=== PATIENT | female | born 1975 | race Caucasian/White ===

== ENCOUNTER 2024-01-03 20:12 | Emergency (ER) | payer SELFPAY ==
[2024-01-03 20:13] VITALS: BP 110/72; PULSE 75; RESP 16; TEMP 36.3; O2SAT 99; BMI 19.7
== END 2024-01-03 20:40 | disposition left against medical advice (07) ==
LOC: ED 21:06
DX: K08.89 Other specified disorders of teeth and supporting structures (principal); Z53.21 Procedure and treatment not carried out due to patient leaving prior to being seen by health care provider

== ENCOUNTER 2024-02-20 17:13 | Emergency (ER) | payer MEDICAID, SELFPAY ==
[2024-02-20 17:13] VITALS: BP 136/81; PULSE 99; RESP 14; TEMP 36.1; O2SAT 99; BMI 19.5
--- NOTE | 2024-02-20 18:16 | CT_ITS ---
STUDY: CT ABDOMEN AND PELVIS WITH CONTRAST REASON FOR EXAM: Female, 48 years old. Weight loss and pelvic mass. S/p hysterectomy years RADIATION DOSAGE (If Supplied By Facility): CTDIvol = ( 12.53 ) mGy, DLP = ( 241.19 ) mGycm TECHNIQUE: Transaxial images were obtained from the dome of the diaphragm to the symphysis pubis without oral contrast. IV 75mL Isovue-370 was administered. Sagittal and coronal images were reconstructed. Individualized dose optimization techniques were used for this CT. COMPARISON: None. FINDINGS: There is mild focal right lower lung airspace consolidation. The visualized portions of the heart are within normal limits. Normal liver. Normal gallbladder and extrahepatic biliary system. Normal spleen. Normal pancreas. Normal bilateral adrenal glands. There is 2.7 cm cyst of the right kidney. Normal left kidney. Normal visualized stomach. Normal small intestine. Normal colon. There is moderate stool. The appendix is visualized and appears normal. Normal abdominal aorta. Normal inferior vena cava. Normal retroperitoneum. Normal urinary bladder. There is absence of the uterus consistent with a prior hysterectomy. There is no free fluid in the abdomen or pelvis. Normal abdominal wall. Normal osseous structures. CT/Abdomen/Pelvis W IV Cont ONLY IMPRESSION: No dominant mass or obstruction. Small right lower lobe pneumonia. Electronically Signed: Hossein Day MD at 19:57 EST ,
--- NOTE | 2024-02-20 18:18 | EX.ED.DYSGE1 ---
HPI History of Present Illness Chief Complaint: General Illness Informant: patient Onset/Context/Timing Onset: Month(s) Context: Gradual Onset Timing: Continuous Current Severity: Mild Maximum Severity: Mild Narrative Narrative: 48-year-old female history of prior hysterectomy years ago. Was seen in the [facility] facilities about a month ago. Had a pelvic ultrasound that they thought was her uterus and they found that she had a hysterectomy they are concerned she might have a pelvic mass. They have been trying to get a hold of her but patient says she has not been taking calls. They did get a hold of her today and she came in to be evaluated. She believes that she has had a weight loss of around 17 to 24 pounds in the last 3 months. For the last 2 years she has had intermittent constipation and diarrhea. Patient has a history of anxiety and would like something for her nerves. No history of cancer. No other significant abdominal surgeries. Prior similar symptoms: Yes Recent Illness/Hospitalization: No PFSH PFSH Medical History History of pulmonary embolism Anxiety Allergy/AdvReac Type Severity Reaction Status Date / Time metronidazole (From Flagyl) Allergy Severe Anaphylaxis Verified 02/20/24 17:14 Surgical History History of back surgery H/O: hysterectomy Social History Smoking Status: Unknown if ever smoked ROS ROS ED ROS Narrative Unintentional weight loss. Constipation and diarrhea. Constitutional Constitutional ED: Denies chills or fever(s) Eyes Eyes: Denies blurry vision ENT ENT ED: Denies ear pain Cardiovascular Cardiovascular: Denies chest pain Respiratory/Chest Respiratory/Chest: Denies cough or dyspnea Gastrointestinal Gastrointestinal: Reports constipation and diarrhea; Denies abdominal pain, melena, nausea or vomiting Genitourinary Genitourinary ED: Denies dysuria or hematuria Musculoskeletal Musculoskeletal: Denies arthralgias Integumentary Denies abscess Neurologic Neurologic: Denies headache(s) Psychiatric Psychiatric: Reports anxiety Endocrine Endocrinology: Denies cold intolerance Hematologic/Lymphatic Hematologic/Lymphatic: Reports none Allergic/Immunologic Allergic/Immunologic ED: Denies mouth swelling, tongue swelling or urticaria EXAM Physical Exam Narrative Exam Narrative: Well-appearing middle-aged female. Vital signs are stable afebrile. She is anxious. H EENT exam unremarkable. Neck nontender. Lungs clear. Heart regular rate and rhythm rate about 95 no murmur. Chest wall and ribs nontender. Abdomen soft, nontender, nondistended normal bowel sounds peritoneal signs. No obvious mass. Back nontender. Moving all 4 extremities. Nontender no edema. Normal strength. Normal range of motion. She is awake and alert. No focal motor deficits. Const Vital Signs: 02/20/24 17:13 02/20/24 18:09 02/20/24 20:00 Temperature 97 F L Temperature Source Temporal Pulse Rate 99 67 Respiratory Rate 14 12 Respiratory Effort Normal Respiratory Pattern Normal Blood Pressure 136/81 H 94/76 Blood Pressure Mean 99 82 Pulse Ox 99 96 Oxygen Delivery Method Room Air Room Air Positive well nourished and well developed; Negative for obese, cachectic, contractures or unkempt General Appearance ED: well developed and NAD; Negative for unkempt, cachectic, contractures, cyanotic, diaphoretic or pallor Nutritional Appearance: Negative for cachectic or obese HEENT Reports moist mucous membranes Negative for trauma or tenderness Eyes PERRL and EOMs intact bilaterally Neck no lymphadenopathy, supple and no JVD General: Negative for tenderness Lymph Lymphatic: Negative for other Chest Wall inspection of chest normal and palpation of chest normal Resp normal respiratory effort and clear to auscultation bilaterally Effort and Inspection: Negative for retractions Auscultation: Negative for rales, rhonchi or wheezes Cardio regular rate, regular rhythm, S1 normal heart sound, S2 normal heart sound and no murmurs Rate: Negative for bradycardia or tachycardic Rhythm: Negative for abnormal rhythm GI normal to inspection, nondistended, normoactive bowel sounds, non-tender, non-distended and no masses; Negative for hepatosplenomegaly Inspection: Negative for abdominal distention Auscultation: normoactive bowel sounds Palpation: soft; Negative for tender, guarding, splenomegaly or rebound tenderness present Back/Spine no CVA tenderness General Back: Negative for CVA tenderness Cervical Spine: Negative for cervical spine tenderness Thoracic Spine / Upper Back: Negative for thoracic spinal tenderness Lumbar Spine / Lower Back: Negative for lumbar spinal tenderness Extremity normal to inspection General Extremety ED: Negative for edema or tenderness General Extremity: Negative for edema Neuro oriented x3 and CN's II-XII intact bilaterally Sensorium / Orientation: alert; Negative for orientation impaired, lethargic or stuporous Psych mental status grossly normal Appearance: Negative for unkempt Attitude: No agitated Mood & Affect: anxious; Negative for depressed Skin no rashes or lesions noted and no wounds General Skin Exam: Negative for jaundice or pallor Lesions: No lesion noted Rashes: No rashes noted Trauma: Negative for abrasion Wounds: Negative for wounds noted MDM MDM MDM Narrative Medical decision making narrative: 48-year-old female reported hysterectomy years ago. Has had recent weight loss of the last 3 months of around 20 pounds. Concern on a prior ultrasound another facility may have shown a mass. CAT scan and labs are being obtained. Exam is benign. She be given a dose of IV Ativan for her nerves and anxiety. Repeat exam patient is doing well at 8:44 PM. Abdomen benign. She will be discharged home with outpatient follow-up with her primary care physician to [facility]. Weight loss uncertain etiology. History & Record Review Discussion w/independent historian: Patient and Friend Lab Data Attestation: I reviewed the patient's lab results. Lab results narrative: CBC normal. White count of 10. H&H 14 and 42. Platelets 307. Electrolytes unremarkable gap 5. Normal BUN and creatinine. Glucose 98. Liver enzymes normal. CAT scan no acute abnormality. Labs: Laboratory Results - last 24 hr 02/20/24 18:24 WBC 10.3 RBC 4.56 Hgb 14.7 Hct 42.0 MCV 92.1 MCH 32.2 H MCHC 35.0 RDW Std Deviation 46.8 H RDW Coeff of Angel 13.7 Plt Count 307 MPV 9.1 Immature Gran % (Auto) 0.300 Neut % (Auto) 57.6 Lymph % (Auto) 32.2 [place] % (Auto) 7.9 Eos % (Auto) 1.6 Baso % (Auto) 0.4 Absolute Neuts (auto) 5.9 Absolute Lymphs (auto) 3.30 Nucleated RBC % 0 Sodium 142 Potassium 3.6 Chloride 110 H Carbon Dioxide 27.0 Anion Gap 5 BUN 11 Creatinine 0.85 Estim Creat Clear Calc 65.81 Est GFR (MDRD) Af Amer 91 Est GFR (MDRD) Non-Af 75 BUN/Creatinine Ratio 12.9 Glucose 98 Calcium 9.3 Total Bilirubin 0.30 AST 10 L ALT 19 Alkaline Phosphatase 57 Total Protein 7.0 Albumin 3.8 Globulin 3.2 Albumin/Globulin Ratio 1.2 Radiography Diagnostic Testing: Clinical Impression(s) from Imaging Studies Abdomen/Pelvis CT 02/20/24 18:16 IMPRESSION: No dominant mass or obstruction. Small right lower lobe pneumonia. Electronically Signed: Hossein Day MD at 19:57 EST , Discharge Plan Triage Chief Complaint: General Illness ED Provider: Juan Lovell Dx/Rx/DC Orders Clinical Impression: Abnormal weight loss Primary Care Provider: Care Physician,No Primary Referrals: Care Physician,No Primary [Primary Care Provider] - Activity Restrictions/Additional Instructions: Follow-up with your primary care physician for your weight loss. We do not have a specific cause for that tonight. Your lab work was normal. The CAT scan of your abdomen showed no signs of any type of mass or cancer. Print Language: Divehi Disposition Disposition: Home, Self Care
[2024-02-20] MEDS: LORazepam 2 MG/ML Syringe 1 MG IV (18:25)
[2024-02-20 18:32] LABS: Absolute Neutrophil Count 5.9 X10^3/uL (2.0-7.7); Basophil# 0.04 X10^3/uL; Basophil% 0.4 % (0-1); Eosinophil# 0.16 X10^3/uL; Eosinophils% 1.6 % (0-5); Hemoglobin 14.7 g/dL (12.0-15.0); Lymphocyte % 32.2 % (19-41); Mean Corpuscular Hgb 32.2 pg (27.0-32.0); Mean Corpuscular Volume 92.1 fL (81-99); Mean Platelet Vol. 9.1 fl (6.2-12.0); Monocyte# 0.81 X10^3/uL; Monocyte% 7.9 % (0-10); NRBC Flagged by Analyzer 0 % (0-5); Neutrophil # 5.91 X10^3/uL (2.7-7.7); Neutrophil % 57.6 % (47-70); Platelet Count 307 K/mm3 (150-450); RBC Distribution Width CV 13.7 % (11.6-14.6); RBC Distribution Width SD 46.8 fl (35.1-43.9); Red Blood Count 4.56 M/mm3 (4.2-5.4); White Blood Count 10.3 K/mm3 (4.4-11.0)
[2024-02-20 18:49] LABS: ALB/GLOB Ratio 1.2 RATIO (0.9-2.4); AST(SGOT) 10 U/L (15-37); Alanine Aminotransfer ALT/SGPT 19 U/L (13-56); Albumin, Serum 3.8 g/dL (3.2-5.0); Alkaline Phosphatase 57 U/L (45-117); Anion Gap 5 (5-15); BUN 11 mg/dL (7-18); BUN/Creat Ratio 12.9 RATIO (10-20); Calcium,Total 9.3 mg/dL (8.5-10.1); Chloride 110 mmol/L (98-107); Creatinine, Serum 0.85 mg/dL (0.55-1.02); EST Glomerular Filtration Rate 75 mL/min (>60); Est Glom Filt Rate - Afr Amer 91 mL/min (>60); Estimated Creatinine Clearance 65.81 ml/min; Globulin 3.2 g/dL (2.2-4.2); Glucose 98 mg/dL (74-106); Potassium 3.6 mmol/L (3.5-5.1); Sodium Level 142 mmol/L (136-145)
[2024-02-20 20:00] VITALS: BP 94/76; PULSE 67; RESP 12; O2SAT 96
[2024-02-20 20:57] VITALS: BP 98/61; PULSE 92; RESP 18; TEMP 36.6; O2SAT 98
== END 2024-02-20 20:58 | disposition home or self-care (01) ==
PROVIDERS: Emergency Provider Emergency Medicine; Visit Provider Emergency Medicine
DX: R19.00 Intra-abdominal and pelvic swelling, mass and lump, unspecified site (principal); R63.4 Abnormal weight loss; F41.9 Anxiety disorder, unspecified; K59.00 Constipation, unspecified; R19.7 Diarrhea, unspecified; Z86.711 Personal history of pulmonary embolism; Z90.710 Acquired absence of both cervix and uterus
CPT/HCPCS: 74177; 80053; 85025; 96374; 99283; Q9967; A4216

== ENCOUNTER 2024-06-04 00:08 | Emergency (ER) | payer MEDICAID, SELFPAY ==
[2024-06-04 00:10] VITALS: BP 106/72; PULSE 100; RESP 18; TEMP 36.9; O2SAT 96; BMI 19.5
--- NOTE | 2024-06-04 00:58 | CT_ITS ---
PROCEDURE: SPINE CERVICAL WITHOUT CONTRAS REASON FOR EXAM: Neck pain TECHNIQUE: Cervical spine CT without contrast. Coronal and sagittal reformatted images COMPARISON: None. FINDINGS: No fracture or malalignment. Straightening may represent position or spasm. No prevertebral soft tissue swelling. C5-6 greater than C3-4 spondylosis/discogenic change with bilateral foraminal narrowing at C5-6. The visualized apices are clear. CT/Spine Cervical without Contras IMPRESSION: No fracture or malalignment. Straightening may represent positioning or spasm. No prevertebral soft tissue swelling. Spondylosis/discogenic changes above. One or more dose reduction techniques were used (e.g., Automated exposure contr ol, adjustment of the mA and/or kV according to patient size, use of iterative reconstruction technique). Reading Location: [id number]
--- NOTE | 2024-06-04 00:58 | CT_ITS ---
EXAM: Noncontrast head CT CLINICAL HISTORY: Head injury COMPARISON: None available TECHNIQUE: Noncontrast head CT with coronal and sagittal reformatted images FINDINGS: No intracranial hemorrhage, mass effect or calvarial fracture. The ventricles are within limits and midline. Mild incidental appearing inferior right frontal sinus and right anterior ethmoid sinus disease. Otherwise the visualized paranasal sinuses, mastoids and orbits appear within limits. CT/Brain/Head without Contrast IMPRESSION: No intracranial hemorrhage, mass effect or calvarial fracture. Mild incidental appearing right frontal and ethmoid sinus disease as above. Reading Location: [id number]
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
[2024-06-04] MEDS: Acetaminophen 500 MG Tablet 1000 MG PO (01:56)
[2024-06-04 02:18] VITALS: BP 104/56; PULSE 67; RESP 14; TEMP 36.6; O2SAT 98
== END 2024-06-04 02:19 | disposition home or self-care (01) ==
PROVIDERS: Emergency Provider Emergency Medicine; Visit Provider Emergency Medicine
DX: S06.0X0A Concussion without loss of consciousness, initial encounter (principal); M54.2 Cervicalgia; Y04.8XXA Assault by other bodily force, initial encounter; Y92.039 Unspecified place in apartment as the place of occurrence of the external cause; F17.290 Nicotine dependence, other tobacco product, uncomplicated; Z79.899 Other long term (current) drug therapy
CPT/HCPCS: 70450; 72125; 99283; 99285

== ENCOUNTER 2024-06-04 16:08 | Emergency (ER) | payer MEDICAID, SELFPAY ==
[2024-06-04 16:09] VITALS: BP 111/70; PULSE 73; RESP 15; TEMP 36.4; O2SAT 98; BMI 19.3
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
[2024-06-04] MEDS: Meclizine HCl 25 MG Tablet PO (17:50)
[2024-06-04] MEDS: Naproxen 500 MG Tablet PO (17:51)
[2024-06-04] MEDS: Ondansetron ODT 4 MG Tablet PO (17:53)
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
== END 2024-06-04 17:56 | disposition home or self-care (01) ==
PROVIDERS: Emergency Provider Emergency Medicine; Visit Provider Emergency Medicine
DX: F07.81 Postconcussional syndrome (principal); G44.309 Post-traumatic headache, unspecified, not intractable; F17.290 Nicotine dependence, other tobacco product, uncomplicated

== ENCOUNTER 2024-06-07 09:51 | Emergency (ER) | payer MEDICAID, SELFPAY ==
[2024-06-07 09:51] VITALS: BP 95/53; PULSE 62; RESP 16; TEMP 36.6; O2SAT 100; BMI 19.3
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
[2024-06-07] MEDS: 0.9% Normal Saline (1000mL) 1,000 ML 999 ML IV (10:13)
[2024-06-07] MEDS: DiphenhydrAMINE 50 MG/ML Syringe 25 MG IV (10:14)
[2024-06-07] MEDS: proCHLORPERazine 10 MG/2 ML Vial IV (10:15)
[2024-06-07] MEDS: Ketorolac 15 MG/ML Vial IV (10:15)
[2024-06-07 10:27] LABS: Absolute Lymphocyte Count 2.09 X10^3/uL (0.83-4.51); Absolute Neutrophil Count 5.6 X10^3/uL (2.0-7.7); Basophil# 0.03 X10^3/uL; Basophil% 0.4 % (0-1); Eosinophil# 0.13 X10^3/uL; Eosinophils% 1.5 % (0-5); Hematocrit 40.1 % (37-47); Hemoglobin 13.9 g/dL (12.0-15.0); Lymphocyte # 2.09 X10^3/ul (0.83-4.51); Lymphocyte % 24.7 % (19-41); Mean Corp Hgb Conc 34.7 g/dL (32-36); Mean Corpuscular Hgb 32.2 pg (27.0-32.0); Mean Corpuscular Volume 92.8 fL (81-99); Mean Platelet Vol. 9.8 fl (6.2-12.0); Monocyte# 0.58 X10^3/uL; Monocyte% 6.9 % (0-10); NRBC Flagged by Analyzer 0 % (0-5); Neutrophil % 66.3 % (47-70); Platelet Count 233 K/mm3 (150-450); RBC Distribution Width CV 12.7 % (11.6-14.6); RBC Distribution Width SD 43.6 fl (35.1-43.9); Red Blood Count 4.32 M/mm3 (4.2-5.4); White Blood Count 8.5 K/mm3 (4.4-11.0)
[2024-06-07 10:47] LABS: Anion Gap 9 (5-15); BUN 12 mg/dL (4-19); BUN/Creat Ratio 17.9 RATIO (10-20); Carbon Dioxide 26.2 mmol/L (22.0-29.0); Chloride 105 mmol/L (96-108); Creatinine, Serum 0.68 mg/dL (0.70-1.20); EST Glomerular Filtration Rate 107 (>60); Estimated Creatinine Clearance 80.98 ml/min (50-250); Glucose 95 mg/dL (70-99); Sodium Level 141 mmol/L (133-145)
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
[2024-06-07 11:51] VITALS: BP 90/60; PULSE 55; RESP 16; O2SAT 98
[2024-06-07 13:21] VITALS: BP 95/73; PULSE 60; RESP 16; TEMP 36.8; O2SAT 99
== END 2024-06-07 13:22 | disposition home or self-care (01) ==
PROVIDERS: Emergency Provider Emergency Medicine; Visit Provider Emergency Medicine
DX: F07.81 Postconcussional syndrome (principal); Y04.8XXA Assault by other bodily force, initial encounter; F41.9 Anxiety disorder, unspecified; F17.290 Nicotine dependence, other tobacco product, uncomplicated; Z79.899 Other long term (current) drug therapy
CPT/HCPCS: 80048; 85025; 96361; 96374; 96375; 99282

== ENCOUNTER 2024-07-08 18:26 | Emergency (ER) | payer MEDICAID, SELFPAY ==
[2024-07-08 18:26] VITALS: BP 144/69; PULSE 94; RESP 22; TEMP 36.4; O2SAT 100; BMI 19.8
--- NOTE | 2024-07-08 18:39 | ED.VIS.GI ---
HPI HPI - GI History of Present Illness Chief Complaint: Abd Pain Detail of Chief Complaint: Abdominal pain Informant: patient Narrative Narrative: Patient presents to the emergency department with complaint of abdominal pain that started about a month ago. She describes pain to the right lower abdomen that is worse with movement. She had some mild nausea but no vomiting. She denies urinary symptoms. Patient states 2 days ago she had diarrhea for about 24 hours. She denies blood in her stool or black tarry stools. No significant fever. Patient has had prior hysterectomy but still has her ovaries [facility] Medical History (Updated 07/08/24 @ 21:[address] Vickie Louie, DO) Irritable bowel syndrome History of pulmonary embolism Anxiety Home Medications ?Medication ?Instructions ?Recorded ?Last Taken ?Type aripiprazole 20 mg tablet 20 mg PO DAILY 06/04/24 Unknown History clonazepam 0.5 mg tablet 0.5 mg PO DAILY PRN anxiety 06/04/24 Unknown History hydrocodone-acetaminophen 5-325mg 1 tab PO Q4H PRN PRN Pain 2 days 07/08/24 Unknown Rx 5mg-325mg #14 TABLETS Allergy/AdvReac Type Severity Reaction Status Date / Time metronidazole (From Flagyl) Allergy Severe Anaphylaxis Verified 07/08/24 18:26 Surgical History (Updated 07/08/24 @ 18:57 by Clifford Balderrama) Hx of tubal ligation History of back surgery H/O: hysterectomy Social History Smoking Status: Current every day smoker tobacco type: e-cigarettes ROS ROS ED Review of Systems ROS Unobtainable: other Constitutional Constitutional ED: Reports lethargy; Denies chills, fever(s), sweats or weight loss Eyes Eyes: Denies blurry vision, change in vision or diplopia ENT ENT ED: Denies rhinorrhea or sore throat Cardiovascular Cardiovascular: Denies chest pain, orthopnea or racing heartbeat Respiratory/Chest Respiratory/Chest: Denies cough, dyspnea, dyspnea on exertion, orthopnea or sputum Gastrointestinal Gastrointestinal: Reports abdominal pain, diarrhea and nausea; Denies vomiting Genitourinary Genitourinary ED: Denies dysuria, hematuria or urinary frequency Musculoskeletal Musculoskeletal: Denies arthralgias, back pain, myalgias or neck pain Integumentary Denies abscess, Abrasions or rash Neurologic Neurologic: Denies headache(s) or weakness Psychiatric Psychiatric: Denies anxiety, depression or suicidal thoughts Endocrine Endocrinology: Denies polydipsia, polyphagia or polyuria Hematologic/Lymphatic Hematologic/Lymphatic: Denies easy bleeding, easy bruising or lymphadenopathy Allergic/Immunologic Allergic/Immunologic ED: Denies mouth swelling, tongue swelling or urticaria EXAM Physical Exam Const Vital Signs: 07/08/24 18:26 07/08/24 19:00 Temperature 97.6 F L Temperature Source Temporal Pulse Rate 94 81 Respiratory Rate 22 H 16 Blood Pressure 144/69 H 123/78 H Blood Pressure Mean 94 93 Pulse Ox 100 98 Oxygen Delivery Method Room Air Room Air Positive well nourished and well developed General Appearance ED: well developed and NAD HEENT Reports TM's clear and moist mucous membranes normocephalic and atraumatic; Negative for trauma or tenderness Tympanic Membrane ED: Yes TM's clear Eyes PERRL and EOMs intact bilaterally General Eye ED: Negative for pale conjunctiva or scleral icterus Neck no lymphadenopathy, supple and no JVD General: Negative for tenderness Chest Wall inspection of chest normal and palpation of chest normal Chest: Negative for tenderness Resp normal respiratory effort and clear to auscultation bilaterally Effort and Inspection: Negative for respiratory distress or pain with movement Auscultation: Negative for rhonchi, wheezes or diminished lung sounds Cardio regular rate, regular rhythm, S1 normal heart sound, S2 normal heart sound and no murmurs Peripheral Pulses: pulses 2+ throughout GI normal to inspection, nondistended, normoactive bowel sounds, soft to palpation, non-tender and no masses GI Narrative: Tenderness palpation over right lower quadrant with some guarding. No rebound, rigidity, or peritoneal signs. No mass palpated. Back/Spine no CVA tenderness and no thoracic nor lumbar tenderness Extremity normal to inspection General Extremety ED: Negative for edema General Extremity: Negative for edema Neuro oriented x3, CN's II-XII intact bilaterally, no sensory deficits noted and gait normal Sensorium / Orientation: awake, alert, oriented to person, oriented to place and oriented to time Motor Exam: strength 5/5 throughout and strength abnormal Psych mental status grossly normal Skin no rashes or lesions noted and no wounds MDM MDM MDM Narrative Medical decision making narrative: Patient presents with abdominal pain for about a month. Pain mostly right lower quadrant. Also 2 days ago had diarrheal illness. Clinically looks well. CBC with differential white count 9.6 with hemoglobin 15.7 platelet count of 283. Chemistries unremarkable. LFTs were normal. Urinalysis without sign of infection. CT scan of the abdomen pelvis with IV contrast showed a right ovarian cyst and some dilated small bowel in the pelvis that may represent an ileus but no signs of obstruction. I did obtain a pelvic ultrasound to rule out torsion and this was negative for torsion but it did show a 5 cm hemorrhagic ovarian cyst. Will discuss case with PEARL PELLER on-call. Will arrange follow-up. Patient patient will be given a prescription for [place] for pain. PEARL PELLER asked that patient call office tomorrow for follow-up appointment. Lab Data Attestation: I reviewed the patient's lab results. Labs: Laboratory Results - last 24 hr 07/08/24 07/08/24 18:48 18:50 WBC 9.6 RBC 4.88 Hgb 15.7 H Hct 44.1 MCV 90.4 MCH 32.2 H MCHC 35.6 RDW Std Deviation 43.9 RDW Coeff of Angel 13.3 Plt Count 283 MPV 9.3 Immature Gran % (Auto) 0.400 Neut % (Auto) 59.0 Lymph % (Auto) 31.2 Young % (Auto) 7.5 Eos % (Auto) 1.4 Baso % (Auto) 0.5 Absolute Neuts (auto) 5.7 Absolute Lymphs (auto) 2.99 Nucleated RBC % 0 Sodium 136 Potassium 3.7 Chloride 103 Carbon Dioxide 20.9 L Anion Gap 13 BUN 13 Creatinine 0.80 Estim Creat Clear Calc 70.23 Est GFR (MDRD) Non-Af 90 BUN/Creatinine Ratio 16.7 Glucose 86 Lactic Acid 1.1 Calcium 9.4 Total Bilirubin 0.51 AST 17 ALT 10 Alkaline Phosphatase 56 Total Protein 7.5 Albumin 4.5 Globulin 3.0 Albumin/Globulin Ratio 1.5 Urine Color Yellow Urine Clarity Sl. Cloudy Urine pH 6.5 Ur Specific [place] 1.015 Urine Protein 15 H Urine Glucose (UA) Normal Urine Ketones 5 H Urine Occult Blood 10 H Urine Nitrite Negative Urine Bilirubin Negative Urine Urobilinogen 1 H Ur Leukocyte Esterase 25 H Urine RBC 5-10 SEEN Urine WBC 0-5 SEEN Ur Squamous Epith Cells 10-25 SEEN Ur Transition Epith Cell 0-5 SEEN Urine Bacteria 1+ Urine Mucus 1+ Radiography Diagnostic Testing: Clinical Impression(s) from Imaging Studies Abdomen/Pelvis CT 07/08/24 19:15 IMPRESSION: No evidence of acute appendicitis. 5.3 cm right ovarian cyst. Recommend pelvic ultrasound for further characterization. Fluid-filled portions of the distal small bowel within the pelvis, may represent ileus, no wall thickening or distention to suggest obstruction. Please see other nonacute findings as described above. Reading [facility] Pelvic/Transvag US 07/08/24 19:47 IMPRESSION: 1. No evidence of ovarian torsion. 2. Right hemorrhagic cyst, which does not require further dedicated follow-up. Reading Location: [id number] Discharge Plan Triage Chief Complaint: Abd Pain ED Provider: Vickie Louie Dx/Rx/DC Orders Clinical Impression: Hemorrhagic cyst of ovary Instructions: ED Ovarian Cyst Prescriptions: New hydrocodone-acetaminophen 5-325 mg tablet 1 tab PO Q4H PRN PRN (Reason: Pain) 2 Days Qty: 14 0RF No Action clonazepam 0.5 mg tablet 0.5 mg PO DAILY PRN (Reason: anxiety) aripiprazole 20 mg tablet 20 mg PO DAILY Primary Care Provider: Rome Welch,Out of Referrals: Treasure Goldstein MD [Med Staff - Active Staff] - 5-7 Days Rome Welch,Out of [Primary Care Provider] - Print Language: Slovak Disposition Disposition: Home, Self Care
[2024-07-08] MEDS: Ondansetron 4 MG/2 ML Vial IV (18:52)
[2024-07-08] MEDS: Morphine 4 MG/ML Syringe IV (18:52)
[2024-07-08 19:00] VITALS: BP 123/78; PULSE 81; RESP 16; O2SAT 98
[2024-07-08 19:12] LABS: Absolute Lymphocyte Count 2.99 X10^3/uL (0.83-4.51); Absolute Neutrophil Count 5.7 X10^3/uL (2.0-7.7); Basophil# 0.05 X10^3/uL; Basophil% 0.5 % (0-1); Eosinophil# 0.13 X10^3/uL; Eosinophils% 1.4 % (0-5); Hematocrit 44.1 % (37-47); Hemoglobin 15.7 g/dL (12.0-15.0); Lymphocyte # 2.99 X10^3/ul (0.83-4.51); Lymphocyte % 31.2 % (19-41); Mean Corp Hgb Conc 35.6 g/dL (32-36); Mean Corpuscular Hgb 32.2 pg (27.0-32.0); Mean Corpuscular Volume 90.4 fL (81-99); Mean Platelet Vol. 9.3 fl (6.2-12.0); Monocyte# 0.72 X10^3/uL; Monocyte% 7.5 % (0-10); NRBC Flagged by Analyzer 0 % (0-5); Neutrophil # 5.66 X10^3/uL (2.7-7.7); Platelet Count 283 K/mm3 (150-450); RBC Distribution Width CV 13.3 % (11.6-14.6); RBC Distribution Width SD 43.9 fl (35.1-43.9); Red Blood Count 4.88 M/mm3 (4.2-5.4); White Blood Count 9.6 K/mm3 (4.4-11.0)
--- NOTE | 2024-07-08 19:15 | CT_ITS ---
PROCEDURE: ABDOMEN/PELVIS W IV CONT ONLY 07/08/2024 REASON FOR EXAM: RLQ ABDOMINAL PAIN TECHNIQUE: Abdomen and pelvis CT with intravenous contrast. Coronal and Sagittal reconstruction series were provided. PATIENT PREPARATION: Per protocol ORAL CONTRAST TYPE: None. AMOUNT: mL CONTRAST: Isovue 370 VOLUME: 94 cc mL Not Provided Gauge IV One or more dose reduction techniques were used (e.g., Automated exposure control, adjustment of the mA and/or kV according to patient size, use of iterative reconstruction technique. RADIATION DOSE SUMMARY: CTDlvol: 17 mGy DLP: 334 mGycm COMPARISON: CT of the abdomen and pelvis dated 02/20/2024. FINDINGS: Lung bases: Small focal area of opacity involving the right lower lobe, this is similar in appearance to the prior study from February 2024, this may represent focal area of atelectasis/scarring. Heart size is normal. No pericardial effusion. Liver: Normal size. No mass. Gallbladder: Unremarkable Spleen: Normal size. Pancreas: Normal size without evidence of mass surrounding inflammation or ductal dilation. Adrenals: Unremarkable Kidneys: 1.7 cm right renal cyst. No follow-up is recommended. No evidence of hydronephrosis or nephrolithiasis bilaterally. Bladder: Urinary bladder is grossly unremarkable. Reproductive Organs: Status post hysterectomy. 5.3 cm right adnexal cystic lesion with a Hounsfield unit of 13, likely representing ovarian cysts. Bowel: Evaluation of the bowel loops are limited due to lack of oral contrast. The stomach is grossly unremarkable. No inflammatory changes of the small or large bowel. Fluid-filled portions of the small bowel within the pelvis, no wall thickening or dilatation, may represent ileus. Appendix: Unremarkable. Lymph nodes: No lymphadenopathy. Vasculature: Mild diffuse atherosclerotic calcifications are noted. Peritoneum / Retroperitoneum: No free fluid or free air. Bones: Mild degenerative changes of the lumbar spine. CT/Abdomen/Pelvis W IV Cont ONLY IMPRESSION: No evidence of acute appendicitis. 5.3 cm right ovarian cyst. Recommend pelvic ultrasound for further characteriz ation. Fluid-filled portions of the distal small bowel within the pelvis, may represen t ileus, no wall thickening or distention to suggest obstruction. Please see other nonacute findings as described above. Reading Location: [facility]
[2024-07-08] MEDS: Lorazepam 2 MG/ML WCH Syringe 1 MG IV (19:17)
[2024-07-08 19:28] LABS: Color, Urine Yellow (Yellow); Glucose, Dipstick Normal (Normal); Ketone-Dipstick 5 mg/dl (Negative); Leukocyte Esterase-Dipstick 25 /ul (Negative); Nitrite-Dipstick Negative (Negative); Occult Blood-Urine 10 /ul (Negative); Protein-Dipstick 15 mg/dl (Negative); Specific Gravity, Urine 1.015 (1.002-1.030); Urine Bilirubin Dipstick Negative (Negative); Urine Clarity Sl. Cloudy (Clear); Urine Urobilinogen 1 mg/dl (Normal); Urine pH 6.5 (5.0 - 8.0)
--- NOTE | 2024-07-08 19:47 | US_ITS ---
PROCEDURE: PELVIC W/ TRANSVAGINAL 07/08/2024 REASON FOR EXAM: RULE OUT TORSION TECHNIQUE: Transabdominal and transvaginal pelvic ultrasound with color Doppler imaging COMPARISON: Same day CT abdomen pelvis. FINDINGS: Measurements: Uterus: Surgically removed. Right Ovary: 6.3 x 5.9 x 4.3 cm with a volume of 106 mL. Left Ovary: 4.2 x 2.0 x 2.4 cm with a volume of 10.7 mL. Right ovary: Septated right ovarian cyst measuring 5.9 x 5.4 x 4.0 cm, compatible with hemorrhagic cyst. Left ovary: Normal size and echotexture. Other: No large pelvic mass identified. No pelvic fluid visualized. The urinary bladder is moderately distended. Color Doppler: Normal arterial and venous flow to the bilateral ovaries. US/Pelvic w/ Transvaginal IMPRESSION: 1. No evidence of ovarian torsion. 2. Right hemorrhagic cyst, which does not require further dedicated follow-up. Reading Location: [id number]
[2024-07-08 19:54] LABS: Bacteria 1+ /hpf (None Seen); Squamous Epithelial Cells - UA 10-25 SEEN /hpf (5-10); Transitional Epithelial - Ur 0-5 SEEN /hpf (0-5)
[2024-07-08 19:54] LABS: Lactic Acid 1.1 mmol/L (0.0-2.0)
[2024-07-08 19:55] LABS: Mucous, Urine 1+ /hpf (<or=2+); Red Blood Cells-Urine 5-10 SEEN /hpf (0-5); White Blood Cells 0-5 SEEN /hpf (0-5)
[2024-07-08 19:56] LABS: ALB/GLOB Ratio 1.5 RATIO (0.9-2.4); AST(SGOT) 17 U/L (<=31); Alanine Aminotransfer ALT/SGPT 10 U/L (<=34); Albumin, Serum 4.5 g/dL (3.5-5.0); Alkaline Phosphatase 56 U/L (35-104); Anion Gap 13 (5-15); BUN 13 mg/dL (4-19); BUN/Creat Ratio 16.7 RATIO (10-20); Calcium,Total 9.4 mg/dL (7.6-11.0); Carbon Dioxide 20.9 mmol/L (21.0-32.0); Chloride 103 mmol/L (98-108); EST Glomerular Filtration Rate 90 (>60); Estimated Creatinine Clearance 70.23 ml/min (50-250); Glucose 86 mg/dL (70-99); Potassium 3.7 mmol/L (3.3-5.1); Protein, Total 7.5 g/dL (5.9-8.4); Sodium Level 136 mmol/L (133-145); Total Bilirubin 0.51 mg/dL (0.00-1.30)
[2024-07-08 21:00] VITALS: BP 107/62; PULSE 80; RESP 18; O2SAT 96
[2024-07-08 21:19] VITALS: BP 107/62; PULSE 80; RESP 18; TEMP 36.7; O2SAT 96
== END 2024-07-08 21:31 | disposition home or self-care (01) ==
PROVIDERS: Emergency Provider Emergency Medicine; Visit Provider Emergency Medicine
DX: N83.201 Unspecified ovarian cyst, right side (principal); R11.0 Nausea; K58.9 Irritable bowel syndrome, unspecified; F41.9 Anxiety disorder, unspecified; F17.290 Nicotine dependence, other tobacco product, uncomplicated; Z86.711 Personal history of pulmonary embolism; Z90.710 Acquired absence of both cervix and uterus
CPT/HCPCS: 74177; 76830; 76856; 80053; 81001; 83605; 85025; 96374; 96375; 99283; Q9967; A4216; J2405

== ENCOUNTER 2024-07-28 15:55 | Emergency (ER) | payer MEDICAID, SELFPAY ==
[2024-07-28 15:56] VITALS: BP 108/67; PULSE 84; RESP 15; TEMP 36.2; O2SAT 100; BMI 20.2
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
[2024-07-28] MEDS: DiphenhydrAMINE 50 MG/ML Syringe IV (16:46)
[2024-07-28] MEDS: Ketorolac 30 MG/ML Syringe IV (16:46)
[2024-07-28] MEDS: Metoclopramide 10 MG/2 ML Vial IV (16:46)
[2024-07-28] MEDS: 0.9% Normal Saline (1000mL) 1,000 ML 1000 ML IV (16:46)
[2024-07-28 17:40] VITALS: BP 117/78; PULSE 98; RESP 19; TEMP 36.7; O2SAT 98
== END 2024-07-28 17:45 | disposition home or self-care (01) ==
PROVIDERS: Emergency Provider Emergency Medicine; Visit Provider Emergency Medicine
DX: R51.9 Headache, unspecified (principal); F07.81 Postconcussional syndrome; R11.0 Nausea; F17.210 Nicotine dependence, cigarettes, uncomplicated; F41.9 Anxiety disorder, unspecified
CPT/HCPCS: 96361; 96374; 96375; 99283; A4216

== ENCOUNTER 2024-08-09 11:27 | Emergency (ER) | payer MEDICAID, SELFPAY ==
[2024-08-09 11:28] VITALS: BP 113/76; PULSE 75; RESP 16; TEMP 36.5; O2SAT 98; BMI 20.4
[2024-08-09 11:49] VITALS: BP 104/74; PULSE 68; RESP 18; TEMP 36.5; O2SAT 99
[2024-08-09] MEDS: HYDROcodone Bitartrate/Apap 5/325 Tablet PO (11:49)
--- NOTE | 2024-08-09 11:51 | ED.VIS.GI ---
HPI HPI - GI History of Present Illness Chief Complaint: Abd Pain Detail of Chief Complaint: Right lower quadrant pelvic abdominal pain for a month. History of cyst. Informant: patient Abdominal Pain/Flank Pain Onset: Weeks Context: Gradual Onset Timing: Continuous Quality: Sharp Location: RLQ (And pelvis.) Current Severity: Mild Maximum Severity: Mild Worsened by: Nothing Relieved by: Nothing Nausea/Vomiting/Emesis GI Symptom: Negative for Nausea or Vomiting Diarrhea/Melena/Hematochezia GI Symptom: Negative for Diarrhea, Melena or Hematochezia Associated Symptoms Associated Symptoms: Negative for Dysuria, Frequency, Hematuria or Urgency Narrative Narrative: 49-year-old female known right ovarian hemorrhagic cyst for over a month. Cyst is 5 x 5 x 4 cm. With a prior surgery she had a pulmonary emboli after back surgery. She followed up with her [facility] Dr. Treasure Goldstein who instructed her she needed that the cyst out but she is anxious to have that done due to her prior PE. She has also had a prior hysterectomy. Currently is out of her pain medication. Pain is not changed. Denies any dysuria. No fever. No vomiting or diarrhea. Prior similar symptoms: Yes Recent Illness/Hospitalization: No PFSH PFSH Medical History Interstitial cystitis Irritable bowel syndrome History of pulmonary embolism Anxiety Home Medications ?Medication ?Instructions ?Recorded ?Last Taken ?Type aripiprazole 20 mg tablet 20 mg PO DAILY 06/04/24 08/09/24 History clonazepam 0.5 mg tablet 0.5 mg PO DAILY PRN anxiety 06/04/24 08/08/24 History cyclobenzaprine 10 mg tablet 10 mg PO TID PRN muscle spasm #30 07/15/24 08/09/24 Rx tabs hydrocodone-acetaminophen 5-325mg 1 tab PO Q4H PRN Pain 08/09/24 08/09/24 History 5mg-325mg hydrocodone-acetaminophen 5-325mg 1 tab PO Q6H PRN PRN Pain 5 days 08/09/24 Unknown Rx 5mg-325mg #14 TABLETS Allergy/AdvReac Type Severity Reaction Status Date / Time metronidazole (From Flagyl) Allergy Severe Anaphylaxis Verified 08/09/24 11:28 Family History Grandmother Ovarian cancer, Onset Age: 69 Aunt Breast cancer, Onset Age: 45 Surgical History History of endometrial ablation Hx of tubal ligation History of back surgery H/O: hysterectomy Social History number of children: 3 current occupational status: employed current occupation: [employer] Smoking Status: Current every day smoker tobacco type: cigarettes and e-cigarettes do you feel safe at home: Yes additional social history: Boyfriend - Terence ROS ROS ED ROS Narrative Right lower quadrant/pelvic abdominal pelvic pain. Constitutional Constitutional ED: Denies chills or fever(s) ENT ENT ED: Denies ear pain Cardiovascular Cardiovascular: Denies chest pain Respiratory/Chest Respiratory/Chest: Denies cough Gastrointestinal Gastrointestinal: Reports abdominal pain; Denies constipation, diarrhea, melena, nausea or vomiting Genitourinary Genitourinary ED: Denies dysuria or hematuria Musculoskeletal Musculoskeletal: Denies arthralgias or back pain Integumentary Denies abscess Neurologic Neurologic: Denies headache(s) Endocrine Endocrinology: Denies polydipsia Hematologic/Lymphatic Hematologic/Lymphatic: Denies easy bleeding Allergic/Immunologic Allergic/Immunologic ED: Denies mouth swelling, tongue swelling or urticaria EXAM Physical Exam Narrative Exam Narrative: 49-year-old female sitting upright in bed. Vital signs stable afebrile. H EENT exam pupils round react to light. Moist mucous membranes. Lungs clear to auscultation. Heart regular rhythm rate about 70 no murmur. Chest wall ribs nontender. Abdomen soft nondistended normal bowel sounds without peritoneal signs. She has tenderness in the right lower quadrant between McBurney's point and her lower groin region. It appears to be too low to be the appendix. Said is the same pain she has been having for 1 to 2 months. There is no hernia or mass. No distention or obstruction. Right upper and left side of her abdomen is nontender. There is no distention. Back nontender. Moving all 4 extremities. Nontender no edema. Neurologically she is awake and alert. Const Vital Signs: 08/09/24 11:28 08/09/24 11:49 Temperature 97.7 F L 97.7 F L Temperature Source Oral Pulse Rate 75 68 Respiratory Rate 16 18 Blood Pressure 113/76 104/74 Blood Pressure Mean 88 84 Pulse Ox 98 99 Oxygen Delivery Method Room Air Positive well nourished and well developed; Negative for obese, cachectic, contractures or unkempt General Appearance ED: well developed and NAD; Negative for unkempt, cachectic, contractures or pallor Nutritional Appearance: Negative for cachectic or obese HEENT Reports moist mucous membranes normocephalic and atraumatic Eyes PERRL and EOMs intact bilaterally General Eye ED: Negative for pale conjunctiva or scleral icterus Neck no lymphadenopathy, supple and no JVD General: Negative for tenderness Resp normal respiratory effort and clear to auscultation bilaterally Cardio regular rate, regular rhythm, S1 normal heart sound, S2 normal heart sound and no murmurs Rate: Negative for bradycardia or tachycardic GI non-distended and no masses; Negative for non-tender GI Narrative: Deep right lower quadrant/pelvic reproducible tenderness. No hernia or mass. No distention. Inferior and medial to McBurney's point. Inspection: Negative for abdominal distention Auscultation: normoactive bowel sounds Palpation: soft and tender; Negative for guarding, rigid, hepatomegaly, splenomegaly, hernia, mass, pulsatile mass or rebound tenderness present Back/Spine no CVA tenderness Extremity full ROM General Extremety ED: Negative for edema or tenderness General Extremity: Negative for edema Neuro CN's II-XII intact bilaterally and moves all extremities Sensorium / Orientation: alert, oriented to person, oriented to place and oriented to time Motor Exam: strength 5/5 throughout Psych mental status grossly normal and thought process normal Appearance: Negative for unkempt Skin no wounds General Skin Exam: Negative for jaundice or pallor Lesions: no lesions Rashes: no rashes Trauma: Negative for abrasion Nails: Negative for discolored MDM MDM MDM Narrative Medical decision making narrative: For now female no acute distress acute on chronic right lower quadrant pelvic pain due to known ovarian cyst. She is nervous about surgery due to a prior PE after back surgery. Explained to her that would be much less likely after this type of surgery and then back surgery. She is already seen her [facility] Dr. Treasure Goldstein. Should be given 1 hydrocodone here. A prescription at home for 12. An outpatient follow-up with her [facility] to decide if she can have the surgery or not. I do not think she needs any additional labs or imaging she has had a recent CAT scan and ultrasound of the area plus lab work. She has had a prior hysterectomy. History & Record Review Discussion w/independent historian: Patient Additional record(s) reviewed:: Prior inpatient record, Prior outpatient record, Prior ED visit and Prior labs Discharge Plan Triage Chief Complaint: Abd Pain ED Provider: Juan Lovell Dx/Rx/DC Orders Clinical Impression: Hemorrhagic cyst of ovary Instructions: ED Ovarian Cyst Prescriptions: New hydrocodone-acetaminophen 5-325 mg tablet 1 tab PO Q6H PRN PRN (Reason: Pain) 5 Days Qty: 14 0RF No Action cyclobenzaprine 10 mg tablet 10 mg PO TID PRN (Reason: muscle spasm) Qty: 30 2RF clonazepam 0.5 mg tablet 0.5 mg PO DAILY PRN (Reason: anxiety) Patient Comments: PT TAKES AT BEDTIME AND ROUTINELY aripiprazole 20 mg tablet 20 mg PO DAILY hydrocodone-acetaminophen 5-325 mg tablet 1 tab PO Q4H PRN (Reason: Pain) Primary Care Provider: Care Physician,No Primary Referrals: Treasure Goldstein MD [Med Staff - Active Staff] - As soon as possible Care Physician,No Primary [Primary Care Provider] - Activity Restrictions/Additional Instructions: Call and follow-up with your [facility] Dr. Treasure Goldstein to determine if treatment has surgery or not. Motrin and hydrocodone for pain. Print Language: [place] Disposition Disposition: Home, Self Care
== END 2024-08-09 12:18 | disposition home or self-care (01) ==
PROVIDERS: Emergency Provider Emergency Medicine; Visit Provider Emergency Medicine
DX: N83.201 Unspecified ovarian cyst, right side (principal); Z79.899 Other long term (current) drug therapy; F17.210 Nicotine dependence, cigarettes, uncomplicated; F17.290 Nicotine dependence, other tobacco product, uncomplicated; Z90.710 Acquired absence of both cervix and uterus
CPT/HCPCS: 99285

== ENCOUNTER 2024-08-11 10:27 | Emergency (ER) | payer MEDICAID, SELFPAY ==
[2024-08-11 10:27] VITALS: BP 117/56; PULSE 87; RESP 16; TEMP 36.6; O2SAT 98; BMI 20.2
--- NOTE | 2024-08-11 10:43 | ED.VIS.FEGU ---
HPI HPI - Female History of Present Illness Chief Complaint: Female C/O Detail of Chief Complaint: Burning sensation superior to the inguinal crease Informant: patient Pain Pain: Negative for Pelvic Pain, Vulvar Pain or Vaginal Pain Timing: Continuous Quality: Positive for Burning Location: - (Superior right inguinal crease up to the anterior superior iliac spine region) Current Severity: Mild Maximum Severity: Moderate Worsened by: Movement Relieved by: - (Nothing) Bleeding Issue: Negative for Vaginal bleeding, Passing clots or Passing tissue Associated Symptoms Associated Symptoms: Negative for Dysuria, Frequency, Urgency or Hematuria Last known menstrual period: 2005. Patient had ablation. Sexually: Positive for Active Narrative Narrative: Patient is a 49-year-old woman. She has been having pain for approximately 2 months. She had an ultrasound on July 08, 2024 at [facility] and was found to have a hemorrhagic right ovarian cyst. The right ovary was septated and the cyst measured 5.9 x 5.4 x 4.0 cm. What prompted her to come in today is the burning sensation. Movement does make the pain worse. She denies dysuria, frequency, urgency or hematuria. Mother has history of renal/ureteral lithiasis. She denies history of renal or ureteral lithiasis. She explicitly told me this is not her bladder. She was informed that where she is complaining of pain is unusual for pain to be due to an ovarian cyst. She has not noted a rash. There is no history of trauma. She denies nausea, vomiting diarrhea. Prior similar symptoms: Yes Recent Illness/Hospitalization: Yes [facility] Medical History Interstitial cystitis Irritable bowel syndrome History of pulmonary embolism Anxiety Home Medications ?Medication ?Instructions ?Recorded ?Last Taken ?Type aripiprazole 20 mg tablet 20 mg PO DAILY 06/04/24 08/09/24 History clonazepam 0.5 mg tablet 0.5 mg PO DAILY PRN anxiety 06/04/24 08/08/24 History cyclobenzaprine 10 mg tablet 10 mg PO TID PRN muscle spasm #30 07/15/24 08/09/24 Rx tabs hydrocodone-acetaminophen 5-325mg 1 tab PO Q4H PRN Pain 08/09/24 08/09/24 History 5mg-325mg hydrocodone-acetaminophen 5-325mg 1 tab PO Q6H PRN PRN Pain 5 days 08/09/24 Unknown Rx 5mg-325mg #14 TABLETS Allergy/AdvReac Type Severity Reaction Status Date / Time metronidazole (From Flagyl) Allergy Severe Anaphylaxis Verified 08/11/24 12:17 Family History Grandmother Ovarian cancer, Onset Age: 69 Aunt Breast cancer, Onset Age: 45 Surgical History History of endometrial ablation Hx of tubal ligation History of back surgery H/O: hysterectomy Social History household members: spouse housing: house number of children: 3 current occupational status: employed current occupation: [employer] Smoking Status: Current every day smoker tobacco type: cigarettes and e-cigarettes do you feel safe at home: Yes additional social history: Boyfriend - Terence KNUTSON EAMON ED Constitutional Constitutional ED: Denies chills, fever(s), subjective or sweats Cardiovascular Cardiovascular: Denies palpitations Respiratory/Chest Respiratory/Chest: Denies dyspnea Gastrointestinal Gastrointestinal: Reports abdominal pain; Denies constipation, diarrhea, melena, nausea or vomiting Genitourinary Genitourinary ED: Denies dysuria, hematuria or urinary frequency Musculoskeletal Musculoskeletal: Denies arthralgias, myalgias or neck pain Integumentary Denies rash Neurologic Neurologic: Denies paresthesias Psychiatric Psychiatric: Denies anxiety Hematologic/Lymphatic Hematologic/Lymphatic: Denies easy bleeding or easy bruising EXAM Physical Exam Const Vital Signs: 08/11/24 10:27 08/11/24 12:27 Temperature 98 F Temperature Source Temporal Pulse Rate 87 76 Respiratory Rate 16 14 Blood Pressure 117/56 L 115/81 H Blood Pressure Mean 76 92 Pulse Ox 98 98 Oxygen Delivery Method Room Air Positive well nourished and well developed Constitutional Narrative: Patient appears slightly uncomfortable. General Appearance ED: well developed; Negative for odor of alcohol detected HEENT HEENT Narrative: Head is atraumatic normocephalic. Ears normal. Nares patent. Eyes PERRL General Eye ED: Negative for pale conjunctiva or scleral icterus Neck no lymphadenopathy, supple and no JVD Resp normal respiratory effort Cardio regular rate and regular rhythm GI soft to palpation, non-distended and no masses; Negative for non-tender Auscultation: normoactive bowel sounds Palpation: tender other (Over the right kidney/outer portion of the right lower quadrant.) Narrative: External genitalia normal. Vaginal Kos is normal. Patient has vaginal cuff noted. There is tenderness with palpation against the vaginal cuff. There is no discomfort pressure against bladder. Patient guards and unable to determine if she has enlarged ovary or any fullness or mass in the right or left adnexal region. Therefore, we will obtain an ultrasound of the pelvis. Back/Spine no CVA tenderness Extremity normal to inspection and full ROM Neuro oriented x3 and CN's II-XII intact bilaterally Sensorium / Orientation: alert Psych mental status grossly normal Skin no rashes or lesions noted and no wounds Skin Narrative: No hyperesthesia to light touch. MDM MDM MDM Narrative Medical decision making narrative: Differential diagnosis is pain of unknown etiology, possible herpes varicella-zoster, urologic origin or gynecologic origin. Findings are not suggestive of appendicitis especially since she has had pain for 2 months. There is no objective finding of inguinal hernia or ventral hernia. Will obtain CBC, UA and perform pelvic exam. History & Record Review Additional record(s) reviewed:: Prior ED visit (Documented HPI narrative.) and Prior labs Lab Data Attestation: I reviewed the patient's lab results. Lab results narrative: CBC is unremarkable. UA is negative. Labs: Laboratory Results - last 24 hr 08/11/24 08/11/24 10:47 10:48 WBC 6.3 RBC 4.94 Hgb 15.6 H Hct 45.8 MCV 92.7 MCH 31.6 MCHC 34.1 RDW Std Deviation 44.8 H RDW Coeff of Angel 13.1 Plt Count 273 MPV 9.3 Immature Gran % (Auto) 0.300 Neut % (Auto) 54.7 Lymph % (Auto) 34.8 Leon % (Auto) 7.7 Eos % (Auto) 2.2 Baso % (Auto) 0.3 Absolute Neuts (auto) 3.4 Absolute Lymphs (auto) 2.18 Nucleated RBC % 0 Urine Color Yellow Urine Clarity Clear Urine pH 6.0 Ur Specific [place] 1.010 Urine Protein 15 H Urine Glucose (UA) Normal Urine Ketones Negative Urine Occult Blood Negative Urine Nitrite Negative Urine Bilirubin Negative Urine Urobilinogen Normal Ur Leukocyte Esterase Negative Urine RBC 0 SEEN Urine WBC 0 SEEN Ur Squamous Epith Cells 0 SEEN Urine Bacteria 0 SEEN Urine Mucus 0 SEEN Radiography Diagnostic Testing: Clinical Impression(s) from Imaging Studies Transvaginal US 08/11/24 12:48 IMPRESSION: 1. Unremarkable grayscale appearance of the RIGHT ovary. Note that spectral Doppler evaluation was not performed and therefore torsion cannot be excluded however given the normal-size and morphology, this is considered unlikely. 2. 3.7 cm LEFT ovarian lesion compatible with a hemorrhagic cyst, O-RADS 2, no follow-up required. 3. Hysterectomy. 4. Additional description as above. Reading Location: [id number] The impression by radiologist was reviewed. The right ovary appears normal. The ultrasound was not obtained because of concern for torsion. Patient felt that this was due to a large ovarian cyst which has resorbed since July. She now was noted to have a 3.7 cm left ovarian lesion compatible with a hemorrhagic cyst. This is not the site of her pain. Patient is status post hysterectomy. Treatment and Re-Evaluation Narrative: Patient was informed that the ovary on right side is now normal. He has a cyst on the left side. Informed her that the pain may be due to shingles. If she develops a rash she should return to to receive prescription for antiviral Discharge Plan Triage Chief Complaint: Female C/O ED Provider: Richard Bugros Dx/Rx/DC Orders Clinical Impression: Right inguinal pain, Hemorrhagic cyst of left ovary Instructions: ED Ovarian Cyst, ED Pain, Acute, Uncertain Cause Prescriptions: No Action cyclobenzaprine 10 mg tablet 10 mg PO TID PRN (Reason: muscle spasm) Qty: 30 2RF clonazepam 0.5 mg tablet 0.5 mg PO DAILY PRN (Reason: anxiety) Patient Comments: PT TAKES AT BEDTIME AND ROUTINELY aripiprazole 20 mg tablet 20 mg PO DAILY hydrocodone-acetaminophen 5-325 mg tablet 1 tab PO Q4H PRN (Reason: Pain) hydrocodone-acetaminophen 5-325 mg tablet 1 tab PO Q6H PRN PRN (Reason: Pain) 5 Days Qty: 14 0RF Primary Care Provider: Care Physician,No Primary Referrals: Care Physician,No Primary [Primary Care Provider] - Doctor,Your [Non-Staff] - As Needed Activity Restrictions/Additional Instructions: 1. If you develop a rash where you are having the burning pain see your doctor or return immediately to receive antiviral medication. This may represent shingles. 2. You now have a a cyst on the left ovary. Recommend follow-up with your campus wellness coordinator Print Language: Greenlandic Disposition Disposition: Home, Self Care
[2024-08-11 10:54] LABS: Bacteria 0 SEEN /hpf (None Seen); Mucous, Urine 0 SEEN /hpf (<or=2+); Red Blood Cells-Urine 0 SEEN /hpf (0-5); Squamous Epithelial Cells - UA 0 SEEN /hpf (5-10); White Blood Cells 0 SEEN /hpf (0-5)
[2024-08-11 11:10] LABS: Absolute Lymphocyte Count 2.18 X10^3/uL (0.83-4.51); Absolute Neutrophil Count 3.4 X10^3/uL (2.0-7.7); Basophil# 0.02 X10^3/uL; Basophil% 0.3 % (0-1); Eosinophil# 0.14 X10^3/uL; Eosinophils% 2.2 % (0-5); Hematocrit 45.8 % (37-47); Hemoglobin 15.6 g/dL (12.0-15.0); Lymphocyte # 2.18 X10^3/ul (0.83-4.51); Lymphocyte % 34.8 % (19-41); Mean Corp Hgb Conc 34.1 g/dL (32-36); Mean Corpuscular Hgb 31.6 pg (27.0-32.0); Mean Corpuscular Volume 92.7 fL (81-99); Mean Platelet Vol. 9.3 fl (6.2-12.0); Monocyte# 0.48 X10^3/uL; Monocyte% 7.7 % (0-10); NRBC Flagged by Analyzer 0 % (0-5); Neutrophil # 3.42 X10^3/uL (2.7-7.7); Neutrophil % 54.7 % (47-70); Platelet Count 273 K/mm3 (150-450); RBC Distribution Width CV 13.1 % (11.6-14.6); RBC Distribution Width SD 44.8 fl (35.1-43.9); Red Blood Count 4.94 M/mm3 (4.2-5.4); White Blood Count 6.3 K/mm3 (4.4-11.0)
[2024-08-11 11:32] LABS: Color, Urine Yellow (Yellow); Glucose, Dipstick Normal (Normal); Ketone-Dipstick Negative (Negative); Leukocyte Esterase-Dipstick Negative /ul (Negative); Nitrite-Dipstick Negative (Negative); Occult Blood-Urine Negative /ul (Negative); Protein-Dipstick 15 mg/dl (Negative); Urine Bilirubin Dipstick Negative (Negative); Urine Clarity Clear (Clear); Urine Urobilinogen Normal (Normal)
[2024-08-11] MEDS: Ketorolac 15 MG/ML Vial IV (12:21)
[2024-08-11 12:27] VITALS: BP 115/81; PULSE 76; RESP 14; O2SAT 98
--- NOTE | 2024-08-11 12:48 | US_ITS ---
PROCEDURE: TRANSVAGINAL NON-, 08/11/2024 REASON FOR EXAM: RIGHT ADNEXAL PAIN TECHNIQUE: Grayscale and color doppler transvaginal pelvic ultrasound was performed. COMPARISON: 07/08/2024 FINDINGS: Uterus/endometrium: Hysterectomy. Right ovary: 2.8 x 1.4 x 1.6 cm. Unremarkable. Not evaluated with spectral Doppler. Left ovary: 4.6 x 2.6 x 2.9 cm. 3.6 x 3.7 x 2.9 cm complex cyst with a fluid/fluid level and low-level internal echoes within a portion of the cyst. Normal low resistance arterial and venous waveforms. Free fluid: None visualized. Other: None. US/Transvaginal Non- IMPRESSION: 1. Unremarkable grayscale appearance of the RIGHT ovary. Note that spectral Do ppler evaluation was not performed and therefore torsion cannot be excluded however given the normal-size and morphology, this i s considered unlikely. 2. 3.7 cm LEFT ovarian lesion compatible with a hemorrhagic cyst, O-RADS 2, no follow-up required. 3. Hysterectomy. 4. Additional description as above. Reading Location: [id number]
[2024-08-11 14:00] VITALS: BP 128/78; PULSE 78; RESP 18; O2SAT 98
[2024-08-11 14:28] VITALS: BP 128/78; PULSE 78; RESP 18; TEMP 37; O2SAT 98
== END 2024-08-11 14:31 | disposition home or self-care (01) ==
PROVIDERS: Emergency Provider Emergency Medicine; Visit Provider Emergency Medicine
DX: R10.31 Right lower quadrant pain (principal); N83.202 Unspecified ovarian cyst, left side; F17.210 Nicotine dependence, cigarettes, uncomplicated; F17.290 Nicotine dependence, other tobacco product, uncomplicated; Z79.899 Other long term (current) drug therapy; Z90.710 Acquired absence of both cervix and uterus
CPT/HCPCS: 76830; 81001; 85025; 96374; 99282; A4216

== ENCOUNTER → 2024-08-13 | Outpatient (CLI) | payer MEDICAID, SELFPAY ==
[2024-08-13 11:25] LABS: Absolute Lymphocyte Count 2.36 X10^3/uL (0.83-4.51); Absolute Neutrophil Count 4.5 X10^3/uL (2.0-7.7); Basophil# 0.04 X10^3/uL; Basophil% 0.5 % (0-1); Eosinophil# 0.12 X10^3/uL; Eosinophils% 1.6 % (0-5); Hematocrit 45.6 % (37-47); Hemoglobin 15.6 g/dL (12.0-15.0); Lymphocyte # 2.36 X10^3/ul (0.83-4.51); Lymphocyte % 31.1 % (19-41); Mean Corp Hgb Conc 34.2 g/dL (32-36); Mean Corpuscular Hgb 32.2 pg (27.0-32.0); Mean Platelet Vol. 10.4 fl (6.2-12.0); Monocyte# 0.53 X10^3/uL; NRBC Flagged by Analyzer 0 % (0-5); Neutrophil # 4.52 X10^3/uL (2.7-7.7); Neutrophil % 59.5 % (47-70); Platelet Count 285 K/mm3 (150-450); Red Blood Count 4.85 M/mm3 (4.2-5.4); White Blood Count 7.6 K/mm3 (4.4-11.0)
[2024-08-14 08:08] LABS: Carcinoembryonic Antigen 2.9 ng/mL (0.0-4.7)
== END | disposition home or self-care (01) ==
PROVIDERS: Referring Provider Obstetrics & Gynecology; Visit Provider Obstetrics & Gynecology
DX: N94.89 Other specified conditions associated with female genital organs and menstrual cycle (principal)
CPT/HCPCS: 36415; 82378; 85025; 86304

== ENCOUNTER 2024-08-25 20:47 | Observation (INO) | payer MEDICAID, SELFPAY ==
[2024-08-25] VITALS (22 sets, daily range): BP systolic 96–127; BP diastolic 57–83; PULSE 53–100; RESP 16–18; TEMP 36.3–37.3; O2SAT 95–100; BMI 20.4; BMI 21.4
[2024-08-25] MEDS: Enoxaparin 40 MG/0.4 ML Syringe SC (11:55)
[2024-08-25] MEDS: Lactated Ringers 1,000 ML 15 ML IV (12:30)
[2024-08-25] MEDS: Bupivacaine 0.25% 30 ML Vial ×2 (14:02→18:25)
[2024-08-25 17:34] LABS: Hematocrit 39.3 % (37-47); Hemoglobin 13.5 g/dL (12.0-15.0); Mean Corp Hgb Conc 34.4 g/dL (32-36); Mean Corpuscular Hgb 32.1 pg (27.0-32.0); Mean Corpuscular Volume 93.3 fL (81-99); Mean Platelet Vol. 9.5 fl (6.2-12.0); Platelet Count 255 K/mm3 (150-450); RBC Distribution Width SD 44.2 fl (35.1-43.9); Red Blood Count 4.21 M/mm3 (4.2-5.4); White Blood Count 20.3 K/mm3 (4.4-11.0)
[2024-08-25 18:48] LABS: International Normalized Ratio 1.1; Prothrombin Time (Protime)PT. 14.8 SECONDS (11.7-14.9)
[2024-08-25 18:49] LABS: Partial Thromboplast Time 30.8 Seconds (24.1-36.2)
[2024-08-25 19:52] LABS: Fibrinogen 309 mg/dl (203-444)
[2024-08-25 20:50] LABS: Absolute Lymphocyte Count 0.97 X10^3/uL (0.83-4.51); Basophil# 0.05 X10^3/uL; Basophil% 0.3 % (0-1); Hemoglobin 13.5 g/dL (12.0-15.0); Lymphocyte # 0.97 X10^3/ul (0.83-4.51); Mean Corp Hgb Conc 34.6 g/dL (32-36); Mean Corpuscular Hgb 32.2 pg (27.0-32.0); Mean Corpuscular Volume 93.1 fL (81-99); Mean Platelet Vol. 9.6 fl (6.2-12.0); Monocyte# 0.17 X10^3/uL; Monocyte% 0.9 % (0-10); NRBC Flagged by Analyzer 0 % (0-5); Neutrophil # 17.99 X10^3/uL (2.7-7.7); Neutrophil % 93.2 % (47-70); Platelet Count 236 K/mm3 (150-450); RBC Distribution Width CV 13.1 % (11.6-14.6); RBC Distribution Width SD 44.6 fl (35.1-43.9); Red Blood Count 4.19 M/mm3 (4.2-5.4); White Blood Count 19.3 K/mm3 (4.4-11.0)
[2024-08-25] MEDS: clonazePAM 0.5 MG Tablet PO (21:44)
[2024-08-25] MEDS: oxyCODONE 5 MG Tablet PO (21:45)
[2024-08-25] MEDS: Docusate Sodium 100 MG Capsule PO (21:45)
[2024-08-25] MEDS: Lactated Ringers 1,000 ML 70 ML IV (21:46)
[2024-08-25] MEDS: Acetaminophen 500 MG Tablet 1000 MG PO (21:50)
[2024-08-26 01:43] VITALS: BP 94/59; PULSE 81; RESP 16; TEMP 36.5; O2SAT 98
[2024-08-26 03:02] VITALS: BP 107/62; PULSE 68
[2024-08-26] MEDS: oxyCODONE 5 MG Tablet PO ×3 (03:11→12:14)
[2024-08-26 05:09] LABS: Hematocrit 34.7 % (37-47); Mean Corp Hgb Conc 34.6 g/dL (32-36); Mean Corpuscular Volume 92.5 fL (81-99); Mean Platelet Vol. 9.5 fl (6.2-12.0); Platelet Count 254 K/mm3 (150-450); RBC Distribution Width SD 44.1 fl (35.1-43.9); Red Blood Count 3.75 M/mm3 (4.2-5.4); White Blood Count 16.9 K/mm3 (4.4-11.0)
[2024-08-26 06:00] VITALS: BP 101/57; PULSE 79; RESP 16; TEMP 36.6; O2SAT 98
[2024-08-26] MEDS: Acetaminophen 500 MG Tablet 1000 MG PO ×2 (06:10→12:15)
[2024-08-26 08:00] VITALS: BP 101/54; PULSE 80; RESP 16; TEMP 36.6; O2SAT 97
[2024-08-26] MEDS: Docusate Sodium 100 MG Capsule PO (08:27)
[2024-08-26] MEDS: ARIPiprazole 10 MG Tablet 20 MG PO (08:41)
[2024-08-26] MEDS: Ensure Plus High Protein 120 ML LIQUID PO ×2 (08:42→12:15)
[2024-08-26] MEDS: Ketorolac 30 MG/ML Syringe IV (10:41)
[2024-08-26] MEDS: 0.9% Saline Lock 10 ML Syringe IV (10:53)
== END 2024-08-26 13:33 | disposition home or self-care (01) ==
LOC: SDC 21:08 → MS3 08-26 08:07
PROVIDERS: Admitting Provider Obstetrics & Gynecology; Referring Provider Obstetrics & Gynecology; Visit Provider Obstetrics & Gynecology
PROC: 0UT14ZZ Resection of Left Ovary, Percutaneous Endoscopic Approach (ICD-10-PCS; CPT 10140; principal; 2024-08-25 13:40)
DX: N83.02 Follicular cyst of left ovary (principal); F31.9 Bipolar disorder, unspecified; N83.292 Other ovarian cyst, left side; N99.840 Postprocedural hematoma of a genitourinary system organ or structure following a genitourinary system procedure; S30.1XXA Contusion of abdominal wall, initial encounter; N83.8 Other noninflammatory disorders of ovary, fallopian tube and broad ligament; N80.203 Endometriosis of bilateral fallopian tubes, unspecified depth; K58.9 Irritable bowel syndrome, unspecified; F41.9 Anxiety disorder, unspecified; M19.90 Unspecified osteoarthritis, unspecified site; F12.99 Cannabis use, unspecified with unspecified cannabis-induced disorder; F17.210 Nicotine dependence, cigarettes, uncomplicated; Z90.710 Acquired absence of both cervix and uterus; Z86.711 Personal history of pulmonary embolism
CPT/HCPCS: 10140; 58661; 58662; 00840; 36415; 85025; 85027; 85384; 85610; 85730; 86850; 86900; 86901; 88302; 93005; 96374; 99221; A4216; G0378; J2405

== ENCOUNTER 2024-08-28 11:36 | Emergency (ER) | payer MEDICAID, SELFPAY ==
[2024-08-28 11:36] VITALS: BP 123/76; PULSE 66; RESP 14; TEMP 36.6; O2SAT 98; BMI 21.4
--- NOTE | 2024-08-28 11:51 | CT_ITS ---
EXAM: CT Abdomen and Pelvis With Intravenous Contrast CLINICAL INDICATION: POSTOP PAIN TECHNIQUE: Axial computed tomography images of the abdomen and pelvis with intravenous contrast. This CT exam was performed using one or more of the following dose reduction techniques: automated exposure control, adjustment of the mA and/or kV according to patient size, and/or use of iterative reconstruction technique. COMPARISON: CT Abdomen Pelvis dated 07/08/2024 FINDINGS: LUNG BASES: Unremarkable. No mass. No consolidation. ABDOMEN: LIVER: Fatty infiltration of the liver. GALLBLADDER AND BILE DUCTS: Unremarkable. No calcified stones. No ductal dilation. PANCREAS: Unremarkable. No mass. No ductal dilation. SPLEEN: Unremarkable. No splenomegaly. ADRENALS: Unremarkable. No mass. KIDNEYS AND URETERS: 2.3 cm right renal cyst. No hydronephrosis. STOMACH AND BOWEL: Fecal retention in the colon consistent with constipation. No obstruction. No mucosal thickening. PELVIS: APPENDIX: Normal appendix. BLADDER: Unremarkable. No mass. REPRODUCTIVE: Unremarkable as visualized. ABDOMEN and PELVIS: INTRAPERITONEAL SPACE: See below. BONES/JOINTS: No acute fracture. No dislocation. SOFT TISSUES: Subcutaneous soft tissue swelling of the lateral right abdomen and right lower abdominal quadrant. Hypodense lesion of the subcutaneous tissues of the anterior right lower abdomen measuring up to 10.3 x 5.6 cm. This could be a seroma related to recent surgery. Evolving abscess can not be entirely excluded time of surgery. Pneumoperitoneum, likely postoperative changes. VASCULATURE: Unremarkable. No abdominal aortic aneurysm. LYMPH NODES: Unremarkable. No enlarged lymph nodes. CT/Abdomen/Pelvis W IV Cont ONLY IMPRESSION: 1. Normal appendix. 2. Subcutaneous soft tissue swelling of the lateral right abdomen and right lo wer abdominal quadrant. Hypodense lesion of the subcutaneous tissues of the anterior right lower abdomen measuring up to 10.3 x 5.6 cm. This could be a seroma related to recent surgery. Evolving abscess can not be entirely excluded time of surgery. Pneum operitoneum, likely postoperative changes. 3. Fecal retention in the colon consistent with constipation. Reading Location: [facility]
--- NOTE | 2024-08-28 11:53 | EX.ED.DYSGE1 ---
HPI History of Present Illness Chief Complaint: Other, Pain/Inj Informant: patient Narrative Narrative: 3 days postop right salpingo oophorectomy and left salpingectomy with ovarian cystectomy followed by Dr. Goldstein. Patient discharged the following day due to postop abdominal hematoma develop that evening. Pain was controlled upon leaving. However she is using her medications scheduled of oxycodone every 4 hours and naproxen twice a day. Pain worsened yesterday worse with walking states feels like something stabbing down there. No urinary symptoms no vaginal bleeding. No bowel movement since she was discharged she started MiraLAX today. No fevers. Naproxen was taken a couple hours ago, oxycodone taken 3 hours ago. She called her cras referred to the ED. Reports the area of postop surgery has not worsened. [facility] Medical History Wears glasses MRSA infection Bipolar disorder Marijuana use Arthritis Bladder disease Pulmonary embolism Migraine headache Loose, teeth Smoker Interstitial cystitis Irritable bowel syndrome History of pulmonary embolism Anxiety Home Medications ?Medication ?Instructions ?Recorded ?Last Taken ?Type aripiprazole 20 mg tablet 20 mg PO DAILY 06/04/24 08/28/24 History clonazepam 0.5 mg tablet 0.5 mg PO QHS PRN anxiety 06/04/24 08/28/24 History cyclobenzaprine 10 mg tablet 10 mg PO TID PRN muscle spasm #30 07/15/24 08/09/24 Rx tabs enoxaparin 40 mg/0.4 mL 40 mg (0.4 mL) SQ DAILY 14 days 08/25/24 08/26/24 Rx subcutaneous syringe (Lovenox) #20 mL oxycodone-acetaminophen 5 mg-325 1 tab PO Q4H PRN pain 7 days #20 08/25/24 08/28/24 Rx mg tablet (Percocet) tabs naproxen 500 mg tablet 500 mg PO BID PRN Pain 08/28/24 08/28/24 History Allergy/AdvReac Type Severity Reaction Status Date / Time metronidazole (From Flagyl) Allergy Severe Anaphylaxis Verified 08/28/24 11:37 Family History Grandmother Ovarian cancer, Onset Age: 69 Aunt Breast cancer, Onset Age: 45 Surgical History Status post bilateral salpingectomy History of ovarian cystectomy S/P right oophorectomy History of endometrial ablation Hx of tubal ligation History of back surgery H/O: hysterectomy Social History household members: spouse housing: house number of children: 3 current occupational status: employed current occupation: [employer] Smoking Status: Current every day smoker tobacco type: cigarettes and e-cigarettes do you feel safe at home: Yes additional social history: Boyfriend - Terence KNUTSON ROS ED Constitutional Constitutional ED: Denies fever(s) Cardiovascular Cardiovascular: Denies chest pain Respiratory/Chest Respiratory/Chest: Denies cough Gastrointestinal Gastrointestinal: Reports abdominal pain and constipation; Denies diarrhea or vomiting Musculoskeletal Musculoskeletal: Denies none Integumentary Denies rash or wounds Neurologic Neurologic: Denies weakness EXAM Physical Exam Const Vital Signs: 08/28/24 11:36 08/28/24 12:06 08/28/24 12:06 Temperature 98 F 98.6 F Temperature Source Temporal Oral Pulse Rate 66 78 Respiratory Rate 14 16 Respiratory Effort Normal Non-Labored Respiratory Pattern Normal Blood Pressure 123/76 H 128/78 H Blood Pressure Mean 91 94 Pulse Ox 98 98 Oxygen Delivery Method Room Air 08/28/24 13:36 08/28/24 14:58 Temperature 98 F Temperature Source Pulse Rate 78 78 Respiratory Rate 18 Respiratory Effort Respiratory Pattern Blood Pressure 112/78 112/78 Blood Pressure Mean 89 89 Pulse Ox 100 100 Oxygen Delivery Method Positive well nourished and well developed General Appearance ED: well developed HEENT normocephalic and atraumatic Eyes General Eye ED: Yes normal appearance of both eyes Neck full ROM Resp normal respiratory effort and normal air movement Cardio regular rate and regular rhythm GI soft to palpation GI Narrative: Laparoscopic incisions clean, dry, intact. Noted right lower quadrant dressing mild ecchymosis around the area, no hematoma palpated. Extremity normal to inspection and full ROM Neuro oriented x3 Skin no rashes or lesions noted and no wounds MDM MDM MDM Narrative Medical decision making narrative: Interventions / MDM: Differential diagnosis: Postop pain, status post bilateral salpingectomy, right oophorectomy, left cystectomy. Rectus sheath hematoma Diagnosis considered but do not suspect: N/A My EKG interpretation: N/A Imaging independently reviewed and interpreted by myself: CT abdomen pelvis IV contrast: R hypodense lesions subcutaneous tissue right lower abdomen measuring 10 x 5 cm, per radiology seroma possible abscess. CT per radiology possible seroma versus abscess. External documents reviewed: N/A Test considered but not ordered:N/A ED course: Vital stable, worsening postop pain sent here by her cras she had complicated postop abdominal hematoma that was stabilized at same night. Reports pain is lower than the area of her hematoma. IV established for labs, morphine Zofran fluids will check CT abdomen pelvis with IV contrast. 1420: Multiple reevaluations stable pain was controlled after 1 dose of pain medicines. Hemoglobin 11.5 it was 12 2 days ago. White count 6.0. However known rectus sheath hematoma From 3 days ago. 3 days postop no fevers normal white count less likely abscess. I discussed with covering cras Dr. Valdivia, discussed patient's findings. She is aware of the patient. She also states she is on Lovenox daily as she had a postop PE in 2005. Patient confirms this. She states with pain controlled vital stable hemoglobin stable she will order an outpatient 3 CT on Saturday. We discussed tricked return precautions with the patient. She understands. She will have light activities over the weekend. She will continue her pain medicines as prescribed. All questions were answered. Re-evaluation: stable Disposition discussed with patient/family/significant other: Patient Case discussed with consulting clinician: Gynecology This note was generated with [employer] dictation software. It may contain incorrect words, spelling, and punctuation that were not noted in checking the note before signing. Lab Data Attestation: I reviewed the patient's lab results. Labs: Laboratory Results - last 24 hr 08/28/24 11:57 WBC 6.0 RBC 3.62 L Hgb 11.5 L Hct 34.4 L MCV 95.0 MCH 31.8 MCHC 33.4 RDW Std Deviation 46.3 H RDW Coeff of Angel 13.1 Plt Count 219 MPV 9.8 Immature Gran % (Auto) 0.300 Neut % (Auto) 57.2 Lymph % (Auto) 33.3 [place] % (Auto) 7.8 Eos % (Auto) 1.2 Baso % (Auto) 0.2 Absolute Neuts (auto) 3.4 Absolute Lymphs (auto) 2.00 Nucleated RBC % 0 Sodium 140 Potassium 3.6 Chloride 103 Carbon Dioxide 27.8 Anion Gap 9 BUN 9 Creatinine 0.74 Estim Creat Clear Calc 79.41 Est GFR (MDRD) Non-Af 99 BUN/Creatinine Ratio 12.7 Glucose 86 Calcium 9.0 Radiography Diagnostic Testing: Clinical Impression(s) from Imaging Studies Abdomen/Pelvis CT 08/28/24 11:51 IMPRESSION: 1. Normal appendix. 2. Subcutaneous soft tissue swelling of the lateral right abdomen and right lower abdominal quadrant. Hypodense lesion of the subcutaneous tissues of the anterior right lower abdomen measuring up to 10.3 x 5.6 cm. This could be a seroma related to recent surgery. Evolving abscess can not be entirely excluded time of surgery. Pneumoperitoneum, likely postoperative changes. 3. Fecal retention in the colon consistent with constipation. Reading Location: [facility] Discharge Plan Triage Chief Complaint: Other, Pain/Inj ED Provider: Rik Marshall Dx/Rx/DC Orders Clinical Impression: Post-op pain, Rectus sheath hematoma Instructions: ED Hematoma, ED Post Op Wound Check, Pain Prescriptions: No Action cyclobenzaprine 10 mg tablet 10 mg PO TID PRN (Reason: muscle spasm) Qty: 30 2RF clonazepam 0.5 mg tablet 0.5 mg PO QHS PRN (Reason: anxiety) Patient Comments: PT TAKES AT BEDTIME AND ROUTINELY aripiprazole 20 mg tablet 20 mg PO DAILY naproxen 500 mg tablet 500 mg PO BID PRN (Reason: Pain) enoxaparin [Lovenox] 40 mg/0.4 mL syringe 40 mg SQ DAILY 14 Days Qty: 20 1RF oxycodone-acetaminophen [Percocet] 5-325 mg tablet 1 tab PO Q4H PRN (Reason: pain) 7 Days Qty: 20 0RF Primary Care Provider: Care Physician,No Primary Referrals: Treasure Goldstein MD [Med Staff - Active Staff] - 5-7 Days Care Physician,No Primary [Primary Care Provider] - Activity Restrictions/Additional Instructions: CT scan with noted rectus sheath hematoma right side. You had this postop 3 days ago. Hemoglobin 11.[address] Valdivia. She will plan to recommence you on Saturday. Continue your Lovenox to prevent PEs. Continue your pain medicines as prescribed. If you develop any worsening symptoms not controlled with medications, return to the ED for reevaluation. Print Language: Bulgarian Disposition Disposition: Home, Self Care Discharge Date/Time: 08/28/24 14:58
[2024-08-28] MEDS: 0.9% Normal Saline (500mL Bag) 500 ML 999 ML IV (12:01)
[2024-08-28] MEDS: Ondansetron 4 MG/2 ML Vial IV (12:01)
[2024-08-28] MEDS: Morphine 4 MG/ML Syringe IV (12:01)
[2024-08-28 12:06] VITALS: BP 128/78; PULSE 78; RESP 16; TEMP 37; O2SAT 98
[2024-08-28 12:25] LABS: Absolute Neutrophil Count 3.4 X10^3/uL (2.0-7.7); Anion Gap 9 (5-15); BUN 9 mg/dL (4-19); BUN/Creat Ratio 12.7 RATIO (10-20); Basophil# 0.01 X10^3/uL; Basophil% 0.2 % (0-1); Carbon Dioxide 27.8 mmol/L (21.0-32.0); Chloride 103 mmol/L (98-108); Creatinine, Serum 0.74 mg/dL (0.70-1.20); EST Glomerular Filtration Rate 99 (>60); Eosinophil# 0.07 X10^3/uL; Eosinophils% 1.2 % (0-5); Estimated Creatinine Clearance 79.41 ml/min (50-250); Glucose 86 mg/dL (70-99); Hematocrit 34.4 % (37-47); Hemoglobin 11.5 g/dL (12.0-15.0); Lymphocyte % 33.3 % (19-41); Mean Corp Hgb Conc 33.4 g/dL (32-36); Mean Corpuscular Hgb 31.8 pg (27.0-32.0); Mean Platelet Vol. 9.8 fl (6.2-12.0); Monocyte# 0.47 X10^3/uL; Monocyte% 7.8 % (0-10); NRBC Flagged by Analyzer 0 % (0-5); Neutrophil # 3.43 X10^3/uL (2.7-7.7); Neutrophil % 57.2 % (47-70); Platelet Count 219 K/mm3 (150-450); Potassium 3.6 mmol/L (3.3-5.1); RBC Distribution Width CV 13.1 % (11.6-14.6); RBC Distribution Width SD 46.3 fl (35.1-43.9); Red Blood Count 3.62 M/mm3 (4.2-5.4); Sodium Level 140 mmol/L (133-145)
[2024-08-28 13:36] VITALS: BP 112/78; PULSE 78; O2SAT 100
[2024-08-28 14:58] VITALS: BP 112/78; PULSE 78; RESP 18; TEMP 36.6; O2SAT 100
== END 2024-08-28 14:58 | disposition home or self-care (01) ==
PROVIDERS: Emergency Provider Emergency Medicine; Visit Provider Emergency Medicine
DX: M96.841 Postprocedural hematoma of a musculoskeletal structure following other procedure (principal); M79.81 Nontraumatic hematoma of soft tissue; Y83.6 Removal of other organ (partial) (total) as the cause of abnormal reaction of the patient, or of later complication, without mention of misadventure at the time of the procedure; G89.18 Other acute postprocedural pain; F17.210 Nicotine dependence, cigarettes, uncomplicated; F17.290 Nicotine dependence, other tobacco product, uncomplicated
CPT/HCPCS: 74177; 80048; 85025; 96361; 96374; 96375; 99282; Q9967; A4216; J2405

== ENCOUNTER 2024-08-30 11:07 | Emergency (ER) | payer MEDICAID, SELFPAY ==
[2024-08-30 11:07] VITALS: BP 122/74; PULSE 82; RESP 19; TEMP 36.4; O2SAT 99; BMI 22.6
--- NOTE | 2024-08-30 11:59 | ED.VIS.GI ---
HPI HPI - GI History of Present Illness Chief Complaint: Abd Pain Informant: patient Narrative Narrative: Patient is a 49-year-old female with recent right oophorectomy (performed on 08/25/2024 (with postoperative course complicated by abdominal wall hematoma and subsequently pain control. She is presenting with continued pain in her right lower abdomen is not controlled with her home oxycodone and naproxen. She states that medicine is not touching her pain. Patient is on prophylactic Lovenox at home because of history of postoperative PE/VTE. In addition patient states that she continues to have the pain but it does not sound like it is particularly worsening but she cannot get it under control. She states she is been very emotional and crying a lot and she is not sure if that has to do with an ovary being removed. Of note she still has her left ovary. She also not had a bowel movement for the past 5 days. She is passing gas and is taking MiraLAX daily. She was seen in our ER 2 days ago for postoperative pain complaints as well. States the pain is worse in her right pelvis area. She denies any urinary symptoms states she is actually urinating every 2 hours. She denies any fever or chills. Denies any chest pain or shortness of breath. She was having right shoulder pain which she attributes to air in her abdomen but notes that has resolved. Review of ER visit from 08/28? With identical presentation. Vital signs normal/stable. CT of the abdomen and pelvis with IV contrast obtained which showed a right hypodense lesion in the subcutaneous tissue of the right lower abdomen measuring 10 x 5 cm?seroma versus abscess per radiology. Given no infectious symptoms and known postoperative hematoma felt to be seroma/hematoma and not abscess clinically. Hemoglobin stable. No leukocytosis. Case was discussed with PIE BAKERY LABORER. Plan for outpatient follow-up this coming Saturday. Discharged home. [facility] Medical History Wears glasses MRSA infection Bipolar disorder Marijuana use Arthritis Bladder disease Pulmonary embolism Migraine headache Loose, teeth Smoker Interstitial cystitis Irritable bowel syndrome History of pulmonary embolism Anxiety Home Medications ?Medication ?Instructions ?Recorded ?Last Taken ?Type aripiprazole 20 mg tablet 20 mg PO DAILY 06/04/24 08/30/24 History clonazepam 0.5 mg tablet 0.5 mg PO QHS PRN anxiety 06/04/24 08/30/24 History cyclobenzaprine 10 mg tablet 10 mg PO TID PRN muscle spasm #30 07/15/24 08/09/24 Rx tabs enoxaparin 40 mg/0.4 mL 40 mg (0.4 mL) SQ DAILY 14 days 08/25/24 08/29/24 Rx subcutaneous syringe (Lovenox) #20 mL oxycodone-acetaminophen 5 mg-325 1 tab PO Q4H PRN pain 7 days #20 08/25/24 08/30/24 Rx mg tablet (Percocet) tabs naproxen 500 mg tablet 500 mg PO BID PRN Pain 08/28/24 08/30/24 History oxycodone 5 mg tablet 5 mg PO Q6H 3 days #12 tabs 08/30/24 Unknown Rx Allergy/AdvReac Type Severity Reaction Status Date / Time metronidazole (From Flagyl) Allergy Severe Anaphylaxis Verified 08/30/24 11:07 Family History Grandmother Ovarian cancer, Onset Age: 69 Aunt Breast cancer, Onset Age: 45 Surgical History Status post bilateral salpingectomy History of ovarian cystectomy S/P right oophorectomy History of endometrial ablation Hx of tubal ligation History of back surgery H/O: hysterectomy Social History household members: spouse housing: house number of children: 3 current occupational status: employed current occupation: [employer] Smoking Status: Current every day smoker tobacco type: cigarettes and e-cigarettes do you feel safe at home: Yes additional social history: Boyfriend - Terence KNUTSON ROS ED Constitutional Constitutional ED: Denies chills or fever(s) Cardiovascular Cardiovascular: Denies chest pain Respiratory/Chest Respiratory/Chest: Denies cough or dyspnea Gastrointestinal Gastrointestinal: Reports abdominal pain and constipation; Denies nausea or vomiting Musculoskeletal Musculoskeletal: Denies arthralgias or myalgias Integumentary Reports other Details: Bruising around port sites on abdomen?no other skin changes reported. No drainage from surgical incisions per patient. Neurologic Neurologic: Denies weakness Psychiatric Psychiatric: Reports anxiety Hematologic/Lymphatic Hematologic/Lymphatic: Reports other Details: On Lovenox because of history of postoperative VTE EXAM Physical Exam Const Vital Signs: 08/30/24 11:07 08/30/24 13:07 08/30/24 15:43 Temperature 97.5 F L Temperature Source Temporal Pulse Rate 82 78 78 Respiratory Rate 19 H 16 16 Blood Pressure 122/74 H 129/78 H 118/59 L Blood Pressure Mean 90 95 78 Pulse Ox 99 99 Oxygen Delivery Method Room Air Room Air 08/30/24 17:52 Temperature 98.1 F Temperature Source Pulse Rate 78 Respiratory Rate 16 Blood Pressure 118/59 L Blood Pressure Mean 78 Pulse Ox 99 Oxygen Delivery Method Positive well nourished and well developed General Appearance ED: well developed and NAD HEENT Reports moist mucous membranes normocephalic Eyes PERRL General Eye ED: Negative for pale conjunctiva Resp normal respiratory effort and clear to auscultation bilaterally Cardio regular rate and regular rhythm GI non-distended GI Narrative: Tenderness to palpation around port sites?most pronounced in the right lower quadrant port. Also some tenderness in the low right pelvis on palpation. No palpable hematoma or mass appreciated. No abdominal wall crepitus or fluctuance. Auscultation: hypoactive bowel sounds Palpation: soft and tender RLQ Back/Spine no CVA tenderness Extremity full ROM Neuro moves all extremities Sensorium / Orientation: alert Motor Exam: Negative for general weakness Psych thought process normal Mood & Affect: anxious and tearful Skin Skin Narrative: Surgical laparoscopic incisions?well-approximated with no surrounding erythema or drainage. There is some mild surrounding ecchymosis most pronounced in the right lower quadrant. MDM MDM MDM Narrative Medical decision making narrative: Patient evaluated for postoperative abdominal pain. This is her second ER visit. She did have recent laparoscopic right oophorectomy that was complicated by an abdominal wall hematoma. Given that she had a CT of her abdomen pelvis 2 days ago will recheck labs before immediately ordering repeat imaging. In addition patient lives home alone and does not have a lot of assistance. She describes the pain as more of a pinching/pulling and I wonder if she is having poorly controlled postoperative pain because she does not have enough assistance at home. Differential includes postoperative pain, postoperative infection, worsening postoperative hematoma. Will check a CBC to monitor hemoglobin as well as look for leukocytosis. Will check BMP to look for any type of DILLON or electrolyte abnormality. Will obtain urinalysis to make sure she does not have signs of urinary tract infection. Patient given 4 mg IV morphine as well as 4 mg IV Zofran for symptom control. She appears well-hydrated do not think requires IV fluids right now. Lab work largely normal. Hemoglobin is stable at 11.8 (was 11.5 two days ago). No leukocytosis to suggest infection. Patient continues to get more anxious and crying. Was given 1 mg IV Haldol with improvement of this. She however continues to complain of worsening pain/every time she tries to ambulate. I spoke with Dr. Mart who is covering for [facility]. He would recommend repeating the CT of the pelvis to make sure that the hematoma is not expanding. States that she likely just needs better pain control with home medication. Does not think admission for pain control would be overly helpful. I do think this is a reasonable plan. I did speak with the patient and she states that she is running low on her oxycodone so she has been splitting it in half. Dr. Cosme was comfortable with me prescribing her further prescription for her pain medication. She is given her home oxycodone with further improvement of her symptoms. CT of the pelvis shows right lower quadrant skin wound with no significant change. Postoperative fluid or seroma with pockets of fluid deep in the pelvis present. Physical exam is still not consistent with abscess and based on labs I think this is likely her postoperative hematoma not infectious in origin. I do not think anything is amenable to drainage based on physical exam. Patient we discharged home. Tolerates p.o. challenge. Given return precautions will continue to follow-up with her P[facility]AK[facility] LABORER. Lab Data Attestation: I reviewed the patient's lab results. Labs: Laboratory Results - last 24 hr 08/30/24 12:22 WBC 7.5 RBC 3.60 L Hgb 11.8 L Hct 33.5 L MCV 93.1 MCH 32.8 H MCHC 35.2 D RDW Std Deviation 44.6 H RDW Coeff of Angel 13.0 Plt Count 249 MPV 10.0 Immature Gran % (Auto) 0.300 Neut % (Auto) 73.4 H Lymph % (Auto) 17.4 L [place] % (Auto) 6.7 Eos % (Auto) 1.9 Baso % (Auto) 0.3 Absolute Neuts (auto) 5.5 Absolute Lymphs (auto) 1.30 Nucleated RBC % 0 Sodium 140 Potassium 4.3 Chloride 105 Carbon Dioxide 25.8 Anion Gap 9 BUN 10 Creatinine 0.76 Estim Creat Clear Calc 77.32 Est GFR (MDRD) Non-Af 96 BUN/Creatinine Ratio 12.6 Glucose 87 Calcium 8.9 Urine Color Yellow Urine Clarity Sl. Cloudy Urine pH 8.0 Ur Specific Viola 1.010 Urine Protein 15 H Urine Glucose (UA) Normal Urine Ketones Negative Urine Occult Blood Negative Urine Nitrite Negative Urine Bilirubin Negative Urine Urobilinogen Normal Ur Leukocyte Esterase 25 H Urine RBC 0 SEEN Urine WBC 0-5 SEEN Ur Squamous Epith Cells 5-10 SEEN Urine Bacteria 1+ Urine Mucus 0 SEEN Urine Trichomonas 0-5 SEEN Radiography Diagnostic Testing: Clinical Impression(s) from Imaging Studies Pelvis CT 08/30/24 15:47 IMPRESSION: Right lower quadrant skin wound, not significantly changed from August 28. If there is concern for abscess based on pain and redness consider aspiration for culture and sensitivity Postoperative fluid or seroma with pockets of fluid deep in the pelvis Reading Location: [facility]- Management Discussion w/another healthcare provider: Residential Worker Discharge Plan Triage Chief Complaint: Abd Pain ED Provider: Love Emery Dx/Rx/DC Orders Clinical Impression: Post-op pain, Rectus sheath hematoma, S/P right oophorectomy Instructions: ED Post Op Wound Check, Pain Prescriptions: New oxycodone 5 mg tablet 5 mg PO Q6H 3 Days Qty: 12 0RF No Action cyclobenzaprine 10 mg tablet 10 mg PO TID PRN (Reason: muscle spasm) Qty: 30 2RF clonazepam 0.5 mg tablet 0.5 mg PO QHS PRN (Reason: anxiety) Patient Comments: PT TAKES AT BEDTIME AND ROUTINELY aripiprazole 20 mg tablet 20 mg PO DAILY naproxen 500 mg tablet 500 mg PO BID PRN (Reason: Pain) enoxaparin [Lovenox] 40 mg/0.4 mL syringe 40 mg SQ DAILY 14 Days Qty: 20 1RF Patient Comments: PT DOES AT NIGHT oxycodone-acetaminophen [Percocet] 5-325 mg tablet 1 tab PO Q4H PRN (Reason: pain) 7 Days Qty: 20 0RF Primary Care Provider: Care Physician,No Primary Referrals: Treasure Goldstein MD [Med Staff - Active Staff] - Care Physician,No Primary [Primary Care Provider] - Activity Restrictions/Additional Instructions: Your lab work is stable. You have been given another prescription for further pain medication for further control. Please continue to follow-up with your PIE BAKERY LABORER as scheduled. Your CT also appears stable with no progression of fluid collection/hematoma. No signs of any other complication. Wear abdominal binder and splint your abdomen as we discussed in the ER.Take senna as needed for constipation if you are not starting to have bowel movements despite being on MiraLAX. Print Language: Thai Disposition Disposition: Home, Self Care Discharge Date/Time: 08/30/24 17:30
--- NOTE | 2024-08-30 12:15 | CM.ED ---
Social Work: Date of referral: 08/30/24 Reason for referral: No PCP on file Referred by: Social Work identification Patient provided consent to social work visit. Data Integration Architect provided patient with written handout for the [facility] for PCP resource which patient stated she has been to before. Patient stated she may have a PCP and just not know who it is. No additional needs/follow up requested at this time. Moriah Velázquez, SINKER WINDER, LACQUER PIN PRESS OPERATOR
[2024-08-30] MEDS: Morphine 4 MG/ML Syringe IV (12:24)
[2024-08-30] MEDS: Ondansetron 4 MG/2 ML Vial IV (12:24)
[2024-08-30 12:29] LABS: Mucous, Urine 0 SEEN /hpf (<or=2+); Red Blood Cells-Urine 0 SEEN /hpf (0-5)
[2024-08-30 12:30] LABS: Absolute Neutrophil Count 5.5 X10^3/uL (2.0-7.7); Basophil# 0.02 X10^3/uL; Basophil% 0.3 % (0-1); Eosinophil# 0.14 X10^3/uL; Eosinophils% 1.9 % (0-5); Hematocrit 33.5 % (37-47); Hemoglobin 11.8 g/dL (12.0-15.0); Lymphocyte % 17.4 % (19-41); Mean Corp Hgb Conc 35.2 g/dL (32-36); Mean Corpuscular Hgb 32.8 pg (27.0-32.0); Mean Corpuscular Volume 93.1 fL (81-99); Monocyte% 6.7 % (0-10); NRBC Flagged by Analyzer 0 % (0-5); Neutrophil # 5.49 X10^3/uL (2.7-7.7); Neutrophil % 73.4 % (47-70); Platelet Count 249 K/mm3 (150-450); RBC Distribution Width SD 44.6 fl (35.1-43.9); White Blood Count 7.5 K/mm3 (4.4-11.0)
[2024-08-30 12:41] LABS: Color, Urine Yellow (Yellow); Glucose, Dipstick Normal (Normal); Ketone-Dipstick Negative (Negative); Leukocyte Esterase-Dipstick 25 /ul (Negative); Nitrite-Dipstick Negative (Negative); Occult Blood-Urine Negative /ul (Negative); Protein-Dipstick 15 mg/dl (Negative); Urine Bilirubin Dipstick Negative (Negative); Urine Clarity Sl. Cloudy (Clear); Urine Urobilinogen Normal (Normal)
[2024-08-30 12:50] LABS: Bacteria 1+ /hpf (None Seen); Squamous Epithelial Cells - UA 5-10 SEEN /hpf (5-10); White Blood Cells 0-5 SEEN /hpf (0-5)
[2024-08-30 12:51] LABS: Trichomonas 0-5 SEEN /hpf (None Seen)
[2024-08-30] MEDS: Haloperidol Lactate 5 MG/ML Vial 1 MG IV (13:03)
[2024-08-30 13:07] VITALS: BP 129/78; PULSE 78; RESP 16
[2024-08-30 13:20] LABS: Anion Gap 9 (5-15); BUN 10 mg/dL (4-19); BUN/Creat Ratio 12.6 RATIO (10-20); Calcium,Total 8.9 mg/dL (7.6-11.0); Carbon Dioxide 25.8 mmol/L (21.0-32.0); Chloride 105 mmol/L (98-108); Creatinine, Serum 0.76 mg/dL (0.70-1.20); EST Glomerular Filtration Rate 96 (>60); Estimated Creatinine Clearance 77.32 ml/min (50-250); Glucose 87 mg/dL (70-99); Potassium 4.3 mmol/L (3.3-5.1); Sodium Level 140 mmol/L (133-145)
[2024-08-30 15:43] VITALS: BP 118/59; PULSE 78; RESP 16; O2SAT 99
--- NOTE | 2024-08-30 15:47 | CT_ITS ---
PROCEDURE: PELVIS WITH IV CONTRAST REASON FOR EXAM: PAIN, ABD WALL HEMATOMA. Postop oophorectomy on 08/2024 history also includes hysterectomy and salpingo oophorectomy ovarian cystectomy but does not say exactly in fall this was done on 08 25 2024 . TECHNIQUE: Pelvis CT with intravenous contrast. CONTRAST: Isovue 370 VOLUME: 87 mL IV One or more dose reduction techniques were used (e.g., Automated exposure control, adjustment of the mA and/or kV according to patient size, use of iterative reconstruction technique). RADIATION DOSE SUMMARY: CTDlvol: 24.64 mGy DLP: 855.31 mGycm COMPARISON: 2024 and others FINDINGS: Limited inclusion of liver, spleen, gallbladder and kidneys. Simple cysts right kidney requiring no follow-up. Otherwise no significant findings. Bladder: Unremarkable Reproductive Organs: Status post hysterectomy. Pockets of free fluid deep in the pelvis and cul-de-sac and presacral spaces Bowel: Unremarkable. Appendix: A normal appendix is identified. Lymph nodes: No lymph nodes are identified that might be considered pathologic by size criteria Vasculature: Unremarkable. Peritoneum / Retroperitoneum: Postoperative fluid or seroma the pelvis Subcutaneous soft tissue swelling of the lateral right abdomen and right lower abdominal quadrant. Hypodense lesion of the subcutaneous tissues of the anterior right lower abdomen measuring up to 10.3 x 5.6 cm. This could be a seroma related to recent surgery. Evolving abscess cannot be entirely excluded due to time of surgery. Pneumoperitoneum, likely postoperative changes. Bones: No aggressive bone lesions CT/Pelvis WITH IV Contrast IMPRESSION: Right lower quadrant skin wound, not significantly changed from August 28. If the re is concern for abscess based on pain and redness consider aspiration for culture and sensitivity Postoperative fluid or seroma with pockets of fluid deep in the pelvis Reading [facility]
[2024-08-30] MEDS: Acetaminophen 325 MG Tablet 650 MG PO (16:19)
[2024-08-30] MEDS: oxyCODONE 5 MG Tablet PO (16:19)
[2024-08-30 17:52] VITALS: BP 118/59; PULSE 78; RESP 16; TEMP 36.7; O2SAT 99
== END 2024-08-30 17:30 | disposition home or self-care (01) ==
PROVIDERS: Emergency Provider Emergency Medicine; Visit Provider Emergency Medicine
DX: G89.18 Other acute postprocedural pain (principal); L76.32 Postprocedural hematoma of skin and subcutaneous tissue following other procedure; F17.210 Nicotine dependence, cigarettes, uncomplicated; M25.511 Pain in right shoulder; Z90.721 Acquired absence of ovaries, unilateral; Z98.890 Other specified postprocedural states; S30.1XXA Contusion of abdominal wall, initial encounter; Z79.01 Long term (current) use of anticoagulants; Z79.899 Other long term (current) drug therapy; F17.290 Nicotine dependence, other tobacco product, uncomplicated; F41.9 Anxiety disorder, unspecified; R10.31 Right lower quadrant pain
CPT/HCPCS: 72193; 80048; 81001; 85025; 96374; 96375; 99285; Q9967; A4216; J2405

== ENCOUNTER 2024-09-18 13:07 | Emergency (ER) | payer MEDICAID, SELFPAY ==
[2024-09-18 13:07] VITALS: BP 97/62; PULSE 90; RESP 18; TEMP 36.6; O2SAT 98; BMI 19.9
[2024-09-18] MEDS: cycloBENZAPRine HCl 10 MG Tablet PO (14:04)
[2024-09-18] MEDS: Acetaminophen 325 MG Tablet 650 MG PO (14:04)
[2024-09-18 15:07] VITALS: BP 96/58; PULSE 82; RESP 16; O2SAT 98
--- NOTE | 2024-09-18 15:41 | ED.VIS.FEGU ---
HPI HPI - Female History of Present Illness Chief Complaint: Female C/O Informant: patient Narrative Narrative: Patient is a 49-year-old female with history of bipolar disorder, PE, anxiety, IBS, migraines as well as right oophorectomy approximately 6 weeks ago. Patient states she was picking up a heavy bag of trash when she suddenly felt a spasm in her vaginal area. This happened around 1230. She denies any feeling of bulging or fullness. Is not recently had any issues with defecation or urination. Came in for further evaluation. PFSH PFSH Medical History Wears glasses MRSA infection Bipolar disorder Marijuana use Arthritis Bladder disease Pulmonary embolism Migraine headache Loose, teeth Smoker Interstitial cystitis Irritable bowel syndrome History of pulmonary embolism Anxiety Home Medications ?Medication ?Instructions ?Recorded ?Last Taken ?Type aripiprazole 20 mg tablet 20 mg PO DAILY 06/04/24 08/30/24 History clonazepam 0.5 mg tablet 0.5 mg PO QHS PRN anxiety 06/04/24 08/30/24 History cyclobenzaprine 10 mg tablet 10 mg PO TID PRN muscle spasm #30 07/15/24 08/09/24 Rx tabs diazepam 2 mg tablet (Valium) 2 mg PO BID PRN muscle spasm #14 09/03/24 Unknown Rx tabs ibuprofen 400 mg tablet 400 mg PO Q8H 09/10/24 Unknown History oxycodone-acetaminophen 5 mg-325 1 tab PO Q4H PRN 09/10/24 Unknown History mg tablet (Percocet) Allergy/AdvReac Type Severity Reaction Status Date / Time metronidazole (From Flag) Allergy Severe Anaphylaxis Verified 09/18/24 13:09 naproxen AdvReac Mild Nausea Verified 09/18/24 13:09 Family History Grandmother Ovarian cancer, Onset Age: 69 Aunt Breast cancer, Onset Age: 45 Surgical History Status post bilateral salpingectomy History of ovarian cystectomy S/P right oophorectomy History of endometrial ablation Hx of tubal ligation History of back surgery H/O: hysterectomy Social History household members: spouse housing: house number of children: 3 current occupational status: employed current occupation: [employer] Smoking Status: Current every day smoker tobacco type: cigarettes and e-cigarettes do you feel safe at home: Yes additional social history: Boyfriend - Terence KNUTSON ROS ED Constitutional Constitutional ED: Denies chills or fever(s) Respiratory/Chest Respiratory/Chest: Denies cough Gastrointestinal Gastrointestinal: Denies nausea or vomiting Musculoskeletal Musculoskeletal: Denies arthralgias or myalgias Psychiatric Psychiatric: Reports anxiety EXAM Physical Exam Const Vital Signs: 09/18/24 13:07 Temperature 97.8 F Temperature Source Oral Pulse Rate 90 Respiratory Rate 18 Blood Pressure 97/62 Blood Pressure Mean 73 Pulse Ox 98 Oxygen Delivery Method Room Air Positive well nourished and well developed General Appearance ED: well developed and NAD HEENT Reports moist mucous membranes Chest Wall inspection of chest normal Resp normal respiratory effort and clear to auscultation bilaterally Cardio regular rate and regular rhythm GI normal to inspection, nondistended, normoactive bowel sounds, soft to palpation and non-tender GI Narrative: No hernias appreciated. Narrative: Chaperoned pelvic exam performed. Normal external genitalia. Normal internal pelvic exam. Physiologic white discharge present. Normal-appearing cervix. No cervical motion tenderness present. On coughing no prolapse appreciated. No blood present. Extremity normal to inspection Psych mental status grossly normal Skin no rashes or lesions noted MDM MDM MDM Narrative Medical decision making narrative: Patient evaluated for sudden onset of spasm-like pain in her vagina after picking up a heavy bag. She had recent laparoscopic salpingectomy/oophorectomy and is concerned this could be related. Patient is quite well-appearing on exam. Vital signs are normal. She has a benign physical exam including abdominal exam and pelvic exam. I do not appreciate any hernia. She does not have any continued pain. She is given a dose of Flexeril and Tylenol in the ER for her symptoms. Discharge Plan Triage Chief Complaint: Female C/O ED Provider: Love Emery Dx/Rx/DC Orders Clinical Impression: Pelvic pain Instructions: ED Pelvic Pain, Unknown Cause Prescriptions: No Action cyclobenzaprine 10 mg tablet 10 mg PO TID PRN (Reason: muscle spasm) Qty: 30 2RF oxycodone-acetaminophen [Percocet] 5-325 mg tablet 1 tab PO Q4H PRN ibuprofen 400 mg tablet 400 mg PO Q8H diazepam [Valium] 2 mg tablet 2 mg PO BID PRN (Reason: muscle spasm) Qty: 14 0RF Rx Instructions: do not take within 4 hours of the percocet clonazepam 0.5 mg tablet 0.5 mg PO QHS PRN (Reason: anxiety) Patient Comments: PT TAKES AT BEDTIME AND ROUTINELY aripiprazole 20 mg tablet 20 mg PO DAILY Stand Alone Forms: ED Work / School Excuse Primary Care Provider: [facility] Referrals: Moriah Mcdonough DO [Med Staff - Active Staff] - [facility] [Primary Care Provider] - Activity Restrictions/Additional Instructions: Your physical exam is normal today. It is unlikely that there is any complication associated with your recent surgery. Print Language: Jordanian Disposition Disposition: Home, Self Care
[2024-09-18 16:10] VITALS: BP 100/65; PULSE 98; RESP 14; TEMP 36.4; O2SAT 99
== END 2024-09-18 16:10 | disposition home or self-care (01) ==
PROVIDERS: Emergency Provider Emergency Medicine; Visit Provider Emergency Medicine
DX: R10.2 Pelvic and perineal pain (principal); F31.9 Bipolar disorder, unspecified; F17.210 Nicotine dependence, cigarettes, uncomplicated; Z90.710 Acquired absence of both cervix and uterus; F41.9 Anxiety disorder, unspecified; Z98.51 Tubal ligation status; Z86.711 Personal history of pulmonary embolism; Z90.721 Acquired absence of ovaries, unilateral
CPT/HCPCS: 99282

== ENCOUNTER 2025-01-22 23:42 | Emergency (ER) | payer MEDICAID, SELFPAY ==
[2025-01-22 23:43] VITALS: BP 131/59; PULSE 68; RESP 16; TEMP 36.7; O2SAT 100; BMI 21.2
--- NOTE | 2025-01-23 00:14 | EX.ED.DYSGE1 ---
HPI History of Present Illness Chief Complaint: Dental Informant: patient Narrative Narrative: Patient is a 49-year-old female with past medical history of anxiety and bipolar disorder. She states she noted pain in the right upper jaw without trauma and therefore went to an urgent care 2 to 3 days ago. She states that they told her she has a developing dental infection and placed on amoxicillin. She states has been taking the antibiotic as directed but now she has soft tissue swelling along the right cheek. She denies fevers or chills or difficulty breathing or swallowing but with worsening symptoms she presents to the ER for evaluation. [facility] Medical History Wears glasses MRSA infection Bipolar disorder Marijuana use Arthritis Bladder disease Pulmonary embolism Migraine headache Loose, teeth Smoker Interstitial cystitis Irritable bowel syndrome History of pulmonary embolism Anxiety Home Medications ?Medication ?Instructions ?Recorded ?Last Taken ?Type aripiprazole 20 mg tablet 20 mg PO DAILY 06/04/24 08/30/24 History clonazepam 0.5 mg tablet 0.5 mg PO QHS PRN anxiety 06/04/24 08/30/24 History cyclobenzaprine 10 mg tablet 10 mg PO TID PRN muscle spasm #30 07/15/24 08/09/24 Rx tabs diazepam 2 mg tablet (Valium) 2 mg PO BID PRN muscle spasm #14 09/03/24 Unknown Rx tabs ibuprofen 400 mg tablet 400 mg PO Q8H 09/10/24 Unknown History oxycodone-acetaminophen 5 mg-325 1 tab PO Q4H PRN 09/10/24 Unknown History mg tablet (Percocet) clindamycin HCl 300 mg capsule 300 mg PO 4X/DAY 10 days #40 caps 01/23/25 Unknown Rx (Cleocin HCl) oxycodone-acetaminophen 5 mg-325 1 tab PO Q6H PRN pain 3 days #12 01/23/25 Unknown Rx mg tablet (Percocet) tabs Allergy/AdvReac Type Severity Reaction Status Date / Time metronidazole (From Flagyl) Allergy Severe Anaphylaxis Verified 01/22/25 23:46 naproxen AdvReac Mild Nausea Verified 01/22/25 23:46 Family History Grandmother Ovarian cancer, Onset Age: 69 Aunt Breast cancer, Onset Age: 45 Surgical History Status post bilateral salpingectomy History of ovarian cystectomy S/P right oophorectomy History of endometrial ablation Hx of tubal ligation History of back surgery H/O: hysterectomy Social History household members: spouse housing: house number of children: 3 current occupational status: employed current occupation: [employer] Smoking Status: Current every day smoker tobacco type: cigarettes and e-cigarettes do you feel safe at home: Yes additional social history: Boyfriend - Terence KNUTSON ROS ED Constitutional Constitutional ED: Denies chills or fever(s) ENT ENT ED: Reports other Details: Positive facial swelling and dental pain ; Denies rhinorrhea or sore throat Cardiovascular Cardiovascular: Denies chest pain Respiratory/Chest Respiratory/Chest: Denies cough or dyspnea Gastrointestinal Gastrointestinal: Denies abdominal pain, diarrhea, nausea or vomiting Musculoskeletal Musculoskeletal: Denies neck pain Integumentary Reports other Details: Positive facial swelling ; Denies rash Neurologic Neurologic: Denies headache(s) Psychiatric Psychiatric: Reports anxiety Allergic/Immunologic Allergic/Immunologic ED: Denies mouth swelling or tongue swelling EXAM Physical Exam Const Vital Signs: 01/22/25 23:43 01/23/25 00:20 Temperature 98.0 F 98.0 F Temperature Source Oral Pulse Rate 68 69 Respiratory Rate 16 16 Blood Pressure 131/59 H 111/69 Blood Pressure Mean 83 83 Pulse Ox 100 100 Oxygen Delivery Method Room Air Positive well nourished and well developed General Appearance ED: well developed HEENT HEENT Narrative: Normocephalic atraumatic There is soft tissue swelling of the right cheek near the zygomatic arch. There is mild pain with palpation at this site without obvious induration or fluctuance or overlying erythema. Scattered dental caries are noted. There is an approximate 1 cm area of fluctuance along the right upper gingiva/gum near tooth #6 consistent with abscess. No active discharge/drainage present No signs of ANUG No airway edema or compromise noted. Eyes PERRL and EOMs intact bilaterally General Eye ED: Negative for scleral icterus Neck supple Neck Narrative: No brawny edema in the submental space to suggest Anderson's angina Positive anterior cervical lymphadenopathy present Resp normal respiratory effort and clear to auscultation bilaterally Cardio regular rate and regular rhythm Extremity normal to inspection Neuro oriented x3, CN's II-XII intact bilaterally and no sensory deficits noted Sensorium / Orientation: alert Motor Exam: strength 5/5 throughout Psych Mood & Affect: anxious Skin Skin Narrative: Soft tissue swelling to the right cheek as documented above consistent with dental abscess MDM MDM MDM Narrative Medical decision making narrative: Patient presented with stable vitals. Her history and exam show a developing dental abscess. She does not have signs of ANUG or Anderson's angina. There is no sign of airway edema or compromise and vital signs do not suggest sepsis. Therefore this time I do not feel the need for imaging or laboratory studies. I discussed with patient the need to perform an incision and drainage as this is the treatment of choice for an abscess. She states that her anxiety is extremely high at this time and she does not want me to perform any type of procedure/intervention. Therefore she was advised to use warm compresses and salt water gargles in the hopes of getting the abscess to rupture spontaneously. As the abscess has formed despite her taking amoxicillin I will have her stop that drug and begin taking clindamycin for hopefully improved infection coverage. Without signs of sepsis airway compromise or Anderson's angina or ANUG there is no need for further workup. The patient states she understands that she still may require incision and drainage either by the ER or the dentist if change in treatment does not lead to spontaneous rupture of the abscess. History & Record Review Discussion w/independent historian: Patient Discharge Plan Triage Chief Complaint: Dental ED Provider: Lucius Campbell Dx/Rx/DC Orders Clinical Impression: Dental abscess, Anxiety, Bipolar disorder Instructions: Dental Abscess Prescriptions: New oxycodone-acetaminophen [Percocet] 5-325 mg tablet 1 tab PO Q6H PRN (Reason: pain) 3 Days Qty: 12 0RF clindamycin HCl [Cleocin HCl] 300 mg capsule 300 mg PO 4X/DAY 10 Days Qty: 40 0RF No Action cyclobenzaprine 10 mg tablet 10 mg PO TID PRN (Reason: muscle spasm) Qty: 30 2RF oxycodone-acetaminophen [Percocet] 5-325 mg tablet 1 tab PO Q4H PRN ibuprofen 400 mg tablet 400 mg PO Q8H diazepam [Valium] 2 mg tablet 2 mg PO BID PRN (Reason: muscle spasm) Qty: 14 0RF Rx Instructions: do not take within 4 hours of the percocet clonazepam 0.5 mg tablet 0.5 mg PO QHS PRN (Reason: anxiety) Patient Comments: PT TAKES AT BEDTIME AND ROUTINELY aripiprazole 20 mg tablet 20 mg PO DAILY Primary Care Provider: [facility] Vanda Purdy Referrals: [facility] Vanda Purdy [Primary Care Provider, Medical] Activity Restrictions/Additional Instructions: Please stop the amoxicillin and begin taking the clindamycin for broader infection coverage. Continue with salt water gargles and warm compresses as this may cause a spontaneous drainage of the abscess. If your symptoms are not improving you may need to see the dentist or return to the ER for incision and drainage. Print Language: Lao Disposition Disposition: Home, Self Care Discharge Date/Time: 01/23/25 00:23
[2025-01-23 00:20] VITALS: BP 111/69; PULSE 69; RESP 16; TEMP 36.7; O2SAT 100
--- OUTSIDE RECORDS SUMMARY | 2025-01-23 00:22 | XMS RPT_ITS | CCD ---
Author Organization [facility] Care Team Providers Care Make Ready Worker Name Role Phone Blaire Almaraz MD Unavailable [phone] Marge Cunningham Unavailable [phone] NO, PHYSICIAN Primary Care Unavailable STEWART BOURNE Attending Unavail able ALEXANDR RODRIGUEZ Attending Unavailable NO, PHYSICIAN Primary Care Unavailable JIMMIE KAUFMAN Attending Unavailable NO, PHYSICIAN Primary Care Unavailable NO, PHYSICIAN Primary Care Unavailable IRAJ DOWNING Attending Unavailabl e IRAJ DOWNING Attending Unavailabl e NO, PHYSICIAN Primary Care Unavailable STEWART BOURNE Attending Unavail able NO, PHYSICIAN Primary Care Unavailable STEFANY GONZALEZ Attending Unavailable NO, PHYSICIAN Primary Care Unavailable DENISA BUENROSTRO Attending Unavaila ble NO, PHYSICIAN Primary Care Unavailable NO, PHYSICIAN Primary Care Unavailable IRAJ DOWNING Attending Unavailabl e JAK KNAPP Attending Unavaila ble NO, PHYSICIAN Primary Care Unavailable DUNIA SANTANA Attending Unavailab le NO, PHYSICIAN Primary Care Unavailable NO, PHYSICIAN Primary Care Unavailable STEFANY GONZALEZ Attending Unavailable Blaire Almaraz MD Unavailable Marge Cunningham Unavailable [phone] Unavailable Primary Care Provider Unavailabl e Unavailable Primary Care Provider Unavailabl REX Zamudio MD Attending Unavailable SHASHA GIBBS MD Primary Care Unavailable NO FAMILY PHYSICIAN, 837 Primary Care Unavail able REX QUEZADA MD Attending Unavailable SARAH PACHECO DO Attending Unavailable SHASHA GIBBS MD Primary Care Unavailable NO FAMILY PHYSICIAN, 837 Primary Care Unavail able PHILL VAZQUEZ DO Attending Unavailable NO FAMILY PHYSICIAN, 837 Primary Care Unavail able PHILL VAZQUEZ DO Attending Unavailable KINGSLEY MARQUES Attending Unavailable ISRAEL, WENDY E Referring Unavailable HARRY CROSS Attending Unavailable DARYN DORANTES Attending Unavailable PROVIDER, UNKNOWN Admitting Unavailable PROVIDER, UNKNOWN Attending Unavailable PROVIDER, UNKNOWN Admitting Unavailable HAYOBANI-SHANTA, ASHLEY Attending Unavaila ble HAXHIU-ERANASTASIIAT, LENDITA Admitting Unavaila ble Unavailable Primary Care Provider Unavailabl e Unavailable Primary Care Provider Unavailabl e Agnes CASTAÑEDA, Akilah Maribel Unavailable [phone] Yadiel CLAIRE, Delano P Primary Care Provider Delano Mayen DO P Primary Care Provider JAK MEDELLIN Attending Unavailable HEMAL CHOE Attending Unavailable DELANO MAYEN Primary Care Unavailable DELANO MAYEN Primary Care Unavailable Dr. Rik Marshall DO Attending Provider Dr. Rik Marshall DO Emergency Provider Dr. Richard Burgos MD Attending Provider Dr. Richard Burgos MD Emergency Provider [facility] Doctor, Out of Primary Care Provider Milton Solo MD, Mo Attending Provider [phone] Mo Solo MD Emergency Provider Dr. Vickie Louie DO Emergency Provider UngDr. Vickie crump DO Attending Provider [facility] Doctor, Out of Referring Provider Unavailab franny Cardoso MD, Dr. Amanda Attending Provider Dr. Juan Lovell MD Emergency Provider Care Physician, No Primary Primary Care Provider Unavailable Dr. Juan Lovell MD Attending Provider Care Physician, No Primary Referring Provider Un available Dr. Moriah Mcdonough DO Attending Provider Dr. Moriah Mcdonough DO Referring Provider Nanda NUR, Dr. Rivas Attending Provider [phone] Dr. Treasure Cardoso MD Referring Provider Dr. Treasure Cardoso MD Other Provider [phone] Triston NUR, Dr. Amanda Admit Provider [phone] Dr. Love Emery DO Emergency Provider Dr. Love Emery DO Attending Provider Dr. Jak Casas MD Attending Provider [facility] Primary Care Pro vider Care Physician, No Primary Referring Unava ilable Treasure Cardoso Attending [facility], [facility] Primary Care Unavailable Care Physician, No Primary Referring Unava ilable Jak Casas Attending [facility], [facility] Primary Care Unavailable Treasure Cardoso Attending Unavailable Town Doctor, Out of Referring Unavailable Town Doctor, Out of Primary Care Unavailable Moriah Mcdonough Attending Unavailabl e Care Physician, No Primary Primary Care Unava ilable Care Physician, No Primary Referring Unava ilable Richard Burgos Attending Unavailable Care Physician, No Primary Primary Care Unava ilable Care Physician, No Primary Primary Care Unava ilable Juan Lovell Attending Unavailable Care Physician, No Primary Primary Care Unava ilable Rik Marshall Attending Unavailable Love Emery Attending [facility], [facility] Primary Care Unavailable Mo Solo Attending Unavailable Town Doctor, Out of Primary Care Unavailable Moriah Mcdonough Referring Unavailabl e Moriah Mcdonough Attending Unavailabl e Care Physician, No Primary Primary Care Unava ilable Treasure Cardoso Attending Unavailable Care Physician, No Primary Primary Care Unava ilable Care Physician, No Primary Referring Unava ilable Treasure Cardoso Referring Unavailable Care Physician, No Primary Primary Care Unava ilable Rob Vee Attending Unavailable MarcanthonyTreasure Referring Unavailable Care Physician, No Primary Primary Care Unava ilable Marcnicony, Treasure Attending Unavailable Marcanthony, Treasure Consulting Unavailable Marcanthony, Treasure Referring Unavailable Care Physician, No Primary Primary Care Unava ilable MarcanthonyTreasure Attending Unavailable Marcanthony, Treasure Consulting Unavailable MarcanthonyTreasure Admitting Unavailable Town Doctor, Out of Primary Care Unavailable Vickie Louie Attending Unavailable Care Physician, No Primary Primary Care Unava ilable Juan Lovell Attending Unavailable BurgosRichard Attending Unavailable Town Doctor, Out of Primary Care Unavailable Rik Marshall Attending Unavailable Care Physician, No Primary Primary Care Unava ilable Love Emery Attending Unavailable Care Physician, No Primary Primary Care Unava ilable Care Physician, No Primary Primary Care Unava ilable Treasure Cardoso Attending Unavailable Treasure Cardoso Admitting Unavailable Treasure Cardoso Referring Unavailable Care Physician, No Primary Primary Care Unava ilable Juan Lovell Attending Unavailable Provider, Ed Physician Attending Unavailab le Care Physician, No Primary Primary Care Unava ilable Care Physician, No Primary Primary Care Unava ilable Treasure Cardoso Attending Unavailable Care Physician, No Primary Referring Unava ilable [facility] Provider DELANO MAYEN Primary Care Unavailable JO-ANN PARK Attending Unavailable BLAKE FALCON Attending Unavailable DELANO MAYEN Primary Care Unavailable DELANO MAYEN Primary Care Unavailable DELANO MAYEN Primary Care Unavailable GIDEON ACE Attending Unavailable Allergies Allergy Classification Reported Allergen(s) Allergy Type Date of Onset Reaction(s) Facility (8 sources) Ketorolac trometamol; Translations: [KETOROLAC TROMETHAMINE] Propensity to adverse reactions to drug 12-26-19 Urinary retention [facility] (20 sources) metroNIDAZOLE; Translations: [METRONIDAZOLE] Drug Allergy 12-26-19 Rash, Difficulty Breathing, Anaphylaxis [facility] (15 sources) Nalbuphine; Translations: [NALBUPHINE] Drug Allergy 12-26-19 Delirium, Mental Status Change [facility] (7 sources) traMADol; Translations: [TRAMADOL] Drug Allergy 12-26-19 Urinary retention [facility] (7 sources) Ketorolac Drug Allergy 12-26-19 Other: See Comments [facility] (2 sources) Naproxen Drug Allergy 09-11-19 Nausea [facility] (1 source) metroNIDAZOLE Drug Allergy 09-19-19 [facility] (1 source) Naproxen Drug Allergy 09-19-19 [facility] Medications Current Medications Medication Drug Class(es) Dates Sig (Normalized) Sig (Original) acetaminophen 500 mg oral tablet (2 sources) Start: 12-20-2023 take 1 tablet by mouth every six hours as needed for pain acetaminophen (TYLENOL) 500 MG tablet Take 1 Tablet by mouth every 6 hours as needed for Pain or Fever. 30 Tablet 12/20/2023 Active amoxicillin 875 mg / clavulanate 125 mg oral tablet (2 sources) Penicillin-class Antibacterial Start: 12-11-2024 End: 12-18-2024 take 1 tablet by mouth twice daily amoxicillin-clavul anate potassium (AUGMENTIN) 875-125 mg per tablet Indications: Facial swelling Take 1 tablet by mouth two times a day for 7 days. 14 tablet 12/11/2024 12/18/2024 Active Start: 06-07-2023 End: 06-14-2023 take 1 tablet by mouth twice daily amoxicillin-clavulanate potassium (AUGMENTIN) 875-125 mg per tablet Indications: Acute suppurative otitis media of left ear without spontaneous rupture of tympanic membrane, recurrence not specified Take 1 tablet by mouth two times a day for 7 days. 14 tablet 0 06/07/2023 06/14/2023 Active Comment on above: Take 1 tablet by yash th two times a day for 7 days. ARIPiprazole 20 mg oral tablet (20 sources) Atypical Antipsychotic Start: 06-04-19 take 1 tablet by mouth once daily Aripiprazole 20 mg tablet Active 20 mg PO DAILY June 04, 2024 1:00am Start: 03-02-2023 End: 06-16-2023 take 1 tablet by mouth once daily in the morning ARIPiprazole (ABILIFY) 30 mg tablet TAKE 1 TABLET BY MOUTH ONCE DAILY IN THE MORNING 0 03/02/2023 06/16/2023 Discontinued ARIPiprazole (AB ILIFY) 15 mg tablet Take 20 mg by mouth once daily. Active take 1 tablet by yash th once daily ARIPiprazole (ABILIFY) 15 mg tablet Take 15 mg by mouth once daily. Active Comment on above: TAKE 1 TABLET BY YASH TH ONCE DAILY IN THE MORNING cephalexin 500 mg oral capsule (3 sources) Cephalosporin Antibacterial Start: End: take 2 capsules by mouth twice daily cephalexin (Keflex) 500 MG capsule Take 2 capsules (1,000 mg) by mouth 2 times daily for 7 days. 28 capsule 04/26/2024 05/03/2024 Active Start: 12-20-2023 End: 12-27-2023 take 1 capsule by mouth twice daily cephALEXin (KEFLEX) 500 MG capsule Take 1 Capsule by mouth 2 times daily for 7 days. 14 Capsule 12/20/2023 12/27/2023 Active clonazePAM 0.5 mg oral tablet (14 sources) Benzodiazepine Start: 06-04-2024 take 1 tablet by mouth at bedtime as needed for anxiety Clonazepam 0.5 mg tablet Active 0.5 mg PO AT BEDTIME as needed for anxiety June 04, 2024 1:00am cyclobenzaprine hydrochloride 10 mg oral tablet (11 sources) Muscle Relaxant Start: 07-15-2024 take 1 tablet by mouth three times daily as needed for muscle spasms Cyclobenzaprine 10 mg tablet Active 10 mg PO THREE TIMES A DAY as needed for muscle spasm July 15, 2024 12:00am Start: 12-20-2023 take 1 tablet by yash th three times daily as needed for muscle spasms cyclobenzaprine (FLEXERIL) 5 MG tablet Take 1 Tablet by mouth 3 times daily as needed for Muscle spasms. 30 Tablet 12/20/2023 Active diazePAM 2 mg oral tablet (4 sources) Benzodiazepine Start: 09-03-2024 take 1 tablet by mouth twice daily as needed for muscle spasms Diazepam (Valium) 2 mg tablet Active 2 mg PO TWICE A DAY as needed for muscle spasm September 03, 2024 12:00am do not take within 4 hours of the percocet Docusate (7 sources) take 1 tablet by mouth once daily docusate sodium (COLACE ORAL) Take 1 tablet by mouth once daily. Active doxycycline hyclate 100 mg oral capsule (8 sources) Tetracycline-class Drug Start: 11-16-2024 End: 11-16-2024 take 1 capsule by mouth twice daily doxycycline hyclate (VIBRAMYCIN) 100 mg capsule Take 1 capsule by mouth two times a day. 14 capsule 11/16/2024 Active Start: 10-03-2023 End: 10-13-2023 take 1 tablet by mouth every twelve hours doxycycline monohydrate 100 mg tablet Indications: Bronchitis Take 1 tablet by mouth every 12 hours for 10 days. 20 tablet 0 10/03/2023 10/13/2023 Active ibuprofen 400 mg oral tablet (7 sources) Nonsteroidal Anti-inflammatory Drug Start: 09-10-2024 take 1 tablet by mouth every eight hours Ibuprofen 400 mg tablet Active 400 mg PO Q8H September 10, 2024 12:00am Start: 07-02-2023 End: 03-11-2024 ibuprofen (MOTRIN) 600 mg ta blet Take 600 mg by mouth as needed for pain. 07/02/2023 03/11/2024 Discontinued lidocaine 0.05 mg/mg medicated patch (4 sources) Antiarrhythmic, Amide Local Anesthetic Start: 04-01-2024 End: 04-11-2024 apply 1 dose transdermal route once daily, then apply 1 dose transdermal route every twelve hours lidocaine (Lidoderm) 5 % patch Apply 1 patch topically daily for 10 days. Remove & discard patch within 12 hours or as directed by . 10 patch 04/01/2024 04/11/2024 Active Start: 04-01-2024 End: 04-01-2024 apply 1 dose transdermal route every twelve hours, then apply 1 dose transdermal route once 1 patch, TransDERmal, Administer over 12 Hours, Once, On Sat04/01/24 at 0550, For 1 dose, Apply to left low back. LORazepam 0.5 mg oral tablet (2 sources) Benzodiazepine Start: 12-20-2023 End: 12-20-2023 0.5 mg, Oral, STAT, 1 dose, On Sat12/20/23 at 0904 Start: 12-20-2023 End: 12-20-2023 take 0.5 mg intravenously once 0.5 mg, Intravenous Pus h, ONCE, 1 dose, On Sat12/20/23 at 0342 methocarbamol 500 mg oral tablet (4 sources) Muscle Relaxant Start: 04-01-2024 End: 04-09-2024 take 1 tablet by mouth every six hours as needed methocarbamol (Robaxin) 500 MG tablet Take 1 tablet (500 mg) by mouth every 6 hours as needed for muscle spasms for up to 8 days. 32 tablet 04/01/2024 Active methylPREDNISolone (1 source) Corticosteroid Start: 10-03-2023 End: 10-09-2023 methylPREDNISolone (MEDROL, JARET,) 4 mg Dose-Pack Indications: Bronchitis Take as instructed per package. 21 tablet 0 10/03/2023 10/09/2023 Active naproxen 500 mg oral tablet (20 sources) Nonsteroidal Anti-inflammatory Drug Start: 08-25-2024 End: 09-10-2024 take 1 tablet by mouth twice daily as needed for pain Naproxen 500 mg tablet Active 500 mg PO TWICE A DAY as needed for Pain August 28, 2024 12:00am Start: 07-15-2024 End: 08-09-2024 take 1 tablet by mouth twice daily as needed for pain Naproxen 500 mg tablet Discontinued 500 mg PO TWICE A DAY as needed for pain July 15, 2024 12:00am August 09, 2024 11:43am administer with food or milk Start: 06-04-2024 End: 07-08-2024 take 1 tablet by mouth twice daily Naproxen 500 mg tablet Discontinued 500 mg PO TWICE A DAY June 04, 2024 1:00am July 08, 2024 7:57pm polyethylene glycol 3350 00585 mg powder for oral solution (5 sources) Osmotic Laxative Start: 12-29-2019 take 8 [oz_av] by mouth once daily polyethylene glycol (MiraLax) 17 GM/SCOOP powder Take 17 g by mouth daily. Mix in 8 oz of water 300 g 10 12/29/2019 Active QUEtiapine 25 mg oral tablet (7 sources) Atypical Antipsychotic QUEtiapine (SEROQUEL) 25 mg tablet Take 25 mg by mouth as needed. Active sennosides, long term 8.6 mg oral tablet (4 sources) Start: 12-29-2019 take 1 tablet by mouth once daily as needed for constipation senna (SENOKOT) 8.6 MG tablet Take 1 Tablet by mouth daily as needed for Constipation. 30 Tablet 12/29/2019 Active Completed/Discontinued Medications Medication Drug Class(es) Dates Sig (Normalized) Sig (Original) acetaminophen 325 mg / HYDROcodone bitartrate 5 mg oral tablet (20 sources) Opioid Agonist Start: 08-09-2024 End: 08-28-2024 Hydrocodone-Acetami nophen 5-325 mg tablet Discontinued 1 {tbl} PO EVERY 6 HOURS NEEDED as needed for Pain 19 08August 09, 2024 August 28, 2024 1:03pm Start: 07-08-2024 End: 08-13-2024 Hydrocodone-Acetaminophen 5- 325 mg tablet Discontinued 1 {tbl} PO Q4H as needed for Pain August 09, 2024 12:00am August 13, 2024 8:27am acetaminophen 325 mg / oxyCODONE hydrochloride 5 mg oral tablet (20 sources) Opioid Agonist Start: 09-10-2024 End: 09-10-2024 Oxycodone-Acetaminophen (Percocet) 5-325 mg tablet Discontinued 1 {tbl} PO Q8H as needed September 10, 2024 12:00am September 10, 2024 8:37am Start: 09-09-2024 End: 09-10-2024 Oxycodone-Acetaminophen (Per cocet) 5-325 mg tablet Discontinued 1 {tbl} PO EVERY 6 HOURS as needed for pain 4 September 09, 2024 September 09, 2024 12:00am September 10, 2024 12:08am Start: 08-25-2024 End: 09-09-2024 take 1 tablet by mouth every four hours as needed for pain Oxycodone-Acetaminophen (Percocet) 5-325 mg tablet Active 1 {tbl} PO Q4H as needed for pain 28 September 03, 2024 Start: 04-26-2024 End: 04-26-2024 1 tablet, Oral, Once, On 04/26/24 at 1720, For 1 dose, Maximum dose of acetaminophen is 4000 mg from all sources in 24 hours. Start: 04-26-2024 End: 04-28-2024 take 1 tablet by mouth every six hours as needed for pain oxyCODONE-acetaminophen (Percocet) 5-325 MG tablet Indications: Abscess of groin, right Take 1 tablet by mouth every 6 hours as needed for moderate pain (4-6) for up to 2 days. 8 tablet 04/26/2024 04/28/2024 Active amoxicillin 500 mg oral capsule (7 sources) Penicillin-class Antibacterial Start: 07-01-2023 End: 03-11-2024 take 1 capsule by mouth three times daily amoxicillin (AMOXIL) 500 mg capsule TAKE 1 CAPSULE BY MOUTH THREE TIMES DAILY DIRECTED 07/01/2023 03/11/2024 Discontinued Start: 05-29-2023 End: 06-05-2023 take 1 tablet by mouth twice daily amoxicillin (AMOXIL) 875 mg tablet Indications: Acute otitis media, left Take 1 tablet by mouth two times a day for 7 days. 14 tablet 0 05/29/2023 06/05/2023 Active Comment on above: Take 1 tablet by yash th two times a day for 7 days. azelastine hydrochloride 0.137 mg/actuat metered dose nasal spray (6 sources) Histamine-1 Receptor Antagonist Start: End: take 2 spray(s) nasal route twice daily azelastine 0.1% nasal spray Indications: Eustachian tube disorder, left Use 2 Sprays in each nostril two times a day. 30 mL 06/16/2023 03/11/2024 Discontinued Comment on above: Use 2 Sprays in each nostril two times a day. calcium chloride 0.0014 meq/ml / potassium chloride 0.004 meq/ml / sodium chloride 0.103 meq/ml / sodium lactate 0.028 meq/ml injectable solution (1 source) Start: End: take 1 dose intravenously every hour 1,000 mL, at 999 mL/hr, Intravenous, FLUID BOLUS, 1 dose, On Sat12/20/23 at 0342 10 ml calcium gluconate 100 mg/ml injection (1 source) Start: End: take 1 dose intravenously once 2,000 mg, Intravenous Push, ONCE, 1 dose, On Sat12/20/23 at 0506 cefTRIAXone 1000 mg injection (1 source) Cephalosporin Antibacterial Start: 1,000 mg, Intravenous, EVERY 24 HOURS ANTIBIOTIC, First dose on Sat12/20/23 at 0559, Until Discontinued clindamycin 150 mg oral capsule (4 sources) Lincosamide Antibacterial Start: End: take 300 mg by mouth once 300 mg, Oral, Once, On Sat02/24/24 at 2000, For 1 dose, Suspected Indication (Select all that apply): Skin and Soft Tissue Infection Start: 02-24-2024 End: 03-02-2024 take 1 capsule by mouth three times daily clindamycin (Cleocin) 300 MG capsule Take 1 capsule (300 mg) by mouth 3 times daily for 7 days. 21 capsule 02/24/2024 03/02/2024 Active diclofenac sodium 75 mg delayed release oral tablet (6 sources) Nonsteroidal Anti-inflammatory Drug Start: 06-16-2023 End: 03-11-2024 take 1 tablet by mouth twice daily as needed for pain diclofenac, EC, (VOLTAREN) 75 mg EC tablet Indications: Eustachian tube disorder, left Take 1 tablet by mouth two times a day as needed (for pain). 14 tablet 06/16/2023 03/11/2024 Discontinued Comment on above: Take 1 tablet by yash th two times a day as needed (for pain). dicyclomine hydrochloride 10 mg oral capsule (10 sources) Anticholinergic Start: 06-04-2024 End: 07-08-2024 take 1 capsule by mouth four times daily Dicyclomine 10 mg capsule Discontinued 10 mg PO 4 TIMES DAILY June 04, 2024 1:00am July 08, 2024 7:57pm 0.4 ml enoxaparin sodium 100 mg/ml prefilled syringe (6 sources) Low Molecular Weight Heparin Start: 08-25-2024 End: 09-08-2024 Enoxaparin (Lovenox) 40 mg/0.4 mL syringe Discontinued 40 mg SQ DAILY August 25, 2024 12:00am September 08, 2024 10:49am fluconazole 150 mg oral tablet (7 sources) Azole Antifungal Start: 06-07-2023 End: 03-11-2024 fluconazole (DIFLUCAN) 150 mg tablet Indications: Acute suppurative otitis media of left ear without spontaneous rupture of tympanic membrane, recurrence not specified Take one tablet by mouth and you can repeat another dose in 72 hours if symptoms persist 2 tablet 06/07/2023 03/11/2024 Discontinued Comment on above: Take one tablet by m outh and you can repeat another dose in 72 hours if symptoms persist fluticasone propionate 0.05 mg/actuat metered dose nasal spray (9 sources) Corticosteroid Start: 05-29-2023 End: 03-11-2024 take 1 spray(s) nasal route once daily at bedtime fluticasone (FLONASE) 50 mcg/actuation nasal spray Indications: Acute otitis media, left Use 1 Dennison in each nostril daily at bedtime. 9.9 mL 05/29/2023 03/11/2024 Discontinued Comment on above: Use 1 Dennison in each nostril daily at bedtime. 1000 ml glucose 50 mg/ml / potassium chloride 0.02 meq/ml / sodium chloride 9 mg/ml injection (1 source) Start: 12-20-2023 Intravenous, at 500 mL/hr, CONTINUOUS, Starting on Sat12/20/23 at 0506, Until Discontinued iohexol (OMNIPAQUE) 350 MG/ML injection (1 source) Start: 12-20-2023 End: 12-20-2023 take 1 dose intravenously once 100 mL, Intravenous Push, Once at Radiology exam, 1 dose, Starting on Sat12/20/23 at 0457, Until Sat12/20/23 at 0447, Imaging Protocol Orders 1 ml ketorolac tromethamine 15 mg/ml cartridge (1 source) Nonsteroidal Anti-inflammatory Drug, Cyclooxygenase Inhibitor Start: 12-20-2023 End: 12-20-2023 take 1 dose intravenously once 15 mg, Intravenous Push, ONCE, 1 dose, On Sat12/20/23 at 0342 100 ml magnesium sulfate 10 mg/ml injection (1 source) Start: 12-20-2023 End: 12-20-2023 1,000 mg, Intravenous, ONCE, 1 dose, On Sat12/20/23 at 0559 meclizine hydrochloride 25 mg oral tablet (10 sources) Antiemetic Start: 06-04-2024 End: 07-08-2024 take 1 tablet by mouth three times daily Meclizine 25 mg tablet Discontinued 25 mg PO THREE TIMES A DAY June 04, 2024 1:00am July 08, 2024 7:57pm ondansetron 4 mg disintegrating oral tablet (10 sources) Serotonin-3 Receptor Antagonist Start: 06-04-2024 End: 07-08-2024 take 1 tablet by mouth every eight hours as needed for nausea Ondansetron 4 mg tablet,disinteg rating Discontinued 4 mg PO EVERY 8 HOURS NEEDED as needed for Nausea June 04, 2024 1:00am July 08, 2024 7:57pm 2 ml orphenadrine citrate 30 mg/ml injection (7 sources) Muscle Relaxant Start: 04-01-2024 End: 04-01-2024 inject 60 mg by intramuscular injection once 60 mg, IntraMUSCular, Once, On Sat04/01/24 at 0550, For 1 dose Start: 07-02-2023 End: 03-11-2024 take 1 tablet by mouth every twelve hours orphenadrine ER (NORFLEX) 100 mg tablet Take 1 tablet by mouth every 12 hours. 07/02/2023 03/11/2024 Discontinued oxyCODONE hydrochloride 5 mg oral tablet (9 sources) Opioid Agonist Start: 08-30-2024 End: 09-09-2024 take 1 tablet by mouth every six hours Oxycodone 5 mg tablet Discontinued 5 mg PO EVERY 6 HOURS 12 August 30, 2024 September 09, 2024 8:42am Start: 04-01-2024 End: 04-04-2024 take 1 tablet by mouth every six hours as needed for pain oxyCODONE (Roxicodone) 5 MG immediate release tablet Indications: Acute left-sided low back pain with left-sided sciatica Take 1 tablet (5 mg) by mouth every 6 hours as needed for severe pain (7-10) for up to 3 days. 5 tablet 04/01/2024 04/04/2024 Active Start: 04-01-2024 End: 04-01-2024 take 5 mg by mouth once 5 mg, Oral, Once, On Sat at 0550, For 1 dose pantoprazole 20 mg delayed release oral tablet (1 source) Proton Pump Inhibitor Start: 01-20-2024 End: 03-11-2024 take 1 tablet by mouth once daily pantoprazole DR (PROTONIX) 20 mg tablet Take 1 tablet by mouth once daily. 30 tablet 01/20/2024 03/11/2024 Discontinued pseudoephedrine hydrochloride 30 mg oral tablet (6 sources) alpha-Adrenergi c Agonist Start: 06-16-2023 End: 03-11-2024 take 1 tablet by mouth every four hours as needed pseudoephedrine (SUDAFED) 30 mg tablet Indications: Eustachian tube disorder, left Take 1 tablet by mouth every 4 hours as needed for cold/allergy symptoms (ear pressure). 30 tablet 06/16/2023 03/11/2024 Discontinued Comment on above: Take 1 tablet by yash every 4 hours as needed for cold/allergy symptoms (ear pressure). sertraline 100 mg oral tablet (4 sources) Serotonin Reuptake Inhibitor Start: 03-02-2023 End: 06-16-2023 sertraline (ZOLOFT) 100 mg tablet Take 150 mg by mouth as directed. 0 03/02/2023 06/16/2023 Discontinued Comment on above: Take 150 mg by mouth as directed. traMADol hydrochloride 50 mg oral tablet (4 sources) Opioid Agonist Start: 02-24-2024 End: 02-24-2024 take 50 mg by mouth once 50 mg, Oral, Once, On 02/24/24 at 2000, For 1 dose Start: 02-24-2024 End: 02-29-2024 take 1 tablet by mouth every six hours as needed for pain traMADol (Ultram) 50 MG tablet Indications: Skin infection Take 1 tablet (50 mg) by mouth every 6 hours as needed for severe pain (7-10) for up to 5 days. 15 tablet 02/24/2024 02/29/2024 Active Problems Active Problems Problem Classification Problem Date Documented Da te Episodic/Chronic Abdominal pain (20 sources) Right lower quadrant pain; Translations: [Right lower quadrant pain] Onset: 4 12-20-2023 Episodic Comment on above: Likely secondary to 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 Patient counseled regarding options of bilateral ovarian removal versus right ovary removal due to pelvic pain being primarily on the right side. Discussed the risk of premature menopause the patient wishes to retain ovarian function if possible. Plan right oophorectomy and left ovarian cystectomy if there is left ovarian pathology present. Administrative/social admission (6 sources) Encounter for issue of repeat prescription; Translations: [Other problems related to medical facilities and other health care] Onset: 3 Episodic Anxiety disorders (4 sources) Generalized anxiety disorder; Translations: [Anxiety disorder, unspecified] Onset: 3 Chronic Chronic obstructive pulmonary disease and bronchiectasis (1 source) Bronchitis; Translations: [Bronchitis, not specified as acute or chronic] 10-03-2023 Episodic Complications of surgical procedures or medical care (6 sources) Seroma; Translations: [Seroma complicating a procedure] 09-08-2024 Episodic Comment on above: Patient is 49-year-o ld female status post takeback surgery for exploration and control of abdominal wall hematoma. Postoperatively she has dealt with persistent pain to this area but is pleased to report today that her pain experiences significantly improved over the past 1 week. Further, she confirms decrease in the size of the area of concern. Indeed, on exam I find a well-healing surgical site without concern for infection. When I applied a bedside ultrasound to the area identified a subcutaneous fluid pocket measuring 5.4 x 3.6 x 1.1 cm. This is significantly smaller than the 10.3 x 5.6 cm fluid collection identified by radiology at patient's last CT imaging on 08/28/2024. I had a lengthy conversation with patient today discussing continued watchful waiting versus intervention using aspiration plus minus seroma catheter insertion. Patient is very reluctant to undergo additional procedures and I believe would have a difficult time with managing an external drain. Given my exam findings I am encouraged that this area will proceed to spontaneous resolution so I simply provided reassurance. I also attempted to set the expectation that the time of arising for resolution will likely be weeks to months. From my standpoint there would be no contraindication to patient returning to her work duties where she assures me there is no exertion or chance for even mild trauma to the area. I am happy to see her for an additional clinic visit but she is already scheduled with [facility] for future wound care visit. Delirium, dementia, and amnestic and other cognitive disorders (19 sources) Postconcussion syndrome; Translations: [Postconcussional syndrome] 06-12-2024 Chronic Diseases of mouth; excluding dental (2 sources) Unspecified lesions of oral mucosa; Translations: [Unspecified lesions of oral mucosa] Onset: 3 Episodic E Codes: Natural/environment (2 sources) Bitten or stung by nonvenomous insect and other nonvenomous arthropods, subsequent encounter; Translations: [Bitten or stung by nonvenomous insect and other nonvenomous arthropods, initial encounter] Onset: 5 Episodic Fluid and electrolyte disorders (4 sources) Hypokalemia; Translations: [Dehydration] Onset: 3 Episodic Gastrointestinal hemorrhage (1 source) Hemorrhage of anus and rectum; Translations: [Rectal bleeding] Onset: 4 Episodic Genitourinary symptoms and ill-defined conditions (3 sources) Urgent desire to urinate; Translations: [Urgency of urination] 09-07-2024 Episodic Headache; including migraine (1 source) Status migrainosus; Translations: [Migraine, unspecified, not intractable, with status migrainosus] Onset: 4 01-29-2024 Chronic Headache; including migraine (9 sources) Headache; Translations: [Headache] 07-28-2024 Episodic Headache; including migraine (1 source) Headache; including migraine; Translations: [Headache, unspecified] Onset: 5 Intracranial injury (10 sources) Concussion with no loss of consciousness; Translations: [Concussion without loss of consciousness, initial encounter] 06-12-2024 Episodic Mood disorders (2 sources) Bipolar disorder, current episode manic without psychotic features, moderate; Translations: [Moderate manic bipolar I disorder] Onset: 4 01-31-2024 Chronic Nutritional deficiencies (1 source) Vitamin D deficiency; Translations: [Vitamin D deficiency, unspecified] Onset: 4 01-29-2024 Chronic Other bone disease and musculoskeletal deformities (1 source) Segmental and somatic dysfunction of thoracic region; Translations: [Segmental and somatic dysfunction of thoracic region] Onset: 5 Episodic Other female genital disorders (18 sources) Mittelschmerz; Translations: [Mittelschmerz] 08-21-2024 Chronic Other female genital disorders (1 source) Mittelschmerz; Translations: [Mittelschmerz] Onset: 5 Chronic Other female genital disorders (1 source) Personal history of other diseases of the female genital tract; Translations: [Personal history of other diseases of the female genital tract] Onset: 5 Episodic Other female genital disorders (1 source) Other specified conditions associated with female genital organs and menstrual cycle; Translations: [Other specified conditions associated with female genital organs and menstrual cycle] Onset: 5 Episodic Other hereditary and degenerative nervous system conditions (2 sources) Restless legs syndrome; Translations: [Restless legs syndrome] Onset: 3 Chronic Other injuries and conditions due to external causes (10 sources) Injury of head; Translations: [Unspecified injury of head, initial encounter] 06-12-2024 Episodic Other injuries and conditions due to external causes (9 sources) H/O: head injury; Translations: [Personal history of other (healed) physical injury and trauma] 07-28-2024 Episodic Other injuries and conditions due to external causes (1 source) Unspecified injury of head, initial encounter; Translations: [Unspecified injury of head, initial encounter] Onset: 5 Episodic Other injuries and conditions due to external causes (1 source) Injury, unspecified, initial encounter; Translations: [Injury, unspecified, initial encounter] Onset: 5 Episodic Other nervous system disorders (1 source) Other chronic pain; Translations: [Chronic left-sided low back pain with left-sided sciatica] Onset: 4 Chronic Other nervous system disorders (8 sources) Postoperative pain ; Translations: [Other acute postprocedural pain] 08-28-2024 Episodic Other nutritional; endocrine; and metabolic disorders (10 sources) Abnormal weight loss; Translations: [Abnormal weight loss] 02-28-2024 Episodic Other screening for suspected conditions (not mental disorders or infectious disease) (3 sources) Patient encounter status; Translations: [Encounter for screening for malignant neoplasm of vagina] 03-11-2024 Episodic Other skin disorders (1 source) Facial swelling ; Translations: [Localized swelling, mass and lump, head] 12-11-2024 Episodic Other skin disorders (1 source) Localized swelling, mass and lump, head; Translations: [Facial swelling] Onset: 5 Episodic Other upper respiratory infections (2 sources) Viral upper respiratory tract infection; Translations: [Acute upper respiratory infection, unspecified] 09-30-2023 Episodic Otitis media and related conditions (3 sources) Acute left otitis media; Translations: [Otitis media, unspecified, left ear] 05-29-2023 Episodic Ovarian cyst (20 sources) Cyst of ovary; Translations: [Unspecified ovarian cyst, unspecified side] Onset: 5 12-20-2023 Episodic Comment on above: recommend fu US in 6 weeks. right side and then left. possible that the repeat US shows the same side having a cyst. Residual codes; unclassified (1 source) History of operative procedure on lumbar spinal structure; Translations: [Other specified postprocedural states] 07-29-2023 Episodic Residual codes; unclassified (1 source) Procedure and treatment not carried out because of patient's decision for other reasons; Translations: [Left against medical advice] Onset: Episodic Residual codes; unclassified (1 source) Family history of breast cancer; Translations: [Family history of malignant neoplasm of breast] 03-11-2024 Episodic Residual codes; unclassified (1 source) Family history of cancer of colon; Translations: [Family history of malignant neoplasm of digestive organs] 03-11-2024 Episodic Residual codes; unclassified (12 sources) History of right oophorectomy; Translations: [Acquired absence of ovaries, unilateral] 08-25-2024 Episodic Residual codes; unclassified (1 source) Pain, unspecified; Translations: [Pain, unspecified] Onset: 5 Episodic Residual codes; unclassified (1 source) Acquired absence of ovaries, unilateral; Translations: [Acquired absence of ovaries, unilateral] Onset: 5 Episodic Residual codes; unclassified (1 source) Other specified postprocedural states; Translations: [Other specified postprocedural states] Onset: 5 Episodic Residual codes; unclassified (1 source) Acquired absence of other genital organ(s); Translations: [Acquired absence of other genital organ(s)] Onset: 5 Episodic Screening and history of mental health and substance abuse codes (3 sources) Personal history of other mental and behavioral disorders; Translations: [Patient encounter status] Onset: 3 Episodic Skin and subcutaneous tissue infections (10 sources) Infection of skin; Translations: [Local infection of the skin and subcutaneous tissue, unspecified] Onset: 4 02-24-2024 Episodic Spondylosis; intervertebral disc disorders; other back problems (16 sources) Chronic low back pain; Translations: [Lumbago with sciatica, left side] Onset: 4 07-29-2023 Episodic Superficial injury; contusion (20 sources) Hematoma of abdominal wall; Translations: [Contusion of abdominal wall, initial encounter] Onset: 5 08-26-2024 Episodic Comment on above: Immediately postop r ight trocar site, s/p evacuation and management percocet given again and small script for valium, reviewed improtance to not take together reviewed risks and importance. Syncope (2 sources) Syncope and collapse; Translations: [Syncope and collapse] Onset: 3 Episodic Unclassified (1 source) Low back pain, unspecified; Translations: [Low back pain, unspecified] Onset: 3 Unclassified (1 source) Other problems related to housing and economic circumstances; Translations: [Other problems related to housing and economic circumstances] Onset: 3 Unclassified (1 source) OPENED IN ERROR 05-28-2023 Urinary tract infections (10 sources) Chronic interstitial cystitis; Translations: [Interstitial cystitis (chronic) without hematuria] 12-20-2023 Chronic Urinary tract infections (1 source) Urinary tract infectious disease; Translations: [Urinary tract infection, site not specified] 12-20-2023 Episodic Past or Other Problems Problem Classification Problem Date Documented Da te Episodic/Chronic Disorders of teeth and jaw (6 sources) Periapical abscess without sinus; Translations: [Other specified disorders of teeth and supporting structures] Onset: 08-26-2022 Episodic Nutritional deficiencies (1 source) Cobalamin deficiency; Translations: [Deficiency of other specified B group vitamins] Onset: 01-29-2024 01-29-2024 Episodic Other connective tissue disease (2 sources) Other muscle spasm; Translations: [Other muscle spasm] Onset: 08-09-2022 Episodic Other connective tissue disease (2 sources) Fibromyalgia; Translations: [Fibromyalgia] Onset: 04-26-2022 Episodic Other connective tissue disease (2 sources) Pain in leg, unspecified; Translations: [Pain in leg, unspecified] Onset: 04-18-2022 Episodic Other connective tissue disease (2 sources) Iliotibial band syndrome, unspecified leg; Translations: [Iliotibial band syndrome, unspecified leg] Onset: 04-18-2022 Episodic Residual codes; unclassified (2 sources) Other specified health status; Translations: [Other specified health status] Onset: 07-14-2022 Episodic Residual codes; unclassified (1 source) Illness, unspecified; Translations: [Illness, unspecified] Onset: 03-17-2024 Episodic Unclassified (1 source) Low back pain, unspecified; Translations: [Low back pain, unspecified] Onset: 08-09-2022 Unclassified (1 source) Other problems related to housing and economic circumstances; Translations: [Other problems related to housing and economic circumstances] Onset: 07-14-2022 Results Test Name Value Interpretation Reference Range Facility OVon 12-11-2024 CNOV Office Visit ([facility]) ----- LM ALVARADO ([id number]) 1975 F T Date Time Provider Department 12/11/24 2:00 PM BLAKE FALCON During your visit today, we recorded the following information about you: Temperature Pulse Respiration Blood pressure 97.7 degrees 97/minute 20/minute 94/62 Weight 54 kg Blake Falcon, SUNSHINE.CUSTOMER QUALITY ENGINEER 12/11/2024 2:09 PM Signed [facility] Subjective Lm Alvarado is a 49 year old female. Patient presents with: Edema: Right side of face swelling, pressure in area, no pain x this am Edema The patient is a 49-year-old female presenting with facial swelling and pressure. Facial Swelling and Pressure: - Acute onset of facial swelling and pressure, noticed upon waking this morning. - Swelling localized to the right side of the face, extending from the cheek to the upper jaw. - Describes a ton of pressure but denies pain. - Recent history of nasal congestion and suspected allergies. - Taking Benadryl and ibuprofen with minimal relief. - Denies ear pain, hearing difficulties, sore throat, cough, or facial pruritus. - Denies dental pain. Review of Systems Head: (+) facial swelling, (+) facial pressure, (-) facial pain Ears/Nose/Mouth/Throat: (+) nasal congestion, (-) ear pain, (-) hearing difficulty, (-) tooth pain, (-) sore throat Respiratory: (-) cough Skin: (-) facial pruritus Objective BP 94/62 Pulse 97 Temp 36.5 ?C (97.7 ?F) Resp 20 Wt 54 kg (119 lb 0.8 oz) SpO2 98% BMI 20.43 kg/m? PAST MEDICAL HISTORY Diagnosis Date - Abnormal Pap smear of vagina - Anemia - Bipolar disorder (HCC) - BRCA negative 03/2024 Negative [facility] Panel - Constipation - Depression - Diarrhea - Dyspareunia in female - Hypotension - Interstitial cystitis - Migraines - Ovarian cyst - Pulmonary embolism (HCC) after back surgery PAST SURGICAL HISTORY Procedure Laterality Date - BACK SURGERY HX 2006 L3 AND L4 - BLADDER SURGERY HX 2009 bladder distention x4 - LIGATE FALLOPIAN TUBE 2003 - S BALLOON,UTERINE ABLATION [id number] 2005 - VAGINAL HYSTERECTOMY 2012 ovaries remain ALLERGIES Flagyl [Metronidazole], Flagyl [Metronidazole], Ketorolac Tromethamine, and Nalbuphine MEDICATIONS - clonazePAM (KLONOPIN) 0.5 mg tablet Take 0.5 mg by mouth once daily as needed. - ARIPiprazole (ABILIFY) 15 mg tablet Take 20 mg by mouth once daily. - amoxicillin-clavulanate potassium (AUGMENTIN) 875-125 mg per tablet Take 1 tablet by mouth two times a day for 7 days. - doxycycline hyclate (VIBRAMYCIN) 100 mg capsule Take 1 capsule by mouth two times a day. - doxycycline hyclate (VIBRAMYCIN) 100 mg capsule Take 1 capsule by mouth two times a day. - QUEtiapine (SEROQUEL) 25 mg tablet Take 25 mg by mouth as needed. (Patient not taking: Reported on 11/14/2024) - docusate sodium (COLACE ORAL) Take 1 tablet by mouth once daily. FAMILY HISTORY Problem Relation Age of Onset - other (BRCA Negative?) Mother - Ovarian cancer Maternal Grandmother 69 - Colon Cancer Maternal Grandfather 72 - other (transgender male to female) Son - Breast Cancer Paternal Aunt 47 - Brain Cancer Maternal cousin 14 - Colon Cancer Maternal cousin 34 - Colon Cancer Maternal cousin 39 - Colon Cancer Other 47 SOCIAL HISTORY[1] Physical Exam Vitals and nursing note reviewed. Constitutional: General: She is not in acute distress. Appearance: Normal appearance. She is not ill-appearing. HENT: Head: Right Ear: Tympanic membrane, ear canal and external ear normal. Left Ear: Tympanic membrane, ear canal and external ear normal. Nose: Nose normal. Mouth/Throat: Mouth: Mucous membranes are moist. Dentition: No dental tenderness, gingival swelling, dental abscesses or gum lesions. Pharynx: Oropharynx is clear. Uvula midline. No pharyngeal swelling, oropharyngeal exudate, posterior oropharyngeal erythema or uvula swelling. Cardiovascular: Rate and Rhythm: Normal rate and regular rhythm. Heart sounds: Normal heart sounds. Pulmonary: Effort: Pulmonary effort is normal. No respiratory distress. Breath sounds: Normal breath sounds. No wheezing or rales. Lymphadenopathy: Cervical: No cervical adenopathy. Skin: General: Skin is warm and dry. Findings: No erythema or rash. Neurological: Mental Status: She is alert. { 1. Facial swelling (R22.0) - Acute facial swelling and pressure likely secondary to sinus infection; dental etiology less likely given absence of tooth pain and intraoral findings. - Start Augmentin. - Advised cool compresses to affected area. - Discussed avoidance of doxycycline due to patient's concerns about calcium intake and sun sensitivity. - Follow-up with your PCP in 3-5 days if symptoms have not improved or sooner if symptoms worsen - Discussed red flags and need for immediate medical evaluation if any occur. (more content not included)... Normal [facility] CNOVon 11-16-2024 CNOV Office Visit ([facility]) ----- LM ALVARADO ([id number]) 1975 F T Date Time Provider Department 11/16/24 1:00 PM JO-ANN PARK During your visit today, we recorded the following information about you: Temperature Pulse Respiration Blood pressure 98.9 degrees 100/minute 18/minute 100/64 Weight 53.4 kg Jo-Ann Park APRN.CUSTOMER QUALITY ENGINEER 11/16/2024 1:23 PM Signed [facility] Subjective Lm Alvarado is a 49 year old female. Patient presents with: Trauma: Insect bite on left knee, painful Trauma Left Knee Bite: - Onset: Saturday while camping at near [facility]. - [place] a burn and sting through long pants while walking in a field. - Visible bite chandler in the center of the affected area. - Reports increased redness since initial presentation. - Pain described as significant, especially when ascending stairs. - Denies seeing what bit her. She was here on 11/14/2024 for same. Was instructed on supportive measures, but today worsening Bipolar Depression: - Managed with Abilify 20 mg daily and Klonopin 0.5 mg. - Experiences white coat syndrome. DVT: - History of DVT secondary to surgery in 2005. - Previously treated with anticoagulants. Allergies: - Allergic to Flagyl. PAST MEDICAL HISTORY[1] PAST SURGICAL HISTORY Procedure Laterality Date BACK SURGERY HX 2006 L3 AND L4 BLADDER SURGERY HX 2009 bladder distention x4 LIGATE FALLOPIAN TUBE 2004 S BALLOON,UTERINE ABLATION [id number] 2005 VAGINAL HYSTERECTOMY 2012 ovaries remain ALLERGIES Flagyl [Metronidazole], Flagyl [Metronidazole], Ketorolac Tromethamine, and Nalbuphine MEDICATIONS clonazePAM (KLONOPIN) 0.5 mg tablet Take 0.5 mg by mouth once daily as needed. ARIPiprazole (ABILIFY) 15 mg tablet Take 15 mg by mouth once daily. doxycycline hyclate (VIBRAMYCIN) 100 mg capsule Take 1 capsule by mouth two times a day. doxycycline hyclate (VIBRAMYCIN) 100 mg capsule Take 1 capsule by mouth two times a day. QUEtiapine (SEROQUEL) 25 mg tablet Take 25 mg by mouth as needed. (Patient not taking: Reported on 11/14/2024) docusate sodium (COLACE ORAL) Take 1 tablet by mouth once daily. FAMILY HISTORY[2] SOCIAL HISTORY[3] Review of Systems Musculoskeletal: (+) left knee pain, (+) left knee burning sensation Skin: (+) left knee erythema Psychiatric: (+) nervousness Objective BP 100/64 Pulse 100 Temp 37.2 ?C (98.9 ?F) Resp 18 Wt 53.4 kg (117 lb 11.6 oz) SpO2 98% BMI 20.21 kg/m? Physical Exam Vitals and nursing note reviewed. Constitutional: General: She is not in acute distress. Appearance: Normal appearance. She is normal weight. She is not ill-appearing, toxic-appearing or diaphoretic. HENT: Head: Normocephalic and atraumatic. Right Ear: Ear canal and external ear normal. Left Ear: Ear canal and external ear normal. Nose: Nose normal. No congestion or rhinorrhea. Mouth/Throat: Mouth: Mucous membranes are moist. Pharynx: No oropharyngeal exudate or posterior oropharyngeal erythema. Eyes: General: Right eye: No discharge. Left eye: No discharge. Extraocular Movements: Extraocular movements intact. Conjunctiva/sclera: Conjunctivae normal. Pupils: Pupils are equal, round, and reactive to light. Cardiovascular: Rate and Rhythm: Normal rate and regular rhythm. Pulses: Normal pulses. Heart sounds: Normal heart sounds. No murmur heard. No friction rub. Pulmonary: Effort: Pulmonary effort is normal. No respiratory distress. Breath sounds: Normal breath sounds. No stridor. No wheezing, rhonchi or rales. Chest: Chest wall: No tenderness. Abdominal: General: Abdomen is flat. There is no distension. Palpations: Abdomen is soft. There is no mass. Tenderness: There is no abdominal tenderness. There is no right CVA tenderness, left CVA tenderness, guarding or rebound. Hernia: No hernia is present. Musculoskeletal: General: Tenderness present. No swelling, deformity or signs of injury. Normal range of motion. Cervical back: Normal range of motion and neck supple. No rigidity. Right lower leg: No edema. Left lower leg: No edema. Comments: Left anterior knee with 2 cm erythematous circular area (NO BULLS EYE) No abscess No petechia No crepitus No streaking Full active and passive ROM +neuro +sensation Lymphadenopathy: Cervical: No cervical adenopathy. Skin: General: Skin is warm and dry. Coloration: Skin is not jaundiced or pale. Findings: No bruising, erythema, lesion or rash. Neurological: General: No focal deficit present. Mental Status: She is alert and oriented to person, place, and time. Cranial Nerves: No cranial nerve deficit. Sensory: No sensory deficit. Motor: No weakness. Coordination: Coordination normal. Gait: Gait normal. Psychiatric: Mood and Affect: Mood normal. Behavior: Behavior normal. Thought Content: Thought quang (more content not included)... Normal [facility] CNOVon 11-14-2024 CNOV Office Visit ([facility]) ----- LM ALVARADO ([id number]) 1975 F T Date Time Provider Department 8/9/25 10:45 AM GIDEON ACE During your visit today, we recorded the following information about you: Temperature Pulse Respiration Blood pressure 97 degrees 78/minute 20/minute 100/68 Weight 54.6 kg Gideon Ace APRN.RENEE 11/14/2024 10:58 AM Signed [facility] Isacc Alvarado is a 49 year old female. Patient presents with: Trauma: Insect bite on left knee x 1 day HPI Insect Bite: - Bitten by an unknown insect while camping last night. - Describes initial sensation as burned really bad, like it was on fire. - Area of the bite has enlarged since last night. - Concerns about potential Lyme disease. - Reports significant anxiety. Review of Systems Skin: (+) burning pain at bite site, (+) expanding erythema Psychiatric: (+) anxiety Objective BP 100/68 Pulse 78 Temp 36.1 ?C (97 ?F) Resp 20 Wt 54.6 kg (120 lb 5.9 oz) SpO2 99% BMI 20.66 kg/m? Physical Exam General: No acute distress. Skin: Erythematous area on the leg, blanchable erythema, no evidence of foreign bodies or black areas. { 1. Insect bite of left knee, initial encounter (S80.262A) - Acute insect bite with localized inflammatory response; no evidence of infection or retained foreign body. - Unlikely to be a tick bite or Lyme disease based on presentation and history. - Advised symptomatic management with Motrin or Tylenol and application of ice for comfort. - Educated on expected course of inflammation, signs of infection (red streaking, non-blanchable warmth, continued expansion), and when to seek further care. and Recording using Yu[employer] software for draft documentation of the visit was discussed with the patient/authorized operations support representative; all questions welcomed and answered. Patient/authorized operations support representative agreed to proceed MDM Procedures Allergies As of Date: 11/14/2024 Noted Allergy Reaction FLAGYL (METRONIDAZOLE) 01/20/2024 10 - Anaphylaxis FLAGYL (METRONIDAZOLE) 03/10/2023 10 - Anaphylaxis KETOROLAC TROMETHAMINE 12/26/2019 14 - Other: See Comments Comments: Upsets her bladder NALBUPHINE 12/26/2019 1 - Mental Status Change Comments: Lost consciousness Date Reviewed: 11/14/2024 Reviewed by: Concetta Bermudez MA - Fully Assessed Reason for Visit: Trauma [112] Cmt: Insect bite on left knee x 1 day Primary Visit Diagnosis:Insect bite of left knee, initial encounter [S80.262A, W57.XXXA] Prescriptions as of 11/14/2024 - clonazePAM (KLONOPIN) 0.5 mg tablet Take 0.5 mg by mouth once daily as needed. - ARIPiprazole (ABILIFY) 15 mg tablet Take 15 mg by mouth once daily. - QUEtiapine (SEROQUEL) 25 mg tablet Take 25 mg by mouth as needed. - docusate sodium (COLACE ORAL) Take 1 tablet by mouth once daily. Problem List As Of Date: 11/14/2024 (None) Encounter Status:Closed by GIDEON ACE on 11/14/24 Normal [facility] Emergency Department Summary on 09-18-2024 Emergency Department Summary [facility] Medical Records Department [address] [place] [id number] Emergency Department Summary 09/18/24 MR#: [id number] Acct: [id number] Name: LM ALVARADO Rep #: [id number] : 1975 49 From: Love Emery DO PCP: [facility] Status:[facility] ER Location: ED HPI HPI - Female History of Present Illness Chief Complaint: Female C/O Informant: patient Narrative Narrative: Patient is a 49-year-old female with history of bipolar disorder, PE, anxiety, IBS, migraines as well as right oophorectomy approximately 6 weeks ago. Patient states she was picking up a heavy bag of trash when she suddenly felt a spasm in her vaginal area. This happened around 1230. She denies any feeling of bulging or fullness. Is not recently had any issues with defecation or urination. Came in for further evaluation. [facility] Medical History Wears glasses MRSA infection Bipolar disorder Marijuana use Arthritis Bladder disease Pulmonary embolism Migraine headache Loose, teeth Smoker Interstitial cystitis Irritable bowel syndrome History of pulmonary embolism Anxiety Home Medications ???Medication ???Instructions ???Recorded ???Last Taken ???Type aripiprazole 20 mg tablet 20 mg PO DAILY 06/04/24 08/30/24 H istory clonazepam 0.5 mg tablet 0.5 mg PO QHS PRN anxiety 06/04/24 08/30/24 History cyclobenzaprine 10 mg tablet 10 mg PO TID PRN muscle spasm #30 07/15/24 08/09/24 Rx tabs diazepam 2 mg tablet (Valium) 2 mg PO BID PRN muscle spasm #14 0 09/03/24 Unknown Rx tabs ibuprofen 400 mg tablet 400 mg PO Q8H 09/10/24 Unknown His tory oxycodone-acetaminophen 5 mg-325 1 tab PO Q4H PRN 09/10/24 Unknown History mg tablet (Percocet) Allergy/AdvReac Type Severity Reaction Status Date / Time metronidazole (From Flag) Allergy Severe Anaphylaxis Verified 09/18/24 13:09 naproxen AdvReac Mild Nausea Verified 09/18/24 13:09 Family History Grandmother Ovarian cancer, Onset Age: 69 Aunt Breast cancer, Onset Age: 45 Surgical History Status post bilateral salpingectomy History of ovarian cystectomy S/P right oophorectomy History of endometrial ablation Hx of tubal ligation History of back surgery H/O: hysterectomy Social History household members: spouse housing: house number of children: 3 current occupational status: employed current occupation: [employer] Smoking Status: Current every day smoker tobacco type: cigarettes and e-cigarettes do you feel safe at home: Yes additional social history: Boyfriend - Terence EAMON KNUTSON ED Constitutional Constitutional ED: Denies chills or fever(s) Respiratory/Chest Respiratory/Chest: Denies cough Gastrointestinal Gastrointestinal: Denies nausea or vomiting Musculoskeletal Musculoskeletal: Denies arthralgias or myalgias Psychiatric Psychiatric: Reports anxiety EXAM Physical Exam Const Vital Signs: 09/18/24 13:07 Temperature 97.8 F Temperature Source Oral Pulse Rate 90 Respiratory Rate 18 Blood Pressure 97/62 Blood Pressure Mean 73 Pulse Ox 98 Oxygen Delivery Method Room Air Positive well nourished and well developed General Appearance ED: well developed and NAD HEENT Reports moist mucous membranes Chest Wall inspection of chest normal Resp normal respiratory effort and clear to auscultation bilaterally Cardio regular rate and regular rhythm GI normal to inspection, nondistended, normoactive bowel sounds, soft to palpation and non-tender GI Narrative: No hernias appreciated. Narrative: Chaperoned pelvic exam performed. Normal external genitalia. Normal internal pelvic exam. Physiologic white discharge present. Normal-appearing cervix. No cervical motion tenderness present. On coughing no prolapse appreciated. No blood present. Extremity normal to inspection Psych mental status grossly normal Skin no rashes or lesions noted MDM MDM MDM Narrative Medical decision making narrative: Patient evaluated for sudden onset of spasm-like pain in her vagina after picking up a heavy bag. She had recent laparoscopic salpingectomy/oophorectom y and is concerned this could be related. Patient is quite well-appearing on exam. Vital signs are normal. She has a benign physical exam including abdominal exam and pelvic exam. I do not appreciate any hernia. She does not have any continued pain. She is given a dose of Flexeril and Tylenol in the ER for her symptoms. Discharge Plan Triage Chief Complaint: Female C/O ED Provider: Love Emery Dx/Rx/DC Orders C (more content not included)... Normal [facility] [employer] Operator Office Visit Reporton 09-10-2024 [employer] Operator Office Visit Report [facility] [address], [address] [place] [address] OFFICE VISIT Date of Service: 09/10/24 MR#: [id number] Acct: [id number] Name: LM ALVARADO Rep #: [id number] : 1975 Provider: Dr. Treasure viera MD Age/Sex: 49/F Location: [facility] Status: Signed Intake Vital Signs 08/30/24 11:07 09/03/24 09:32 09/08/24 10:47 09/10/24 08:30 09/10/24 08:30 Height 5 ft 4 in 5 ft 4 in 5 ft 4 in 5 ft 4 in 5 ft 4 in Weight: 117 lb 8 oz BMI 20.1 BP 107/72 Intake Visit Reasons: 2 week post-op Inspector Crystal Required: No Is patient in pain?: No Allergies metronidazole (From Flagyl) Allergy (Severe, Verified 09/10/24 08:30) Anaphylaxis naproxen Adverse Reaction (Mild, Verified 09/10/24 08:39) Nausea Medications ???Medication ???Instructions ???Recorded ???Confirmed ???Type aripiprazole 20 mg tablet 20 mg PO DAILY 06/04/24 09/10/24 H istory clonazepam 0.5 mg tablet 0.5 mg PO QHS PRN anxiety 06/04/24 09/10/24 History cyclobenzaprine 10 mg tablet 10 mg PO TID PRN muscle spasm #30 07/15/24 09/10/24 Rx tabs diazepam 2 mg tablet (Valium) 2 mg PO BID PRN muscle spasm #14 0 09/03/24 09/10/24 Rx tabs ibuprofen 400 mg tablet 400 mg PO Q8H 09/10/24 09/10/24 Hi story oxycodone-acetaminophen 5 mg-325 1 tab PO Q4H PRN 09/10/24 09/10/24 History mg tablet (Percocet) Post menopausal: No Patient : No : No PFSH Medical History Wears glasses MRSA infection Bipolar disorder Marijuana use Arthritis Bladder disease Pulmonary embolism Migraine headache Loose, teeth Smoker Interstitial cystitis Irritable bowel syndrome History of pulmonary embolism Anxiety Surgical History Status post bilateral salpingectomy History of ovarian cystectomy S/P right oophorectomy History of endometrial ablation Hx of tubal ligation History of back surgery H/O: hysterectomy Family History Grandmother Ovarian cancer, Onset Age: 69 Aunt Breast cancer, Onset Age: 45 Social History household members: spouse housing: house number of children: 3 current occupational status: employed current occupation: [employer] Smoking Status: Current every day smoker tobacco type: cigarettes and e-cigarettes do you feel safe at home: Yes additional social history: Boyfriend - Terence GARDNER 2 week post-op Details: LM ALVARADO is a 49 year old who presents for followup, significant improvement, reduction in seroma size and pain greatly improved, patient ambulating well and tolerating normal activities. she denies any discharge form the area and denies any fevers. History 6 Elective abortions 2 Hx Para 3 Spontaneous abortions 1 Hx # Term Pregnancies Ectopic pregnancies Hx # Pregnancies Multiple births # of living children 3 Past Pregnancies Del. Date Name GA/Weeks Outcome Route Bth Weight Gen Labor Lgth Anesthesia Del Locatn Provider FOB Unknown 1994 Vinod live - full term Unknown 1996 Araceli live - Unknown 2002 Marely live - ROS Const Constitutional: Reports system reviewed and no additional complaints, except as documented GI GI: Denies abdominal pain, cramping, nausea or vomiting : Denies pelvic pain, urinary frequency, urinary incontinence, urinary urgency, vaginal discharge, vaginal dryness or vaginal odor Exam Const General: cooperative, healthy appearing, comfortable and no acute distress GI Inspection: normal to inspection Palpation: soft and nontender Other: Incisions: C/D/I non tender and seroma is 1/2 the size it was and mildly fluctuant no erythema or induration Coding Level of Care Code No Charge Diagnoses Seroma Assessment and Plan Assessment and Plan (1) Seroma: Status: Acute Comment: Patient is 49-year-old female status post takeback surgery for exploration and control of abdominal wall hematoma. Postoperatively she has dealt with persistent pain to this area but is pleased to report today that her pain experiences significantly improved over the past 1 week. Further, she confirms decrease in the size of the area of concern. Indeed, on exam I find a well-healing surgical site without concern for infection. When I applied a bedside ultrasound to the area identified a subcutaneous fluid pocket measuring 5.4 x 3.6 x 1.1 cm. This is significantly smaller than the 10.3 x 5.6 cm fluid collection identified by radiology at patient's last CT imaging on 08/28/2024. I had a lengthy conversation with pa (more content not included)... Normal [facility] Surgery Visit Reporton 09-08 Surgery Visit Report [facility] [address] [place] [address]. [address] [place] [address] OFFICE VISIT Date of Service: 09/08/24 MR#: [id number] Acct: [id number] Name: LM ALVARADO Rep #: [id number] : 1975 Provider: Dr. Jak guillen MD Age/Sex: 49/F Location: [facility] Status: Signed Intake Vital Signs 09/03/24 09:32 09/08/24 10:47 Height 5 ft 4 in 5 ft 4 in Weight: 118 lb BMI 20.2 BP 128/76 H Blood Pressure Location Rt brachial Position Sitting Respiration 19 H Pulse 108 H Pulse Source Monitor Pulse Oximetry (%) 98 Oxygen Delivery Method room air Intake Visit Reasons: DRAIN SEROMA Chief Complaint: drain seroma Is patient in pain?: Yes (has been having d/t seroma/previous surgery, pain meds help) Pain scale (1-10): 6 Allergies metronidazole (From Flagyl) Allergy (Severe, Verified 09/08/24 10:49) Anaphylaxis Medications ???Medication ???Instructions ???Recorded ???Confirmed ???Type aripiprazole 20 mg tablet 20 mg PO DAILY 06/04/24 09/08/24 H istory clonazepam 0.5 mg tablet 0.5 mg PO QHS PRN anxiety 06/04/24 09/08/24 History cyclobenzaprine 10 mg tablet 10 mg PO TID PRN muscle spasm #30 07/15/24 09/08/24 Rx tabs naproxen 500 mg tablet 500 mg PO BID PRN Pain 08/28/24 History oxycodone 5 mg tablet 5 mg PO Q6H 3 days #12 tabs 09/08/24 Rx diazepam 2 mg tablet (Valium) 2 mg PO BID PRN muscle spasm #14 0 09/03/24 09/08/24 Rx tabs oxycodone-acetaminophen 5 mg-325 1 tab PO Q4H PRN pain 7 days #28 0 09/03/24 09/08/24 Rx mg tablet (Percocet) tabs Subjective Details: Patient presents following local exploration of abdominal wall with hematoma evacuation on 08/25/2024. Since hospital discharge they have been doing experiencing episodes of pain and have had 2 separate ER visits as well as scheduled visits with [employer] OPERATOR. However, patient is somewhat relieved to report today that her pain has gone down a lot in the past 1 week. She also notes that the affected area has decreased in size. She denies any redness. 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 Objective Details: Constitutional: Tearful, anxious Abdomen: Right lower quadrant operative site with soft tissue swelling and subtle fluctuance. There is no surrounding erythema or drainage. Steri-Strips remain intact across the wound. Ultrasound is applied to the area and identified a 5.4 x 3.6 x 1.1 cm area of hypoechoic character representing a subcutaneous fluid accumulation. Coding Level of Care Code Global Post Op Diagnoses Seroma [facility] Medical History Wears glasses MRSA infection Bipolar disorder Marijuana use Arthritis Bladder disease Pulmonary embolism Migraine headache Loose, teeth Smoker Interstitial cystitis Irritable bowel syndrome History of pulmonary embolism Anxiety Surgical History Status post bilateral salpingectomy History of ovarian cystectomy S/P right oophorectomy History of endometrial ablation Hx of tubal ligation History of back surgery H/O: hysterectomy Family History Grandmother Ovarian cancer, Onset Age: 69 Aunt Breast cancer, Onset Age: 45 Social History household members: spouse housing: house number of children: 3 current occupational status: employed current occupation: [employer] Smoking Status: Current every day smoker tobacco type: cigarettes and e-cigarettes do you feel safe at home: Yes additional social history: Boyfriend - Terence Female Reproductive History Menstrual Ab induced: 2 Ab spontaneous: 1 Assessment and Plan (No Qualifiers) Assessment and Plan (1) Seroma: Status: Acute Comment: Patient is 49-year-old female status post takeback surgery for exploration and control of abdominal wall hematoma. Postoperatively she has dealt with persistent pain to this area but is pleased to report today that her pain experiences significantly improved over the past 1 week. Further, she confirms decrease in the size of the area of concern. Indeed, on exam I find a well-healing surgical site without concern for infection. When I applied a bedside ultrasound to the area identified a subcutaneous fluid pocket measuring 5.4 x 3.6 x 1.1 cm. This is significantly smaller than the 10.3 x 5.6 cm fluid collection identified by radiology at patient's last CT imaging on 08/28/2024. I had a lengthy conversation with patient today discussing continued watchful waiting versus intervention using aspiration plus minus seroma catheter insertion. P (more content not included)... 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 Treasure viera MD Age/Sex: 49/F Location: [facility] Status: Signed Intake Vital Signs 08/30/24 11:07 09/03/24 09:26 09/03/24 09:32 Height 5 ft 4 in 5 ft 4 in 5 ft 4 in Weight: 120 lb 8 oz BMI 20.7 BP 113/70 Intake Visit Reasons: Significant post-op pain still Inspector Crystal Required: No Is patient in pain?: Yes (right lower pelvic pain, especially when sitting and standing) Allergies metronidazole (From Flagyl) Allergy (Severe, Verified 09/03/24 09:26) Anaphylaxis Medications ???Medication ???Instructions ???Recorded ???Confirmed ???Type aripiprazole 20 mg tablet 20 mg PO DAILY 06/04/24 09/03/24 H istory clonazepam 0.5 mg tablet 0.5 mg PO QHS PRN anxiety 06/04/24 09/03/24 History cyclobenzaprine 10 mg tablet 10 mg PO TID PRN muscle spasm #30 07/15/24 09/03/24 Rx tabs enoxaparin 40 mg/0.4 mL 40 mg (0.4 mL) SQ DAILY 14 days 09/03/24 Rx subcutaneous syringe (Lovenox) #20 mL naproxen 500 mg tablet 500 mg PO BID PRN Pain 08/28/24 History oxycodone 5 mg tablet 5 mg PO Q6H 3 days #12 tabs 09/03/24 Rx diazepam 2 mg tablet (Valium) 2 mg PO BID PRN muscle spasm #14 0 09/03/24 09/03/24 Rx tabs oxycodone-acetaminophen 5 mg-325 1 tab PO Q4H PRN pain 7 days #28 0 09/03/24 09/03/24 Rx mg tablet (Percocet) tabs Is last menstrual period known: No Patient : No : No PFSH Medical History Wears glasses MRSA infection Bipolar disorder Marijuana use Arthritis Bladder disease Pulmonary embolism Migraine headache Loose, teeth Smoker Interstitial cystitis Irritable bowel syndrome History of pulmonary embolism Anxiety Surgical History Status post bilateral salpingectomy History of ovarian cystectomy S/P right oophorectomy History of endometrial ablation Hx of tubal ligation History of back surgery H/O: hysterectomy Family History Grandmother Ovarian cancer, Onset Age: 69 Aunt Breast cancer, Onset Age: 45 Social History household members: spouse housing: house number of children: 3 current occupational status: employed current occupation: [employer] Smoking Status: Current every day smoker tobacco type: cigarettes and e-cigarettes do you feel safe at home: Yes additional social history: Boyfriend - Terence JJ Significant post-op pain still Details: LM ALVARADO is a 49 year old who presents for fu abdominal wall hematoma. she is having muscle spasms and pain still i the area, no redness or erythema in the inicison, no feversm no drainage. has ecchymoses in right thigh under the area, still has a lump in the area with a reaccumulation of some of the hematoma but it is stable on repeat imaging. does not appear like an abscess at this time. History 6 Elective abortions 2 Hx Para 3 Spontaneous abortions 1 Hx # Term Pregnancies Ectopic pregnancies Hx # Pregnancies Multiple births # of living children 3 Past Pregnancies Del. Date Name GA/Weeks Outcome Route Bth Weight Gen Labor Lgth Anesthesia Del Locatn Provider FOB Unknown 1994 Vinod live - full term Unknown 1996 Araceli live - Unknown 2002 Marely live - ROS GI GI: Reports system reviewed and no additional complaints, except as documented : Reports system reviewed and no additional complaints, except as documented Exam Const General: cooperative, healthy appearing and comfortable GI Other: right incision intact dry no erythema steris intact, small healing echymoses. underlying palpable hematoma ocnsistent with imaging size. resolving ecchymoses on right thigh. Coding Level of Care Code No Charge Diagnoses Rectus sheath hematoma S30.1XXA Post-op pain G89.18 Assessment and Plan Assessment and Plan (1) Rectus sheath hematoma: Status: Acute Comment: percocet given again and small script for valium, reviewed improtance to not take together reviewed risks and importance. (2) Post-op pain: Status: Acute Medications: New diazepam (Valium) do not take within 4 hours of the percocet 2 mg PO BID PRN 14 tabs 0RF muscle spasm Refilled oxycodone-acetaminophen 5-325 mg (Percocet) 1 TAB PO Q4H 7 days PRN 28 tabs 0RF pain S30.1XXA - Contusion of abdominal wall, initial encounter Plan (more content not included)... Normal [facility] Absolute lymphocyte countOrd ered By: Love Emery on 08-30-2024 Lymphocytes Auto (Unsp spec) [#/Vol] 1.30 10*3/uL 0.83-4.51 [facility] Absolute neutrophil countOrd ered By: Love Emery on 08-30-2024 Neutrophils (Bld) [#/Vol] 5.5 10*3/uL 2.0-7.7 [facility] Anion gap in Serum or Plasma Ordered By: Love Emery on 08-30-2024 Anion gap [Moles/Vol] 9 mmol/L 5-15 [facility] Automated lymphocyte count a s percentage of total leukocytesOrdered By: Love Emery on 08-30-2024 Lymphocytes/100 WBC Auto (Unsp spec) 17.4 % Low 19-41 [facility] BUN/creatinine ratioOrdered By: Love Emery on 08-30-2024 Urea nitrogen/Creatinine [Mass ratio] 12.6 mg/mg 10-20 [facility] Basic Metabolic Profile (BMP )on 08-30-2024 BUN/CRE 12.6 RATIO Normal - [facility] Comment on above: Performed By: #### L 500.2500, L100.0100 #### [facility] [address] [place], [address] Calcium [Mass/Vol] 8.9 mg/dL Normal 7.6-11.0 [facility] Comment on above: Performed By: #### L 500.2500, L100.0100 #### [facility] [address] [place], [address] Chloride [Moles/Vol] 105 mmol/L Normal 98-108 [facility] Comment on above: Performed By: #### L 500.2500, L100.0100 #### [facility] [address] [place], [address] CO2 [Moles/Vol] 25.8 mmol/L Normal 21.0-32.0 [facility] Comment on above: Performed By: #### L 500.2500, L100.0100 #### [facility] [address] [place], [address] Creatinine [Mass/Vol] 0.76 mg/dL Normal 0.70-1.20 [facility] Comment on above: Performed By: #### L 500.2500, L100.0100 #### [facility] [address] [place], [address] ECRCL 77.32 ml/min Normal 50-250 [facility] Comment on above: Performed By: #### L 500.2500, L100.0100 #### [facility] [address] [place], [address] GAP 9 Normal 5-15 [facility] Comment on above: Performed By: #### L 500.2500, L100.0100 #### [facility] [address] [place], [address] GFR/1.73 sq M.predicted among non-blacks MDRD (S/P/Bld) [Vol rate/Area] 96 mL/min/{1.73_m2} Normal >60 [facility] Comment on above: Result Comment: mL/m in/1.73m2 CKD-EPI Creatinine Equation (2020) Performed By: #### L 500.2500, L100.0100 #### [facility] [address] [place], [address] Glucose [Mass/Vol] 87 mg/dL Normal 70-99 [facility] Comment on above: Performed By: #### L 500.2500, L100.0100 #### [facility] [address] [place], [address] Potassium [Moles/Vol] 4.3 mmol/L Normal 3.3-5.1 [facility] Comment on above: Result Comment: Hemo lysis present, Results??could be affected. ?? Performed By: #### L 500.2500, L100.0100 #### [facility] [address] [place], [address] Sodium [Moles/Vol] 140 mmol/L Normal 133-145 [facility] Comment on above: Performed By: #### L 500.2500, L100.0100 #### [facility] [address] [place], [address] Urea nitrogen [Mass/Vol] 10 mg/dL Normal 4-19 [facility] Comment on above: Performed By: #### L 500.2500, L100.0100 #### [facility] [address] [place], [address] Basophil percentageOrdered B y: Love Emery on 08-30-2024 Basophils/100 WBC (Bld) 0.3 % 0-1 [facility] Bilirubin Test strip Ql (U)O rdered By: Love Emery on 08-30-2024 Bilirubin Ql (U) Negative Negative [facility] CBC W/Diff, Automatedon 08-07 Absolute Lymph 1.30 X10 3/uL Normal 0.83-4.51 [facility] Comment on above: Performed By: #### L 500.2500, L100.0100 #### [facility] [address] [place], [address] Absolute Neut 5.5 X10 3/uL Normal 2.0-7.7 [facility] Comment on above: Performed By: #### L 500.2500, L100.0100 #### [facility] [address] [place], [address] Basophils/100 WBC (Bld) 0.3 % Normal 0-1 [facility] Comment on above: Performed By: #### L 500.2500, L100.0100 #### [facility] [address] [place], [address] Eosinophils/100 WBC (Bld) 1.9 % Normal 0-5 [facility] Comment on above: Performed By: #### L 500.2500, L100.0100 #### [facility] [address] [place], [address] Erythrocyte distribution width (RBC) [Ratio] 13.0 % Normal 11.6-14.6 [facility] Comment on above: Performed By: #### L 500.2500, L100.0100 #### [facility] [address] [place], [address] Hematocrit (Bld) [Volume fraction] 33.5 % Low 37-47 [facility] Comment on above: Performed By: #### L 500.2500, L100.0100 #### [facility] [address] [place], [address] Hemoglobin (Bld) [Mass/Vol] 11.8 g/dL Low 12.0-15.0 [facility] Comment on above: Performed By: #### L 500.2500, L100.0100 #### [facility] [address] [place], [address] IG% 0.300 Normal 0.0-0.9 [facility] Comment on above: Result Comment: IG% - Immature Granulocytes (promyelocytes, myelocytes and metamyelocytes) > 1% indicates that a LEFT SHIFT is Present. Performed By: #### L 500.2500, L100.0100 #### [facility] [address] [place], [address] Lymphocytes/100 WBC (Bld) 17.4 % Low 19-41 [facility] Comment on above: Performed By: #### L 500.2500, L100.0100 #### [facility] [address] [place], [address] MCH (RBC) [Entitic mass] 32.8 pg High 27.0-32.0 [facility] Comment on above: Performed By: #### L 500.2500, L100.0100 #### [facility] [address] [place], [address] MCHC (RBC) [Mass/Vol] 35.2 g/dL Normal 32-36 [facility] Comment on above: Performed By: #### L 500.2500, L100.0100 #### [facility] [address] [place], [address] MCV (RBC) [Entitic vol] 93.1 fL Normal 81-99 [facility] Comment on above: Performed By: #### L 500.2500, L100.0100 #### [facility] [address] [place], [address] Monocytes/100 WBC (Bld) 6.7 % Normal 0-10 [facility] Comment on above: Performed By: #### L 500.2500, L100.0100 #### [facility] [address] [place], [address] Neutrophils/100 WBC (Bld) 73.4 % High 47-70 [facility] Comment on above: Performed By: #### L 500.2500, L100.0100 #### [facility] [address] [place], [address] Nucleated RBC (Bld) [#/Vol] 0 10*3/uL Normal 0-5 [facility] Comment on above: Performed By: #### L 500.2500, L100.0100 #### [facility] [address] [place], [address] Platelet mean volume (Bld) [Entitic vol] 10.0 fL Normal 6.2-12.0 [facility] Comment on above: Performed By: #### L 500.2500, L100.0100 #### [facility] [address] [place], [address] Platelets (Bld) [#/Vol] 249 10*3/uL Normal 150-450 [facility] Comment on above: Performed By: #### L 500.2500, L100.0100 #### [facility] [address] [place], [address] RBC (Bld) [#/Vol] 3.60 10*6/uL Low 4.2-5.[address] [facility] Comment on above: Performed By: #### L 500.2500, L100.0100 #### [facility] [address] [place], [address] RDW SD 44.6 fl High 35.1-43.9 [facility] Comment on above: Performed By: #### L 500.2500, L100.0100 #### [facility] [address] [place], [address] WBC (Bld) [#/Vol] 7.5 10*3/uL Normal 4.4-11.0 [facility] Comment on above: Performed By: #### L 500.2500, L100.0100 #### [facility] [address] [place], [address] Carbon dioxide, total [Moles /volume] in Central venous bloodOrdered By: Love Emery on 08-30-2024 CO2 [Moles/Vol] 25.8 mmol/L 21.0-32.0 [facility] Chloride assayOrdered By: Carlos Emery on 08-30-2024 Chloride [Moles/Vol] 105 mmol/L 98-108 [facility] Emergency Department Summary on 08-30-2024 Emergency Department Summary [facility] Medical Records Department [address] [place] [address] Emergency Department Summary 08/30/24 MR#: [id number] Acct: [id number] Name: LM ALVARADO Rep #: [id number] : 1975 49 From: Love Emery DO PCP: Care Physician,No Primary Status:DEP ER Location: ED HPI HPI - GI History of Present Illness Chief Complaint: Abd Pain Informant: patient Narrative Narrative: Patient is a 49-year-old female with recent right oophorectomy (performed on 08/25/2024 (with postoperative course complicated by abdominal wall hematoma and subsequently pain control. She is presenting with continued pain in her right lower abdomen is not controlled with her home oxycodone and naproxen. She states that medicine is not touching her pain. Patient is on prophylactic Lovenox at home because of history of postoperative PE/VTE. In addition patient states that she continues to have the pain but it does not sound like it is particularly worsening but she cannot get it under control. She states she is been very emotional and crying a lot and she is not sure if that has to do with an ovary being removed. Of note she still has her left ovary. She also not had a bowel movement for the past 5 days. She is passing gas and is taking MiraLAX daily. She was seen in our ER 2 days ago for postoperative pain complaints as well. States the pain is worse in her right pelvis area. She denies any urinary symptoms states she is actually urinating every 2 hours. She denies any fever or chills. Denies any chest pain or shortness of breath. She was having right shoulder pain which she attributes to air in her abdomen but notes that has resolved. Review of ER visit from 08/28??? With identical presentation. Vital signs normal/stable. CT of the abdomen and pelvis with IV contrast obtained which showed a right hypodense lesion in the subcutaneous tissue of the right lower abdomen measuring 10 x 5 cm???seroma versus abscess per radiology. Given no infectious symptoms and known postoperative hematoma felt to be seroma/hematoma and not abscess clinically. Hemoglobin stable. No leukocytosis. Case was discussed with CLUTCH OPERATOR. Plan for outpatient follow-up this coming Saturday. Discharged home. [facility] Medical History Wears glasses MRSA infection Bipolar disorder Marijuana use Arthritis Bladder disease Pulmonary embolism Migraine headache Loose, teeth Smoker Interstitial cystitis Irritable bowel syndrome History of pulmonary embolism Anxiety Home Medications ???Medication ???Instructions ???Recorded ???Last Taken ???Type aripiprazole 20 mg tablet 20 mg PO DAILY 06/04/24 08/30/24 H istory clonazepam 0.5 mg tablet 0.5 mg PO QHS PRN anxiety 06/04/24 08/30/24 History cyclobenzaprine 10 mg tablet 10 mg PO TID PRN muscle spasm #30 07/15/24 08/09/24 Rx tabs enoxaparin 40 mg/0.4 mL 40 mg (0.4 mL) SQ DAILY 14 days 08/29/24 Rx subcutaneous syringe (Lovenox) #20 mL oxycodone-acetaminophen 5 mg-325 1 tab PO Q4H PRN pain 7 days #20 0 08/25/24 08/30/24 Rx mg tablet (Percocet) tabs naproxen 500 mg tablet 500 mg PO BID PRN Pain 08/28/24 History oxycodone 5 mg tablet 5 mg PO Q6H 3 days #12 tabs Unknown Rx Allergy/AdvReac Type Severity Reaction Status Date / Time metronidazole (From Flagyl) Allergy Severe Anaphylaxis Verified 08/30/24 11:07 Family History Grandmother Ovarian cancer, Onset Age: 69 Aunt Breast cancer, Onset Age: 45 Surgical History Status post bilateral salpingectomy History of ovarian cystectomy S/P right oophorectomy History of endometrial ablation Hx of tubal ligation History of back surgery H/O: hysterectomy Social History household members: spouse housing: house number of children: 3 current occupational status: employed current occupation: [employer] Smoking Status: Current every day smoker tobacco type: cigarettes and e-cigarettes do you feel safe at home: Yes additional social history: Boyfriend - Terence KNUTSON ROS ED Constitutional Constitutional ED: Denies chills or fever(s) Cardiovascular Cardiovascular: Denies chest pain Respiratory/Chest Respiratory/Chest: Denies cough or dyspnea Gastrointestinal Gastrointestinal: Reports abdominal pain and constipation; Denies nausea or vomiting Musculoskeletal Musculoskeletal: Denies arthralgias or myalgias Integumentary Reports other Details: Bruising around port sites on abdomen???no other skin changes reported. No drainage from surgical incisions per patient. Neurologic Neurologic: Denies weakness Psychiatric Psychiatric (more content not included)... Normal [facility] Eosinophil percentageOrdered By: Love Emery on 08-30-2024 Eosinophils/100 WBC (Bld) 1.9 % 0-5 [facility] Erythrocyte distribution wid th ratioOrdered By: Love Emery on 08-30-2024 Erythrocyte distribution width (RBC) [Ratio] 13.0 % 11.6-14.6 [facility] Erythrocyte distribution wid th standard deviationOrdered By: Love Emery on 08-30-2024 Erythrocyte distribution width (RBC) [Ratio] 44.6 fl High 35.1-43.9 [facility] Glomerular filtration rate ( GFR) estimation/1.73 sq m using serum, plasma, or whole bOrdered By: Love Emery on 08-30-2024 GFR/1.73 sq M.predicted among non-blacks MDRD (S/P/Bld) [Vol rate/Area] 96 mL/min/{1.73_m2} >60 [facility] Comment on above: mL/min/1.73m2 CKD-EP I Creatinine Equation (2020) Hematocrit Auto (Bld) [Volum e fraction]Ordered By: Love Emery on 08-30-2024 Hematocrit (Bld) [Volume fraction] 33.5 % Low 37-47 [facility] Hemoglobin measurementOrdere d By: Love Emery on 08-30-2024 Hemoglobin (Bld) [Mass/Vol] 11.8 g/dL Low 12.0-15.0 [facility] Immature granulocytes/100 WB C Auto (Bld)Ordered By: Love Emery on 08-30-2024 Immature granulocytes/100 WBC (Bld) 0.300 % 0.0-0.9 [facility] Comment on above: IG% - Immature Granu locytes (promyelocytes, myelocytes and metamyelocytes) > 1% indicates that a LEFT SHIFT is Present. Ketones Test strip Ql (U)Ord ered By: Love Emery on 08-30-2024 Ketones Ql (U) Negative Negative [facility] MCV (mean corpuscular volume ) determinationOrdered By: Love Emery on 08-30-2024 MCV (RBC) [Entitic vol] 93.1 fL 81-99 [facility] Mean corpuscular hemoglobin (MCH) determinationOrdered By: Love Emery on 08-30-2024 MCH (RBC) [Entitic mass] 32.8 pg High 27.0-32.0 [facility] Mean corpuscular hemoglobin concentration (MCHC) determinationOrdered By: Love Emery on 08-30-2024 MCHC (RBC) [Mass/Vol] 35.2 g/dL 32-36 [facility] Comment on above: Delta: 33.4 on 08/28 Mean platelet volume determi nationOrdered By: Love Emery on 08-30-2024 Platelet mean volume (Bld) [Entitic vol] 10.0 fL 6.2-12.0 [facility] Microscopic analysis of urin e for red blood cells (RBC)Ordered By: Love Emery on 08-30-2024 Microscopic analysis of urine for red blood cells (RBC) 0 SEEN /hpf 0-5 [facility] Monocyte percentageOrdered B y: Love Emery on 08-30-2024 Monocytes/100 WBC (Bld) 6.7 % 0-10 [facility] Mucus LM Ql (Urine sed)Order ed By: Love Emery on 08-30-2024 Mucus Ql (Urine sed) 0 SEEN /hpf [facility] Neutrophil percentageOrdered By: Love Emery on 08-30-2024 Neutrophils/100 WBC (Bld) 73.4 % High 47-70 [facility] Nitrite Test strip Ql (U)Ord ered By: Love Emery on 08-30-2024 Nitrite Ql (U) Negative Negative [facility] Nucleated red blood cell per centageOrdered By: Love Emery on 08-30-2024 Nucleated RBC/100 WBC (Bld) [Ratio] 0 % 0-5 [facility] Pelvis WITH IV Contraston Pelvis WITH IV Contrast [facility] [address] [place], [place] [address] Pelvis WITH IV Contrast MR#: [id number] Acct: [id number] Name: LM ALVARADO Rep #: [id number] : 1975 F 49 From: Carlos Berumen DO PCP: Care Physician,No Primary Status: REG ER Study: Pelvis WITH IV Contrast Date of Exam: 08/30/24 Exam# [id number] Ordering Dr: Love Emeyr DO PROCEDURE: PELVIS WITH IV CONTRAST REASON FOR EXAM: PAIN, ABD WALL HEMATOMA. Postop oophorectomy on 08/2024 history also includes hysterectomy and salpingo oophorectomy ovarian cystectomy but does not say exactly in fall this was done on 08 25 2024 . TECHNIQUE: Pelvis CT with intravenous contrast. CONTRAST: Isovue 370 VOLUME: 87 mL IV One or more dose reduction techniques were used (e.g., Automated exposure control, adjustment of the mA and/or kV according to patient size, use of iterative reconstruction technique). RADIATION DOSE SUMMARY: CTDlvol: 24.64 mGy DLP: 855.31 mGycm COMPARISON: 2024 and others FINDINGS: Limited inclusion of liver, spleen, gallbladder and kidneys. Simple cysts right kidney requiring no follow-up. Otherwise no significant findings. Bladder: Unremarkable Reproductive Organs: Status post hysterectomy. Pockets of free fluid deep in the pelvis and cul-de-sac and presacral spaces Bowel: Unremarkable. Appendix: A normal appendix is identified. Lymph nodes: No lymph nodes are identified that might be considered pathologic by size criteria Vasculature: Unremarkable. Peritoneum / Retroperitoneum: Postoperative fluid or seroma the pelvis Subcutaneous soft tissue swelling of the lateral right abdomen and right lower abdominal quadrant. Hypodense lesion of the subcutaneous tissues of the anterior right lower abdomen measuring up to 10.3 x 5.6 cm. This could be a seroma related to recent surgery. Evolving abscess cannot be entirely excluded due to time of surgery. Pneumoperitoneum, likely postoperative changes. Bones: No aggressive bone lesions CT/Pelvis WITH IV Contrast IMPRESSION: Right lower quadrant skin wound, not significantly changed from August 28. If there is concern for abscess based on pain and redness consider aspiration for culture and sensitivity Postoperative fluid or seroma with pockets of fluid deep in the pelvis Reading [facility] CC: Dr. Love Emery, DO; No Primary Care Physician Senior Technical Support Analyst: Signed Normal [facility] Platelet countOrdered By: Carlos Emery on 08-30-2024 Platelets (Bld) [#/Vol] 249 10*3/uL 150-450 [facility] Potassium measurement (mass/ volume)Ordered By: Love Emery on 08-30-2024 Potassium (Unsp spec) [Mass/Vol] 4.3 mmol/L 3.3-5.1 [facility] Comment on above: Hemolysis present, R esults could be affected. Protein Test strip Ql (U)Ord ered By: Love Emery on 08-30-2024 Protein Ql (U) 15 mg/dl High Negative [facility] RBC Auto (Bld) [#/Vol]Ordere d By: Love Emery on 08-30-2024 RBC (Bld) [#/Vol] 3.60 10*6/uL Low 4.2-5.[address] [facility] Serum creatinine measurement (mass/volume)Ordered By: Love Emery on 08-30-2024 Creatinine [Mass/Vol] 0.76 mg/dL 0.70-1.20 [facility] Serum glucose measurement (m ass/volume)Ordered By: Love Emery on 08-30-2024 Glucose [Mass/Vol] 87 mg/dL 70-99 [facility] Serum or plasma calcium dev urement (mass/volume)Ordered By: Love Emery on 08-30-2024 Calcium [Mass/Vol] 8.9 mg/dL 7.6-11.0 [facility] Serum or plasma urea nitroge n measurement (mass/volume)Ordered By: Love Emery on 08-30-2024 Urea nitrogen [Mass/Vol] 10 mg/dL 4-19 [facility] Sodium levelOrdered By: Adam Emery on 08-30-2024 Sodium [Moles/Vol] 140 mmol/L 133-145 [facility] Squamous epithelial cells de tection in urine sediment by light microscopyOrdered By: Love Emery on 08-30-2024 Epithelial cells.squamous LM Ql (Urine sed) 5-10 SEEN /hpf 5-10 [facility] Urinalysis, Completeon 08-30 TRICHOMONAS 0-5 SEEN Normal None Seen [facility] Comment on above: Order Comment: CLEAN CATCH Performed By: #### L 400.0001 #### [facility] [address] [place], [place], [id number] BACTERIA 1+ /hpf Normal None Seen [facility] Comment on above: Order Comment: CLEAN CATCH Performed By: #### L 400.0001 #### [facility] [address] [place], [address] EPI,SQUAMOUS 5-10 SEEN Normal 5-10 [facility] Comment on above: Order Comment: CLEAN CATCH Performed By: #### L 400.0001 #### [facility] [address] [place], [address] WBC 0-5 SEEN Normal 0-5 [facility] Comment on above: Order Comment: CLEAN CATCH Performed By: #### L 400.0001 #### [facility] [address] [place], [address] Mucus Ql (Urine sed) 0 SEEN Normal [facility] Comment on above: Order Comment: CLEAN CATCH Performed By: #### L 400.0001 #### [facility] [address] [place], [address] RBC 0 SEEN Normal 0-5 [facility] Comment on above: Order Comment: CLEAN CATCH Performed By: #### L 400.0001 #### [facility] [address] [place], [place], [id number] Urine clarityOrdered By: Kajal Emery on 08-30-2024 Clarity (U) Sl. Cloudy Clear [facility] Urine color determinationOrd ered By: Love Emery on 08-30-2024 Color (U) Yellow Yellow [facility] Urine glucose detectionOrder ed By: Love Emery on 08-30-2024 Glucose Ql (U) Normal mg/dl Normal [facility] Urine leukocyte esterase det ection by dipstickOrdered By: Love Emery on 08-30-2024 Leukocyte esterase Test strip Ql (U) 25 /ul High Negative [facility] Urine pHOrdered By: Love reid on 08-30-2024 pH (U) 8.0 [pH] 5.0 - 8.0 [facility] Urine sediment Trichomonas s pecies count by microscopy (number/low power field)Ordered By: Love Emery on 08-30-2024 Trichomonas sp LM.LPF (Urine sed) [#/Area] 0-5 SEEN /hpf None Seen [facility] Urine sediment bacteria coun t by microscopy (number/high power field)Ordered By: Love Emery on 08-30-2024 Bacteria LM.HPF (Urine sed) [#/Area] 1 /[HPF] None Seen [facility] Urine specific gravity measu rementOrdered By: Love Emery on 08-30-2024 Specific gravity (U) [Rel density] 1.010 1.002-1.030 [facility] Urine urobilinogen measureme ntOrdered By: Love Rupert on 08-30-2024 Urobilinogen Ql (U) Normal mg/dl Normal [facility] White blood cell (WBC) count Ordered By: Lovekatiana Emery on 08-30-2024 WBC (Bld) [#/Vol] 7.5 10*3/uL 4.4-11.0 [facility] White blood cell countOrdere d By: Love Emery on 08-30-2024 White blood cell count 0-5 SEEN /hpf 0-5 [facility] Abdomen/Pelvis W IV Cont ONL Yon 08-28-2024 Abdomen/Pelvis W IV Cont ONLY [facility] [address] [place] [address] Abdomen/Pelvis W IV Cont ONLY MR#: [id number] Acct: [id number] Name: LM ALVARADO Rep #: [id number] : 1975 F 49 From: Chandler Marshall MD PCP: Care Physician,No Primary Status: REG ER Study: Abdomen/Pelvis W IV Cont ONLY Date of Exam: Exam# [id number] Ordering Dr: Rik Marshall DO EXAM: CT Abdomen and Pelvis With Intravenous Contrast CLINICAL INDICATION: POSTOP PAIN TECHNIQUE: Axial computed tomography images of the abdomen and pelvis with intravenous contrast. This CT exam was performed using one or more of the following dose reduction techniques: automated exposure control, adjustment of the mA and/or kV according to patient size, and/or use of iterative reconstruction technique. COMPARISON: CT Abdomen Pelvis dated 07/08/2024 FINDINGS: LUNG BASES: Unremarkable. No mass. No consolidation. ABDOMEN: LIVER: Fatty infiltration of the liver. GALLBLADDER AND BILE DUCTS: Unremarkable. No calcified stones. No ductal dilation. PANCREAS: Unremarkable. No mass. No ductal dilation. SPLEEN: Unremarkable. No splenomegaly. ADRENALS: Unremarkable. No mass. KIDNEYS AND URETERS: 2.3 cm right renal cyst. No hydronephrosis. STOMACH AND BOWEL: Fecal retention in the colon consistent with constipation. No obstruction. No mucosal thickening. PELVIS: APPENDIX: Normal appendix. BLADDER: Unremarkable. No mass. REPRODUCTIVE: Unremarkable as visualized. ABDOMEN and PELVIS: INTRAPERITONEAL SPACE: See below. BONES/JOINTS: No acute fracture. No dislocation. SOFT TISSUES: Subcutaneous soft tissue swelling of the lateral right abdomen and right lower abdominal quadrant. Hypodense lesion of the subcutaneous tissues of the anterior right lower abdomen measuring up to 10.3 x 5.6 cm. This could be a seroma related to recent surgery. Evolving abscess can not be entirely excluded time of surgery. Pneumoperitoneum, likely postoperative changes. VASCULATURE: Unremarkable. No abdominal aortic aneurysm. LYMPH NODES: Unremarkable. No enlarged lymph nodes. CT/Abdomen/Pelvis W IV Cont ONLY IMPRESSION: 1. Normal appendix. 2. Subcutaneous soft tissue swelling of the lateral right abdomen and right lower abdominal quadrant. Hypodense lesion of the subcutaneous tissues of the anterior right lower abdomen measuring up to 10.3 x 5.6 cm. This could be a seroma related to recent surgery. Evolving abscess can not be entirely excluded time of surgery. Pneumoperitoneum, likely postoperative changes. 3. Fecal retention in the colon consistent with constipation. Reading Location: [facility] CC: Dr. Rik Marshall, DO; No Primary Care Physician Senior Technical Support Analyst: Signed Normal [facility] Absolute lymphocyte countOrd ered By: Rik Marshall on 08-28-2024 Lymphocytes Auto (Unsp spec) [#/Vol] 2.00 10*3/uL 0.83-4.51 [facility] Absolute neutrophil countOrd ered By: Rik Marshall on 08-28-2024 Neutrophils (Bld) [#/Vol] 3.4 10*3/uL 2.0-7.7 [facility] Anion gap in Serum or Plasma Ordered By: Rik Marshall on 08-28-2024 Anion gap [Moles/Vol] 9 mmol/L 5-15 [facility] Automated lymphocyte count a s percentage of total leukocytesOrdered By: Rik Marsahll on 08-28-2024 Lymphocytes/100 WBC Auto (Unsp spec) 33.3 % - [facility] BUN/creatinine ratioOrdered By: Rik Marshall on 08-28-2024 Urea nitrogen/Creatinine [Mass ratio] 12.7 mg/mg - [facility] Basic Metabolic Profile (BMP )on 08-28-2024 BUN/CRE 12.7 RATIO Normal - [facility] Comment on above: Performed By: #### L 100.0100, L500.2500 #### [facility] [address] [place], [address] Calcium [Mass/Vol] 9.0 mg/dL Normal 7.6-11.0 [facility] Comment on above: Performed By: #### L 100.0100, L500.2500 #### [facility] [address] [place], [address] Chloride [Moles/Vol] 103 mmol/L Normal 98-108 [facility] Comment on above: Performed By: #### L 100.0100, L500.2500 #### [facility] [address] [place], [address] CO2 [Moles/Vol] 27.8 mmol/L Normal 21.0-32.0 [facility] Comment on above: Performed By: #### L 100.0100, L500.2500 #### [facility] [address] [place], [address] Creatinine [Mass/Vol] 0.74 mg/dL Normal 0.70-1.20 [facility] Comment on above: Performed By: #### L 100.0100, L500.2500 #### [facility] [address] [place], [address] ECRCL 79.41 ml/min Normal 50-250 [facility] Comment on above: Performed By: #### L 100.0100, L500.2500 #### [facility] [address] [place], [address] GAP 9 Normal 5-15 [facility] Comment on above: Performed By: #### L 100.0100, L500.2500 #### [facility] [address] [place], [address] GFR/1.73 sq M.predicted among non-blacks MDRD (S/P/Bld) [Vol rate/Area] 99 mL/min/{1.73_m2} Normal >60 [facility] Comment on above: Result Comment: mL/m in/1.73m2 CKD-EPI Creatinine Equation (2020) Performed By: #### L 100.0100, L500.2500 #### [facility] [address] [place], [address] Glucose [Mass/Vol] 86 mg/dL Normal 70-99 [facility] Comment on above: Performed By: #### L 100.0100, L500.2500 #### [facility] [address] [place], [address] Potassium [Moles/Vol] 3.6 mmol/L Normal 3.3-5.1 [facility] Comment on above: Performed By: #### L 100.0100, L500.2500 #### [facility] [address] [place], [address] Sodium [Moles/Vol] 140 mmol/L Normal 133-145 [facility] Comment on above: Performed By: #### L 100.0100, L500.2500 #### [facility] [address] [place], [address] Urea nitrogen [Mass/Vol] 9 mg/dL Normal 4-19 [facility] Comment on above: Performed By: #### L 100.0100, L500.2500 #### [facility] [address] [place], [address] Basophil percentageOrdered B y: Rik Marshall on 08-28-2024 Basophils/100 WBC (Bld) 0.2 % 0-1 [facility] CBC W/Diff, Automatedon 08-07 Absolute Lymph 2.00 X10 3/uL Normal 0.83-4.51 [facility] Comment on above: Performed By: #### L 100.0100, L500.2500 #### [facility] [address] [place], [address] Absolute Neut 3.4 X10 3/uL Normal 2.0-7.7 [facility] Comment on above: Performed By: #### L 100.0100, L500.2500 #### [facility] [address] [place], [address] Basophils/100 WBC (Bld) 0.2 % Normal 0-1 [facility] Comment on above: Performed By: #### L 100.0100, L500.2500 #### [facility] [address] [place], [place], [id number] Eosinophils/100 WBC (Bld) 1.2 % Normal 0-5 [facility] Comment on above: Performed By: #### L 100.0100, L500.2500 #### [facility] [address] [place], [address] Erythrocyte distribution width (RBC) [Ratio] 13.1 % Normal 11.6-14.6 [facility] Comment on above: Performed By: #### L 100.0100, L500.2500 #### [facility] [address] [place], [address] Hematocrit (Bld) [Volume fraction] 34.4 % Low 37-47 [facility] Comment on above: Performed By: #### L 100.0100, L500.2500 #### [facility] [address] [place], [address] Hemoglobin (Bld) [Mass/Vol] 11.5 g/dL Low 12.0-15.0 [facility] Comment on above: Performed By: #### L 100.0100, L500.2500 #### [facility] [address] [place], [address] IG% 0.300 Normal 0.0-0.9 [facility] Comment on above: Result Comment: IG% - Immature Granulocytes (promyelocytes, myelocytes and metamyelocytes) > 1% indicates that a LEFT SHIFT is Present. Performed By: #### L 100.0100, L500.2500 #### [facility] [address] [place], [address] Lymphocytes/100 WBC (Bld) 33.3 % Normal 19-41 [facility] Comment on above: Performed By: #### L 100.0100, L500.2500 #### [facility] [address] [place], [address] MCH (RBC) [Entitic mass] 31.8 pg Normal 27.0-32.0 [facility] Comment on above: Performed By: #### L 100.0100, L500.2500 #### [facility] [address] [place], [address] MCHC (RBC) [Mass/Vol] 33.4 g/dL Normal 32-36 [facility] Comment on above: Performed By: #### L 100.0100, L500.2500 #### [facility] [address] [place], [address] MCV (RBC) [Entitic vol] 95.0 fL Normal 81-99 [facility] Comment on above: Performed By: #### L 100.0100, L500.2500 #### [facility] [address] [place], [address] Monocytes/100 WBC (Bld) 7.8 % Normal 0-10 [facility] Comment on above: Performed By: #### L 100.0100, L500.2500 #### [facility] [address] [place], [address] Neutrophils/100 WBC (Bld) 57.2 % Normal 47-70 [facility] Comment on above: Performed By: #### L 100.0100, L500.2500 #### [facility] [address] [facility] [place], [address] Nucleated RBC (Bld) [#/Vol] 0 10*3/uL Normal 0-5 [facility] Comment on above: Performed By: #### L 100.0100, L500.2500 #### [facility] [address] [place], [address] Platelet mean volume (Bld) [Entitic vol] 9.8 fL Normal 6.2-12.0 [facility] Comment on above: Performed By: #### L 100.0100, L500.2500 #### [facility] [address] [place], [address] Platelets (Bld) [#/Vol] 219 10*3/uL Normal 150-450 [facility] Comment on above: Performed By: #### L 100.0100, L500.2500 #### [facility] [address] [place], [address] RBC (Bld) [#/Vol] 3.62 10*6/uL Low 4.2-5.[address] [facility] Comment on above: Performed By: #### L 100.0100, L500.2500 #### [facility] [address] [place], [address] RDW SD 46.3 fl High 35.1-43.9 [facility] Comment on above: Performed By: #### L 100.0100, L500.2500 #### [facility] [address] [place], [address] WBC (Bld) [#/Vol] 6.0 10*3/uL Normal 4.4-11.0 [facility] Comment on above: Performed By: #### L 100.0100, L500.2500 #### [facility] [address] [place], [address] Carbon dioxide, total [Moles /volume] in Central venous bloodOrdered By: Rik Marshall on 08-28-2024 CO2 [Moles/Vol] 27.8 mmol/L 21.0-32.0 [facility] Chloride assayOrdered By: Julian Marshall on 08-28-2024 Chloride [Moles/Vol] 103 mmol/L 98-108 [facility] Emergency Department Summary on 08-28-2024 Emergency Department Summary [facility] Medical Records Department [address] [place] [address] Emergency Department Summary 08/28/24 MR#: [id number] Acct: [id number] Name: LM ALVARADO Rep #: [id number] : 1975 49 From: Rik Abdalla PCP: Care Physician,No Primary Status:DEP ER Location: ED HPI History of Present Illness Chief Complaint: Other, Pain/Inj Informant: patient Narrative Narrative: 3 days postop right salpingo oophorectomy and left salpingectomy with ovarian cystectomy followed by Dr. Cardoso. Patient discharged the following day due to postop abdominal hematoma develop that evening. Pain was controlled upon leaving. However she is using her medications scheduled of oxycodone every 4 hours and naproxen twice a day. Pain worsened yesterday worse with walking states feels like something stabbing down there. No urinary symptoms no vaginal bleeding. No bowel movement since she was discharged she started MiraLAX today. No fevers. Naproxen was taken a couple hours ago, oxycodone taken 3 hours ago. 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 Reports the area of postop surgery has not worsened. [facility] Medical History Wears glasses MRSA infection Bipolar disorder Marijuana use Arthritis Bladder disease Pulmonary embolism Migraine headache Loose, teeth Smoker Interstitial cystitis Irritable bowel syndrome History of pulmonary embolism Anxiety Home Medications ???Medication ???Instructions ???Recorded ???Last Taken ???Type aripiprazole 20 mg tablet 20 mg PO DAILY 06/04/24 08/28/24 H istory clonazepam 0.5 mg tablet 0.5 mg PO QHS PRN anxiety 06/04/24 08/28/24 History cyclobenzaprine 10 mg tablet 10 mg PO TID PRN muscle spasm #30 07/15/24 08/09/24 Rx tabs enoxaparin 40 mg/0.4 mL 40 mg (0.4 mL) SQ DAILY 14 days 08/26/24 Rx subcutaneous syringe (Lovenox) #20 mL oxycodone-acetaminophen 5 mg-325 1 tab PO Q4H PRN pain 7 days #20 0 08/25/24 08/28/24 Rx mg tablet (Percocet) tabs naproxen 500 mg tablet 500 mg PO BID PRN Pain 08/28/24 History Allergy/AdvReac Type Severity Reaction Status Date / Time metronidazole (From Flagyl) Allergy Severe Anaphylaxis Verified 08/28/24 11:37 Family History Grandmother Ovarian cancer, Onset Age: 69 Aunt Breast cancer, Onset Age: 45 Surgical History Status post bilateral salpingectomy History of ovarian cystectomy S/P right oophorectomy History of endometrial ablation Hx of tubal ligation History of back surgery H/O: hysterectomy Social History household members: spouse housing: house number of children: 3 current occupational status: employed current occupation: [employer] Smoking Status: Current every day smoker tobacco type: cigarettes and e-cigarettes do you feel safe at home: Yes additional social history: Boyfriend - Terence EAMON ROS ED Constitutional Constitutional ED: Denies fever(s) Cardiovascular Cardiovascular: Denies chest pain Respiratory/Chest Respiratory/Chest: Denies cough Gastrointestinal Gastrointestinal: Reports abdominal pain and constipation; Denies diarrhea or vomiting Musculoskeletal Musculoskeletal: Denies none Integumentary Denies rash or wounds Neurologic Neurologic: Denies weakness EXAM Physical Exam Const Vital Signs: 08/28/24 11:36 08/28/24 12:06 08/28/24 12:06 Temperature 98 F 98.6 F Temperature Source Temporal Oral Pulse Rate 66 78 Respiratory Rate 14 16 Respiratory Effort Normal Non-Labored Respiratory Pattern Normal Blood Pressure 123/76 H 128/78 H Blood Pressure Mean 91 94 Pulse Ox 98 98 Oxygen Delivery Method Room Air 08/28/24 13:36 08/28/24 14:58 Temperature 98 F Temperature Source Pulse Rate 78 78 Respiratory Rate 18 Respiratory Effort Respiratory Pattern Blood Pressure 112/78 112/78 Blood Pressure Mean 89 89 Pulse Ox 100 100 Oxygen Delivery Method Positive well nourished and well developed General Appearance ED: well developed HEENT normocephalic and atraumatic Eyes General Eye ED: Yes normal appearance of both eyes Neck full ROM Resp normal respiratory effort and normal air movement Cardio regular rate and regular rhythm GI soft to palpation GI Narrative: Laparoscopic incisions clean, dry, intact. Noted right lower quadrant dressing mild ecchymosis around the area, no hematoma palpated. Extremity normal to inspection and full ROM Neuro oriented x3 Skin no rashes or lesions noted and no wounds MDM MDM MDM Narrative Medical decision making narrative: Interventio (more content not included)... Normal [facility] Eosinophil percentageOrdered By: Rik Marshall on 08-28-2024 Eosinophils/100 WBC (Bld) 1.2 % 0-5 [facility] Erythrocyte distribution wid th ratioOrdered By: Rik Marshall on 08-28-2024 Erythrocyte distribution width (RBC) [Ratio] 13.1 % 11.6-14.6 [facility] Erythrocyte distribution wid th standard deviationOrdered By: Rik Marshall on 08-28-2024 Erythrocyte distribution width (RBC) [Ratio] 46.3 fl High 35.1-43.9 [facility] Glomerular filtration rate ( GFR) estimation/1.73 sq m using serum, plasma, or whole bOrdered By: Rik Marshall on 08-28-2024 GFR/1.73 sq M.predicted among non-blacks MDRD (S/P/Bld) [Vol rate/Area] 99 mL/min/{1.73_m2} >60 [facility] Comment on above: mL/min/1.73m2 CKD-EP I Creatinine Equation (2020) Hematocrit Auto (Bld) [Volum e fraction]Ordered By: Rik Marshall on 08-28-2024 Hematocrit (Bld) [Volume fraction] 34.4 % Low 37-47 [facility] Hemoglobin measurementOrdere d By: Rik Marshall on 08-28-2024 Hemoglobin (Bld) [Mass/Vol] 11.5 g/dL Low 12.0-15.0 [facility] Immature granulocytes/100 WB C Auto (Bld)Ordered By: Rik Marshall on 08-28-2024 Immature granulocytes/100 WBC (Bld) 0.300 % 0.0-0.9 [facility] Comment on above: IG% - Immature Granu locytes (promyelocytes, myelocytes and metamyelocytes) > 1% indicates that a LEFT SHIFT is Present. MCV (mean corpuscular volume ) determinationOrdered By: Rik Marshall on 08-28-2024 MCV (RBC) [Entitic vol] 95.0 fL 81-99 [facility] Mean corpuscular hemoglobin (MCH) determinationOrdered By: Rik Marshall on 08-28-2024 MCH (RBC) [Entitic mass] 31.8 pg 27.0-32.0 [facility] Mean corpuscular hemoglobin concentration (MCHC) determinationOrdered By: Rik Marshall on 08-28-2024 MCHC (RBC) [Mass/Vol] 33.4 g/dL 32-36 [facility] Mean platelet volume determi nationOrdered By: Rik Marshall on 08-28-2024 Platelet mean volume (Bld) [Entitic vol] 9.8 fL 6.2-12.0 [facility] Monocyte percentageOrdered B y: Rik Marshall on 08-28-2024 Monocytes/100 WBC (Bld) 7.8 % 0-10 [facility] Neutrophil percentageOrdered By: Rik Marshall on 08-28-2024 Neutrophils/100 WBC (Bld) 57.2 % 47-70 [facility] Nucleated red blood cell per centageOrdered By: Rik Marshall on 08-28-2024 Nucleated RBC/100 WBC (Bld) [Ratio] 0 % 0-5 [facility] Platelet countOrdered By: Julian Marshall on 08-28-2024 Platelets (Bld) [#/Vol] 219 10*3/uL 150-450 [facility] Potassium measurement (mass/ volume)Ordered By: Rik Marshall on 08-28-2024 Potassium (Unsp spec) [Mass/Vol] 3.6 mmol/L 3.3-5.1 [facility] RBC Auto (Bld) [#/Vol]Ordere d By: Rik Marshall on 08-28-2024 RBC (Bld) [#/Vol] 3.62 10*6/uL Low 4.2-5.[address] [facility] Serum creatinine measurement (mass/volume)Ordered By: Rik Marshall on 08-28-2024 Creatinine [Mass/Vol] 0.74 mg/dL 0.70-1.20 [facility] Serum glucose measurement (m ass/volume)Ordered By: Rik Marshall on 08-28-2024 Glucose [Mass/Vol] 86 mg/dL 70-99 [facility] Serum or plasma calcium dev urement (mass/volume)Ordered By: Rik Marshall on 08-28-2024 Calcium [Mass/Vol] 9.0 mg/dL 7.6-11.0 [facility] Serum or plasma urea nitroge n measurement (mass/volume)Ordered By: Rik Marshall on 08-28-2024 Urea nitrogen [Mass/Vol] 9 mg/dL 4-19 [facility] Sodium levelOrdered By: Rik Marshall on 08-28-2024 Sodium [Moles/Vol] 140 mmol/L 133-145 [facility] White blood cell (WBC) count Ordered By: Rik Marshall on 08-28-2024 WBC (Bld) [#/Vol] 6.0 10*3/uL 4.4-11.0 [facility] CBC-Complete Blood Cnt No Di ffon 08-26-2024 Erythrocyte distribution width (RBC) [Ratio] 13.0 % Normal 11.6-14.6 [facility] Comment on above: Performed By: #### L 100.0500 #### [facility] [address] [facility]. [facility] [id number] [phone] Hematocrit (Bld) [Volume fraction] 34.7 % Low 37-47 [facility] Comment on above: Performed By: #### L 100.0500 #### [facility] [address] [facility]. [facility] [address] Hemoglobin (Bld) [Mass/Vol] 12.0 g/dL Normal 12.0-15.0 [facility] Comment on above: Performed By: #### L 100.0500 #### [facility] [address] [facility] [place], [address] MCH (RBC) [Entitic mass] 32.0 pg Normal 27.0-32.0 [facility] Comment on above: Performed By: #### L 100.0500 #### [facility] [address] [place], [address] MCHC (RBC) [Mass/Vol] 34.6 g/dL Normal 32-36 [facility] Comment on above: Performed By: #### L 100.0500 #### [facility] [address] [place], [address] MCV (RBC) [Entitic vol] 92.5 fL Normal 81-99 [facility] Comment on above: Performed By: #### L 100.0500 #### [facility] [address] [place], [address] Platelet mean volume (Bld) [Entitic vol] 9.5 fL Normal 6.2-12.0 [facility] Comment on above: Performed By: #### L 100.0500 #### [facility] [address] [place], [address] Platelets (Bld) [#/Vol] 254 10*3/uL Normal 150-450 [facility] Comment on above: Performed By: #### L 100.0500 #### [facility] [address] [place], [address] RBC (Bld) [#/Vol] 3.75 10*6/uL Low 4.2-5.[address] [facility] Comment on above: Performed By: #### L 100.0500 #### [facility] [address] [place], [address] RDW SD 44.1 fl High 35.1-43.9 [facility] Comment on above: Performed By: #### L 100.0500 #### [facility] [address] [place], [place], [id number] WBC (Bld) [#/Vol] 16.9 10*3/uL High 4.4-11.[address] [facility] Comment on above: Performed By: #### L 100.0500 #### [facility] [address] [place], [address] Erythrocyte distribution wid th ratioOrdered By: Treasure Cardoso on 08-26-2024 Erythrocyte distribution width (RBC) [Ratio] 13.0 % 11.6-14.6 [facility] Erythrocyte distribution wid th standard deviationOrdered By: Treasure Cardoso on 08-26-2024 Erythrocyte distribution width (RBC) [Ratio] 44.1 fl High 35.1-43.9 [facility] Hematocrit Auto (Bld) [Volum e fraction]Ordered By: Treasure Cardoso on 08-26-2024 Hematocrit (Bld) [Volume fraction] 34.7 % Low 37-47 [facility] Hemoglobin measurementOrdere d By: Treasure Cardoso on 08-26-2024 Hemoglobin (Bld) [Mass/Vol] 12.0 g/dL 12.0-15.0 [facility] MCV (mean corpuscular volume ) determinationOrdered By: Treasure Cardoso on 08-26-2024 MCV (RBC) [Entitic vol] 92.5 fL 81-99 [facility] Mean corpuscular hemoglobin (MCH) determinationOrdered By: Treasure Cardoso on 08-26-2024 MCH (RBC) [Entitic mass] 32.0 pg 27.0-32.0 [facility] Mean corpuscular hemoglobin concentration (MCHC) determinationOrdered By: Treasure Cardoso on 08-26-2024 MCHC (RBC) [Mass/Vol] 34.6 g/dL 32-36 [facility] Mean platelet volume determi nationOrdered By: Treasure Cardoso on 08-26-2024 Platelet mean volume (Bld) [Entitic vol] 9.5 fL 6.2-12.0 [facility] Platelet countOrdered By: Rowan Cardoso on 08-26-2024 Platelets (Bld) [#/Vol] 254 10*3/uL 150-450 [facility] RBC Auto (Bld) [#/Vol]Ordere d By: Treasure Ryanreddy on 08-26-2024 RBC (Bld) [#/Vol] 3.75 10*6/uL Low 4.2-5.[address] [facility] White blood cell (WBC) count Ordered By: Treasure Triston on 08-26-2024 WBC (Bld) [#/Vol] 16.9 10*3/uL High 4.4-11.[address] [facility] Absolute lymphocyte countOrd ered By: Treasure Cardoso on 08-25-2024 Lymphocytes Auto (Unsp spec) [#/Vol] 0.97 10*3/uL 0.83-4.51 [facility] Absolute neutrophil countOrd ered By: Treasure Cardoso on 08-25-2024 Neutrophils (Bld) [#/Vol] 18.0 10*3/uL High 2.0-7.7 [facility] Activated partial thrombopla stin time (aPTT) in platelet poor plasma by coagulation aOrdered By: Treasure Cardoso on 08-25-2024 aPTT Coag (PPP) [Time] 30.8 s 24.1-36.2 [facility] Automated lymphocyte count a s percentage of total leukocytesOrdered By: Treasure Cardoso on 08-25-2024 Lymphocytes/100 WBC Auto (Unsp spec) 5.0 % Low 19-41 [facility] Basophil percentageOrdered B y: Treasure Cardoso on 08-25-2024 Basophils/100 WBC (Bld) 0.3 % 0-1 [facility] CBC W/Diff, Automatedon 08-07 Absolute Lymph 0.97 X10 3/uL Normal 0.83-4.51 [facility] Comment on above: Performed By: #### L 500.2500, L100.0100 #### [facility] [address] [place], [place], [id number] Absolute Neut 18.0 X10 3/uL High 2.0-7.7 [facility] Comment on above: Performed By: #### L 500.2500, L100.0100 #### [facility] [address] [place], [address] Basophils/100 WBC (Bld) 0.3 % Normal 0-1 [facility] Comment on above: Performed By: #### L 500.2500, L100.0100 #### [facility] [address] [place], [address] Eosinophils/100 WBC (Bld) 0.0 % Normal 0-5 [facility] Comment on above: Performed By: #### L 500.2500, L100.0100 #### [facility] [address] [place], [address] Erythrocyte distribution width (RBC) [Ratio] 13.1 % Normal 11.6-14.6 [facility] Comment on above: Performed By: #### L 500.2500, L100.0100 #### [facility] [address] [place], [address] Hematocrit (Bld) [Volume fraction] 39.0 % Normal 37-47 [facility] Comment on above: Performed By: #### L 500.2500, L100.0100 #### [facility] [address] [place], [address] Hemoglobin (Bld) [Mass/Vol] 13.5 g/dL Normal 12.0-15.0 [facility] Comment on above: Performed By: #### L 500.2500, L100.0100 #### [facility] [address] [place], [address] IG% 0.600 Normal 0.0-0.9 [facility] Comment on above: Result Comment: IG% - Immature Granulocytes (promyelocytes, myelocytes and metamyelocytes) > 1% indicates that a LEFT SHIFT is Present. Performed By: #### L 500.2500, L100.0100 #### [facility] [address] [place], [address] Lymphocytes/100 WBC (Bld) 5.0 % Low 19-41 [facility] Comment on above: Performed By: #### L 500.2500, L100.0100 #### [facility] [address] [place], [address] MCH (RBC) [Entitic mass] 32.2 pg High 27.0-32.0 [facility] Comment on above: Performed By: #### L 500.2500, L100.0100 #### [facility] [address] [place], [address] MCHC (RBC) [Mass/Vol] 34.6 g/dL Normal 32-36 [facility] Comment on above: Performed By: #### L 500.2500, L100.0100 #### [facility] [address] [place], [address] MCV (RBC) [Entitic vol] 93.1 fL Normal 81-99 [facility] Comment on above: Performed By: #### L 500.2500, L100.0100 #### [facility] [address] [place], [address] Monocytes/100 WBC (Bld) 0.9 % Normal 0-10 [facility] Comment on above: Performed By: #### L 500.2500, L100.0100 #### [facility] [address] [place], [address] Neutrophils/100 WBC (Bld) 93.2 % High 47-70 [facility] Comment on above: Performed By: #### L 500.2500, L100.0100 #### [facility] [address] [place], [address] Nucleated RBC (Bld) [#/Vol] 0 10*3/uL Normal 0-5 [facility] Comment on above: Performed By: #### L 500.2500, L100.0100 #### [facility] [address] [place], [address] Platelet mean volume (Bld) [Entitic vol] 9.6 fL Normal 6.2-12.0 [facility] Comment on above: Performed By: #### L 500.2500, L100.0100 #### [facility] [address] [place], [address] Platelets (Bld) [#/Vol] 236 10*3/uL Normal 150-450 [facility] Comment on above: Performed By: #### L 500.2500, L100.0100 #### [facility] [address] [place], [address] RBC (Bld) [#/Vol] 4.19 10*6/uL Low 4.2-5.[address] [facility] Comment on above: Performed By: #### L 500.2500, L100.0100 #### [facility] [address] [place], [address] RDW SD 44.6 fl High 35.1-43.9 [facility] Comment on above: Performed By: #### L 500.2500, L100.0100 #### [facility] [address] [place], [address] WBC (Bld) [#/Vol] 19.3 10*3/uL High 4.4-11.[address] [facility] Comment on above: Performed By: #### L 500.2500, L100.0100 #### [facility] [address] [place], [address] CBC-Complete Blood Cnt No Di ffon 08-25-2024 Erythrocyte distribution width (RBC) [Ratio] 13.0 % Normal 11.6-14.6 [facility] Comment on above: Performed By: #### L 500.2500, L100.0100 #### [facility] [address] [place], [address] Hematocrit (Bld) [Volume fraction] 39.3 % Normal 37-47 [facility] Comment on above: Performed By: #### L 500.2500, L100.0100 #### [facility] [address] [place], [address] Hemoglobin (Bld) [Mass/Vol] 13.5 g/dL Normal 12.0-15.0 [facility] Comment on above: Performed By: #### L 500.2500, L100.0100 #### [facility] [address] [place], [address] MCH (RBC) [Entitic mass] 32.1 pg High 27.0-32.0 [facility] Comment on above: Performed By: #### L 500.2500, L100.0100 #### [facility] [address] [place], [address] MCHC (RBC) [Mass/Vol] 34.4 g/dL Normal 32-36 [facility] Comment on above: Performed By: #### L 500.2500, L100.0100 #### [facility] [address] [place], [address] MCV (RBC) [Entitic vol] 93.3 fL Normal 81-99 [facility] Comment on above: Performed By: #### L 500.2500, L100.0100 #### [facility] [address] [place], [address] Platelet mean volume (Bld) [Entitic vol] 9.5 fL Normal 6.2-12.0 [facility] Comment on above: Performed By: #### L 500.2500, L100.0100 #### [facility] [address] [place], [address] Platelets (Bld) [#/Vol] 255 10*3/uL Normal 150-450 [facility] Comment on above: Performed By: #### L 500.2500, L100.0100 #### [facility] [address] [place], [address] RBC (Bld) [#/Vol] 4.21 10*6/uL Normal 4.2-5.[address] [facility] Comment on above: Performed By: #### L 500.2500, L100.0100 #### [facility] [address] [place], [address] RDW SD 44.2 fl High 35.1-43.9 [facility] Comment on above: Performed By: #### L 500.2500, L100.0100 #### [facility] [address] [place], [address] WBC (Bld) [#/Vol] 20.3 10*3/uL High 4.4-11.[address] [facility] Comment on above: Performed By: #### L 500.2500, L100.0100 #### [facility] [address] [place], [address] Discharge Instructionon 08-07 Discharge Instruction [facility] Medical Records Department [address] [place] [address] Instructions for Home/Discharge Instructions 08/25/24 0747 MR#: [id number] Acct: [id number] Name: LM ALVARADO Rep #: [id number] : 1975 49 From: Treasure Cardoso MD PCP: Jenaro Physician,No Primary Status:REG SDC Discharge Instructions DC O2, CPAP, BIPAP needs Home O2 Discharge instructions: No Follow Up Care Test Results: Test results from this visit will be discussed in further detail at your follow-up appointment, if applicable. Discharge Plan Admission Attending Provider: Treasure Cardoso Primary Care Provider: Jenaro Physician,No Primary Instructions Print Language: Dutch Discharge Orders/Prescriptions Prescriptions: New naproxen 500 mg tablet 500 mg PO BID PRN PRN (Reason: Pain) Qty: 30 1RF enoxaparin [Lovenox] 40 mg/0.4 mL syringe 40 mg SQ DAILY 14 Days Qty: 20 1RF No Action cyclobenzaprine 10 mg tablet 10 mg PO TID PRN (Reason: muscle spasm) Qty: 30 2RF clonazepam 0.5 mg tablet 0.5 mg PO QHS PRN (Reason: anxiety) Patient Comments: PT TAKES AT BEDTIME AND ROUTINELY aripiprazole 20 mg tablet 20 mg PO DAILY hydrocodone-acetaminophen 5-325 mg tablet 1 tab PO Q6H PRN PRN (Reason: Pain) 5 Days Qty: 14 0RF Other Ambulatory Orders: 12 Lead EKG (Routine) Location: None Selected Ordered By: Dr. Ayad Jones Referrals / Follow Up: Care Physician,No Primary [Primary Care Provider] - Disposition Disposition (needs filled in before D/C Order can be placed): Home, Self Care 08/25/24 1631 Treasure Cardoso MD CC: No Primary Care Physician Signed Normal [facility] Eosinophil percentageOrdered By: Treasure Cardoso on 08-25-2024 Eosinophils/100 WBC (Bld) 0.0 % 0-5 [facility] Fibrinogenon 08-25-2024 FIBRINOGEN 309 mg/dl Normal 203-444 [facility] Comment on above: Order Comment: Comme nts: STAT Performed By: #### L 300.4310, L300.4700, L300.3900 ####[facility] [id number] [facility]. [place], [place], [id number] Immature granulocytes/100 WB C Auto (Bld)Ordered By: Treasure Cardoso on 08-25-2024 Immature granulocytes/100 WBC (Bld) 0.600 % 0.0-0.9 [facility] Comment on above: IG% - Immature Granu locytes (promyelocytes, myelocytes and metamyelocytes) > 1% indicates that a LEFT SHIFT is Present. International normalized rat io (INR) calculationOrdered By: Treasure Cradoso on 08-25-2024 INR Coag (Bld) [Relative time] 1.1 {INR} [facility] MR/POSTOP.ANEon 08-25-2024 MR/POSTOP.ANE [facility] Medical Records Department [address] [place] [address] Anesthesia Postop Eval I 08/25/242027 MR#: [id number] Acct: [id number] Name: LM ALVARADO Rep #: [id number] : 1975 49 From: Carmelo Mart MD PCP: Care Physician,No Primary Status:REG SDC Y Race: C Location: [facility] [id number] Anesthesia: Postop Eval I Current Vital Signs Temperature: 97.7 F Pulse Rate: 100 Blood Pressure: 96/83 Respiratory Rate: 16 Pulse Ox: 95 Oxygen Delivery Method: Room Air Assessment Airway patent: Yes Spontaneous unlabored respirations: Yes Mental status: Calm and Asleep nausea: No Vomiting: No Anesthesia Complication: No Fluid Hydration Crystalloid volume administer (ml): 350 Total IV fluid infused: 350 Progress Note Anesthesia document: Postop Eval 1 completed: Yes 08/25/242028 Date Carmelo Mart MD [facility] Signature: Date CC: Signed Normal [facility] MR/POSTOP.[facility] Medical Records Department [address] [place] [address] Anesthesia Postop Eval I 08/25/24 1541 MR#: [id number] Acct: [id number] Name: CHRISTIANOLM Rep #: [id number] : 1975 49 From: Bisi Sanford PCP: Care Physician,No Primary Status:REG SDC Y Race: C Location: [place] [address] Anesthesia: Postop Eval I Current Vital Signs Temperature: 97.4 F Pulse Rate: 64 Blood Pressure: 120/72 Respiratory Rate: 16 Pulse Ox: 98 Oxygen Delivery Method: Room Air Assessment Airway patent: Yes Spontaneous unlabored respirations: Yes Mental status: Awake and Calm nausea: No Vomiting: No Anesthesia Complication: No Fluid Hydration Crystalloid volume administer (ml): 1,000 Total IV fluid infused: 1,000 Progress Note Anesthesia document: Postop Eval 1 completed: Yes 08/25/24 1541 Date Bisi Hunterignmitch Signature: Date CC: Signed Normal [facility] MR/[id number] 08-25-2024 [facility] Medical Records Department [address] [facility] [place] [address] Anesthesia Postop Eval II 08/25/242029 MR#: [id number] Acct: [id number] Name: LM ALVARADO Rep #: [id number] : 1975 49 From: Carmelo Mart MD PCP: Care Physician,No Primary Status:[facility] Y Race: C Location: [place] [address] Anesthesia Postop Eval I Sum Postop Eval Completion status Anesthesia document: Postop Eval 1 completed: Yes Anesthesia Postop Eval I Summary Anesthesia Postop Eval I Summary: Anesthesia Postop Eval I: Assessment Summary Airway patent Yes 08/25/24 20:29 Spontaneous unlabored Yes 08/25/24 20:29 respirations Mental status Calm,Asleep 08/25/24 20:29 nausea No 08/25/24 20:29 Vomiting No 08/25/24 20:29 Anesthesia Postop Eval I: Fluid Summary Crystalloid volume administer 350 08/25/24 20:29 (ml) Colloids volume administered ( ml) Blood Product volume administered (ml) Total IV fluid infused 350 08/25/24 20:29 Anesthesia Postop Eval I: Summary Notes Anesthesia Complication No 08/25/24 20:29 Anesthesia Complication Comment: Post-operative progress note Anesthesia: Postop Eval II Evaluation Mental status: Awake Pain Level: 1 nausea: No Vomiting: No 08/25/242029 Date Carmelo Mart MD Cosigner Signature: Date CC: Signed Normal [facility] MR/POSTOPAN2 [facility] Medical Records Department [address] [facility] [place] [address] Anesthesia Postop Eval II 08/25/241649 MR#: [id number] Acct: [id number] Name: LM ALVARADO Rep #: [id number] : 1975 49 From: Carmelo Mart MD PCP: Care Physician,No Primary Status:REG [facility] Y Race: C Location: [place] [address] Anesthesia Postop Eval I Sum Postop Eval Completion status Anesthesia document: Postop Eval 1 completed: Yes Anesthesia Postop Eval I Summary Anesthesia Postop Eval I Summary: Anesthesia Postop Eval I: Assessment Summary Airway patent Yes 08/25/24 15:41 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 Spontaneous unlabored Yes 08/25/24 15:41 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 respirations Mental status Awake,Calm 08/25/24 15:41 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 nausea No 08/25/24 15:41 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 Vomiting No 08/25/24 15:41 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 Anesthesia Postop Eval I: Fluid Summary Crystalloid volume administer 1,000 08/25/24 15:41 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 (ml) Colloids volume administered ( ml) Blood Product volume administered (ml) Total IV fluid infused 1,000 08/25/24 15:41 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 Anesthesia Postop Eval I: Summary Notes Anesthesia Complication No 08/25/24 15:41 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 Anesthesia Complication Comment: Post-operative progress note Anesthesia: Postop Eval II Evaluation Mental status: Awake Pain Level: 0 nausea: No Vomiting: No 08/25/241649 Date Carmelo Diez Signature: Date CC: Signed Normal [facility] Monocyte percentageOrdered B y: Treasure Cardoso on 08-25-2024 Monocytes/100 WBC (Bld) 0.9 % 0-10 [facility] Neutrophil percentageOrdered By: Treasure Cardoso on 08-25-2024 Neutrophils/100 WBC (Bld) 93.2 % High 47-70 [facility] Nucleated red blood cell per centageOrdered By: Treasure Cardoso on 08-25-2024 Nucleated RBC/100 WBC (Bld) [Ratio] 0 % 0-5 [facility] Operative Reporton Operative Report [facility] Medical Records Department [address] [place] [address] Operative Report 08/25/242036 MR#: [id number] Acct: [id number] Name: LM ALVARADO Rep #: [id number] : 1975 49 From: Treasure Cardoso MD PCP: Care Physician,No Primary Status:[facility] Location: [place] [address] Problems Associated Problem List Diagnoses (1) Abdominal wall hematoma: Procedures Urinary/Genital 52xxx-59xxx: Other Procedure See Report (attention hoang patient taken back to OR same day and incisional exploration unsure what code to use) Operative Report (Standard) Operative Information Date of Procedure: 08/25/24 Pre-Operative Diagnosis: abdominal wall hematoma Post-Operative Diagnosis: same Surgery/Procedure Performed: incisional abdominal wall exploration of abdominal wall hematoma head trimmer: Yes Fabric Machine Operator: Jak Casas Tasks completed by phlebotomy lab assistant: Opening closing, Altering tissue, Hemostasis: Clamp, Hemostasis: Tie, Hemostasis: Electrocautery and Retracting Type of Anesthesia: General RN Documented Start/Stop Times: Operation Date: 08/25/24 18:15 Case Time Anesthesia Start 08/25/24 18:44 Into Room 08/25/24 18:44 Procedure Start 08/25/24 19:01 Procedure End 08/25/24 20:07 Anesthesia End 08/25/24 20:16 Out of Room 08/25/24 20:16 Into Recovery 08/25/24 20:20 Procedure Start Time: 19:01 Procedure Stop Time: 20:07 Select all DRAINS/GRAFTS/IMPLANTS that apply: None Estimated Blood Loss: 500 Specimen collected: No Description of surgery: Patient was taken to the operating room after having had laparoscopy earlier today and being found to have an expanding right abdominal wall hematoma where the right trocar was seen. General surgery was consulted and they agreed to take the patient back and agreed to assist in the procedure. Patient was prepped and draped in the normal sterile fashion in the dorsal supine position. Ancef given preoperatively. The right trocar incision was opened and extended to a full 5 cm incision. Hematoma was evacuated approximately 300cc of clot and active bleeding noted both just underneath the skin and the muscle appeared oozy. Exploration performed in the abdominal wall under the anterior rectus sheath throughout the rectus muscle it was all appearing to be above the posterior rectus sheath no abdominal involvement. No major vessel injury was suspected. [id number] suture of silk tie was placed in the muscle for hemostasis. The Bovie was used to cauterize several areas of raw appearing oozing and a vessel near the skin. Then fibrillar was placed and Floseal over top. Hemostasis was noted. Anterior rectus sheath closed with 0 Vicryl and skin closed with 4-0 Monocryl. Steri-Strips applied. Patient was awoken and taken recovery in stable condition. Surgical Findings: abdominal wall hematoma, rectus muscle bleeding Complications Complications: No 08/25/242046 Cosigner Signature (if applicable): CC: Dr. Treasure Cardoso MD; No Primary Care Physician Signed Normal [facility] Operative Report [facility] Medical Records Department [address] [place] [address] Operative Report 08/25/24 1515 MR#: [id number] Acct: [id number] Name: LM ALVARADO Rep #: [id number] : 1975 49 From: Treasure Cardoso MD PCP: Care Physician,No Primary Status:[facility] Location: [facility] AC04-1 Problems Associated Problem List Diagnoses (1) Pelvic pain: (2) Hemorrhagic cyst of ovary: (3) Giselle: Operative Report (Standard) Operative Information Date of Procedure: 08/25/24 Pre-Operative Diagnosis: see above Post-Operative Diagnosis: same Surgery/Procedure Performed: laparoscopic right salpingoophorectomy left salpingectomy ovarian cystectomy head trimmer: Yes Fabric Machine Operator: Juan Mendenhall Tasks completed by phlebotomy lab assistant: Opening, Closing, Insert Trochanter and Retracting Type of Anesthesia: General RN Documented Start/Stop Times: Operation Date: 08/25/24 13:55 Case Time Into Pre-Op 08/25/24 12:24 Out of Pre-Op 08/25/24 14:09 Anesthesia Start 08/25/24 14:15 Into Room 08/25/24 14:15 Procedure Start 08/25/24 14:34 Procedure Start Time: 14:15 Procedure Stop Time: 15:21 Select all DRAINS/GRAFTS/IMPLANTS that apply: Drains Drain details: lott Estimated Blood Loss: 50 Specimen collected: Yes Description of specimen(s) removed: tubes ovary ovarian cyst wall Description of surgery: Patient was taken to the operating room and was prepped and draped in normal sterile fashion after being placed under general anesthesia. She was in the dorsolithotomy position and bladder was drained of clear urine a sponge stick placed in the vagina. Umbilicus was injected with lidocaine and a 5 mm incision was made at the umbilicus and Veress needle entered into the abdomen confirmed to be intra-abdominal with an opening pressure of 2 mmHg pressure. Abdomen was insufflated with CO2 gas to allow passage of a 5 mm Optiview trocar. Right and left lower quadrant Optiview trocars were placed under direct visualization also. Pelvis was well-visualized and the right ovary was noted to be nodular but not cystic in appearance and the tube was still present the left ovary was noted to be cystic and enlarged with a tube that was multicystic and abnormal in appearance also in noted to be present. A left ovarian cystectomy was performed the cyst wall removed the left tube removed the right oophorectomy and tube also removed using the LigaSure device without complication. No other abnormalities were seen within the pelvis. All instruments were removed after the specimens were removed through the umbilicus through a 5 bag and the fascia was closed in the umbilicus with an 0 Vicryl. Abdomen was desufflated of gas patient was awoken and taken recovery in stable condition after the incisions were closed with 3-0 Monocryl. Surgical Findings: left cystic ovary right ovary nodular Complications Complications: No 08/25/24 1521 Cosigner Signature (if applicable): CC: Dr. Treasure Cardoso MD; No Primary Care Physician Signed Normal [facility] Partial Thromboplast Timeon 08-25-2024 aPTT Coag (Bld) [Time] 30.8 s Normal 24.1-36.2 [facility] Comment on above: Order Comment: Comme nts: STAT Performed By: #### L 300.4310, L300.4700, L300.3900 ####[facility] [id number] [facility] [place], [address] Prothrombin Time w/INRon INR Coag (PPP) [Relative time] 1.1 {INR} Normal [facility] Comment on above: Order Comment: Comme nts: STAT Performed By: #### L 300.4310, L300.4700, L300.3900 #### [facility] [address] [place], [address] PT Coag (PPP) [Time] 14.8 s Normal 11.7-14.9 [facility] Comment on above: Order Comment: Comme nts: STAT Performed By: #### L 300.4310, L300.4700, L300.3900 #### [facility] [address] [facility] [place], [address] Prothrombin timeOrdered By: Treasure Cardoso on 08-25-2024 PT Coag (PPP) [Time] 14.8 s 11.7-14.9 [facility] Surgery Specimen Level IIon 08-25-2024 Surgery Specimen Level II Patient Age/Sex Location Account Attending Physician CHRISTIANOFELICITYROSANNA 49/F MS3 [id number] Dr. Treasure Cardoso MD Specimen: [id number] Received: 08/25/24 Status: FLORENTIN Mannorma Num: [id number] Spec Type: FALL TUBES Subm Dr: Dr. Treasure Cardoso MD HEADER OPERATION: Laparoscopic, right oophorectomy, possible left oopherectomy PRE-OP DIAGNOSIS: Giselle, pelvic pain, hemorrhagic cyst of ovary TISSUE SUBMITTED: A- Bilateral fallopian tubes, left ovarian cyst wall, right ovary MICROSCOPIC DIAGNOSIS A. Bilateral fallopian tubes, left ovarian cyst wall, right ovary, bilateral salpingectomy, left cystectomy, and right oophorectomy: * Ovaries: Follicular cysts, corpora albicantia * Fallopian tubes: Plical fibrosis, endometriosis, paratubal cysts MICROSCOPIC DESCRIPTION Slides are reviewed. GROSS DESCRIPTION A. Received in formalin in a container labeled with the patient's name, date of , and bilateral fallopian tubes, left ovarian cyst wall, right ovary are 5 purple-bell, shaggy and disrupted fragments of soft tissue measuring 4.3 x 3.4 x 2.2 cm in aggregate and 8.6 g together. 1 fragment appears consistent with a previously disrupted fallopian tube segment measuring 2 cm in length by 0.8 cm in diameter. There is a 1.0 x 0.9 x 0.8 cm thin-walled paratubal cyst with thin serous fluid. One end exhibits possible fimbria. Sectioning reveals a pinpoint lumen with an additional 0.7 x 0.7 cm cystic structure adjacent to the paratubal cyst. There are 2 purple-bell, rubbery fragments that appear consistent with cyst wall measuring 4.2 x 1.7 x 0.4 cm and 1.0 x 0.7 x 0.6 cm. The outer/inner surfaces are smooth and glistening. Sectioning of each reveals an average wall thickness of 0.3 cm with no firm or papillary areas. The remaining 2 shaggy fragments grossly appear consistent with a previously disrupted, nodular ovary with possible adherent fallopian tube remnant (5.6 g and 3 x 2 x 1.7 cm together). Serial sections reveal purple-bell, focally hemorrhagic ovarian parenchyma with a 0.5 x 0.5 x 0.5 cm thin-walled cystic structure. The inner lining is smooth and glistening with no papillary excrescences identified. A 1.5 cm in length by 0.8 cm in diameter indurated and adhesed possible fallopian tube remnant is identified and sectioned to reveal a pinpoint lumen. No fimbriated end is discovered. District Claims Manager sections:A1. Possible fimbriated fallopian tube with paratubal cystA2. Possible cyst wallA3. Possible fallopian tube attached to ovaryA4-5. Ovary [facility] 08-26-2024 Patient Age/Sex Location Account Attending Physician CHRISTIANOLM GARCIA / MS3 [id number] Dr. Treasure Cardoso MD CPT:94513h0 Patient Age/Sex Location Account Attending Physician CHRISTIANOFELICITYROSANNA 49/ MS3 [id number] Dr. Treasure Cardoso MD Signed (signature on file) Dr. Beth Barajas DO 09/07/24 1457 Normal [facility] Comment on above: Performed By: #### P SUII ####[facility] [id number] [facility]. [place], [place], [address] Electrocardiogram reportOrde red By: Rob Vee on 08-24-2024 EKG study [facility] Cardiovascular Services [address] [place] [address] 12 Lead EKG 08/20/24 1023 MR#: [id number] Acct: [id number] Name: LM ALVARADO Rep #:[id number] : 1975 49 From: Rob Vee MD Attending Dr: Dr. Treasure Cardoso MD Status: PRE SDC Ordering Dr: Treasure Cardoso MD Marco Antonio e: 08/20/24 Location: [facility] Sex: F C Admitted: Test Reason : PRE OP Blood Pressure : */* mmHG Vent. Rate : 85 BPM Atrial Rate : 85 BPM P-R Int : 136 ms QRS Dur : 68 ms QT Int : 358 ms P-R-T Axes : 83 76 78 degrees QTcB Int : 426 ms Normal sinus rhythm Septal infarct , age undetermined Abnormal ECG Confirmed by NANDA NUR, ROB ([id number]), production editor HUGO MÁRQUEZ ([id number]) on 08/24/2024 9:15:07 AM Referred By: Treasure Cardoso Confirmed By: ROB VEE MD 08/24/24914 Date _ Rob Vee MD CC: Dr. Treasure Cardoso MD; No Primary Care Physician ~ Signed [facility] Work Phone: 12 Lead EKGon 08-20-2024 12 Lead EKG [facility] Cardiovascular Services [address] [place] [address] 12 Lead EKG 08/20/24 1023 MR#: [id number] Acct: [id number] Name: LM ALVARADO Rep #: [id number] : 1975 49 From: Rob Vee MD Attending Dr: Dr. Treasure Cardoso MD Status: PRE SDC Ordering Dr: Treasure Cardoso MD Date: 08/20/24 Location: [facility] Sex: F C Admitted: Test Reason : PRE OP Blood Pressure : */* mmHG Vent. Rate : 85 BPM Atrial Rate : 85 BPM P-R Int : 136 ms QRS Dur : 68 ms QT Int : 358 ms P-R-T Axes : 83 76 78 degrees QTcB Int : 426 ms Normal sinus rhythm Septal infarct , age undetermined Abnormal ECG Confirmed by ROB VEE MD ([id number]), production editor HUGO MÁRQUEZ ([id number]) on 08/24/2024 9:15:07 AM Referred By: Treasure Cardoso Confirmed By: ROB VEE MD 08/24/24914 Date Rob Vee MD CC: Dr. Treasure Cardoso MD; No Primary Care Physician Signed [facility] Type AND Screen - PAT GERBERon 08-20-2024 Ab SCREEN GEL Negative [facility] Comment on above: Order Comment: Reaso n for Laboratory Test [id number] Performed By: #### B TSPAT ####[facility] [id number] 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 When Was Last Pacemaker Check QUESTION #4 FULL TEXT: You/Your Family Experience fever (hyperthermia) with Anesthesia Last Oral Intake Last Oral intake: Last Oral Intake NPO since Meds taken in AM with sips of water? Meds patient instructed to take am of surgery PONV PONV - wild life photographer: PONV - wild life photographer Female Yes 08/19/24 10:23 HX of Motion Sickness Yes 08/19/24 10:23 HX of N/V After Surgery No 08/19/24 10:23 Non-Smoker No 08/19/24 10:23 Duration of Surgery greater No 08/19/24 10:23 than 60 minutes Number of Risk Factors 2 08/19/24 10:23 PONV Score Moderate Risk 08/19/24 10:23 Height Weight Height Weight: Anesthesia: Height Weight Height 5 ft 4 in 08/13/24 08:22 Respiratory Assessment Respiratory Assessment - wild life photographer: Respiratory Tract Infection Hx - wild life photographer Hx Respiratory Tract Infection No 08/19/24 10:23 STOP Sleep Apnea STOP Sleep Apnea - wild life photographer: STOP Sleep Apnea - wild life photographer Hx Hypertension No: hypotension 08/19/24 10:23 Hx Sleep Apnea No 08/19/24 10:23 CPAP BIPAP Do you snore loudly (louder No 08/19/24 10:23 than talking or can be heard Do you often feel tired/ No 08/19/24 10:23 fatigued/ sleepy during daytime? Has anyone observed you stop No 08/19/24 10:23 breathing during sleep? STOP Results Negative 08/19/24 10:23 QUESTION #5 FULL TEXT : Do you snore loudly (louder than talking or can be heard through closed doors)? 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 Specify any problems Hx of Preganancy in last 3 N/A 08/19/24 10:23 Months Nurse Filling Out Transfusion NBUCHER 08/19/24 10:23 Questions: Date: 08/19/24 08/19/24 10:23 Time: 10:08/19/24 10:23 Patient unable to answer at this time (ie. confused, unrespo /Reproduction History /Reproductive History - wild life photographer: /Reproductive Hx- wild life photographer Hx Now No 08/19/24 10:23 Gestational Age (in weeks): EDC: Hx Hx Para Hx Section SAB No 08/19/24 10:23 PFSH Medical History (Updated 08/19/24 @ 10:37 by Cinthia Monterroso) Wears glasses MRSA infection Bipolar disorder Marijuana use Arthritis Bladder disease Pulmonary embolism Migraine headache Loose, teeth Smoker Interstitial cystitis Irritable bowel syndrome History of pulmonary embolism Anxiety Home Medications ???Medication ???Instructions ???Recorded ???Last Taken ???Type aripiprazole 20 mg tablet 20 mg PO DAILY 06/04/24 08/09/24 H istory clonazepam 0.5 mg tablet 0.5 mg PO QHS PRN anxiety 06/04/24 08/08/24 History cyclobenzaprine 10 mg tablet 10 mg PO TID PRN muscle spasm #30 07/15/24 08/09/24 Rx tabs hydrocodone-acetaminophen 5-325mg 1 tab PO Q6H PRN PRN Pain 5 days 08/09/24 Unknown Rx 5mg-325mg #14 TABLETS Allergy/AdvReac Type Severity Reaction Status Date / Time metronidazole (From Flagyl) Allergy Severe Anaphylaxis Verified (more content not included)... Normal [facility] Molded Goods Controls Operator Office Visit Reporton 08-18-2024 Molded Goods Controls Operator Office Visit Report [facility] [address], [address] [place] [address] OFFICE VISIT Date of Service: 08/18/24 MR#: [id number] Acct: [id number] Name: LM ALVARADO Rep #: [id number] : 1975 Provider: Dr. Treasure viera MD Age/Sex: 49/F Location: [facility] Status: Signed Intake Vital Signs 08/13/24 08:22 08/18/24 10:02 08/18/24 10:02 Height 5 ft 4 in 5 ft 4 in 5 ft 4 in Weight: 119 lb BMI 20.4 BP 111/73 Intake Visit Reasons: Laparoscopic Oophorectomy Inspector Crystal Required: No Is patient in pain?: Yes (pelvic pain) Pain scale (1-10): 6 Allergies metronidazole (From Flagyl) Allergy (Severe, Verified 08/19/24 10:21) Anaphylaxis Medications ???Medication ???Instructions ???Recorded ???Confirmed ???Type aripiprazole 20 mg tablet 20 mg PO DAILY 06/04/24 08/19/24 H istory clonazepam 0.5 mg tablet 0.5 mg PO QHS PRN anxiety 06/04/24 08/19/24 History cyclobenzaprine 10 mg tablet 10 mg PO TID PRN muscle spasm #30 07/15/24 08/19/24 Rx tabs hydrocodone-acetaminophen 5-325mg 1 tab PO Q6H PRN PRN Pain 5 days 08/09/24 08/19/24 Rx 5mg-325mg #14 TABLETS Is last menstrual period known: No Patient : No : No PFSH Medical History (Updated 08/21/24 @ 16:[address] Treasure Cardoso MD) Wears glasses MRSA infection Bipolar disorder Marijuana use Arthritis Bladder disease Pulmonary embolism Migraine headache Loose, teeth Smoker Interstitial cystitis Irritable bowel syndrome History of pulmonary embolism Anxiety Surgical History (Updated 08/19/24 @ 10:37 by Cinthia Monterroso) History of endometrial ablation Hx of tubal ligation History of back surgery H/O: hysterectomy Family History Grandmother Ovarian cancer, Onset Age: 69 Aunt Breast cancer, Onset Age: 45 Social History household members: spouse housing: house number of children: 3 current occupational status: employed current occupation: [employer] Smoking Status: Current every day smoker tobacco type: cigarettes and e-cigarettes do you feel safe at home: Yes additional social history: Boyfriend - Terence GARDNER Laparoscopic Oophorectomy Details: LM ALVARADO is a 49 year old who presents for follow-up and preoperative visit. Patient has had continued intermittent pelvic pain worse on the right side that she has been to the ER multiple times for now. It is interfering with quality of life and daily life and limiting her ability to work. She is living in a mcc at present. She states she wants to proceed with surgical management she is not a candidate for hormonal suppression due to her history of a PE. She understands the risks of premature menopause and wants to proceed with some ovarian preservation if possible. Female Reproductive History Menopausal Symptoms: No night sweats History 6 Elective abortions 2 Hx Para 3 Spontaneous abortions 1 Hx # Term Pregnancies Ectopic pregnancies Hx # Pregnancies Multiple births # of living children 3 Past Pregnancies Del. Date Name GA/Weeks Outcome Route Bth Weight Gen Labor Lgth Anesthesia Del Locatn Provider FOB Unknown 1994 Vinod live - full term Unknown 1996 Araceli live - Unknown 2002 Marely live - ROS Const Constitutional: Denies fatigue, night sweats, weight gain or weight loss ENT ENT: Reports system reviewed and no additional complaints, except as documented Cardio Card: Denies chest pain Resp Resp: Denies cough or dyspnea GI GI: Reports as per HPI and abdominal pain; Denies constipation, nausea or vomiting : Denies nipple discharge, urinary frequency, urinary incontinence, urinary hesitancy, urinary urgency, vaginal discharge, vaginal dryness, vaginal odor or vaginal pruritus Musc Musc: Denies arthralgias, back pain or muscle weakness Skin Skin/Breast: Denies alopecia, change in hair, dry skin, breast mass, breast pain, breast skin changes or nipple discharge Neuro Neuro: Reports system reviewed and no additional complaints, except as documented Psych Psych: Reports system reviewed and no additional complaints, except as documented Endo Endo: Reports cold intolerance; Denies excessive sweating, heat intolerance or polydipsia Roger/Lymph Hematologic/Lymphatic: Denies easy bleeding, Denies easy bruising and Denies lymphadenopathy Exam Const General: cooperative, healthy appearing, comfortable and no acute distress Orientation: alert HENWY Head: normal to inspection and normocephalic Ears: hearing grossly normal bilaterally and external ears normal Nose: external nose normal and (more content not included)... Normal [facility] Cancer Antigen 125on 025 CA 125 4.0 U/mL Normal 0.0-38.1 [facility] Comment on above: Result Comment: [place] Electrochemiluminescence Immunoassay (ECLIA) Values obtained with different assay methods or kits cannot be used interchangeably. Results cannot be interpreted as absolute evidence of the presence or absence of malignant disease. Performed at: [address] [id number] Electrical Designer Drafter: Brandon Kulkarni PhD, Phone: [phone] Performed By: #### L 317.4992, A180.3041 #### [facility] [place], [address] Carcinoembryonic Antigenon 0 08-14-2024 CEA 2.9 ng/mL Normal 0.0-4.7 [facility] Comment on above: Result Comment: Nons mokers <3.9 Smokers <5.6 [facility] Electrochemiluminescence Immunoassay (ECLIA) Values obtained with different assay methods or kits cannot be used interchangeably. Results cannot be interpreted as absolute evidence of the presence or absence of malignant disease. Performed By: #### L 500.2500, L100.0100 #### [facility] [address] [place], [address] Absolute lymphocyte countOrd ered By: Moriah Davidson on 08-13-2024 Lymphocytes Auto (Unsp spec) [#/Vol] 2.36 10*3/uL 0.83-4.51 [facility] Absolute neutrophil countOrd ered By: Moriah Stuart on 08-13-2024 Neutrophils (Bld) [#/Vol] 4.5 10*3/uL 2.0-7.7 [facility] Automated lymphocyte count a s percentage of total leukocytesOrdered By: Moriah Davidson on 08-13-2024 Lymphocytes/100 WBC Auto (Unsp spec) 31.1 % 19-41 [facility] Basophil percentageOrdered B y: Moriah Davidson on 08-13-2024 Basophils/100 WBC (Bld) 0.5 % 0-1 [facility] CBC W/Diff, Automatedon Absolute Lymph 2.36 X10 3/uL Normal 0.83-4.51 [facility] Comment on above: Performed By: #### L 500.2500, L100.0100 #### [facility] [address] [place], [address] Absolute Neut 4.5 X10 3/uL Normal 2.0-7.7 [facility] Comment on above: Performed By: #### L 500.2500, L100.0100 #### [facility] [address] [place], [address] Basophils/100 WBC (Bld) 0.5 % Normal 0-1 [facility] Comment on above: Performed By: #### L 500.2500, L100.0100 #### [facility] [address] [place], [address] Eosinophils/100 WBC (Bld) 1.6 % Normal 0-5 [facility] Comment on above: Performed By: #### L 500.2500, L100.0100 #### [facility] [address] [place], [address] Erythrocyte distribution width (RBC) [Ratio] 13.0 % Normal 11.6-14.6 [facility] Comment on above: Performed By: #### L 500.2500, L100.0100 #### [facility] [address] [place], [address] Hematocrit (Bld) [Volume fraction] 45.6 % Normal 37-47 [facility] Comment on above: Performed By: #### L 500.2500, L100.0100 #### [facility] [address] [place], [address] Hemoglobin (Bld) [Mass/Vol] 15.6 g/dL High 12.0-15.0 [facility] Comment on above: Performed By: #### L 500.2500, L100.0100 #### [facility] [address] [place], [address] IG% 0.300 Normal 0.0-0.9 [facility] Comment on above: Result Comment: IG% - Immature Granulocytes (promyelocytes, myelocytes and metamyelocytes) > 1% indicates that a LEFT SHIFT is Present. Performed By: #### L 500.2500, L100.0100 #### [facility] [address] [place], [address] Lymphocytes/100 WBC (Bld) 31.1 % Normal 19-41 [facility] Comment on above: Performed By: #### L 500.2500, L100.0100 #### [facility] [address] [place], [address] MCH (RBC) [Entitic mass] 32.2 pg High 27.0-32.0 [facility] Comment on above: Performed By: #### L 500.2500, L100.0100 #### [facility] [address] [place], [address] MCHC (RBC) [Mass/Vol] 34.2 g/dL Normal 32-36 [facility] Comment on above: Performed By: #### L 500.2500, L100.0100 #### [facility] [address] [place], [address] MCV (RBC) [Entitic vol] 94.0 fL Normal 81-99 [facility] Comment on above: Performed By: #### L 500.2500, L100.0100 #### [facility] [address] [place], [address] Monocytes/100 WBC (Bld) 7.0 % Normal 0-10 [facility] Comment on above: Performed By: #### L 500.2500, L100.0100 #### [facility] [address] [place], [address] Neutrophils/100 WBC (Bld) 59.5 % Normal 47-70 [facility] Comment on above: Performed By: #### L 500.2500, L100.0100 #### [facility] [address] [place], [address] Nucleated RBC (Bld) [#/Vol] 0 10*3/uL Normal 0-5 [facility] Comment on above: Performed By: #### L 500.2500, L100.0100 #### [facility] [address] [place], [address] Platelet mean volume (Bld) [Entitic vol] 10.4 fL Normal 6.2-12.0 [facility] Comment on above: Performed By: #### L 500.2500, L100.0100 #### [facility] [address] [place], [address] Platelets (Bld) [#/Vol] 285 10*3/uL Normal 150-450 [facility] Comment on above: Performed By: #### L 500.2500, L100.0100 #### [facility] [address] [place], [address] RBC (Bld) [#/Vol] 4.85 10*6/uL Normal 4.2-5.[address] [facility] Comment on above: Performed By: #### L 500.2500, L100.0100 #### [facility] [address] [place], [address] RDW SD 45.0 fl High 35.1-43.9 [facility] Comment on above: Performed By: #### L 500.2500, L100.0100 #### [facility] [address] [place], [address] WBC (Bld) [#/Vol] 7.6 10*3/uL Normal 4.4-11.0 [facility] Comment on above: Performed By: #### L 500.2500, L100.0100 #### [facility] [address] [place], [address] Cancer antigen 125 (CA-125) measurementOrdered By: Moriah Davidson on 08-13-2024 Cancer antigen 125 (CA-125) measurement 4.0 U/mL 0.0-38.1 [facility] Comment on above: [facility] El ectrochemiluminescence Immunoassay(ECLIA)Values obtained with different assay methods or kits cannotbe used interchangeably. Results cannot be interpreted asabsolute evidence of the presence or absence of malignantdisease.Performed at: [facility] [employer] [id number] Director: Brandon Kulkarni PhD, Phone: [phone] Eosinophil percentageOrdered By: Moriah Davidson on 08-13-2024 Eosinophils/100 WBC (Bld) 1.6 % 0-5 [place] [facility] Erythrocyte distribution wid th ratioOrdered By: Moriah Davidson on 08-13-2024 Erythrocyte distribution width (RBC) [Ratio] 13.0 % 11.6-14.6 [facility] Erythrocyte distribution wid th standard deviationOrdered By: Moriah Davidson on 08-13-2024 Erythrocyte distribution width (RBC) [Ratio] 45.0 fl High 35.1-43.9 [facility] Hematocrit Auto (Bld) [Volum e fraction]Ordered By: Moriah Davidson on 08-13-2024 Hematocrit (Bld) [Volume fraction] 45.6 % 37-47 [facility] Hemoglobin measurementOrdere d By: Moriah Davidson on 08-13-2024 Hemoglobin (Bld) [Mass/Vol] 15.6 g/dL High 12.0-15.0 [facility] Immature granulocytes/100 WB C Auto (Bld)Ordered By: Moriah Davidson on 08-13-2024 Immature granulocytes/100 WBC (Bld) 0.300 % 0.0-0.9 [facility] Comment on above: IG% - Immature Granu locytes (promyelocytes, myelocytes and metamyelocytes) > 1% indicates that a LEFT SHIFT is Present. MCV (mean corpuscular volume ) determinationOrdered By: Moriah Davidson on 08-13-2024 MCV (RBC) [Entitic vol] 94.0 fL 81-99 [facility] Mean corpuscular hemoglobin (MCH) determinationOrdered By: Moriah Davidson on 08-13-2024 MCH (RBC) [Entitic mass] 32.2 pg High 27.0-32.0 [facility] Mean corpuscular hemoglobin concentration (MCHC) determinationOrdered By: Moriah Davidson on 08-13-2024 MCHC (RBC) [Mass/Vol] 34.2 g/dL 32-36 [facility] Mean platelet volume determi nationOrdered By: Moriah Davidson on 08-13-2024 Platelet mean volume (Bld) [Entitic vol] 10.4 fL 6.2-12.0 [facility] Monocyte percentageOrdered B y: Moriah Davidson on 08-13-2024 Monocytes/100 WBC (Bld) 7.0 % 0-10 [facility] Neutrophil percentageOrdered By: Moriah Davidson on 08-13-2024 Neutrophils/100 WBC (Bld) 59.5 % 47-70 [facility] Nucleated red blood cell per centageOrdered By: Moriah Davidson on 08-13-2024 Nucleated RBC/100 WBC (Bld) [Ratio] 0 % 0-5 [facility] [employer]olded Goods Controls Operator Office Visit Reporton 08-13-2024 Molded Goods Controls Operator Office Visit Report [facility] [address], [address] [place] [address] OFFICE VISIT Date of Service: 08/13/24 MR#: [id number] Acct: [id number] Name: LM ALVARADO Rep #: [id number] : 1975 Provider: Dr. Moriah Kaplan DO Age/Sex: 49/F Location: [facility] Status: Signed Intake Vital Signs 08/11/24 10:27 08/13/24 08:22 08/13/24 08:22 Height 5 ft 4 in 5 ft 4 in 5 ft 4 in Weight: 119 lb BMI 20.4 BP 100/58 L Intake Visit Reasons: ER follow up right sided pain Inspector Crystal Required: No Is patient in pain?: No Allergies metronidazole (From Flagyl) Allergy (Severe, Verified 08/13/24 08:20) Anaphylaxis Medications ???Medication ???Instructions ???Recorded ???Confirmed ???Type aripiprazole 20 mg tablet 20 mg PO DAILY 06/04/24 08/13/24 H istory clonazepam 0.5 mg tablet 0.5 mg PO DAILY PRN anxiety 08/13/24 History cyclobenzaprine 10 mg tablet 10 mg PO TID PRN muscle spasm #30 07/15/24 08/13/24 Rx tabs hydrocodone-acetaminophen 5-325mg 1 tab PO Q6H PRN PRN Pain 5 days 08/09/24 08/13/24 Rx 5mg-325mg #14 TABLETS Post menopausal: No Patient : No : No PFSH Medical History Interstitial cystitis Irritable bowel syndrome History of pulmonary embolism Anxiety Surgical History History of endometrial ablation Hx of tubal ligation History of back surgery H/O: hysterectomy Family History Grandmother Ovarian cancer, Onset Age: 69 Aunt Breast cancer, Onset Age: 45 Social History household members: spouse housing: house number of children: 3 current occupational status: employed current occupation: [employer] Smoking Status: Current every day smoker tobacco type: cigarettes and e-cigarettes do you feel safe at home: Yes additional social history: Boyfriend - Terence [facility] ER follow up right sided pain Details: LM ALVARADO is a 49 year old who presents for follow up ER visit. She is tearful today and guarding her right side. Ultrasounds have shown hemorrhagic cyst of the right ovary and follow up scan suggests the left now. She is taking hydrocodone at home and unable to manage the pain. She is status post hysterectomy in the past. Her maternal grandmother had ovarian cancer age 69 and her maternal Aunt had breast cancer in her 40's and . Her genetic tests for BRCA were negative. History 6 Elective abortions 2 Hx Para 3 Spontaneous abortions 1 Hx # Term Pregnancies Ectopic pregnancies Hx # Pregnancies Multiple births # of living children 3 Past Pregnancies Del. Date Name GA/Weeks Outcome Route Bth Weight Infant Gen Labor Lgth Anesthesia Del Locatn Provider FOB Unknown 1994 Vinod live - full term Unknown 1996 Araceli live - Unknown 2002 Marely live - ROS Const ROS Unobtainable: All systems reviewed are unremarkable except as noted in H Resp Resp: Reports system reviewed and no additional complaints, except as documented; Denies cough GI GI: Reports as per HPI Psych Psych: Reports system reviewed and no additional complaints, except as documented Exam Const General: cooperative, healthy appearing, comfortable and no acute distress Resp Effort Inspection: normal respiratory effort Skin General: no rashes or lesions noted Psych Appearance: grossly normal Speech and Movement: speech and movement normal Coding Level of Care Code Off vis,est,level 4 Diagnoses Hemorrhagic cyst of left ovary N83.202 Hemorrhagic cyst of ovary N83.209 Pelvic pain R10.2 Assessment and Plan Assessment and Plan (1) Hemorrhagic cyst of left ovary: Status: Acute (2) Hemorrhagic cyst of ovary: Status: Acute Comment: recommend fu US in 6 weeks. (3) Pelvic pain: Status: Acute Orders: Orders Carcinoembryonic Antigen Today N94.89 - Other specified conditions associated with female genital organs and menstrual cycle Cancer Antigen 125 Today N94.89 - Other specified conditions associated with female genital organs and menstrual cycle CBC W/Diff, Automated Today N94.89 - Other specified conditions associated with female genital organs and menstrual cycle Plan Recommend diagnostic laparoscopy to remove ovary on the side that is affected. It is possible the laterality is wrong on ultrasound. sending this to Dr. Cardoso who originally set her up for surgery then paused to repeat ultrasound. tumor markers today. 08/13/24854 Date (more content not included)... Normal [facility] Platelet countOrdered By: Wiley Davidson on 08-13-2024 Platelets (Bld) [#/Vol] 285 10*3/uL 150-450 [facility] RBC Auto (Bld) [#/Vol]Ordere d By: Moriah Davidson on 08-13-2024 RBC (Bld) [#/Vol] 4.85 10*6/uL 4.2-5.[address] [facility] Serum or plasma carcinoembry onic antigen measurement (mass/volume)Ordered By: Moriah Davidson on 08-13-2024 Carcinoembryonic Ag [Mass/Vol] 2.9 ng/mL 0.0-4.7 [facility] Comment on above: Nonsmokers <3.9 Smok ers <5.6[facility] Electrochemiluminescence Immunoassay(ECLIA)Values obtained with different assay methods or kitscannot be used interchangeably. Results cannot beinterpreted as absolute evidence of the presence orabsence of malignant disease. White blood cell (WBC) count Ordered By: Moriah Davidson on 08-13-2024 WBC (Bld) [#/Vol] 7.6 10*3/uL 4.4-11.0 [facility] Absolute lymphocyte countOrd ered By: Richard Burgos on 08-11-2024 Lymphocytes Auto (Unsp spec) [#/Vol] 2.18 10*3/uL 0.83-4.51 [facility] Absolute neutrophil countOrd ered By: Richard Burgos on 08-11-2024 Neutrophils (Bld) [#/Vol] 3.4 10*3/uL 2.0-7.7 [facility] Automated lymphocyte count a s percentage of total leukocytesOrdered By: Richard Burgos on 08-11-2024 Lymphocytes/100 WBC Auto (Unsp spec) 34.8 % 19-41 [facility] Basophil percentageOrdered B y: Richard Burgos on 08-11-2024 Basophils/100 WBC (Bld) 0.3 % 0-1 [facility] Bilirubin Test strip Ql (U)O rdered By: Richard Burgos on 08-11-2024 Bilirubin Ql (U) Negative Negative [facility] CBC W/Diff, Automatedon Absolute Lymph 2.18 X10 3/uL Normal 0.83-4.51 [facility] Comment on above: Performed By: #### L 100.0100 ####[facility] [address] [place], [address] Absolute Neut 3.4 X10 3/uL Normal 2.0-7.7 [facility] Comment on above: Performed By: #### L 100.0100 ####[facility] [address] [place], [address] Basophils/100 WBC (Bld) 0.3 % Normal 0-1 [facility] Comment on above: Performed By: #### L 100.0100 ####[facility] [address] [place], [address] Eosinophils/100 WBC (Bld) 2.2 % Normal 0-5 [facility] Comment on above: Performed By: #### L 100.0100 ####[facility] [address] [place], [address] Erythrocyte distribution width (RBC) [Ratio] 13.1 % Normal 11.6-14.6 [facility] Comment on above: Performed By: #### L 100.0100 ####[facility] [address] [place], [address] Hematocrit (Bld) [Volume fraction] 45.8 % Normal 37-47 [facility] Comment on above: Performed By: #### L 100.0100 ####[facility] [address] [place], [address] Hemoglobin (Bld) [Mass/Vol] 15.6 g/dL High 12.0-15.0 [facility] Comment on above: Performed By: #### L 100.0100 ####[facility] [address] [place], [address] IG% 0.300 Normal 0.0-0.9 [facility] Comment on above: Result Comment: IG% - Immature Granulocytes (promyelocytes, myelocytes and metamyelocytes) > 1% indicates that a LEFT SHIFT is Present. Performed By: #### L 100.0100 ####[facility] [address] [place], [address] Lymphocytes/100 WBC (Bld) 34.8 % Normal 19-41 [facility] Comment on above: Performed By: #### L 100.0100 ####[facility] [address] [place], [address] MCH (RBC) [Entitic mass] 31.6 pg Normal 27.0-32.0 [facility] Comment on above: Performed By: #### L 100.0100 ####[facility] [address] [place], [address] MCHC (RBC) [Mass/Vol] 34.1 g/dL Normal 32-36 [facility] Comment on above: Performed By: #### L 100.0100 ####[facility] [address] [place], [address] MCV (RBC) [Entitic vol] 92.7 fL Normal 81-99 [facility] Comment on above: Performed By: #### L 100.0100 ####[facility] [address] [place], [address] Monocytes/100 WBC (Bld) 7.7 % Normal 0-10 [facility] Comment on above: Performed By: #### L 100.0100 ####[facility] [address] [place], [address] Neutrophils/100 WBC (Bld) 54.7 % Normal 47-70 [facility] Comment on above: Performed By: #### L 100.0100 ####[facility] [address] [place], [address] Nucleated RBC (Bld) [#/Vol] 0 10*3/uL Normal 0-5 [facility] Comment on above: Performed By: #### L 100.0100 ####[facility] [address] [place], [address] Platelet mean volume (Bld) [Entitic vol] 9.3 fL Normal 6.2-12.0 [facility] Comment on above: Performed By: #### L 100.0100 ####[facility] [address] [place], [address] Platelets (Bld) [#/Vol] 273 10*3/uL Normal 150-450 [facility] Comment on above: Performed By: #### L 100.0100 ####[facility] [address] [place], [address] RBC (Bld) [#/Vol] 4.94 10*6/uL Normal 4.2-5.[address] [facility] Comment on above: Performed By: #### L 100.0100 ####[facility] [address] [place], [address] RDW SD 44.8 fl High 35.1-43.9 [facility] Comment on above: Performed By: #### L 100.0100 ####[facility] [address] [place], [address] WBC (Bld) [#/Vol] 6.3 10*3/uL Normal 4.4-11.0 [facility] Comment on above: Performed By: #### L 100.0100 ####[facility] [address] [place], [address] Emergency Department Summary on 08-11-2024 Emergency Department Summary [facility] Medical Records Department [address] [place] [address] Emergency Department Summary 08/11/24 MR#: [id number] Acct: [id number] Name: LM ALVARADO Rep #: [id number] : 1975 49 From: Richard Burgos MD PCP: Care Physician,No Primary Status:REG ER Location: ED HPI HPI - Female History of Present Illness Chief Complaint: Female C/O Detail of Chief Complaint: Burning sensation superior to the inguinal crease Informant: patient Pain Pain: Negative for Pelvic Pain, Vulvar Pain or Vaginal Pain Timing: Continuous Quality: Positive for Burning Location: - (Superior right inguinal crease up to the anterior superior iliac spine region) Current Severity: Mild Maximum Severity: Moderate Worsened by: Movement Relieved by: - (Nothing) Bleeding Issue: Negative for Vaginal bleeding, Passing clots or Passing tissue Associated Symptoms Associated Symptoms: Negative for Dysuria, Frequency, Urgency or Hematuria Last known menstrual period: 2005. Patient had ablation. Sexually: Positive for Active Narrative Narrative: Patient is a 49-year-old woman. She has been having pain for approximately 2 months. She had an ultrasound on July 08, 2024 at [facility] and was found to have a hemorrhagic right ovarian cyst. The right ovary was septated and the cyst measured 5.9 x 5.4 x 4.0 cm. What prompted her to come in today is the burning sensation. Movement does make the pain worse. She denies dysuria, frequency, urgency or hematuria. Mother has history of renal/ureteral lithiasis. She denies history of renal or ureteral lithiasis. She explicitly told me this is not her bladder. She was informed that where she is complaining of pain is unusual for pain to be due to an ovarian cyst. She has not noted a rash. There is no history of trauma. She denies nausea, vomiting diarrhea. Prior similar symptoms: Yes Recent Illness/Hospitalization: Yes PFSH PFS Medical History Interstitial cystitis Irritable bowel syndrome History of pulmonary embolism Anxiety Home Medications ???Medication ???Instructions ???Recorded ???Last Taken ???Type aripiprazole 20 mg tablet 20 mg PO DAILY 06/04/24 08/09/24 H istory clonazepam 0.5 mg tablet 0.5 mg PO DAILY PRN anxiety 08/08/24 History cyclobenzaprine 10 mg tablet 10 mg PO TID PRN muscle spasm #30 07/15/24 08/09/24 Rx tabs hydrocodone-acetaminophen 5-325mg 1 tab PO Q4H PRN Pain 08/09/24 History 5mg-325mg hydrocodone-acetaminophen 5-325mg 1 tab PO Q6H PRN PRN Pain 5 days 08/09/24 Unknown Rx 5mg-325mg #14 TABLETS Allergy/AdvReac Type Severity Reaction Status Date / Time metronidazole (From Flagyl) Allergy Severe Anaphylaxis Verified 08/11/24 12:17 Family History Grandmother Ovarian cancer, Onset Age: 69 Aunt Breast cancer, Onset Age: 45 Surgical History History of endometrial ablation Hx of tubal ligation History of back surgery H/O: hysterectomy Social History household members: spouse housing: house number of children: 3 current occupational status: employed current occupation: [employer] Smoking Status: Current every day smoker tobacco type: cigarettes and e-cigarettes do you feel safe at home: Yes additional social history: Boyfriend - Terence EAMON ROS ED Constitutional Constitutional ED: Denies chills, fever(s), subjective or sweats Cardiovascular Cardiovascular: Denies palpitations Respiratory/Chest Respiratory/Chest: Denies dyspnea Gastrointestinal Gastrointestinal: Reports abdominal pain; Denies constipation, diarrhea, melena, nausea or vomiting Genitourinary Genitourinary ED: Denies dysuria, hematuria or urinary frequency Musculoskeletal Musculoskeletal: Denies arthralgias, myalgias or neck pain Integumentary Denies rash Neurologic Neurologic: Denies paresthesias Psychiatric Psychiatric: Denies anxiety Hematologic/Lymphatic Hematologic/Lymphatic: Denies easy bleeding or easy bruising EXAM Physical Exam Const Vital Signs: 08/11/24 10:27 08/11/24 12:27 Temperature 98 F Temperature Source Temporal Pulse Rate 87 76 Respiratory Rate 16 14 Blood Pressure 117/56 L 115/81 H Blood Pressure Mean 76 92 Pulse Ox 98 98 Oxygen Delivery Method Room Air Positive well nourished and well developed Constitutional Narrative: Patient appears slightly uncomfortable. General Appearance ED: well developed; Negative for odor of alcohol detected HEENT HEENT Narrative: Head is atraumatic normocephalic. Ears normal. Nares patent. Eyes PERRL General Eye ED: Negative for pale conj (more content not included)... Normal [facility] Eosinophil percentageOrdered By: Richard Burgos on 08-11-2024 Eosinophils/100 WBC (Bld) 2.2 % 0-5 [facility] Erythrocyte distribution wid th ratioOrdered By: Richard Burgos on 08-11-2024 Erythrocyte distribution width (RBC) [Ratio] 13.1 % 11.6-14.6 [facility] Erythrocyte distribution wid th standard deviationOrdered By: Richard Burgos on 08-11-2024 Erythrocyte distribution width (RBC) [Ratio] 44.8 fl High 35.1-43.9 [facility] Hematocrit Auto (Bld) [Volum e fraction]Ordered By: Richard Burgos on 08-11-2024 Hematocrit (Bld) [Volume fraction] 45.8 % 37-47 [facility] Hemoglobin measurementOrdere d By: Richard Burgos on 08-11-2024 Hemoglobin (Bld) [Mass/Vol] 15.6 g/dL High 12.0-15.0 [facility] Immature granulocytes/100 WB C Auto (Bld)Ordered By: Richard Burgos on 08-11-2024 Immature granulocytes/100 WBC (Bld) 0.300 % 0.0-0.9 [facility] Comment on above: IG% - Immature Granu locytes (promyelocytes, myelocytes and metamyelocytes) > 1% indicates that a LEFT SHIFT is Present. Ketones Test strip Ql (U)Ord ered By: Richard Burgos on 08-11-2024 Ketones Ql (U) Negative Negative [facility] MCV (mean corpuscular volume ) determinationOrdered By: Richard Burgos on 08-11-2024 MCV (RBC) [Entitic vol] 92.7 fL 81-99 [facility] Mean corpuscular hemoglobin (MCH) determinationOrdered By: Richard Burgos on 08-11-2024 MCH (RBC) [Entitic mass] 31.6 pg 27.0-32.0 [facility] Mean corpuscular hemoglobin concentration (MCHC) determinationOrdered By: Richard Burgos on 08-11-2024 MCHC (RBC) [Mass/Vol] 34.1 g/dL 32-36 [facility] Mean platelet volume determi nationOrdered By: Richard Burgos on 08-11-2024 Platelet mean volume (Bld) [Entitic vol] 9.3 fL 6.2-12.0 [facility] Microscopic analysis of urin e for red blood cells (RBC)Ordered By: Richard Burgos on 08-11-2024 Microscopic analysis of urine for red blood cells (RBC) 0 SEEN /hpf 0-5 [facility] Monocyte percentageOrdered B y: Richard Burgos on 08-11-2024 Monocytes/100 WBC (Bld) 7.7 % 0-10 [facility] Mucus LM Ql (Urine sed)Order ed By: Richard Burgos on 08-11-2024 Mucus Ql (Urine sed) 0 SEEN /hpf [facility] Neutrophil percentageOrdered By: Richard Burgos on 08-11-2024 Neutrophils/100 WBC (Bld) 54.7 % 47-70 [facility] Nitrite Test strip Ql (U)Ord ered By: Richard Burgos on 08-11-2024 Nitrite Ql (U) Negative Negative [facility] Nucleated red blood cell per centageOrdered By: Richard Burgos on 08-11-2024 Nucleated RBC/100 WBC (Bld) [Ratio] 0 % 0-5 [facility] Platelet countOrdered By: Ezequiel Burgos on 08-11-2024 Platelets (Bld) [#/Vol] 273 10*3/uL 150-450 [facility] Protein Test strip Ql (U)Ord ered By: Richard Burgos on 08-11-2024 Protein Ql (U) 15 mg/dl High Negative [facility] RBC Auto (Bld) [#/Vol]Ordere d By: Richard Burgos on 08-11-2024 RBC (Bld) [#/Vol] 4.94 10*6/uL 4.2-5.[address] [facility] Squamous epithelial cells de tection in urine sediment by light microscopyOrdered By: Richard Burgos on 08-11-2024 Epithelial cells.squamous LM Ql (Urine sed) 0 SEEN /hpf 5-10 [facility] Transvaginal Non-on 08-11-2024 Transvaginal Non- [facility] Imaging Services [address] [place] [id number] Transvaginal Non- MR#: [id number] Acct: [id number] Name: LM ALVARADO Rep #: [id number] : 1975 F 49 From: Chandler Smyth MD PCP: Care Physician,No Primary Status: [facility] ER Study: Transvaginal Non- Date of Exam: Exam# [id number] Ordering Dr: Richard Burgos MD PROCEDURE: TRANSVAGINAL NON-, 08/11/2024 REASON FOR EXAM: RIGHT ADNEXAL PAIN TECHNIQUE: Grayscale and color doppler transvaginal pelvic ultrasound was performed. COMPARISON: 07/08/2024 FINDINGS: Uterus/endometrium: Hysterectomy. Right ovary: 2.8 x 1.4 x 1.6 cm. Unremarkable. Not evaluated with spectral Doppler. Left ovary: 4.6 x 2.6 x 2.9 cm. 3.6 x 3.7 x 2.9 cm complex cyst with a fluid/fluid level and low- level internal echoes within a portion of the cyst. Normal low resistance arterial and venous waveforms. Free fluid: None visualized. Other: None. US/Transvaginal Non- IMPRESSION: 1. Unremarkable grayscale appearance of the RIGHT ovary. Note that spectral Doppler evaluation was not performed and therefore torsion cannot be excluded however given the normal-size and morphology, this is considered unlikely. 2. 3.7 cm LEFT ovarian lesion compatible with a hemorrhagic cyst, O-RADS 2, no follow-up required. 3. Hysterectomy. 4. Additional description as above. Reading Location: [id number] CC: Dr. Richard Burgos MD; No Primary Care Physician Senior Technical Support Analyst: Signed Normal [facility] Urinalysis, Completeon 08-11 BACTERIA 0 SEEN Normal None Seen [facility] Comment on above: Order Comment: CLEAN CATCH Performed By: #### L [id number] ####[facility] [address] [place], [address] EPI,SQUAMOUS 0 SEEN Normal 5-10 [facility] Comment on above: Order Comment: CLEAN CATCH Performed By: #### L [id number] ####[facility] [address] [place], [address] Mucus Ql (Urine sed) 0 SEEN Normal [facility] Comment on above: Order Comment: CLEAN CATCH Performed By: #### L [id number] ####[facility] [address] [place], [address] RBC 0 SEEN Normal 0-5 [facility] Comment on above: Order Comment: CLEAN CATCH Performed By: #### L [id number] ####[facility] [address] [place], [address] WBC 0 SEEN Normal 0-5 [facility] Comment on above: Order Comment: CLEAN CATCH Performed By: #### L [id number] ####[facility] [address] [place], [address] Urine clarityOrdered By: Richard Burgos on 08-11-2024 Clarity (U) Clear Clear [facility] Urine color determinationOrd ered By: Richard Burgos on 08-11-2024 Color (U) Yellow Yellow [facility] Urine glucose detectionOrder ed By: Richard Burgos on 08-11-2024 Glucose Ql (U) Normal mg/dl Normal [facility] Urine leukocyte esterase det ection by dipstickOrdered By: Richard Burgos on 08-11-2024 Leukocyte esterase Test strip Ql (U) Negative Negative [facility] Urine pHOrdered By: Richard west on 08-11-2024 pH (U) 6.0 [pH] 5.0 - 8.0 [facility] Urine sediment bacteria coun t by microscopy (number/high power field)Ordered By: Richard Burgos on 08-11-2024 Bacteria LM.HPF (Urine sed) [#/Area] 0 /[HPF] None Seen [facility] Urine specific gravity measu rementOrdered By: Richard Burgos on 08-11-2024 Specific gravity (U) [Rel density] 1.010 1.002-1.030 [facility] Urine urobilinogen measureme ntOrdered By: Richard Burgos on 08-11-2024 Urobilinogen Ql (U) Normal mg/dl Normal [facility] White blood cell (WBC) count Ordered By: Richard Burgos on 08-11-2024 WBC (Bld) [#/Vol] 6.3 10*3/uL 4.4-11.0 [facility] White blood cell countOrdere d By: Richard Burgos on 08-11-2024 White blood cell count 0 SEEN /hpf 0-5 [facility] Emergency Department Summary on 08-09-2024 Emergency Department Summary [facility] Medical Records Department [address] [place] [address] Emergency Department Summary 08/09/24 MR#: [id number] Acct: [id number] Name: LM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 (more content not included)... Normal [facility] No Panel Informationon 04-26 Karla Sam PA-C 04/27/2024 12:15 AM Incision and Drainage Performed by: Karla Sam PA-C Authorized by: Karla Sam PA-C Consent: The indications, risks, benefits, alternatives to the procedure were explained to the patient/surrogate decision maker and their questions answered. Consent was obtained to proceed with the procedure. Timeout: Completed immediately prior to the start of the procedure which included verification of the correct patient, correct site and agreement on the procedure to be done. Indications: Indications: abscess Anesthetic: Local anesthetic used: lidocaine with epinephrine Preparation: Patient was prepped and draped in usual sterile fashion Skin prepped: skin prepped with povidone-iodine Procedure Details: Procedure Type: abscess Location 1: abdomen (Right groin) Complexity: simple Ultrasound guidance: no Needle aspiration: no needle aspiration Incision types: single straight Incision depth: subcutaneous Post-procedure: Wound treatment: dressing applied Specimen(s) sent to lab: no Drainage: bloody and purulent Drainage amount: scant Estimated blood loss: < 5 mL Specify Complication(s): no apparent complications Assistants & Supervision: I personally performed the procedure documented as signed by this procedure note Corrugator Supervisor(s): N/A No supervision required [facility] ED Provider Noteon ED Provider Note EMERGENCY DEPARTMENT ENCOUNTER Pt Name: Lm Alvarado Birthdate 1975 Date of evaluation: 04/01/2024 ED Provider: Hemal Choe DO CHIEF COMPLAINT Chief Complaint Patient presents with Back Pain Patient arrived to ED c/o back pain that radiates down left leg. States it is her sciatica. Pain 10/ HISTORY OF PRESENT ILLNESS (Location/Symptom, Timing/Onset, Context/Setting, Quality, Duration, Modifying Factors, Severity) Note limiting factors. I wore appropriate PPE for the entirety of this encounter. HPI Lm Alvarado is a 49 y.o. who presents to the emergency department for evaluation of left-sided back pain. Patient reports has a history of sciatica and states this feels the same. She had lumbar surgery 8 years ago. Has not had any recent injections in her back. Denies any specific injury, states when she woke up this morning she was having significant left-sided back pain that radiates all the way down her left leg. She denies any saddle anesthesia. She denies any bowel or bladder incontinence or retention. She denies any fevers or unintentional weight loss or known history of cancer. She denies any IV drug use. She tried Tylenol and ibuprofen prior to arrival without relief Nursing Notes were reviewed. Limitations to history: Outside historians: REVIEW OF SYSTEMS Review of Systems Pertinent positives and negatives as per HPI PAST MEDICAL HISTORY Past Medical History: Diagnosis Date Bipolar 1 disorder (HCC) Sleep deprivation SURGICAL HISTORY Past Surgical History: Procedure Laterality Date BACK SURGERY 2006 HYSTERECTOMY CURRENT MEDICATIONS Discharge Medication List as of 04/01/2024 5:52 AM ALLERGIES Flagyl [metronidazole] FAMILY HISTORY No family history on file. SOCIAL HISTORY Social History Socioeconomic History Marital status: Single Tobacco Use Smoking status: Every Day Types: Cigarettes Smokeless tobacco: Never Vaping Use Vaping status: Never Used Substance and Sexual Activity Alcohol use: Not Currently Drug use: Never SCREENINGS PHYSICAL EXAM ED Triage Vitals [04/01/24 0507] Temp Heart Rate Resp BP 36.7 ?C (98.1 ?F) 88 18 97/67 SpO2 Temp Source Heart Rate Source Patient Position 96 % Temporal Monitor -- BP Location FiO2 (%) -- -- Physical Exam Sitting upright, moderate distress secondary to pain No midline cervical thoracic or lumbar spine tenderness to palpation. Tender to palpation in the left paraspinal muscles Palpable DP pulses bilaterally. There is no edema noted to the legs. Normal strength throughout the bilateral lower extremities, equal bilaterally. Normal sensation in the bilateral lower extremities. Positive straight leg raise on the left DIAGNOSTIC RESULTS RADIOLOGY (Per Emergency Physician): Interpretation per the Radiologist below, if available at the time of this note: No orders to display LABS: Labs Reviewed - No data to display All other labs were within normal range or not returned as of this dictation. Medications orphenadrine (Norflex) injection 60 mg (60 mg IntraMUSCular Given 04/01/24555) oxyCODONE (Roxicodone) immediate release tablet 5 mg (5 mg Oral Given 04/01/24555) EMERGENCY DEPARTMENT COURSE and DIFFERENTIAL DIAGNOSIS/MDM: Vitals: Vitals: 04/01/24 0507 BP: 97/67 Pulse: 88 Resp: 18 Temp: 36.7 ?C (98.1 ?F) TempSrc: Temporal SpO2: 96% Patient is a 49-year-old female presenting to the emergency department for evaluation of left low back pain that radiates down her left leg Patient reports this feels similar to sciatica like she has had in the past. Concern for sciatica, lumbar radiculopathy. Physical exam is consistent with sciatica. She is neurovascularly intact. No red flags. Given multimodal pain control. Stable for discharge home with PCP follow-up. Diagnoses as of 04/03/242124 Acute left-sided low back pain with left-sided sciatica Diagnostic tests considered but not performed: External records reviewed: Diagnostics interpreted by me: Discussions with other clinicians: Admission Criteria: Chronic conditions impacting care: Social determinants of health affecting care: ED Medications managed: Medications orphenadrine (Norflex) injection 60 mg (60 mg IntraMUSCular Given 04/01/24555) oxyCODONE (Roxicodone) immediate release tablet 5 mg (5 mg Oral Given 04/01/24 0556) Prescription drugs considered: PROCEDURES: Unless otherwise noted below, none Procedures CRITICAL CARE TIME FINAL IMPRESSION 1. Acute left-sided low back pain with left-sided sciatica DISPOSITION Discharge 04/01/2024 05:48:15 AM PATIENT REFERRED TO: Delano Mayen DO [address] [place] [address] if symptoms do not resolve DISCHARGE MEDICATIONS: Discharge Medication List as of 04/01/2024 5:52 AM START taking these medications Details lidocaine (Lidoderm) 5 % patch Apply 1 patch topically d (more content not included)... Normal [facility] ED Provider Noteon ED Provider Note EMERGENCY DEPARTMENT ENCOUNTER Pt Name: Lm Alvarado Birthdate 1975 Date of evaluation: 02/24/2024 ED Provider: Jak Medellin MD CHIEF COMPLAINT Chief Complaint Patient presents with Cyst Pt c/o pain at cyst like raised area on R side of inner thigh. Pt states she first noticed it 2 days ago, believes she may cut her leg while shaving. HISTORY OF PRESENT ILLNESS (Location/Symptom, Timing/Onset, Context/Setting, Quality, Duration, Modifying Factors, Severity) Note limiting factors. I wore appropriate PPE for the entirety of this encounter. 48-year-old female with past medical history as listed below presents to the ER for evaluation of an area of erythema on her right proximal thigh. Patient states he noted the area after shaving. Patient states the area is grown in sinus become more painful. Patient denies discharge, fevers, chills, numbness, tingling. Patient states with ambulation she has increased pain. Patient has been taking [id number] medications without significant improvement of symptoms Lm Alvarado is a 48 y.o. who presents to the emergency department with chief complaint of skin infection Nursing Notes were reviewed. Limitations to history: None Outside historians: None REVIEW OF SYSTEMS Review of Systems All other systems reviewed and are negative. Pertinent positives and negatives as per HPI. PAST MEDICAL HISTORY Past Medical History: Diagnosis Date Bipolar 1 disorder (HCC) Sleep deprivation SURGICAL HISTORY Past Surgical History: Procedure Laterality Date BACK SURGERY 2006 HYSTERECTOMY CURRENT MEDICATIONS Discharge Medication List as of 02/24/2024 8:02 PM ALLERGIES Flagyl [metronidazole] FAMILY HISTORY No family history on file. SOCIAL HISTORY Social History Socioeconomic History Marital status: Single Tobacco Use Smoking status: Every Day Types: Cigarettes Smokeless tobacco: Never Vaping Use Vaping status: Never Used Substance and Sexual Activity Alcohol use: Not Currently Drug use: Never SCREENINGS PHYSICAL EXAM ED Triage Vitals [02/24/241943] Temp Heart Rate Resp BP 36.2 ?C (97.1 ?F) 77 16 106/68 SpO2 Temp Source Heart Rate Source Patient Position 98 % Temporal Monitor -- BP Location FiO2 (%) -- -- Physical Exam Vitals and nursing note reviewed. Constitutional: General: She is not in acute distress. Appearance: She is well-developed. HENT: Head: Normocephalic and atraumatic. Eyes: Conjunctiva/sclera: Conjunctivae normal. Cardiovascular: Rate and Rhythm: Normal rate and regular rhythm. Heart sounds: No murmur heard. Pulmonary: Effort: Pulmonary effort is normal. No respiratory distress. Breath sounds: Normal breath sounds. Abdominal: Palpations: Abdomen is soft. Tenderness: There is no abdominal tenderness. Musculoskeletal: General: No swelling. Cervical back: Neck supple. Skin: General: Skin is warm and dry. Capillary Refill: Capillary refill takes less than 2 seconds. Neurological: Mental Status: She is alert. Psychiatric: Mood and Affect: Mood normal. DIAGNOSTIC RESULTS Procedures/EKG: EKG was reviewed by myself. Physician EKG interpretation can be found in [facility] RADIOLOGY (Per Emergency Physician): Interpretation per the Radiologist below, if available at the time of this note: No orders to display ED BEDSIDE ULTRASOUND: Performed by ED Physician - none LABS: Labs Reviewed - No data to display All other labs were within normal range or not returned as of this dictation. EMERGENCY DEPARTMENT COURSE and DIFFERENTIAL DIAGNOSIS/MDM: Vitals: Vitals: 02/24/24194302/24/241943 BP: 106/68 Pulse: 77 Resp: 16 Temp: 36.2 ?C (97.1 ?F) TempSrc: Temporal SpO2: 98% Weight: 51.3 kg (113 lb) Height: 1.626 m (5' 4) Patient presenting with small area of induration no fluctuance or drainable collection noted. Informed patient to continue to apply warm compresses to the area and take the medications as prescribed. Informed the patient is the area that starts to organize she will most likely need an incision and drainage. The area is not appropriate for that at this time Diagnoses as of 02/26/24 1433 Skin infection Medications clindamycin (Cleocin) capsule 300 mg (300 mg Oral Given 02/24/242002) traMADol (Ultram) tablet 50 mg (50 mg Oral Given 02/24/242003) REVAL: CRITICAL CARE TIME CONSULTS: None PROCEDURES: Unless otherwise noted below, none Procedures Patients symptoms are consistent with sepsis, severe sepsis, or septic shock (If yes use .sepsiscoremeasure): FINAL IMPRESSION 1. Skin infection DISPOSITION Discharge 02/24/2024 07:58:37 PM PATIENT REFERRED TO: [address] [address] DISCHARGE MEDICATIONS: Discharge Medication List as of 02/24/2024 8:02 PM START taking these medications (more content not included)... Normal [facility] Abdomen/Pelvis W IV Cont ONL Yon 02-20-2024 Abdomen/Pelvis W IV Cont ONLY [facility] Imaging Services [address] [place] [id number] Abdomen/Pelvis W IV Cont ONLY MR#: [id number] Acct: [id number] Name: LM MONACO Rep #: [id number] : 1975 F 48 From: Hossein Day MD PCP: Care Physician,No Primary Status: REG ER Study: Abdomen/Pelvis W IV Cont ONLY Date of Exam: Exam# [id number] Ordering Dr: Juan Lovell MD [id number] STUDY: CT ABDOMEN AND PELVIS WITH CONTRAST REASON FOR EXAM: Female, 48 years old. Weight loss and pelvic mass. S/p hysterectomy years RADIATION DOSAGE (If Supplied By Facility): CTDIvol = ( 12.53 ) mGy, DLP = ( 241.19 ) mGycm TECHNIQUE: Transaxial images were obtained from the dome of the diaphragm to the symphysis pubis without oral contrast. IV 75mL Isovue-370 was administered. Sagittal and coronal images were reconstructed. Individualized dose optimization techniques were used for this CT. COMPARISON: None. FINDINGS: There is mild focal right lower lung airspace consolidation. The visualized portions of the heart are within normal limits. Normal liver. Normal gallbladder and extrahepatic biliary system. Normal spleen. Normal pancreas. Normal bilateral adrenal glands. There is 2.7 cm cyst of the right kidney. Normal left kidney. Normal visualized stomach. Normal small intestine. Normal colon. There is moderate stool. The appendix is visualized and appears normal. Normal abdominal aorta. Normal inferior vena cava. Normal retroperitoneum. Normal urinary bladder. There is absence of the uterus consistent with a prior hysterectomy. There is no free fluid in the abdomen or pelvis. Normal abdominal wall. Normal osseous structures. CT/Abdomen/Pelvis W IV Cont ONLY IMPRESSION: No dominant mass or obstruction. Small right lower lobe pneumonia. Electronically Signed: Hossein Day MD at 19:57 EST , CC: Dr. Juan oLvell MD; No Primary Care Physician Senior Technical Support Analyst: Signed Normal [facility] CBC W/Diff, Automatedon 02-06 Absolute Lymph 3.30 X10 3/uL Normal 0.83-4.51 [facility] Comment on above: Performed By: #### L 500.2500, L100.0100 #### [facility] [address] [place], [address] Absolute Neut 5.9 X10 3/uL Normal 2.0-7.7 [facility] Comment on above: Performed By: #### L 500.2500, L100.0100 #### [facility] [address] [place], [address] Basophils/100 WBC (Bld) 0.4 % Normal 0-1 [facility] Comment on above: Performed By: #### L 500.2500, L100.0100 #### [facility] [address] [place], [address] Eosinophils/100 WBC (Bld) 1.6 % Normal 0-5 [facility] Comment on above: Performed By: #### L 500.2500, L100.0100 #### [facility] [address] [place], [address] Erythrocyte distribution width (RBC) [Ratio] 13.7 % Normal 11.6-14.6 [facility] Comment on above: Performed By: #### L 500.2500, L100.0100 #### [facility] [address] [place], [address] Hematocrit (Bld) [Volume fraction] 42.0 % Normal 37-47 [facility] Comment on above: Performed By: #### L 500.2500, L100.0100 #### [facility] [address] [place], [address] Hemoglobin (Bld) [Mass/Vol] 14.7 g/dL Normal 12.0-15.0 [facility] Comment on above: Performed By: #### L 500.2500, L100.0100 #### [facility] [address] [place], [address] IG% 0.300 Normal 0.0-0.9 [facility] Comment on above: Result Comment: IG% - Immature Granulocytes (promyelocytes, myelocytes and metamyelocytes) > 1% indicates that a LEFT SHIFT is Present. Performed By: #### L 500.2500, L100.0100 #### [facility] [address] [place], [address] Lymphocytes/100 WBC (Bld) 32.2 % Normal 19-41 [facility] Comment on above: Performed By: #### L 500.2500, L100.0100 #### [facility] [address] [place], [address] MCH (RBC) [Entitic mass] 32.2 pg High 27.0-32.0 [facility] Comment on above: Performed By: #### L 500.2500, L100.0100 #### [facility] [address] [place], [address] MCHC (RBC) [Mass/Vol] 35.0 g/dL Normal 32-36 [facility] Comment on above: Performed By: #### L 500.2500, L100.0100 #### [facility] [address] [place], [address] MCV (RBC) [Entitic vol] 92.1 fL Normal 81-99 [facility] Comment on above: Performed By: #### L 500.2500, L100.0100 #### [facility] [address] [place], [address] Monocytes/100 WBC (Bld) 7.9 % Normal 0-10 [facility] Comment on above: Performed By: #### L 500.2500, L100.0100 #### [facility] [address] [place], [address] Neutrophils/100 WBC (Bld) 57.6 % Normal 47-70 [facility] Comment on above: Performed By: #### L 500.2500, L100.0100 #### [facility] [address] [place], [address] Nucleated RBC (Bld) [#/Vol] 0 10*3/uL Normal 0-5 [facility] Comment on above: Performed By: #### L 500.2500, L100.0100 #### [facility] [address] [place], [address] Platelet mean volume (Bld) [Entitic vol] 9.1 fL Normal 6.2-12.0 [facility] Comment on above: Performed By: #### L 500.2500, L100.0100 #### [facility] [address] [place], [address] Platelets (Bld) [#/Vol] 307 10*3/uL Normal 150-450 [facility] Comment on above: Performed By: #### L 500.2500, L100.0100 #### [facility] [address] [place], [address] RBC (Bld) [#/Vol] 4.56 10*6/uL Normal 4.2-5.[address] [facility] Comment on above: Performed By: #### L 500.2500, L100.0100 #### [facility] [address] [place], [address] RDW SD 46.8 fl High 35.1-43.9 [facility] Comment on above: Performed By: #### L 500.2500, L100.0100 #### [facility] [address] [place], [address] WBC (Bld) [#/Vol] 10.3 10*3/uL Normal 4.4-11.[address] [facility] Comment on above: Performed By: #### L 500.2500, L100.0100 #### [facility] [address] [place], [address] [facility] 02-20-2024 Albumin [Mass/Vol] 3.8 g/dL Normal 3.2-5.0 [facility] Comment on above: Performed By: #### L 500.2500, L100.0100 #### [facility] [address] [place], [address] Albumin/Globulin [Mass ratio] 1.2 {ratio} Normal 0.9-2.4 [facility] Comment on above: Performed By: #### L 500.2500, L100.0100 #### [facility] [address] [place], [address] ALK P 57 U/L Normal 45-117 [facility] Comment on above: Performed By: #### L 500.2500, L100.0100 #### [facility] [address] [place], [address] ALT [Catalytic activity/Vol] 19 U/L Normal 13-56 [facility] Comment on above: Performed By: #### L 500.2500, L100.0100 #### [facility] [address] [place], [address] AST [Catalytic activity/Vol] 10 U/L Low 15-37 [facility] Comment on above: Performed By: #### L 500.2500, L100.0100 #### [facility] [address] [place], [address] Bilirubin [Mass/Vol] 0.30 mg/dL Normal 0.20-1.00 [facility] Comment on above: Result Comment: For patients on eltrombopag therapy, use of Dimension [place] TBIL is not recommended. Performed By: #### L 500.2500, L100.0100 #### [facility] [address] [place], [address] BUN/CRE 12.9 RATIO Normal 10-20 [facility] Comment on above: Performed By: #### L 500.2500, L100.0100 #### [facility] [address] [place], [address] CA,Total 9.3 mg/dL Normal 8.5-10.1 [facility] Comment on above: Performed By: #### L 500.2500, L100.0100 #### [facility] [address] [place], [address] Chloride [Moles/Vol] 110 mmol/L High 98-107 [facility] Comment on above: Performed By: #### L 500.2500, L100.0100 #### [facility] [address] [place], [address] CO2 [Moles/Vol] 27.0 mmol/L Normal 21.0-32.0 [facility] Comment on above: Performed By: #### L 500.2500, L100.0100 #### [facility] [address] [place], [address] Creatinine [Mass/Vol] 0.85 mg/dL Normal 0.55-1.02 [facility] Comment on above: Result Comment: The validity of the calculated GFR GFRAA in patients over 70 years has not been determined. Clinical correlation is essential. Performed By: #### L 500.2500, L100.0100 #### [facility] [address] [place], [address] ECRCL 65.81 ml/min Normal [facility] Comment on above: Performed By: #### L 500.2500, L100.0100 #### [facility] [address] [place], [address] EST GFR - AA 91 mL/min Normal >60 [facility] Comment on above: Result Comment: Afri can Nauruan GFR Calc Performed By: #### L 500.2500, L100.0100 #### [facility] [address] [place], [address] GAP 5 Normal 5-15 [facility] Comment on above: Performed By: #### L 500.2500, L100.0100 #### [facility] [address] [place], [address] GFR/1.73 sq M.predicted among non-blacks MDRD (S/P/Bld) [Vol rate/Area] 75 mL/min/{1.73_m2} Normal >60 [facility] Comment on above: Result Comment: Non- GFR Calc Performed By: #### L 500.2500, L100.0100 #### [facility] [address] [place], [address] Globulin (S) [Mass/Vol] 3.2 g/dL Normal 2.2-4.2 [facility] Comment on above: Performed By: #### L 500.2500, L100.0100 #### [facility] [address] [place], [address] Glucose [Mass/Vol] 98 mg/dL Normal 74-106 [facility] Comment on above: Performed By: #### L 500.2500, L100.0100 #### [facility] [address] [place], [address] Potassium [Moles/Vol] 3.6 mmol/L Normal 3.5-5.1 [facility] Comment on above: Performed By: #### L 500.2500, L100.0100 #### [facility] [address] [place], [address] Sodium [Moles/Vol] 142 mmol/L Normal 136-145 [facility] Comment on above: Performed By: #### L 500.2500, L100.0100 #### [facility] [address] [place], [address] T PROT 7.0 g/dL Normal 6.4-8.2 [facility] Comment on above: Performed By: #### L 500.2500, L100.0100 #### [facility] [address] [place], [address] Urea nitrogen [Mass/Vol] 11 mg/dL Normal 7-18 [facility] Comment on above: Performed By: #### L 500.2500, L100.0100 #### [facility] [address] [place], [address] Emergency Department Summary on 02-20-2024 Emergency Department Summary [facility] Medical Records Department [address] [place] [address] Emergency Department Summary 02/20/24 MR#: [id number] Acct: [id number] Name: LM MONACO Rep #: [id number] : 1975 48 From: Juan Lovell MD PCP: Care Physician,No Primary Status:REG ER Location: ED HPI History of Present Illness Chief Complaint: General Illness Informant: patient Onset/Context/Timing Onset: Month(s) Context: Gradual Onset Timing: Continuous Current Severity: Mild Maximum Severity: Mild Narrative Narrative: 48-year-old female history of prior hysterectomy years ago. Was seen in the [facility] facilities about a month ago. Had a pelvic ultrasound that they thought was her uterus and they found that she had a hysterectomy they are concerned she might have a pelvic mass. They have been trying to get a hold of her but patient says she has not been taking calls. They did get a hold of her today and she came in to be evaluated. She believes that she has had a weight loss of around 17 to 24 pounds in the last 3 months. For the last 2 years she has had intermittent constipation and diarrhea. Patient has a history of anxiety and would like something for her nerves. No history of cancer. No other significant abdominal surgeries. Prior similar symptoms: Yes Recent Illness/Hospitalization: No PFSH PFSH Medical History History of pulmonary embolism Anxiety Allergy/AdvReac Type Severity Reaction Status Date / Time metronidazole (From Flagyl) Allergy Severe Anaphylaxis Verified 02/20/24 17:14 Surgical History History of back surgery H/O: hysterectomy Social History Smoking Status: Unknown if ever smoked ROS ROS ED ROS Narrative Unintentional weight loss. Constipation and diarrhea. Constitutional Constitutional ED: Denies chills or fever(s) Eyes Eyes: Denies blurry vision ENT ENT ED: Denies ear pain Cardiovascular Cardiovascular: Denies chest pain Respiratory/Chest Respiratory/Chest: Denies cough or dyspnea Gastrointestinal Gastrointestinal: Reports constipation and diarrhea; Denies abdominal pain, melena, nausea or vomiting Genitourinary Genitourinary ED: Denies dysuria or hematuria Musculoskeletal Musculoskeletal: Denies arthralgias Integumentary Denies abscess Neurologic Neurologic: Denies headache(s) Psychiatric Psychiatric: Reports anxiety Endocrine Endocrinology: Denies cold intolerance Hematologic/Lymphatic Hematologic/Lymphatic: Reports none Allergic/Immunologic Allergic/Immunologic ED: Denies mouth swelling, tongue swelling or urticaria EXAM Physical Exam Narrative Exam Narrative: Well-appearing middle-aged female. Vital signs are stable afebrile. She is anxious. H EENT exam unremarkable. Neck nontender. Lungs clear. Heart regular rate and rhythm rate about 95 no murmur. Chest wall and ribs nontender. Abdomen soft, nontender, nondistended normal bowel sounds peritoneal signs. No obvious mass. Back nontender. Moving all 4 extremities. Nontender no edema. Normal strength. Normal range of motion. She is awake and alert. No focal motor deficits. Const Vital Signs: 02/20/24 17:13 02/20/24 18:09 02/20/24 20:00 Temperature 97 F L Temperature Source Temporal Pulse Rate 99 67 Respiratory Rate 14 12 Respiratory Effort Normal Respiratory Pattern Normal Blood Pressure 136/81 H 94/76 Blood Pressure Mean 99 82 Pulse Ox 99 96 Oxygen Delivery Method Room Air Room Air Positive well nourished and well developed; Negative for obese, cachectic, contractures or unkempt General Appearance ED: well developed and NAD; Negative for unkempt, cachectic, contractures, cyanotic, diaphoretic or pallor Nutritional Appearance: Negative for cachectic or obese HEENT Reports moist mucous membranes Negative for trauma or tenderness Eyes PERRL and EOMs intact bilaterally Neck no lymphadenopathy, supple and no JVD General: Negative for tenderness Lymph Lymphatic: Negative for other Chest Wall inspection of chest normal and palpation of chest normal Resp normal respiratory effort and clear to auscultation bilaterally Effort and Inspection: Negative for retractions Auscultation: Negative for rales, rhonchi or wheezes Cardio regular rate, regular rhythm, S1 normal heart sound, S2 normal heart sound and no murmurs Rate: Negative for bradycardia or tachycardic Rhythm: Negative for abnormal rhythm GI normal to inspection, nondistended, normoactive bowel sounds, non-tender, non-distended and no masses; Negative for hepatosplenomegaly Inspection: Negative for abdominal distention Auscultation: normoactive bowel sounds Palpation: soft; (more content not included)... Normal [facility] Care Plan Noteon 01-31-2024 Personal Attendant Authentication Interface Message Text Problem: Safety: Goal: Patient will remain free of falls during hospital stay Outcome: Adequate for Discharge Goal: Free from injury during hospitalization Outcome: Adequate for Discharge Problem: Ineffective Coping Strategies Goal: Lm will be able to identify their triggers. Outcome: Adequate for Discharge Goal: [place] will be able to identify their negative coping mechanisms. Outcome: Adequate for Discharge Goal: Laeditha will be able to identify positive coping mechanisms. Outcome: Adequate for Discharge Goal: Lalena will enhance positive coping mechanisms. Outcome: Adequate for Discharge Goal: Lm will be able to verbalize their safety plan. Outcome: Adequate for Discharge Problem: Bipolar Disorder: Goal: Ability to stabilize mood will be demonstrated Outcome: Adequate for Discharge Problem: Psychiatric Follow Up Goal: Schedule psychiatric follow-up Outcome: Adequate for Discharge Normal [facility] [employer] Personal Attendant Authentication Interface Message Text Assumed care of patient and received report at 2330. At 0356 PRN Atarax given. Patient appears to sleep for... Assault precautions maintained.15 minute safety checks maintained. Problem: Safety: Goal: Patient will remain free of falls during hospital stay Outcome: Progressing Goal: Free from injury during hospitalization Outcome: Progressing Problem: Ineffective Coping Strategies Goal: Lm will be able to identify their triggers. Outcome: Progressing Goal: Lm will be able to identify their negative coping mechanisms. Outcome: Progressing Goal: Lm will be able to identify positive coping mechanisms. Outcome: Progressing Goal: Lalena will enhance positive coping mechanisms. Outcome: Progressing Goal: Lm will be able to verbalize their safety plan. Outcome: Progressing Problem: Bipolar Disorder: Goal: Ability to stabilize mood will be demonstrated Outcome: Progressing Normal [facility] Noteon 01-31-2024 Personal Attendant Authentication Interface Message Text Self-Care Mental Health Group Note 01/31/2024 Ratio - 2:2 Topic: Early Warning Signs Goal: identify early warning signs of mental health symptoms and action plans for them. Met with group for psychoeducation and skill session. Educated members on the importance of being aware of early warning signs for their mental health symptoms. Worked with group members to identify action plans to negate these early warning signs. Time Start: 1300 Time End: 1320 The patient was present for entire session Patient was able to identify early warning signs and action plans. Patient was only remaining group participant and requested to leave at 1320. Group was terminated at this point. Stefany Eller Behavioral Health Specialist Normal [employer] Authentication Interface Message Text Therapeutic Discussions Group Session Group Date: 01/31/2024 Group Ratio: 3:2 Topic: Stress Management - Managing Stress Steps and 4As of Stress Management Goal: Identify physiological and social signs of stress, identify both unhelpful and helpful ways of coping with stress, introduce the 4As of Stress Management and how to utilize them in daily routine, encourage socialization, build rapport, and create a therapeutic environment. Start time: 1105 End time: 1140 Lm MONACO Patient made great effort towards group participation, completed stress management worksheet. Pt was able to identify physiological and social signs of stress. Pt identified both unhelpful and helpful ways of coping with stress. Pt was actively engaged in discussion. Patient was pleasant, calm, and cooperative. No inappropriate behaviors observed. Ophelia Lewis, Behavioral Health Specialist Normal [facility] [employer] Interface Message Text Therapeutic Discussions Group Session Group Date: 01/31/2024 Group Ratio: 3:2 Topic: Community Goal: Increase emotional identification. Work with patients to identify coping and problemsolving strategies to assist in mental health symptom management for the day. Increase appropriate socialization of unit patients. Engaged group members in emotional check-in where they were encouraged to identify how they feel today, what is contributing to that feeling and ways to either maintain it (if positive) or to improve it (if identified as negative/unwanted). Identified with patients goals for the day and what resources/people they needed to connect with during the day to assist with addressing that goal. Encouraged group members to identify how they could best support each other in goal attainment. Start time: 1025 End time: 1045 Lm MONACO Patient made great effort towards group participation. When asked how she felt this morning, stated relaxed, identifying better sleep and medication adherence attributing to her mood. When asked if this admission has been beneficial or positive, stated yes. It's helped me let go for this period of time and really helped me remember to focus on myself and I can't take charge of everything. Pt stated better food options when asked how the hospital could improve. Stated her goal for today is to be ready to take control of my life. Patient was pleasant, calm, and cooperative. No inappropriate behaviors observed. Ophelia Lewis, Behavioral Health Specialist Normal [facility] [employer] Personal Attendant Authentication Interface Message Text Recreation AND Socialization Group Session Group Date: 01/31/2024 Group Ratio: 3:6 Activity: Recreation Room Activities: Paper Boxes Goal: Increased Activity and Improved Physical Wellbeing Start time: 0900 End time: 1055 Lm MONACO Patient fully engaged in the activity for the entire group time. Able to work independently for much of the group time. Excellent effort toward group participation. Danyell Jackson, RT Normal [facility] [employer] Assessment AND Plan Noteon 1 Personal Attendant Authentication Interface Message Text PO supplement Normal [facility] [employer] Authentication Interface Message Text Per primary team Normal [facility] Personal Attendant Authentication Interface Message Text - denies ZAMUDIO today -photophobia resolved; ? migraine, - assessed in ED and given compazine and Benadryl. As per pt it helped over night, but start hurting again in the morning - received dose of Imitrex yesterday - continue PRN Motrin q6h fro ZAMUDIO Normal [facility] [employer] Care Plan Noteon 01-30-2024 Personal Attendant Authentication Interface Message Text Pt interview conducted in the privacy of her room. Pt pleasant and cooperative. Pt denies SI/HI/AVH. PRN Imitrex 50 mg administered at 8:55 for migraine - effective. Pt complained of bad appetite, order for Boost tid obtained. Pt medication compliant. Pt on Assault and Elopement precautions. Pt is appropriate on milieu and follows unit guidelines. Pt encouraged to approach staff with any issues or concerns. Will continue to monitor. Problem: Safety: Goal: Patient will remain free of falls during hospital stay Outcome: Progressing Goal: Free from injury during hospitalization Outcome: Progressing Problem: Ineffective Coping Strategies Goal: Lalena will be able to identify their triggers. Outcome: Progressing Goal: Lalena will be able to identify their negative coping mechanisms. Outcome: Progressing Goal: Lalena will be able to identify positive coping mechanisms. Outcome: Progressing Goal: Lalena will enhance positive coping mechanisms. Outcome: Progressing Goal: Lalena will be able to verbalize their safety plan. Outcome: Progressing Problem: Bipolar Disorder: Goal: Ability to stabilize mood will be demonstrated Outcome: Progressing Normal [employer] Group Noteon 01-30-2024 Personal Attendant Authentication Interface Message Text Recreation AND Socialization Group Session Group Date: 01/30/2024 Group Ratio: 2:5 Activity: Recreation Activity: Outdoor recreation Goal: Create therapeutic environment/ encourage socialization and exercise Start time: 1430 End time: 1530 Lm MONACO Good effort toward group participation. Patient was calm and cooperative. No inappropriate behaviors observed. Patient spent time in the courtyard listening to music and playing basketball. Patient was social with peers and completed group activity. [facility] Normal [employer] Personal Attendant Authentication Interface Message Text Recreation AND Socialization Group Session Group Date: 01/30/2024 Group Ratio: 1:3 Activity: Recreation Activity: Train Dominoes Goal: Increased Activity and Improved Physical Wellbeing Start time: 1230 End time: 1335 Lm MONACO Patient fully engaged in the activity for the time that she was in the group. Excellent effort toward group participation. She left the group early to talk with staff. Danyell Jackson, RT Normal [employer] Progress Noteson 01-30-2024 Personal Attendant Authentication Interface Message Text ----- Attestation signed by Cheryle Shanks MD at 01/30/2024 7:29 PM Teaching Physician Note: I saw and evaluated the patient. I personally obtained the matos and critical portions of the history and physical exam. I reviewed the resident's documentation and discussed the patient with the resident. I agree with the resident's medical decision making as documented in the resident's note. Cheryle Shanks MD ----- [facility] Inpatient - Progress Note Lm MONACO 48 year old White female Admission date: 01/28/2024 Length of stay: 1 day(s) Reason for Admission: Bipolar disorder, Off medication since March 2023 Interval Summary: 01/28: Abilify 10 mg, D/c Zoloft 50 01/29: Increase Abilify 15 mg, Add seroquel 25 mg bedtime SUBJECTIVE Patient was seen in the hallway, states poor sleep, she has been intermittently sleeping. Reports the night time nurses did not listen to her and left the light ON after talking to her room mate even when they know she has migraine, says they are just on there phone, says that is the reason she did not ask for any PRN medications. When asked more about her sleep, she reports poor sleep since 1.5 years, but the medications did help. 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 Reports to be on Abilify 30 mg and Zoloft 150 mg. She goes to talk about how she has a stressful relationship with her boyfriend, who wants to know about every detail of her life. She goes on to talk about how she is going to be a grandmother. On unit in regards to trazodone, she states it does not touch her, melatonin gives her nightmares. Talked about adding seroquel today. She has been seen socializing on unit, she says she wants to tire herself so she gets better sleep. She was concerned regarding a lesion on her groin region, was told that the medicine team will follow up on that. OBJECTIVE In last 24H, pt received: all scheduled psychotropic medications PRN's: flexeril 10 mg, Trazodone 50 mg Per nursing notes: Pt has remained lying in bed exhibiting even, unlabored breaths for 6 hours thus far. Pt complained of right thigh pain with pain score of 8/10. Pt requested flexeril at 0240 and received prn flexeril 10 mg po as pt wanted to relieve muscle pain and return to sleep, medication deemed effective VITAL SIGNS Patient Vitals for the past 24 hrs: O2 Device 01/30/24 0801 Room air 01/30/24 0800 Room air Vital sign ranges over the past 24 hours (retrieved 01/30/2024 at 2:35 PM): No temperature found in past 24 hours. No data recorded No data recorded. No data recorded. No data recorded No data recorded No data recorded NEW LABS/IMAGING CT ABDOMEN/PELVIS W/ CONTRAST Result Date: 01/20/2024 Narrative: * * *Final Report* * * DATE OF EXAM: Jan 20 2024 3:10PM [facility] [place] - [place] ABD/PEL W IVCON / PROCEDURE REASON: Abdominal abscess/infection suspected * * * * Physician Interpretation * * * * RESULT: EXAMINATION: CT ABDOMEN AND PELVIS WITH IV CONTRAST CLINICAL HISTORY: Lower abdominal pain, worse in RLQ. Bright red blood Bms. Please eval for acute diverticulitis, acute appendicitis, or other acute visceral pathology. TECHNIQUE: CT of the abdomen and pelvis was performed using standard technique, scanning from just above the dome of the diaphragm to the symphysis pubis. MQ: CTAP_3 Contrast: IV: 100 ml of Omnipaque 300 CT Radiation dose: Integrated Dose-length product (DLP) for this visit = 198 mGy*cm. CT Dose Reduction Employed: Automated exposure control (AEC) COMPARISON: CTA abdomen and pelvis 04/11/2006 RESULT: Liver: No mass. Biliary: No bile duct dilation. Gallbladder is unremarkable. Spleen: No mass. No splenomegaly. Pancreas: No mass or duct dilation. Adrenals: No mass. Kidneys: 2.4 cm right interpolar parapelvic renal cyst (201:58). Few subcentimeter low attenuating cortical renal lesions, too small to characterize but likely benign. No calculus or hydronephrosis. GI tract: No dilation or wall thickening. Normal appendix. Lymph nodes: No abdominal or pelvic lymphadenopathy. Mesentery/Peritoneum: No ascites or mass. Retroperitoneum: No mass. Vasculature: - Abdominal aorta and iliac arteries: No aneurysm. - Celiac and SMA: Separate splenic artery and ASHLEY origins, a normal variant. Both these vessels and the SMA are patent. - Portal venous system (SMV, splenic vein, portal vein and branches): Patent. - Hepatic veins: Incompletely opacified, likely due to early phase of enhancement. Pelvis: No mass, ascites or fluid collection. Bones/Soft Tissues: Degenerative changes. Lower thorax: 1.7 x 0.9 cm subpleural n (more content not included)... Normal [employer] Personal Attendant Authentication Interface Message Text Assumed care of patient at 2300. Pt has remained lying in bed exhibiting even, unlabored breaths for 6 hours thus far. Pt complained of right thigh pain with pain score of 8/10. Pt requested flexeril at 0240 and received prn flexeril 10 mg po as pt wanted to relieve muscle pain and return to sleep, medication deemed effective. Staff will continue to monitor per ordered staff safety checks. Normal [employer] C-REACTIVE PROTEINon CRP [Mass/Vol] mg/L Normal <0.5 [employer] Comment on above: Performed By: #### C RP, TSH HS, HEPATIC #### [facility] [address] [place], [address] Care Plan Noteon 01-29-2024 Personal Attendant Authentication Interface Message Text Problem: Bipolar Disorder: Goal: Ability to stabilize mood will be demonstrated Outcome: Not Progressing Note: Client reports being mean to people over the past year, since ceasing medication, and that's not who I am. Problem: Psychiatric Follow Up Goal: Schedule psychiatric follow-up Outcome: Not Progressing Note: SW will connect pt to mental health services post-discharge. Pt indicates desire for ongoing therapy. SW - Inpatient Assessment Psych Unit 01/28/2024 Legal Status: Voluntary White female 48 year old Legal Next of Kin's Name: Abby Lawson (Mother, ) OK to Contact Next of Kin: Yes READMISSION LESS THAN 30 DAYS: No @[id number]@ INTERVIEWED: Patient COGNITIVE STATUS: Oriented to person, place, time and location History of Mental Illness: Bipolar;Anxiety (PTSD) Psychosocial: Social Stressors : Mental health Past Psych Admissions: Yes How Many: 1 Most Recent Date: 04/08/18 (precise date unknown) Where: [facility] History of Self Harming Behaviors: No Patient Active Problem List: Bipolar 1 disorder, manic, moderate (HCC) [F31.12] PCP VERIFIED: Yes (Dr. 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 Income: Wages Payor: [employer] / Plan: [employer] / Product Type: Indemnity History: No History of Abuse: No Legal History: Yes Current Probation [place] Contact: N/A Current Police Hold and Floor Aware: No Past Legal History: Patient endorses arrest in 2016, nothing noted on [facility] docket PATIENT TREATMENT PREFERENCES: Get back on meds, stablilize Nondenominational: Scientology Family History: None that is diagnosed Child Safety Concerns: No TENTATIVE DISCHARGE PLAN: Home - Own READMISSION RISK SCORE SHOULD BE: Remain Unchanged REASON READMISSION SCORE NEEDS ADJUSTED: n/a Social Work Treatment Plan LIVING SITUATION: Home - Own Verified Able to Return: Yes Temporary Data Entry Clerk: Contact Name: Juan Relationship: Roommate Phone Number: Unknown at this time HOME HEALTH CARE PRIOR TO ADMISSION: No TRANSPORTATION TO AND/OR FROM APPOINTMENTS: Drives Self Current Providers: Other (comment) (None) Barrel Loader Already Have a Barrel Loader: No Support Person Do You Have a Support Person: Yes Support Person Name: Juan Relationship : Rommate Contact Number: Unknown at this time Okay to Contact: Yes LINC Referral Appropriate for LINC Referral: Yes Interested in LINC: No Reason: Discharge agency not on LINC list Patient Goals PATIENT GOALS RELATED TO DISCHARGE: med compliance, stable HOW WILL PATIENT MEET THEIR GOALS: medication, sleep Strengths: Insight;Income;Housing Limitations: History of trauma;Non-adherence Online Advertising Director Impression: Lm Monaco presents as a 48 yr old white female with history of bipolar disorder and anxiety. Patient admitted to the hospital due to sleeplessness and mental health instability. Pt states that she has not slept for the past year and indicates that her mental health has been declining since March 2023 when she discontinued her medications (Abilify and Zoloft). Prior to this incident, pt has been compliant with medication for many years and this is the first time she ceased compliance. I was sick of chasing mental healthcare, pt states indicating challenges and cost of accessing mental healthcare and prescription medications, as well as feeling good and as if she might not need medications anymore. SW met with patient on unit to complete assessment and treatment planning. Patient present with crying affect and behavior was cooperative, depressed and anxious. Pt reported having a migraine since arrival that has not decreased with medication (pt reports taking tylenol for migraine). Pt is also focused on sleeping, stating I'm so tired. Pt was anxious to take previous medications and begin to feel better and resume healthy sleep pattern. Pt possesses insight between non-compliance with medication and increased mental health symptoms. Patient reporting the following current stressors: mental health, physical pain related to back surgery in 2005. Patient wishes to pursue medication management and therapy upon discharge. SW will continue to follow up for outpatient service. Patient requesting to be discharged to home, [address], [place], [place]. SW verified address and phone number on file. Patient indicated a willingness to sign CORIE for Juan (roommate) and Sh (more content not included)... Normal [employer] Personal Attendant Authentication Interface Message Text Assumed care for patient at 0700. Patient seen in room. Pt was tearful and upset. Reports struggling with sleep and a migraine. During interaction patient becomes disrespectful and argumentative with staff. Educated on appropriate behaviors and unit rules. Pt is receptive and apologizes for behaviors. Denies SI, HI,AVH. Reports having a ZAMUDIO/migraine. Provided Tylenol 1000 mg for 10/10 pain with Abilify and Zoloft. Educated on meds and understanding. Provided a ice pack and cold wash cloth for head. Denies any questions or concerns. Safety checks maintained. Dr. Leung and Dr. Ng notified of patient migraine. Imitrex 50 mg PO order and pt received at 1315. Safety checks maintained. Two hour follow up, pt reports a migraine still. Pt is given another dose of Imitrex 50 mg PO at 1515. Pt took cooperatively with a snack and drink. Safety checks maintained. Two hour follow up, Imitrex appears effective. Pt is resting in bed quietly with eyes closed. Respirations are equal and symmetrical. Safety checks maintained. Problem: Safety: Goal: Patient will remain free of falls during hospital stay Outcome: Progressing Note: Patient remains free from falls and injury this shift. Patient is on assault and escape precautions. Q6 min safety checks maintained. Goal: Free from injury during hospitalization Outcome: Progressing Note: Patient remains free from falls and injury this shift. Patient is on assault and escape precautions. Q6 min safety checks maintained. Problem: Ineffective Coping Strategies Goal: Lm will be able to identify their triggers. Outcome: Not Progressing Goal: [place] will be able to identify their negative coping mechanisms. Outcome: Not Progressing Goal: Laeditha will be able to identify positive coping mechanisms. Outcome: Not Progressing Goal: Lalena will enhance positive coping mechanisms. Outcome: Not Progressing Note: Patient encouraged to attend mental health groups to learn and utilize coping skills to control behaviors. Goal: Lm will be able to verbalize their safety plan. Outcome: Not Progressing Normal [employer] Personal Attendant Authentication Interface Message Text Patient did not attend group due to physical pain. Normal [employer] FULL LIPID PROFILEon 024 Cholesterol [Mass/Vol] 241 mg/dL High <200 [employer] Comment on above: Result Comment: Deanne chaidez: < 200 mg/dL Borderline High: 200-239 mg/dL High: > = 240 mg/dL Performed By: #### L IP, HEPATIC, CH8, HCG #### [facility] [address] [place] [address], Cholesterol in LDL [Mass/Vol] 176 mg/dL High <100 [employer] Comment on above: Performed By: #### L IP, HEPATIC, CH8, HCG #### [facility] [address] [place] [address], Cholesterol.total/Cho lesterol in HDL [Mass ratio] 4.73 {ratio} Normal <5.00 [facility] Comment on above: Performed By: #### L IP, HEPATIC, CH8, HCG #### [facility] [address] [place] [address], HDL CHOL 51 mg/dL Normal >50 [employer] Comment on above: Performed By: #### L IP, HEPATIC, CH8, HCG #### [facility] [address] [place] [address], LDL/HDL 3.45 Normal <3.57 [facility] Comment on above: Performed By: #### L IP, HEPATIC, CH8, HCG #### [facility] [address] [place], [place], NON-HDL CHOLESTEROL 190 mg/dL High <130 [facility] Comment on above: Performed By: #### L IP, HEPATIC, CH8, HCG #### [facility] [address] [place], [place], Triglyceride [Mass/Vol] 111 mg/dL Normal <150 [facility] Comment on above: Result Comment: Norm al: < 150 mg/dL Borderline High: 150-199 mg/dL High: 200-499 mg/dL Very High: > = 500 mg/dL Performed By: #### L IP, HEPATIC, CH8, HCG #### [facility] [address] [place], [place], H AND [facility] 01-29-2024 Personal Attendant Authentication Interface Message Text PATIENT ADMISSION MENTAL HEALTH ASSESSMENT - ADULT PSYCHIATRY IDENTIFICATION: Lm MONACO is a single 48 year old White female. Occupation: employed. Patient seen alone. HISTORY OF PRESENT ILLNESS: Per triage: Hasn't slept for a year Per chart review: Office Visit yesterday with Brenda Cleary for Anxiety 09/03/22 ED Visit to [facility] 47 y.o. female presenting with concerns for evaluation of Zoloft and Abilify. Patient states that she is between insurances and does not have a primary care provider to refill her medications. Patient states that she takes 30 mg of Abilify and 150 mg of Zoloft. She has been out of medication since yesterday. She is also complaining of right lower gum pain. She has been seen for this and was treated with antibiotics but has not yet been able to see a dentist. Medical Decision Making I saw and evaluated the patient. I have reviewed the chief complaint, triage note, past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 interview. Pt expresses strong desire and goal to sleep. Pt would like to be admitted and thus signed voluntary. Per Sally: Filled Written ID Drug QTY Days Prescriber RX # Dispenser Refill Daily Dose* Pymt Type [facility]INO ACCOUNTANT 01/14/2024 09/03/2023 2 Clonazepam 0.5 Mg Tablet 6.00 30 Ca Pop [id number] [facility] ([id number]) 0 0.20 LME Private Pay [place] 07/19/2023 07/19/2023 1 Oxycodone-Acetaminophen 5-325 12.00 3 Ke Dim [id number] [facility] ([id number]) 0 30.00 MME Comm Ins [place] 07/01/2023 07/01/2023 1 Oxycodone-Acetaminophen 5-325 5.00 4 Marjorie Naw [id number] [facility] ([id number]) 0 9.38 MME Private [place] PSYCH PRNS RECEIVED in the ED: compazine 10 mg, benadryl 50 mg, trazodone 50 mg, tylenol III. REVIEW OF PAST AND PRESENT SYMPTOMS: Per [facility] SUICIDE RISK ASSESSMENT C-SSRS [place]-Suicide Severity Rating Scale Able to complete [place]-Suicide Severity Rating Scale with Patient?: Yes 1) Wish to be : No 2) Current suicidal thoughts: No 6) C-SSRS Suicidal Behavior: No Risk of Suicide: Negative Screen Did patient score moderate or high risk on the C-SSRS?: No SAFE-T IV. Per Chart Review and Care Everywhere: Past psychiatric diagnoses: PAST PSY Dx: depressive disorder, bipolar disorder, anxiety disorder, and PTSD. Seen by a psychiatrist before? When AND Why: Yes, bipolar, depression, anxiety. Past suicidal attempts: no. Past psych admissions: yes, Number: 1 times. Why: 2019 for inability to care for self in setting of being taken off of depakote CURRENT psych meds: None. Current meds SIDE EFFECTS: None. PAST psych MEDS AND side effects: depakote - toxic, seizure per pt; abilify, zoloft V. SUBSTANCE USE HISTORY: Smoking: denies Alcohol use: denies Illicit drug use: denies but utox thc pos Smoking cessation counseling was not provided due to clinical condition including was not indicated due to clinical conditio (more content not included)... Normal [facility] ETHANOL, SERUMon 01-28-2024 Ethanol [Mass/Vol] mg/dL Normal None Detected [facility] Comment on above: Performed By: #### H EPATIC, ETOH, CH8, CK ####[facility] [address] [place], [address] HEPATIC FUNCTION PANELon Albumin [Mass/Vol] 4.6 g/dL Normal 3.5-5.7 [facility] Comment on above: Performed By: #### H EPATIC, ETOH, CH8, CK ####[facility] [address] [place], [address] ALK 45 IU/L Normal 34-104 [facility] Comment on above: Performed By: #### H EPATIC, ETOH, CH8, CK ####[facility] [address] [place], [address] ALT [Catalytic activity/Vol] 9 U/L Normal 7-52 [facility] Comment on above: Performed By: #### H EPATIC, ETOH, CH8, CK ####[facility] [address] [place], [address] AST [Catalytic activity/Vol] 13 U/L Normal 13-39 [facility] Comment on above: Performed By: #### H EPATIC, ETOH, CH8, CK ####[facility] [address] [place], [address] Bilirubin [Mass/Vol] 0.5 mg/dL Normal 0.3-1.0 [facility] Comment on above: Performed By: #### H EPATIC, ETOH, CH8, CK ####[facility] [address] [place], [address] Bilirubin.direct [Mass/Vol] 0.07 mg/dL Normal 0.03-0.18 [facility] Comment on above: Performed By: #### H EPATIC, ETOH, CH8, CK ####[facility] [address] [place], [address] Protein [Mass/Vol] 7.1 g/dL Normal 6.0-8.3 [facility] Comment on above: Performed By: #### H EPATIC, ETOH, CH8, CK ####[facility] [address] [place], [address] TOXICOLOGY SCREEN, UNCONFIRM EDon 01-28-2024 AMPH Negative Normal Negative [facility] Comment on above: Order Comment: This toxicology screen provides unconfirmed analytical results suitable for clinical management. Results are reported as positive (at or above the cutoff) or negative (below the cutoff). Amphetamines 1000 ng/mL Barbiturates 200 ng/mL Methadone 300 ng/mL Opiates 300 ng/mL Oxycodone 100 ng/mL Fentanyl 1 ng/mL Hydrocodone 100 ng/mL Benzodiazepines 200 ng/mL Cocaine Metabolite 300 ng/mL PCP 25 ng/mL THC 50 ng/mL Buprenorphine 5 ng/mL Alcohol 10 mg/dL Performed By: #### L IP, HEPATIC, CH8, HCG #### [facility] [address] [place] [address], BARBIT Negative Normal Negative [facility] Comment on above: Order Comment: This toxicology screen provides unconfirmed analytical results suitable for clinical management. Results are reported as positive (at or above the cutoff) or negative (below the cutoff). Amphetamines 1000 ng/mL Barbiturates 200 ng/mL Methadone 300 ng/mL Opiates 300 ng/mL Oxycodone 100 ng/mL Fentanyl 1 ng/mL Hydrocodone 100 ng/mL Benzodiazepines 200 ng/mL Cocaine Metabolite 300 ng/mL PCP 25 ng/mL THC 50 ng/mL Buprenorphine 5 ng/mL Alcohol 10 mg/dL Performed By: #### L IP, HEPATIC, CH8, HCG #### [facility] [address] [place] [address], BENZO Negative Normal Negative [facility] Comment on above: Order Comment: This toxicology screen provides unconfirmed analytical results suitable for clinical management. Results are reported as positive (at or above the cutoff) or negative (below the cutoff). Amphetamines 1000 ng/mL Barbiturates 200 ng/mL Methadone 300 ng/mL Opiates 300 ng/mL Oxycodone 100 ng/mL Fentanyl 1 ng/mL Hydrocodone 100 ng/mL Benzodiazepines 200 ng/mL Cocaine Metabolite 300 ng/mL PCP 25 ng/mL THC 50 ng/mL Buprenorphine 5 ng/mL Alcohol 10 mg/dL Performed By: #### L IP, HEPATIC, CH8, HCG #### [facility] [address] [place], [place], BUPRENORPHINE Negative Normal Cutoff: 5 [facility] [employer] [facility] Comment on above: Order Comment: This toxicology screen provides unconfirmed analytical results suitable for clinical management. Results are reported as positive (at or above the cutoff) or negative (below the cutoff). Amphetamines 1000 ng/mL Barbiturates 200 ng/mL Methadone 300 ng/mL Opiates 300 ng/mL Oxycodone 100 ng/mL Fentanyl 1 ng/mL Hydrocodone 100 ng/mL Benzodiazepines 200 ng/mL Cocaine Metabolite 300 ng/mL PCP 25 ng/mL THC 50 ng/mL Buprenorphine 5 ng/mL Alcohol 10 mg/dL Performed By: #### L IP, HEPATIC, CH8, HCG #### [facility] [address] [place] [address], COCAINE CL Negative Normal Negative [facility] [employer] [facility] Comment on above: Order Comment: This toxicology screen provides unconfirmed analytical results suitable for clinical management. Results are reported as positive (at or above the cutoff) or negative (below the cutoff). Amphetamines 1000 ng/mL Barbiturates 200 ng/mL Methadone 300 ng/mL Opiates 300 ng/mL Oxycodone 100 ng/mL Fentanyl 1 ng/mL Hydrocodone 100 ng/mL Benzodiazepines 200 ng/mL Cocaine Metabolite 300 ng/mL PCP 25 ng/mL THC 50 ng/mL Buprenorphine 5 ng/mL Alcohol 10 mg/dL Performed By: #### L IP, HEPATIC, CH8, HCG #### [facility] [address] [place] [address], Ethanol [Mass/Vol] Negative Normal Cutoff: 1 0 mg/dL [facility] [employer] [facility] Comment on above: Order Comment: This toxicology screen provides unconfirmed analytical results suitable for clinical management. Results are reported as positive (at or above the cutoff) or negative (below the cutoff). Amphetamines 1000 ng/mL Barbiturates 200 ng/mL Methadone 300 ng/mL Opiates 300 ng/mL Oxycodone 100 ng/mL Fentanyl 1 ng/mL Hydrocodone 100 ng/mL Benzodiazepines 200 ng/mL Cocaine Metabolite 300 ng/mL PCP 25 ng/mL THC 50 ng/mL Buprenorphine 5 ng/mL Alcohol 10 mg/dL Performed By: #### L IP, HEPATIC, CH8, HCG #### [facility] [address] [place] [address], FENTANYL Negative Normal Negative [facility] [employer] [facility] Comment on above: Order Comment: This toxicology screen provides unconfirmed analytical results suitable for clinical management. Results are reported as positive (at or above the cutoff) or negative (below the cutoff). Amphetamines 1000 ng/mL Barbiturates 200 ng/mL Methadone 300 ng/mL Opiates 300 ng/mL Oxycodone 100 ng/mL Fentanyl 1 ng/mL Hydrocodone 100 ng/mL Benzodiazepines 200 ng/mL Cocaine Metabolite 300 ng/mL PCP 25 ng/mL THC 50 ng/mL Buprenorphine 5 ng/mL Alcohol 10 mg/dL Performed By: #### L IP, HEPATIC, CH8, HCG #### [facility] [address] [place] [address], HYDROCODONE (PM) Negative Normal Negative [facility] Comment on above: Order Comment: This toxicology screen provides unconfirmed analytical results suitable for clinical management. Results are reported as positive (at or above the cutoff) or negative (below the cutoff). Amphetamines 1000 ng/mL Barbiturates 200 ng/mL Methadone 300 ng/mL Opiates 300 ng/mL Oxycodone 100 ng/mL Fentanyl 1 ng/mL Hydrocodone 100 ng/mL Benzodiazepines 200 ng/mL Cocaine Metabolite 300 ng/mL PCP 25 ng/mL THC 50 ng/mL Buprenorphine 5 ng/mL Alcohol 10 mg/dL Performed By: #### L IP, HEPATIC, CH8, HCG #### [facility] [address] [place] [address], Methadone Ql (U) Negative Normal Negative [facility] [employer] [facility] Comment on above: Order Comment: This toxicology screen provides unconfirmed analytical results suitable for clinical management. Results are reported as positive (at or above the cutoff) or negative (below the cutoff). Amphetamines 1000 ng/mL Barbiturates 200 ng/mL Methadone 300 ng/mL Opiates 300 ng/mL Oxycodone 100 ng/mL Fentanyl 1 ng/mL Hydrocodone 100 ng/mL Benzodiazepines 200 ng/mL Cocaine Metabolite 300 ng/mL PCP 25 ng/mL THC 50 ng/mL Buprenorphine 5 ng/mL Alcohol 10 mg/dL Performed By: #### L IP, HEPATIC, CH8, HCG #### [facility] [address] [place] [address], OPIATE Negative Normal Negative [facility] [employer] [facility] Comment on above: Order Comment: This toxicology screen provides unconfirmed analytical results suitable for clinical management. Results are reported as positive (at or above the cutoff) or negative (below the cutoff). Amphetamines 1000 ng/mL Barbiturates 200 ng/mL Methadone 300 ng/mL Opiates 300 ng/mL Oxycodone 100 ng/mL Fentanyl 1 ng/mL Hydrocodone 100 ng/mL Benzodiazepines 200 ng/mL Cocaine Metabolite 300 ng/mL PCP 25 ng/mL THC 50 ng/mL Buprenorphine 5 ng/mL Alcohol 10 mg/dL Performed By: #### L IP, HEPATIC, CH8, HCG #### [facility] [address] [place] [address], OXYCODONE Negative Normal Cutoff: 100 [facility] [employer] [facility] Comment on above: Order Comment: This toxicology screen provides unconfirmed analytical results suitable for clinical management. Results are reported as positive (at or above the cutoff) or negative (below the cutoff). Amphetamines 1000 ng/mL Barbiturates 200 ng/mL Methadone 300 ng/mL Opiates 300 ng/mL Oxycodone 100 ng/mL Fentanyl 1 ng/mL Hydrocodone 100 ng/mL Benzodiazepines 200 ng/mL Cocaine Metabolite 300 ng/mL PCP 25 ng/mL THC 50 ng/mL Buprenorphine 5 ng/mL Alcohol 10 mg/dL Result Comment: Oxyc odone and metabolites of Oxycodone (Oxymorphone, Noroxycodone, and Noroxymorphone) are measured/detected in this assay method. Performed By: #### L IP, HEPATIC, CH8, HCG #### [facility] [address] [place] [address], PHENCYCL Negative Normal Negative [facility] Comment on above: Order Comment: This toxicology screen provides unconfirmed analytical results suitable for clinical management. Results are reported as positive (at or above the cutoff) or negative (below the cutoff). Amphetamines 1000 ng/mL Barbiturates 200 ng/mL Methadone 300 ng/mL Opiates 300 ng/mL Oxycodone 100 ng/mL Fentanyl 1 ng/mL Hydrocodone 100 ng/mL Benzodiazepines 200 ng/mL Cocaine Metabolite 300 ng/mL PCP 25 ng/mL THC 50 ng/mL Buprenorphine 5 ng/mL Alcohol 10 mg/dL Performed By: #### L IP, HEPATIC, CH8, HCG #### [facility] [address] [place] [address], THC CL Positive Abnormal Negative [facility] Comment on above: Order Comment: This toxicology screen provides unconfirmed analytical results suitable for clinical management. Results are reported as positive (at or above the cutoff) or negative (below the cutoff). Amphetamines 1000 ng/mL Barbiturates 200 ng/mL Methadone 300 ng/mL Opiates 300 ng/mL Oxycodone 100 ng/mL Fentanyl 1 ng/mL Hydrocodone 100 ng/mL Benzodiazepines 200 ng/mL Cocaine Metabolite 300 ng/mL PCP 25 ng/mL THC 50 ng/mL Buprenorphine 5 ng/mL Alcohol 10 mg/dL Performed By: #### L IP, HEPATIC, CH8, HCG #### [facility] [address] [place] [address], URINALYSISon 01-28-2024 Glucose Ql (U) Negative Normal Negative [facility] [employer] [facility] Comment on above: Order Comment: A neg ative leukocyte esterase AND negative nitrite test or absence of pyuria (urine WBC count <= 5-10) make a UTI (urinary tract infection) very unlikely in a non-neutropenic adult (<=5% likelihood in many studies). A positive leukocyte esterase, nitrite and/or pyuria is a nonspecific result. This can be seen in conditions other than a UTI e.g. asymptomatic bacteriuria, gynecologic infections, sexually transmitted infections, and noninfectious conditions (positive predictive value for UTI around 50%) Performed By: #### L IP, HEPATIC, CH8, HCG #### [facility] [address] [place] [address], U APPEAR Slightly Cloudy Normal Clear [facility] Comment on above: Order Comment: A neg ative leukocyte esterase AND negative nitrite test or absence of pyuria (urine WBC count <= 5-10) make a UTI (urinary tract infection) very unlikely in a non-neutropenic adult (<=5% likelihood in many studies). A positive leukocyte esterase, nitrite and/or pyuria is a nonspecific result. This can be seen in conditions other than a UTI e.g. asymptomatic bacteriuria, gynecologic infections, sexually transmitted infections, and noninfectious conditions (positive predictive value for UTI around 50%) Performed By: #### L IP, HEPATIC, CH8, HCG #### [facility] [address] [place] [address], U BILI Negative Normal Negative [facility] Comment on above: Order Comment: A neg ative leukocyte esterase AND negative nitrite test or absence of pyuria (urine WBC count <= 5-10) make a UTI (urinary tract infection) very unlikely in a non-neutropenic adult (<=5% likelihood in many studies). A positive leukocyte esterase, nitrite and/or pyuria is a nonspecific result. This can be seen in conditions other than a UTI e.g. asymptomatic bacteriuria, gynecologic infections, sexually transmitted infections, and noninfectious conditions (positive predictive value for UTI around 50%) Performed By: #### L IP, HEPATIC, CH8, HCG #### [facility] [address] [place] [address], U BLOOD Negative Normal Negative [facility] Comment on above: Order Comment: A neg ative leukocyte esterase AND negative nitrite test or absence of pyuria (urine WBC count <= 5-10) make a UTI (urinary tract infection) very unlikely in a non-neutropenic adult (<=5% likelihood in many studies). A positive leukocyte esterase, nitrite and/or pyuria is a nonspecific result. This can be seen in conditions other than a UTI e.g. asymptomatic bacteriuria, gynecologic infections, sexually transmitted infections, and noninfectious conditions (positive predictive value for UTI around 50%) Performed By: #### L IP, HEPATIC, CH8, HCG #### [facility] [address] [place] [address], U COLOR Yellow Normal Yellow [facility] Comment on above: Order Comment: A neg ative leukocyte esterase AND negative nitrite test or absence of pyuria (urine WBC count <= 5-10) make a UTI (urinary tract infection) very unlikely in a non-neutropenic adult (<=5% likelihood in many studies). A positive leukocyte esterase, nitrite and/or pyuria is a nonspecific result. This can be seen in conditions other than a UTI e.g. asymptomatic bacteriuria, gynecologic infections, sexually transmitted infections, and noninfectious conditions (positive predictive value for UTI around 50%) Performed By: #### L IP, HEPATIC, CH8, HCG #### [facility] [address] [place] [address], U KETONE Negative Normal Negative [facility] Comment on above: Order Comment: A neg ative leukocyte esterase AND negative nitrite test or absence of pyuria (urine WBC count <= 5-10) make a UTI (urinary tract infection) very unlikely in a non-neutropenic adult (<=5% likelihood in many studies). A positive leukocyte esterase, nitrite and/or pyuria is a nonspecific result. This can be seen in conditions other than a UTI e.g. asymptomatic bacteriuria, gynecologic infections, sexually transmitted infections, and noninfectious conditions (positive predictive value for UTI around 50%) Performed By: #### L IP, HEPATIC, CH8, HCG #### [facility] [address] [place] [address], U LEUK Negative Normal Negative [facility] Comment on above: Order Comment: A neg ative leukocyte esterase AND negative nitrite test or absence of pyuria (urine WBC count <= 5-10) make a UTI (urinary tract infection) very unlikely in a non-neutropenic adult (<=5% likelihood in many studies). A positive leukocyte esterase, nitrite and/or pyuria is a nonspecific result. This can be seen in conditions other than a UTI e.g. asymptomatic bacteriuria, gynecologic infections, sexually transmitted infections, and noninfectious conditions (positive predictive value for UTI around 50%) Performed By: #### L IP, HEPATIC, CH8, HCG #### [facility] [address] [place] [address], U NITRITE Negative Normal Negative [facility] Comment on above: Order Comment: A neg ative leukocyte esterase AND negative nitrite test or absence of pyuria (urine WBC count <= 5-10) make a UTI (urinary tract infection) very unlikely in a non-neutropenic adult (<=5% likelihood in many studies). A positive leukocyte esterase, nitrite and/or pyuria is a nonspecific result. This can be seen in conditions other than a UTI e.g. asymptomatic bacteriuria, gynecologic infections, sexually transmitted infections, and noninfectious conditions (positive predictive value for UTI around 50%) Performed By: #### L IP, HEPATIC, CH8, HCG #### [facility] [address] [place], [place], U PH 7.0 Normal 5.0-8.0 [facility] Comment on above: Order Comment: A neg ative leukocyte esterase AND negative nitrite test or absence of pyuria (urine WBC count <= 5-10) make a UTI (urinary tract infection) very unlikely in a non-neutropenic adult (<=5% likelihood in many studies). A positive leukocyte esterase, nitrite and/or pyuria is a nonspecific result. This can be seen in conditions other than a UTI e.g. asymptomatic bacteriuria, gynecologic infections, sexually transmitted infections, and noninfectious conditions (positive predictive value for UTI around 50%) Performed By: #### L IP, HEPATIC, CH8, HCG #### [email or web address] [address] [place], [place], U PROTEIN Negative Normal Negative [facility] Comment on above: Order Comment: A neg ative leukocyte esterase AND negative nitrite test or absence of pyuria (urine WBC count <= 5-10) make a UTI (urinary tract infection) very unlikely in a non-neutropenic adult (<=5% likelihood in many studies). A positive leukocyte esterase, nitrite and/or pyuria is a nonspecific result. This can be seen in conditions other than a UTI e.g. asymptomatic bacteriuria, gynecologic infections, sexually transmitted infections, and noninfectious conditions (positive predictive value for UTI around 50%) Performed By: #### L IP, HEPATIC, CH8, HCG #### [email or web address] [address] [place], [place], U SG 1.020 Normal 1.005-1.030 [facility] Comment on above: Order Comment: A neg ative leukocyte esterase AND negative nitrite test or absence of pyuria (urine WBC count <= 5-10) make a UTI (urinary tract infection) very unlikely in a non-neutropenic adult (<=5% likelihood in many studies). A positive leukocyte esterase, nitrite and/or pyuria is a nonspecific result. This can be seen in conditions other than a UTI e.g. asymptomatic bacteriuria, gynecologic infections, sexually transmitted infections, and noninfectious conditions (positive predictive value for UTI around 50%) Performed By: #### L IP, HEPATIC, CH8, HCG #### [facility] [address] [place], [place], U UROBILI 0.2 mg/dL Normal 0.2 - 1.0 [facility] Comment on above: Order Comment: A neg ative leukocyte esterase AND negative nitrite test or absence of pyuria (urine WBC count <= 5-10) make a UTI (urinary tract infection) very unlikely in a non-neutropenic adult (<=5% likelihood in many studies). A positive leukocyte esterase, nitrite and/or pyuria is a nonspecific result. This can be seen in conditions other than a UTI e.g. asymptomatic bacteriuria, gynecologic infections, sexually transmitted infections, and noninfectious conditions (positive predictive value for UTI around 50%) Performed By: #### L IP, HEPATIC, CH8, HCG #### [facility] [address] [place], [place], ED NOTEon 01-23-2024 ED NOTE HNO ID: [id number] Author: MAT COLIN RN Service: ? Author Type: Registered Nurse Type: ED Notes Filed: 01/23/2024 00:34 Note Text: Patient given verbal and written instructions as pt is leaving AMA. Medications and follow up care discussed. Instructed to return to ED if conditions and symptoms persist or worsen. All questions addressed and answered pt verbalized understanding. NAD noted. [facility] ED NOTE HNO ID: [id number] Author: MAT COLIN RN Service: ? Author Type: Registered Nurse Type: ED Notes Filed: 01/23/2024 00:33 Note Text: Pt requesting to leave AMA. LIP aware. [facility] ALLIED HEALTHon 01-22-2024 ALLIED HEALTH HNO ID: [id number] Author: MARLENE ARELLANO RT(R) Service: Radiology Author Type: Technologist Type: Allied Health Filed: 01/22/2024 22:16 Note Text: Radiology Service Progress Note DATE OF SERVICE: January 22, 2024 TIME: 10:14 PM PATIENT IDENTITY VERIFICATION COMPLETED USING TWO (2) STANDARD IDENTIFIERS: Name and Date of confirmed by patient verbally and Name and Date of confirmed by identification band. FALL SCREENING: Has the patient had 2 falls in the last year or 1 fall with injury or currently using an Ambulatory Assistive Device (Walker, Cane, Wheelchair, Crutches, etc.)? Emergency Room Patient: Screened in ED PATIENT GENDER DATA: Female. status: : No status: NO. PATIENT RELEVANT IMPLANT DATA REVIEWED: Not Applicable PATIENT PRESENTS WITH AN IMPLANTABLE OR ATTACHED MITER GRINDER OPERATOR: No ALLERGIES: Reviewed and unchanged CONTRAST ALLERGY: NO. EXAM: CT -CONTRAST INDUCED NEPHROPATHY RISK FACTORS: Not applicable CREATININE: Creatinine Date Value Ref Range Status 01/22/2024 0.80 0.58 - 0.96 mg/dL Final 01/20/2024 0.75 0.58 - 0.96 mg/dL Final 05/03/2018 0.66 0.50 - 0.90 mg/dL Final Estimated Glomerular Filtration Rate Date Value Ref Range Status 01/22/2024 91 >=60 mL/min/1.73m? Final Comment: Estimated Glomerular Filtration Rate (eGFR) is calculated using the 2020 CKD-EPI creatinine equation. This equation utilizes serum creatinine, sex, and age as parameters. The creatinine assay has traceable calibration to isotope dilution-mass spectrometry. Refer to KDIGO guidelines for clinical interpretation. In patients with unstable renal function, e.g. those with acute kidney injury, the eGFR may not accurately reflect actual GFR. eGFR- Date Value Ref Range Status 05/03/2018 > 60 ml/min/1.73m2 Final Comment: eGFR >= 60 Indicates normal kidney function. * eGFR IS AN ESTIMATE * (AFR ANT = ) (non-AFR AM = NON-) MDRD calculation used in the eGFR should not be used to dose medications. For further limitations of the eGFR please refer to the Physician Website or the National Kidney Disease Education Program website (www.nkdep.nih.gov). P.O.C.T. RESULTS: N/A January 22, 2024 TREATMENT: N/A PERIPHERAL IV DATA: Inpatient - refer to [facility] documentation RADIOLOGY DEPARTMENT: CT; Exam(s) Completed: Abdomen/Pelvis SIGNATURE: Marlene Placido, RT(R) PATIENT NAME: Lm Monaco DATE: January 22, 2024 TIME: 10:14 PM [facility] CBC W Auto Differential pane l (Bld)on 01-22-2024 Basophils (Bld) [#/Vol] 0.05 10*3/uL Normal <0.11 [facility] Comment on above: Order Comment: Speci men Type: BLOOD SPECIMEN [facility] Address: [address] [place] [address] Performed By: #### 5 7021-8 #### [facility] CLIA [id number] [address] [place] [address] [place] Basophils/100 WBC (Bld) 0.6 % [facility] Comment on above: Order Comment: Speci men Type: BLOOD SPECIMEN [facility] Address: [address] [place] [address] Performed By: #### 5 7021-8 #### [facility] CLIA [id number] [address] [place] [address] [place] Differential cell count method Nom (Bld) Auto [facility] Comment on above: Order Comment: Speci men Type: BLOOD SPECIMEN [facility] Address: [address] [place] [address] Performed By: #### 5 7021-8 #### [facility] CLIA [id number] [address] [place] [address] [place] Eosinophils (Bld) [#/Vol] 0.14 10*3/uL Normal <0.46 [facility] Comment on above: Order Comment: Speci men Type: BLOOD SPECIMEN [facility] Address: [address] [place] [address] Performed By: #### 5 7021-8 #### [facility] CLIA [id number] [address] [place], [place] [id number] [place] Eosinophils/100 WBC (Bld) 1.6 % [facility] Comment on above: Order Comment: Speci men Type: BLOOD SPECIMEN [facility] Address: [address] [place] [address] Performed By: #### 5 7021-8 #### [facility] CLIA [id number] [address] [place] [address] [place] Erythrocyte distribution width (RBC) [Ratio] 13.3 % Normal 11.5-15.0 [facility] Comment on above: Order Comment: Speci men Type: BLOOD SPECIMEN [facility] Address: [address] [place] [address] Performed By: #### 5 7021-8 #### [facility] CLIA [id number] [address] [place] [address] [place] Hematocrit (Bld) [Volume fraction] 46.6 % High 36.0-46.0 [facility] Comment on above: Order Comment: Speci men Type: BLOOD SPECIMEN [facility] Address: [address] [place] [address] Performed By: #### 5 7021-8 #### [facility] CLIA [id number] [address] [place] [address] [place] Hemoglobin (Bld) [Mass/Vol] 16.1 g/dL High 11.5-15.5 [facility] Comment on above: Order Comment: Speci men Type: BLOOD SPECIMEN [facility] Address: [address] [place] [address] Performed By: #### 5 7021-8 #### [facility] CLIA [id number] [address] [place] [address] [place] Immature granulocytes (Bld) [#/Vol] 10*3/uL Normal <0.10 [facility] Comment on above: Order Comment: Speci men Type: BLOOD SPECIMEN [facility] Address: [address] [place] [address] Performed By: #### 5 7021-8 #### [facility] CLIA [id number] [address] [place] [address] [place] Immature granulocytes/100 WBC (Bld) 0.2 % Normal [facility] Comment on above: Order Comment: Speci men Type: BLOOD SPECIMEN [facility] Address: [address] [place] [address] Performed By: #### 5 7021-8 #### [facility] CLIA [id number] [address] [place] [address] [place] Lymphocytes (Bld) [#/Vol] 3.33 10*3/uL Normal 1.00-4.00 [facility] Comment on above: Order Comment: Speci men Type: BLOOD SPECIMEN [facility] Address: [address] [place] [address] Performed By: #### 5 7021-8 #### [facility] CLIA [id number] [address] [place] [address] [place] Lymphocytes/100 WBC (Bld) 38.7 % Normal [facility] Comment on above: Order Comment: Speci men Type: BLOOD SPECIMEN [facility] Address: [address] [place] [address] Performed By: #### 5 7021-8 #### [facility] CLIA [id number] [address] [place] [address] [place] MCH (RBC) [Entitic mass] 32.6 pg Normal 26.0-34.0 [facility] Comment on above: Order Comment: Speci men Type: BLOOD SPECIMEN [facility] Address: [address] [place] [address] Performed By: #### 5 7021-8 #### [facility] CLIA [id number] [address] [place] [address] [place] MCHC (RBC) [Mass/Vol] 34.5 g/dL Normal 30.5-36.0 [facility] Comment on above: Order Comment: Speci men Type: BLOOD SPECIMEN [facility] Address: [address] [place] [address] Performed By: #### 5 7021-8 #### [facility] CLIA [id number] [address] [place] [address] [place] MCV (RBC) [Entitic vol] 94.3 fL Normal 80.0-100.0 [facility] Comment on above: Order Comment: Speci men Type: BLOOD SPECIMEN [facility] Address: [address] [place] [address] Performed By: #### 5 7021-8 #### [facility] CLIA [id number] [address] [place] [address] [place] Monocytes (Bld) [#/Vol] 0.74 10*3/uL Normal <0.87 [facility] Comment on above: Order Comment: Speci men Type: BLOOD SPECIMEN [facility] Address: [address] [place] [address] Performed By: #### 5 7021-8 #### [facility] CLIA [id number] [address] [place] [address] [place] Monocytes/100 WBC (Bld) 8.6 % Normal [facility] Comment on above: Order Comment: Speci men Type: BLOOD SPECIMEN [facility] Address: [address] [place] [address] Performed By: #### 5 7021-8 #### [facility] CLIA [id number] [address] [place] [address] [place] Neutrophils (Bld) [#/Vol] 4.33 10*3/uL Normal 1.45-7.50 [facility] Comment on above: Order Comment: Speci men Type: BLOOD SPECIMEN [facility] Address: [address] [place] [address] Performed By: #### 5 7021-8 #### [facility] CLIA [id number] [address] [place] [address] [place] Neutrophils/100 WBC (Bld) 50.3 % Normal [facility] Comment on above: Order Comment: Speci men Type: BLOOD SPECIMEN [facility] Address: [address] [place] [address] Performed By: #### 5 7021-8 #### [facility] CLIA [id number] [address] [place] [address] [place] Nucleated RBC (Bld) [#/Vol] 10*3/uL Normal <0.01 [facility] Comment on above: Order Comment: Speci men Type: BLOOD SPECIMEN [facility] Address: [address] [place] [address] Performed By: #### 5 7021-8 #### [facility] IA [id number] [address] [place] [address] [place] Nucleated RBC/100 WBC (Bld) [Ratio] 0.0 /100 WBC Normal [facility] Comment on above: Order Comment: Speci men Type: BLOOD SPECIMEN [facility] Address: [address] [place] [address] Performed By: #### 5 7021-8 #### [facility] IA [id number] [address] [place] [address] [place] Platelet mean volume (Bld) [Entitic vol] 9.2 fL Normal 9.0-12.7 [facility] Comment on above: Order Comment: Speci men Type: BLOOD SPECIMEN [facility] Address: [address] [place] [address] Performed By: #### 5 7021-8 #### [facility] IA [id number] [address] [place] [address] [place] Platelets (Bld) [#/Vol] 331 10*3/uL Normal 150-400 [facility] Comment on above: Order Comment: Speci men Type: BLOOD SPECIMEN [facility] Address: [address] [place] [address] Performed By: #### 5 7021-8 #### [facility] CLIA [id number] [address] [place] [address] [place] RBC (Bld) [#/Vol] 4.94 10*6/uL Normal 3.90-5.20 [facility] Comment on above: Order Comment: Speci men Type: BLOOD SPECIMEN [facility] Address: [address] [place], [place] [address] Performed By: #### 5 7021-8 #### [facility] CLIA [id number] [address] [place] [address] [place] WBC (Bld) [#/Vol] 8.61 10*3/uL Normal 3.70-11.00 [facility] Comment on above: Order Comment: Speci men Type: BLOOD SPECIMEN [facility] Address: [address] [place] [place] [id number] Performed By: #### 5 7021-8 #### [facility] CLIA [id number] [address] [place] [address] [place] ABD/PEL W IVCONon 024 CT ABD/PEL W IVCON * * *Final Report* * * * * * SEE BOTTOM OF REPORT FOR ADDENDED TEXT * * * DATE OF EXAM: Jan 22 2024 10:14PM SUGEY 0530 - CT ABD/PEL W IVCON / PROCEDURE REASON: Abdominal pain, acute, nonlocalized * * * * Physician Interpretation * * * * * * * * * * * * ORIGINAL REPORT * * * * * * * * EXAMINATION: CT ABDOMEN AND PELVIS WITH IV CONTRAST CLINICAL HISTORY: Abdominal pain, acute, nonlocalized. TECHNIQUE: CT of the abdomen and pelvis was performed using standard technique, scanning from just above the dome of the diaphragm to the symphysis pubis. MQ: CTAP_3 Contrast: IV: 100 ml of Omnipaque 350 CT Radiation dose: Integrated Dose-length product (DLP) for this visit = 267 mGy*cm. CT Dose Reduction Employed: Automated exposure control(AEC) and iterative recon COMPARISON: CT dated 01/20/2024. RESULT: Liver: Unchanged subcentimeter low-attenuation lesion in the lateral segment left hepatic lobe which is too small to characterize (series 2 image 33). This lesion is statistically likely to be benign in the absence of history of malignancy. Biliary: No bile duct dilation. Gallbladder is nondistended and otherwise unremarkable. No calcified gallstone. Spleen: No mass. No splenomegaly. Pancreas: No mass or duct dilation. Adrenals: No mass. Kidneys: No renal collecting system dilation or stone. Unchanged simple appearing right interpolar region renal cortical cyst measuring 2.4 cm. Additional subcentimeter low-attenuation right renal cortical lesions are too small to characterize but unchanged. These lesions appear well-defined and there statistically likely to represent subcentimeter cysts. GI tract: Stomach is partially distended with fluid and ingested material. No small or large bowel dilation. Normal appendix. Transverse, descending, and sigmoid colon are largely decompressed. Rectum and anal canal are nondistended. Lymph nodes: No abdominal or pelvic lymphadenopathy. Mesentery/Peritoneum: No ascites or mass. Retroperitoneum: No mass. Vasculature: - Abdominal aorta and iliac arteries: Minimal atherosclerotic calcifications without aneurysm. - Celiac and SMA: Separate splenic artery and ASHLEY origins, a normal variant. Both these vessels and the SMA are patent. - Portal venous system (SMV, splenic vein, portal vein and branches): Patent. - Hepatic veins: Incompletely opacified, likely due to early phase of enhancement. Pelvis: Uterus is anteverted. There is a small amount of gas in the endometrial canal.. Urinary bladder is fluid-filled and unremarkable. No gross mass or loculated fluid collection in the pelvis. Trace free fluid in the pelvis, likely physiologic in a patient of this age. Bones/Soft Tissues: No aggressive lytic or sclerotic osseous lesions. Mild degenerative changes the lower thoracic and lumbar spine.. Lower thorax: Unchanged chronic rounded atelectasis in the right lower lobe posteriorly which has been present as far back as 2006. Visualized lung bases are otherwise clear. Localizer images: No other significant finding. IMPRESSION: No definite evidence of acute process in the abdomen or pelvis. There is gas in the endometrial canal which can be seen in the setting of recent sexual activity. Please correlate with patient's symptoms to exclude the less likely possibility of endometritis. Additional nonacute and incidental findings as described. * * * * * * * * ADDENDUM #1 * * * * * * * * Addendum is made to correct interpretation. Additional information provided by the ordering provider is that the patient has a history of prior hysterectomy. Was thought to be the uterus represents a thickened vaginal cuff. There are pertinent sections of the report should read as follows: FINDINGS: Pelvis: Uterus is surgically absent. There is thickening of the vaginal cuff. There is gas within the vaginal cuff. Urinary bladder is fluid-filled and unremarkable. No gross mass or loculated fluid collection in the pelvis. Trace free fluid in the pelvis, likely physiologic in a patient of this age. IMPRESSION: No definite evidence of acute process in the abdomen or pelvis. There is thickening of the vaginal cuff with internal gas. Correlation with direct inspection the vaginal cuff is for assessment of the cause of mural thickening. Gas within the vagina can be seen in the setting of recent sexual activity or recent instrumentation. Additional nonacute and incidental findings as described. 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 metabolic 2000 panelon 01-22-2024 Albumin [Mass/Vol] 4.3 g/dL Normal 3.9-4.9 [facility] Comment on above: Order Comment: Speci men Type: BLOOD SPECIMEN [facility] Address: [address] [place] [address] Performed By: #### 2 4323-8, 3040-3, #### [facility] CLIA [id number] [address] [place] [address] [place] ALP [Catalytic activity/Vol] 62 U/L Normal 34-123 [facility] Comment on above: Order Comment: Speci men Type: BLOOD SPECIMEN [facility] Address: [address] [place], [place] [address] Performed By: #### 2 4323-8, 3040-3, #### [facility] CLIA [id number] [address] [place], [place] [address] [place] ALT [Catalytic activity/Vol] 10 U/L Normal 7-38 [facility] Comment on above: Order Comment: Speci men Type: BLOOD SPECIMEN [facility] Address: [address] [place] [address] Performed By: #### 2 4323-8, 3040-3, #### [facility] CLIA [id number] [address] [place], [place] [address] [place] Anion gap [Moles/Vol] 9 mmol/L Normal 8-15 [facility] Comment on above: Order Comment: Speci men Type: BLOOD SPECIMEN [facility] Address: [address] [place] [address] Performed By: #### 2 4323-8, 3040-3, 55497-4 #### [facility] CLIA [id number] [address] [place], [place] [address] [place] AST [Catalytic activity/Vol] 17 U/L Normal 13-35 [facility] Comment on above: Order Comment: Speci men Type: BLOOD SPECIMEN [facility] Address: [address] [place] [address] Performed By: #### 2 4323-8, 0-3, 78091-1 #### [facility] CLIA [id number] [address] [place] [address] [place] Bilirubin [Mass/Vol] 0.3 mg/dL Normal 0.2-1.3 [facility] Comment on above: Order Comment: Speci men Type: BLOOD SPECIMEN [facility] Address: [address] [place] [address] Performed By: #### 2 4323-8, 0-3, 78810-2 #### [facility] CLIA [id number] [address] [place], [place] [address] [place] Calcium [Mass/Vol] 9.6 mg/dL Normal 8.5-10.2 [facility] Comment on above: Order Comment: Speci men Type: BLOOD SPECIMEN [facility] Address: [address] [place] [address] Performed By: #### 2 4323-8, 3040-3, 42033-1 #### [facility] CLIA [id number] [address] [place], [place] [address] [place] Chloride [Moles/Vol] 102 mmol/L Normal 98-107 [facility] Comment on above: Order Comment: Speci men Type: BLOOD SPECIMEN [facility] Address: [address] [place] [address] Performed By: #### 2 4323-8, 3040-3, 53655-4 #### [facility] CLIA [id number] [address] [place], [place] [address] [place] CO2 [Moles/Vol] 30 mmol/L Normal 22-30 [facility] Comment on above: Order Comment: Speci men Type: BLOOD SPECIMEN [facility] Address: [address] [place] [address] Performed By: #### 2 4323-8, 3040-3, #### [facility] CLIA [id number] [address] [place] [address] [place] Creatinine [Mass/Vol] 0.80 mg/dL Normal 0.58-0.96 [facility] Comment on above: Order Comment: Speci men Type: BLOOD SPECIMEN [facility] Address: [address] [place] [address] Performed By: #### 2 4323-8, 3040-3, 25420-7 #### [facility] CLIA [id number] [address] [place] [address] [place] Creatinine and Glomerular filtration rate.predicted panel (S/P/Bld) 91 mL/min/1.73m??? Normal >=60 [facility] Comment on above: Order Comment: Speci men Type: BLOOD SPECIMEN [facility] Address: [address] [place] [address] Result Comment: Ludy mated Glomerular Filtration Rate (eGFR) is calculated using the 2020 CKD-EPI creatinine equation. This equation utilizes serum creatinine, sex, and age as parameters. The creatinine assay has traceable calibration to isotope dilution-mass spectrometry. Refer to KDIGO guidelines for clinical interpretation. In patients with unstable renal function, e.g. those with acute kidney injury, the eGFR may not accurately reflect actual GFR. Performed By: #### 2 4323-8, 3040-3, 24127-6 #### [facility] CLIA [id number] [address] [place] [address] [place] Glucose [Mass/Vol] 92 mg/dL Normal 74-99 [facility] Comment on above: Order Comment: Roberto mcpherson Type: BLOOD SPECIMEN [facility] Address: [address] [place] [address] Result Comment: The [place] Diabetes Association (ADA) provides guidance for cutoff values for fasting glucose and random glucose. The ADA defines fasting as no caloric intake for at least 8 hours. Fasting plasma glucose results between 100 to 125 mg/dL indicate increased risk for diabetes (prediabetes). Fasting plasma glucose results greater than or equal to 126 mg/dL meet the criteria for diagnosis of diabetes. In the absence of unequivocal hyperglycemia, results should be confirmed by repeat testing. In a patient with classic symptoms of hyperglycemia or hyperglycemic crisis, random plasma glucose results greater than or equal to 200 mg/dL meet the criteria for diagnosis of diabetes. Reference: Standards of Medical Care in Diabetes 2016, [place] [employer] Association. Diabetes Care. 2016.39(Suppl 1). Performed By: #### 2 4323-8, 3039-3, #### [facility] CLIA [id number] [address] [place] [address] [place] Potassium [Moles/Vol] 4.5 mmol/L Normal 3.7-5.1 [facility] Comment on above: Order Comment: Roberto mcpherson Type: BLOOD SPECIMEN [facility] Address: [address] [place] [address] Performed By: #### 2 4323-8, 3043, #### [facility] IA [id number] [address] [place], [place] [address] [place] Protein [Mass/Vol] 7.5 g/dL Normal 6.3-8.0 [facility] Comment on above: Order Comment: Roberto mcpherson Type: BLOOD SPECIMEN [facility] Address: [address] [place] [address] Performed By: #### 2 4323-8, 3040-3, #### [facility] IA [id number] [address] [place], [place] [address] [place] Sodium [Moles/Vol] 141 mmol/L Normal 136-144 [facility] Comment on above: Order Comment: Speci men Type: BLOOD SPECIMEN [facility] Address: [address] [place] [address] Performed By: #### 2 4323-8, 3040-3, 00415-3 #### [facility] CLIA [id number] [address] [place], [place] [address] [place] Urea nitrogen [Mass/Vol] 14 mg/dL Normal 7-21 [facility] Comment on above: Order Comment: Speci men Type: BLOOD SPECIMEN [facility] Address: [address] [place] [address] Performed By: #### 2 4323-8, 3040-3, 40778-3 #### [facility] CLIA [id number] [address] [place], [place] [address] [facility] ED NOTEon 01-22-2024 ED NOTE HNO ID: [id number] Author: SPRING HALL RN Service: ? Author Type: Registered Nurse Type: ED Notes Filed: 01/22/2024 22:32 Note Text: Assumed pt care from previous RN. [facility] ED NOTE HNO ID: [id number] Author: NARESH HUNT RN Service: ? Author Type: Registered Nurse Type: ED Notes Filed: 01/22/2024 22:02 Note Text: Patient resting in bed in no acute distress. Bed in low, locked position and call light with in reach. Patient has no needs or complaints at this time. Plan of care ongoing. [facility] ED NOTE HNO ID: [id number] Author: NARESH HUNT RN Service: ? Author Type: Registered Nurse Type: ED Notes Filed: 01/22/2024 20:12 Note Text: Pt resting in bed in no acute distress. No needs or complaints at this time. Safety maintained with bed in low, locked position. [facility] ED NOTE HNO ID: [id number] Author: GORAN MILTON RN Service: ? Author Type: Registered Nurse Type: ED Notes Filed: 01/22/2024 18:30 Note Text: Pt has blood in stool x 2 day with nausea, [place] [facility] wanted to admit for colonoscopy but pt was unable to. Pt states nausea is getting worse. [facility] ED PROV NOTEon 01-22-2024 ED PROV NOTE HNO ID: [id number] Author: HARRY CROSS MD Service: Emergency Medicine Author Type: Physician Type: ED Provider Notes Filed: 01/23/2024 00:52 Note Text: ED Provider Note Patient Name: Lm Monaco : 1975 SERVICE DATE: 01/22/24 History Patient presents with: Rectal Bleeding HPI 48 y/o female presents with a chief complaint of rectal bleeding. Pt states it started 2 days ago. Pt states she was sleeping, woke-up, went to the bathroom. Pt states she normally has diarrhea, she does not have normal BM's. Pt denies any cramping with the BM's. She states it was just more watery. Pt does admit to pain and nausea today. Pt states it woke her up today. Pt denies any fevers. Pt states she was at work. 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 She stayed overnight at work, had BRBPR, states it filled the bowl and she went to get evaluated. Pt denies any inadvertent trauma. States she does have anal intercourse with her boyfriend, denies any pain or bleeding with anal sex. States the vaginal is more aggressive than the anal. Pt states right now she feels like she is having contractions to have a baby. Pt states it started about noon today and it has been pretty constant throughout the day. No other complaints. No past medical history on file. No past surgical history on file. No family history on file. Social History Tobacco Use - Smoking status: Every Day Current packs/day: 1.00 Types: Cigarettes - Smokeless tobacco: Not on file Substance and Sexual Activity - Alcohol use: Not on file - Drug use: Not on file - Sexual activity: Not on file ALLERGIES Allergen Reactions - Flagyl [Metronidazo* Anaphylaxis Review of Systems All other systems reviewed and are negative. Physical Exam Vitals [01/22/24 1827] BP Pulse Temp Temp src Resp SpO2 Weight Height 91/55 75 36.8 ?C (98.2 ?F) Oral 18 99 % 46.7 kg (103 lb) -- Physical Exam VITAL SIGNS: As stated on chart. CONSTITUTIONAL: Alert and oriented x 3, no acute distress, speaking in full sentences. SKIN: Warm, dry, no signs of trauma or rashes noted. HEENT: Normocephalic, atraumatic, PERRLA, EOMI, trachea midline, uvula midline with appropriate soft palate rise. There is no oropharyngeal edema or exudates noted. There is no lymphadenopathy noted. Neck is supple. There's no meningismus, no rhinorrhea or otorrhea noted. TMs are pearly miranda, positive light reflex bilaterally and no hemotympanums or magallanes signs noted. No pain on palpation of calvarium or facial bones. HEART: Regular rate and rhythm. No murmurs, gallops or rubs noted. LUNGS: Clear to auscultation bilaterally. No wheezes, rales or rhonchi noted. ABDOMEN: Positive bowel sounds. Soft, nondistended, no rebound tenderness. No organomegaly. No rigidity or guarding noted. Positive pain on palpation to the right lower and right mid abdomen. No specific McBurney's point tenderness. Digital rectal exam: This was performed in the presence of a female nurse independent sales representative. There were nonthrombosed external hemorrhoids noted. There was likely 1 small internal hemorrhoid that had point tenderness. EXTREMITIES: No cyanosis, clubbing or edema noted. Full active range of motion of all 4 extremities. 5/5 muscle grading of upper and lower extremities bilaterally. NEUROVASCULAR: No neurovascular deficits noted. No sensory deficits noted distally. 2+ peripheral pulses noted bilaterally. PSYCH: Patient had appropriate mood, affect and behavior on examination. Diagnostic Testing ED Labs Ordered and Reviewed COMPLETE BLOOD COUNT AND DIFFERENTIAL - Abnormal; Notable for the following components: Result Value Ref Range Hemoglobin 16.1 (*) 11.5 - 15.5 g/dL Hematocrit 46.6 (*) 36.0 - 46.0 % All other components within normal limits COMPREHENSIVE METABOLIC PANEL - Normal MAGNESIUM - Normal LIPASE - Normal URINALYSIS WITH MICROSCOPIC, REFLEX CULTURE - Normal OCCULT BLD EXAM-DIAG CT ABD/PEL W IVCON (Results Pending) Procedures ED Course / Clinical Impression ED Course as of 01/23/24 0031 Others' Documentation Wed Jan 22, 2024 2326 There was not enough stool for the lab to run the Hemoccult test. There was no gross blood on the test. [JS] 2327 Patient with persistent pain, Levsin ordered. [JS] ED Course User Index [JS] Lucius Morel PA-C Clinical Impressions as of 01/23/24 0031 Right lower quadrant abdominal pain Rectal bleeding Left against medical advice MDM / Disposition / Plan Differential diagnosis to include: 1. Bleeding hemorrhoids 2. Abdominal pain Less likely differential diagnosis to include: 1. Inflammatory bowel disease 2. Diverticular bleed I did review the patient's chart from 2 days ago. However she now has more abdominal pain. I have ordered a CT of the abdomen and pelvis. Patient does have soft blood pressures with systolics in the 90s and diastolics in the 50s. History and Record Review External re (more content not included)... [facility] ED Triage Noteon 01-22-2024 ED Triage Note HNO ID: [id number] Author: OLINDA MERCADO JR, MD Service: Emergency Medicine Author Type: Physician Type: ED Triage Notes Filed: 01/22/2024 18:35 Note Text: ED INTAKE NOTE Patient Name: Lm Monaco Service Date: 01/22/24 BRIEF HPI: This is a 48 year old female who presents to the ED with: Blood in stool for the past 2 days with nausea and abdominal pain. She was seen at [facility] and admission was recommended for colonoscopy but she was unable to. He states the nausea is getting worse. CT was done at [facility] on January 19 BRIEF EXAM: Unable to visualize due to ED iPad issues. INITIAL WORKUP AND DECISION MAKING: Orders Placed This Encounter No orders of the defined types were placed in this encounter. Labs Provider examination performed via virtual platform with assistance from bedside clinician. Further triage/room assignment per nursing Limited role in this case performing a screening of the patient in triage Further work up, treatment, follow up on testing ordered from triage, further testing, care, disposition, and final MDM per downstream emergency provider team Please see downstream ED providers's notation for full HnP and MDM SIGNATURE: Olinda Mercado MD [facility] Lipase SerPl-cCncon 01-22-20 24 Lipase [Catalytic activity/Vol] 61 U/L Normal [facility] Comment on above: Order Comment: Speci men Type: BLOOD SPECIMEN [facility] Address: [address] [place] [address] Performed By: #### 2 4323-8, 0-3, 25632-9 #### [facility] CLIA [id number] [address] [place], [place] [address] [place] Magnesium SerPl-mCncon 01-21 Magnesium [Mass/Vol] 2.2 mg/dL Normal 1.7-2.3 [facility] Comment on above: Order Comment: Speci men Type: BLOOD SPECIMEN [facility] Address: [address] [place] [address] Performed By: #### 2 4323-8, 0-3, #### [facility] CLIA [id number] [address] [place] [address] STATES [facility] Urinalysis complete panel (U )on 01-22-2024 Bilirubin Ql (U) Negative Normal Negative [facility] Comment on above: Order Comment: Speci men Type: URINE SPECIMEN [facility] Address: [address] [place] [address] Performed By: #### 2 4356-8 #### [facility] CLIA [id number] [address] [place] [address] [place] Clarity (Unsp spec) Clear Normal [facility] Comment on above: Order Comment: Speci men Type: URINE SPECIMEN [facility] Address: [address] [place] [address] Performed By: #### 2 4356-8 #### [facility] CLIA [id number] [address] [place] [address] [place] Color (U) Yellow Normal Yellow [facility] Comment on above: Order Comment: Speci men Type: URINE SPECIMEN [facility] Address: [address] [place] [address] Performed By: #### 2 4356-8 #### [facility] CLIA [id number] [address] [place] [address] [place] Glucose Test strip (U) [Mass/Vol] Negative Normal Negative [facility] Comment on above: Order Comment: Speci men Type: URINE SPECIMEN [facility] Address: [address] [place] [address] Performed By: #### 2 4356-8 #### [facility] CLIA [id number] [address] [place] [address] [place] Hemoglobin Ql (U) Negative Normal Negative [facility] Comment on above: Order Comment: Speci men Type: URINE SPECIMEN [facility] Address: [address] [place] [address] Performed By: #### 2 4356-8 #### [facility] CLIA [id number] [address] [place] [address] [place] Ketones Ql (U) Negative Normal Negative [facility] Comment on above: Order Comment: Speci men Type: URINE SPECIMEN [facility] Address: [address] [place] [address] Performed By: #### 2 4356-8 #### [facility] CLIA [id number] [address] [place] Leukocyte esterase Test strip Ql (U) Negative Normal Negative [facility] Comment on above: Order Comment: Speci men Type: URINE SPECIMEN [facility] Address: [address] [place] [address] Performed By: #### 2 4356-8 #### [facility] CLIA [id number] [address] [place] [address] [place] Nitrite Ql (U) Negative Normal Negative [facility] Comment on above: Order Comment: Speci men Type: URINE SPECIMEN [facility] Address: [address] [place] [address] Performed By: #### 2 4356-8 #### [facility] CLIA [id number] [address] [place] [address] [place] pH (U) 6.0 [pH] Normal 5.0-8.0 [facility] Comment on above: Order Comment: Speci men Type: URINE SPECIMEN [facility] Address: [address] [place] [address] Performed By: #### 2 4356-8 #### [facility] CLIA [id number] [address] [place] [address] [place] Protein (U) [Mass/Vol] Negative Normal Negative [facility] Comment on above: Order Comment: Speci men Type: URINE SPECIMEN [facility] Address: [address] [place] [address] Performed By: #### 2 4356-8 #### [facility] [place] [id number] [address] [place] [address] [place] RBC LM.HPF (Urine sed) [#/Area] 0-3 /HPF Normal 0-3 /HPF [facility] Comment on above: Order Comment: Speci men Type: URINE SPECIMEN [facility] Address: [address] [place] [address] Performed By: #### 2 4356-8 #### [facility] [place] [id number] [address] [place] [address] [place] Specific gravity (U) [Rel density] 1.025 Normal 1.005-1.030 [facility] Comment on above: Order Comment: Speci men Type: URINE SPECIMEN [facility] Address: [address] [place] [address] Performed By: #### 2 4356-8 #### [facility] CLIA [id number] [address] [place] [address] [place] Urobilinogen Ql (U) 0.2 EU/dL Normal 0.2-1.0 EU/dL [facility] Comment on above: Order Comment: Speci men Type: URINE SPECIMEN [facility] Address: [address] [place] [address] Performed By: #### 2 4356-8 #### [facility] CLIA [id number] [address] [place] [address] [place] WBC LM.HPF (Urine sed) [#/Area] 0-5 /HPF Normal 0-5 /HPF [facility] Comment on above: Order Comment: Speci men Type: URINE SPECIMEN [facility] Address: [address] [place] [address] Performed By: #### 2 4356-8 #### [facility] CLIA [id number] [address] [place] [address] [place] ALLIED HEALTHon 01-20-2024 ALLIED HEALTH HNO ID: [id number] Author: DRAKE WALDROP RT(R) Service: ? Author Type: Technologist Type: Allied Health Filed: 01/20/2024 15:08 Note Text: Radiology Service Progress Note PATIENT NAME: Lm Kam DATE OF SERVICE: January 20, 2024 TIME: 3:08 PM PATIENT IDENTITY VERIFICATION COMPLETED USING TWO (2) IDENTIFIERS: Name and Date of confirmed by patient verbally and Name and Date of confirmed by identification band. FALL SCREENING: Has the patient had 2 falls in the last year or 1 fall with injury or currently using an Ambulatory Assistive Device (Walker, Cane, Wheelchair, Crutches, etc.)? Emergency Room Patient: Screened in ED PATIENT GENDER DATA: Female. status: : No status: NO. PATIENT RELEVANT IMPLANT DATA REVIEWED: Yes PATIENT PRESENTS WITH AN IMPLANTABLE OR ATTACHED MITER GRINDER OPERATOR: No RADIOLOGY DEPARTMENT: CT; Exam(s) Completed: Abdomen/Pelvis PERIPHERAL IV DATA: Site assessment: Clean,Dry and Intact, Site disposition Left in for next appointment SIGNED BY: RT Anisa(R) January 20, 2024 3:08 PM Normal [facility] CBC W Auto Differential pane l (Bld)on 01-20-2024 Basophils (Bld) [#/Vol] 0.03 10*3/uL Normal <0.11 [facility] Comment on above: Order Comment: Speci men Type: BLOOD SPECIMEN [facility] Address: [address] [place] [address] Performed By: #### 5 7021-8 #### [facility] CLIA [id number] [address] [place] [address] [place] Basophils/100 WBC (Bld) 0.4 % Normal [facility] Comment on above: Order Comment: Speci men Type: BLOOD SPECIMEN [facility] Address: [address] [place] [address] Performed By: #### 5 7021-8 #### [facility] CLIA [id number] [place] [address] [place] Differential cell count method Nom (Bld) Auto Normal [facility] Comment on above: Order Comment: Speci men Type: BLOOD SPECIMEN [facility] Address: [address] [place] [address] Performed By: #### 5 7021-8 #### [facility] CLIA [id number] [place] [address] [place] Eosinophils (Bld) [#/Vol] 0.14 10*3/uL Normal <0.46 [facility] Comment on above: Order Comment: Speci men Type: BLOOD SPECIMEN [facility] Address: [address] [place] [address] Performed By: #### 5 7021-8 #### [facility] CLIA [id number] [place] [address] [place] Eosinophils/100 WBC (Bld) 1.8 % Normal [facility] Comment on above: Order Comment: Speci men Type: BLOOD SPECIMEN [facility] Address: [address] [place] [address] Performed By: #### 5 7021-8 #### [facility] CLIA [id number] [place] [address] [place] Erythrocyte distribution width (RBC) [Ratio] 13.6 % Normal 11.5-15.0 [facility] Comment on above: Order Comment: Speci men Type: BLOOD SPECIMEN [facility] Address: [address] [place] [address] Performed By: #### 5 7021-8 #### [facility] CLIA [id number] [place] [address] [place] Hematocrit (Bld) [Volume fraction] 42.4 % Normal 36.0-46.0 [facility] Comment on above: Order Comment: Speci men Type: BLOOD SPECIMEN [facility] Address: [address] [place] [address] Performed By: #### 5 7021-8 #### [facility] CLIA [id number] [place] [address] [place] Hemoglobin (Bld) [Mass/Vol] 14.7 g/dL Normal 11.5-15.5 [facility] Comment on above: Order Comment: Speci men Type: BLOOD SPECIMEN [facility] Address: [address] [place] [address] Performed By: #### 5 7021-8 #### [facility] CLIA [id number] [place] [address] [place] Immature granulocytes (Bld) [#/Vol] 10*3/uL Normal <0.10 [facility] Comment on above: Order Comment: Speci men Type: BLOOD SPECIMEN [facility] Address: [address] [place] [address] Performed By: #### 5 7021-8 #### [facility] CLIA [id number] [place] [address] [place] Immature granulocytes/100 WBC (Bld) 0.3 % Normal [facility] Comment on above: Order Comment: Speci men Type: BLOOD SPECIMEN [facility] Address: [address] [place] [address] Performed By: #### 5 7021-8 #### [facility] CLIA [id number] [place] [address] [place] Lymphocytes (Bld) [#/Vol] 2.61 10*3/uL Normal 1.00-4.00 [facility] Comment on above: Order Comment: Speci men Type: BLOOD SPECIMEN [facility] Address: [address] [place] [address] Performed By: #### 5 7021-8 #### [facility] CLIA [id number] [place] [address] [place] Lymphocytes/100 WBC (Bld) 33.8 % Normal [facility] Comment on above: Order Comment: Speci men Type: BLOOD SPECIMEN [facility] Address: [address] [place] [address] Performed By: #### 5 7021-8 #### [facility] CLIA [id number] [place] [address] [place] MCH (RBC) [Entitic mass] 32.2 pg Normal 26.0-34.0 [facility] Comment on above: Order Comment: Speci men Type: BLOOD SPECIMEN [facility] Address: [address] [place] [address] Performed By: #### 5 7021-8 #### [facility] CLIA [id number] [place] [address] [place] MCHC (RBC) [Mass/Vol] 34.7 g/dL Normal 30.5-36.0 [facility] Comment on above: Order Comment: Speci men Type: BLOOD SPECIMEN [facility] Address: [address] [place] [address] Performed By: #### 5 7021-8 #### [facility] CLIA [id number] [place] [address] [place] MCV (RBC) [Entitic vol] 92.8 fL Normal 80.0-100.0 [facility] Comment on above: Order Comment: Speci men Type: BLOOD SPECIMEN [facility] Address: [address] [place] [address] Performed By: #### 5 7021-8 #### [facility] CLIA [id number] [place] [address] [place] Monocytes (Bld) [#/Vol] 0.63 10*3/uL Normal <0.87 [facility] Comment on above: Order Comment: Speci men Type: BLOOD SPECIMEN [facility] Address: [address] [place] [address] Performed By: #### 5 7021-8 #### [facility] CLIA [id number] [place] [id number] [place] Monocytes/100 WBC (Bld) 8.2 % Normal [facility] Comment on above: Order Comment: Speci men Type: BLOOD SPECIMEN [facility] Address: [address] [place] [address] Performed By: #### 5 7021-8 #### [facility] CLIA [id number] [place] [address] [place] Neutrophils (Bld) [#/Vol] 4.30 10*3/uL Normal 1.45-7.50 [facility] Comment on above: Order Comment: Speci men Type: BLOOD SPECIMEN [facility] Address: [address] [place] [address] Performed By: #### 5 7021-8 #### [facility] CLIA [id number] [place] [address] [place] Neutrophils/100 WBC (Bld) 55.5 % Normal [facility] Comment on above: Order Comment: Speci men Type: BLOOD SPECIMEN [facility] Address: [address] [place] [address] Performed By: #### 5 7021-8 #### [facility] CLIA [id number] [place] [address] [place] Nucleated RBC (Bld) [#/Vol] 10*3/uL Normal <0.01 [facility] Comment on above: Order Comment: Speci men Type: BLOOD SPECIMEN [facility] Address: [address] [place] [address] Performed By: #### 5 7021-8 #### [facility] CLIA [id number] [place] [address] [place] Nucleated RBC/100 WBC (Bld) [Ratio] 0.0 /100 WBC Normal [facility] Comment on above: Order Comment: Speci men Type: BLOOD SPECIMEN [facility] Address: [address] [place] [address] Performed By: #### 5 7021-8 #### [facility] CLIA [id number] [place] [id number] [place] Platelet mean volume (Bld) [Entitic vol] 9.4 fL Normal 9.0-12.7 [facility] Comment on above: Order Comment: Speci men Type: BLOOD SPECIMEN [facility] Address: [address] [place] [address] Performed By: #### 5 7021-8 #### [facility] CLIA [id number] [place] [address] [place] Platelets (Bld) [#/Vol] 305 10*3/uL Normal 150-400 [facility] Comment on above: Order Comment: Speci men Type: BLOOD SPECIMEN [facility] Address: [address] [place] [address] Performed By: #### 5 7021-8 #### [facility] CLIA [id number] [place] [address] [place] RBC (Bld) [#/Vol] 4.57 10*6/uL Normal 3.90-5.20 [facility] Comment on above: Order Comment: Speci men Type: BLOOD SPECIMEN [facility] Address: [address] [place] [address] Performed By: #### 5 7021-8 #### [facility] CLIA [id number] [place] [address] [place] WBC (Bld) [#/Vol] 7.73 10*3/uL Normal 3.70-11.00 [facility] Comment on above: Order Comment: Speci men Type: BLOOD SPECIMEN [facility] Address: [address] [place] [address] Performed By: #### 5 7021-8 #### [facility] CLIA [id number] [address] [place] [address] [place] CT ABD/PEL W IVCONon 10-14-[address] ABD/PEL W IVCON * * *Final Report* * * DATE OF EXAM: Jan 20 2024 3:10PM [facility] [place] ABD/PEL W IVCON / PROCEDURE REASON: Abdominal abscess/infection suspected * * * * Physician Interpretation * * * * RESULT: EXAMINATION: CT ABDOMEN AND PELVIS WITH IV CONTRAST CLINICAL HISTORY: Lower abdominal pain, worse in RLQ. Bright red blood Bms. Please eval for acute diverticulitis, acute appendicitis, or other acute visceral pathology. TECHNIQUE: CT of the abdomen and pelvis was performed using standard technique, scanning from just above the dome of the diaphragm to the symphysis pubis. MQ: CTAP_3 Contrast: IV: 100 ml of Omnipaque 300 CT Radiation dose: Integrated Dose-length product (DLP) for this visit = 198 mGy*cm. CT Dose Reduction Employed: Automated exposure control (AEC) COMPARISON: CTA abdomen and pelvis 04/11/2006 RESULT: Liver: No mass. Biliary: No bile duct dilation. Gallbladder is unremarkable. Spleen: No mass. No splenomegaly. Pancreas: No mass or duct dilation. Adrenals: No mass. Kidneys: 2.4 cm right interpolar parapelvic renal cyst (201:58). Few subcentimeter low attenuating cortical renal lesions, too small to characterize but likely benign. No calculus or hydronephrosis. GI tract: No dilation or wall thickening. Normal appendix. Lymph nodes: No abdominal or pelvic lymphadenopathy. Mesentery/Peritoneum: No ascites or mass. Retroperitoneum: No mass. Vasculature: - Abdominal aorta and iliac arteries: No aneurysm. - Celiac and SMA: Separate splenic artery and ASHLEY origins, a normal variant. Both these vessels and the SMA are patent. - Portal venous system (SMV, splenic vein, portal vein and branches): Patent. - Hepatic veins: Incompletely opacified, likely due to early phase of enhancement. Pelvis: No mass, ascites or fluid collection. Bones/Soft Tissues: Degenerative changes. Lower thorax: 1.7 x 0.9 cm subpleural nodular opacity in the posterior right lower lobe (202:94), stable since CT dated 04/11/2006 and likely benign. Mild bibasilar atelectases. Localizer images: No additional findings. IMPRESSION: No acute process in the abdomen or pelvis. Transcribed Using Voice Recognition Transcribe Date/Time: Jan 20 2024 3:18P Dictated by: MARITZA REECE MD This examination was interpreted and the report reviewed and electronically signed by: MARITZA REECE MD on Jan 20 2024 3:25PM EST [id number] Normal [facility] Comprehensive metabolic 2000 panelon 01-20-2024 Albumin [Mass/Vol] 4.4 g/dL Normal 3.9-4.9 [facility] Comment on above: Order Comment: Speci men Type: BLOOD SPECIMEN [facility] Address: [address] [place] [address] Performed By: #### 2 4323-8, , 0-3 #### [facility] CLIA [id number] [place] [address] [place] ALP [Catalytic activity/Vol] 57 U/L Normal 34-123 [facility] Comment on above: Order Comment: Speci men Type: BLOOD SPECIMEN [facility] Address: [address] [place] [address] Performed By: #### 2 4323-8, , 0-3 #### [facility] CLIA [id number] [place] [address] [place] ALT [Catalytic activity/Vol] 11 U/L Normal 7-38 [facility] Comment on above: Order Comment: Speci men Type: BLOOD SPECIMEN [facility] Address: [address] [place] [address] Performed By: #### 2 4323-8, 69311-8, 0-3 #### [facility] CLIA [id number] [place] [address] [place] Anion gap [Moles/Vol] 12 mmol/L Normal 8-15 [facility] Comment on above: Order Comment: Speci men Type: BLOOD SPECIMEN [facility] Address: [address] [place] [address] Performed By: #### 2 4323-8, 29221-1, 0-3 #### [facility] CLIA [id number] [place] [id number] [place] AST [Catalytic activity/Vol] 13 U/L Normal 13-35 [facility] Comment on above: Order Comment: Speci men Type: BLOOD SPECIMEN [facility] Address: [address] [place] [address] Performed By: #### 2 4323-8, , 0-3 #### [facility] CLIA [id number] [place] [id number] [place] Bilirubin [Mass/Vol] 0.4 mg/dL Normal 0.2-1.3 [facility] Comment on above: Order Comment: Speci men Type: BLOOD SPECIMEN [facility] Address: [address] [place] [address] Performed By: #### 2 4323-8, , 3039-3 #### [facility] CLIA [id number] [place] [id number] [place] Calcium [Mass/Vol] 9.1 mg/dL Normal 8.5-10.2 [facility] Comment on above: Order Comment: Speci men Type: BLOOD SPECIMEN [facility] Address: [address] [place] [address] Performed By: #### 2 4323-8, , 3039-3 #### [facility] CLIA [id number] [place] [id number] [place] Chloride [Moles/Vol] 102 mmol/L Normal 98-107 [facility] Comment on above: Order Comment: Speci men Type: BLOOD SPECIMEN [facility] Address: [address] [place] [address] Performed By: #### 2 4323-8, 99105-9, 0-3 #### [facility] CLIA [id number] [place] [address] [place] CO2 [Moles/Vol] 24 mmol/L Normal 22-30 [facility] Comment on above: Order Comment: Roberto mcpherson Type: BLOOD SPECIMEN [facility] Address: [address] [place] [address] Performed By: #### 2 4323-8, 91574-6, 0-3 #### [facility] CLIA [id number] [place] [id number] [place] Creatinine [Mass/Vol] 0.75 mg/dL Normal 0.58-0.96 [facility] Comment on above: Order Comment: Roberto mcpherson Type: BLOOD SPECIMEN [facility] Address: [address] [place] [address] Performed By: #### 2 4323-8, 80384-5, 3039-3 #### [facility] CLIA [id number] [address] [place] [address] [place] Creatinine and Glomerular filtration rate.predicted panel (S/P/Bld) 98 mL/min/1.73m??? Normal >=60 [facility] Comment on above: Order Comment: Roberto mcpherson Type: BLOOD SPECIMEN [facility] Address: [address] [place] [address] Result Comment: Ludy mated Glomerular Filtration Rate (eGFR) is calculated using the 2020 CKD-EPI creatinine equation. This equation utilizes serum creatinine, sex, and age as parameters. The creatinine assay has traceable calibration to isotope dilution-mass spectrometry. Refer to KDIGO guidelines for clinical interpretation. In patients with unstable renal function, e.g. those with acute kidney injury, the eGFR may not accurately reflect actual GFR. Performed By: #### 2 4323-8, 08565-7, 0-3 #### [facility] [facility] CLIA [id number] [address] [place], [place] [id number] [place] Glucose [Mass/Vol] 100 mg/dL High 74-99 [facility] Comment on above: Order Comment: Roberto mcpherson Type: BLOOD SPECIMEN [facility] Address: [address] [place] [address] Result Comment: The [place] Diabetes Association (ADA) provides guidance for cutoff values for fasting glucose and random glucose. The ADA defines fasting as no caloric intake for at least 8 hours. Fasting plasma glucose results between 100 to 125 mg/dL indicate increased risk for diabetes (prediabetes). Fasting plasma glucose results greater than or equal to 126 mg/dL meet the criteria for diagnosis of diabetes. In the absence of unequivocal hyperglycemia, results should be confirmed by repeat testing. In a patient with classic symptoms of hyperglycemia or hyperglycemic crisis, random plasma glucose results greater than or equal to 200 mg/dL meet the criteria for diagnosis of diabetes. Reference: Standards of Medical Care in Diabetes 2016, [place] Diabetes Association. Diabetes Care. 2016.39(Suppl 1). Performed By: #### 2 4323-8, , 3039-3 #### [facility] CLIA [id number] [place] [address] [place] Potassium [Moles/Vol] 4.0 mmol/L Normal 3.7-5.1 [facility] Comment on above: Order Comment: Roberto mcpherson Type: BLOOD SPECIMEN [facility] Address: [address] [place] [address] Performed By: #### 2 4323-8, , 3 #### [facility] CLIA [id number] [place] [address] [place] Protein [Mass/Vol] 7.1 g/dL Normal 6.3-8.0 [facility] Comment on above: Order Comment: Speci men Type: BLOOD SPECIMEN [facility] Address: [address] [place] [address] Performed By: #### 2 4323-8, , 3 #### [facility] CLIA [id number] [place] [address] [place] Sodium [Moles/Vol] 138 mmol/L Normal 136-144 [facility] Comment on above: Order Comment: Speci men Type: BLOOD SPECIMEN [facility] Address: [address] [place] [id number] Performed By: #### 2 4323-8, 79555-1, 0-3 #### [facility] CLIA [id number] [place] [id number] [facility] Urea nitrogen [Mass/Vol] 10 mg/dL Normal 7-21 [facility] Comment on above: Order Comment: Speci men Type: BLOOD SPECIMEN [facility] Address: [address] [place], [place] [address] Performed By: #### 2 4323-8, 85716-1, 0-3 #### [facility] CLIA [id number] [place] [id number] [facility] ED NOTEon 01-20-2024 ED NOTE HNO ID: [id number] Author: MAN GALVEZ RN Service: Emergency Medicine Author Type: Registered Nurse Type: ED Notes Filed: 01/20/2024 15:46 Note Text: IV removed, pt paperwork provided. Pt is ambulatory and not in distress at time of d/c [facility] ED NOTE HNO ID: [id number] Author: MAN GALVEZ RN Service: Emergency Medicine Author Type: Registered Nurse Type: ED Notes Filed: 01/20/2024 15:46 Note Text: Schedulers not available, pt instructed to call f/u for apt with gastro. [facility] ED NOTE HNO ID: [id number] Author: DANYELL CHRISTIE RN Service: ? Author Type: Registered Nurse Type: ED Notes Filed: 01/20/2024 14:14 Note Text: Pt sts she awoke from a nap about 1300 today, used the bathroom to move her bowels and noted toilet bowl was full of mix of stool and dark/bright red blood. Pt denies rectal pain and hemorrhoids, sts she was on coumadin in 2005 for prev blood clot, but was taken off after 6 mos. Pt sts blood clot r/t back surgery. 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 Pt sts she awoke from a nap about 1300 today, used the bathroom noted toilet bowl was full of mix of stool and bright red blood. She is also endorsing diffuse lower abdominal pain. Denies any history of diverticulitis, colitis, IBD, or other GI conditions. She does report grandfather history of colon cancer but no other immediate family members. She denies any previous abdominal surgical history. History provided by: Patient news commentator used: No No past medical history on file. No past surgical history on file. No family history on file. Social History Tobacco Use Smoking status: Not on file Smokeless tobacco: Not on file Substance and Sexual Activity Alcohol use: Not on file Drug use: Not on file Sexual activity: Not on file ALLERGIES Allergen Reactions Flagyl [Metronidazo* Anaphylaxis Review of Systems Constitutional: Negative for chills, fatigue and fever. HENT: Negative for nosebleeds, rhinorrhea and sore throat. Respiratory: Negative for cough, chest tightness and shortness of breath. Cardiovascular: Negative for chest pain, palpitations and leg swelling. Gastrointestinal: Positive for abdominal pain and blood in stool. Negative for abdominal distention, diarrhea, nausea and vomiting. Genitourinary: Negative for dysuria, flank pain, pelvic pain, vaginal bleeding and vaginal discharge. Musculoskeletal: Negative for back pain and myalgias. Skin: Negative for rash. Allergic/Immunologic: Negative for immunocompromised state. Neurological: Negative for syncope, light-headedness and headaches. Hematological: Does not bruise/bleed easily. Physical Exam Vitals [01/20/24 1411] BP Pulse Temp Temp src Resp SpO2 Weight Height 102/52 66 36.8 ?C (98.2 ?F) Temporal 16 100 % 46.7 kg (103 lb) 1.626 m (5' 4) Physical Exam Vitals and nursing note reviewed. Exam conducted with a independent sales representative present (DEBRA Galvez present). Constitutional: General: She is not in acute distress. Appearance: Normal appearance. She is normal weight. She is not ill-appearing, toxic-appearing or diaphoretic. HENT: Head: Normocephalic and atraumatic. Nose: Nose normal. Mouth/Throat: Mouth: Mucous membranes are moist. Pharynx: Oropharynx is clear. Eyes: General: No scleral icterus. Extraocular Movements: Extraocular movements intact. Conjunctiva/sclera: Conjunctivae normal. Pupils: Pupils are equal, round, and reactive to light. Cardiovascular: Rate and Rhythm: Normal rate and regular rhythm. Pulses: Normal pulses. Radial pulses are 2+ on the right side and 2+ on the left side. Dorsalis pedis pulses are 2+ on the right side and 2+ on the left side. Posterior tibial pulses are 2+ on the right side and 2+ on the left side. Heart sounds: Normal heart sounds. No murmur heard. No friction rub. No gallop. Pulmonary: Effort: Pulmonary effort is normal. Breath sounds: Normal breath sounds. No decreased breath sounds, wheezing, rhonchi or rales. Abdominal: General: Bowel sounds are normal. There is no distension. Tenderness: There is abdominal tenderness in the right lower quadrant. There is guarding (mild voluntary guarding). There is no rebound. Hernia: No hernia is present. Genitourinary: Rectum: Normal. No tenderness, anal fissure, external hemorrhoid or internal hemorrhoid. Musculoskeletal: General: No swelling. Cervical back: Normal range of motion and neck supple. Right lower leg: No edema. Left lower leg: No edema. Skin: General: Skin is warm. Capillary Refill: Capillary refill takes less than 2 seconds. Coloration: Skin is not jaundiced. Findings: No bruising or rash. Neurological: General: No focal deficit present. Mental Status: She is alert. Mental status is at baseline. Psychiatric: Mood and Affect: Mood is anxious. Behavior: Behavior is cooperative. Thought Content: Thought content normal. Judgment: Judgment normal. Diagnostic Testing ED Labs Ordered and Reviewed COMPREHENSIVE METABOLIC PANEL - Abnormal; Notable for the following components: Result Value Ref Range Glucose 100 (*) 74 - 99 mg/dL All other components within normal limits LIPASE - Abnormal; Notable for the following components: Lipase 83 (*) 16 - 61 U/L All other components within normal limits MAGNESIUM - Normal PROTHROMBIN TIME - Normal URINALYSIS WITH MICROSCOPIC, REFLEX CULTURE - Normal COMPLETE BLOOD COUNT AND DIFFERENTIAL CT ABD/PEL W IVCON Final Result IMPRESSION: No a (more content not included)... Normal [facility] Lipase SerPl-cCncon 01-20-20 24 Lipase [Catalytic activity/Vol] 83 U/L High 16-61 [facility] Comment on above: Order Comment: Roberto mcpherson Type: BLOOD SPECIMEN [facility] Address: [address] [place] [address] Performed By: #### 2 4323-8, 20205-0, 3040-3 #### [facility] CLIA [id number] [place], [place] [address] [place] Magn[facility] 01-19 Magnesium [Mass/Vol] 2.3 mg/dL Normal 1.7-2.3 [facility] Comment on above: Order Comment: Roberto mcpherson Type: BLOOD SPECIMEN [facility] Address: [address] [place] [address] Performed By: #### 2 4323-8, 18569-6, 3040-3 #### [facility] CLIA [id number] [address] [place] [address] [place] PT panel Coag (PPP)on 2023 INR Coag (PPP) [Relative time] 0.9 {INR} Normal 0.9-1.3 [facility] Comment on above: Order Comment: Roberto mcpherson Type: BLOOD SPECIMEN [facility] Address: [address] [place] [address] Result Comment: Promise min K Antagonist (VKA) Therapeutic Range: INR 2 to 3 (Target INR of 2.5) Note: For patients treated with VKA drugs, such as warfarin, the [place] College [employer] Chest [employer]icians 2012 Guideline recommends a therapeutic INR range of 2 to 3 (target INR of 2.5). This recommendation includes high-risk patients with antiphospholipid syndrome with previous arterial or venous thromboembolism, current-generation mechanical or bioprosthetic aortic heart valve replacement. Note: Patients with mechanical aortic valve replacement and additional risk factors for thromboembolic events (atrial fibrillation, previous thromboembolism, LV dysfunction, hypercoagulable conditions) or an older generation mechanical AVR (i.e., ball in-Cage) or any mechanical MVR should have a INR therapeutic range of 2.5 to 3.5 (target INR of 3). Pedro Pablo ALBRECHT, et al. Chest 2012, 141:7S-47S Vikki LITTLE et al. [facility] 2017, 70: 252-289 Performed By: #### 3 4528-0 #### [facility] CLIA [id number] [place] [address] [place] PT Coag (PPP) [Time] 10.9 s Normal 9.7-13.0 [facility] Comment on above: Order Comment: Speci men Type: BLOOD SPECIMEN [facility] Address: [address] [place] [address] Performed By: #### 3 4528-0 #### [facility] CLIA [id number] [address] [place] [address] [place] Urinalysis complete panel (U )on 01-20-2024 Bilirubin Ql (U) Negative Normal Negative [facility] Comment on above: Order Comment: Speci men Type: URINE SPECIMEN [facility] Address: [address] [place] [address] Performed By: #### 2 4356-8 #### [facility] CLIA [id number] [address] [place] [address] [place] Clarity (Unsp spec) Clear Normal Clear [facility] Comment on above: Order Comment: Speci men Type: URINE SPECIMEN [facility] Address: [address] [place] [address] Performed By: #### 2 4356-8 #### [facility] CLIA [id number] [address] [place] [address] [place] Color (U) Yellow Normal Yellow [facility] Comment on above: Order Comment: Speci men Type: URINE SPECIMEN [facility] Address: [address] [place] [address] Performed By: #### 2 4356-8 #### [facility] CLIA [id number] [address] [place] Glucose Test strip (U) [Mass/Vol] Negative Normal Negative [facility] Comment on above: Order Comment: Speci men Type: URINE SPECIMEN [facility] Address: [address] [place] [address] Performed By: #### 2 4356-8 #### [facility] CLIA [id number] [place] [address] [place] Hemoglobin Ql (U) Negative Normal Negative [facility] Comment on above: Order Comment: Speci men Type: URINE SPECIMEN [facility] Address: [address] [place] [address] Performed By: #### 2 4356-8 #### [facility] CLIA [id number] [address] [place] Ketones Ql (U) Negative Normal Negative [facility] Comment on above: Order Comment: Speci men Type: URINE SPECIMEN [facility] Address: [address] [place] [address] Performed By: #### 2 4356-8 #### [facility] CLIA [id number] [address] Leukocyte esterase Test strip Ql (U) Negative Normal Negative [facility] Comment on above: Order Comment: Speci men Type: URINE SPECIMEN [facility] Address: [address] [place] [address] Performed By: #### 2 4356-8 #### [facility] CLIA [id number] [address] [place] Nitrite Ql (U) Negative Normal Negative [facility] Comment on above: Order Comment: Speci men Type: URINE SPECIMEN [facility] Address: [address] [place] [address] Performed By: #### 2 4356-8 #### [facility] CLIA [id number] [place] [address] [place] pH (U) 8.0 [pH] Normal 5.0-8.0 [facility] Comment on above: Order Comment: Speci men Type: URINE SPECIMEN [facility] Address: [address] [place] [address] Performed By: #### 2 4356-8 #### [facility] CLIA [id number] [place] [address] [place] Protein (U) [Mass/Vol] Negative Normal Negative [facility] Comment on above: Order Comment: Speci men Type: URINE SPECIMEN [facility] Address: [address] [place] [address] Performed By: #### 2 4356-8 #### [id number] [place] [address] [place] RBC LM.HPF (Urine sed) [#/Area] 0-3 /HPF Normal 0-3 /HPF [facility] Comment on above: Order Comment: Speci men Type: URINE SPECIMEN [facility] Address: [address] [place] [address] Performed By: #### 2 4356-8 #### [facility] [id number] [place] [address] [place] Specific gravity (U) [Rel density] 1.010 Normal 1.005-1.030 [facility] Comment on above: Order Comment: Speci men Type: URINE SPECIMEN [facility] Address: [address] [place] [address] Performed By: #### 2 4356-8 #### [facility] CLIA [id number] [place] [address] [place] Urobilinogen Ql (U) 0.2 EU/dL Normal 0.2-1.0 EU/dL [facility] Comment on above: Order Comment: Speci men Type: URINE SPECIMEN [facility] Address: [address] [place] [address] Performed By: #### 2 4356-8 #### [facility] CLIA [id number] [place] [address] [place] WBC LM.HPF (Urine sed) [#/Area] 0-5 /HPF Normal 0-5 /HPF [facility] Comment on above: Order Comment: Speci men Type: URINE SPECIMEN [facility] Address: [facility] [place] [address] Performed By: #### 2 4356-8 #### [facility] CLIA [id number] [place] [id number] [place] BASIC METABOLIC PANELon 12-07 Anion gap [Moles/Vol] 12 mmol/L Normal 10-20 [facility] Comment on above: Performed By: #### C H8 ####S PATHOLOGY [id number] [place], [place], Calcium [Mass/Vol] 8.5 mg/dL Low 8.6-10.3 [facility] Comment on above: Performed By: #### C H8 ####S PATHOLOGY [id number] [place], [place], Chloride [Moles/Vol] 104 mmol/L Normal 98-107 [facility] Comment on above: Performed By: #### C H8 ####S PATHOLOGY [id number] [place], CO2 [Moles/Vol] 25 mmol/L Normal 21-31 [facility] Comment on above: Performed By: #### C H8 ####[facility] [id number] [place], [place], Creatinine [Mass/Vol] 0.72 mg/dL Normal 0.60-1.20 [facility] Comment on above: Performed By: #### C H8 ####S PATHOLOGY [id number] [place], ESTIMATED GFR (CKD-EPI) 103 mL/min/1.73sqm Normal >=60 [facility] Comment on above: Result Comment: 2020 CKD EPI Equation using Creatinine without Race Comment: Estimated glomerular filtration rate (eGFR) is calculated without a race coefficient. Values should be interpreted in the context of the patient's full clinical presentation. Reference: 1. Santos Feliz, Kitty M, Oneil MONGE, et al.. A Unifying Approach for GFR Estimation: Recommendations of the NKF-ASN Task Force on Reassessing the Inclusion of Race in Diagnosing Kidney Disease. [place] Journal of Kidney Diseases 2021;79(2):268-88.e1. 2. N Engl J Med 2020 Vol. 385 Issue 19 Pages 1401-9855 Performed By: #### C H8 ####S PATHOLOGY [id number] [place], Glucose [Mass/Vol] 101 mg/dL Normal 74-109 [facility] Comment on above: Performed By: #### C H8 ####S PATHOLOGY [id number] [place], Potassium [Moles/Vol] 4.0 mmol/L Normal 3.5-5.0 [facility] Comment on above: Performed By: #### C H8 ####S PATHOLOGY [id number] [place], Sodium [Moles/Vol] 137 mmol/L Normal 136-145 [facility] Comment on above: Performed By: #### C H8 ####[facility] [id number] [place], Urea nitrogen [Mass/Vol] 8 mg/dL Normal 7-25 [facility] Comment on above: Performed By: #### C H8 ####[facility] [id number] [place], Anion gap [Moles/Vol] 8 mmol/L Low 10-20 [facility] Comment on above: Performed By: #### C R ICA #### [facility] [address] [place] [address], Calcium [Mass/Vol] 8.0 mg/dL Low 8.6-10.3 [facility] Comment on above: Performed By: #### C R ICA #### [facility] [address] [place], [place], Chloride [Moles/Vol] 97 mmol/L Low 98-107 [facility] Comment on above: Performed By: #### C R ICA #### S [facility] LABORATORY [address] [place], [place], CO2 [Moles/Vol] 27 mmol/L Normal 21-31 [facility] Comment on above: Performed By: #### C R ICA #### [email or web address] [address] [place], [place], Creatinine [Mass/Vol] 0.70 mg/dL Normal 0.60-1.20 [facility] Comment on above: Performed By: #### C R ICA #### [email or web address] [address] [place], [place], ESTIMATED GFR (CKD-EPI) 107 mL/min/1.73sqm Normal >=60 [facility] Comment on above: Result Comment: 2020 CKD EPI Equation using Creatinine without Race Comment: Estimated glomerular filtration rate (eGFR) is calculated without a race coefficient. Values should be interpreted in the context of the patient's full clinical presentation. Reference: 1. Santos C, Bamatt M, Oneil DC, et al.. A Unifying Approach for GFR Estimation: Recommendations of the NKF-ASN Task Force on Reassessing the Inclusion of Race in Diagnosing Kidney Disease. [place] Journal of Kidney Diseases 2021;79(2):268-88.e1. 2. N Engl J Med 1 Vol. 385 Issue 19 Pages 9653-2093 Performed By: #### C R ICA #### [facility]OR[facility] [address] [place], [place], Glucose [Mass/Vol] 85 mg/dL Normal 74-109 [facility] Comment on above: Performed By: #### C R ICA #### S [facility] LABORATORY [address] [place], [place], Potassium [Moles/Vol] 3.9 mmol/L Normal 3.5-5.0 [facility] Comment on above: Performed By: #### C R ICA #### S [facility] LABORATORY [address] [place], [place], Sodium [Moles/Vol] 128 mmol/L Low 136-145 [facility] Comment on above: Performed By: #### C R ICA #### [facility] [address] [place] [address], Urea nitrogen [Mass/Vol] 8 mg/dL Normal 7-25 [facility] Comment on above: Performed By: #### C R ICA #### [facility] [address] [place] [address], Anion gap [Moles/Vol] 9 mmol/L Low 10-20 [facility] Comment on above: Performed By: #### L IP, HEPATIC, CH8, HCG #### [facility] [address] [place] [address], Calcium [Mass/Vol] 5.7 mg/dL Critically low 8.6-10.3 [facility] Comment on above: Performed By: #### L IP, HEPATIC, CH8, HCG #### [facility] [address] [place] [address], Chloride [Moles/Vol] 118 mmol/L High 98-107 [facility] Comment on above: Performed By: #### L IP, HEPATIC, CH8, HCG #### [facility] [address] [place] [address], CO2 [Moles/Vol] 20 mmol/L Low 21-31 [facility] Comment on above: Performed By: #### L IP, HEPATIC, CH8, HCG #### [facility] [address] [place] [address], Creatinine [Mass/Vol] 0.41 mg/dL Low 0.60-1.20 [facility] Comment on above: Performed By: #### L IP, HEPATIC, CH8, HCG #### [facility] [address] [place] [address], ESTIMATED GFR (CKD-EPI) 121 mL/min/1.73sqm Normal >=60 [facility] Comment on above: Result Comment: 2020 CKD EPI Equation using Creatinine without Race Comment: Estimated glomerular filtration rate (eGFR) is calculated without a race coefficient. Values should be interpreted in the context of the patient's full clinical presentation. Reference: 1. Santos C, Kitty M, Oneil DC, et al.. A Unifying Approach for GFR Estimation: Recommendations of the NKF-ASN Task Force on Reassessing the Inclusion of Race in Diagnosing Kidney Disease. [place] Journal of Kidney Diseases 202;79(2):268-88.e1. 2. N Engl J Med 1 Vol. 385 Issue 19 Pages 3181-1320 Performed By: #### L IP, HEPATIC, CH8, HCG #### [facility] [address] [place] [address], Glucose [Mass/Vol] 68 mg/dL Low 74-109 [facility] Comment on above: Performed By: #### L IP, HEPATIC, CH8, HCG #### [facility] [address] [place] [address], Potassium [Moles/Vol] 3.1 mmol/L Low 3.5-5.0 [facility] Comment on above: Result Comment: Hemo lysis present Performed By: #### L IP, HEPATIC, CH8, HCG #### [facility] [address] [place] [address], Sodium [Moles/Vol] 144 mmol/L Normal 136-145 [facility] Comment on above: Performed By: #### L IP, HEPATIC, CH8, HCG #### [facility] [address] [place] [address], Urea nitrogen [Mass/Vol] 7 mg/dL Normal 7-25 [facility] Comment on above: Performed By: #### L IP, HEPATIC, CH8, HCG #### [facility] PATHOLOGY LABORATORY [address] [place], [place], Basic metabolic 2000 panelOr dered By: Yohannes Dillon on 12-20-2023 Anion gap [Moles/Vol] 12 mmol/L 10 - 20 [facility] Calcium [Mass/Vol] 8.5 mg/dL Low 8.6 - 10. 3 mg/dL [facility] Chloride [Moles/Vol] 104 mmol/L 98 - 10 7 mmol/L [facility] CO2 [Moles/Vol] 25 mmol/L 21 - 31 mmol/L [facility] Creatinine [Mass/Vol] 0.72 mg/dL 0.60 - 1.20 mg/dL [facility] GFR/1.73 sq M.predicted CKD-EPI (S/P/Bld) [Vol rate/Area] 103 - PINF [facility] Comment on above: 2020 CKD EPI Equatio n using Creatinine without Race Comment: Estimated glomerular filtration rate (eGFR) is calculated without a race coefficient. Values should be interpreted in the context of the patient's full clinical presentation. Reference: 1. Santos C, Kitty M, Oneil MONGE, et al.. A Unifying Approach for GFR Estimation: Recommendations of the NKF-ASN Task Force on Reassessing the Inclusion of Race in Diagnosing Kidney Disease. [place] Journal of Kidney Diseases 202;79(2):268-88.e1. 2. N Engl J Med 2020 Vol. 385 Issue 19 Pages 1482-4772 Glucose [Mass/Vol] 101 mg/dL 74 - 109 mg/dL [facility] Interpretation and review of laboratory results Abnormal [facility] Potassium [Moles/Vol] 4.0 mmol/L 3.5 - 5.0 mmol/L [facility] Sodium [Moles/Vol] 137 mmol/L 136 - 145 mmol/L [facility] Urea nitrogen [Mass/Vol] 8 mg/dL 7 - 25 mg/dL [facility] Basic metabolic 2000 panelon 12-20-2023 Anion gap [Moles/Vol] 8 mmol/L Low 10 - 20 [facility] Calcium [Mass/Vol] 8.0 mg/dL Low 8.6 - 10. 3 mg/dL [facility] Chloride [Moles/Vol] 97 mmol/L Low 98 - 10 7 mmol/L [facility] CO2 [Moles/Vol] 27 mmol/L 21 - 31 mmol/L [facility] Creatinine [Mass/Vol] 0.70 mg/dL 0.60 - 1.20 mg/dL [facility] GFR/1.73 sq M.predicted CKD-EPI (S/P/Bld) [Vol rate/Area] 107 - PINF [facility] Comment on above: 2020 CKD EPI Equatio n using Creatinine without Race Comment: Estimated glomerular filtration rate (eGFR) is calculated without a race coefficient. Values should be interpreted in the context of the patient's full clinical presentation. Reference: 1. Kitty Mittal Crews [place], et al.. A Unifying Approach for GFR Estimation: Recommendations of the NKF-ASN Task Force on Reassessing the Inclusion of Race in Diagnosing Kidney Disease. [place] Journal of Kidney Diseases 202;79(2):268-88.e1. 2. N Engl J Med 2020 Vol. 385 Issue 19 Pages 3674-7073 Glucose [Mass/Vol] 85 mg/dL 74 - 109 mg/dL [facility] Interpretation and review of laboratory results Abnormal [facility] Potassium [Moles/Vol] 3.9 mmol/L 3.5 - 5.0 mmol/L [facility] Sodium [Moles/Vol] 128 mmol/L Low 136 - 145 mmol/L [facility] Urea nitrogen [Mass/Vol] 8 mg/dL 7 - 25 mg/dL [facility] Basic metabolic 2000 panelOr dered By: Nereyda Soto on 12-20-2023 Anion gap [Moles/Vol] 9 mmol/L Low 10 - 20 [facility] Calcium [Mass/Vol] 5.7 mg/dL Critically low 8.6 - 1 0.3 mg/dL [facility] Chloride [Moles/Vol] 118 mmol/L High 98 - 10 7 mmol/L [facility] CO2 [Moles/Vol] 20 mmol/L Low 21 - 31 mmol/L [facility] Creatinine [Mass/Vol] 0.41 mg/dL Low 0.60 - 1.20 mg/dL [facility] GFR/1.73 sq M.predicted CKD-EPI (S/P/Bld) [Vol rate/Area] 121 - PINF [facility] Comment on above: 2020 CKD EPI Equatio n using Creatinine without Race Comment: Estimated glomerular filtration rate (eGFR) is calculated without a race coefficient. Values should be interpreted in the context of the patient's full clinical presentation. Reference: 1. Kitty Mittal Crews [place], et al.. A Unifying Approach for GFR Estimation: Recommendations of the NKF-ASN Task Force on Reassessing the Inclusion of Race in Diagnosing Kidney Disease. [place] Journal of Kidney Diseases 202;79(2):268-88.e1. 2. N Engl J Med 2021 Vol. 385 Issue 19 Pages 9742-6066 Glucose [Mass/Vol] 68 mg/dL Low 74 - 109 mg/dL [facility] Interpretation and review of laboratory results Abnormal [facility] Potassium [Moles/Vol] 3.1 mmol/L Low 3.5 - 5.0 mmol/L [facility] Comment on above: Hemolysis present Sodium [Moles/Vol] 144 mmol/L 136 - 145 mmol/L [facility] Urea nitrogen [Mass/Vol] 7 mg/dL 7 - 25 mg/dL [facility] CALCIUM, IONIZEDOrdered By: Xiomara Garcia on 12-20-2023 Calcium.ionized (Bld) [Moles/Vol] 1.08 mmol/L Low 1.15 - 1.33 mmol/L [facility] Comment on above: This test was devdavid ped, and its performance characteristics determined by the Department of Pathology of [facility]. It has not been cleared or approved by the FDA. This test is used for clinical purposes only. Interpretation and review of laboratory results Abnormal [facility] CALCIUM, IONIZEDon CR ICA 1.08 mmol/L Low 1.15-1.33 [facility] Comment on above: Result Comment: This test was developed, and its performance characteristics determined by the Department of Pathology of [facility]. It has not been cleared or approved by the FDA. This test is used for clinical purposes only. Performed By: #### C R ICA #### [facility] [address] [place] [address], [id number] CBC WITH DIFFERENTIALon 12-07 Basophils (Bld) [#/Vol] 0.09 10*3/uL 0.00 - 0.20 K/uL [facility] Basophils/100 WBC (Bld) 1.0 % NINF - 1.9 % [facility] Eosinophils (Bld) [#/Vol] 0.12 10*3/uL 0.00 - 0.70 K/uL [facility] Eosinophils/100 WBC (Bld) 1.2 % 0.1 - 4.0 % [facility] Erythrocyte distribution width (RBC) [Ratio] 14.0 % 11.5 - 14.5 % [facility] Hematocrit (Bld) [Volume fraction] 42.6 % 36.0 - 46.0 % [facility] Hemoglobin (Bld) [Mass/Vol] 14.5 g/dL 12.0 - 15.0 g/dL [facility] Interpretation and review of laboratory results Abnormal [facility] Lymphocytes (Bld) [#/Vol] 2.77 10*3/uL 1.00 - 4.80 K/uL [facility] Lymphocytes/100 WBC (Bld) 28.7 % 24.0 - 44.0 % [facility] MCH (RBC) [Entitic mass] 32.2 pg 26.0 - 34.0 pg [facility] MCHC (RBC) [Mass/Vol] 34.0 g/dL 32.0 - 35.9 g/dL [facility] MCV (RBC) [Entitic vol] 95 fL 80 - 100 fL [facility] Monocyte distribution width Auto (Bld) [Entitic vol] 23 High NINF - 20 [facility] Monocytes (Bld) [#/Vol] 0.75 10*3/uL 0.20 - 1.00 K/uL [facility] Monocytes/100 WBC (Bld) 7.8 % 2.0 - 11.0 % [facility] Neutrophils (Bld) [#/Vol] 5.91 10*3/uL 1.50 - 8.00 K/uL [facility] Neutrophils/100 WBC (Bld) 61.3 % 31.0 - 76.0 % [facility] Platelet mean volume (Bld) [Entitic vol] 7.8 fL 7.5 - 11.2 fL [facility] Platelets (Bld) [#/Vol] 269 10*3/uL 150 - 400 K/uL [facility] RBC (Bld) [#/Vol] 4.50 10*6/uL [facility] WBC (Bld) [#/Vol] 9.6 10*3/uL 4.5 - 11.5 K/uL [facility] Basophils (Bld) [#/Vol] 0.09 10*3/uL Normal 0.00-0.20 [facility] Comment on above: Performed By: #### L IP, HEPATIC, CH8, HCG #### [facility] [address] [place] [address], [phone] Basophils/100 WBC (Bld) 1.0 % Normal <=1.9 [facility] Comment on above: Performed By: #### L IP, HEPATIC, CH8, HCG #### S PATHOLOGY LABORATORY [address] [place] [address], Eosinophils (Bld) [#/Vol] 0.12 10*3/uL Normal 0.00-0.70 [facility] Comment on above: Performed By: #### L IP, HEPATIC, CH8, HCG #### S PATHOLOGY LABORATORY [address] [place] [address], Eosinophils/100 WBC (Bld) 1.2 % Normal 0.1-4.0 [facility] Comment on above: Performed By: #### L IP, HEPATIC, CH8, HCG #### S PATHOLOGY LABORATORY [address] [place] [address], Erythrocyte distribution width (RBC) [Ratio] 14.0 % Normal 11.5-14.5 [facility] Comment on above: Performed By: #### L IP, HEPATIC, CH8, HCG #### S PATHOLOGY LABORATORY [address] [place] [address], Hematocrit (Bld) [Volume fraction] 42.6 % Normal 36.0-46.0 [facility] Comment on above: Performed By: #### L IP, HEPATIC, CH8, HCG #### S PATHOLOGY LABORATORY [address] [place] [address], Hemoglobin (Bld) [Mass/Vol] 14.5 g/dL Normal 12.0-15.0 [facility] Comment on above: Performed By: #### L IP, HEPATIC, CH8, HCG #### S PATHOLOGY LABORATORY [address] [place] [address], Lymphocytes (Bld) [#/Vol] 2.77 10*3/uL Normal 1.00-4.80 [facility] Comment on above: Performed By: #### L IP, HEPATIC, CH8, HCG #### S PATHOLOGY LABORATORY [address] [place] [address], Lymphocytes/100 WBC (Bld) 28.7 % Normal 24.0-44.0 [facility] Comment on above: Performed By: #### L IP, HEPATIC, CH8, HCG #### S PATHOLOGY LABORATORY [address] [place] [address], MCH (RBC) [Entitic mass] 32.2 pg Normal 26.0-34.0 [facility] Comment on above: Performed By: #### L IP, HEPATIC, CH8, HCG #### S PATHOLOGY LABORATORY [address] [place] [address], MCHC (RBC) [Mass/Vol] 34.0 g/dL Normal 32.0-35.9 [facility] Comment on above: Performed By: #### L IP, HEPATIC, CH8, HCG #### S PATHOLOGY LABORATORY [address] [place], [place], MCV (RBC) [Entitic vol] 95 fL Normal 80-100 [facility] Comment on above: Performed By: #### L IP, HEPATIC, CH8, HCG #### [email or web address] PATHOLOGY LABORATORY [address] [place] [address], MONOCYTE DISTRIBUTION WIDTH 23 High <=20 [facility] Comment on above: Performed By: #### L IP, HEPATIC, CH8, HCG #### [facility] [[email or web address] PATHOLOGY LABORATORY [address] [place] [address], Monocytes (Bld) [#/Vol] 0.75 10*3/uL Normal 0.20-1.00 [facility] Comment on above: Performed By: #### L IP, HEPATIC, CH8, HCG #### [facility] [[email or web address]] PATHOLOGY LABORATORY [address] [place] [address], Monocytes/100 WBC (Bld) 7.8 % Normal 2.0-11.0 [facility] Comment on above: Performed By: #### L IP, HEPATIC, CH8, HCG #### S PATHOLOGY LABORATORY [address] [place], [place], Neutrophils (Bld) [#/Vol] 5.91 10*3/uL Normal 1.50-8.00 [facility] Comment on above: Performed By: #### L IP, HEPATIC, CH8, HCG #### S PATHOLOGY LABORATORY [address] [place] [address], Neutrophils/100 WBC (Bld) 61.3 % Normal 31.0-76.0 [facility] Comment on above: Performed By: #### L IP, HEPATIC, CH8, HCG #### S PATHOLOGY LABORATORY [address] [place], [place], Platelet mean volume (Bld) [Entitic vol] 7.8 fL Normal 7.5-11.2 [facility] Comment on above: Performed By: #### L IP, HEPATIC, CH8, HCG #### S PATHOLOGY LABORATORY [address] [place], [place], Platelets (Bld) [#/Vol] 269 10*3/uL Normal 150-400 [facility] Comment on above: Performed By: #### L IP, HEPATIC, CH8, HCG #### S PATHOLOGY LABORATORY [address] [place], [place], RBC (Bld) [#/Vol] 4.50 10*6/uL Normal 4.00-5.20 [facility] Comment on above: Performed By: #### L IP, HEPATIC, CH8, HCG #### S PATHOLOGY LABORATORY [address] [place], [place], WBC (Bld) [#/Vol] 9.6 10*3/uL Normal 4.5-11.5 [facility] Comment on above: Performed By: #### L IP, HEPATIC, CH8, HCG #### S PATHOLOGY LABORATORY [address] [place], [place], CT ABD/PELVIS ED I/V EUGENIA W / CONTRASTon 12-20-2023 CT ABD/PELVIS ED I/V EUGENIA W/ CONTRAST EXAMINATION: CT ABD/PELVIS ED I/V EUGENIA W/ CONTRAST 12/20/2023 04:57 AM CLINICAL HISTORY: Neoplasm suspected; Ovarian cyst; RUQ pain ASSOCIATED DIAGNOSIS: Neoplasm suspected Ovarian cyst RUQ pain ORDERING PROVIDER: АННА MA TECHNOLOGISTS NOTE: COMPARISON: None TECHNIQUE: Contiguous axial images were obtained through the abdomen and pelvis from the level of the diaphragmatic domes through the pubic symphysis following bolus administration of intravenous contrast. MPR sagittal and coronal reconstructions were obtained from the axial data. Before infusion of intravenous contrast, radiology personnel investigated the possibility of an allergic history and of any history of reaction to iodinated contrast material. Contrast Protocol: Omnipaque 350 [>or =100lb] 100 ml [<100 lb] 1 ml per 1 lb. INTRA-PROCEDURE MEDS: iohexol (OMNIPAQUE) 350 MG/ML injection 100 mL Route: Intravenous Push FINDINGS: Included images of the lower thorax: No pleural effusion. Nodular opacity in the posterior right lower lobe likely represents an area of atelectasis. Hepatobiliary: Unremarkable liver without biliary dilation. Pancreas: Unremarkable Spleen: Unremarkable Adrenal Glands: Unremarkable Kidneys, ureters, and bladder: No calculi or hydroureteronephrosis. Abdominal and pelvic vasculature: Unremarkable GI tract: No evidence of obstruction. The appendix is within normal limits. Peritoneum and retroperitoneum: No free fluid or free air. Lymph Nodes: No abdominal or pelvic lymphadenopathy. Uterus and adnexa: Status post hysterectomy. There is prominent soft tissue in the region of the upper vagina/cervix measuring 6.3 x 3.3 cm, which may represent postsurgical changes versus soft tissue mass. Left ovarian hypodensities operations support representative of ovarian cysts/follicles measuring up to 2.4 cm. No sizable right ovarian mass or cystic lesion. Visualized musculoskeletal structures: No acute fracture or destructive osseous lesion is identified. There is sacralization of the L5 vertebral body.. IMPRESSION: 1. No acute abdominopelvic process. 2. Prominent soft tissue at the vaginal stump/cervix, possibly representing postsurgical change versus soft tissue mass. Further evaluation with physical exam and pelvic ultrasound is recommended. 3. No ovarian mass identified. Left ovarian cystic lesions suggestive of cysts/follicles. MACRO: None Normal [facility] [employer] CT Abdomen and Pelvis W cont rast IVOrdered By: Davide Cerda on 12-20-2023 CT DLP 315.3 (mGy.cm) [facility] Work Phone: CT Series Abdomen [facility] Work Phone: CTDI VOL 6.8 (mGy) [facility] Work Phone: PHANTOM TYPE IEC Body Dosimetry Phantom [facility] Work Phone: [facility] Work Phone: CT Abdomen and Pelvis W cont rast Miguelina 12-20-2023 EXAMINATION: CT ABD/PELVIS ED I/V EUGENIA W/ CONTRAST 12/20/2023 04:57 AM CLINICAL HISTORY: Neoplasm suspected; Ovarian cyst; RUQ pain ASSOCIATED DIAGNOSIS: Neoplasm suspected Ovarian cyst RUQ pain ORDERING PROVIDER: АННА MA TECHNOLOGISTS NOTE: COMPARISON: None TECHNIQUE: Contiguous axial images were obtained through the abdomen and pelvis from the level of the diaphragmatic domes through the pubic symphysis following bolus administration of intravenous contrast. MPR sagittal and coronal reconstructions were obtained from the axial data. Before infusion of intravenous contrast, radiology personnel investigated the possibility of an allergic history and of any history of reaction to iodinated contrast material. Contrast Protocol: Omnipaque 350 [>or =100lb] 100 ml [<100 lb] 1 ml per 1 lb. INTRA-PROCEDURE MEDS: iohexol (OMNIPAQUE) 350 MG/ML injection 100 mL Route: Intravenous Push FINDINGS: Included images of the lower thorax: No pleural effusion. Nodular opacity in the posterior right lower lobe likely represents an area of atelectasis. Hepatobiliary: Unremarkable liver without biliary dilation. Pancreas: Unremarkable Spleen: Unremarkable Adrenal Glands: Unremarkable Kidneys, ureters, and bladder: No calculi or hydroureteronephrosis. Abdominal and pelvic vasculature: Unremarkable GI tract: No evidence of obstruction. The appendix is within normal limits. Peritoneum and retroperitoneum: No free fluid or free air. Lymph Nodes: No abdominal or pelvic lymphadenopathy. Uterus and adnexa: Status post hysterectomy. There is prominent soft tissue in the region of the upper vagina/cervix measuring 6.3 x 3.3 cm, which may represent postsurgical changes versus soft tissue mass. Left ovarian hypodensities operations support representative of ovarian cysts/follicles measuring up to 2.4 cm. No sizable right ovarian mass or cystic lesion. Visualized musculoskeletal structures: No acute fracture or destructive osseous lesion is identified. There is sacralization of the L5 vertebral body.. IMPRESSION: 1. No acute abdominopelvic process. 2. Prominent soft tissue at the vaginal stump/cervix, possibly representing postsurgical change versus soft tissue mass. Further evaluation with physical exam and pelvic ultrasound is recommended. 3. No ovarian mass identified. Left ovarian cystic lesions suggestive of cysts/follicles. MACRO: None RADIOLOGY Davide Cerda MD - 12/20/2023 EXAMINATION: CT ABD/PELVIS ED I/V EUGENIA W/ CONTRAST 12/20/2023 04:57 AM CLINICAL HISTORY: Neoplasm suspected; Ovarian cyst; RUQ pain ASSOCIATED DIAGNOSIS: Neoplasm suspected Ovarian cyst RUQ pain ORDERING PROVIDER: АННА MA TECHNOLOGISTS NOTE: COMPARISON: None TECHNIQUE: Contiguous axial images were obtained through the abdomen and pelvis from the level of the diaphragmatic domes through the pubic symphysis following bolus administration of intravenous contrast. MPR sagittal and coronal reconstructions were obtained from the axial data. Before infusion of intravenous contrast, radiology personnel investigated the possibility of an allergic history and of any history of reaction to iodinated contrast material. Contrast Protocol: Omnipaque 350 [>or =100lb] 100 ml [<100 lb] 1 ml per 1 lb. INTRA-PROCEDURE MEDS: iohexol (OMNIPAQUE) 350 MG/ML injection 100 mL Route: Intravenous Push FINDINGS: Included images of the lower thorax: No pleural effusion. Nodular opacity in the posterior right lower lobe likely represents an area of atelectasis. Hepatobiliary: Unremarkable liver without biliary dilation. Pancreas: Unremarkable Spleen: Unremarkable Adrenal Glands: Unremarkable Kidneys, ureters, and bladder: No calculi or hydroureteronephrosis. Abdominal and pelvic vasculature: Unremarkable GI tract: No evidence of obstruction. The appendix is within normal limits. Peritoneum and retroperitoneum: No free fluid or free air. Lymph Nodes: No abdominal or pelvic lymphadenopathy. Uterus and adnexa: Status post hysterectomy. There is prominent soft tissue in the region of the upper vagina/cervix measuring 6.3 x 3.3 cm, which may represent postsurgical changes versus soft tissue mass. Left ovarian hypodensities operations support representative of ovarian cysts/follicles measuring up to 2.4 cm. No sizable right ovarian mass or cystic lesion. Visualized musculoskeletal structures: No acute fracture or destructive osseous lesion is identified. There is sacralization of the L5 vertebral body.. IMPRESSION: 1. No acute abdominopelvic process. 2. Prominent soft tissue at the vaginal stump/cervix, possibly representing postsurgical change versus soft tissue mass. Further evaluation with physical exam and pelvic ultrasound is recommended. 3. No ovarian mass identified. Left ovarian cystic lesions suggestive of cysts/follicles. MACRO: None [facility] ED Noteson 12-20-2023 Personal Attendant Authentication Interface Message Text notified of critical CALCIUM value of 5.7. Hard copy of results given to . Normal [facility] [email or web address] ED Provider Noteson 12-20-19 Personal Attendant Authentication Interface Message Text Sign out note: [place] 48 year old female pmh hysterect (no bso), L adnexal mass pf RLQ pain radiating to LLQ. HDS, anxious. Labs, CT wo acute surgical process. HypoNa, hypoCa, hypoK, hypoMg. Repleted. Pelvic US pending. Rpt BMP pending Under my care: Pelvis US came back negative for an acute process. Patient was reassessed, reports that her symptoms are much better. HDS. Has a UTI, was given Rocephin in ED by prior ED team. Will D/C on abx and return precautions. Normal [facility] Personal Attendant Authentication Interface Message Text EMERGENCY DEPARTMENT - VISIT NOTE HISTORY OF PRESENT ILLNESS Chief Complaint Patient presents with Abdominal pain Pt c/o RUQ pain x 1 hr, x1 emesis and dizziness x 2 days History by Independent Historian: patient Lm MONACO is a 48 year old female PMH PE, interstitial cystitis, bipolar disorder, hysterectomy, tubal ligation presenting to the ED for abdominal pain. Patient states it started a few hours prior to arrival, never had it before. Started in her RLQ and spread to the left, sharp and stabbing in severity and constant, worsening. No meds taken for relief. Endorsing nausea and some episodes of diarrhea last few days. Patient states she has been taking an antibiotic (today is day 2) for a recent uti. otherwise no fevers, CP, vomiting, lightheadedness, dizziness. Patient is extremely tearful on exam and states she fears she may , states she's had a lot of family members who have in the hospital. Review of External (Non- ED) Notes: Pelvic US 2019 Small complex cystic structure in the right ovary with thickened irregular septations containing blood flow, raising the possibility of a cystic ovarian neoplasm. MEDICAL HISTORY: Pertinent Past History: Past Medical History: Diagnosis Date Bipolar disorder (HCC) History of pulmonary embolism 2005 s/p surgery, s/p coumadin tx x6mo IC (interstitial cystitis) Pertinent Family History: Family History Problem Relation Age of Onset Breast Cancer Other Colon Cancer Other Ovarian Cancer Other Pertinent Social History: Social History Tobacco Use Smoking status: Every Day Smokeless tobacco: Never Pertinent Social Determinants of Health: Social Determinants of Health with Concerns Tobacco Use: High Risk (01/01/2020) Patient History Smoking Tobacco Use: Every Day Smokeless Tobacco Use: Never Passive Exposure: Not on file Alcohol Use: Not on file Financial Resource Strain: Not on file Food Insecurity: Not on file Transportation Needs: Not on file Physical Activity: Not on file Stress: Not on file Social Connections: Not on file Intimate Partner Violence: Not on file Depression: Not on file Housing Stability: Not on file Utilities: Not on file PHYSICAL EXAM: BP 91/53 Pulse 75 Temp 98.2 ???F (36.8 ???C) (Oral) Resp 18 SpO2 99% GENERAL: anxious appearing HENT: Normal mucous membranes LUNGS: CTAB, no increased WOB CARDIAC: RRR. No JVD, no peripheral edema ABDOMEN: Soft, tender in RLQ and RUQ, no peritoneal signs. MSK: Pulses 2+ bilaterally radially and DP NEURO: A AND Ox3, No facial droop, no obvious CN deficits, moving all extremities spontaneously SKIN: no erythema, rash, jaundice EMERGENCY DEPARTMENT COURSE: COURSE: ED Course as of 12/22/23 1438 SatDec 20, 2023 05 BP: 91/53 [ET] 0526 Heart Rate: 59 [ET] 0526 Respiratory Rate: 14 [ET] 0526 SpO2: 99 % [ET] 0545 Magnesium(!): 1.8 [ET] 0557 Sodium(!): 128 [ET] 0558 Potassium: 3.9 [ET] 0558 Creatinine: 0.70 [ET] 0558 Calcium(!): 8.0 [ET] 0807 Basic Metabolic Panel(!): Glucose 101 Sodium 137 Potassium 4.0 Carbon Dioxide 25 Chloride 104 BUN 8 Creatinine 0.72 Calcium 8.5(!) Anion Gap 12 Estimated GFR 103 Repeat BMP with mild hypocalcemia 8.5, no other electrolyte abnormalities, no electrolytes to be repleted [KS] ED Course User Index [ET] Анна Ma DO [KS] Lore Smith MD MEDS ADMINISTERED IN ED: Medications dextrose 5 % and NaCl 0.9 % with KCl 20 mEq 1000 mL iv infusion ( Intravenous Hold/Not Given 12/20/23 0506) cefTRIAXone (ROCEPHIN) 1,000 mg in dextrose 50 mL ivpb (0 mg Intravenous IV Stop 12/20/23 0710) lactated ringers iv bolus (0 mL Intravenous IV Stop 12/20/23 0701) LORazepam (ATIVAN) 2 MG/ML injection (0.5 mg Intravenous Push Given 12/20/23 0350) ketorolac (TORADOL) 15 MG/ML injection (15 mg Intravenous Push Given 12/20/23 0350) iohexol (OMNIPAQUE) 350 MG/ML injection (100 mL Intravenous Push Bolus given 12/20/23 0447) calcium gluconate 10 % injection (2,000 mg Intravenous Push Given 12/20/23 0524) magnesium sulfate in dextrose 5 % 1,000 mg in 100 mL ivpb (1,000 mg Intravenous IV New Bag 12/20/23 0600) MEDICAL DECISION MAKING AND DISPOSITION: ASSESSMENT AND PLAN: Lm MONACO is a 48 year old female PMH hysterectomy, presenting to the ED for sudden onset abdominal pain. Well appearing, nontoxic on initial impression. Differentials: include but are not limited to SBO, appendicitis, cholecystitis, kidney stone, ovarian torsion, TOA, ectopic, pyelo, uti, vascular, ovarian neoplasm. Independent interpretation: Labs significant for +UTI, mild metabolic derangements related to hypoglycemia, hypocalcemia, hypokalemia and CT A/P with evidence of soft tissue mass at vaginal cuff, unclear etiology. Pelvic/bladder US ordered for further evaluation. Management Decisions AND Secondary Considerations: Patient given fluids, zofran, toradol, ativan, CTX for UTI Ordered m (more content not included)... Normal [facility] HCG, QUANTITATIVEon 12-20-19 24 HCG Qn NINF [facility] Interpretation and review of laboratory results Normal [facility] HCG < 0.6 Normal <5.0 [facility] Comment on above: Performed By: #### L IP, HEPATIC, CH8, HCG #### [facility] [address] [place] [address], [id number] HEPATIC FUNCTION PANELon Albumin [Mass/Vol] 2.5 g/dL Low 3.5 - 5.7 g/dL [facility] ALP [Catalytic activity/Vol] 24 U/L Low [facility] ALT [Catalytic activity/Vol] 4 U/L Low [facility] AST [Catalytic activity/Vol] 12 U/L Low [facility] Comment on above: Hemolysis present Bilirubin [Mass/Vol] 0.3 mg/dL 0.3 - 1 .0 mg/dL [facility] Bilirubin.direct [Mass/Vol] 0.05 mg/dL 0.03 - 0.18 mg/dL [facility] Interpretation and review of laboratory results Abnormal [facility] Protein [Mass/Vol] 4.1 g/dL Low 6.0 - 8.3 g/dL [facility] Albumin [Mass/Vol] 2.5 g/dL Low 3.5-5.7 [facility] Comment on above: Performed By: #### L IP, HEPATIC, CH8, HCG #### [facility] [address] [place] [address], ALK 24 IU/L Low 34-104 [facility] Comment on above: Performed By: #### L IP, HEPATIC, CH8, HCG #### [facility] [address] [place] [address], ALT [Catalytic activity/Vol] 4 U/L Low 7-52 [facility] Comment on above: Performed By: #### L IP, HEPATIC, CH8, HCG #### [facility] [address] [place] [address], AST [Catalytic activity/Vol] 12 U/L Low 13-39 [facility] Comment on above: Result Comment: Hemo lysis present Performed By: #### L IP, HEPATIC, CH8, HCG #### [facility] [address] [place] [address], Bilirubin [Mass/Vol] 0.3 mg/dL Normal 0.3-1.0 [facility] Comment on above: Performed By: #### L IP, HEPATIC, CH8, HCG #### [facility] [address] [place] [address], Bilirubin.direct [Mass/Vol] 0.05 mg/dL Normal 0.03-0.18 [facility] Comment on above: Performed By: #### L IP, HEPATIC, CH8, HCG #### [facility] [address] [place] [address], Protein [Mass/Vol] 4.1 g/dL Low 6.0-8.3 [facility] Comment on above: Performed By: #### L IP, HEPATIC, CH8, HCG #### [facility] [address] [place], [place], LIPASEon 12-20-2023 Interpretation and review of laboratory results Normal [facility] Lipase [Catalytic activity/Vol] 47 U/L [facility] LIP 47 IU/L Normal 11-82 [facility] Comment on above: Performed By: #### L IP, HEPATIC, CH8, HCG #### [facility] [address] [place], [place], MAGNESIUMon 12-20-2023 Interpretation and review of laboratory results Abnormal [facility] Magnesium [Mass/Vol] 1.8 mg/dL Low 1.9 - 2 .7 mg/dL [facility] Magnesium [Mass/Vol] 1.8 mg/dL Low 1.9-2.7 [facility] Comment on above: Performed By: #### M G, CH8 ####[facility] [[email or web address] PATHOLOGY [id number] [place], [place], No Panel Informationon 12-19 Radiology Study observation (narrative) [facility] URINALYSIS WITH REFLEX CULTU RE PERFORMABLEon 12-20-2023 Appearance (U) Clear Clear [facility] Bilirubin Ql (U) Small Abnormal Negative [facility] Color (U) Dark Yellow Colorless [facility] Epithelial cells.squamous LM.HPF (Urine sed) [#/Area] 3-5 [facility] Glucose Auto test strip (U) [Mass/Vol] Negative Negative mg/dL [facility] Hemoglobin Ql (U) Negative Negative [facility] Interpretation and review of laboratory results Abnormal [facility] Ketones Ql (U) Negative Negative mg/dL [facility] Leukocyte esterase Test strip Ql (U) Positive Abnormal Negative [facility] Comment on above: Normal urine specime ns will not produce a positive reaction. Small amounts of leukocyte esterase, causing a positive reaction should be repeated, using a fresh urine specimen, from the same patient. Positive results require further testing for pyuria. Mucus Ql (Urine sed) Present [facility] Nitrite Ql (U) Positive Abnormal Negative [facility] pH (U) 6.0 [pH] 5.0 - 8.0 [facility] Protein (U) [Mass/Vol] 20 mg/dL Negative [facility] Specific gravity (U) [Rel density] 1.032 High NINF - 1.030 [facility] Urobilinogen Qn (U) 3.0 mg/dL Abnormal Negative [facility] WBC (U) [#/Vol] 0-2 [facility] WBC LM.HPF (Urine sed) [#/Area] 11-30 Abnormal [facility] A negative leukocyte esterase AND negative nitrite test or absence of pyuria (urine WBC count <= 5-10) make a UTI (urinary tract infection) very unlikely in a non-neutropenic adult (<=5% likelihood in many studies). A positive leukocyte esterase, nitrite and/or pyuria is a nonspecific result. This can be seen in conditions other than a UTI e.g. asymptomatic bacteriuria, gynecologic infections, sexually transmitted infections, and noninfectious conditions (positive predictive value for UTI around 50%) [facility] Glucose Ql (U) Negative Normal Negative [facility] Comment on above: Order Comment: A neg ative leukocyte esterase AND negative nitrite test or absence of pyuria (urine WBC count <= 5-10) make a UTI (urinary tract infection) very unlikely in a non-neutropenic adult (<=5% likelihood in many studies). A positive leukocyte esterase, nitrite and/or pyuria is a nonspecific result. This can be seen in conditions other than a UTI e.g. asymptomatic bacteriuria, gynecologic infections, sexually transmitted infections, and noninfectious conditions (positive predictive value for UTI around 50%) Performed By: #### L IP, HEPATIC, CH8, HCG #### [facility] [address] [place] [address], [id number] Protein (U) [Mass/Vol] 20 mg/dL Normal Negative [facility] Comment on above: Order Comment: A neg ative leukocyte esterase AND negative nitrite test or absence of pyuria (urine WBC count <= 5-10) make a UTI (urinary tract infection) very unlikely in a non-neutropenic adult (<=5% likelihood in many studies). A positive leukocyte esterase, nitrite and/or pyuria is a nonspecific result. This can be seen in conditions other than a UTI e.g. asymptomatic bacteriuria, gynecologic infections, sexually transmitted infections, and noninfectious conditions (positive predictive value for UTI around 50%) Performed By: #### L IP, HEPATIC, CH8, HCG #### [facility] [address] [place] [address], SQUAMOUS EPITHELIAL 3-5 Normal 0-10 [facility] Comment on above: Order Comment: A neg ative leukocyte esterase AND negative nitrite test or absence of pyuria (urine WBC count <= 5-10) make a UTI (urinary tract infection) very unlikely in a non-neutropenic adult (<=5% likelihood in many studies). A positive leukocyte esterase, nitrite and/or pyuria is a nonspecific result. This can be seen in conditions other than a UTI e.g. asymptomatic bacteriuria, gynecologic infections, sexually transmitted infections, and noninfectious conditions (positive predictive value for UTI around 50%) Performed By: #### L IP, HEPATIC, CH8, HCG #### [facility] [address] [place] [address], U APPEAR Clear Normal Clear [facility] Comment on above: Order Comment: A neg ative leukocyte esterase AND negative nitrite test or absence of pyuria (urine WBC count <= 5-10) make a UTI (urinary tract infection) very unlikely in a non-neutropenic adult (<=5% likelihood in many studies). A positive leukocyte esterase, nitrite and/or pyuria is a nonspecific result. This can be seen in conditions other than a UTI e.g. asymptomatic bacteriuria, gynecologic infections, sexually transmitted infections, and noninfectious conditions (positive predictive value for UTI around 50%) Performed By: #### L IP, HEPATIC, CH8, HCG #### [facility] [address] [place] [address], U BILI Small Abnormal Negative [facility] Comment on above: Order Comment: A neg ative leukocyte esterase AND negative nitrite test or absence of pyuria (urine WBC count <= 5-10) make a UTI (urinary tract infection) very unlikely in a non-neutropenic adult (<=5% likelihood in many studies). A positive leukocyte esterase, nitrite and/or pyuria is a nonspecific result. This can be seen in conditions other than a UTI e.g. asymptomatic bacteriuria, gynecologic infections, sexually transmitted infections, and noninfectious conditions (positive predictive value for UTI around 50%) Performed By: #### L IP, HEPATIC, CH8, HCG #### [facility] [address] [place] [address], U BLOOD Negative Normal Negative [facility] Comment on above: Order Comment: A neg ative leukocyte esterase AND negative nitrite test or absence of pyuria (urine WBC count <= 5-10) make a UTI (urinary tract infection) very unlikely in a non-neutropenic adult (<=5% likelihood in many studies). A positive leukocyte esterase, nitrite and/or pyuria is a nonspecific result. This can be seen in conditions other than a UTI e.g. asymptomatic bacteriuria, gynecologic infections, sexually transmitted infections, and noninfectious conditions (positive predictive value for UTI around 50%) Performed By: #### L IP, HEPATIC, CH8, HCG #### [facility] [address] [place] [address], U COLOR Dark Yellow Normal Colorless [facility] Comment on above: Order Comment: A neg ative leukocyte esterase AND negative nitrite test or absence of pyuria (urine WBC count <= 5-10) make a UTI (urinary tract infection) very unlikely in a non-neutropenic adult (<=5% likelihood in many studies). A positive leukocyte esterase, nitrite and/or pyuria is a nonspecific result. This can be seen in conditions other than a UTI e.g. asymptomatic bacteriuria, gynecologic infections, sexually transmitted infections, and noninfectious conditions (positive predictive value for UTI around 50%) Performed By: #### L IP, HEPATIC, CH8, HCG #### [facility] [address] [place] [address], U KETONE Negative Normal Negative [facility] Comment on above: Order Comment: A neg ative leukocyte esterase AND negative nitrite test or absence of pyuria (urine WBC count <= 5-10) make a UTI (urinary tract infection) very unlikely in a non-neutropenic adult (<=5% likelihood in many studies). A positive leukocyte esterase, nitrite and/or pyuria is a nonspecific result. This can be seen in conditions other than a UTI e.g. asymptomatic bacteriuria, gynecologic infections, sexually transmitted infections, and noninfectious conditions (positive predictive value for UTI around 50%) Performed By: #### L IP, HEPATIC, CH8, HCG #### [facility] [address] [place] [address], U LEUK Positive Abnormal Negative [facility] [employer] [facility] Comment on above: Order Comment: A neg ative leukocyte esterase AND negative nitrite test or absence of pyuria (urine WBC count <= 5-10) make a UTI (urinary tract infection) very unlikely in a non-neutropenic adult (<=5% likelihood in many studies). A positive leukocyte esterase, nitrite and/or pyuria is a nonspecific result. This can be seen in conditions other than a UTI e.g. asymptomatic bacteriuria, gynecologic infections, sexually transmitted infections, and noninfectious conditions (positive predictive value for UTI around 50%) Result Comment: Norm al urine specimens will not produce a positive reaction. Small amounts of leukocyte esterase, causing a positive reaction should be repeated, using a fresh urine specimen, from the same patient. Positive results require further testing for pyuria. Performed By: #### L IP, HEPATIC, CH8, HCG #### [facility] [address] [place], [place], U MUCOUS Present Normal [facility] [employer] [facility] Comment on above: Order Comment: A neg ative leukocyte esterase AND negative nitrite test or absence of pyuria (urine WBC count <= 5-10) make a UTI (urinary tract infection) very unlikely in a non-neutropenic adult (<=5% likelihood in many studies). A positive leukocyte esterase, nitrite and/or pyuria is a nonspecific result. This can be seen in conditions other than a UTI e.g. asymptomatic bacteriuria, gynecologic infections, sexually transmitted infections, and noninfectious conditions (positive predictive value for UTI around 50%) Performed By: #### L IP, HEPATIC, CH8, HCG #### [facility] [address] [place], [place], U NITRITE Positive Abnormal Negative [facility] [employer] [facility] Comment on above: Order Comment: A neg ative leukocyte esterase AND negative nitrite test or absence of pyuria (urine WBC count <= 5-10) make a UTI (urinary tract infection) very unlikely in a non-neutropenic adult (<=5% likelihood in many studies). A positive leukocyte esterase, nitrite and/or pyuria is a nonspecific result. This can be seen in conditions other than a UTI e.g. asymptomatic bacteriuria, gynecologic infections, sexually transmitted infections, and noninfectious conditions (positive predictive value for UTI around 50%) Performed By: #### L IP, HEPATIC, CH8, HCG #### [facility] [address] [place], [place], U PH 6.0 Normal 5.0-8.0 [facility] Comment on above: Order Comment: A neg ative leukocyte esterase AND negative nitrite test or absence of pyuria (urine WBC count <= 5-10) make a UTI (urinary tract infection) very unlikely in a non-neutropenic adult (<=5% likelihood in many studies). A positive leukocyte esterase, nitrite and/or pyuria is a nonspecific result. This can be seen in conditions other than a UTI e.g. asymptomatic bacteriuria, gynecologic infections, sexually transmitted infections, and noninfectious conditions (positive predictive value for UTI around 50%) Performed By: #### L IP, HEPATIC, CH8, HCG #### [facility] [address] [place], [place], U RBC 0-2 Normal 0-2 [facility] [employer] [facility] Comment on above: Order Comment: A neg ative leukocyte esterase AND negative nitrite test or absence of pyuria (urine WBC count <= 5-10) make a UTI (urinary tract infection) very unlikely in a non-neutropenic adult (<=5% likelihood in many studies). A positive leukocyte esterase, nitrite and/or pyuria is a nonspecific result. This can be seen in conditions other than a UTI e.g. asymptomatic bacteriuria, gynecologic infections, sexually transmitted infections, and noninfectious conditions (positive predictive value for UTI around 50%) Performed By: #### L IP, HEPATIC, CH8, HCG #### [facility] [address] [place], [place], U SG 1.032 High <=1.030 [facility] [employer] [facility] Comment on above: Order Comment: A neg ative leukocyte esterase AND negative nitrite test or absence of pyuria (urine WBC count <= 5-10) make a UTI (urinary tract infection) very unlikely in a non-neutropenic adult (<=5% likelihood in many studies). A positive leukocyte esterase, nitrite and/or pyuria is a nonspecific result. This can be seen in conditions other than a UTI e.g. asymptomatic bacteriuria, gynecologic infections, sexually transmitted infections, and noninfectious conditions (positive predictive value for UTI around 50%) Performed By: #### L IP, HEPATIC, CH8, HCG #### [facility] [address] [place] [address], U UROBILI 3.0 mg/dL Abnormal Negative [facility] Comment on above: Order Comment: A neg ative leukocyte esterase AND negative nitrite test or absence of pyuria (urine WBC count <= 5-10) make a UTI (urinary tract infection) very unlikely in a non-neutropenic adult (<=5% likelihood in many studies). A positive leukocyte esterase, nitrite and/or pyuria is a nonspecific result. This can be seen in conditions other than a UTI e.g. asymptomatic bacteriuria, gynecologic infections, sexually transmitted infections, and noninfectious conditions (positive predictive value for UTI around 50%) Performed By: #### L IP, HEPATIC, CH8, HCG #### [facility] [address] [place] [address], U WBC 11-30 Abnormal 0-2 [facility] Comment on above: Order Comment: A neg ative leukocyte esterase AND negative nitrite test or absence of pyuria (urine WBC count <= 5-10) make a UTI (urinary tract infection) very unlikely in a non-neutropenic adult (<=5% likelihood in many studies). A positive leukocyte esterase, nitrite and/or pyuria is a nonspecific result. This can be seen in conditions other than a UTI e.g. asymptomatic bacteriuria, gynecologic infections, sexually transmitted infections, and noninfectious conditions (positive predictive value for UTI around 50%) Performed By: #### L IP, HEPATIC, CH8, HCG #### [facility] [address] [place] [address], URINE CULTUREon 12-20-2023 Bacteria identified Cx Nom (U) C URINE: No growth of greater than 1,000 CFU/ml Normal [facility] Comment on above: Performed By: #### L IP, HEPATIC, CH8, HCG #### [facility] [address] [place], [id number] US PELVIS/TRANSVAG (ROBIN)on 0 12-20-2023 US PELVIS/TRANSVAG (ROBIN) EXAMINATION: US PELVIS/TRANSVAG (ROBIN) 12/20/2023 06:26 AM CLINICAL HISTORY: vaginal/soft tissue mass seen on CT A/P, history of hysterectomy and adnexal mass with sptations and blood flow a few years ago lost to follow up ASSOCIATED DIAGNOSIS: ORDERING PROVIDER: АННА [employer] NOTE: Limited exam due to overlying bowel gas. S/P Hysterectomy. Recent CT showed prominent soft tissue at the vaginal stump/cervix. TV exam limited due to pt discomfort. COMPARISON: CT ABD/PELVIS ED I/V EUGENIA W/ CONTRAST 12/20/2023, 4:58 AM US PELVIS/TRANSVAG/DOPPLER 12/26/2019, 3:40 PM TECHNIQUE: Ultrasound real time scan with image documentation using transabdominal and transvaginal approaches to evaluate the pelvic contents was performed. FINDINGS: Overlying bowel gas limits image quality. Uterus: Status post hysterectomy. Right Ovary Parenchyma: Possible corpus luteum in the right ovary. The right ovary was only seen transvaginally. Ovarian size: 3.0 x 1.4 x 2.1 cm. Volume: 4.6 cubic cm. Left Ovary Parenchyma: Normal morphology and echotexture. 1.7 x 1.1 x 1.7 cm anechoic structure within the left ovary, likely a simple cyst or dominant follicle. Ovarian size: 3.1 x 1.7 x 2.7 cm. Volume: 7.2 cubic cm. Free fluid None. Other findings Limited evaluation of the surgical bed secondary to overlying bowel gas. No discrete soft tissue lesion or fluid collection. IMPRESSION: 1. Status post hysterectomy. No discrete soft tissue lesion or fluid collection visualized within the limits of this exam. Further evaluation may be performed with MRI as clinically indicated. 2. Previously noted complex cystic lesion in the right ovary is no longer evident. 3. Possible corpus luteum in the right ovary and small simple cyst or dominant follicle in the left ovary. MACRO: None Normal [facility] [employer] US Pelvis transabdominal and transvaginalon 12-20-2023 EXAMINATION: US PELVIS/TRANSVAG (ROBIN) 12/20/2023 06:26 AM CLINICAL HISTORY: vaginal/soft tissue mass seen on CT A/P, history of hysterectomy and adnexal mass with sptations and blood flow a few years ago lost to follow up ASSOCIATED DIAGNOSIS: ORDERING PROVIDER: АННА [employer] NOTE: Limited exam due to overlying bowel gas. S/P Hysterectomy. Recent CT showed prominent soft tissue at the vaginal stump/cervix. TV exam limited due to pt discomfort. COMPARISON: CT ABD/PELVIS ED I/V EUGENIA W/ CONTRAST 12/20/2023, 4:58 AM US PELVIS/TRANSVAG/DOPPLER 12/26/2019, 3:40 PM TECHNIQUE: Ultrasound real time scan with image documentation using transabdominal and transvaginal approaches to evaluate the pelvic contents was performed. FINDINGS: Overlying bowel gas limits image quality. Uterus: Status post hysterectomy. Right Ovary Parenchyma: Possible corpus luteum in the right ovary. The right ovary was only seen transvaginally. Ovarian size: 3.0 x 1.4 x 2.1 cm. Volume: 4.6 cubic cm. Left Ovary Parenchyma: Normal morphology and echotexture. 1.7 x 1.1 x 1.7 cm anechoic structure within the left ovary, likely a simple cyst or dominant follicle. Ovarian size: 3.1 x 1.7 x 2.7 cm. Volume: 7.2 cubic cm. Free fluid None. Other findings Limited evaluation of the surgical bed secondary to overlying bowel gas. No discrete soft tissue lesion or fluid collection. IMPRESSION: 1. Status post hysterectomy. No discrete soft tissue lesion or fluid collection visualized within the limits of this exam. Further evaluation may be performed with MRI as clinically indicated. 2. Previously noted complex cystic lesion in the right ovary is no longer evident. 3. Possible corpus luteum in the right ovary and small simple cyst or dominant follicle in the left ovary. MACRO: None RADIOLOGY Erin Banerjee M D - 12/20/2023 EXAMINATION: US PELVIS/TRANSVAG (ROBIN) 12/20/2023 06:26 AM CLINICAL HISTORY: vaginal/soft tissue mass seen on CT A/P, history of hysterectomy and adnexal mass with sptations and blood flow a few years ago lost to follow up ASSOCIATED DIAGNOSIS: ORDERING PROVIDER: АННА [employer] NOTE: Limited exam due to overlying bowel gas. S/P Hysterectomy. Recent CT showed prominent soft tissue at the vaginal stump/cervix. TV exam limited due to pt discomfort. COMPARISON: CT ABD/PELVIS ED I/V EUGENIA W/ CONTRAST 12/20/2023, 4:58 AM US PELVIS/TRANSVAG/DOPPLER 12/26/2019, 3:40 PM TECHNIQUE: Ultrasound real time scan with image documentation using transabdominal and transvaginal approaches to evaluate the pelvic contents was performed. FINDINGS: Overlying bowel gas limits image quality. Uterus: Status post hysterectomy. Right Ovary Parenchyma: Possible corpus luteum in the right ovary. The right ovary was only seen transvaginally. Ovarian size: 3.0 x 1.4 x 2.1 cm. Volume: 4.6 cubic cm. Left Ovary Parenchyma: Normal morphology and echotexture. 1.7 x 1.1 x 1.7 cm anechoic structure within the left ovary, likely a simple cyst or dominant follicle. Ovarian size: 3.1 x 1.7 x 2.7 cm. Volume: 7.2 cubic cm. Free fluid None. Other findings Limited evaluation of the surgical bed secondary to overlying bowel gas. No discrete soft tissue lesion or fluid collection. IMPRESSION: 1. Status post hysterectomy. No discrete soft tissue lesion or fluid collection visualized within the limits of this exam. Further evaluation may be performed with MRI as clinically indicated. 2. Previously noted complex cystic lesion in the right ovary is no longer evident. 3. Possible corpus luteum in the right ovary and small simple cyst or dominant follicle in the left ovary. MACRO: None [facility] US Pelvis transabdominal and transvaginalOrdered By: Erin Banerjee on 12-20-2023 [facility] Work Phone: OVon 10-03-2023 CNOV Office Visit ([facility] ) ----- LM MONACO ([id number]) 1975 F Date Time Provider Department 10/03/23 8:20 AM WENDY HEATON [facility] During your visit today, we recorded the following information about you: Temperature Pulse Respiration Blood pressure 97.9 degrees 86/minute 16/minute 122/83 Wendy Heaton PA-C 10/03/2023 8:40 AM Signed This note was created using [employer]. Subjective Lm Monaco is a 48 year old female presents with cough, congestion, sore throat, vomiting, diarrhea. This is day 5. She is taking tylenol, motrin, advil PM. No fever, chest pain, SOB. She is an active smoker. No history of asthma or PNA. She has been around coworkers who have been sick with same. Review of Systems Constitutional: Negative for chills and fever. HENT: Positive for congestion, ear pain and sore throat. Negative for trouble swallowing. Respiratory: Positive for cough. Negative for shortness of breath and wheezing. Cardiovascular: Negative for chest pain. Gastrointestinal: Positive for diarrhea and vomiting. Negative for abdominal pain. Musculoskeletal: Positive for myalgias. Negative for neck pain and neck stiffness. Skin: Negative for rash. Neurological: Positive for headaches. Objective BP 122/83 (BP Site: Right Arm) Pulse 86 Temp 36.6 ?C (97.9 ?F) (Oral) Resp 16 SpO2 100% Physical Exam Vitals and nursing note reviewed. Constitutional: General: She is not in acute distress. Appearance: Normal appearance. She is not toxic-appearing. HENT: Head: Normocephalic and atraumatic. Right Ear: Tympanic membrane normal. Left Ear: Tympanic membrane normal. Nose: Congestion and rhinorrhea present. Mouth/Throat: Mouth: Mucous membranes are moist. Pharynx: No oropharyngeal exudate or posterior oropharyngeal erythema. Eyes: Conjunctiva/sclera: Conjunctivae normal. Cardiovascular: Rate and Rhythm: Normal rate and regular rhythm. Pulmonary: Effort: Pulmonary effort is normal. No respiratory distress. Breath sounds: Wheezing present. Musculoskeletal: Cervical back: Normal range of motion. No rigidity. Skin: Findings: No rash. Neurological: Mental Status: She is alert. Assessment and Plan 1. Bronchitis - ICD9: 490, ICD10: J40 - continue OTC cold medicine - tylenol, motrin for fever, aches - medrol dose pack and doxycycline - smoking cessation given - ER for worsening cough, SOB, CP, high fever, etc - METHYLPREDNISOLONE 4 MG TABLETS IN A DOSE PACK - DOXYCYCLINE MONOHYDRATE 100 MG TABLET MADDY Lux Chelsea E, PA-C 10/03/2023 8:39 AM Signed ACUTE BRONCHITIS: You have acute bronchitis. This means the airway passages in your lungs are inflamed. Bronchitis may be caused by viruses or bacteria. Inhaling cigarette smoke will always make it worse. Exposure to irritating chemicals or second hand smoke as well as allergies can contribute to bronchitis. Repeat episodes of bronchitis may cause lifelong lung problems. Acute bronchitis is usually treated with rest, fluids, cough medicine, and possibly antibiotics or inhaled medicine to open up the small airways. It is very important that you avoid smoke and drink increased amounts of fluids. A cool air vaporizer can help thin bronchial secretions. This makes it easier to cough and clear your chest. If you are a cigarette smoker, consider using nicotine gum or skin patches to help you withdraw. Recovery from bronchitis is often slow, but you should start feeling better after 2-3 days of treatment. Please call your doctor or return here if you have any of the following symptoms: Increased fever, chills, or chest pain. Severe shortness of breath or bloody sputum. Do not improve after 3 days of proper treatment.g. Increasing pain, severe headache, or toothache. Nausea, vomiting, or unusual drowsiness. Take steroid pack as prescribed OTC Delsym cough syrup Take antibiotic (Doxycycline) as prescribed. Take with food, please. Probiotic or Yogurt daily recommended. Be sure to drink a full glass of water, and remain upright for at least ~1 hour after each dose. Make sure to finish out the entire prescription even if symptoms resolve. Follow up if no better in 3-5 days To ER if any chest pain, troubles breathing, drooling, troubles swallowing, swelling of your throat especially one side, neck pain/stiffness, rash, abdominal pain, intractable nausea vomiting or diarrhea, bloody or dark urine stool or vomit, pain or swelling behind ear(s), severe headache, dizziness/lightheadedness , fevers/chills, or worsening of symptoms whatsoever. Referring Provider: SELF [200] Allergies As of Date: 10/03/2023 Noted Allergy Reaction FLAGYL (METRONIDAZOLE) 03/10/2023 10 - Anaphylaxis Date Reviewed: 10/03/2023 Reviewed by: [place] Ellsworth LPN - Fully Assessed Reason for Visit: Cough [28] Cmt: Cough i (more content not included)... Normal [facility] ED Emergency Severity Index Adult-Texton 10-02-2023 ED Emergency Severity Index Adult-Text DEMETRIO - Adult Entered On: 10/02/2023 21:05 EDT Performed On: 10/02/2023 21:04 EDT by Marilyn Joseph RN DEMETRIO DCP GENERIC CODE Visit Reason : COUGH/CHEST PRESSURE Tracking Triage Date/Time : 10/02/2023 21:04 EDT Tracking Reg Status : Requested Tracking Acuity : 3V-Urgent Tracking Group : [facility] Tracking aMrilyn Joseph RN - 10/02/2023 21:04 EDT Normal [facility] ED Triage PREFORM PLATE MAKER - Texton 10-01 ED Triage PREFORM PLATE MAKER - Text ED Triage PREFORM PLATE MAKER Enter ed On: 10/02/2023 20:39 EDT Performed On: 10/02/2023 20:38 EDT by Mat Hampton RN Triage Temperature Oral : 36.8 degC(Converted to: 98.2 degF) Systolic Blood Pressure : 122 mmHg Diastolic Blood Pressure : 76 mmHg Heart Rate : 72 bpm Respiratory Rate : 20 br/min Oxygen Saturation : 97 % Oxygen Therapy : Room air ED Document Sepsis Screening : Document Sepsis Screening ED Document Reason for Visit : Document Reason for Visit Scale Type : Standing Scale Weight Dosing : 54.1 kg(Converted to: 119 lb 4 oz) BMI Dosing Calculation : 20 Height/Length Dosing : 162.56 cm(Converted to: 5 ft 4 in) Pain Symptoms : Yes Pain Scale Age Range : VAS (8 yrs & older) Pain Level (VAS) : 1 = Mild Pain Mat Hampton RN - 10/02/2023 20:38 EDT (As Of: 10/02/2023 20:39:34 EDT) Problems(Active) Pulmonary embolus RESOLVED (SNOMED CT :46431644 ) Name of Problem: Pulmonary embolus RESOLVED ; Recorder: Katiana Love RN; Confirmation: Confirmed ; Classification: Medical ; Code: [id number] ; Contributor System: [employer] ; Last Updated: 07/02/2023 10:13 EDT ; Life Cycle Date: 07/02/2023 ; Life Cycle Status: Active ; Vocabulary: SNOMED CT Diagnoses(Active) Chest pressure - Adult Date: 10/02/2023 ; Diagnosis Type: Reason For Visit ; Confirmation: Confirmed ; Clinical Dx: Chest pressure - Adult ; Classification: Medical ; Clinical Service: Emergency medicine ; Code: PNED ; Probability: 0 ; Diagnosis Code: [id number] Cough Date: 10/02/2023 ; Diagnosis Type: Reason For Visit ; Confirmation: Confirmed ; Clinical Dx: Cough ; Classification: Medical ; Clinical Service: Emergency medicine ; Code: PNED ; Probability: 0 ; Diagnosis Code: [id number] Reason for Visit (As Of: 10/02/2023 20:39:34 EDT) Problems(Active) Pulmonary embolus RESOLVED (SNOMED CT :14142070 ) Name of Problem: Pulmonary embolus RESOLVED ; Recorder: Katiana Love RN; Confirmation: Confirmed ; Classification: Medical ; Code: [id number] ; Contributor System: [employer]Drive ; Last Updated: 07/02/2023 10:13 EDT ; Life Cycle Date: 07/02/2023 ; Life Cycle Status: Active ; Vocabulary: SNOMED CT Diagnoses(Active) Chest pressure - Adult Date: 10/02/2023 ; Diagnosis Type: Reason For Visit ; Confirmation: Confirmed ; Clinical Dx: Chest pressure - Adult ; Classification: Medical ; Clinical Service: Emergency medicine ; Code: PNED ; Probability: 0 ; Diagnosis Code: [id number] Cough Date: 10/02/2023 ; Diagnosis Type: Reason For Visit ; Confirmation: Confirmed ; Clinical Dx: Cough ; Classification: Medical ; Clinical Service: Emergency medicine ; Code: PNED ; Probability: 0 ; Diagnosis Code: [id number] Sepsis Screening Sepsis Vitals Screening ED : None/ NA(Peds) Mat Hampton RN - 10/02/2023 20:38 EDT Normal [facility] CNOVon 09-30-2023 CNOV Office Visit (UCMBHT ) ----- LM MONACO ([id number]) 1975 F Date Time Provider Department 09/30/23 2:35 PM DEVANTE GANDHI [facility] During your visit today, we recorded the following information about you: Temperature Pulse Respiration Blood pressure 98 degrees 110/minute 22/minute 111/74 Roma James MA 09/30/2023 2:40 PM Signed Patient states that she got back from [place] on Saturday. She states yesterday she had some abd pain and diarrhea. Today she woke up and does not have a voice, sore and scratchy throat. NO fevers. NO medications. Devante Gandhi DO 09/30/2023 3:21 PM Signed Urgent Care Note History of Present Illness: Lm Monaco is a 48 year old female who presents today for chief complaint: Sore Throat Patient states that she got back from [place] on Saturday. Today she woke up and does not have a voice, sore and scratchy throat. Patient presents with complaint of Sore throat that started this morning. Sore throat is 4/10 in severity, and body. - Associated with: abdominal pain and diarrhea x6 yesterday. Laryngitis. chills, headache, nausea, runny nose, congestion, cough, sneezing. - Has tried: NO medications. - Denies: fever,dizziness, vomiting, ear pain, difficulty breathing, abdominal pain, diarrhea, rash, sick contacts Review of Symptoms: Pertinent positives and negatives noted per HPI otherwise review of systems is negative. Past Medical History: No past medical history on file. No past surgical history on file. Current Outpatient Medications Medication Sig ibuprofen (MOTRIN) 600 mg tablet Take 600 mg by mouth as needed for pain. orphenadrine ER (NORFLEX) 100 mg tablet Take 1 tablet by mouth every 12 hours. amoxicillin (AMOXIL) 500 mg capsule TAKE 1 CAPSULE BY MOUTH THREE TIMES DAILY DIRECTED (Patient not taking: Reported on 07/29/2023) pseudoephedrine (SUDAFED) 30 mg tablet Take 1 tablet by mouth every 4 hours as needed for cold/allergy symptoms (ear pressure). (Patient not taking: Reported on 07/04/2023) azelastine 0.1% nasal spray Use 2 Sprays in each nostril two times a day. (Patient not taking: Reported on 07/04/2023) diclofenac, EC, (VOLTAREN) 75 mg EC tablet Take 1 tablet by mouth two times a day as needed (for pain). (Patient not taking: Reported on 07/04/2023) fluconazole (DIFLUCAN) 150 mg tablet Take one tablet by mouth and you can repeat another dose in 72 hours if symptoms persist (Patient not taking: Reported on 07/29/2023) fluticasone (FLONASE) 50 mcg/actuation nasal spray Use 1 Dennison in each nostril daily at bedtime. (Patient not taking: Reported on 07/04/2023) No current facility-administered medications for this visit. ALLERGIES Allergen Reactions Flagyl [Metronidazo* Anaphylaxis Objective: BP 111/74 Pulse 110 Temp (Src) 98 (Temporal) Resp 22 SpO2 97% GENERAL: Appears nourished AND normally developed for age. EYES: Head exam is unremarkable. No scleral icterus or orbital trauma noted. HEENT: Mucous membranes moist. Nasal turbinates are boggy and erythematous consistent with a URI. Not too much rhinorrhea. LTM normal RTM normal, Throat is erythematous with Bilateral tonsillar enlargement, and exudates. Moderate amount of post nasal drip. Neck is supple without prominent lymphadenopathy. LUNGS: Lungs are clear to auscultation. Some cough reported, but no respiratory distress at this time. CARDIAC: Rhythm is regular. No dysrhythmias or murmurs. EXTREMITIES: Nonedematous, with no obvious deformities. SKIN: Good color. No pallor. Warm/dry. No significant rashes. NEURO: No obvious neurological deficits, moves without evidence of cerebellar infarction. Assessment and Plan: ASSESSMENT/PLAN: 1. Sore throat - ICD9: 462, ICD10: J02.9 (primary diagnosis) - suspect viral - Rapid Strep negative in the office today - STREP A MOLECULAR (POC) - COVID NAAT, UPPER RESPIRATORY, ROUTINE 2. Acute viral pharyngitis - ICD9: 462, ICD10: J02.9 - suspect viral - Rapid Strep negative in the office today - Discussed supportive care treatment with fluids, rest and analgesia. patient offered Decadron in office today for viral pharyngitis. At this time. Condition recommendations below for symptom management. Patient encouraged to follow-up with PCP within 10 to 14 days. Symptom management: Increase fluid intake and REST as much as possible Can try a antihistamine (ie: zytrec-cetirizine, Claritin, or Coretta) for allergy symptoms may be helpful daily for 5 days. Saline nasal spray or nasal steroid spray (ie: Flonase -fluticasone propionate) daily for five days. May use a cool mist or humidifier Steamy baths or showers can be helpful to moisten the airways Can take acetaminophen and/or motrin, as directed, for pain or fever, as directed Mucinex (guafenesin) may help manage mucus Frequent hand-washing with soap and water Can dr (more content not included)... Normal [facility] STREP A MOLECULAR (POC)on Procedural Control Valid [facility] Strep A (POCT) Negative Negative [facility] CNOVon 07-29-2023 CNOV Office Visit (SPMBHT ) ----- LM MONACO ([id number]) 1975 F Date Time Provider Department 07/29/23 12:40 PM KINGSLEY MARQUES SPMT During your visit today, we recorded the following information about you: Temperature Pulse Blood pressure Weight 98.7 degrees 87/minute 115/74 51.5 kg Height 1.648 m Kingsley Marques MD 07/29/2023 1:22 PM Signed Spine Care Path Radicular Leg Pain - Acute (0 - 6 weeks) Initial Exam SUBJECTIVE HISTORY OF PRESENT ILLNESS: Lm Monaco is a 48 year old female with PMH of interstitial cystitis who presents with a chief complaint of leg pain and is seen in consultation requested by Wendy Heaton PA-C for an opinion regarding this. My final recommendations will be communicated back to the requesting physician by way of shared medical record or letter via US mail. Patient presents today for evaluation of left leg pain, posterior aspect of her thigh this has been present for about a month Pain is around 3-4 out of 10 Pain is pulsating and jabbing Can't stand for too long in one place when pain comes on Was in the urgent care 07/04/2023 due to the symptoms Prior Therapy: Flexeril Prednisone - helped but made her feel jittery Ibuprofen - helps Had spine surgery in 2005, states she crushed L3 and L4 from sledding accident Litigation: No Workers' Compensation: No YELLOW AND BLUE FLAGS No-Neg Attitude; Back Pain is Disabling No-Avoiding Activity (for Fear of Pain) No-Depression or Anxiety Disorders No-Social Problems No-Substance Use Disorder No-Job Dissatisfaction No-Financial Disincentives Patient Entered Questionnaires 07/28/2023 Spine Questions Pain Location: Lower back Pain Duration: Less than 1 month Symptoms from neck/cervical spine: No Employment Status: Working now Involved in law suit/legal claim: No 07/28/2023 Spine Red Flags Any type of cancer: No Unexplained fever: No Bowel or bladder disfunction: No Unintentional weight loss: No Osteoporosis: No PROMIS Score Percentiles 07/28/2023 Physical Health Physical Function Percentile 16* Sleep Percentile 10 Fatigue Percentile 21* Pain Interference Percentile 12 07/28/2023 PROMIS SOCIAL ROLE SCORE Social Role Satisfaction Percentile 58 07/28/2023 PROMIS Global Health Scale Physical Health Percentile 31 Mental Health Percentile 73 Percentiles provide an indication of how the patient's score ranks in relation to the general population. Higher percentile rankings indicate better function/quality of life. 50th percentile is the average of the general population and indicates half of respondents had a worse score. Depression Screenin07/28/2023 PHQ-9 Score 1 07/28/2023 PHQ-9 Self-harm Question Question 9 Not at all PHQ-9 Self-Harm (Item 9) response options: 0 Not at all 1 Several days 2 More than half the days 3 Nearly every day PHQ-9 Levels: 0-4 No - mild depression 5-9 Mild depression 10-14 Moderate depression 15-19 Moderately severe depression 20-27 Severe depression There is no problem list on file for this patient. No past medical history on file. No past surgical history on file. Social History Tobacco Use Smoking status: Every Day Types: Cigarettes Passive exposure: Current Smokeless tobacco: Never Vaping Use Vaping Use: Never used No family history on file. ALLERGIES Allergen Reactions Flagyl [Metronidazo* Anaphylaxis CURRENT MEDICATIONS: ibuprofen (MOTRIN) 600 mg tablet Take 600 mg by mouth as needed for pain. orphenadrine ER (NORFLEX) 100 mg tablet Take 1 tablet by mouth every 12 hours. amoxicillin (AMOXIL) 500 mg capsule TAKE 1 CAPSULE BY MOUTH THREE TIMES DAILY DIRECTED (Patient not taking: Reported on 07/29/2023) pseudoephedrine (SUDAFED) 30 mg tablet Take 1 tablet by mouth every 4 hours as needed for cold/allergy symptoms (ear pressure). (Patient not taking: Reported on 07/04/2023) azelastine 0.1% nasal spray Use 2 Sprays in each nostril two times a day. (Patient not taking: Reported on 07/04/2023) diclofenac, EC, (VOLTAREN) 75 mg EC tablet Take 1 tablet by mouth two times a day as needed (for pain). (Patient not taking: Reported on 07/04/2023) fluconazole (DIFLUCAN) 150 mg tablet Take one tablet by mouth and you can repeat another dose in 72 hours if symptoms persist (Patient not taking: Reported on 07/29/2023) fluticasone (FLONASE) 50 mcg/actuation nasal spray Use 1 Dennison in each nostril daily at bedtime. (Patient not taking: Reported on 07/04/2023) REVIEW OF SYSTEMS: As listed in HPI OBJECTIVE: PHYSICAL EXAM BP 115/74 (BP Site: Right Arm, BP Position: Sitting) Pulse 87 Temp 37.1 ?C (98.7 ?F) (Temporal) Ht 164.8 cm (5' 4.88) Wt 51.5 kg (113 lb 10.4 oz) BMI 18.98 kg/m? GENERAL APPEARANCE: Well appearing, well-hydrated, well nourished and alert HEART: Edema: No LUNGS: even and non-l (more content not included)... Normal [facility] AUTO DIFFon 07-19-2023 Baso Count 0.05 x1000 Normal 0.00-0.20 [facility] Comment on above: Performed By: #### 1 [id number], [id number], [id number] #### [facility] [address] [place] [address]8464 Service Establishment Attendant: Jose Manuel Nj MD Basos % 0.6 % Normal [facility] Comment on above: Performed By: #### 1 94373, CD:[id number], [id number] #### [facility] [address] [place] [address] 68122 Service Establishment Attendant: Jose Manuel Nj MD Eos Count 0.18 x1000 Normal 0.00-0.50 [facility] Comment on above: Performed By: #### 1 71252, [id number], [id number], [id number] #### [facility] [address] [place] [address] 79537 Service Establishment Attendant: Jose Manuel Nj MD Eosinophils/100 WBC (Bld) 2.1 % Normal [facility] Comment on above: Performed By: #### 1 60020, [id number], [id number], [id number] #### [facility] [address] [place] [address] 00740 Service Establishment Attendant: Jose Manuel Nj MD Lymph Count 2.39 x1000 Normal 1.20-4.80 [facility] Comment on above: Performed By: #### 1 43470, [id number], [id number], [id number] #### [facility] [address] [place] [address] 17103 Service Establishment Attendant: Jose Manuel Nj MD Lymphocytes/100 WBC (Bld) 28.2 % Normal [facility] Comment on above: Performed By: #### 1 46456, [id number], [id number], [id number] #### [facility] [address] [place] [address] 45073 Service Establishment Attendant: Jose Manuel Nj MD Lamb Count 0.55 x1000 Normal 0.10-1.00 [facility] Comment on above: Performed By: #### 1 20068, CD:[id number], [id number], 398626 #### [facility] [address] [place] [address] 42447 Service Establishment Attendant: Jose Manuel Nj MD Monocytes/100 WBC (Bld) 6.5 % Normal [facility] Comment on above: Performed By: #### 1 82242, CD:[id number], [id number], 068007 #### [facility] [address] [place] [address] 72058 Service Establishment Attendant: Jose Manuel Nj MD Neutrophil Count (ANC) 5.29 x1000 Normal 1.40-8.80 [facility] Comment on above: Performed By: #### 1 86436, CD:[id number], [id number], [id number] #### [facility] [address] [place] [address] 82015 Service Establishment Attendant: Jose Manuel Nj MD Neutrophils/100 WBC (Bld) 62.5 % Normal [facility] Comment on above: Performed By: #### 1 36355, CD:[id number], [id number], 390536 #### [facility] [address] [place] [address] 91583 Service Establishment Attendant: Jose Manuel Nj MD COMPMETAon 07-19-2023 Albumin [Mass/Vol] 3.9 g/dL Normal 3.4-5.0 [facility] Comment on above: Performed By: #### 1 94097, CD:[id number], [id number], [id number] ####[facility] [address] [place] [address] Medical Director: Jose Manuel Nj MD Albumin/Globulin [Mass ratio] 1.4 {ratio} Normal [facility] Comment on above: Performed By: #### 1 10975, CD:[id number], [id number], 008010 ####[facility] [address] [place] [address] Medical Director: Jose Manuel Nj MD Alk Phos 51 unit/L Normal 45-117 [facility] Comment on above: Performed By: #### 1 80540, CD:[id number], [id number], 977668 ####[facility] [address] [place] [address] Medical Director: Jose Manuel Nj MD Bilirubin [Mass/Vol] 0.40 mg/dL Normal 0.30-1.20 [facility] Comment on above: Result Comment: Use of this assay is not recommended for patients undergoing treatment with eltrombopag due to the potential for falsely elevated results. Performed By: #### 1 47778, CD:[id number], [id number], [id number] ####[facility] [address] [place] [address] Medical Director: Jose Manuel Nj MD Calcium [Mass/Vol] 9.2 mg/dL Normal 8.7-10.4 [facility] Comment on above: Performed By: #### 1 41715, CD:[id number], [id number], 564591 ####[facility] [address] [place] [id number] Medical Director: Jose Manuel Nj MD Chloride [Moles/Vol] 111 mmol/L High 98-107 [facility] Comment on above: Performed By: #### 1 09089, CD:[id number], 1385706, 438572 ####[facility] [address] [place] [address] Medical Director: Jose Manuel Nj MD CO2 [Moles/Vol] 26.0 mmol/L Normal 20.0-31.0 [facility] Comment on above: Performed By: #### 1 74049, CD:[id number], [id number], 360205 ####[facility] [address] [place] [address] Medical Director: Jose Manuel Nj MD Creatinine [Mass/Vol] 0.8 mg/dL Normal 0.5-0.8 [facility] Comment on above: Performed By: #### 1 74001, CD:[id number], [id number], 806822 ####[facility] [address] [place], [place] [id number]) [phone] Director: Jose Manuel Nj MD GFR AA >60 Normal [facility] Comment on above: Result Comment: Afri can Nauruan GFR Calc Medical judgement is necessary to interpret GFR. The calculated GFR may not accurately reflect renal status in patients >70 years, women, acutely ill hospitalized patients and patients with acute renal failure or known renal disease. The MDRD GFR formula is valid only for adults greater than 18 years of age. Note: Creatinine clearance (not GFR) should be used for drug dosing. Performed By: #### 1 05895, CD:[id number], [id number], 294696 ####[facility] [address] [place], [place] [id number]) [phone] Director: Jose Manuel Nj MD Globulin (S) [Mass/Vol] 2.8 g/dL Normal [facility] Comment on above: Performed By: #### 1 26073, CD:[id number], [id number], 989585 ####[facility] [address] [place], [place] [id number]) [phone] Director: Jose Manuel Nj MD Glomerular Filtration Rate >60 Normal [facility] Comment on above: Result Comment: Non- GFR Calc Medical judgement is necessary to interpret GFR. The calculated GFR may not accurately reflect renal status in patients >70 years, women, acutely ill hospitalized patients and patients with acute renal failure or known renal disease. The MDRD GFR formula is valid only for adults greater than 18 years of age. Note: Creatinine clearance (not GFR) should be used for drug dosing. Performed By: #### 1 62274, CD:[id number], [id number], [id number] ####[facility] [address] [place], [place] [id number]) [phone] Director: Jose Manuel Nj MD Glucose [Mass/Vol] 92 mg/dL Normal 74-106 [facility] Comment on above: Performed By: #### 1 , CD:[id number], [id number], [id number] ####[facility] [address] [place] [address] Medical Director: Jose Manuel Nj MD GOT 13 unit/L Low 15-37 [facility] Comment on above: Performed By: #### 1 , CD:[id number], [id number], [id number] ####[facility] [address] [place] [address] Medical Director: Jose Manuel Nj MD GPT 8 unit/L Low 10-49 [facility] Comment on above: Performed By: #### 1 , CD:[id number], [id number], [id number] ####[facility] [address] [place] [address] Medical Director: Jose Manuel Nj MD Osmolality [Osmolality] 279 mosm/kg Normal 275-295 [facility] Comment on above: Performed By: #### 1 , CD:[id number], [id number], [id number] ####[facility] [address] [place] [address] Medical Director: Jose Manuel Nj MD Potassium [Moles/Vol] 4.4 mmol/L Normal 3.5-5.1 [facility] Comment on above: Performed By: #### 1 , CD:[id number], [id number], [id number] ####[facility] [address] [place] [address] Medical Director: Jose Manuel Nj MD Protein [Mass/Vol] 6.7 g/dL Normal 5.7-8.2 [facility] Comment on above: Result Comment: Tota l Protein results may be increased in patients receiving dextran as a blood volume deputy attorney general Performed By: #### 1 , CD:[id number], [id number], [id number] ####[facility] [address] [place], [place] [id number]) [phone] Director: Jose Manuel Nj MD Sodium [Moles/Vol] 140 mmol/L Normal 135-145 [facility] Comment on above: Performed By: #### 1 90248, CD:[id number], [id number], [id number] ####[facility] [address] [place] [address] Medical Director: Jose Manuel Nj MD Urea nitrogen [Mass/Vol] 12 mg/dL Normal 9-23 [facility] Comment on above: Result Comment: - Ve nipuncture should occur prior to N-Acetyl Cysteine (NAC) or Metamizole (Sulpyrine) administration due to the potential for falsely depressed results. - Blood samples from some patients with monoclonal gammopathies may produce falsely elevated results Performed By: #### 1 69694, CD:[id number], [id number], [id number] ####[facility] [address] [place], [place] [id number]) [phone] Director: Jose Manuel Nj MD Urea nitrogen/Creatinine [Mass ratio] 15.0 mg/mg Normal [facility] Comment on above: Performed By: #### 1 61042, CD:[id number], [id number], [id number] ####[facility] [address] [place], [place] [id number]) [phone] Director: Jose Manuel Nj MD COVID-19 Molecular SWEDon SARS-CoV-2 (COVID-19) RNA DEEPA+probe Ql (Unsp spec) Negative Normal Negative [facility] Comment on above: Result Comment: This assay is designed to detect the RdRp target of SARS-CoV-2 using rapid molecular isothermal amplification technology. A Negative result does not preclude the possibility of COVID 19 infection since the adequacy of sample collection and/or low viral burden may result in the presence of viral nucleic acids below the analytical sensitivity of this test method. Test results should be used along with other clinical and laboratory data in making the diagnosis. This testing was performed in the [facility] laboratory located at [[facility] [address]] Performed By: #### C D:[id number] #### [facility] [address] [id number] Service Establishment Attendant: Jose Manuel Nj MD CT ANGIO CHESTon 07-19-[address] ANGIOGRAPHY OF TH E CHEST WITH INTRAVENOUS CONTRAST - PULMONARY EMBOLUS PROTOCOL WITH 3D REFORMATTED IMAGE REVIEW HISTORY:Shortness of breath. Chest pain. COMPARISON:CXR earlier the same day. TECHNIQUE: CT angiography of the chest was performed after the administration of 90 mL Omnipaque 350 mg/dL. 3-D reformatted images were submitted and reviewed. Automated exposure control and dose reduction techniques were utilized. FINDINGS: There is no filling defect within the pulmonary vasculature to suggest acute pulmonary embolus. Heart and aorta are normal in size and caliber. No pericardial or pleural effusion. No lymphadenopathy. Central tracheobronchial tree is patent. There is no pneumothorax. 2 mm subpleural nodule in the right upper lobe on image 29 of series 5 is indeterminate. Within the right lower lobe posteriorly, there is a 1.8 cm pleural-based somewhat nodular density. This is also indeterminate. Limited evaluation of the upper abdominal contents demonstrates no acute findings. Very mild degenerative changes of spine. IMPRESSION: No acute pulmonary embolus. 1.8 cm pleural-based density in the right lower lobe is indeterminate. Infectious/inflammatory etiologies are most likely. Underlying neoplasm or much less likely pulmonary infarct could have a similar appearance. Follow-up to resolution. Indeterminate 2 mm right upper lobe subpleural nodule is nonspecific but likely infectious/inflammatory in etiology. This can be followed in 12 months to document stability. Electronically signed by: Robert Abdalla MD 07/19/2023 12:46 PM EDT Technologist: SHAZIA,AL,WCL Dictated By: ROBERT ABDALLA MD Signed By: ROBERT ABDALLA MD Signed Out: 07/19/23 12:46:11 Normal [facility] SAHIL Progress Note-ED Nurseon 07-19-2023 SAHIL Progress Note-ED Nurse THE PATIENT REPORTS I HAD A BLOOD CLOT A FEW YEARS AGO. IT FEELS SIMILAR. I HAVE BACK PROBLEMS WITH MY LOW BACK. I HAD A L3- L4 RUPTURE WITH REPAIR IN 2005. I HAVE BEEN BEDRIDDEN FOR 8 DAYS AND THIS WAS ABOUT A WEEK AGO. THIS IS MY THIRD DAY WITH SHORTNESS OF BREATH. I HAVE A PAIN IN MY LEFT RIBS. THE PATIENT REPORTS SYSPNEA WITH EXERTION FOR THREE DAYS. SHE HAS A HISTORY OF SMOKING. SHE DENIES CHEST PAIN OR DIZZINESS. TO MAIN CT VIA CART. THE PATIENT HAS REPORTED A DECREASE IN HER PAIN. 1405- THE PATIENT'S IV WAS DISCONTINUED. SHE DENIES CHEST PAIN OR DIZZINESS, BUT HAS REPORTED EXERTIONAL SHORTNESS OF BREATH. THE PATIENT VERBALIZES AN UNDERSTANDING OF DISCHARGE INSTRUCTIONS AND FOLLLOW UP. THE PATIENT IS IN POSSESSION OF PRESCRIPTIONS. THE PATIENT VERBALIZES TEACH BACK REGARDING THE WORSENING OF SYMPTOMS AND WHEN TO RETURN. Normal [facility] ED Adult Data - Texton 07-18 ED Adult Data - Text ED Adult Data Enter ed On: 07/19/2023 9:09 EDT Performed On: 07/19/2023 9:09 EDT by Casandra Villasenor RN Arrival Information Chief Complaint Onset : 07/19/2023 09:07 EDT Information Given by : Patient Referral Source ED : Home [facility] Mode of Arrival : Car / Walk-In Airway : Normal Breathing : Normal Circulation : Normal Casandra Villasenor RN - 07/19/2023 9:09 EDT Screening-General Meds Triage : NA Accept Blood Products if Necessary : Yes Immunizations Current : Unknown Last Tetanus : Unknown Currently or : Not Applicable Casandra Villasenor RN - 07/19/2023 9:09 EDT Depression Screening Patient able to verbalize? : Yes Feeling Down, Depressed, Hopeless : Not at all Little Interest - Pleasure in Activities : Not at all Initial Depression Screen Score : 0 Depression Screening Score 0 : No IP Pt being evaluated or treated for BH conditions : No Casandra Villasenor RN - 07/19/2023 9:09 EDT Screening-Safety Abuse/Violence Concerns? : Patient denies Does the patient have a medically restricted extremity? : No Casandra Villasenor RN - 07/19/2023 9:09 EDT Problem List Problem List obtained from : Jessica Villasenor RN Casandra - 07/19/2023 9:09 EDT (As Of: 07/19/2023 09:09:50 EDT) Problems(Active) Pulmonary embolus RESOLVED (SNOMED CT :90826893 ) Name of Problem: Pulmonary embolus RESOLVED ; Recorder: Katiana Love RN; Confirmation: Confirmed ; Classification: Medical ; Code: 63846568 ; Contributor System: Framed DataChart ; Last Updated: 07/02/2023 10:13 EDT ; Life Cycle Date: 07/02/2023 ; Life Cycle Status: Active ; Vocabulary: SNOMED CT Diagnoses(Active) Chest pain with deep breathing Date: 07/19/2023 ; Diagnosis Type: Reason For Visit ; Confirmation: Confirmed ; Clinical Dx: Chest pain with deep breathing ; Classification: Medical ; Clinical Service: Non-Specified ; Code: PNED ; Probability: 0 ; Diagnosis Code: [id number] Procedure History ED Devices Present on Arrival To ED : None Urinary Catheter Present on Admit to ED : No Hamilton DEBRA Casandra - 07/19/2023 9:09 EDT - Procedure History (As Of: 07/19/2023 09:09:50 EDT) Anesthesia Minutes: 0 ; Procedure Name: BACK SURGERY ; Procedure Minutes: 0 ; Comments: 07/02/2023 10:13 EDT - Katiana Love RN 2006 Social History Does pt have any alcohol,drugs or tobacco : No Do you consume Alcohol : No Social History obtained from : Patient Hamilton RICHARDSON Casandra - 07/19/2023 9:09 EDT Social History (As Of: 07/19/2023 09:09:50 EDT) Alcohol: Denies Alcohol Use (Last Updated: 06/21/2023 11:00:10 EDT by Karla Finney RN ) Tobacco: 10 or more cigarettes (1/2 pack or more)/day in last 30 days Tobacco Use:. Cigarettes (Last Updated: 06/21/2023 11:00:22 EDT by Karla Finney RN) Substance Abuse: Current, Marijuana (Last Updated: 06/21/2023 11:00:33 EDT by Reg RN, Karla) Infection Screening Travel outside of [place] within past 21 days? : No Positive COVID test in the last 10 days? : No Exposure to and/or close contact with a person who has a laboratory-confirmed COVID test within the last 48 hours. : No Coronavirus New Symptoms w/o Cause : No Hamilton RICHARDSON, Casandra - 07/19/2023 9:09 EDT Normal [facility] ED Discharge Educationon ED Discharge Education Orthopedics and Rheumatology Back Pain: Care Instructions Your Care Instructions Back pain has many possible causes. It is often related to problems with muscles and ligaments of the back. It may also be related to problems with the nerves, discs, or bones of the back. Moving, lifting, standing, sitting, or sleeping in an awkward way can strain the back. Sometimes you don't notice the injury until later. Arthritis is another common cause of back pain. Although it may hurt a lot, back pain usually improves on its own within several weeks. Most people recover in 12 weeks or less. Using good home treatment and being careful not to stress your back can help you feel better sooner. Follow-up care is a matos part of your treatment and safety. Be sure to make and go to all appointments, and call your doctor if you are having problems. It's also a good idea to know your test results and keep a list of the medicines you take. How can you care for yourself at home? ? Sit or lie in positions that are most comfortable and reduce your pain. Try one of these positions when you lie down: ? Lie on your back with your knees bent and supported by large pillows. ? Lie on the floor with your legs on the seat of a sofa or chair. ? Lie on your side with your knees and hips bent and a pillow between your legs. ? Lie on your stomach if it does not make pain worse. ? Do not sit up in bed, and avoid soft couches and twisted positions. Bed rest can help relieve pain at first, but it delays healing. Avoid bed rest after the first day of back pain. ? Change positions every 30 minutes. If you must sit for long periods of time, take breaks from sitting. Get up and walk around, or lie in a comfortable position. ? Try using a heating pad on a low or medium setting for 15 to 20 minutes every 2 or 3 hours. Try a warm shower in place of one session with the heating pad. ? You can also try an ice pack for 10 to 15 minutes every 2 to 3 hours. Put a thin cloth between the ice pack and your skin. ? Take pain medicines exactly as directed. ? If the doctor gave you a prescription medicine for pain, take it as prescribed. ? If you are not taking a prescription pain medicine, ask your doctor if you can take an chpy-sqf-krgjufe medicine. ? Take short walks several times a day. You can start with 5 to 10 minutes, 3 or 4 times a day, and work up to longer walks. Walk on level surfaces and avoid hills and stairs until your back is better. ? Return to work and other activities as soon as you can. Continued rest without activity is usually not good for your back. ? To prevent future back pain, do exercises to stretch and strengthen your back and stomach. Learn how to use good posture, safe lifting techniques, and proper body mechanics. When should you call for help? Call your doctor now or seek immediate medical care if: ? You have new or worsening numbness in your legs. ? You have new or worsening weakness in your legs. (This could make it hard to stand up.) ? You lose control of your bladder or bowels. Watch closely for changes in your health, and be sure to contact your doctor if: ? You have a fever, lose weight, or don't feel well. ? You do not get better as expected. Where can you learn more? Go to https://www.[employer] t/patientEd Enter I594 in the search box to learn more about Back Pain: Care Instructions. Current as of: June 14, 2021 Content Version: 13.3 ? [employer]. Care instructions adapted under license by your healthcare professional. If you have questions about a medical condition or this instruction, always ask your healthcare professional. [employer] disclaims any warranty or liability for your use of this information. Normal [facility] ED Emergency Severity Index Adult-Texton 07-19-2023 ED Emergency Severity Index Adult-Text DEMETRIO - Adult Entered On: 07/19/2023 9:06 EDT Performed On: 07/19/2023 9:05 EDT by Casandra Villasenor RN DCP GENERIC CODE Visit Reason : chest pain with breathing Tracking Triage Date/Time : 07/19/2023 09:05 EDT Tracking Reg Status : Requested Tracking Acuity : 3V-Urgent Tracking Group : [facility] Tracking Casandra Villasenor RN - 07/19/2023 9:05 EDT Normal [facility] ED Nrsing Adlt Triage Sep Sc rning - Texton 07-19-2023 ED Nrsing Adlt Triage Sep Scrning - Text ED Nursing Adult Triage Sepsis Screening Tool Entered On: 07/19/2023 9:09 EDT Performed On: 07/19/2023 9:08 EDT by Casandra Villasenor RN Adult Sepsis Screening Sepsis Infection Screening ED : No Casandra Villasenor RN - 07/19/2023 9:08 EDT Normal [facility] ED Patient Summaryon [address] [facility] Emergency Department Discharge Instructions [address] [place] [address] (Patient Copy) Name: LM MONACO : 1975 Allergies: Flagyl Diagnosis: 1:Thoracic back pain; 2:Nodule of right lung Visit Date: 07/19/2023 08:59:52 Current Date Time: 07/19/2023 14:28:04 Address: [address] [facility] [address] Primary Care Provider: Name: SHASHA GIBBS MD Emergency Department Care Providers: Primary Physician: REX QUEZADA MD Thank you for choosing [facility] for your emergency care. You are very important to us. Our goal is to demonstrate our high quality medical care, and provide you with a very good patient experience. You may receive a survey about our service. Please take the time to complete the survey and return it so we can continue to enhance our service. Thank you again for allowing the [facility] Emergency Department to care for your medical needs. If you have questions about your care or follow up information please contact us at [phone]. Follow-Up Instructions LM MONACO has been given these follow-up instructions: With: Address: When: DAVID PEREZ, Pulmonary Medicine [address], [address] [place] [phone] Business (1) Within 3 to 5 days With: Address: When: SHASHA GIBBS, Family Practice [address], [address] [place], [place] [id number] Business (1) Within 3 to 5 days Patient Education Materials LM MONACO has been given the following patient education materials: Back Pain: Care Instructions Your Care Instructions Back pain has many possible causes. It is often related to problems with muscles and ligaments of the back. It may also be related to problems with the nerves, discs, or bones of the back. Moving, lifting, standing, sitting, or sleeping in an awkward way can strain the back. Sometimes you don't notice the injury until later. Arthritis is another common cause of back pain. Although it may hurt a lot, back pain usually improves on its own within several weeks. Most people recover in 12 weeks or less. Using good home treatment and being careful not to stress your back can help you feel better sooner. Follow-up care is a matos part of your treatment and safety. Be sure to make and go to all appointments, and call your doctor if you are having problems. It's also a good idea to know your test results and keep a list of the medicines you take. How can you care for yourself at home? ? Sit or lie in positions that are most comfortable and reduce your pain. Try one of these positions when you lie down: ? Lie on your back with your knees bent and supported by large pillows. ? Lie on the floor with your legs on the seat of a sofa or chair. ? Lie on your side with your knees and hips bent and a pillow between your legs. ? Lie on your stomach if it does not make pain worse. ? Do not sit up in bed, and avoid soft couches and twisted positions. Bed rest can help relieve pain at first, but it delays healing. Avoid bed rest after the first day of back pain. ? Change positions every 30 minutes. If you must sit for long periods of time, take breaks from sitting. Get up and walk around, or lie in a comfortable position. ? Try using a heating pad on a low or medium setting for 15 to 20 minutes every 2 or 3 hours. Try a warm shower in place of one session with the heating pad. ? You can also try an ice pack for 10 to 15 minutes every 2 to 3 hours. Put a thin cloth between the ice pack and your skin. ? Take pain medicines exactly as directed. ? If the doctor gave you a prescription medicine for pain, take it as prescribed. ? If you are not taking a prescription pain medicine, ask your doctor if you can take an slby-zrz-tofjwhk medicine. ? Take short walks several times a day. You can start with 5 to 10 minutes, 3 or 4 times a day, and work up to longer walks. Walk on level surfaces and avoid hills and stairs until your back is better. ? Return to work and other activities as soon as you can. Continued rest without activity is usually not good for your back. ? To prevent future back pain, do exercises to stretch and strengthen your back and stomach. Learn how to use good posture, safe lifting techniques, and proper body mechanics. When should you call for help? Call your doctor now or seek immediate medical care if: ? You have new or worsening numbness in your legs. ? You have new or worsening weakness in your legs. (This could make it hard to stand up.) ? You lose control of your bladder or bowels. Watch closely for changes in your health, and be sure to contact your doctor if: ? You have a fever, lose weight, (more content not included)... Normal [facility] ED Physician Reporton 2023 ED Physician Report LM MONACO :1975 Registration Date:07/19/2023 Basic Information Time Seen: 9:42 AM Arrival Mode: Walk-In History Source: Patient _ _ History limitation: None History of Present Illness Patient is a 48-year-old female presents with left-sided pleuritic back pain that started 3 days ago. Patient states for last 8 days she has been dealing with left-sided sciatica down the left leg. She states she is noticed upper thoracic paraspinal back pain and posterior rib discomfort for 3 days. Worse when she takes a deep breath. Also tender to palpation. No direct trauma. She has had a chronic cough no hemoptysis no dyspnea although does hurt to breathe. No anterior chest discomfort. Patient presents for further evaluation. Patient states that in 2005 she had spine surgery and 4 days later was complicated by pulmonary embolism. No recurrent clots. No current anticoagulation. No recent travel or immobility. No leg pain or swelling. Review of Systems Constitutional symptoms: Negative except as documented in HPI. Skin symptoms: Negative except as documented in HPI. Eye symptoms: Negative except as documented in HPI. ENMT symptoms: Negative except as documented in HPI. Respiratory symptoms: Negative except as documented in HPI. Cardiovascular symptoms: Negative except as documented in HPI. Gastrointestinal symptoms: Negative except as documented in HPI. Genitourinary symptoms: Negative except as documented in HPI. Musculoskeletal symptoms: Negative except as documented in HPI. Psychiatric symptoms: Negative except as documented in HPI. Neurologic symptoms: Negative except as documented in HPI. Additional review of systems information: All other systems reviewed and otherwise negative, Systems negative except as stated in the H&P. Physical Exam Vitals & Measurements Initial: T: 36.6 ?C (Oral) HR: 73 (Peripheral) BP: 114/72 RR: 18 SpO2: 95% O2 Therapy: Room air WT: 51.8 kg (Dosing) Latest: T: 36.6 ?C (Oral) HR: 60 (Peripheral) BP: 111/70 RR: 16 SpO2: 97% O2 Therapy: Room air Vital Signs: Per nurse's notes. General: Alert, no acute distress Skin: Warm, dry, no rash. Head: Normocephalic, atraumatic. Neck: Supple, trachea midline. Eye: Pupils are equal, round and reactive to light, extraocular movements are intact, normal conjunctiva. Ears, nose, mouth and throat: Oral mucosa moist. Cardiovascular: Regular rate and rhythm, no murmur, arterial pulses equal and symmetric in all extremities. Respiratory: Lungs are clear to auscultation, respirations are non-labored, breath sounds are equal. Chest wall: No tenderness, no deformity. Gastrointestinal: Soft, nontender, non distended, normal bowel sounds. Back: No tenderness in the midline cervical thoracic or lumbar spine. Tenderness in the left posterior ribs and paraspinal region, no shingles rash noted, no crepitus Musculoskeletal: Normal range of motion, normal strength, no tenderness, no swelling, no deformity Lymphatics: No lymphadenopathy. Psychiatric: Cooperative, appropriate mood & affect. Neurological: Alert and oriented to person, place, time, and situation, no focal neurological deficit observed. normal sensory exam, normal observed speech, motor strength: proximal RUE 5/5, distal RUE 5/5, proximal LUE 5/5, distal LUE 5/5, proximal RLE 5/5, distal RLE 5/5, proximal LLE 5/5, distal LLE 5/5 Medical Decision Making [facility] Data Pertinent history elements: Patient is a 48-year-old presents with presents with pleuritic back pain Differential diagnosis: Pneumothorax, pneumonia, COVID-19, pulmonary embolism Documents reviewed: _ _ _ _External record review includes outside pharmacy record review Decision rules/scores evaluated: Modified Wells criteria is 4.5, this puts the patient at intermediate risk, CT angio is obtained. MDM Testing Review Lab interpretation: Laboratory studies are obtained independently reviewed by myself Radiology interpretation: Chest x-ray per my depend interpretation shows no large pneumothorax no large infiltrative process final read per the radiologist [facility] Treatment ED course: Patient receives morphine Zofran for acute pain. EKG shows a sinus rhythm without dysrhythmia or ischemia. Laboratory studies show normal hemogram and chemistries. 2 high-sensitivity troponins are negative. Chest radiograph shows no pneumothorax no displaced rib fracture normal cardiovascular silhouette, Wells criteria is 4.5 she is moderate risk prior history of PE CT angio was obtained as the patient is not low risk this is negative for PE opacities and nodules are noted on the right-hand side, I spoke with the patient about this she states she has known about these. Patient will follow-up in the outpatient setting. She is given pulmonology, analgesia for home. Patient is comfortable plan of care. She is reassured with the negative angio. [facility] Disposition Disposition: Discharge Discussed with: _ _ _Pati (more content not included)... Normal [facility] ED Triage Adult-Texton 07-18 ED Triage Adult-Text ED Triage Entered O n: 07/19/2023 9:08 EDT Performed On: 07/19/2023 9:07 EDT by Casandra Villasenor RN Triage (As Of: 07/19/2023 09:08:55 EDT) Problems(Active) Pulmonary embolus RESOLVED (SNOMED CT :[id number] ) Name of Problem: Pulmonary embolus RESOLVED ; Recorder: Katiana Love RN; Confirmation: Confirmed ; Classification: Medical ; Code: [id number] ; Contributor System: [employer] ; Last Updated: 07/02/2023 10:13 EDT ; Life Cycle Date: 07/02/2023 ; Life Cycle Status: Active ; Vocabulary: SNOMED CT Diagnoses(Active) Chest pain with deep breathing Date: 07/19/2023 ; Diagnosis Type: Reason For Visit ; Confirmation: Confirmed ; Clinical Dx: Chest pain with deep breathing ; Classification: Medical ; Clinical Service: Non-Specified ; Code: PNED ; Probability: 0 ; Diagnosis Code: [id number] (As Of: 07/19/2023 09:08:55 EDT) Allergies (Active) Flagyl Estimated Onset Date: Unspecified ; Created By: Karla Finney RN; Reaction Status: Active ; Category: Drug ; Substance: Flagyl ; Type: Allergy ; Updated By: Karla Finney RN; Reviewed Date: 07/02/2023 8:41 EDT Vitals/Ht/Wt Temperature Oral : 36.6 degC Pulse Rate : 73 bpm Respiratory Rate : 18 br/min Systolic Blood Pressure : 114 mmHg Diastolic Blood Pressure : 72 mmHg SpO2 : 95 % Oxygen Therapy : Room air Pain Symptoms : Yes Numeric Pain Scale : 5 = Moderate pain VAS Pain Scale Age : VAS (8 yrs & older) Height/Length Dosing : 162.56 cm(Converted to: 5.33 ft, 64.00 in) Weight Measured Type of Scale : Standing Scale Weight Dosing : 51.8 kg(Converted to: 1,827.191 oz, 114.199 lb) Body Mass Index Dosing : 20 Casandra Villasenor RN - 07/19/2023 9:07 EDT Normal [facility] 07-19-2023 DIFF? No Normal [facility] Comment on above: Performed By: #### 1 [id number], [id number], [id number] #### [facility] [address] [place] [address] Service Establishment Attendant: Jose Manuel Nj MD Erythrocyte distribution width (RBC) [Ratio] 13.5 % Normal 11.5-14.5 [facility] Comment on above: Performed By: #### 1 , [id number], [id number], [id number] #### [facility] [address] [place] [address] 39616 Service Establishment Attendant: Jose Manuel Nj MD Hematocrit (Bld) [Volume fraction] 43.5 % Normal 36.0-46.0 [facility] Comment on above: Performed By: #### 1 , [id number], [id number], [id number] #### [facility] [address] [place] [address] 69039 Service Establishment Attendant: Jose Manuel Nj MD Hemoglobin (Bld) [Mass/Vol] 15.3 g/dL Normal 12.0-16.0 [facility] Comment on above: Performed By: #### 1 , [id number], [id number] #### [facility] [address] [place] [address] 45673 Service Establishment Attendant: Jose Manuel Nj MD Instr WBC 8.5 Normal [facility] Comment on above: Performed By: #### 1 , CD:[id number], [id number] #### [facility] [address] [place] [address]19 Service Establishment Attendant: Jose Manuel Nj MD MCH (RBC) [Entitic mass] 32.4 pg Normal 27.0-34.0 [facility] Comment on above: Performed By: #### 1 , [id number], [id number], [id number] #### [facility] [address] [place] [address] 79327 Service Establishment Attendant: Jose Manuel Nj MD MCHC (RBC) [Mass/Vol] 35.1 g/dL Normal 32.0-37.0 [facility] Comment on above: Performed By: #### 1 17441, CD:[id number], [id number], [id number] #### [facility] [address] [place] [address] Service Establishment Attendant: Jose Manuel Nj MD MCV (RBC) [Entitic vol] 92.4 fL Normal 80.0-100.0 [facility] Comment on above: Performed By: #### 1 74687, CD:[id number], [id number], [id number] #### [facility] [address] [place] [address] 99161 Service Establishment Attendant: Jose Manuel Nj MD MDW 18.35 Normal 13.98-20.00 [facility] Comment on above: Result Comment: MDW Interpretation: - For adults age 18-89 in ED, MDW >20.0 may be associated with a higher risk of Sepsis during the first 12 hours of hospital admission. - The predictive value of MDW for identifying Sepsis in patients with hematological abnormalities has not been established. - Interpret with caution when immature granulocytes, variant lymphs, or blast cells are noted on the differential. - Confirm patient age is within intended use population (18-89 years) for MDW. - For ED adults suspected of Sepsis, MDW less than or equal to 20.0 does not rule out Sepsis or the risk of Sepsis. Performed By: #### 1 82553, CD:[id number], [id number], [id number] #### [facility] [address] [place] [address] 58055 Service Establishment Attendant: Jose Manuel Nj MD Nucleated RBC 0 /100WBC Normal [facility] Comment on above: Performed By: #### 1 00050, CD:[id number], [id number], [id number] #### [facility] [address] [place] [address] Service Establishment Attendant: Jose Manuel Nj MD Platelet 307 x10 Normal 150-450 [facility] Comment on above: Performed By: #### 1 94396, CD:[id number], [id number], [id number] #### [facility] [address] [place] [address] 93542 Service Establishment Attendant: Jose Manuel Nj MD Platelet mean volume (Bld) [Entitic vol] 7.9 fL Normal 7.4-10.4 [facility] Comment on above: Performed By: #### 1 45037, CD:[id number], [id number], [id number] #### [facility] [address] [place] [address] 08691 Service Establishment Attendant: Jose Manuel Nj MD RBC 4.71 x10 Normal 4.20-5.40 [facility] Comment on above: Result Comment: Note : RBC morphology is normal unless otherwise stated. Evaluation performed only if differential is requested. Performed By: #### 1 90372, CD:[id number], [id number], [id number] #### [facility] [address] [place] [address] 72255 Service Establishment Attendant: Jose Manuel Nj MD WBC 8.5 x10 Normal 4.5-11.0 [facility] Comment on above: Performed By: #### 1 58801, CD:[id number], [id number], [id number] #### [facility] [address] [place] [address] 61860 Service Establishment Attendant: Jose Manuel Nj MD MorPHINE 2MG/1ML INJon 07-18 MorPHINE 2MG/1ML INJ PRN Response Entere d On: 07/19/2023 11:21 EDT Performed On: 07/19/2023 11:21 EDT by Mary Caputo RN Intervention Information: morphine Performed by Mary Caputo RN on 07/19/2023 10:22:00 EDT morphine,4mg IV Push,Right Arm PRN Medication Response PRN Medication used for : Pain PRN Medication Effectiveness : Yes PRN Response Pain Scales : Numeric (8yrs & older) Numeric Pain Scale Age : Numeric (8yrs & older) Actual time of reassessment : No (not needed time is correct) Mary Caputo RN - 07/19/2023 11:21 EDT Numeric Pain Scale Numeric Pain Scale : 2 = Mild Pain Numeric Pain Score : 2 Mary Caputo RN - 07/19/2023 11:21 EDT Normal [facility] Comment on above: Order Comment: O2 sa t prior to administrationpotential SOUND ALIKE/LOOK ALIKE-verify med;potential SOUND ALIKE/LOOK ALIKE-verify med; Pharmacy Clinical Interventi ons-Texton 07-19-2023 Pharmacy Clinical Interventions-Text Pharmacy Clinical Interventions Entered On: 07/19/2023 11:57 EDT Performed On: 07/19/2023 11:56 EDT by Moriah Turk CPhT Interventions Intervention Type Pharmacy : Medication history Pharmacy Order Initiated By : Toys Inspector Clinical Importance Pharmacy : Potentially major Prescriber Response Pharmacy : Corrected prior to contact Patient Clinical Outcome Pharmacy : Avoided potential risk Pharmacist Intervention Time : 15 Moriah Turk CPhT - 07/19/2023 11:56 EDT Med History Med History Grid Location : ed Medications reviewed with : pt Additional comments : only uses ibuprofen at home right now. finished the steroid a few days ago Allergies updated : flagyl Patient pharmacy : Moriah Jean Baptiste CPhT - 07/19/2023 11:56 EDT Normal [facility] RAP FLU A AND Bon 07-19-2023 Rapid Influenza A Antigen Test Negative Normal [facility] Comment on above: Result Comment: A po sitive Rapid Influenza A Antigen Test indicates the presence of Influenza A. This is a screening test only and should be correlated with the patient's clinical symptoms. Performed By: #### 5 [id number] ####[facility] [id number] [place] [id number] Medical Director: Jose Manuel Nj MD Rapid Influenza B Antigen Test Negative Normal [facility] Comment on above: Result Comment: A po sitive Rapid Influenza B Antigen Test indicates the presence of Influenza B. This is a screening test only and should be correlated with the patients's clinical symptoms. Performed By: #### 5 [id number] ####[facility] [id number] [place] [id number] Medical Director: Jose Manuel Nj MD RFAB INT QC Present Normal [facility] Comment on above: Performed By: #### 5 [id number] ####[facility] [id number] [place] [address] Medical Director: Jose Manuel Nj MD TROPONIN HS 0HRon 07-19-2023 Troponin HS 0 Hr <3 Low 3-34 [facility] Comment on above: Result Comment: Spec imens from some individuals with pathologically high gamma globulin levels may demonstrate depressed troponin values Performed By: #### 1 37742, CD:[id number], [id number], [id number] #### [facility] [address] [place] [id number] Service Establishment Attendant: Jose Manuel Nj MD TROPONIN HS 2HRon 07-19-2023 Delta Troponin 2 Hr 0 pg/mL Normal 0-14 [facility] Comment on above: Result Comment: The term acute myocardial infarction should be used when there is acute myocardial injury with clinical evidence of acute myocardial ischemia and the rise or fall of serial Troponin HS values (delta troponin) greater than or equal to 15 pg/mL with at least one Troponin HS value above the 99th percentile reference range Performed By: #### C [id number] ####[facility] [id number] [place] [id number] Medical Director: Jose Manuel Nj MD Troponin HS 2 Hr <3 Low 3-34 [facility] Comment on above: Result Comment: Spec imens from some individuals with pathologically high gamma globulin levels may demonstrate depressed troponin values Performed By: #### C [id number] ####[facility] [address] [place] [id number] Medical Director: Jose Manuel Nj MD XR CHEST PORTABLEon 07-19-19 24 XR CHEST PORTABLE Examination: Chest x -ray Clinical:Shortness of breath, chest pain Technique:One view, AP upright Comparison:None Support devices:None Cardiomediastinal: The heart size is normal. Lungs:The lungs are clear. Pneumothorax:None. Osseous:No acute osseous pathology. Mild upper thoracic rotary dextroscoliosis. Impression: No acute pulmonary disease. Electronically signed by: Corie Rowley MD 07/19/2023 10:39 AM EDT Technologist: ROLLY Dictated By: CORIE ROWLEY MD Signed By: CORIE ROWLEY MD Signed Out: 07/19/23 10:39:23 Normal [facility] ED Physician Reporton 2023 ED Physician Report LM MONACO :1975 Registration Date:07/02/2023 Basic Information Time Seen: VÍCTOR WILLIS PA-C / 07/02/2023 10:14 Arrival Mode: Walk-In _ History Source: Patient _ _ _ History limitation: None _ History of Present Illness This is a 48 y/o female, who presents to the emergency department for evaluation of left low back pain, onset 1.5 weeks ago. The patient reports a history of kyphoplasty in 2005 after a compression fracture at L3/L4 she sustained from a sledding injury. The patient reports gradual onset of left low back pain that has been progressively worsening over the past 1.5 weeks. She states that just prior to her back pain starting she started a new role at her job. 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 She states that it is a lot of repetitive movement bending over the laundry hamper to lift multiple babs sized sheets and linens. She suspects this is the inciting event for her recent back pain. She does endorse radicular pain down into the left buttock and down the LLE. She denies subjective paresthesia or focal weakness. Denies urinary retention. Denies bowel or bladder incontinence. Denies saddle anesthesia. Denies fever, chills. Denies N/V or abdominal pain. Of note, she states that she was seen in our emergency department about 10 days ago for the same complaint. She was Rx prescription strength ibuprofen, tramadol, and muscle relaxant. Review of Systems Constitutional symptoms: Negative except as documented in HPI. Skin symptoms: Negative except as documented in HPI. Eye symptoms: Negative except as documented in HPI. ENMT symptoms: Negative except as documented in HPI. Respiratory symptoms: Negative except as documented in HPI. Cardiovascular symptoms: Negative except as documented in HPI. Gastrointestinal symptoms: Negative except as documented in HPI. Genitourinary symptoms: Negative except as documented in HPI. Musculoskeletal symptoms: Negative except as documented in HPI. Psychiatric symptoms: Negative except as documented in HPI. Endocrine symptoms: Negative except as documented in HPI. Hematologic/Lymphatic symptoms: Negative except as documented in HPI. Allergy/Immunologic symptoms: Negative except as documented in HPI. Neurologic symptoms: Negative except as documented in HPI. Additional review of systems information: All other systems reviewed and otherwise negative, Systems negative except as stated in the H&P. Physical Exam Vitals & Measurements Initial: T: 36.8 ?C (Oral) HR: 65 (Peripheral) BP: 101/ 55 RR: 16 SpO2: 100% O2 Therapy: Room air WT: 53.5 kg (Dosing) Latest: HR: 68 (Peripheral) BP: 95/ 59 RR: 16 SpO2: 96% O2 Therapy: Room air Vital Signs: Per nurse's notes. General: Alert Skin: Warm, dry, no rash. Head: Normocephalic, atraumatic. Neck: Supple, trachea midline. Eye: Pupils are equal, round and reactive to light, extraocular movements are intact, normal conjunctiva. Ears, nose, mouth and throat: Tympanic membranes clear, oral mucosa moist. Cardiovascular: Regular rate and rhythm, no murmur. Respiratory: Lungs are clear to auscultation, respirations are non-labored, breath sounds are equal. Chest wall: No tenderness, no deformity. Back: Diffuse tenderness across the lumbar spine - more pronounced on the left paralumbar region, normal range of motion, normal alignment. Musculoskeletal: Normal ROM, normal strength, no tenderness, no swelling, no deformity. Dorsiflexion and plantarflexion intact. Gastrointestinal: Soft, nontender, non distended, normal bowel sounds. Lymphatics: No lymphadenopathy. Psychiatric: Cooperative, appropriate mood & affect. Neurological: Alert and oriented to person, place, time, and situation, no focal neurological deficit observed. Strengths 5/5, both proximally and distally, in the lower extremities bilaterally. No sensory deficits to light touch. DTR?s are 2+ and equal bilaterally at patella. Medical Decision Making 48 y/o female presents for left low back pain. Onset 1.5 weeks ago after she started a new responsibility at her job. States that is a supervisor front at a hotel however she now has the added responsibility of doing the laundry which has added a lot of repetitive movement bending over the laundry hamper to lift multiple babs sized sheets and linens. No back red flag signs or symptoms. Potential DDx include but not limited to back pain, back strain, disc herniation, sciatica, spinal stenosis, chronic back pain, degenerative disc disease. Vital signs stable. On examination, no neuro focal deficits. Diffuse tenderness across the lumbar spine with most pronounced tenderness over the left paralumbar region. Motor and sensation intact. Patient able to ambulate without difficulties. No evidence of foot drop. Per radiology interpretat (more content not included)... Normal [facility] CNOVon 07-04-2023 CNOV Office Visit ([facility] ) ----- LM MONACO ([id number]) 1975 F Date Time Provider Department 07/04/23 9:35 AM WENDY HEATON [facility] During your visit today, we recorded the following information about you: Temperature Pulse Respiration Blood pressure 97.7 degrees 67/minute 16/minute 110/65 Weight 53.5 kg Wendy Heaton PA-C 07/04/2023 9:52 AM Signed SCIATICA: Your exam shows you have sciatica, a condition most often seen in patients with disc disease of the lower back. Sciatica causes pain to radiate from the lower back or buttock area down the leg. It results from pressure on nerve roots coming out of the spine when a disc deteriorates and pushes to one side. Often there is a history of back problems. In most cases sciatica improves greatly with conservative treatment. Most patients with it are completely better after 2-4 weeks of bed rest and other supportive care. Bed rest reduces the disc pressure greatly; sitting is the worst position since the pressure on the disc is over 5 times greater than it is while lying down. You should avoid bending, lifting, and all other activities which make the problem worse. After the pain improves, you may continue with normal activity, taking brief periods for bed rest throughout the day until you are back to normal. Aspirin, ibuprofen, or other anti-inflammatory drugs are often used to help control pain. Muscle relaxants may help by relieving spasm and providing mild sedation. Cold or heat therapy and massage may also give significant relief. Spinal manipulation is not recommended because it can increase the degree of disc protrusion. Surgery is reserved for patients that do not improve with conservative treatment, or who have signs of severe nerve root pressure. You should see your doctor for follow up care as recommended. A program for back injury rehabilitation with stretching and strengthening exercises is an important part of management. Please call your doctor, a back specialist, or the emergency room right away if you notice increased pain, weakness, or numbness in your legs, or if you have any difficulty with bladder or bowel control. Wendy Heaton PA-C 07/04/2023 9:57 AM Signed This note was created using [email or web address]. Subjective Lm Monaco is a 48 year old female who presents with low back pain. This has been about a week. She had surgery in 2005 to her back and has flares intermittently. No new fall or trauma but admits to having frequent intercourse. The pain starts in the left low back and radiates down her leg. No red flag symptoms such as numbness,weakness, incontinence, fever. She is currently on a muscle relaxer and ibuprofen which does not help much. She is requesting a work excuse. Review of Systems Constitutional: Negative for chills and fever. Gastrointestinal: Negative for abdominal pain, diarrhea, nausea and vomiting. Genitourinary: Negative for decreased urine volume and difficulty urinating. Musculoskeletal: Positive for back pain. Back pain radiating down left leg Skin: Negative for rash. Neurological: Negative for weakness, light-headedness, numbness and headaches. Objective BP 110/65 (BP Site: Right Arm, BP Position: Sitting, BP Cuff Size: Regular Adult) Pulse 67 Temp 36.5 ?C (97.7 ?F) (Temporal) Resp 16 Wt 53.5 kg (118 lb) BMI 19.85 kg/m? Physical Exam Vitals and nursing note reviewed. Constitutional: General: She is in acute distress (mildly from pain). Appearance: Normal appearance. She is not toxic-appearing. HENT: Head: Normocephalic and atraumatic. Nose: Nose normal. Mouth/Throat: Mouth: Mucous membranes are moist. Cardiovascular: Rate and Rhythm: Normal rate and regular rhythm. Pulmonary: Effort: Pulmonary effort is normal. No respiratory distress. Breath sounds: No wheezing. Abdominal: Palpations: Abdomen is soft. Tenderness: There is no abdominal tenderness. There is no guarding. Musculoskeletal: Cervical back: Normal range of motion. No rigidity. Comments: Patient with tenderness to left paraspinal lumbar muscles, SI region radiating down left leg. No midline tenderness. No pain in her knee, hip or ankle. Able to change positions and ambulate however slowly from pain. Sensation intact. No sign of saddle anesthesia. Pedal pulses intact Skin: Findings: No erythema or rash. Neurological: Mental Status: She is alert. Assessment and Plan 1. Chronic left-sided low back pain with left-sided sciatica - ICD9: 724.2, 724.3, 338.29, ICD10: M54.42, G89.29 - continue motrin and muscle relaxer as previously prescribed - medrol dose pack Rx - ice ad heat alternating - gentle stretching and massage and waling - follow with Spine - work excuse given - ER precautions given and discussed - [facility] - METHYLPREDNISOLONE 4 MG TABLETS IN (more content not included)... Normal [facility] APAP 325MG/OXYCODONE 5MG TAB on 07-02-2023 APAP 325MG/OXYCODONE 5MG TAB PRN Response Entered On: 07/02/2023 13:58 EDT Performed On: 07/02/2023 11:55 EDT by Cinthia Hilario RN Intervention Information: acetaminophen-oxycodone Performed by Katiana oLve RN on 07/02/2023 10:55:00 EDT acetaminophen-oxycodone,1 tabs ORAL PRN Medication Response PRN Medication used for : Pain PRN Medication Effectiveness : Yes PRN Response Pain Scales : Numeric (8yrs & older) Numeric Pain Scale Age : Numeric (8yrs & older) Actual time of reassessment : No (not needed time is correct) Cinthia Hilario RN - 07/02/2023 13:57 EDT Numeric Pain Scale Numeric Pain Scale : 5 = Moderate pain Numeric Pain Score : 5 Cinthia Hilario RN - 07/02/2023 13:57 EDT Normal [facility] Comment on above: Order Comment: Check for other orders containing acetaminophen before administering. Max total daily amount is [address] LUMBAR WO CONTRASTon 06-07 CT LUMBAR WO CONTRAST CT lumbar spine INDICATION: 48 [id number] with RADICULOPATHY COMPARISON: 06/21/2023. TECHNIQUE: Contiguous axial noncontrast CT images of the lumbar spine were performed. Coronal and sagittal reformations were obtained. This exam was performed according to our departmental dose-optimization program, which includes automated exposure control, adjustment of the mA and/or kV according to patient size and/or use of iterative reconstruction technique. FINDINGS: There are 3 lumbar type vertebral bodies with sacralization of L4 and L5. Vertebral body heights are maintained. Stable grade 1 retrolisthesis L3 on L4. Stable L2-L3 and L3-L4 disc space narrowing. Straightening of the spine may be secondary to muscle spasm versus positioning. Stable chronic appearing fracture of the right inferior articular process of L2. There is no acute fracture or malalignment. Right renal cyst for which no follow-up is indicated. Right lower lobe pleural-based nodule measuring 1.3 cm. The details at each level are as follows: L1-L2: No significant central canal or neural foraminal narrowing. L2-L3: Small posterior disc osteophyte complex with mild bilateral neural foraminal narrowing. L3-L4: Moderate right neural foraminal narrowing. L4-L5: No significant central canal or neural foraminal narrowing. L5-S1: No significant central canal or neural foraminal narrowing. IMPRESSION: 1. No acute osseous abnormality of the lumbar spine. 2. Degenerative changes as described above. 3. Right lower lobe pleural-based nodule measuring 1.3 cm. Per Fleischner Society Guidelines, recommend prompt non-contrast Chest CT for further evaluation. These guidelines do not apply to immunocompromised patients and patients with cancer. Follow up in patients with significant comorbidities as clinically warranted. For lung cancer screening, adhere to Lung-RADS guidelines. Reference: Radiology. 2017; 284(1):228-43. If there is clinical concern for discitis/osteomyelitis, cauda equina syndrome, or central canal or neural foraminal narrowing, MRI should be considered. Electronically signed by: Sharmila Valdes MD 07/02/2023 12:44 PM EDT Technologist: AW,TMC,WCL Dictated By: SHARMILA VALDES MD Signed By: SHARMILA VALDES MD Signed Out: 07/02/23 12:44:52 [facility] ED Adult Data - Texton 07-01 ED Adult Data - Text ED Adult Data Enter ed On: 07/02/2023 10:13 EDT Performed On: 07/02/2023 10:12 EDT by Katiana Love RN Arrival Information Information Given by : Patient Referral Source ED : Home [facility] Mode of Arrival : Car / Walk-In Airway : Normal Breathing : Normal Circulation : Normal Katiana Love RN - 07/02/2023 10:12 EDT Screening-General Meds Triage : NA Accept Blood Products if Necessary : Yes Immunizations Current : Unknown Last Tetanus : Unknown Currently or : Unknown Preferred Verbal : Dutch Katiana Love RN - 07/02/2023 10:12 EDT Depression Screening Patient able to verbalize? : Yes Feeling Down, Depressed, Hopeless : Not at all Little Interest - Pleasure in Activities : Not at all Initial Depression Screen Score : 0 Depression Screening Score 0 : No IP Pt being evaluated or treated for BH conditions : No Katiana Love RN - 07/02/2023 10:12 EDT Screening-Safety Abuse/Violence Concerns? : Patient denies Does the patient have a medically restricted extremity? : No Katiana oLve RN - 07/02/2023 10:12 EDT Problem List Problem List obtained from : Patient Katiana Love RN - 07/02/2023 10:12 EDT (As Of: 07/02/2023 10:13:44 EDT) Problems(Active) Pulmonary embolus RESOLVED (SNOMED CT :[id number] ) Name of Problem: Pulmonary embolus RESOLVED ; Recorder: Katiana Love RN; Confirmation: Confirmed ; Classification: Medical ; Code: [id number] ; Contributor System: PowerChart ; Last Updated: 07/02/2023 10:13 EDT ; Life Cycle Date: 07/02/2023 ; Life Cycle Status: Active ; Vocabulary: SNOMED CT Diagnoses(Active) Back pain Date: 07/02/2023 ; Diagnosis Type: Reason For Visit ; Confirmation: Confirmed ; Clinical Dx: Back pain ; Classification: Medical ; Clinical Service: Emergency medicine ; Code: PNED ; Probability: 0 ; Diagnosis Code: [id number] Procedure History ED Devices Present on Arrival To ED : None Urinary Catheter Present on Admit to ED : No Katiana Love RN - 07/02/2023 10:12 EDT - Procedure History (As Of: 07/02/2023 10:13:44 EDT) Anesthesia Minutes: 0 ; Procedure Name: BACK SURGERY ; Procedure Minutes: 0 ; Comments: 07/02/2023 10:13 EDT - Katiana Love RN 2005 ; Last Reviewed Dt/Tm: 07/02/2023 10:13:30 EDT Social History Does pt have any alcohol,drugs or tobacco : No Do you consume Alcohol : No Social History obtained from : Patient Katiana Love RN - 07/02/2023 10:12 EDT Social History (As Of: 07/02/2023 10:13:44 EDT) Alcohol: Denies Alcohol Use (Last Updated: 06/21/2023 11:00:10 EDT by Karla Finney RN ) Tobacco: 10 or more cigarettes (1/2 pack or more)/day in last 30 days Tobacco Use:. Cigarettes (Last Updated: 06/21/2023 11:00:22 EDT by Karla Finney RN) Substance Abuse: Current, Marijuana (Last Updated: 06/21/2023 11:00:33 EDT by Karla Finney RN) Family History Family History obtained from : Patient Katiana Love RN - 07/02/2023 10:12 EDT Family History (As Of: 07/02/2023 10:13:45 EDT) Infection Screening Travel outside of [place] within past 21 days? : No Positive COVID test in the last 10 days? : No Exposure to and/or close contact with a person who has a laboratory-confirmed COVID test within the last 48 hours. : No Coronavirus New Symptoms w/o Cause : No Katiana Love RN - 07/02/2023 10:12 EDT [facility] ED Discharge Educationon ED Discharge Education Neurology Sciatica: Care Instructions Overview Sciatica (say ixr-TA-us-kuh) is an irritation of one of the sciatic nerves, which come from the spinal cord in the lower back. The sciatic nerves and their branches extend down through the buttock to the foot. Sciatica can develop when an injured disc or arthritis in the back irritates or presses against a spinal nerve root. Its main symptom is pain, numbness, or weakness that is often worse in the leg or foot than in the back. Sciatica often will improve and go away with time. Early treatment usually includes medicines and exercises to relieve pain. Follow-up care is a matos part of your treatment and safety. Be sure to make and go to all appointments, and call your doctor if you are having problems. It's also a good idea to know your test results and keep a list of the medicines you take. How can you care for yourself at home? ? Take pain medicines exactly as directed. ? If the doctor gave you a prescription medicine for pain, take it as prescribed. ? If you are not taking a prescription pain medicine, ask your doctor if you can take an sizh-cbj-atzuakf medicine. ? Use heat or ice to relieve pain. ? To apply heat, put a warm water bottle, heating pad set on low, or warm cloth on your back. Do not go to sleep with a heating pad on your skin. ? To use ice, put ice or a cold pack on the area for 10 to 20 minutes at a time. Put a thin cloth between the ice and your skin. ? Avoid sitting if possible, unless it feels better than standing. ? Alternate lying down with short walks. Increase your walking distance as you are able to without making your symptoms worse. ? Do not do anything that makes your symptoms worse. When should you call for help? Call 911 anytime you think you may need emergency care. For example, call if: ? You are unable to move a leg at all. Call your doctor now or seek immediate medical care if: ? You have new or worse symptoms in your legs or buttocks. Symptoms may include: ? Numbness or tingling. ? Weakness. ? Pain. ? You lose bladder or bowel control. Watch closely for changes in your health, and be sure to contact your doctor if: ? You are not getting better as expected. Where can you learn more? Go to https://www.[employer]/patientSocialOptimizr Enter Z239 in the search box to learn more about Sciatica: Care Instructions. Current as of: June 14, 2021 Content Version: 13.3 ? [employer]. Care instructions adapted under license by your healthcare professional. If you have questions about a medical condition or this instruction, always ask your healthcare professional. [employer] disclaims any warranty or liability for your use of this information. Nutrition and Exercise Sciatica: Exercises Introduction Here are some examples of typical rehabilitation exercises for your condition. Start each exercise slowly. Ease off the exercise if you start to have pain. Your doctor or physical therapist will tell you when you can start these exercises and which ones will work best for you. When you are not being active, find a comfortable position for rest. Some people are comfortable on the floor or a medium-firm bed with a small pillow under their head and another under their knees. Some people prefer to lie on their side with a pillow between their knees. Don't stay in one position for too long. Take short walks (10 to 20 minutes) every 2 to 3 hours. Avoid slopes, hills, and stairs until you feel better. Walk only distances you can manage without pain, especially leg pain. How to do the exercises Back stretches 1. Get down on your hands and knees on the floor. 2. Relax your head and allow it to droop. Round your back up toward the ceiling until you feel a nice stretch in your upper, middle, and lower back. Hold this stretch for as long as it feels comfortable, or about 15 to 30 seconds. 3. Return to the starting position with a flat back while you are on your hands and knees. 4. Let your back sway by pressing your stomach toward the floor. Lift your buttocks toward the ceiling. 5. Hold this position for 15 to 30 seconds. 6. Repeat 2 to 4 times. Follow-up care is a matos part of your treatment and safety. Be sure to make and go to all appointments, and call your doctor if you are having problems. It's also a good idea to know your test results and keep a list of the medicines you take. Where can you learn more? Go to https://www.healthwise.ne t/patientEd Enter L998 in the search box to learn more about Sciatica: Exercises. Current as of: June 14, 2021 Content Version: 13.3 ? [employer]. Care instructions adapted under license by your healthcare professional. If you have questions about a medical condition or this instruction, always ask your healthcare professional. [employer] disclaims any warranty or liability for your use of this information. Orthopedics and Rheumatology Back Pain: (more content not included)... [facility] ED Emergency Severity Index Adult-Texton 07-02-2023 ED Emergency Severity Index Adult-Text DEMETRIO - Adult Entered On: 07/02/2023 8:41 EDT Performed On: 07/02/2023 8:40 EDT by Katiana Love RN DEMETRIO DEMETRIO Level 1 - Adult : No DEMETRIO Level 2 - Adult : No Resources DEMETRIO : One Katiana Love RN - 07/02/2023 8:40 EDT DCP GENERIC CODE Visit Reason : BACK PAIN Tracking Triage Date/Time : 07/02/2023 08:40 EDT Tracking Reg Status : Requested Tracking Acuity : [id number] Tracking Group : [id number] Tracking Katiana Love RN - 07/02/2023 8:40 EDT Recommended DEMETRIO Level : 4 Katiana Love RN - 07/02/2023 8:40 EDT [facility] ED Nrsing Adlt Triage Sep Sc rning - Texton 07-02-2023 ED Nrsing Adlt Triage Sep Scrning - Text ED Nursing Adult Triage Sepsis Screening Tool Entered On: 07/02/2023 10:10 EDT Performed On: 07/02/2023 10:10 EDT by Katiana Love RN Adult Sepsis Screening Sepsis Infection Screening ED : No Katiana Love RN - 07/02/2023 10:10 EDT [facility] ED Patient Summaryon [address] [facility] Emergency Department Discharge Instructions [address] [place] [address] (Patient Copy) Name: LM MONACO : 1975 Allergies: Flagyl Diagnosis: 1:Acute lumbar radiculopathy with left-sided sciatica; 2:Pulmonary nodule, incidental finding Visit Date: 07/02/2023 08:20:27 [facility]#: [id number] Current Date Time: 07/02/2023 14:00:45 Address: [address] [facility] [address] Primary Care Provider: Name: NO FAMILY PHYSICIAN, 837 Phone: Emergency Department Care Providers: Primary Physician: PHILL VAZQUEZ DO Thank you for choosing [facility] for your emergency care. You are very important to us. Our goal is to demonstrate our high quality medical care, and provide you with a very good patient experience. You may receive a survey about our service. Please take the time to complete the survey and return it so we can continue to enhance our service. Thank you again for allowing the [facility] Emergency Department to care for your medical needs. If you have questions about your care or follow up information please contact us at [phone]. Follow-Up Instructions LM MONACO has been given these follow-up instructions: With: Address: When: [facility] [address] [facility] [facility] [address] [place] [address] [facility] (1) Within 3 to 5 days With: Address: When: AGNES NUR, SETH, Neurosurgery [address] [facility] [address] [place] [address] Within 3 to 5 days With: Address: When: FAITH ROBERTO DO, Family Practice [address] [place] [phone] Within 3 to 5 days Comments: Please seek immediate medical attention if you develop worsening pain, fever, difficulty urinating, numbness or tingling, weakness, or you have any new concerns. With: Address: When: NO FAMILY PHYSICIAN, 837 Within 3 to 5 days Patient Education Materials LM MONACO has been given the following patient education materials: Learning About Lung Nodules What is a lung nodule? A lung nodule is a growth in the lung. A single nodule surrounded by lung tissue is called a solitary pulmonary nodule. A lung nodule might not cause any symptoms. Your doctor may have found one or more nodules on your lung when you were having a chest X-ray or CT scan. Or it may have been found during a lung cancer screening. A lung nodule may be caused by an old infection or cancer. It might also be a noncancerous growth. Lung nodules can cause a screening to give an abnormal result. Most nodules do not cause any harm. But without further tests, your doctor can't tell whether an abnormal finding is cancer, a harmless nodule, or something else. What can you expect when you have a lung nodule? Your doctor will look at several risk factors to see how likely it is that the nodule is cancer. He or she will look at: ? Whether you smoke or have ever smoked. ? Your age and your family's medical history. ? Whether you have ever had lung cancer. ? The size, density, and other characteristics of the nodule. ? Whether the nodule has changed in size. Your doctor may look at past chest X-rays or CT scans, if available, and compare them. Or you may have a series of CT scans to see if the nodule grows over time. What happens next depends on the risk of the nodule being cancer. ? If you have no risk factors and the nodule is small, your doctor may advise doing nothing. ? If the risk is small, your doctor may schedule follow-up appointments and CT scans later to see if the nodule is growing. ? If there's a higher risk of cancer, your doctor may: ? Do a PET scan, which may help tell if the nodule is cancerous or not. ? Take a sample of tissue from the nodule for testing. This is called a biopsy. ? Remove the nodule with surgery. Follow-up care is a matos part of your treatment and safety. Be sure to make and go to all appointments, and call your doctor if you are having problems. It's also a good idea to know your test results and keep a list of the medicines you take. Where can you learn more? Go to https://www.[employer].ne t/patientEd Enter E678 in the search box to learn more about Learning About Lung Nodules. Current as of: December 14, 2020 Content Version: 13.3 ? [employer]. Care instructions adapted under license by your healthcare professional. If you have questions about a medical condition or this instruction, always ask your healthcare professional. [employer] disclaims any warranty or liability for your use of this information. Sciatica: Exercises Introduction Here are some examples of typical rehabilitation exercises (more content not included)... [facility] ED Progress Noteon ED Progress Note PT STATES SHE WOKE U P WITH BACK PAIN THIS AM, LEFT LOWER RADIATING DOWN L LEG, PT DENIES ANY INJURY, PWD, GCS=15, NAD, AMBULATES WITH STEADY GAIT 1246 REPORT TO RITA RICHARDSON 1245: Report received from Katiana RICHARDSON. Assumed care of pt. 1354: Discharge teaching complete, pt expresses understanding. Pt given gauze for tooth per request, ambulates out of unit with all belongings. [facility] ED Triage Adult-Texton 07-01 ED Triage Adult-Text ED Triage Entered O n: 07/02/2023 8:41 EDT Performed On: 07/02/2023 8:41 EDT by Katiana Love RN Triage (As Of: 07/02/2023 08:41:43 EDT) Diagnoses(Active) Back pain Date: 07/02/2023 ; Diagnosis Type: Reason For Visit ; Confirmation: Confirmed ; Clinical Dx: Back pain ; Classification: Medical ; Clinical Service: Emergency medicine ; Code: PNED ; Probability: 0 ; Diagnosis Code: [id number] (As Of: 07/02/2023 08:41:43 EDT) Allergies (Active) Flagyl Estimated Onset Date: Unspecified ; Created By: Karla Finney RN; Reaction Status: Active ; Category: Drug ; Substance: Flagyl ; Type: Allergy ; Updated By: Krala Finney RN; Reviewed Date: 07/02/2023 8:41 EDT Vitals/Ht/Wt Temperature Oral : 36.8 degC Pulse Rate : 65 bpm Respiratory Rate : 16 br/min Systolic Blood Pressure : 101 mmHg Diastolic Blood Pressure : 55 mmHg (LOW) SpO2 : 100 % Oxygen Therapy : Room air Pain Symptoms : Yes Numeric Pain Scale : 10 = Severe Pain VAS Pain Scale Age : VAS (8 yrs & older) Height/Length Dosing : 162.56 cm(Converted to: 5.33 ft, 64.00 in) Weight Measured Type of Scale : Standing Scale Weight Dosing : 53.5 kg(Converted to: 1,887.157 oz, 117.947 lb) Body Mass Index Dosing : 20 Katiana Love RN - 07/02/2023 8:41 EDT [facility] KETOROLAC 60MG/2ML INJon KETOROLAC 60MG/2ML INJ PRN Response Entered On: 07/02/2023 13:58 EDT Performed On: 07/02/2023 11:55 EDT by Cinthia Hilario RN Intervention Information: ketorolac Performed by Katiana Love RN on 07/02/2023 10:55:00 EDT ketorolac = Toradol,60mg IM,Left Vastus Lateral PRN Medication Response PRN Medication used for : Pain PRN Medication Effectiveness : Yes PRN Response Pain Scales : Numeric (8yrs & older) Numeric Pain Scale Age : Numeric (8yrs & older) Actual time of reassessment : No (not needed time is correct) Cinthia Hilario RN - 07/02/2023 13:58 EDT Numeric Pain Scale Numeric Pain Scale : 5 = Moderate pain Numeric Pain Score : 5 Cinthia Hilario RN - 07/02/2023 13:58 EDT [facility] Comment on above: Order Comment: do no t exceed 60mg/24hrs for patients over 65, 120mg/24hr for patients 65 or younger; ED Physician Reporton 2023 ED Physician Report LM MONACO DOB:1975 [facility]:[id number] Registration Date:06/21/2023 Basic Information Time Seen: PHILL VAZQUEZ DO / 06/21/2023 11:59 Arrival Mode: Walk-In [] History Source: Patient _ _ [] History limitation: None [] History of Present Illness Patient is a 48-year-old female who presents emergency department with back pain. Patient states that she started having spasming in her low back about 2 days ago. No injury that she is aware of. She states her pain is constant but at times she has sharp spasms. It is worse with movement. It does shoot down her left leg to her ankle. No numbness or tingling. No focal weakness. No fevers or chills. No saddle anesthesia. No bowel or bladder dysfunction. Normal bowel movements. She does report that she had kyphoplasty in 2005 after a compression fracture at L3/L4 after a sledding injury. No further concerns at this time. Review of Systems Constitutional symptoms: [Negative except as documented in HPI.] Skin symptoms: [Negative except as documented in HPI.] Eye symptoms: [Negative except as documented in HPI.] ENMT symptoms: [Negative except as documented in HPI.] Respiratory symptoms: [Negative except as documented in HPI.] Cardiovascular symptoms: [Negative except as documented in HPI.] Gastrointestinal symptoms: [Negative except as documented in HPI.] Genitourinary symptoms: [Negative except as documented in HPI.] Musculoskeletal symptoms: [Negative except as documented in HPI.] Psychiatric symptoms: [Negative except as documented in HPI.] Neurologic symptoms: [Negative except as documented in HPI.] Additional review of systems information: [All other systems reviewed and otherwise negative, Systems negative except as stated in the H&P.] Physical Exam Vitals & Measurements Initial: T: 36.6 ?C (Oral) HR: 66 (Peripheral) BP: 123/72 RR: 20 SpO2: 99% O2 Therapy: Room air WT: 52.2 kg (Dosing) Latest: HR: 59 (Peripheral) BP: 103/65 RR: 20 SpO2: 97% O2 Therapy: Room air Vital Signs: Per nurse's notes. General: Alert, No acute distress Skin: Warm, dry, no rash. Head: Normocephalic, atraumatic. Neck: Supple, trachea midline. Eye: Pupils are equal, round and reactive to light, extraocular movements are intact, normal conjunctiva. Ears, nose, mouth and throat: Oral mucosa moist. Cardiovascular: Regular rate and rhythm, no murmur, peripheral pulses intact, no edema. Respiratory: Lungs are clear to auscultation, respirations are non-labored, breath sounds are equal. Back: Tenderness to palpation across lumbar spine, worse in left paraspinal muscles and over sciatic notch. Normal alignment. No step-offs. Positive straight leg test on the left in sitting position. Reflexes are intact bilaterally. Musculoskeletal: No deformity, no long bone tenderness to palpation Gastrointestinal: Soft, nontender, non distended, normal bowel sounds. Neurological: Alert and oriented to person, place, time, and situation, CNII-XII intact, Motor strength equal and intact in all extremities, normal dorsiflexion and plantarflexion. Sensation grossly intact and equal in all extremities. Medical Decision Making ED Course: No clinical signs of caudal equina, epidural abscess, or discitis. No indication for labs or MRI at this time. CT is neg for fracture, lesion, or other acute findings. Pt was incidentally found to have a pulmonary nodule. She was informed of this and understands to f/u with pcp for conitnued monitoring as needed. Pt's pain is much better at reeval. No focal neuro deficits. She is stable for d/c home [facility] instructions for continued outpatient f/u. I have reviewed signs of a worsening condition and reasons to return emergently for repeat eval Shared decision making: Patient's disposition was determined through shared decision making after discussion of ED work up, treatment course, and risk/benefits of any possible treatment with [patient.] All are agreeable with treatment plan at this time. Reexamination/Reevaluatio n improved Systolic Blood Pressure: 103 mmHg Diastolic Blood Pressure: 65 mmHg Temperature Oral: 36.6 degC Respiratory Rate: 20 br/min Mean Arterial Pressure, Cuff: 78 mmHg SpO2: 97 % Oxygen Therapy: Room air Peripheral Pulse Rate: 59 bpm Low Weight Dosin.2 kg Discharge/Plan *Discharge Disposition NO DISCHARGE DISPOSITION DOCUMENTED Patient Education Pulmonary Nodules: General Info Back Pain Sciatica Follow Up With When Contact Information Please seek immediate medical attention if you develop worsening pain, fever, difficulty urinating, numbness or tingling, weakness, or you have any new concerns. Within n/a Additional Instructions: MICKIE CHAN, Family Practice Within 1 to 2 days [address] [facility] [address] [place] [address] Business (1) Additional Instructions: Assessment This Visit Diagnosis Acute lumbar radiculopathy M54.16 Ordered: traMADol(traMADol (more content not included)... [facility] APAP 325MG/OXYCODONE 5MG TAB on 06-21-2023 APAP 325MG/OXYCODONE 5MG TAB PRN Response Entered On: 06/21/2023 14:06 EDT Performed On: 06/21/2023 14:06 EDT by Keith Fairbanks RN Intervention Information: acetaminophen-oxycodone Performed by Keith Fairbanks RN on 06/21/2023 13:10:00 EDT acetaminophen-oxycodone,1 tabs ORAL PRN Medication Response PRN Medication used for : Pain PRN Medication Effectiveness : Yes PRN Response Pain Scales : Numeric (8yrs & older) Numeric Pain Scale Age : Numeric (8yrs & older) Actual time of reassessment : Yes Keith Fairbanks RN - 06/21/2023 14:06 EDT Numeric Pain Scale Numeric Pain Scale : 0 = No Pain/ Other Indications Numeric Pain Score : 0 Keith Fairbanks RN - 06/21/2023 14:06 EDT [facility] Comment on above: Order Comment: Check for other orders containing acetaminophen before administering. Max total daily amount is [address] LUMBAR WO CONTRASTon 06-06 CT LUMBAR WO CONTRAST EXAMINATION: CT LUMBAR WO CONTRAST CLINICAL HISTORY: PAIN COMPARISON: None TECHNIQUE: Contiguous axial images of the lumbar spine were obtained without the administration of intravenous contrast followed by reconstruction images. The exam was performed according to our departmental dose-optimization program, which includes automated exposure control, adjustment of the mA and/or kV according to patient size and/or use of iterative reconstruction technique. FINDINGS: BONES: There are 3 lumbar type vertebral bodies. The L4 and L5 levels are sacralized. Minimal grade 1 retrolisthesis L3-L4. No acute fracture or posttraumatic malalignment. DEGENERATIVE CHANGES: Mild-moderate L2-L3 and L3-L4 degenerative disc disease. There is a vacuum disc at the L3-L4 level. Moderate facet degeneration L2-L5. No evidence of a hemilaminectomy on the left at the level of L5. SOFT TISSUE/RETROPERITONEUM: No paraspinal mass noted. Subpleural right lower lobe nodule measures 9 x 11 mm. IMPRESSION: 1. No acute osseous abnormality of the lumbar spine. 2. 11 mm right solid pulmonary nodule detected on incomplete chest CT. Consider dedicated CT imaging of the chest. RECOMMENDATIONS: If there is further concern for infection, nerve root compression, or disc herniation correlation to MRI imaging would be recommended. Electronically signed by: Davon Duran MD 06/21/2023 01:16 PM EDT Technologist: ELISEO MONTANA Dictated By: DAVON DURAN MD Signed By: DAVON DURAN MD Signed Out: 06/21/23 13:16:53 [facility] ED Adult Data - Texton 06-20 ED Adult Data - Text ED Adult Data Enter ed On: 06/21/2023 11:00 EDT Performed On: 06/21/2023 10:56 EDT by Karla Finney RN Arrival Information Information Given by : Patient Referral Source ED : Home [facility] Mode of Arrival : Car / Walk-In Airway : Normal Breathing : Normal Circulation : Normal Karla Finney RN - 06/21/2023 10:56 EDT Screening-General Meds Triage : Other Accept Blood Products if Necessary : Yes Immunizations Current : Unknown Last Tetanus : Unknown Currently or : Not Applicable Karla Finney RN - 06/21/2023 10:56 EDT Depression Screening Patient able to verbalize? : Yes Feeling Down, Depressed, Hopeless : Not at all Little Interest - Pleasure in Activities : Not at all Initial Depression Screen Score : 0 Depression Screening Score 0 : No IP Pt being evaluated or treated for BH conditions : No Karla Finney RN - 06/21/2023 10:56 EDT Screening-Safety Abuse/Violence Concerns? : Patient denies Does the patient have a medically restricted extremity? : No Karla Finney RN 06/21/2023 10:56 EDT Problem List Problem List obtained from : Patient Karla Finney RN - 06/21/2023 10:56 EDT (As Of: 06/21/2023 11:00:40 EDT) Diagnoses(Active) Back pain Date: 06/21/2023 ; Diagnosis Type: Reason For Visit ; Confirmation: Confirmed ; Clinical Dx: Back pain ; Classification: Medical ; Clinical Service: Non-Specified ; Code: PNED ; Probability: 0 ; Diagnosis Code: [id number] Procedure History ED Devices Present on Arrival To ED : None Urinary Catheter Present on Admit to ED : No Karla Finney RN - 06/21/2023 10:56 EDT - Procedure History (As Of: 06/21/2023 11:00:40 EDT) Social History Does pt have any alcohol,drugs or tobacco : No Do you consume Alcohol : No Social History obtained from : Patient Karla Finney RN - 06/21/2023 10:56 EDT Social History (As Of: 06/21/2023 11:00:40 EDT) Alcohol: Denies Alcohol Use (Last Updated: 06/21/2023 11:00:10 EDT by Karla Finney RN ) Tobacco: 10 or more cigarettes (1/2 pack or more)/day in last 30 days Tobacco Use:. Cigarettes (Last Updated: 06/21/2023 11:00:22 EDT by Karla Finney RN) Substance Abuse: Current, Marijuana (Last Updated: 06/21/2023 11:00:33 EDT by Karla Finney RN) Infection Screening Travel outside of [place] within past 21 days? : No Positive COVID test in the last 10 days? : No Exposure to and/or close contact with a person who has a laboratory-confirmed COVID test within the last 48 hours. : No Coronavirus New Symptoms w/o Cause : No Karla Finney RN - 06/21/2023 10:56 EDT [facility] ED Discharge Educationon ED Discharge Education Neurology Sciatica: Care Instructions Overview Sciatica (say lrb-VN-zj-kuh) is an irritation of one of the sciatic nerves, which come from the spinal cord in the lower back. The sciatic nerves and their branches extend down through the buttock to the foot. Sciatica can develop when an injured disc or arthritis in the back irritates or presses against a spinal nerve root. Its main symptom is pain, numbness, or weakness that is often worse in the leg or foot than in the back. Sciatica often will improve and go away with time. Early treatment usually includes medicines and exercises to relieve pain. Follow-up care is a matos part of your treatment and safety. Be sure to make and go to all appointments, and call your doctor if you are having problems. It's also a good idea to know your test results and keep a list of the medicines you take. How can you care for yourself at home? ? Take pain medicines exactly as directed. ? If the doctor gave you a prescription medicine for pain, take it as prescribed. ? If you are not taking a prescription pain medicine, ask your doctor if you can take an sbhf-yqn-ftgibll medicine. ? Use heat or ice to relieve pain. ? To apply heat, put a warm water bottle, heating pad set on low, or warm cloth on your back. Do not go to sleep with a heating pad on your skin. ? To use ice, put ice or a cold pack on the area for 10 to 20 minutes at a time. Put a thin cloth between the ice and your skin. ? Avoid sitting if possible, unless it feels better than standing. ? Alternate lying down with short walks. Increase your walking distance as you are able to without making your symptoms worse. ? Do not do anything that makes your symptoms worse. When should you call for help? Call 911 anytime you think you may need emergency care. For example, call if: ? You are unable to move a leg at all. Call your doctor now or seek immediate medical care if: ? You have new or worse symptoms in your legs or buttocks. Symptoms may include: ? Numbness or tingling. ? Weakness. ? Pain. ? You lose bladder or bowel control. Watch closely for changes in your health, and be sure to contact your doctor if: ? You are not getting better as expected. Where can you learn more? Go to https://www.[employer].ne t/patientEd Enter Z239 in the search box to learn more about Sciatica: Care Instructions. Current as of: June 14, 2021 Content Version: 13.3 ? [employer]. Care instructions adapted under license by your healthcare professional. If you have questions about a medical condition or this instruction, always ask your healthcare professional. [employer] disclaims any warranty or liability for your use of this information. Orthopedics and Rheumatology Back Pain: Care Instructions Your Care Instructions Back pain has many possible causes. It is often related to problems with muscles and ligaments of the back. It may also be related to problems with the nerves, discs, or bones of the back. Moving, lifting, standing, sitting, or sleeping in an awkward way can strain the back. Sometimes you don't notice the injury until later. Arthritis is another common cause of back pain. Although it may hurt a lot, back pain usually improves on its own within several weeks. Most people recover in 12 weeks or less. Using good home treatment and being careful not to stress your back can help you feel better sooner. Follow-up care is a matos part of your treatment and safety. Be sure to make and go to all appointments, and call your doctor if you are having problems. It's also a good idea to know your test results and keep a list of the medicines you take. How can you care for yourself at home? ? Sit or lie in positions that are most comfortable and reduce your pain. Try one of these positions when you lie down: ? Lie on your back with your knees bent and supported by large pillows. ? Lie on the floor with your legs on the seat of a sofa or chair. ? Lie on your side with your knees and hips bent and a pillow between your legs. ? Lie on your stomach if it does not make pain worse. ? Do not sit up in bed, and avoid soft couches and twisted positions. Bed rest can help relieve pain at first, but it delays healing. Avoid bed rest after the first day of back pain. ? Change positions every 30 minutes. If you must sit for long periods of time, take breaks from sitting. Get up and walk around, or lie in a comfortable position. ? Try using a heating pad on a low or medium setting for 15 to 20 minutes every 2 or 3 hours. Try a warm shower in place of one session with the heating pad. ? You can also try an ice pack for 10 to 15 minutes every 2 to 3 hours. Put a thin cloth between the ice pack and your skin. ? Take pain medicines exactly as directed. ? If the doctor gave you a prescription medicine for pain, take it as prescribed. ? If you are not taking a prescription pain medicine, ask your doctor if you can take an over-th (more content not included)... [facility] ED Emergency Severity Index Adult-Texton 06-21-2023 ED Emergency Severity Index Adult-Text DEMETRIO - Adult Entered On: 06/21/2023 13:00 EDT Performed On: 06/21/2023 13:00 EDT by Joan Spivey RN DEMETRIO DCP GENERIC CODE Visit Reason : lowe back pain/spasms Tracking Triage Date/Time : 06/21/2023 10:55 EDT Tracking Reg Status : Complete Tracking Acuity : [id number] Tracking Group : [facility] Tracking Joan Spivey RN - 06/21/2023 13:00 EDT [facility] ED Emergency Severity Index Adult-Text DEMETRIO - Adult Entered On: 06/21/2023 10:55 EDT Performed On: 06/21/2023 10:55 EDT by Karla Finney RN DEMETRIO DCP GENERIC CODE Visit Reason : lowe back pain/spasms Tracking Triage Date/Time : 06/21/2023 10:55 EDT Tracking Reg Status : Requested Tracking Acuity : [id number] Tracking Group : [facility] Tracking Karla Finney RN - 06/21/2023 10:55 EDT [facility] ED Nrsing Adlt Triage Sep Sc rning - Texton 06-21-2023 ED Nrsing Adlt Triage Sep Scrning - Text ED Nursing Adult Triage Sepsis Screening Tool Entered On: 06/21/2023 10:55 EDT Performed On: 06/21/2023 10:55 EDT by Karla Finney RN Adult Sepsis Screening Sepsis Infection Screening ED : No Karla Finney RN - 06/21/2023 10:55 EDT [facility] ED Patient Summaryon [address] [facility] Emergency Department Discharge Instructions [address] [place] [address] (Patient Copy) Name: LM MONACO : 1975 Allergies: Flagyl Diagnosis: Acute lumbar radiculopathy; Lumbar strain; Pulmonary nodule Visit Date: 06/21/2023 10:45:25 Current Date Time: 06/21/2023 14:18:32 Address: [address] [facility] [address] Primary Care Provider: Name: NO FAMILY PHYSICIAN, [phone] Phone: Emergency Department Care Providers: Primary Physician: PHILL VAZQUEZ DO Thank you for choosing [facility] for your emergency care. You are very important to us. Our goal is to demonstrate our high quality medical care, and provide you with a very good patient experience. You may receive a survey about our service. Please take the time to complete the survey and return it so we can continue to enhance our service. Thank you again for allowing the [facility] Emergency Department to care for your medical needs. If you have questions about your care or follow up information please contact us at [phone]. Follow-Up Instructions LM MONACO has been given these follow-up instructions: With: Address: When: Please seek immediate medical attention if you develop worsening pain, fever, difficulty urinating, numbness or tingling, weakness, or you have any new concerns. Within n/a With: Address: When: [facility], [facility] [address], [address] [place] [address] Business (1) Within 1 to 2 days Patient Education Materials LM MONACO has been given the following patient education materials: Learning About Lung Nodules What is a lung nodule? A lung nodule is a growth in the lung. A single nodule surrounded by lung tissue is called a solitary pulmonary nodule. A lung nodule might not cause any symptoms. Your doctor may have found one or more nodules on your lung when you were having a chest X-ray or CT scan. Or it may have been found during a lung cancer screening. A lung nodule may be caused by an old infection or cancer. It might also be a noncancerous growth. Lung nodules can cause a screening to give an abnormal result. Most nodules do not cause any harm. But without further tests, your doctor can't tell whether an abnormal finding is cancer, a harmless nodule, or something else. What can you expect when you have a lung nodule? Your doctor will look at several risk factors to see how likely it is that the nodule is cancer. He or she will look at: ? Whether you smoke or have ever smoked. ? Your age and your family's medical history. ? Whether you have ever had lung cancer. ? The size, density, and other characteristics of the nodule. ? Whether the nodule has changed in size. Your doctor may look at past chest X-rays or CT scans, if available, and compare them. Or you may have a series of CT scans to see if the nodule grows over time. What happens next depends on the risk of the nodule being cancer. ? If you have no risk factors and the nodule is small, your doctor may advise doing nothing. ? If the risk is small, your doctor may schedule follow-up appointments and CT scans later to see if the nodule is growing. ? If there's a higher risk of cancer, your doctor may: ? Do a PET scan, which may help tell if the nodule is cancerous or not. ? Take a sample of tissue from the nodule for testing. This is called a biopsy. ? Remove the nodule with surgery. Follow-up care is a matos part of your treatment and safety. Be sure to make and go to all appointments, and call your doctor if you are having problems. It's also a good idea to know your test results and keep a list of the medicines you take. Where can you learn more? Go to https://www.[employer].ne t/patientEd Enter E678 in the search box to learn more about Learning About Lung Nodules. Current as of: December 14, 2020 Content Version: 13.3 ? [employer]. Care instructions adapted under license by your healthcare professional. If you have questions about a medical condition or this instruction, always ask your healthcare professional. [employer] disclaims any warranty or liability for your use of this information. Back Pain: Care Instructions Your Care Instructions Back pain has many possible causes. It is often related to problems with muscles and ligaments of the back. It may also be related to problems with the nerves, discs, or bones of the back. Moving, lifting, standing, sitting, or sleeping in an awkward way can strain the back. Sometimes you don't notice the injury until later. Arthritis is another common cause of back pain. Although it may hurt a lot, back pain usually improv (more content not included)... [facility] ED Progress Noteon ED Progress Note Pt arrives to the ED via triage. O/a pt A&O x4. Pt states she started to have back pain about a day ago out of nowhere. Pt denies falling or hitting back on anything. Pt states the only thing that has changed has been starting a new relationship with increased sexual activity. Pt states lower back pain that is 9/10 tightness that is constant, radiates down her left leg, standing and touching back increases the pain. Pt denies, headache, dizziness, lightheadedness, nausea, vomiting, chest pain, abd pain and sob. O/e airway patent, breathing even and unlabored, and skin pink, warm and dry. Pt positive for weakness and pain on palpation. Pt negative for tachycardia, tachypnea, hyperthermia and hypertension. Dr. Vazquez at bedside. 1406- Pt states she is feeling much better. Pt states she doesn't have any pain or any spasms in the past ten minutes. Dr. Vazquez at bedside to update pt on continuation of care. 1415- Pt given discharge instructions and paperwork. Pt verbally understood instructions. Pt walked to ED exit. [facility] ED Triage Adult-Texton 06-20 ED Triage Adult-Text ED Triage Entered O n: 06/21/2023 10:56 EDT Performed On: 06/21/2023 10:56 EDT by Karla Finney RN Triage (As Of: 06/21/2023 10:56:36 EDT) Diagnoses(Active) Back pain Date: 06/21/2023 ; Diagnosis Type: Reason For Visit ; Confirmation: Confirmed ; Clinical Dx: Back pain ; Classification: Medical ; Clinical Service: Non-Specified ; Code: PNED ; Probability: 0 ; Diagnosis Code: [id number] (As Of: 06/21/2023 10:56:36 EDT) Allergies (Active) Flagyl Estimated Onset Date: Unspecified ; Created By: Karla Finney RN; Reaction Status: Active ; Category: Drug ; Substance: Flagyl ; Type: Allergy ; Updated By: Karla Finney RN; Reviewed Date: 06/21/2023 10:55 EDT Vitals/Ht/Wt Temperature Oral : 36.6 degC Pulse Rate : 66 bpm Respiratory Rate : 20 br/min Systolic Blood Pressure : 123 mmHg Diastolic Blood Pressure : 72 mmHg SpO2 : 99 % Oxygen Therapy : Room air Pain Symptoms : Yes Numeric Pain Scale : 10 = Severe Pain VAS Pain Scale Age : VAS (8 yrs & older) Height/Length Dosing : 162.56 cm(Converted to: 5.33 ft, 64.00 in) Weight Measured Type of Scale : Standing Scale Weight Dosing : 52.2 kg(Converted to: 1,841.301 oz, 115.081 lb) Body Mass Index Dosing : 20 Karla Finney RN - 06/21/2023 10:56 EDT [facility] KETOROLAC 60MG/2ML INJon KETOROLAC 60MG/2ML INJ PRN Response Entered On: 06/21/2023 14:06 EDT Performed On: 06/21/2023 14:06 EDT by Keith Fairbanks RN Intervention Information: ketorolac Performed by Keith Fairbanks RN on 06/21/2023 13:10:00 EDT ketorolac = Toradol,60mg IM,Left Ventragluteal PRN Medication Response PRN Medication used for : Pain PRN Medication Effectiveness : Yes PRN Response Pain Scales : Numeric (8yrs & older) Numeric Pain Scale Age : Numeric (8yrs & older) Actual time of reassessment : Yes Keith Fairbanks RN - 06/21/2023 14:06 EDT Numeric Pain Scale Numeric Pain Scale : 0 = No Pain/ Other Indications Numeric Pain Score : 0 Keith Fairbanks RN - 06/21/2023 14:06 EDT [facility] Comment on above: Order Comment: do no t exceed 60mg/24hrs for patients over 65, 120mg/24hr for patients 65 or younger; CNOVon 06-16-2023 CNOV Office Visit ([facility] ) ----- LM MONACO ([id number]) 1975 F Date Time Provider Department 06/16/23 11:50 AM JEREMY WILLARD [facility] During your visit today, we recorded the following information about you: Temperature Pulse Respiration Blood pressure 98.2 degrees 62/minute 20/minute 97/57 Roma James MA 06/16/2023 11:57 AM Signed Patient states that she finished antibiotics yesterday for an ear infection and she states that she does not feel any better. Patient states that she has been in a lot of pain especially at night and she is unable to sleep. She is taking Ibuprofen and flonase. Jeremy Willard MD, PhD 06/16/2023 12:34 PM Signed [facility] [place] Patient Name: Lm Monaco Today's Date: June 16, 2023 HPI: Lm Monaco is an 48 year old female who presents for: Ear Problem Left ear pain No drainage Diagnosed with acute otitis media on 05/29/2023, prescribed amoxicillin and Flonase Was then again seen in urgent care on 06/07/2023. Prescribed Augmentin for recurrent acute otitis media/unresolved. Reports ear pain started in the end of April, delayed coming in to see provider to see if it would go away on its own Also having some jaw pain Using previously prescribed Flonase and Aleve, minimal relief No sinus pressure or tenderness No nasal congestion or runny nose No sore throat No cough No difficulty breathing REVIEW OF SYSTEMS Denies fever, chills, night sweats, headache, change in vision, chest pain, heart palpitations, shortness of breath/difficulty breathing, cough, nausea, vomiting, diarrhea, constipation, abdominal pain, urinary symptoms, rash/lesions. PHYSICAL EXAM BP 97/57 Pulse 62 Temp 36.8 ?C (98.2 ?F) (Temporal) Resp 20 SpO2 99% Gen: Patient is pleasant, alert, and in no acute distress Head: Normocephalic, atraumatic Eyes: Sclera anicteric ENT: No nasal discharge, no pharyngeal erythema or exudate. Bilateral ears: External ear canal with no signs of infection or inflammation. Bilateral TMs retracted with no evidence of infection, inflammation, or effusion. No mastoid tenderness. Neck: Supple, no lymphadenopathy CV: Regular rate and rhythm Pulm: Clear to auscultation bilaterally, no wheezes, crackles, or rhonchi Neuro: No involuntary movements. Extrem: No cyanosis, clubbing, or edema Skin: Warm, dry, no visible rashes ASSESSMENT AND PLAN 1. Eustachian tube disorder, left - Currently no red flags. -Highly suspect effusion/dysfunction secondary to recent acute otitis media. No signs of infection or inflammation at this time. Patient reports sleeping sensitive to stimulants so prescribed lower dose/immediate release dose pseudoephedrine. Continue previously prescribed Flonase. Discussed proper administration. Patient already with ENT visit in July. Encourage patient to keep appointment. - Discussed conservative measures for symptom relief and treatment, including use of OTC medications. - pseudoephedrine (SUDAFED) 30 mg tablet; Take 1 tablet by mouth every 4 hours as needed for cold/allergy symptoms (ear pressure). Dispense: 30 tablet; Refill: 0 - azelastine 0.1% nasal spray; Use 2 Sprays in each nostril two times a day. Dispense: 30 mL; Refill: 0 - diclofenac, EC, (VOLTAREN) 75 mg EC tablet; Take 1 tablet by mouth two times a day as needed (for pain). Dispense: 14 tablet; Refill: 0 Do not combine diclofenac oral tablets with any other NSAIDs. -Discussed red flags and precautions for immediate medical attention. Patient verbalized understanding and is agreeable to the plan. Jeremy Willard MD, PhD Family Medicine / Urgent Care June 16, 2023 Medical Decision Making: Problems: Moderate: New problem with uncertain prognosis Risk: Moderate: Drug management Medical Decision Making Level: 4 - Moderate This note was partially generated using [employer] voice recognition system, and there may be some incorrect words, spellings, and punctuation that were not noted in checking the note before saving. Referring Provider: SELF [[id number]] Allergies As of Date: 06/16/2023 Noted Allergy Reaction FLAGYL (METRONIDAZOLE) 03/10/2023 10 - Anaphylaxis Date Reviewed: 06/16/2023 Reviewed by: Roma James MA - Fully Assessed Reason for Visit: Ear Problem [38] Primary Visit Diagnosis:Eustachian tube disorder, left [H69.92] Order(s):pseudoephedrine (SUDAFED) 30 mg tabletTake 1 tablet by mouth every 4 hours as needed for cold/allergy symptoms (ear pressure).Disp: 30 tabletRfl: 0 azelastine 0.1% nasal sprayUse 2 Sprays in each nostril two times a day.Disp: 30 mLRfl: 0 diclofenac, EC, (VOLTAREN) 75 mg EC tabletTake 1 tablet by mouth two times a day as needed (for pain).Disp: 14 tabletRfl: 0 Prescriptions as of 06/16/2023 - pseudoephedrine (SUDAFED) 30 mg tablet Take (more content not included)... [facility] CNOVon 06-07-2023 [facility] Office Visit ([facility] ) ----- LM MONACO ([id number]) 1975 F Date Time Provider Department 06/07/23 12:20 PM MORIAH MALIN [facility] During your visit today, we recorded the following information about you: Temperature Pulse Respiration Blood pressure 98.7 degrees 87/minute 14/minute 95/60 Weight 53.5 kg Moriah Malin MD 06/07/2023 1:07 PM Signed Urgent Care Note History of Present Illness: Lm Monaco is a 48 year old female who presents today for chief complaint: Ear Pain (Left ear along with jaw pain still is not feeling any better since visit on 05/29/23) - Started: about 10 days ago - Located: left ear - Described as: left ear pain that intermittently radiates to left jaw - Notes she does have hx of grinding her teeth and TMJ o - Was seen for similar symptoms a week ago and diagnosed with left otitis media and started don 7 day course Amoxicillin and advised to start flonase - Has tried: amoxicillin - Denies: fever, chills, headache, dizziness, nausea, vomiting, sore throat, qtips usage, drainage from ear, bleeding from ear, ear trauma, recent swimming, recent flights, runny nose, wheezing, cough, shortness of breath, chest pain, palpitations, abdominal pain, diarrhea, constipation, rash, numbness/tingling, sick contacts Review of Symptoms: Pertinent positives and negatives noted per HPI otherwise review of systems is negative. Past Medical History: No past medical history on file. No past surgical history on file. Current Outpatient Medications Medication Sig fluticasone (FLONASE) 50 mcg/actuation nasal spray Use 1 [place] in each nostril daily at bedtime. (Patient not taking: Reported on 06/07/2023) ARIPiprazole (ABILIFY) 30 mg tablet TAKE 1 TABLET BY MOUTH ONCE DAILY IN THE MORNING (Patient not taking: Reported on 04/09/2023) sertraline (ZOLOFT) 100 mg tablet Take 150 mg by mouth as directed. (Patient not taking: Reported on 04/09/2023) No current facility-administered medications for this visit. ALLERGIES Allergen Reactions Flagyl [Metronidazo* Anaphylaxis Objective: BP 95/60 Pulse 87 Temp (Src) 98.7 (Temporal) Resp 14 Wt 118 lb (53.5kg) Physical Exam: General: no acute distress, well groomed HEENT: normocephalic, atraumatic. Nonicteral sclera, extraocular motions intact bilaterally. Bilateral tragus without any tenderness to palpation. Bilateral ear canals without any erythema or cerumen impaction. Left TM erythematous and bulging. Right TM visualized and intact. Nose without active drainage. Oropharynx without lesions, moist mucous membranes. Tenderness to palpation of left TMJ. Full ROM of jaw Neck: no palpable lymphadenopathy Cardiovascular: normal peripheral perfusion, regular rate and rhythm Lungs: Non-labored breathing, clear to auscultation bilaterally. No wheezing, rales, or rhonchi Skin: No lesions appreciated on exposed surfaces Psych: Cooperative, answers questions appropriately Assessment and Plan: (H66.002) Acute suppurative otitis media of left ear without spontaneous rupture of tympanic membrane, recurrence not specified (primary encounter diagnosis) (M26.622) TMJ tenderness, left Comment: Patient with hx of teeth grinding and TMJ with recent left otitis media s/p 7 day course amoxicillin presents with 10 day hx of left otalgia and intermittent left TMJ pain, found to have exam for continued left otitis media with left sided TMJ. Discussed etiology of diagnosis with patient. Rx Augmentin ordered to be started today. Advised to start ibuprofen/acetaminophen prn jaw pain or left ear pain and advised to avoid hard or crunchy foods. Discussed risks, benefits, alternatives, and potential side effects of medications. Referral to ENT Department was placed for close follow up. Advised to follow up with PCP if symptoms continue or worsen and advised to go to ED if uncontrolled fever, worsening jaw pain, numbness/tingling, chest pain, shortness of breath, inability to tolerate oral intake, or new concerning symptoms begins. Patient expressed understanding. Plan: amoxicillin-clavulanate potassium (AUGMENTIN) 875-125 mg per tablet, fluconazole (DIFLUCAN) 150 mg tablet, CONSULT TO ENT Moriah Malin MD Allergies As of Date: 06/07/2023 Noted Allergy Reaction FLAGYL (METRONIDAZOLE) 03/10/2023 10 - Anaphylaxis Date Reviewed: 06/07/2023 Reviewed by: Gerri Linares - Fully Assessed Reason for Visit: Ear Pain [817] Cmt: Left ear along with jaw pain still is not feeling any better since visit on 05/29/23 Primary Visit Diagnosis:Acute suppurative otitis media of left ear without spontaneous rupture of tympanic membrane, recurrence not specified [H66.002] Other Visit Diagnosis:TMJ tenderness, left [M26.622] Order(s):amoxicillin-clav ulanate potassium (AUGMENTIN) 875-125 mg per tabletTake 1 tablet by mouth two times a day for 7 days.Disp: 14 table (more content not included)... Normal [facility] ED Discharge Educationon ED Discharge Education Normal [facility] ED Patient Summaryon [address] [facility] Emergency Department Discharge Instructions [id number] [place] [address] (Patient Copy) Name: INDIA LM : 1975 Allergies: Diagnosis: Visit Date: 06/04/2023 19:32:15 Current Date Time: 06/04/2023 21:14:27 Address: [id number] [facility] [id number] Primary Care Provider: Name: FAMILY PHYSICIAN, [phone] Phone: Emergency Department Care Providers: Primary Physician: REX QUEZADA MD Thank you for choosing [facility] for your emergency care. You are very important to us. Our goal is to demonstrate our high quality medical care, and provide you with a very good patient experience. You may receive a survey about our service. Please take the time to complete the survey and return it so we can continue to enhance our service. Thank you again for allowing the [facility] Emergency Department to care for your medical needs. If you have questions about your care or follow up information please contact us at [phone]. Follow-Up Instructions LM MONACO has been given these follow-up instructions: Patient Education Materials LM MONACO has been given the following patient education materials: BEFORE YOU LEAVE Set up your [facility] [employer] account! [employer] is a secure, online health management tool that connects you to portions of your hospital-based electronic medical record, allowing you to see test results, manage appointments, access discharge care instructions and much more. You can access [employer] from a computer, tablet or smartphone. Enrollment/registration is required. If you do not have a [employer] account, please provide us with an email address before you leave so that we may set up an account for you. New to [employer]! You may now securely connect some of the health management apps you use (e.g., fitness trackers, dietary trackers, etc.) to your health record in [facility] [employer]. This new feature provides expanded access to your health and wellness data, which will help you and your care team make informed decisions about your health care. If you are interested in using a health management kalyan not currently connected to [employer], contact a [employer]er at [phone] or [email or web address] . We will determine if the kalyan meets the technical requirements to connect to [facility] [employer] and assure the security of your private health information. Medication Information LM MONACO has been given the following medication information: No Discharge Medications. Understanding your home medicine is important to keeping you healthy. If you are taking medications that are not on the preceding list, please call your doctor to see if you are to continue that medication. It is important that you do not skip or make up doses. If you are ordered an antibiotic, finish taking all the medicine, unless your doctor tells you otherwise. Call your doctor if you have questions or problems. Take the medicine list with you to all follow up appointments. If you or a loved one is struggling with a mental health or substance abuse issue, please call [facility] at [phone] or the National Suicide Prevention Lifeline at . INDIA Moore LALENA, have received the follow-up provider(s) list, medication information and patient education materials/instructions and have verbalized understanding. Patient Signature Date Time Provider Signature Date Time Normal [facility] ED Progress Noteon ED Progress Note lwot [id number] Normal [facility] ED Triage Adult-Texton 06-04 ED Triage Adult-Text ED Triage Entered O n: 06/04/2023 19:36 EST Performed On: 06/04/2023 19:35 EST by Moriah Cramer (As Of: 06/04/2023 19:36:23 EST) Diagnoses(Active) Neck pain Date: 06/04/2023 ; Diagnosis Type: Reason For Visit ; Confirmation: Confirmed ; Clinical Dx: Neck pain ; Classification: Medical ; Clinical Service: Emergency medicine ; Code: PNED ; Probability: 0 ; Diagnosis Code: [id number] (As Of: 06/04/2023 19:36:23 EST) Vitals/Ht/Wt Temperature Oral : 36.5 degC Pulse Rate : 79 bpm Respiratory Rate : 18 br/min Systolic Blood Pressure : 118 mmHg Diastolic Blood Pressure : 70 mmHg SpO2 : 96 % Oxygen Therapy : Room air Pain Symptoms : Yes Numeric Pain Scale : 8 = Severe Pain VAS Pain Scale Age : VAS (8 yrs & older) Height/Length Dosing : 162.56 cm(Converted to: 5.33 ft, 64.00 in) Weight Measured Type of Scale : Standing Scale Weight Dosing : 53.5 kg(Converted to: 1,887.157 oz, 117.947 lb) Body Mass Index Dosing : 20 Moriah Cramer - 06/04/2023 19:35 EST Normal [facility] JOSE MARTINOVon 05-29-2023 CNOV Office Visit ([facility] ) ----- LM MONACO ([id number]) 1975 F Date Time Provider Department 05/29/23 9:20 AM WENDY HEATON [facility] During your visit today, we recorded the following information about you: Temperature Pulse Respiration Blood pressure 97.8 degrees 83/minute 15/minute 97/65 Weight 53.5 kg Wendy Heaton PA-C 05/29/2023 9:42 AM Signed This note was created using [employer]un[employer]ter. Subjective Lm Monaco is a 48 year old female who presents with one month of left ear pain, congestion and post nasal drip. The ear pain is worsening x 2 days. She is taking Aleve with mild relief. No trauma to ear, swimming or airplane travel. Review of Systems Constitutional: Negative for chills and fever. HENT: Positive for congestion and ear pain. Negative for dental problem, ear discharge, sore throat and trouble swallowing. Respiratory: Negative for cough and shortness of breath. Cardiovascular: Negative for chest pain. Gastrointestinal: Negative for diarrhea and vomiting. Musculoskeletal: Negative for neck pain and neck stiffness. Skin: Negative for rash. Neurological: Negative for headaches. Objective BP 97/65 (BP Site: Right Arm, BP Position: Sitting, BP Cuff Size: Regular Adult) Pulse 83 Temp 36.6 ?C (97.8 ?F) (Temporal) Resp 15 Wt 53.5 kg (118 lb) BMI 19.85 kg/m? Physical Exam Vitals and nursing note reviewed. Constitutional: General: She is not in acute distress. Appearance: Normal appearance. She is not toxic-appearing. HENT: Head: Normocephalic and atraumatic. Right Ear: Tympanic membrane normal. Ears: Comments: Left TM with erythema and fluid level No otorrhea or canal swelling Right TM ok Nose: Congestion present. Mouth/Throat: Mouth: Mucous membranes are moist. Pharynx: No oropharyngeal exudate or posterior oropharyngeal erythema. Eyes: Conjunctiva/sclera: Conjunctivae normal. Skin: Findings: No rash. Neurological: Mental Status: She is alert. Assessment and Plan 1. Acute otitis media, left - ICD9: 382.9, ICD10: H66.92 - Will begin treatment with as per antibiotic as written, see orders - The patient should also be given OTC decongestants prn, OTC cough and cold meds as needed, warm salt water gargles, throat lozenges and/or OTC throat spray as needed, and nasal saline gtts and suction prn for the first 5-7 days of treatment. - Supportive care with plenty of fluids, rest, and analgesia prn. - Follow up in 3-5 days if symptoms persist or worsen. - FLUTICASONE PROPIONATE 50 MCG/ACTUATION NASAL SPRAY,SUSPENSION - AMOXICILLIN 875 MG TABLET MADDY Lux Chelsea E, PA-C 05/29/2023 9:40 AM Signed OTITIS MEDIA GENERAL INFORMATION: Otitis media is an infection of the middle ear. The middle ear sits behind the eardrum. This infection may be caused by a virus or bacteria and often follows a cold. Children often have repeat ear infections. Otitis media is not contagious. INSTRUCTIONS: 1. An antibiotic has been prescribed. It should be taken exactly as prescribed. Do not stop the medicine even if the symptoms go away. 2. Ugny-dwy-vykzpct pain medication may be taken or other pain medication as prescribed by the doctor. 3. Nothing should be placed in the ear unless instructed by your doctor. 4. The patient may return to school/daycare or work when the temperature is normal (98.6 F or 37 C). 5. The patient should not swim while the ear is infected. CONTACT YOUR DOCTOR IF YOU OR YOUR CHILD: 1. Does not feel better within 36 hours. 2. Develops a temperature over 102E F (39E C). 3. Starts vomiting or has diarrhea. 4. Develops drainage from the affected ear. 5. Has any new problem that may be related to the medicine prescribed. GO TO THE ED IF: 1. You or your child has a severe headache or pain around the ear. 2. You or your child notice swelling around the ear. 3. You or your child has a seizure (convulsion), twitching of the facial muscles, or passes out. 4. You or your child is dizzy, has a stiff neck, or cannot walk or talk normally. 5. Your child becomes more irritable or listless (not interested in his or her surroundings, does not get soothed by you holding him or her). Allergies As of Date: 05/29/2023 Noted Allergy Reaction FLAGYL (METRONIDAZOLE) 03/10/2023 10 - Anaphylaxis Date Reviewed: 05/29/2023 Reviewed by: Gerri Linares - Fully Assessed Reason for Visit: Ear Problem [38] Cmt: Left ear pain for about a month but the pain woke her up last night Primary Visit Diagnosis:Acute otitis media, left [H66.92] Order(s):amoxicillin (AMOXIL) 875 mg tabletTake 1 tablet by mouth two times a day for 7 days.Disp: 14 tabletRfl: 0 fluticasone (FLONASE) 50 mcg/actuation nasal sprayUse 1 Dennison in each nostril daily at bedtime.Disp: 9.9 mLRfl: 0 Prescriptions as of 05/29/2023 - amoxicillin (AMOXIL) 875 (more content not included)... Normal [facility] CNOVon 04-09-2023 CN Office Visit ([facility] ) ----- LM MONACO ([id number]) 1975 F Date Time Provider Department 04/09/23 9:30 AM DEVANTE GANDHI [facility] During your visit today, we recorded the following information about you: Temperature Pulse Respiration Blood pressure 99.4 degrees 96/minute 18/minute 86/58 Weight Height 53.7 kg 1.642 m Devante Gandhi DO 04/09/2023 2:24 PM Signed Urgent Care Note History of Present Illness:ddddf Lm Monaco is a 48 year old female who presents today for chief complaint: Cough (Achy feel like he's gonna pass out for 1 day. Stopped taking anti depressants a week ago . Feels dizzy ) Patient presents with complaint of cough that started last night. Dizziness started this morning. Feels like her face goes numb when she moves it. Feels it only when she moves her head. Feels like she will fall over. This has been pretty consistent since awakening. Associated with chills, and headache, mild nausea, and runny nose. Admits to a few episodes of diarrhea that have since resolved. No medications yet. Flu immunized. - Denies: fever, chills, headache, dizziness, nausea, vomiting, ear pain, difficulty breathing, abdominal pain. Review of Symptoms: Pertinent positives and negatives noted per HPI otherwise review of systems is negative. Past Medical History: No past medical history on file. No past surgical history on file. Current Outpatient Medications Medication Sig ARIPiprazole (ABILIFY) 30 mg tablet TAKE 1 TABLET BY MOUTH ONCE DAILY IN THE MORNING (Patient not taking: Reported on 04/09/2023) sertraline (ZOLOFT) 100 mg tablet Take 150 mg by mouth as directed. (Patient not taking: Reported on 04/09/2023) No current facility-administered medications for this visit. ALLERGIES Allergen Reactions Flagyl [Metronidazo* Anaphylaxis Objective: BP 86/58 Pulse 96 Temp (Src) 99.4 (Oral) Resp 18 Ht 5' 4.646 (1.64m) Wt 118 lb 6.2 oz (53.7kg) SpO2 96% BMI 19.92 kg/(m2). GENERAL: Appears nourished AND normally developed for his age. EYES: Head exam is unremarkable. No scleral icterus or orbital trauma noted. HEENT: Mucous membranes moist. Nasal turbinates are boggy and erythematous consistent with a URI. Not too much rhinorrhea. Throat is minimally erythematous without obvious evidence of strep throat. Post nasal drip. Neck is supple without prominent lymphadenopathy. LUNGS: Lungs are clear to auscultation. Some cough reported, but no respiratory distress at this time. CARDIAC: Rhythm is regular. No dysrhythmias or murmurs. ABDOMEN: Nontender with no obvious masses, and no peritoneal signs. EXTREMITIES: Nonedematous, with no obvious deformities. SKIN: Good color. No pallor. Warm/dry. No significant rashes. NEURO: No obvious neurological deficits, moves without evidence of cerebellar infarction. Assessment and Plan: ASSESSMENT/PLAN: 1. Viral illness - ICD9: 079.99, ICD10: B34.9 - Discussed viral etiology and rationale for treatment. - Symptomatic treatment with medication recommendations below - Supportive care with fluids and rest - COVID AND INFLUENZA A/B NAAT, ROUTINE Symptom management: Increase fluid intake and REST as much as possible Can try a antihistamine (ie: zytrec-cetirizine, Claritin, or Coretta) for allergy symptoms may be helpful daily for 5 days. Saline nasal spray or nasal steroid spray (ie: Flonase -fluticasone propionate) daily for five days. May use a cool mist or humidifier Steamy baths or showers can be helpful to moisten the airways Can take acetaminophen and/or motrin, as directed, for pain or fever, as directed Mucinex (guafenesin) may help manage mucus Frequent hand-washing with soap and water Can drink warm liquids/broth to soothe throat and thin secretions Parent/Guardian verbalized understanding of plan. PLEASE PROCEED TO NEAREST ED IF DEVELOPING: Any abrupt change in illness or concerning symptoms such as: fever greater than 102F which is not responding to Tylenol or Motrin, difficulty swallowing, shortness of breath, unable to tolerate oral intake due to nausea and vomiting, difficulty breathing, chest pain, seizure, or other concerns report to nearest Emergency Department. Advised to return if no improvement. Follow up with No primary care provider on file.. Discussed risks, benefits, alternatives, and potential side effects of medications. See patient instructions. DO Hiram Cali Colleen L, DO 04/09/2023 10:08 AM Signed Symptom management: Increase fluid intake and REST as much as possible Can try a antihistamine (ie: zytrec-cetirizine, Claritin, or Coretta) for allergy symptoms may be helpful daily for 5 days. Saline nasal spray or nasal steroid spray (ie: Flonase -fluticasone propionate) daily for five days. May use a cool mist or humidifier Steamy baths or showers can be helpful to m (more content not included)... Normal [facility] FLUABV + SARS-CoV-2 Pnl Resp DEEPA+prbon 04-09-2023 Influenza virus A and B RNA and SARS-CoV-2 (COVID-19) N gene panel DEEPA+probe (Resp) COVID 19 RESULT: Not detected The method used is RT-PCR or an equivalent NAAT method. Reference Range (the expected result in uninfected individuals): Not detected INFLUENZA A PCR: Detected INFLUENZA B PCR: Not detected Abnormal [facility] Comment on above: Performed By: #### [id number] ####[facility] LABCLIA [id number] [address] [facility] CNOVon 03-10-2023 CNOV Office Visit ([facility] ) ----- LM MONACO ([id number]) 1975 F Date Time Provider Department 03/10/23 10:45 AM SVITLANA FOSTER [facility] During your visit today, we recorded the following information about you: Temperature Pulse Respiration Blood pressure 97.9 degrees 75/minute 16/minute 99/62 Weight Height 52.2 kg 1.626 m Svitlana Foster APRN.CNP 03/10/2023 11:41 AM Signed This note was created using [employer]. Subjective HPI Lm Monaco is a 47 year old female who presents with c/o sore throat that started yesterday. Patient states she thought that she saw some white spots on her tonsils so she wanted to come and get checked for strep. She states it is painful to swallow. She reports associated body aches and overall not feeling well. No congestion, runny nose, cough, or fever. Patient states she has been drinking hot tea but has not taken any medications for symptoms. She reports COVID has been going around her workplace as well. Review of Systems Constitutional: Positive for fatigue. Negative for chills and fever. HENT: Positive for sore throat. Negative for congestion, ear pain, postnasal drip, rhinorrhea, trouble swallowing and voice change. Respiratory: Negative for cough. Gastrointestinal: Negative for diarrhea, nausea and vomiting. Musculoskeletal: Positive for myalgias. Skin: Negative for rash. Neurological: Negative for headaches. No past medical history on file. No past surgical history on file. ALLERGIES Allergen Reactions Flagyl [Metronidazo* Anaphylaxis Objective BP 99/62 (BP Site: Right Arm, BP Position: Sitting, BP Cuff Size: Regular Adult) Pulse 75 Temp 36.6 ?C (97.9 ?F) (Temporal) Resp 16 Ht 162.6 cm (5' 4) Wt 52.2 kg (115 lb) SpO2 99% BMI 19.74 kg/m? Physical Exam Constitutional: General: She is not in acute distress. Appearance: Normal appearance. She is not toxic-appearing. HENT: Head: Normocephalic and atraumatic. Right Ear: Tympanic membrane and ear canal normal. Left Ear: Tympanic membrane and ear canal normal. Nose: Nose normal. Mouth/Throat: Mouth: Mucous membranes are moist. Pharynx: Uvula midline. Posterior oropharyngeal erythema (with cobblestoning) present. No pharyngeal swelling, oropharyngeal exudate or uvula swelling. Tonsils: No tonsillar exudate or tonsillar abscesses. 1+ on the right. 1+ on the left. Comments: No trismus, normal tolerance of secretions Eyes: Extraocular Movements: Extraocular movements intact. Conjunctiva/sclera: Conjunctivae normal. Cardiovascular: Rate and Rhythm: Normal rate and regular rhythm. Heart sounds: Normal heart sounds. Pulmonary: Effort: Pulmonary effort is normal. Breath sounds: Normal breath sounds. Musculoskeletal: General: Normal range of motion. Skin: General: Skin is warm and dry. Neurological: General: No focal deficit present. Mental Status: She is alert and oriented to person, place, and time. Psychiatric: Mood and Affect: Mood normal. Assessment and Plan 1. Sore throat - ICD9: 462, ICD10: J02.9 (primary diagnosis) - Group A strep molecular testing negative - STREP A MOLECULAR (POC) 2. Viral pharyngitis - ICD9: 462, ICD10: J02.9 - Discussed viral etiology and rationale for tx - COVID/FLU/RSV test ordered and performed based on patient's current symptoms and risk - Encouraged use of Mychart for results in 24-48hours - Advised on CDC isolation guidelines - Stay away from other household areas as much as possible - Wear a mask when in the same room as others - Rest/Fluids - OTC tylenol/motrin, cough/cold medications for symptom control - To ER if any chest pain, troubles breathing, drooling, troubles swallowing, swelling of your throat especially one side, neck pain/stiffness, rash, abdominal pain, intractable nausea vomiting or diarrhea, bloody or dark urine stool or vomit, pain or swelling behind ear(s), severe headache, dizziness/lightheadedness , fevers/chills, or worsening of symptoms whatsoever. - Patient verbalizes understanding and is comfortable with plan of care - COVID AND INFLUENZA A/B AND RSV NAAT, ROUTINE JOSE Matthews Kaleigh, APRN.CNP 03/10/2023 11:27 AM Signed Your sore throat is likely viral in nature- at this time antibiotics are not indicated Use salt water gargles and throat lozenges for comfort Plenty of fluids and rest Tylenol or Ibuprofen as needed for pain Good hand hygiene, do not share cups or drinks/utensils with others COVID/FLU/RSV testing has been performed and I recommend signing up for [facility] mychart to get results KEVIN To ER if any chest pain, troubles breathing, drooling, troubles swallowing, swelling of your throat especially one side, neck pain/stiffness, rash, abdominal pain, intractable nausea vomiting or diarrhea, bloody or dark urine stool or vomit, pain or swelling behind (more content not included)... Normal [facility] COVID AND INFLUENZA A/B AND RSV NAAT, ROUTINEon 03-10-2023 SARS-CoV-2 (COVID-19) RNA DEEPA+probe Ql (Unsp spec) COVID 19 RESULT: Not detected The method used is RT-PCR or an equivalent NAAT method. Reference Range (the expected result in uninfected individuals): Not detected INFLUENZA A PCR: Not detected INFLUENZA B PCR: Not detected RSV PCR: Not detected Normal [facility] Comment on above: Performed By: #### C VFLRS ####[facility] LABCLIA [id number] [facility] [place] [id number] [place] XR FEMUR RIGHT 2+ VIEWS (STA NDARD)on 04-18-2022 XR FEMUR RIGHT 2+ VIEWS (STANDARD) EXAMINATION: ONE XRAY VIEW OF THE PELVIS AND TWO XRAY VIEWS RIGHT HIP; TWO XRAY VIEWS OF THE RIGHT FEMUR 04/18/2022 4:14 pm COMPARISON: None. HISTORY: ORDERING SYSTEM PROVIDED HISTORY: Right hip pain; TECHNOLOGIST PROVIDED HISTORY: Illness/Other Acuity: Acute Reason for Exam: nki Cancer History: Surgery, Radiation History: Type of Encounter: Initial Additional signs and symptoms: ; ORDERING SYSTEM PROVIDED HISTORY: Thigh pain; TECHNOLOGIST PROVIDED HISTORY: Illness/Other Acuity: Acute Reason for Exam: nki Cancer History: Surgery, Radiation History: Type of Encounter: Initial Additional signs and symptoms: FINDINGS: There is no evidence of acute fracture. There is normal alignment. No acute joint abnormality. No focal osseous lesion. No focal soft tissue abnormality. IMPRESSION: No acute osseous abnormality. Workstation ID: [id number] Dictated by: JAK FELICIANO on SatApr 18, 2022 4:37:20 PM EST Transcribed by: JAK FELICIANO on SatApr 18, 2022 4:37:20 PM EST Finalized by: JAK FELICIANO on SatApr 18, 2022 4:37:20 PM EST Normal [facility] Comment on above: Order Comment: Injur y/Trauma or Illness?:Illness/Other see hip done same time How long have you had these symptoms (acute/chronic)?:Acute Reason for exam?:nki History of cancer?: Surgeries, chemotherapy, or radiation?: Type of Exam?:Initial Additional signs and symptoms?: XR HIP RIGHT WITH PELVIS 2-3 VIEWS (ROUTINE)on 04-18-2022 XR HIP RIGHT WITH PELVIS 2-3 VIEWS (ROUTINE) EXAMINATION: ONE XRAY VIEW OF THE PELVIS AND TWO XRAY VIEWS RIGHT HIP; TWO XRAY VIEWS OF THE RIGHT FEMUR 04/18/2022 4:14 pm COMPARISON: None. HISTORY: ORDERING SYSTEM PROVIDED HISTORY: Right hip pain; TECHNOLOGIST PROVIDED HISTORY: Illness/Other Acuity: Acute Reason for Exam: nki Cancer History: Surgery, Radiation History: Type of Encounter: Initial Additional signs and symptoms: ; ORDERING SYSTEM PROVIDED HISTORY: Thigh pain; TECHNOLOGIST PROVIDED HISTORY: Illness/Other Acuity: Acute Reason for Exam: nki Cancer History: Surgery, Radiation History: Type of Encounter: Initial Additional signs and symptoms: FINDINGS: There is no evidence of acute fracture. There is normal alignment. No acute joint abnormality. No focal osseous lesion. No focal soft tissue abnormality. IMPRESSION: No acute osseous abnormality. Workstation ID: [id number] Dictated by: JAK FELICIANO on SatApr 18, 2022 4:37:20 PM EST Transcribed by: JAK FELICIANO on SatApr 18, 2022 4:37:20 PM EST Finalized by: JAK FELICIANO on SatApr 18, 2022 4:37:20 PM EST [facility] Comment on above: Order Comment: Injur y/Trauma or Illness?:Illness/Other How long have you had these symptoms (acute/chronic)?:Acute Reason for exam?:nki History of cancer?: Surgeries, chemotherapy, or radiation?: Type of Exam?:Initial Additional signs and symptoms?: Final Surgical Pathology Rep [facility] 06-02-2020 Final Surgical Pathology Report . Pathology Reports Accession: Collected Date/Time: Received Date/Time: Pathologist: [id number] 05/31/2020 17:00 EST 06/01/2020 08:58 EST MD TAWNYA YOUNG Final Surgical Pathology Report DIAGNOSIS: VAGINAL BIOPSY - SQUAMOUS PAPILLOMA. CLINICAL INFORMATION: SKIN TAG SPECIMEN: A VAGINAL BIOPSY GROSS DESCRIPTION: A. Received in formalin, labeled with the patients name, Case #[id number], and vaginal biopsy is 1 pedunculated skin excision measuring 0.7 x 0.3 x 0.2 cm. Excision margin inked black. TS -1. Dictated by CORIE WILEY MICROSCOPIC DESCRIPTION: Slides reviewed. Electronically Signed by Pathology Report verified by [facility] Electronically signed by TAWNYA YOUNG MD Sign out Date: 06/02/2020 13:14 Performing Lab: [facility], [address] [place] [address] ([place]) Comment on above: Performed By: #### S PFR #### [address] [address] HPVon 05-25-2020 HPV Interp Normal See Inter HPVN [facility] ([place]) Comment on above: Order Comment: Order placed by AP_HPV_ORDER rule from [id number] Result Comment: High Risk HPV Typing: NEGATIVE HPV types 16, 18, 31, 33, 35, 39, 45, 51, 52, 56, 58, 59, 66 and 68 DNA were undetectable or below the pre-set threshold. The valeria High-Risk HPV DNA Test is not intended for use as a screening device for Pap normal women under age 30 and is not intended to substitute for regular Pap screening. The valeria High-Risk HPV DNA Test is designed to augment existing methods for the detection of cervical disease and should be used in conjunction with clinical information derived from other diagnostic and screening tests, physical examinations and full medical history in accordance with appropriate patient management procedures. NOTE: A negative result does not preclude the presence of HPV infection because results depend on adequate specimen collection, absence of inhibitors and sufficient DNA to be detected. See [facility] HPVN Performed By: #### H PV #### [place] [address] HPV Source Cervix Normal [facility] ([place]) Comment on above: Order Comment: Order placed by AP_HPV_ORDER rule from [id number] Performed By: #### H PV #### [place] [address] [employer] Cytology Reporton 2020 [employer] Cytology Report . Pathology Reports Accession: Collected Date/Time: Received Date/Time: Pathologist: [id number] 05/17/2020 14:14 EST 05/17/2020 18:00 EST [employer]bound [employer] Cytology Report SPECIMEN: Specimen Description: Liquid Prep w/ HPV Specimen: Cervical/Endocervical Screening or Diagnostic: Screening RELEVANT HISTORY: LMP: not given SPECIMEN ADEQUACY: SATISFACTORY FOR EVALUATION ENDOCERVICAL/TRANSFORMATI ONAL ZONE COMPONENT ABSENT/INSUFFICIENT INTERPRETATION/RESULTS: NEGATIVE FOR INTRAEPITHELIAL LESION OR MALIGNANCY ADJUNCTIVE TESTING: HIGH RISK HPV DNA TESTING ORDERED, REPORT TO FOLLOW UNDER SEPARATE COVER ORGANISMS: SHIFT IN ROSLYN CONSISTENT WITH BACTERIAL VAGINOSIS. COMMENT: This Pap Test was analyzed by the [employer] ThinPrep Test Imaging System. Due to technical imaging issues or the physical propertied of the specimen slide, a manual screen was indicated. Electronically Signed by Pathology report verified by [facility] Screened by: GL Electronically signed by Gabi Reynaga Sign-Out Date: 05/20/2020 09:17 Performing Lab: [facility], [address] [place] [address] States Disclaimer The Pap test is a screening test for cervical cancer. As evidenced by published data, it is subject to both inherent false negative and false positive results. Your patient's results should be interpreted in context with pertinent clinical history including gynecological examination. Normal [facility] ([place]) Comment on above: Performed By: #### G YCR #### [place] [address] Robert 03-05-2020 EMERGENCY PHYSICIAN REPORT This is a preliminary report only, as the practitioner review and authentication has not occurred. [facility] ER PHYSICIAN ASSESSMENT DEMOGRAPHICS [facility] Patient: LM KAM Sex: F : 1975 Age: 44 yr Account No: [id number] Registration Date: 20:12 03/04/2020 Address: [address] [place] [address] Address: [place] [address] REGISTRATION ED Number: [id number] Marital Status: S Financial Class: CAIDHMO TRIAGE Priority: 3 - Urgent Complaint: Pelvic Pain Stated Complaint: pelvic pain starting 1930, hx of ovarian cysts Arrival Date: 03/04/2020 20:12 Triage Date: 03/04/2020 20:17 Mode of Arrival: Walk-In Transfer From: * Home WC: N Language: Dutch Transport: Ambulatory/Walk in BED B24 In: 03/04/2020 20:25:53 03/04/2020 20:25:53 CELESTINO [facility] PATIENT NAME: LM KAM [address] [facility] [address] MEDICAL REC #: [id number] [place] [address] EMERGENCY DEPARTMENT REPORT EMERGENCY DEPARTMENT PHYSICIAN B24 (Removed From) Out: 03/04/2020 20:27:03 03/04/2020 20:27:03 CELESTINO D47 In: 03/04/2020 21:28:42 03/04/2020 21:28:42 MMWB D47 (Removed From) Out: 03/04/2020 21:34:20 03/04/2020 21:34:20 JBK PROVIDERS TRIAGE HISTORY ALLERGIES Allergic To: newbane - pass out 03/04/2020 20:24 CELESTINO Allergic To: Flagyl - Anaphylactic Reaction 03/04/2020 20:24 CELESTINO Allergic To: Toradol - bladder pain 03/04/2020 20:24 CELESTINO Allergic To: Tramadol - seizure 03/04/2020 20:24 CELESTINO CURRENT MEDS Name: ZOLOFT 200MG TABLET - PO 03/04/2020 20:24 CELESTINO Name: ABILIFY 20MG TABLET - PO 03/04/2020 20:24 CELESTINO Name: KLONOPIN 0.5MG TABLET - PO prn 03/04/2020 20:24 CELESTINO Name: per pt 03/04/20 03/04/2020 20:24 CELESTINO ILLNESS Illness: Bipolar Disorder 03/04/2020 20:24 CELESTINO Illness: degenerative hip disease 03/04/2020 20:24 CELESTINO Illness: Carpal Tunnel 03/04/2020 20:24 CELESTINO Illness: Arthritis 03/04/2020 20:24 CELESTINO [facility] PATIENT NAME: LM KAM [address] [facility] [address] MEDICAL REC #: [id number] [place] [address] EMERGENCY DEPARTMENT REPORT EMERGENCY DEPARTMENT PHYSICIAN Illness: Ovarian Cysts 03/04/2020 20:24 CELESTINO PAST SURGERY HIST Surgery: Tubal Ligation 2004 03/04/2020 20:24 CELESTINO Surgery: back sugery L3-L4 03/04/2020 20:24 CELESTINO Surgery: Hysterectomy-partial 03/04/2020 20:24 CELESTINO Surgery: uterine ablation 03/04/2020 20:24 CELESTINO PAST SOCIAL HIST Social History: Behavior age appropriate 03/04/2020 20:24 CELESTINO Social History: Communicates without difficulty 03/04/2020 20:24 CELESTINO Social History: Lives with family or significant other 03/04/2020 20:24 CELESTINO Social History: Recreational Drugs - None 03/04/2020 20:24 CELESTINO Social History: Alcohol - Occasional-once every few days 03/04/2020 20:24 CELESTINO Social History: Smoker-1 PPD 03/04/2020 20:24 CELESTINO Social History: Denies Domestic Violence 03/04/2020 20:24 CELESTINO Social History: Denies thoughts of self harm. 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 MEDICAL REC #: [id number] [place] [address] EMERGENCY DEPARTMENT REPORT EMERGENCY DEPARTMENT PHYSICIAN Immunization: Flu Vaccine-yes 03/04/2020 20:24 CELESTINO NURSING ASSESSMENT ASSESSMENT NOTES TREATMENT MEDICATIONS IV I AND O VITALS VS-ROUTINE Time: 03/04/2020 20:17 B/P: 95/51 - Right Upper Arm - Lying - Machine Pulse: 72 - Monitor Resp: 18 Sa02: 95 Room Air Temp: 97.90 F - Oral 03/04/2020 20:24 CELESTINO VS-Pain Time: 03/04/2020 20:17 Pain Level: 7 03/04/2020 20:24 CELESTINO VS-GCS Time: 03/04/2020 20:17 Visual: 4 Verbal: 5 Motor: 6 GCS Total: 15 03/04/2020 20:24 CELESTINO VS-HT/WT Time: 03/04/2020 20:17 Ht: 162.5 cm Stated Weight: 56.3 kg Stated 03/04/2020 20:24 CELESTINO VS-Visual Time: 03/04/2020 20:17 03/04/2020 20:24 CELESTINO VS-FHT Time: 03/04/2020 20:17 03/04/2020 20:24 CELESTINO VS-Notes Time: 03/04/2020 20:17 map 64 baseline BP per pt 03/04/2020 20:24 CELESTINO [facility] PATIENT NAME: LM KAM [address] [facility] [address] MEDICAL REC #: [id number] [place] [address] EMERGENCY DEPARTMENT REPORT EMERGENCY DEPARTMENT PHYSICIAN ORDERS LBE 03/04/2020 22:31 N/A Ordered: 03/04/2020 22:31 By ANH JIMENEZ Reviewed: 03/04/2020 22:31 By ANH JIMENEZ DISCHARGE Diagnosis: LWT 0 03/04/2020 22:31 Disposition: Time: 03/04/2020 22:30 By: ANH JIMENEZ Discharge Time: 03/04/2020 22:30 Type: LBE Condition: LBE Concurred: 03/04/2020 22:31 By: SHARON no answer 2137 and 2227 Referral: 03/04/2020 22:31 MMWB PRESCRIPTIONS CHARGES SIGNATURE JO-ANN JORDAN RN JBK MO BASILIO RN CELESTINO JIMEENZ MEDIC MMWB [facility] PATIENT NAME: LM KAM [address] [facility] [address] MEDICAL REC #: [id number] [place] [address] EMERGENCY DEPARTMENT REPORT EMERGENCY DEPARTMENT PHYSICIAN Normal [facility] VAG SCREEN DNA PROBEon 12-26 KATHERIN DIRECT PROBE Normal [facility] Comment on above: Result Comment: NEGA TIVE Performed at [facility], [address], [address], [place] [address] Performed By: #### B VAG #### [facility] [address] [address] GARDNERELLA VAG. Positive Abnormal NEG [facility] Comment on above: Performed By: #### B VAG #### [employer] [facility] [address], [address] [address] TRICHOMONAS VAG. Negative Normal NEG [facility] Comment on above: Performed By: #### B VAG #### [place] [facility] [address] [address] UA-REFLEX TO CULTUREon 12-24 BACT Negative [facility] Comment on above: Performed By: #### U ACUL #### [facility] [address] [place] [address] CRYSTAL [facility] Comment on above: Result Comment: CA O XAL MODERATE Performed By: #### U ACUL #### [facility] [address] [place] [address] MICROSCOPIC AUTOMATIC MICROSCOPI C URINES [facility] Comment on above: Performed By: #### U ACUL #### [facility] [address] [place] [address] RBC 2 /HPF Normal 0-3 [facility] Comment on above: Performed By: #### U ACUL #### [facility] [address] [place] [address] URINE HYALINE CAST 6 /LPF [facility] Comment on above: Performed By: #### U ACUL #### [facility] [address] [place] [address] URINE SQUAMOUS EPI MODERATE Normal [facility] Comment on above: Performed By: #### U ACUL #### [facility] [address] [place] [address] WBC 1 /HPF Normal 0-3 [facility] Comment on above: Performed By: #### U ACUL #### [facility] [address] [place] [address] Bacteria identified Cx Nom (U) [facility] Comment on above: Result Comment: CULT URE NOT INDICATED Performed at [facility] [address] [place] [address] Performed By: #### U ACUL #### [facility] [address] [place] [address] BILI Negative Normal [facility] Comment on above: Performed By: #### U ACUL #### [facility] [address] [place] [address] BLOOD Negative Normal [facility] Comment on above: Performed By: #### U ACUL #### [facility] [address] [place] [address] Clarity (U) CLOUDY [facility] Comment on above: Performed By: #### U ACUL #### [facility] [address] [place] [address] Color (U) ORANGE Normal [facility] Comment on above: Performed By: #### U ACUL #### [facility] [address] [place] [address] GLUC Negative Normal NEG [facility] Comment on above: Performed By: #### U ACUL #### [facility] [address] [place] [address] KET SMALL Abnormal NEG [facility] Comment on above: Performed By: #### U ACUL #### [facility] [address] [place] [address] LEUK Negative Normal NEG [facility] Comment on above: Performed By: #### U ACUL #### [facility] [address] [place] [address] NIT Negative Normal NEG [facility] Comment on above: Performed By: #### U ACUL #### [facility] [address] [place] [address] pH (U) 5.5 [pH] Normal 4.6-8.0 [facility] Comment on above: Performed By: #### U ACUL #### [facility] [address] [place] [address] PROT Negative Normal NEG [facility] Comment on above: Performed By: #### U ACUL #### [facility] [address] [place] [address] SP GRAV,URINE 1.023 Normal 1.005-1.030 [facility] Comment on above: Performed By: #### U ACUL #### [facility] [address] [place] [address] URO NORMAL Normal 0-1.0 [facility] Comment on above: Performed By: #### U ACUL #### [facility] [address] [place] [address] CBC with Diffon 05-13-2019 AB IMMATURE NEUT 0.03 K/UL Normal 0.0-0.1 [facility] Comment on above: Performed By: #### C BCD #### [facility] [address] [place] [address] ABS BASO 0.03 K/UL Normal 0.00-0.22 [facility] Comment on above: Performed By: #### C BCD #### [facility] [address] [place] [address] ABS EOS 0.14 K/UL Normal 0-0.45 [facility] Comment on above: Performed By: #### C BCD #### [place] [id number] [place] [address] ABS NEUTROPHILS 3.60 K/UL Normal 1.8-7.7 [facility] Comment on above: Performed By: #### C BCD #### [place] [address] [place] [address] ABS.NEUT.CALCULATED 3.60 K/UL Normal [facility] Comment on above: Result Comment: Perf ormed at [facility] [place] [address],[place] [address] Performed By: #### C BCD #### [place] [address] [place] [address] Basophils/100 WBC (Bld) 0.40 % Normal 0-1 [facility] Comment on above: Performed By: #### C BCD #### [place] [address] [place] [address] DIFF TYPE AUTO DIFF Normal [facility] Comment on above: Performed By: #### C BCD #### [place] [address] [place] [address] Eosinophils/100 WBC (Bld) 2.00 % Normal 0-3 [facility] Comment on above: Performed By: #### C BCD #### [facility] [address] [place] [address] Erythrocyte distribution width (RBC) [Ratio] 13.7 % Normal 11.7-15.0 [facility] Comment on above: Performed By: #### C BCD #### [facility] [address] [place] [address] Hematocrit (Bld) [Volume fraction] 43.9 % Normal 36-44 [facility] Comment on above: Performed By: #### C BCD #### [place] [address] [place] [address] Hemoglobin (Bld) [Mass/Vol] 15.2 g/dL High 12.0-15.0 [facility] Comment on above: Performed By: #### C BCD #### [place] [address] [place] [address] Lymphocytes (Bld) [#/Vol] 2.72 10*3/uL Normal 1.2-3.2 [facility] Comment on above: Performed By: #### C BCD #### [place] [address] [place] [address] Lymphocytes/100 WBC (Bld) 38.60 % Normal 20-40 [facility] Comment on above: Performed By: #### C BCD #### [place] [address] [place] [address] MCH (RBC) [Entitic mass] 30.6 pg Normal 26-34 [facility] Comment on above: Performed By: #### C BCD #### [place] [address] [place] [address] MCHC (RBC) [Mass/Vol] 34.6 % Normal 31-37 [facility] Comment on above: Performed By: #### C BCD #### [place] [address] [place] [address] MCV (RBC) [Entitic vol] 88.5 fL Normal 80-100 [facility] Comment on above: Performed By: #### C BCD #### [place] [address] [place] [address] MEAN PLT VOL 9.7 CU Normal 7.0-12.6 [facility] Comment on above: Performed By: #### C BCD #### [place] [address] [place] [address] Monocytes (Bld) [#/Vol] 0.53 10*3/uL Normal 0-0.8 [facility] Comment on above: Performed By: #### C BCD #### [place] [address] [place] [address] Monocytes/100 WBC (Bld) 7.50 % Normal 0-8 [facility] Comment on above: Performed By: #### C BCD #### [place] [id number] [place] [address] Neutrophils/100 WBC (Bld) 0.40 % Normal 0.0-1.0 [facility] Comment on above: Performed By: #### C BCD #### [place] [id number] [place] [address] Neutrophils/100 WBC (Bld) 51.10 % Normal 50-70 [facility] Comment on above: Performed By: #### C BCD #### [place] [address] [place] [address] NRBC'S 0 /100 WBC Normal 0 [facility] Comment on above: Performed By: #### C BCD #### [place] [address] [place] [address] Platelets (Bld) [#/Vol] 204 10*3/uL Normal 150-450 [facility] Comment on above: Performed By: #### C BCD #### [place] [address] [place] [address] RBC (Bld) [#/Vol] 4.96 M/UL High 4.0-4.9 [facility] Comment on above: Performed By: #### C BCD #### [place] [address] [place] [address] RDW-SD 44.1 FL Normal 37.0-54.0 [facility] Comment on above: Performed By: #### C BCD #### [place] [address] [place] [address] WBC (Bld) [#/Vol] 7.1 10*3/uL Normal 4.5-11.0 [facility] Comment on above: Performed By: #### C BCD #### [place] [address] [place] [address] COMPREHENSIVE METABOLIC PANE [facility] 05-13-2019 Albumin [Mass/Vol] 4.8 g/dL Normal 3.5-5.0 [facility] Comment on above: Performed By: #### C CASINO ACCOUNTANT #### [place] [address] [place] [address] Albumin/Globulin [Mass ratio] 2.1 {ratio} Normal 1.5-3.0 [facility] Comment on above: Performed By: #### C CASINO ACCOUNTANT #### [facility] [address] [place] [address] ALP [Catalytic activity/Vol] 64 U/L Normal 35-125 [facility] Comment on above: Performed By: #### C CASINO ACCOUNTANT #### [facility] [address] [place] [address] ALT [Catalytic activity/Vol] 8 U/L Normal 5-40 [facility] Comment on above: Performed By: #### C CASINO ACCOUNTANT #### [facility] [address] [place] [address] Anion gap [Moles/Vol] 8 mmol/L Normal 0-19 [facility] Comment on above: Performed By: #### C CASINO ACCOUNTANT #### [place] [id number] [place] [address] AST [Catalytic activity/Vol] 13 U/L Normal 5-40 [facility] Comment on above: Performed By: #### C CASINO ACCOUNTANT #### [facility] [address] [place] [address] Bilirubin [Mass/Vol] 0.3 mg/dL Normal 0.1-1.2 [facility] Comment on above: Performed By: #### C CASINO ACCOUNTANT #### [facility] [address] [place] [address] Calcium [Mass/Vol] 9.7 mg/dL Normal 8.5-10.4 [facility] Comment on above: Performed By: #### C CASINO ACCOUNTANT #### [facility] [address] [place] [address] Chloride [Moles/Vol] 102 mmol/L Normal 97-107 [facility] Comment on above: Performed By: #### C CASINO ACCOUNTANT #### [facility] [address] [place] [address] CO2 [Moles/Vol] 26 mmol/L Normal 24-31 [facility] Comment on above: Performed By: #### C CASINO ACCOUNTANT #### [facility] [address] [place] [address] Creatinine [Mass/Vol] 0.8 mg/dL Normal 0.4-1.6 [facility] Comment on above: Performed By: #### C CASINO ACCOUNTANT #### [place] [id number] [place] [address] GFR/1.73 sq M.predicted MDRD (S/P/Bld) [Vol rate/Area] 83 mL/min/1.73 m2 Normal [facility] Comment on above: Result Comment: GFR ml/min/1.73m2 Stage ----- 90 1 60-89 2 30-59 3 15-29 4 <15 5 For -Americans, multiply EGFR result by 1.210 Calculation not validated for patients under 18 years of age. Performed at [place] [address] [place] [address],[place] [address] Performed By: #### C CASINO ACCOUNTANT #### [place] [address] [place] [address] Globulin (S) [Mass/Vol] 2.3 g/dL Normal 1.9-3.7 [facility] Comment on above: Performed By: #### C CASINO ACCOUNTANT #### [place] [address] [place] [address] Glucose [Mass/Vol] 89 mg/dL Normal 65-99 [facility] Comment on above: Performed By: #### C CASINO ACCOUNTANT #### [place] [address] [place] [address] Potassium [Moles/Vol] 4.0 mmol/L Normal 3.4-5.1 [facility] Comment on above: Performed By: #### C CASINO ACCOUNTANT #### [place] [address] [place] [address] [place] [address] Protein [Mass/Vol] 7.1 g/dL Normal 5.9-7.9 [facility] Comment on above: Performed By: #### C CASINO ACCOUNTANT #### [place] [id number] [place] [address] Sodium [Moles/Vol] 136 mmol/L Normal 133-145 [facility] Comment on above: Performed By: #### C CASINO ACCOUNTANT #### [place] [address] [place] [address] Urea nitrogen [Mass/Vol] 11 mg/dL Normal 8-25 [facility] Comment on above: Performed By: #### C CASINO ACCOUNTANT #### [place] [address] [address] [address] Urea nitrogen/Creatinine [Mass ratio] 13.8 RATIO Normal 8-21 [facility] Comment on above: Performed By: #### C CASINO ACCOUNTANT #### [place] [address] [place] [address] THROAT STREP CULTUREon 04-16 THROAT STREP CULTURE Specimen source XXX : THROAT Service Cmnt XXX-Imp: NONE Bacteria identified: NEGATIVE FOR GROUP A BETA STREP Performed at [address] [address] : FINAL 04/16/2019 [facility] Comment on above: Performed By: #### S TRP #### Main Laboratory [address] [address] HIP BI MIN 2 VIEW EACH W PEL VISon 03-24-2019 HIP BI MIN 2 VIEW EACH W PELVIS *FINAL Date of Service: 03/24/2019 14:11 Adm #: [id number] Reading Dr:REDDY VALDEZ Signoff Dr: REDDY VALDEZ PROCEDURE: HIP BI MIN 2 VIEW EACH W PELVIS - AXR 0125 REASON FOR EXAM: left hip pain RESULT: HIP BI MIN 2 VIEW EACH W PELVIS: 03/24/2019 2:11 PM CLINICAL HISTORY: 44-year-old woman with bilateral hip pain. No known injury. COMPARISON: None available. TECHNIQUE: Lateral views of each hip and AP view of the pelvis were obtained. FINDINGS: Pelvis: No evidence of pelvic fracture. Mild degenerative changes in the lower lumbar spine. Right hip: No evidence of right hip fracture or dislocation. Mild joint space narrowing. Left hip: No evidence of left hip fracture or dislocation. Mild joint space narrowing. IMPRESSION: Mild degenerative changes in both hips without evidence of fracture or dislocation. [id number] This report has been produced using speech recognition. Original Interpreting Physician: REDDY VALDEZ MD Original Transcribed by/Date: PSCB Mar 24 2019 4:11P Original Electronically Signed by/Date: REDDY VALDEZ MD Mar 24 2019 4:11P Addendum Interpreting Physician: Addendum Transcribed by/Date: NO ADDENDUM Addendum Electronically Signed by/Date: [facility] SPINE LUMBOSACRAL 2 VIEWon 1 05-25-2018 SPINE LUMBOSACRAL 2 VIEW *FINAL Date of Service: 03/24/2019 14:11 Adm #: [id number] Reading Dr:REDDY Li Dr: REDDY VALDEZ PROCEDURE: SPINE LUMBOSACRAL 2 VIEW - AXR 0032 REASON FOR EXAM: left hip pain RESULT: CLINICAL HISTORY: 44-year-old woman with lower back and left hip pain. Patient had L3-L4 surgery in 2005. COMPARISON: None available. TECHNIQUE: Four views of the lumbar spine were performed. FINDINGS: Vertebral body heights are preserved. No compression deformity detected. There appears to be a transitional vertebral body at the lumbosacral junction. There is 6 mm retrolisthesis of L4 and L5. There is also mild retrolisthesis of L3 on L4. There is facet hypertrophy of the lower lumbar spine. Small anterior osteophytes noted at L4-L5 and L5-S1. Moderate disc space narrowing at L5-S1. IMPRESSION: Multilevel moderate degenerative changes in the lumbar spine, as detailed above. [id number] This report has been produced using speech recognition. Original Interpreting Physician: REDDY VALDEZ MD Original Transcribed by/Date: PSCB Mar 24 2019 4:12P Original Electronically Signed by/Date: REDDY VALDEZ MD Mar 24 2019 4:12P Addendum Interpreting Physician: Addendum Transcribed by/Date: NO ADDENDUM Addendum Electronically Signed by/Date: [facility] SPINE CERVICAL 4 OR 5 VIEWon 03-17-2019 SPINE CERVICAL 4 OR 5 VIEW *FINAL Date of Service: 03/17/2019 11:07 Adm #: [id number] Reading Dr:REDDY Li Dr: REDDY VALDEZ PROCEDURE: SPINE CERVICAL 4 OR 5 VIEW - AXR 0113 REASON FOR EXAM: cervicalgia RESULT: SPINE CERVICAL 4 OR 5 VIEW: 03/17/2019 11:07 AM CLINICAL HISTORY: 43-year-old woman with chronic neck pain especially on the right side radiating down the right arm. No recent injury. COMPARISON: None available. TECHNIQUE: Five views of the cervical spine were performed. FINDINGS: C1 through C7 are demonstrated on the lateral view.? There is no prevertebral soft tissue swelling. No compression deformity detected. There is mild to moderate disc space narrowing at C5-C6 with small anterior osteophytes. Smaller anterior osteophytes identified at C3-C4 and C6-C7. Mild uncovertebral joint hypertrophy noted at C5-C6 with mild neural foraminal narrowing. Imaged lung apices are grossly clear. IMPRESSION: Mild to moderate degenerative changes in the cervical spine, as detailed above. [id number] This report has been produced using speech recognition. Original Interpreting Physician: REDDY VALDEZ MD Original Transcribed by/Date: PSCB Mar 17 2019 11:21A Original Electronically Signed by/Date: REDDY VALDEZ MD Mar 17 2019 11:21A Addendum Interpreting Physician: Addendum Transcribed by/Date: NO ADDENDUM Addendum Electronically Signed by/Date: [facility] EMERGENCY DEPARTMENT REPORTo n 05-04-2018 EMERGENCY [place] [address] HEALTH INFORMATION MANAGEMENT EMERGENCY DEPARTMENT REPORT Patient: LM KAM CHANDLER ORELLANA M.D. [id number] [age] F Status: DEP ER ED Date of Service: 05/03/18 ADDENDUM The patient has signs and symptoms here of a viral syndrome. Her blood work shows normal potassium. She was given some fluids here. No concerns for carbon monoxide exposure or poisoning. IMPRESSION Viral syndrome. 05/04/18 1734 CHANDLER ORELLANA M.D. cc: MILENA COKER M.D.; CHANDLER ORELLANA M.D. << Signature on File>> Reported By: CHANDLER ORELLANA M.D. Signed By: CHANDLER ORELLANA M.D. Tests performed at: [address] [address] [facility] EMERGENCY [place] [address] HEALTH INFORMATION MANAGEMENT EMERGENCY DEPARTMENT REPORT Patient: ML KAM MARK Krista Avendano [id number] [age] F Status: [facility] ER ED Date of Service: 05/03/18 CHIEF COMPLAINT Weakness, weight loss, respiratory symptoms. HISTORY OF PRESENT ILLNESS This is a 43-year-old white female who has been sick for a week. She states she has had some sinus-like symptoms. She states that those are actually improving. She coughed up some mucus last night and feels this is better. She has some postnasal drainage but her real reason for being here is just lost weight and feels very weak, wondered if her potassium was low, which it had been in the past. She has had a lot of myalgias to start. Did not have a fever. No other complaints. Myalgias seemed some better. ALLERGIES Allergies to metronidazole, Toradol, tramadol, Nubain. SOCIAL HISTORY The patient is single. Social drinker. Quit smoking last week. PAST SURGICAL HISTORY She has had a history of partial hysterectomy, bilateral tubal ligation in 2003. PAST MEDICAL HISTORY She has a history of pulmonary embolus after a back surgery. She has also had interstitial cystitis diagnosed. MEDICATIONS Klonopin and Xanax she took today, apparently this is not prescribed or at least she does not take this daily. PHYSICAL EXAMINATION Eyes: Pupils grossly normal. Mucous membranes moist. Neck is supple. There is no meningismus or stridor. No difficulty swallowing or drooling. The lung sounds are clear and equal. Heart is a regular rate and rhythm without murmur, rub or gallop. The patient states she has lost 11 pounds in one week. She is thin in appearance but not cachectic. She is well-nourished. TMs are clear. Neck is supple. Lung sounds clear and equal. Heart regular rate and rhythm without murmur, rub or gallop. Abdomen is soft, nontender. Extremities are unremarkable. No pharyngitis. Neck is supple. EMERGENCY DEPARTMENT COURSE The patient has the above complaints. She had this weight loss and she is really focused on this and she really admittedly feels like there is something serious going on here and admits that likely it is her anxiety that is really flared here. She apparently has had low potassium and this is per her, so I did tell her we could check her potassium here. We will consider some IV fluids, may be a bit of dehydration with this 11-pound weight loss. This again is per her description. Does not really look ill here. Lungs are clear. Does not appear to need any type of antibiotics. IMPRESSION 05/04/18 1734 CHANDLER ORELLANA M.D. cc: MILENA COKER M.D.; CHANDLER ORELLANA M.D. << Signature on File>> Reported By: CHANDLER ORELLANA M.D. Signed By: CHANDLER ORELLANA M.D. Tests performed at: [address] [address] Normal [facility] BMPon 05-03-2018 Anion gap [Moles/Vol] 19.9 mmol/L Normal 15-22 [facility] Comment on above: Performed By: #### L 100.0010 #### ML [facility] [address] [place] [address] Calcium [Mass/Vol] 9.1 mg/dL Normal 8.6-10.0 [facility] Comment on above: Performed By: #### L 100.0010 #### ML [facility] [address] [place] [address] Chloride [Moles/Vol] 102 mmol/L Normal 98-107 [facility] Comment on above: Performed By: #### L 100.0010 #### ML [facility] [address] [place] [address] CO2 [Moles/Vol] 23 mmol/L Normal 22-29 [facility] Comment on above: Performed By: #### L 100.0010 #### ML [facility] [address] [place] [address] Creatinine [Mass/Vol] 0.66 mg/dL Normal 0.50-0.90 [facility] Comment on above: Performed By: #### L 100.0010 #### ML - LABORATORY [address] [place] [address] eGFR if AFR ANT > 60 ml/min/1.73m2 Normal [facility] Comment on above: Result Comment: eGFR >= 60 Indicates normal kidney function. * eGFR IS AN ESTIMATE * (AFR ANT = ) (non-AFR AM = NON-) MDRD calculation used in the eGFR should not be used to dose medications. For further limitations of the eGFR please refer to the Physician Website or the National Kidney Disease Education Program website (www.nkdep.nih.gov). Performed By: #### L 100.0010 #### [facility] [address] [place] [address] eGFR nonAFR Ant > 60 ml/Min/1.73m2 Normal [facility] Comment on above: Performed By: #### L 100.0010 #### [facility] [address] [place] [address] Glucose [Mass/Vol] 90 mg/dL Normal 74-106 [facility] Comment on above: Performed By: #### L 100.0010 #### [facility] [address] [place] [address] Potassium [Moles/Vol] 3.9 mmol/L Normal 3.5-5.0 [facility] Comment on above: Performed By: #### L 100.0010 #### [facility] [address] [place] [address] Sodium [Moles/Vol] 141 mmol/L Normal 135-145 [facility] Comment on above: Performed By: #### L 100.0010 #### [facility] [address] [place] [address] Urea nitrogen [Mass/Vol] 7 mg/dL Normal 6-20 [facility] Comment on above: Performed By: #### L 100.0010 #### [facility] [address] [place] [address] ED PROV NOTEon 01-01-2018 Protein mass conc HNO ID: [id number] thor: Chavo Ruelas: (none)Author Type: PhysicianType: ED Provider NotesFiled: 02/06/2018 9:11 PMNote Text:THE [place], [place] [address] INFORMATION MANAGEMENTEMERGENCY DEPARTMENT REPORTPatient: JOSH KAM CONNOR B D.O.[id number] FStatus: DEP ER EDDate of Service: 12/28/17CHIEF COMPLAINTTingling all over her body.ALLERGIESNubain.SOCI AL HISTORYOccasional alcohol use. She quit smoking cigarettes 4 days ago.PAST SURGICAL HISTORYHysterectomy, back surgery.PAST MEDICAL HISTORYShe has had pulmonary embolism, tubal ligation.MEDICATIONSXanax , ibuprofen, Benadryl.FAMILY HISTORYSignificant for diabetes.HISTORY OF PRESENT ILLNESSThe patient is a 42-year-old female presenting to the emergency departmentwith the chief complaint of tingling sensation all over her body. Shestates that this been constant since this morning. She denies any feveror chills. She denies any headache. She denies any chest pain orshortness of breath. She states she quit smoking cigarettes about 4 daysago. However, she states she had three cigarettes today. She states thatshe also recently quit smoking marijuana and has really cut back, and shestates without the smoking she has been very anxious. She states shestarted to have a panic attack. She denies any chest pain or shortnessof breath, however, and states she just feels tingly all over her body.She denies any weakness. She denies any headache. She denies any neckpain or neck stiffness.REVIEW OF SYSTEMSA 10-point review of systems was performed and negative except for HPI.PHYSICAL EXAMINATIONGeneral: The patient was alert and appeared to be in no acute distresswith stable vital signs. The head was normocephalic, atraumatic. Eyes:Pupils equal and reactive to light with normal conjunctivae. ENT: Theoral mucosa moist, tongue and uvula are midline. Cranial nerves II-XIIare intact. She had 5/5 motor strength in upper and lower extremities,equal symmetric bilaterally. The heart was regular rate and rhythm.Lungs were clear. The abdomen was soft and nontender. There was nolower extremity edema. She had downgoing Babinski. She had 5/5 motorstrength in the lower extremities with normal distal sensation, capillaryrefill and perfusion.ED CLINICAL COURSEThe patient was hemodynamically stable, nonseptic and nontoxic throughoutthe entire ED course. The patient had just diffuse paresthesias all overbody. I do not suspect stroke. I did check her electrolytes. A CBC wasunremarkable. Chemistry panel showed sodium 134, chloride was 97, bicarbwas 17, anion gap was 23.9. I did give her some IV fluids. A pregnancytest was negative. She was given some Ativan, as well. At this point shestates she is feeling a little bit better. I do not think we need to doany further testing or imaging. I do not suspect stroke. I think thatthis is more related to anxiety. She is to follow up with her doctor José Miguel. She is to return to the emergency department if symptoms worsenor if new symptoms develop.IMPRESSION1. Anxiety.2. Paresthesias.DISPOSITIONT he patient will be discharged home. 01/08/18 0345 CHAVO LAIRD D.O.cc: CHAVO LAIRD D.O. << Signature on File>> Reported By: CHAVO LAIRD D.O. Signed By: CHAVO LAIRD D.O.Tests performed at:[address] [id number] Normal [facility] Vital Signs Date Time Vital Sign Value Performing Clinician Facility 12-11-2024 13:56-0400 Body mass index (BMI) [Ratio] 20.43 kg/m2 Blake Falcon APRN.CNP Work Phone: [facility] 12-11-2024 13:56-0400 Body temperature 97.7 [degF] Blake Falcon APRN.CNP Work Phone: [facility] 12-11-2024 13:56-0400 Body weight 54 kg Blake Praisler-Wood CONCRETE STONE FINISHING SUPERVISOR.CUSTOMER QUALITY ENGINEER Work Phone: [facility] 12-11-2024 13:56-0400 Diastolic blood pressure 62 mm[Hg] Blake Praisler-Wood CONCRETE STONE FINISHING SUPERVISOR.CUSTOMER QUALITY ENGINEER Work Phone: [facility] 12-11-2024 13:56-0400 Heart rate 97 /min Blake Praisler-Wood CONCRETE STONE FINISHING SUPERVISOR.CUSTOMER QUALITY ENGINEER Work Phone: [facility] 12-11-2024 13:56-0400 Respiratory rate 20 /min Blake Praisler-Wood CONCRETE STONE FINISHING SUPERVISOR.CUSTOMER QUALITY ENGINEER Work Phone: [facility] 12-11-2024 13:56-0400 SaO2% (BldA) [Mass fraction] 98 % Blake Praisler-Wood CONCRETE STONE FINISHING SUPERVISOR.CUSTOMER QUALITY ENGINEER Work Phone: [facility] 12-11-2024 13:56-0400 Systolic blood pressure 94 mm[Hg] Blake Praisler-Wood CONCRETE STONE FINISHING SUPERVISOR.CUSTOMER QUALITY ENGINEER Work Phone: [facility] 11-16-2024 13:02-0400 Body mass index (BMI) [Ratio] 20.21 kg/m2 Jo-Ann Park CONCRETE STONE FINISHING SUPERVISOR.CUSTOMER QUALITY ENGINEER Work Phone: [facility] 11-16-2024 13:02-0400 Body temperature 98.91 [degF] Jo-Ann Park CONCRETE STONE FINISHING SUPERVISOR.CUSTOMER QUALITY ENGINEER Work Phone: [facility] 11-16-2024 13:02-0400 Body weight 53.4 kg Jo-Ann Park CONCRETE STONE FINISHING SUPERVISOR.CUSTOMER QUALITY ENGINEER Work Phone: [facility] 11-16-2024 13:02-0400 Diastolic blood pressure 64 mm[Hg] Jo-Ann Park CONCRETE STONE FINISHING SUPERVISOR.CUSTOMER QUALITY ENGINEER Work Phone: [facility] 11-16-2024 13:02-0400 Heart rate 100 /min Jo-Ann Park CONCRETE STONE FINISHING SUPERVISOR.CUSTOMER QUALITY ENGINEER Work Phone: [facility] 11-16-2024 13:02-0400 Respiratory rate 18 /min Jo-Ann Park CONCRETE STONE FINISHING SUPERVISOR.CUSTOMER QUALITY ENGINEER Work Phone: [facility] 11-16-2024 13:02-0400 SaO2% (BldA) [Mass fraction] 98 % Jo-Ann Park CONCRETE STONE FINISHING SUPERVISOR.CUSTOMER QUALITY ENGINEER Work Phone: [facility] 11-16-2024 13:02-0400 Systolic blood pressure 100 mm[Hg] Jo-Ann Park CONCRETE STONE FINISHING SUPERVISOR.CUSTOMER QUALITY ENGINEER Work Phone: [facility] 11-14-2024 10:46-0400 Body mass index (BMI) [Ratio] 20.66 kg/m2 Gideon Ace APRN.CUSTOMER QUALITY ENGINEER Work Phone: [facility] 11-14-2024 10:46-0400 Body temperature 97 [degF] Gideon Ace APRN.CUSTOMER QUALITY ENGINEER Work Phone: [facility] 11-14-2024 10:46-0400 Body weight 54.6 kg Gideon Ace APRN.CUSTOMER QUALITY ENGINEER Work Phone: [facility] 11-14-2024 10:46-0400 Diastolic blood pressure 68 mm[Hg] Gideon Ace APRN.CUSTOMER QUALITY ENGINEER Work Phone: [facility] 11-14-2024 10:46-0400 Heart rate 78 /min Gideon Ace APRN.CUSTOMER QUALITY ENGINEER Work Phone: [facility] 11-14-2024 10:46-0400 Respiratory rate 20 /min Gideon Ace APRN.CUSTOMER QUALITY ENGINEER Work Phone: [facility] 11-14-2024 10:46-0400 SaO2% (BldA) [Mass fraction] 99 % Gideon Ace APRN.CUSTOMER QUALITY ENGINEER Work Phone: [facility] 11-14-2024 10:46-0400 Systolic blood pressure 100 mm[Hg] Gideon Ace APRN.CUSTOMER QUALITY ENGINEER Work Phone: [facility] 09-18-2024 16:10-0400 Body temperature 97.5 [degF] Dr. Rik Abdalla Work Phone: 0(648)872-823710 [place] [address] 09-18-2024 16:10-0400 Diastolic blood pressure 65 mm[Hg] Dr. Rik Abdalla Work Phone: 9(677)428-461510 [place] [address] 09-18-2024 16:10-0400 Heart rate 98 /min Dr. Rik Abdalla Work Phone: 3(494)772-158310 [place] [address] 09-18-2024 16:10-0400 Respiratory rate 14 /min Dr. Rik Abdalla Work Phone: 4(879)979-342210 [place] [address] 09-18-2024 16:10-0400 SaO2% (BldA) [Mass fraction] 99 % Dr. Rik Abdalla Work Phone: 1(120)895-888310 [place] [address] 09-18-2024 16:10-0400 Systolic blood pressure 100 mm[Hg] Dr. Rik Abdalla Work Phone: 8(678)484-435510 [place] [address] 09-18-2024 13:07-0400 Body height 162.[address] Rik Abdalla Work Phone: 1(906)743-863310 [place] [address] 09-18-2024 13:07-0400 Body mass index (BMI) [Ratio] 19.9 kg/m2 Dr. Rik Abdalla Work Phone: 8(416)366-092310 [place] [address] 09-18-2024 13:07-0400 Body weight 52.[address] Rik Abdalla Work Phone: 0(386)609-680410 [place] [address] 09-10-2024 08:30-0400 Body height 162.[address] Rik Abdalla Work Phone: 1(876)224-757210 [place] [address] 09-10-2024 08:30-0400 Body mass index (BMI) [Ratio] 20.1 kg/m2 Dr. Rik Abdalla Work Phone: 8(967)960-522010 [place] [address] 09-10-2024 08:30-0400 Body weight 53.[address] Rik Abdalla Work Phone: 7(808)229-850610 [place] [address] 09-10-2024 08:30-0400 Diastolic blood pressure 72 mm[Hg] Dr. Rik Abdalla Work Phone: 0(687)510-708810 [place] [address] 09-10-2024 08:30-0400 Systolic blood pressure 107 mm[Hg] Dr. Rik Abdalla Work Phone: 9(480)581-214010 [place] [address] 09-08-2024 10:47-0400 Body height 162.[address] Rik Abdalla Work Phone: 8(553)325-100210 [place] [address] 09-08-2024 10:47-0400 Body mass index (BMI) [Ratio] 20.2 kg/m2 Dr. Rik Abdalla Work Phone: 9(741)319-541010 [place] [address] 09-08-2024 10:47-0400 Body weight 53.[address] Rik Abdalla Work Phone: 1(558)053-226310 [place] [address] 09-08-2024 10:47-0400 Diastolic blood pressure 76 mm[Hg] Dr. Rik Abdalla Work Phone: 4(959)551-208710 [place] [address] 09-08-2024 10:47-0400 Heart rate 108 /min Dr. Rik Abdalla Work Phone: 0(114)279-346010 [place] [address] 09-08-2024 10:47-0400 Respiratory rate 19 /min Dr. Rik Abdalla Work Phone: 1(743)453-117610 [place] [address] 09-08-2024 10:47-0400 SaO2% (BldA) [Mass fraction] 98 % Dr. Rik Abdalla Work Phone: 3(981)305-274910 [place] [address] 09-08-2024 10:47-0400 Systolic blood pressure 128 mm[Hg] Dr. Rik Abdalla Work Phone: 3(937)000-753910 [place] [address] 09-03-2024 09:32-0400 Body height 162.[address] Rik Abdalla Work Phone: 1(052)897-572510 [place] [address] 09-03-2024 09:26-0400 Body mass index (BMI) [Ratio] 20.7 kg/m2 Dr. Rik Abdalla Work Phone: 5(729)948-739810 [place] [address] 09-03-2024 09:26-0400 Body weight 54.[address] Rik Abdalla Work Phone: 3(686)123-771910 [place] [address] 09-03-2024 09:26-0400 Diastolic blood pressure 70 mm[Hg] Dr. Rik Abdalla Work Phone: 6(106)810-849258 [place] [address] 09-03-2024 09:26-0400 Systolic blood pressure 113 mm[Hg] Dr. Rik Abdalla Work Phone: 1(427)421-138458 [place] [address] 08-30-2024 17:52-0400 Body temperature 98.1 [degF] Dr. Rik Abdalla Work Phone: 2(212)903-831158 [place] [address] 08-30-2024 17:52-0400 Diastolic blood pressure 59 mm[Hg] Dr. Rik Abdalla Work Phone: 2(466)104-733958 [place] [address] 08-30-2024 17:52-0400 Heart rate 78 /min Dr. Rik Abdalla Work Phone: 5(587)664-350758 [place] [address] 08-30-2024 17:52-0400 Respiratory rate 16 /min Dr. Rik Abdalla Work Phone: 6(997)586-772958 [place] [address] 08-30-2024 17:52-0400 SaO2% (BldA) [Mass fraction] 99 % Dr. Rik Abdalla Work Phone: 1(811)298-994158 [place] [address] 08-30-2024 17:52-0400 Systolic blood pressure 118 mm[Hg] Dr. Rik Abdalla Work Phone: 8(004)098-732258 [place] [address] 08-30-2024 11:07-0400 Body height 162.[address] Rik Abdalla Work Phone: 1(078)953-957258 [place] [address] 08-30-2024 11:07-0400 Body mass index (BMI) [Ratio] 22.6 kg/m2 Dr. Rik Abdalla Work Phone: 7(619)883-723058 [place] [address] 08-30-2024 11:07-0400 Body weight 59.[address] Rik Abdalla Work Phone: 1(015)065-402958 [place] [address] 08-28-2024 14:58-0400 Body temperature 98 [degF] Dr. Rik Abdalla Work Phone: 4(938)577-267658 [place] [address] 08-28-2024 14:58-0400 Diastolic blood pressure 78 mm[Hg] Dr. Rik Abdalla Work Phone: 8(178)974-913658 [place] [address] 08-28-2024 14:58-0400 Heart rate 78 /min Dr. Rik Abdalla Work Phone: 2(553)097-866458 [place] [address] 08-28-2024 14:58-0400 Respiratory rate 18 /min Dr. Rik Abdalla Work Phone: 0(561)323-386058 [place] [address] 08-28-2024 14:58-0400 SaO2% (BldA) [Mass fraction] 100 % Dr. Rik Abdalla Work Phone: 8(946)919-095610 [place] [address] 08-28-2024 14:58-0400 Systolic blood pressure 112 mm[Hg] Dr. Rik Abdalla Work Phone: 3(670)010-648110 [place] [address] 08-28-2024 11:36-0400 Body mass index (BMI) [Ratio] 21.4 kg/m2 Dr. Rik Abdalla Work Phone: 3(313)313-902610 [place] [address] 08-28-2024 11:36-0400 Body weight 56.[address] Rik Abdalla Work Phone: 0(588)741-158110 [place] [address] 08-26-2024 08:00-0400 Body temperature 97.8 [degF] Dr. Rik Abdalla Work Phone: 9(718)286-647410 [place] [address] 08-26-2024 08:00-0400 Diastolic blood pressure 54 mm[Hg] Dr. Rik Abdalla Work Phone: 2(185)558-038658 [place] [address] 08-26-2024 08:00-0400 Heart rate 80 /min Dr. Rik Abdalla Work Phone: 1(410)267-820358 [place] [address] 08-26-2024 08:00-0400 Respiratory rate 16 /min Dr. Rik Abdalla Work Phone: 3(899)644-024810 [place] [address] 08-26-2024 08:00-0400 SaO2% (BldA) [Mass fraction] 97 % Dr. Rik Abdalla Work Phone: 2(034)751-405658 [place] [address] 08-26-2024 08:00-0400 Systolic blood pressure 101 mm[Hg] Dr. Rik Abdalla Work Phone: 6(022)560-356658 [place] [address] 08-25-2024 21:02-0400 Body height 163.[address] Rik Abdalla Work Phone: 1(685)730-051058 [place] [address] 08-25-2024 21:02-0400 Body mass index (BMI) [Ratio] 21.4 kg/m2 Dr. Rik Abdalla Work Phone: 5(844)763-070058 [place] [address] 08-25-2024 21:02-0400 Body weight 57.[address] Rik Abdalla Work Phone: 1(856)667-310910 [place] [address] 08-18-2024 10:02-0400 Body height 162.[address] Rik Abdalla Work Phone: 2(217)539-313810 [place] [address] 08-18-2024 10:02-0400 Body mass index (BMI) [Ratio] 20.4 kg/m2 Dr. Rik Abdalla Work Phone: 9(069)667-256710 [place] [address] 08-18-2024 10:02-0400 Body weight 53.[address] Rik Abdalla Work Phone: 9(155)553-362658 [place] [address] 08-18-2024 10:02-0400 Diastolic blood pressure 73 mm[Hg] Dr. Rik Abdalla Work Phone: 2(972)546-072510 [place] [address] 08-18-2024 10:02-0400 Systolic blood pressure 111 mm[Hg] Dr. Rik Abdalla Work Phone: 9(516)011-556410 [place] [address] 08-13-2024 08:22-0400 Body mass index (BMI) [Ratio] 20.4 kg/m2 Dr. Rik Abdalla Work Phone: 7(441)943-952658 [place] [address] 08-13-2024 08:22-0400 Body weight 53.[address] Rik Abdalla Work Phone: 9(880)505-114258 [place] [address] 08-13-2024 08:22-0400 Diastolic blood pressure 58 mm[Hg] Dr. Rik Abdalla Work Phone: 4(119)577-292958 [place] [address] 08-13-2024 08:22-0400 Systolic blood pressure 100 mm[Hg] Dr. Rik Marshall DO Work Phone: 9(143)987-903510 [place] [address] 08-11-2024 14:28-0400 Body temperature 98.6 [degF] Dr. Rik Marshall DO Work Phone: 1(340)767-050810 [place] [address] 08-11-2024 14:28-0400 Diastolic blood pressure 78 mm[Hg] Dr. Rik Marshall DO Work Phone: 1(627)412-974610 [place] [address] 08-11-2024 14:28-0400 Heart rate 78 /min Dr. Rik Marshall DO Work Phone: 7(804)737-356610 [place] [address] 08-11-2024 14:28-0400 Respiratory rate 18 /min Dr. Rik Abdalla Work Phone: 2(791)266-709710 [place] [address] 08-11-2024 14:28-0400 SaO2% (BldA) [Mass fraction] 98 % Dr. Rik Abdalla Work Phone: 5(283)133-169710 [place] [address] 08-11-2024 14:28-0400 Systolic blood pressure 128 mm[Hg] Dr. Rik Abdalla Work Phone: 5(198)514-977710 [place] [address] 08-11-2024 10:27-0400 Body mass index (BMI) [Ratio] 20.2 kg/m2 Dr. Rik Abdalla Work Phone: 3(295)261-147510 [place] [address] 08-11-2024 10:27-0400 Body weight 53.[address] Rik Abdalla Work Phone: 2(761)999-270210 [place] [address] 08-09-2024 11:49-0400 Body temperature 97.7 [degF] Dr. Rik Abdalla Work Phone: 0(513)857-268910 [place] [address] 08-09-2024 11:49-0400 Diastolic blood pressure 74 mm[Hg] Dr. Rik Abdalla Work Phone: 7(327)509-651558 [place] [address] 08-09-2024 11:49-0400 Heart rate 68 /min Dr. Rik Abdalla Work Phone: 4(809)190-950958 [place] [address] 08-09-2024 11:49-0400 Respiratory rate 18 /min Dr. Rik Marshall DO Work Phone: 3(791)752-624258 [place] [address] 08-09-2024 11:49-0400 SaO2% (BldA) [Mass fraction] 99 % Dr. Rik Abdalla Work Phone: 4(719)659-690258 [place] [address] 08-09-2024 11:49-0400 Systolic blood pressure 104 mm[Hg] Dr. Rik Abdalla Work Phone: 4(583)007-318558 [place] [address] 08-09-2024 11:28-0400 Body mass index (BMI) [Ratio] 20.4 kg/m2 Dr. Rik Abdalla Work Phone: 8(987)954-477158 [place] [address] 08-09-2024 11:28-0400 Body weight [address] Rik Abdalla Work Phone: 9(853)265-146710 [place] [address] 07-28-2024 17:40-0400 Body temperature 98.1 [degF] Dr. Rik Abdalla Work Phone: 7(786)405-866558 [place] [address] 07-28-2024 17:40-0400 Diastolic blood pressure 78 mm[Hg] Dr. Rik Abdalla Work Phone: 0(305)472-298458 [place] [address] 07-28-2024 17:40-0400 Heart rate 98 /min Dr. Rik Abdalla Work Phone: 7(044)526-866858 [place] [address] 07-28-2024 17:40-0400 Respiratory rate 19 /min Dr. Rik Abdalla Work Phone: 2(171)174-125958 [place] [address] 07-28-2024 17:40-0400 SaO2% (BldA) [Mass fraction] 98 % Dr. Rik Abdalla Work Phone: 0(162)362-245758 [place] [address] 07-28-2024 17:40-0400 Systolic blood pressure 117 mm[Hg] Dr. Rik Abdalla Work Phone: 9(272)197-221158 [place] [address] 07-28-2024 15:56-0400 Body height 162.[address] Rik Abdalla Work Phone: 4(966)034-035058 [place] [address] 07-28-2024 15:56-0400 Body mass index (BMI) [Ratio] 20.2 kg/m2 Dr. Rik Abdalla Work Phone: 5(106)955-017058 [place] [address] 07-28-2024 15:56-0400 Body weight 53.[address] Rik Abdalla Work Phone: 2(917)647-163210 [place] [address] 07-15-2024 10:45-0400 Body mass index (BMI) [Ratio] 20 kg/m2 Dr. Rik Abdalla Work Phone: 8(399)638-429210 [place] [address] 07-15-2024 10:45-0400 Body weight 53.[address] Rik Abdalla Work Phone: 6(657)310-837710 [place] [address] 07-15-2024 10:45-0400 Diastolic blood pressure 66 mm[Hg] Dr. Rik Abdalla Work Phone: 9(689)035-370110 [place] [address] 07-15-2024 10:45-0400 Systolic blood pressure 101 mm[Hg] Dr. Rik Abdalla Work Phone: 6(292)833-550810 [place] [address] 07-08-2024 21:19-0400 Body temperature 98 [degF] Dr. Rik Abdalla Work Phone: 8(254)744-991610 [place] [address] 07-08-2024 21:19-0400 Diastolic blood pressure 62 mm[Hg] Dr. Rik Abdalla Work Phone: 1(640)210-823810 [place] [address] 07-08-2024 21:19-0400 Heart rate 80 /min Dr. Rik Abdalla Work Phone: 0(229)470-011058 [place] [address] 07-08-2024 21:19-0400 Respiratory rate 18 /min Dr. Rik Abdalla Work Phone: 3(569)979-141058 [place] [address] 07-08-2024 21:19-0400 SaO2% (BldA) [Mass fraction] 96 % Dr. Rik Abdalla Work Phone: 7(528)299-337358 [place] [address] 07-08-2024 21:19-0400 Systolic blood pressure 107 mm[Hg] Dr. Rik Abdalla Work Phone: 4(490)778-490358 [place] [address] 07-08-2024 18:26-0400 Body height 162.[address] Rik Abdalla Work Phone: 4(747)716-284858 [place] [address] 07-08-2024 18:26-0400 Body mass index (BMI) [Ratio] 19.8 kg/m2 Dr. Rik Abdalla Work Phone: 3(292)148-539558 [place] [address] 07-08-2024 18:26-0400 Body weight 52.[address] Rik Abdalla Work Phone: 1(502)236-447410 [place] [address] 06-07-2024 13:21-0500 Body temperature 98.2 [degF] Dr. Rik Abdalla Work Phone: 0(493)480-968210 [place] [address] 06-07-2024 13:21-0500 Diastolic blood pressure 73 mm[Hg] Dr. Rik Abdalla Work Phone: 6(847)087-145310 [place] [address] 06-07-2024 13:21-0500 Heart rate 60 /min Dr. Rik Abdalla Work Phone: 8(691)233-240610 [place] [address] 06-07-2024 13:21-0500 Respiratory rate 16 /min Dr. Rik Abdalla Work Phone: 6(226)667-977310 [place] [address] 06-07-2024 13:21-0500 SaO2% (BldA) [Mass fraction] 99 % Dr. Rik Abdalla Work Phone: 5(785)341-443110 [place] [address] 06-07-2024 13:21-0500 Systolic blood pressure 95 mm[Hg] Dr. Rik Abdalla Work Phone: 2(474)162-708710 [place] [address] 06-07-2024 09:51-0500 Body mass index (BMI) [Ratio] 19.3 kg/m2 Dr. Rik Abdalla Work Phone: 0(958)565-050210 [place] [address] 06-07-2024 09:51-0500 Body weight 51.[address] Rik Abdalla Work Phone: 7(320)009-784410 [place] [address] 06-04-2024 16:09-0500 Body mass index (BMI) [Ratio] 19.3 kg/m2 Dr. Rik Abdalla Work Phone: 2(637)871-757958 [place] [address] 06-04-2024 16:09-0500 Body temperature 97.6 [degF] Dr. Rik Abdalla Work Phone: 6(065)615-707658 [place] [address] 06-04-2024 16:09-0500 Body weight 51.[address] Rik Abdalla Work Phone: 5(081)247-561710 [place] [address] 06-04-2024 16:09-0500 Diastolic blood pressure 70 mm[Hg] Dr. Rik Abdalla Work Phone: 7(025)791-208310 [place] [address] 06-04-2024 16:09-0500 Heart rate 73 /min Dr. Rik Abdalla Work Phone: 6(273)578-496510 [place] [address] 06-04-2024 16:09-0500 Respiratory rate 15 /min Dr. Rik Abdalla Work Phone: 2(201)972-184010 [place] [address] 06-04-2024 16:09-0500 SaO2% (BldA) [Mass fraction] 98 % Dr. Rik Abdalla Work Phone: 4(742)318-962410 [place] [address] 06-04-2024 16:09-0500 Systolic blood pressure 111 mm[Hg] Dr. Rik Abdalla Work Phone: 0(112)022-168710 [place] [address] 06-04-2024 02:18-0500 Body temperature 98 [degF] Dr. Rik Abdalla Work Phone: 6(811)405-974710 [place] [address] 06-04-2024 02:18-0500 Diastolic blood pressure 56 mm[Hg] Dr. Rik Abdalla Work Phone: 6(309)248-493610 [place] [address] 06-04-2024 02:18-0500 Heart rate 67 /min Dr. Rik Abdalla Work Phone: 7(944)514-753558 [place] [address] 06-04-2024 02:18-0500 Respiratory rate 14 /min Dr. Rik Abdalla Work Phone: 3(573)967-759358 [place] [address] 06-04-2024 02:18-0500 SaO2% (BldA) [Mass fraction] 98 % Dr. Rik Abdalla Work Phone: 1(501)717-592210 [place] [address] 06-04-2024 02:18-0500 Systolic blood pressure 104 mm[Hg] Dr. Rik Le DO Work Phone: [facility] 06-04-2024 00:10-0500 Body mass index (BMI) [Ratio] 19.5 kg/m2 Dr. Rik Marshall DO Work Phone: [facility] 06-04-2024 00:10-0500 Body weight 51.[address] Rik Marshall DO Work Phone: [facility] 04-26-2024 16:29-0500 Body temperature 97.59 [degF] Delano Yadiel DO Work Phone: [facility] 04-26-2024 16:29-0500 Diastolic blood pressure 82 mm[Hg] Delano Yadiel DO Work Phone: [facility] 04-26-2024 16:29-0500 Heart rate 95 /min Delano Yadiel DO Work Phone: [facility] 04-26-2024 16:29-0500 Respiratory rate 20 /min Delano Yadiel DO Work Phone: [facility] 04-26-2024 16:29-0500 SaO2% (BldA) [Mass fraction] 98 % Delano Yadiel DO Work Phone: [facility] [employer] 04-26-2024 16:29-0500 Systolic blood pressure 113 mm[Hg] Delano Yadiel DO Work Phone: [facility] 04-01-2024 05:07-0500 Body temperature 98.1 [degF] Hemal Choe DO Work Phone: [facility] 04-01-2024 05:07-0500 Diastolic blood pressure 67 mm[Hg] Hemal Choe DO Work Phone: [facility] 04-01-2024 05:07-0500 Heart rate 88 /min Hemal Choe DO Work Phone: [facility] 04-01-2024 05:07-0500 Respiratory rate 18 /min Hemal Choe DO Work Phone: [facility] 04-01-2024 05:07-0500 SaO2% (BldA) [Mass fraction] 96 % Hemal Choe DO Work Phone: [facility] 04-01-2024 05:07-0500 Systolic blood pressure 97 mm[Hg] Hemal Choe DO Work Phone: [facility] 03-11-2024 10:27-0500 Body height 162.6 cm Zample PA-C Work Phone: [facility] 03-11-2024 10:27-0500 Body mass index (BMI) [Ratio] 18.88 kg/m2 Zample PA-C Work Phone: [facility] 03-11-2024 10:27-0500 Body weight 49.9 kg Akilah Pongr PA-C Work Phone: [facility] 03-11-2024 10:27-0500 Diastolic blood pressure 62 mm[Hg] Akilah Smith PA-C Work Phone: [facility] 03-11-2024 10:27-0500 Systolic blood pressure 100 mm[Hg] Zample PA-C Work Phone: [facility] 02-24-2024 19:44-0500 Body temperature 97.11 [degF] Jak Medellin MD Work Phone: [facility] 02-24-2024 19:44-0500 Diastolic blood pressure 68 mm[Hg] Jak Medellin MD Work Phone: [facility] 02-24-2024 19:44-0500 Heart rate 77 /min Jak Medellin MD Work Phone: [facility] 02-24-2024 19:44-0500 Respiratory rate 16 /min Jak Medellin MD Work Phone: [facility] 02-24-2024 19:44-0500 SaO2% (BldA) [Mass fraction] 98 % Jak Medellin MD Work Phone: [facility] 02-24-2024 19:44-0500 Systolic blood pressure 106 mm[Hg] Jak Medellin MD Work Phone: [facility] 02-24-2024 19:44-0500 Body height 162.6 cm Jak Medellin MD Work Phone: [facility] 02-24-2024 19:44-0500 Body mass index (BMI) [Ratio] 19.4 kg/m2 Jak Medellin MD Work Phone: [facility] 02-24-2024 19:44-0500 Body weight 51.26 kg Jak Medellin MD Work Phone: [facility] 12-20-2023 08:23-0400 Diastolic blood pressure 66 mm[Hg] Karolina Yoder MD Work Phone: [facility] 12-20-2023 08:23-0400 Heart rate 66 /min Karolina Yoder MD Work Phone: [facility] 12-20-2023 08:23-0400 Respiratory rate 18 /min Karolina Yoder MD Work Phone: [facility] 12-20-2023 08:23-0400 SaO2% (BldA) [Mass fraction] 99 % Karolina Yoder MD Work Phone: [facility] 12-20-2023 08:23-0400 Systolic blood pressure 104 mm[Hg] Karolina Yoder MD Work Phone: [facility] 12-20-2023 03:03-0400 Body temperature 98.2 [degF] Karolina Yoder MD Work Phone: [facility] 10-03-2023 08:27-0400 Body temperature 97.9 [degF] Wendy Lenaway PA-C Work Phone: [facility] 10-03-2023 08:27-0400 Diastolic blood pressure 83 mm[Hg] Wendy Lenaway PA-C Work Phone: [facility] 10-03-2023 08:27-0400 Heart rate 86 /min Wendy Lenaway PA-C Work Phone: [facility] 10-03-2023 08:27-0400 Respiratory rate 16 /min Wendy Lenaway PA-C Work Phone: [facility] 10-03-2023 08:27-0400 SaO2% (BldA) [Mass fraction] 100 % Wendy Lenaway PA-C Work Phone: [facility] 10-03-2023 08:27-0400 Systolic blood pressure 122 mm[Hg] Wendy Lenaway PA-C Work Phone: [facility] 09-30-2023 14:37-0400 Body temperature 98.01 [degF] Devante Hiram DO Work Phone: [facility] 09-30-2023 14:37-0400 Diastolic blood pressure 74 mm[Hg] Devante Hiram DO Work Phone: [facility] 09-30-2023 14:37-0400 Heart rate 110 /min Devante Hiram DO Work Phone: [facility] 09-30-2023 14:37-0400 Respiratory rate 22 /min Devante Hiram DO Work Phone: [facility] 09-30-2023 14:37-0400 SaO2% (BldA) [Mass fraction] 97 % Devante Hiram DO Work Phone: [facility] 09-30-2023 14:37-0400 Systolic blood pressure 111 mm[Hg] Devante Hiram DO Work Phone: [facility] 07-29-2023 12:31-0400 Body height 164.8 cm Kingsley Marques MD Work Phone: [facility] 07-29-2023 12:31-0400 Body mass index (BMI) [Ratio] 18.98 kg/m2 Kingsley Marques MD Work Phone: [facility] 07-29-2023 12:31-0400 Body temperature 98.71 [degF] Kingsley Marques MD Work Phone: [facility] 07-29-2023 12:31-0400 Body weight 51.55 kg Kingsley Marques MD Work Phone: [facility] 07-29-2023 12:31-0400 Diastolic blood pressure 74 mm[Hg] Kingsley Marques MD Work Phone: [facility] 07-29-2023 12:31-0400 Heart rate 87 /min Kingsley Marques MD Work Phone: [facility] 07-29-2023 12:31-0400 Systolic blood pressure 115 mm[Hg] Kingsley Marques MD Work Phone: [facility] 06-16-2023 11:54-0400 Body temperature 98.2 [degF] Jeremy Willard MD, PhD Work Phone: [facility] 06-16-2023 11:54-0400 Diastolic blood pressure 57 mm[Hg] Jeremy Willard MD, PhD Work Phone: [facility] 06-16-2023 11:54-0400 Heart rate 62 /min Jeremy Willard MD, PhD Work Phone: [facility] 06-16-2023 11:54-0400 Respiratory rate 20 /min Jeremy Willard MD, PhD Work Phone: [facility] 06-16-2023 11:54-0400 SaO2% (BldA) [Mass fraction] 99 % Jeremy Willard MD, PhD Work Phone: [facility] 06-16-2023 11:54-0400 Systolic blood pressure 97 mm[Hg] Jeremy Willard MD, PhD Work Phone: [facility] 06-07-2023 12:47-0500 Body temperature 98.71 [degF] Moriah Malin MD Work Phone: [facility] 06-07-2023 12:47-0500 Body weight 53.52 kg Moriah Malin MD Work Phone: [facility] 06-07-2023 12:47-0500 Diastolic blood pressure 60 mm[Hg] Moriah Malin MD Work Phone: [facility] 06-07-2023 12:47-0500 Heart rate 87 /min Moriah Malin MD Work Phone: [facility] 06-07-2023 12:47-0500 Respiratory rate 14 /min Moriah Malin MD Work Phone: [facility] 06-07-2023 12:47-0500 Systolic blood pressure 95 mm[Hg] Moriah Malin MD Work Phone: [facility] 05-29-2023 09:33-0500 Body temperature 97.81 [degF] Wendy Lenaway PA-C Work Phone: [facility] 05-29-2023 09:33-0500 Body weight 53.52 kg Wendy Lenaway PA-C Work Phone: [facility] 05-29-2023 09:33-0500 Diastolic blood pressure 65 mm[Hg] Wendy Lenaway PA-C Work Phone: [facility] 05-29-2023 09:33-0500 Heart rate 83 /min Wendy Lenaway PA-C Work Phone: [facility] 05-29-2023 09:33-0500 Respiratory rate 15 /min Wendy Lenaway PA-C Work Phone: [facility] 05-29-2023 09:33-0500 Systolic blood pressure 97 mm[Hg] Wendy Lenaway PA-C Work Phone: [facility] Encounters Encounter Date Encounter Type Care Provider Facility Start: 12-19-2024 End: 12-19-2024 Letter encounter Margedana Rizvien KILN PULLER Work Phone: [facility] Start: 12-11-2024 End: 12-11-2024 Patient encounter procedure Blake Falcon APRN.CUSTOMER QUALITY ENGINEER Work Phone: [facility] Comment on above: Facial swelling (Halley shasha Dx) Start: 12-11-2024 End: 12-11-2024 ambulatory BLAKE FALCON Facility:[facility] Start: 11-16-2024 End: 11-16-2024 Patient encounter procedure Jo[place] Park CONCRETE STONE FINISHING SUPERVISOR.CUSTOMER QUALITY ENGINEER Work Phone: [facility] Comment on above: Insect bite of left knee, subsequent encounter (Primary Dx) Refill Request Start: 11-16-2024 End: 11-16-2024 ambulatory DELANO MAYEN Facility:[facility] Start: 11-14-2024 End: 11-14-2024 Patient encounter procedure Gideon Ace CONCRETE STONE FINISHING SUPERVISOR.CUSTOMER QUALITY ENGINEER Work Phone: [facility] Comment on above: Insect bite of left knee, initial encounter (Primary Dx) Start: 11-14-2024 End: 11-14-2024 ambulatory DELANO MAEYN Facility:[facility] Start: 09-18-2024 End: 09-18-2024 Emergency department patient visit Dr. Rik Abdalla Work Phone: -Emergency Department Work Phone: Start: 09-10-2024 End: 09-10-[address] Treasure Cardoso MD -[facility] Work Phone: Start: 09-10-2024 End: 09-10-[address] Rik Abdalla Work Phone: [facility] Work Phone: Start: 09-08-2024 End: 09-08-[address] Jak Casas MD -[facility] Work Phone: Start: 09-08-2024 End: 09-08-[address] Rik Abdalla Work Phone: [facility] Work Phone: Start: 09-03-2024 End: 09-03-[address] Treasure Cardoso MD -[facility] Work Phone: Start: 09-03-2024 End: 09-03-[address] Rik Abdalla Work Phone: [facility] Work Phone: Start: 08-30-2024 End: 08-30-2024 Emergency department patient visit Dr. Rik Abdalla Work Phone: -Emergency Department Work Phone: Start: 08-28-2024 End: 08-28-2024 Emergency department patient visit Dr. Rik Abdalla Work Phone: -Emergency Department Work Phone: Start: 08-26-2024 Non-patient / Non-visit Dr. Rowan Cardoso MD -[facility] Start: 08-25-2024 ambulatory Treasure Johnson lity:[facility] Start: 08-25-2024 End: 08-26-2024 Evaluation and management of inpatient Dr. Treasure Cardoso MD -[facility] Work Phone: Start: 08-25-2024 ambulatory Treasure Johnson lity:[facility] Start: 08-25-2024 Non-patient / Non-visit Dr. Rowan Cardoso MD -[facility] Start: 08-20-2024 End: 08-20-2024 ambulatory Treasure Cardoso Facility:[facility] Start: 08-20-2024 End: 08-20-2024 Non-patient / Non-visit Dr. Rob Vee MD -[facility] Work Phone: Start: 08-18-2024 End: 08-18-[address] Treasure Cardoso MD -[facility] Work Phone: Start: 08-18-2024 End: 08-18-[address] Rik Abdalla Work Phone: [facility] Work Phone: Start: 08-13-2024 End: 08-13-[address] Moriah Mcdonough DO -[facility] Work Phone: Start: 08-13-2024 End: 08-13-[address] Rik Abdalla Work Phone: [facility] Work Phone: Start: 08-13-2024 End: 08-13-2024 ambulatory Moriah Mcdonough Facility:[facility] Start: 08-11-2024 End: 08-11-2024 Emergency department patient visit Dr. Richard Burgos MD -Emergency Department Work Phone: Start: 08-09-2024 End: 08-09-2024 Emergency department patient visit Dr. Juan Lovell MD -Emergency Department Work Phone: Start: 07-28-2024 End: 07-28-2024 Emergency department patient visit Dr. Rik Abdalla Work Phone: -Emergency Department Work Phone: Start: 07-15-2024 End: 07-15-[address] Treasure Cardoso MD -[facility] Work Phone: Start: 07-15-2024 End: 07-15-2024 ambulatory Treasure Cardoso Facility:[facility] Start: 07-08-2024 End: 07-08-2024 Emergency department patient visit Dr. Rik Abdalla Work Phone: -Emergency Department Work Phone: Start: 07-08-2024 End: 07-09-2024 ambulatory DELANO MAYEN Facility:[facility] Start: 07-08-2024 End: 07-08-2024 Patient encounter procedure Kathleen Beck APRN.CNP Work Phone: [facility] Comment on above: Right lower quadrant abdominal pain (Primary Dx) Start: 06-07-2024 End: 06-07-2024 Emergency department patient visit Dr. Mo Solo MD -Emergency Department Work Phone: Start: 06-04-2024 End: 06-04-2024 Emergency department patient visit Dr. Richard Burgos MD -Emergency Department Work Phone: Start: 06-04-2024 End: 06-04-2024 Emergency department patient visit Dr. Rik Abdalla -Emergency Department Work Phone: Start: 04-26-2024 End: 04-26-2024 Emergency department patient visit DELANO MAYEN [facility] Comment on above: Abscess of groin, ri ght (Primary Dx) Start: 04-01-2024 End: 04-01-2024 Emergency department patient visit Hemal Choe DO Work Phone: [facility] Comment on above: Acute left-sided low back pain with left-sided sciatica (Primary Dx) Start: 03-24-2024 End: 03-30-2024 Telephone encounter Akilah Balderrama PA-C Work Phone: [employer] Comment on above: Results Start: 03-16-2024 End: 03-16-2024 ambulatory DELANO MAYEN Facility:[facility] Start: 03-11-2024 End: 03-11-2024 Patient encounter procedure Akilah Balderrama PA-C Work Phone: [employer] Comment on above: Women's annual routi ne gynecological examination (Primary Dx); Encounter for screening for malignant neoplasm of vagina; Breast cancer screening by mammogram; Encounter for colorectal cancer screening; Screening for depression; Family history of breast cancer; Family history of colon cancer Start: 02-24-2024 End: 02-24-2024 Emergency department patient visit Jak Medellin MD Work Phone: [facility] Comment on above: Skin infection (Prim francis Dx) Start: 02-20-2024 End: 02-20-2024 Emergency department patient visit No Primary Care Physician Facility:[facility] Start: 01-29-2024 End: 01-31-2024 Evaluation and management of inpatient ASHLEY JOSE Facility:[facility] Start: 01-22-2024 End: 01-23-2024 Emergency department patient visit [facility] Facility:[facility] Start: 01-20-2024 Emergency department patient visit Facility: Start: 01-03-2024 End: 01-03-2024 Emergency department patient visit Ed Physician Provider Facility:[facility] Start: 12-20-2023 End: 12-20-2023 Emergency department patient visit Karolina Yoder MD Work Phone: [facility] Comment on above: Abdominal pain (Pt c /o RUQ pain x 1 hr, x1 emesis and dizziness x 2 days) Start: 12-20-2023 Emergency department patient visit UNKNOWN PROVIDER Facility:[facility] Start: 10-03-2023 End: 10-03-2023 ambulatory [facility] Facility:[facility] Start: 10-03-2023 End: 10-03-2023 Patient encounter procedure Wendy Heaton PA-C Work Phone: [facility]gent [facility] Comment on above: Bronchitis (Primary Dx) Start: 10-02-2023 End: 10-02-2023 Emergency department patient visit SARAH PACHECO DO Facility:[id number] Start: 09-30-2023 End: 09-30-2023 ambulatory [facility] Facility:[facility] Start: 09-30-2023 End: 09-30-2023 Office outpatient visit 15 minutes Devante Gandhi DO Work Phone: [facility] Comment on above: Viral upper respirat ory tract infection (Primary Dx); Acute viral pharyngitis Start: 08-19-2023 ambulatory Kingsley Marques MD Work Phone: [facility] Comment on above: Cat scan with dye Start: 07-29-2023 End: 07-29-2023 ambulatory [facility] Facility:[facility] Start: 07-29-2023 End: 07-29-2023 Office consultation new/estab patient 40 min Kingsley Marques MD Work Phone: [facility] Comment on above: 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); History of lumbar surgery Start: 07-19-2023 End: 07-19-2023 Emergency department patient visit REX QUEZADA MD Facility:[id number] Start: 07-04-2023 End: 07-04-2023 ambulatory [facility] Facility:[facility] Start: 07-02-2023 End: 07-02-2023 Emergency department patient visit [facility] Facility:[id number] Start: 06-30-2023 Letter encounter [facility] Work Phone: Start: 06-21-2023 End: 06-21-2023 Emergency department patient visit 8[facility] NO [facility]ILY PHYSIC[facility] Facility:[id number] Start: 06-16-2023 End: 06-16-2023 [facility] Facility:[facility] Start: 06-16-2023 End: 06-16-2023 Patient encounter procedure Jeremy Willard MD, PhD Work Phone: [facility] Comment on above: Eustachian tube diso rder, left (Primary Dx) Start: 06-07-2023 End: 06-07-2023 [facility] Facility:[facility] Start: 06-07-2023 End: 06-07-2023 Office outpatient visit 15 minutes Moriah Malin MD Work Phone: [facility] Comment on above: Acute suppurative ot itis media of left ear without spontaneous rupture of tympanic membrane, recurrence not specified (Primary Dx); TMJ tenderness, left Start: 06-04-2023 End: 06-04-2023 Emergency department patient visit [facility] NO [facility]ILY PHYSICIAN Facility:[id number] Start: 05-29-2023 End: 05-29-2023 [facility] Facility:[facility] Start: 05-29-2023 End: 05-29-2023 Patient encounter procedure Wendy Heaton PA-C Work Phone: [facility] Comment on above: Acute otitis media, left (Primary Dx) Start: 05-28-2023 End: 05-28-2023 Unlisted evaluation and management service Moriah Malin MD Work Phone: [facility] Comment on above: OPENED IN ERROR (Halley shasha Dx) Start: 05-28-2023 ambulatory [facility] Facility:[facility] Start: 04-09-2023 End: 04-09-2023 [facility] Facility:[facility] Start: 03-24-2023 Letter encounter [facility] Start: 03-10-2023 End: 03-10-2023 ambulatory KINGSLEY MARQUES Facility:[facility] Start: 11-22-2022 End: 11-22-2022 Emergency department patient visit PHYSICIAN JULY [facility] Start: 10-31-2022 End: 10-31-2022 Emergency department patient visit JIMMIELENCHO KAUFMAN [facility] Start: 10-18-2022 End: 10-18-2022 Emergency department patient visit ALEXANDR RODRIGUEZ [facility] Start: 10-11-2022 End: 10-11-2022 Emergency department patient visit PHYSICIAN JULY [facility] Start: 09-16-2022 End: 09-16-2022 Emergency department patient visit PHYSICIAN JULY [facility] Start: 09-03-2022 End: 09-03-2022 Emergency department patient visit JAK KNAPP [facility] Start: 08-26-2022 End: 08-26-2022 Emergency department patient visit PHYSICIAN JULY [facility] Start: 08-09-2022 End: 08-09-2022 Emergency department patient visit DENISA BUENROSTRO [facility] Start: 07-14-2022 End: 07-14-2022 Emergency department patient visit STEFANY JAK GONZALEZ [facility] Start: 06-21-2022 Letter encounter Blaire mahoney MD Work Phone: [facility] Start: 05-28-2022 End: 05-28-2022 Emergency department patient visit STEWART FAY BOURNE [facility] Start: 04-26-2022 End: 04-26-2022 Emergency department patient visit IRAJ DOWNING [facility] Start: 04-18-2022 End: 04-18-2022 Emergency department patient visit DUNIA GAMINOPRANAY SANTANA [facility] Start: 03-27-2022 Letter encounter Blaire mahoney MD Work Phone: [facility] Procedures Date Procedure Procedure Detail Performing Clinician Start: 08-30-2024 CT of pelvis with contrast Dr. Rik Abdalla Work Phone: Start: 08-30-[address] Rik Marshall DO Work Phone: Start: 08-30-2024 Urnls dip stick/tabl et reagent auto microscopy Dr. Rik Marshall DO Work Phone: Start: 08-28-[address] Rik Marshall DO Work Phone: Start: 08-28-2024 Computed tomography of abdomen and pelvis with intravenous contrast Dr. Rik Marshall DO Work Phone: Start: 08-25-[address] Rik arroyo DO Work Phone: Start: 08-25-2024 Fibrinogen assay, quantitative Dr. Rik Marshall DO Work Phone: Start: 08-25-2024 Laparoscopic, Salpingo-oopherectomy (Bilateral) Dr. Rik Marshall DO Work Phone: Start: 08-11-[address] Rik Marshall DO Work Phone: Start: 08-11-2024 Urnls dip stick/tabl et reagent auto microscopy Dr. Rik Marshall DO Work Phone: Start: 07-08-[address] Vielka Marshall DO Work Phone: Start: 07-08-2024 Computed tomography of abdomen and pelvis with intravenous contrast Dr. Rik Marshall DO Work Phone: Start: 07-08-[address] Rik Marshall DO Work Phone: Start: 07-08-2024 Urnls dip stick/tabl et reagent auto microscopy Dr. Rik Marshall DO Work Phone: Start: 06-07-[address] Rik Marshall DO Work Phone: Start: 06-04-2024 CT cervical spine without contrast Dr. Rik Marshall DO Work Phone: Start: 06-04-2024 CT of head without contrast Dr. Rik Marshall DO Work Phone: Start: 04-26-2024 Incision & drainage abscess simple/single Karla Sam PA-C Work Phone: Start: 03-11-2024 Adult depression screening assessment Akilah Balderrama PA-C Work Phone: Start: 01-29-2024 Lipid 1996 panel - [place] or Plasma Akilah Balderrama PA-C Work Phone: Start: 12-20-2023 Basic metabolic pane l calcium total Анна Tutic DO Work Phone: Start: 12-20-2023 Us pelvic nonobstetr ic real-time image complete Анна Tutic DO Work Phone: Start: 12-20-2023 Assay of magnesium Анна Tutic DO Work Phone: Start: 12-20-2023 Urnls dip stick/tabl et rgnt auto w/o microscopy Анна Tutic DO Work Phone: Start: 12-20-2023 Ct abdomen & pelvis w/contrast material Анна Tutic DO Work Phone: Start: 12-20-2023 Assay of lipase Анна Tu tic DO Work Phone: Start: 12-20-2023 Hepatic function panel Анна Tutic DO Work Phone: Start: 09-30-2023 STREP A MOLECULAR (POC) Devante Gandhi DO Work Phone: Start: 12-03-2018 Lipid 1996 panel - [place] or Plasma Hemal Choe DO Work Phone: H/O: surgery History of ovari an cystectomy Dr. Rik Marshall DO Work Phone: Comment on above: Left H/O: surgery History of ovari an cystectomy Dr. Treasure Cardoso MD Plan of Treatment Date Care Activity Detail Author Start: 2050 RSV Immunization for Adults (1 - 1-dose 75+ series) RSV Immunization for Adults (1 - 1-dose 75+ series) [facility] Start: 03-11-2029 Screening for malignant neoplasm of cervix Cervical Cancer Screening [facility] Start: 01-28-2029 Lipid panel [facility] Start: 07-08-2028 Lipid panel Cholesterol [facility] Start: 01-27-2027 Diabetes Screening Diabetes Screening [facility] Start: 2025 Shingles (RZV) Vaccine (1 of 2) Shingles (RZV) Vaccine (1 of 2) [facility] Start: 2025 Zoster Vaccines (1 of 2) Zoster Vaccines (1 of 2) [facility] Start: 03-12-2025 End: 03-12-2025 Patient encounter procedure [facility] Comment on above: Annual Start: 03-11-2025 Depression Screening Depression Screening [facility] Start: 03-11-2025 HIV screening HIV Screening [facility] Comment on above: Postponed from 1993 (Declined at t his time) Start: 03-11-2025 Screening for malignant neoplasm of colon [facility] Start: 12-07-2024 COVID-19 Vaccine ( season) COVID-19 Vaccine () [facility] Start: 12-07-2024 Influenza vaccination Influenza Vaccine (#1) [facility] Start: 09-18-2024 [facility] Start: 08-30-2024 [facility] Start: 08-28-2024 [facility] Start: 08-26-2024 Following clinical pathway protocol [facility] Start: 08-26-2024 Patient discharge [facility] Start: 08-25-2024 Ambulation therapy management [facility] Start: 08-25-2024 Application of intermittent pneumatic compression device [facility] Start: 08-25-2024 Elevation of head of bed [facility] Start: 08-25-2024 Following clinical pathway protocol [facility] Start: 08-25-2024 Incentive spirometry [facility] Start: 08-25-2024 Measuring intake and output [facility] Start: 08-25-2024 Notification of physician [facility] Start: 08-25-2024 Oxygen therapy [facility] Start: 08-25-2024 Procedures relating to eating and drinking [facility] Start: 08-25-2024 Taking patient vital signs [facility] Start: 08-25-2024 [facility] Start: 08-25-2024 Introduction of urinary catheter [facility] Start: 08-25-2024 Admission procedure [facility] Start: 08-25-2024 Consultation [facility] Start: 08-19-2024 Electrocardiographic procedure [facility] Start: 08-11-2024 [facility] Start: 08-09-2024 [facility] Start: 07-28-2024 [facility] Start: 07-08-2024 [facility] Start: 06-07-2024 [facility] Start: 06-07-2024 Consultation [facility] Start: 06-04-2024 [facility] Start: 06-04-2024 [facility] Start: 01-07-2024 Influenza vaccination Influenza Vaccine (#1) [facility] Start: 12-08-2023 COVID-19 Vaccine ( season) COVID-19 Vaccine ( season) [facility] Start: 12-08-2023 COVID-19 Vaccine ( season) COVID-19 Vaccine ( season) [facility] Start: 12-08-2023 Covid-19 Vaccine ( season) Covid-19 Vaccine ( season) [facility] Start: 12-08-2023 Influenza vaccination [facility] Start: 12-04-2023 Lipid panel Lipid Panel [facility] Start: 10-02-2023 End: 10-02-2023 Patient encounter procedure 10/02/2023 1:50 PM EDT Office Visit [facility] [id number] [place] [address] Kingsley Marques MD [address] [place], [place] [id number] F/U Spine Medicine [facility] Comment on above: F/U Start: 09-30-2023 End: 10-14-2023 SARS-CoV-2 (COVID-19) RNA [Presence] in Respiratory specimen by DEEPA with probe detection COVID NAAT, UPPER RESPIRATORY, ROUTINE Microbiology Routine Viral upper respiratory tract infection Expected: 09/30/2023, Expires: 10/14/2023 [facility] Work Phone: Comment on above: Expected: 09/30/2023, Expires: Start: 04-08-2023 Behavioral Health Screening Behavioral Health Screening [facility] Start: 04-08-2023 Depression Assessment Depression Assessment [facility] Start: 12-07-2022 Covid-19 Vaccine ( season) Covid-19 Vaccine ( season) [facility] Start: 12-07-2022 Influenza vaccination Influenza Vaccine (#1) [facility] Start: 01-06-2022 Influenza vaccination Influenza Vaccine (#1) [facility] Start: 2020 Cholesterol [Mass/volume] in Serum or Plasma Cholesterol [facility] Start: 2020 Diabetes Screening Diabetes Screening [facility] Start: 2020 Lipid panel Lipid Screening [facility] Start: 2020 Screening for malignant neoplasm of colon [facility] Start: 2015 Screening for malignant neoplasm of breast [facility] Start: 2005 Screening for malignant neoplasm of cervix [facility] Start: 1996 Screening for malignant neoplasm of cervix [facility] Start: 1994 DTaP/Tdap/Td Vaccines (1 - Tdap) DTaP/Tdap/Td Vaccines (1 - Tdap) [facility] Start: 1994 Hepatitis A (HAV) Vaccine (optional start 19+ years) Hepatitis A (HAV) Vaccine (optional start 19+ years) [facility] Start: 1994 Hepatitis B vaccination Hepatitis B (HBV) Vaccine (1 of 3 - 19+ 3-dose series) [facility] Start: 1994 Hepatitis B Vaccine (1 of 3 - 19+ 3-dose series) Hepatitis B Vaccine (1 of 3 - 19+ 3-dose series) [facility] Start: 1994 Hepatitis B Vaccines (1 of 3 - 19+ 3-dose series) Hepatitis B Vaccines (1 of 3 - 19+ 3-dose series) [facility] Start: 1994 Pneumococcal vaccination [facility] Start: 1994 Pneumococcal Vaccine: Pediatrics (0 to 5 Years) and At-Risk Patients (6 to 49 Years) (1 of 2 - PCV) Pneumococcal Vaccine: Pediatrics (0 to 5 Years) and At-Risk Patients (6 to 49 Years) (1 of 2 - PCV) [facility] Start: 1994 Urine microalbumin profile DTaP,Tdap,Td Vaccine (1 - Tdap) [facility] Start: 1993 Anxiety Screening Anxiety Screening [facility] Start: 1993 [facility] Start: 1993 HIV screening HIV Screening [facility] Start: 1993 Tetanus + diphtheria + acellular pertussis vaccine (product) Tdap [facility]oster [facility] Start: 1990 HIV screening HIV Test [facility] Start: 1987 Depression Screening Depression Screening [facility] Start: 1981 [facility] Start: 1981 Pneumococcal Vaccine: Pediatrics (0 to 5 Years) and At-Risk Patients (6 to 64 Years) (1 of 2 - PCV) Pneumococcal Vaccine: Pediatrics (0 to 5 Years) and At-Risk Patients (6 to 64 Years) (1 of 2 - PCV) [facility] Start: 1976 MMR Vaccines (1 of 1 - Standard series) MMR Vaccines (1 of 1 - Standard series) [facility] Start: 1975 COVID-19 Vaccine (#1) COVID-19 Vaccine (#1) [facility] Start: 1975 Hepatitis B vaccination Hepatitis B (HBV) Vaccine (1 of 3 - 3-dose series) [facility] Start: 1975 Hepatitis B Vaccine (1 of 3 - 3-dose series) Hepatitis B Vaccine (1 of 3 - 3-dose series) [facility] Start: 1975 HIV screening HIV Screening [facility] Start: 1975 Lipid panel Lipid Panel [facility] Start: 1975 Screening for malignant neoplasm of colon [facility] Bacteria identified in Urine by Culture [facility] Work Phone: Comment on above: When Specimen Available/Needed for 1 Occ urrences starting 12/20/2023 DBT Breast - bilater al screening [facility] Radiology Routine Breast cancer screening by mammogram 1 Occurrences starting 03/11/2024 [facility] Comment on above: 1 Occurrences starting 03/11/2024 PAP/HPV MRNA E6/E7 R FX HPV 16,18/45 PAP/HPV MRNA E6/E7 RFX HPV 16,18/45 Lab Routine Encounter for screening for malignant neoplasm of vagina Ordered: 03/11/2024 [facility] Work Phone: Comment on above: Ordered: 03/11/2024 Patient Education [facility] Work Phone: Patient referral [facility] Work Phone: US Pelvis [facility] End: 08-27-2024 XR Lumbar spine AP and Lateral XR LUMBAR LIMITED 2V AP/LAT Radiology Routine Chronic left-sided low back pain with left-sided sciatica 1 Occurrences starting 07/29/2023 until 08/27/2024 [facility] Work Phone: Comment on above: 1 Occurrences starting 07/29/2023 until 08/27/2024 [facility] Immunizations Immunization Date Immunization Notes Care Provider Fa [facility] 10-23-2020 COVID-19 original vaccine, full dose, monovalent (MODERNA) Moriah Malin MD Work Phone: [facility] 09-23-2020 COVID-19 original vaccine, full dose, monovalent (MODERNA) Moriah Malin MD Work Phone: [facility] Payers Date Payer Category Payer Unknown [id number] 2024 [facility] Plan / Payer (Effective 2023-Present) Name: Lm MONACO Relation to Subscriber: Self Name: Lm MONACO Payer ID: [id number] (NAIC) Group ID: Not on file Type: Indemnity Address: [address] [address] [id number] 2023 [address] [facility] [id number] 2023 Medicaid [id number] 2023 Private Health Insurance [id number] .[id number] .[id number] 2023 Unknown [id number] 2021 Unknown [id number] 2019 Unknown [id number]. 1.13.56.2. [id number] 1975 Unknown [id number] 2.16.840.1.710311.3.579.2 .902 1975 Unknown [id number] 2.16840.1.922766.3.579.2 .902 1975 Unknown [id number] 2.16840.1.747359.3.579.2 .159 1975 Unknown [id number] 2.16.840.1.746678.3.579.2 .159 1975 Unknown [id number] 2.16.840.1.966390.3.579.2 .159 1975 Unknown [id number] 2.16.840.1.784014.3.579.2 .159 1975 Unknown [id number] 2.16.840.1.624168.3.579.2 .159 1975 Unknown [id number] 2.16.840.1.826392.3.579.2 .732 1975 Unknown [id number] 2..840.1.517769.3.579.2 .732 1975 Unknown [id number] 2..840.1.014644.3.579.2 .732 1975 Unknown [id number] 2..840.1.030896.3.579.2 .732 Unknown [id number] 2.840.1.266499.3.579.2 .462 Unknown [id number] 2.840.1.983524.3.579.2 .462 Unknown [id number] 2.840.1.592012.3.579.2 .462 Unknown [id number] 2.840.1.428910.3.579.2 .462 Unknown [id number] 2.840.1.495228.3.579.2 .462 Unknown [id number] 2.840.1.216317.3.579.2 .462 Unknown [id number] 2.840.1.252452.3.579.2 .462 Unknown [id number] 2.840.1.963286.3.579.2 .462 Unknown [id number] 2.840.1.615699.3.579.2 .462 Unknown [id number] 2.840.1.320314.3.579.2 .462 Unknown [id number] 2.840.1.106025.3.579.2 .462 Unknown [id number] 2.840.1.537277.3.579.2 .462 Unknown [id number] 2.840.1.494835.3.579.2 .462 Unknown [id number] 2.840.1.792463.3.579.2 .462 Unknown [id number] 2.16.840.1.187999.3.579.2 .462 Unknown [id number] 2.16.840.1.791107.3.579.2 .462 Unknown [id number] 2.16.840.1.646647.3.579.2 .462 Unknown [id number] 2.16.840.1.058687.3.579.2 .462 Unknown [id number] 2.16.840.1.708279.3.579.2 .462 Unknown [id number] 2.16.840.1.672129.3.579.2 .462 Unknown [id number] 2.16840.1.683939.3.579.2 .462 Unknown [id number] 2.16840.1.521138.3.579.2 .462 Social History Date Type Detail Facility Start: 01-01-2020 End: 01-29-2024 Tobacco smoking status NDIS Smokes tobacco daily [facility] Start: 01-01-2020 End: 01-29-2024 Tobacco use and exposure Smokeless tobacco non-user [facility] Start: 1975 [facility] Start: 01-06-2020 Gender identity Identifies as female gender (finding) [facility] Start: 01-06-2020 Sexual orientation Heterosexual (fin ding) [facility] History of tobacco use Cigarette Smoker [facility] Start: 04-09-2023 End: 01-29-2024 History of Social function [facility] Start: 04-09-2023 End: 01-29-2024 Tobacco use panel [facility] Start: 1975 Sex Assigned At Not on file [facility] History of tobacco use Passive smoker [facility] Start: 10-23-2014 Adult Depression Screening Assessment 0 [facility] Start: 02-24-2024 End: 12-11-2024 Alcoholic beverage intake [facility] (finding[facility] Start: 12-26-2019 End: 11-06-2021 Sex Female (finding) [facility] How often to you hav e a drink containing alcohol? Never [facility] NEGATED: Highlighted row Not [facility] Medical Equipment Procedure Code Equipment Code Equipment Origin al Text Equipment Identifier Dates Laparoscopy, diagnostic DRESSING,FIBRILLAR 1X2 1 FDA Start: 08-25-2024 Laparoscopy, diagnostic SEALANT,FLOSEAL HEMOSTATIC 5ML FDA Start: 08-25-2024 Laparoscopy, diagnostic DRESSING,FIBRILLAR 1X2 1 FDA Start: 08-25-2024 Laparoscopy, diagnostic SEALANT,FLOSEAL HEMOSTATIC 5ML FDA Start: 08-25-2024 Laparoscopy, diagnostic DRESSING,FIBRILLAR 1X2 1960 FDA Start: 08-25-2024 Laparoscopy, diagnostic SEALANT,FLOSEAL HEMOSTATIC 5ML FDA Start: 08-25-2024 Laparoscopy, diagnostic DRESSING,FIBRILLAR 1X2 1960 FDA Start: 08-25-2024 Laparoscopy, diagnostic SEALANT,FLOSEAL HEMOSTATIC 5ML FDA Start: 08-25-2024 Laparoscopy, diagnostic DRESSING,FIBRILLAR 1X2 1960 FDA Start: 08-25-2024 Laparoscopy, diagnostic SEALANT,FLOSEAL HEMOSTATIC 5ML FDA Start: 08-25-2024 Laparoscopy, diagnostic DRESSING,FIBRILLAR 1X2 1960 FDA Start: 08-25-2024 Laparoscopy, diagnostic SEALANT,FLOSEAL HEMOSTATIC 5ML FDA Start: 08-25-2024 SURGIFLO HEMOSTA TIC MATRIX FDA Start: 08-25-2024 SURGIFLO HEMOSTA TIC MATRIX FDA Start: 08-25-2024 SURGIFLO HEMOSTA TIC MATRIX FDA Start: 08-25-2024 SURGIFLO HEMOSTA TIC MATRIX FDA Start: 08-25-2024 SURGIFLO HEMOSTA TIC MATRIX FDA Start: 08-25-2024 SURGIFLO HEMOSTA TIC MATRIX FDA Start: 08-25-2024 Goals Date Patient Goal Desired Activity /State Functional Status Date Assessment Result Facility 08-26-2024 Functional status Up ad say [facility] Work Phone: Mental Status Date Assessment Result Facility 08-28-2024 Cognitive function Level Of Cons ciousness Awake;Alert;Appropriate;Follow s Commands [facility] Work Phone: 08-26-2024 Cognitive function Level Of Cons ciousness Awake;Alert;Appropriate;Follow s Commands [facility] Work Phone: 08-25-2024 Cognitive function Voice/Name [facility] Work Phone: 07-28-2024 Cognitive function Level Of Cons ciousness Awake;Alert;Appropriate;Follow s Commands [facility] Work Phone: 06-04-2024 Cognitive function Level Of Cons ciousness Awake;Alert;Appropriate [facility] Work Phone: Clinical Notes 03-10-2023 to 12-11-2024 Patient InstructionsBlake Falcon APRN.CNP - 12/11/2024 2:07 PM EDTTelephone Encounter - Jo-Ann Park APRN.CNP - 11/16/2024 2:21 PM EDTPatient Instructions Note Date & Type Note Facility 12-11-2024 Instructions Blake Falcon APRN.CNP - 12/11/2024 2:08 PM EDT 1. Facial swelling (R22.0) - Acute facial swelling and pressure likely secondary to sinus infection; dental etiology less likely given absence of tooth pain and intraoral findings. - Start Augmentin. - Advised cool compresses to affected area. - Discussed avoidance of doxycycline due to patient's concerns about calcium intake and sun sensitivity. - Take Augmentin as prescribed; the prescription has been sent to [facility]. You may continue your usual dairy intake with this antibiotic, and it should not increase sun sensitivity. - Apply cool compresses to the swollen area several times a day to help reduce pressure and swelling. - Monitor your facial swelling over the next 1-2 days; it should improve on its own. If it does not begin to resolve or if you develop new symptoms, please contact the office. documented in this encounter [facility] 12-11-2024 Note HNO ID: [id number] Author: BLAKE FALCON APRN.CNP Service: ? Author Type: Nurse Practitioner Type: Progress Notes Filed: 12/11/2024 14:09 Note Text: URGENT CARE DINH Alvarado is a 49 year old female. Patient presents with: Edema: Right side of face swelling, pressure in area, no pain x this am Edema The patient is a 49-year-old female presenting with facial swelling and pressure. Facial Swelling and Pressure: - Acute onset of facial swelling and pressure, noticed upon waking this morning. - Swelling localized to the right side of the face, extending from the cheek to the upper jaw. - Describes a ton of pressure but denies pain. - Recent history of nasal congestion and suspected allergies. - Taking Benadryl and ibuprofen with minimal relief. - Denies ear pain, hearing difficulties, sore throat, cough, or facial pruritus. - Denies dental pain. Review of Systems Head: (+) facial swelling, (+) facial pressure, (-) facial pain Ears/Nose/Mouth/Throat: (+) nasal congestion, (-) ear pain, (-) hearing difficulty, (-) tooth pain, (-) sore throat Respiratory: (-) cough Skin: (-) facial pruritus Objective BP 94/62 Pulse 97 Temp 36.5 ?C (97.7 ?F) Resp 20 Wt 54 kg (119 lb 0.8 oz) SpO2 98% BMI 20.43 kg/m? PAST MEDICAL HISTORY Diagnosis Date - Abnormal Pap smear of vagina - Anemia - Bipolar disorder (HCC) - BRCA negative 03/2024 Negative Devendra Empower Panel - Constipation - Depression - Diarrhea - Dyspareunia in female - Hypotension - Interstitial cystitis - Migraines - Ovarian cyst - Pulmonary embolism (HCC) after back surgery PAST SURGICAL HISTORY Procedure Laterality Date - BACK SURGERY HX 2006 L3 AND L4 - BLADDER SURGERY HX 2009 bladder distention x4 - LIGATE FALLOPIAN TUBE 2004 - S BALLOON,UTERINE ABLATION [id number] 2005 - VAGINAL HYSTERECTOMY 2013 ovaries remain ALLERGIES Flagyl [Metronidazole], Flagyl [Metronidazole], Ketorolac Tromethamine, and Nalbuphine MEDICATIONS - clonazePAM (KLONOPIN) 0.5 mg tablet Take 0.5 mg by mouth once daily as needed. - ARIPiprazole (ABILIFY) 15 mg tablet Take 20 mg by mouth once daily. - amoxicillin-clavulanate potassium (AUGMENTIN) 875-125 mg per tablet Take 1 tablet by mouth two times a day for 7 days. - doxycycline hyclate (VIBRAMYCIN) 100 mg capsule Take 1 capsule by mouth two times a day. - doxycycline hyclate (VIBRAMYCIN) 100 mg capsule Take 1 capsule by mouth two times a day. - QUEtiapine (SEROQUEL) 25 mg tablet Take 25 mg by mouth as needed. (Patient not taking: Reported on 11/14/2024) - docusate sodium (COLACE ORAL) Take 1 tablet by mouth once daily. FAMILY HISTORY Problem Relation Age of Onset - other (BRCA Negative?) Mother - Ovarian cancer Maternal Grandmother 69 - Colon Cancer Maternal Grandfather 72 - other (transgender male to female) Son - Breast Cancer Paternal Aunt 47 - Brain Cancer Maternal cousin 14 - Colon Cancer Maternal cousin 34 - Colon Cancer Maternal cousin 39 - Colon Cancer Other 47 SOCIAL HISTORY[1] Physical Exam Vitals and nursing note reviewed. Constitutional: General: She is not in acute distress. Appearance: Normal appearance. She is not ill-appearing. HENT: Head: Right Ear: Tympanic membrane, ear canal and external ear normal. Left Ear: Tympanic membrane, ear canal and external ear normal. Nose: Nose normal. Mouth/Throat: Mouth: Mucous membranes are moist. Dentition: No dental tenderness, gingival swelling, dental abscesses or gum lesions. Pharynx: Oropharynx is clear. Uvula midline. No pharyngeal swelling, oropharyngeal exudate, posterior oropharyngeal erythema or uvula swelling. Cardiovascular: Rate and Rhythm: Normal rate and regular rhythm. Heart sounds: Normal heart sounds. Pulmonary: Effort: Pulmonary effort is normal. No respiratory distress. Breath sounds: Normal breath sounds. No wheezing or rales. Lymphadenopathy: Cervical: No cervical adenopathy. Skin: General: Skin is warm and dry. Findings: No erythema or rash. Neurological: Mental Status: She is alert. { 1. Facial swelling (R22.0) - Acute facial swelling and pressure likely secondary to sinus infection; dental etiology less likely given absence of tooth pain and intraoral findings. - Start Augmentin. - Advised cool compresses to affected area. - Discussed avoidance of doxycycline due to patient's concerns about calcium intake and sun sensitivity. - Follow-up with your PCP in 3-5 days if symptoms have not improved or sooner if symptoms worsen - Discussed red flags and need for immediate medical evaluation if any occur. - Discussed supportive care treatment with fluids, rest and analgesia. - Discussed expected course of illness Blake Falcon APRN.CUSTOMER QUALITY ENGINEER and Recording using YuMe software for draft documentation of the visit was discussed with the patient/authorized operations support representative; all questi (more content not included)... [facility] 12-11-2024 History of Presen t illness Narrative Images from the original note were not included. URGENT CARE DINH Alvarado is a 49 year old female. Patient presents with: Edema: Right side of face swelling, pressure in area, no pain x this am Edema The patient is a 49-year-old female presenting with facial swelling and pressure. Facial Swelling and Pressure: - Acute onset of facial swelling and pressure, noticed upon waking this morning. - Swelling localized to the right side of the face, extending from the cheek to the upper jaw. - Describes a ton of pressure but denies pain. - Recent history of nasal congestion and suspected allergies. - Taking Benadryl and ibuprofen with minimal relief. - Denies ear pain, hearing difficulties, sore throat, cough, or facial pruritus. - Denies dental pain. Review of Systems Head: (+) facial swelling, (+) facial pressure, (-) facial pain Ears/Nose/Mouth/Throat: (+) nasal congestion, (-) ear pain, (-) hearing difficulty, (-) tooth pain, (-) sore throat Respiratory: (-) cough Skin: (-) facial pruritus Objective BP 94/62 Pulse 97 Temp 36.5 C (97.7 F) Resp 20 Wt 54 kg (119 lb 0.8 oz) SpO2 98% BMI 20.43 kg/m PAST MEDICAL HISTORY Diagnosis Date Abnormal Pap smear of vagina Anemia Bipolar disorder (HCC) BRCA negative 03/2024 Negative Devendra Empower Panel Constipation Depression Diarrhea Dyspareunia in female Hypotension Interstitial cystitis Migraines Ovarian cyst Pulmonary embolism (HCC) after back surgery PAST SURGICAL HISTORY Procedure Laterality Date BACK SURGERY HX 2006 L3 & L4 BLADDER SURGERY HX 2009 bladder distention x4 LIGATE FALLOPIAN TUBE 2004 S BALLOON,UTERINE ABLATION [id number] 2005 VAGINAL HYSTERECTOMY 2012 ovaries remain ALLERGIES Flagyl [Metronidazole], Flagyl [Metronidazole], Ketorolac Tromethamine, and Nalbuphine MEDICATIONS clonazePAM (KLONOPIN) 0.5 mg tablet Take 0.5 mg by mouth once daily as needed. ARIPiprazole (ABILIFY) 15 mg tablet Take 20 mg by mouth once daily. amoxicillin-clavulanate potassium (AUGMENTIN) 875-125 mg per tablet Take 1 tablet by mouth two times a day for 7 days. doxycycline hyclate (VIBRAMYCIN) 100 mg capsule Take 1 capsule by mouth two times a day. doxycycline hyclate (VIBRAMYCIN) 100 mg capsule Take 1 capsule by mouth two times a day. QUEtiapine (SEROQUEL) 25 mg tablet Take 25 mg by mouth as needed. (Patient not taking: Reported on 11/14/2024) docusate sodium (COLACE ORAL) Take 1 tablet by mouth once daily. FAMILY HISTORY Problem Relation Age of Onset other (BRCA Negative?) Mother Ovarian cancer Maternal Grandmother 69 Colon Cancer Maternal Grandfather 72 other (transgender male to female) Son Breast Cancer Paternal Aunt 47 Brain Cancer Maternal cousin 14 Colon Cancer Maternal cousin 34 Colon Cancer Maternal cousin 39 Colon Cancer Other 47 SOCIAL HISTORY[1] Physical Exam Vitals and nursing note reviewed. Constitutional: General: She is not in acute distress. Appearance: Normal appearance. She is not ill-appearing. HENT: Head: Right Ear: Tympanic membrane, ear canal and external ear normal. Left Ear: Tympanic membrane, ear canal and external ear normal. Nose: Nose normal. Mouth/Throat: Mouth: Mucous membranes are moist. Dentition: No dental tenderness, gingival swelling, dental abscesses or gum lesions. Pharynx: Oropharynx is clear. Uvula midline. No pharyngeal swelling, oropharyngeal exudate, posterior oropharyngeal erythema or uvula swelling. Cardiovascular: Rate and Rhythm: Normal rate and regular rhythm. Heart sounds: Normal heart sounds. Pulmonary: Effort: Pulmonary effort is normal. No respiratory distress. Breath sounds: Normal breath sounds. No wheezing or rales. Lymphadenopathy: Cervical: No cervical adenopathy. Skin: General: Skin is warm and dry. Findings: No erythema or rash. Neurological: Mental Status: She is alert. { 1. Facial swelling (R22.0) - Acute facial swelling and pressure likely secondary to sinus infection; dental etiology less likely given absence of tooth pain and intraoral findings. - Start Augmentin. - Advised cool compresses to affected area. - Discussed avoidance of doxycycline due to patient's concerns about calcium intake and sun sensitivity. - Follow-up with your PCP in 3-5 days if symptoms have not improved or sooner if symptoms worsen - Discussed red flags and need for immediate medical evaluation if any occur. - Discussed supportive care treatment with fluids, rest and analgesia. - Discussed expected course of illness Blake Falcon APRN.CNP and Recording using YuMe software for draft documentation of the visit was discussed with the patient/authorized operations support representative; all questions welcomed and answered. Patient/authorized operations support representative agreed to proceed Disposition The patient was discharged. Procedures [1] Social History Tobacco Use Smoking status: Every Day Current packs/day: 1.00 Types: Cigarettes Passive exposure: Current Smokeless tobacco: Never Vaping Use Vaping status: Never Used Substance Use Topics Alcohol use: Not Currently Drug use: Never documented in this encounter [facility] 11-16-2024 Telephone encounter Note Medicine sent to [facility] Patient notified [facility] 11-16-2024 Miscellaneous Notes Medicine sent to [facility] Patient notified Patient calls to request doxycycline be sent to [facility]. Per patient, Sent to the wrong pharmacy previously. Pended. Please review and advise, Zeina Eller RN documented in this encounter [facility] 11-16-2024 Telephone encounter Note Patient calls to request doxycycline be sent to [facility]. Per patient, Sent to the wrong pharmacy previously. Pended. Please review and advise, Zeina Eller RN [facility] 11-16-2024 Instructions Jo-Ann Park APRN.CNP - 11/16/2024 1:22 PM EDT - Take doxycycline as prescribed: one tablet by mouth twice daily for 7 days. Start tonight after you eat. The prescription has been sent to [facility] on . - While taking doxycycline, avoid direct sun exposure and wear sunscreen; regular use of sunscreen is recommended. - You may still go for your walk today and then begin the antibiotic afterward. - A work-note documenting your absence on Saturday has been provided for your employer. documented in this encounter [facility] 11-16-2024 Note HNO ID: [id number] Author: JO-ANN PARK APRN.RENEE Service: ? Author Type: Nurse Practitioner Type: Progress Notes Filed: 11/16/2024 13:23 Note Text: URGENT CARE DINH Alvarado is a 49 year old female. Patient presents with: Trauma: Insect bite on left knee, painful Trauma Left Knee Bite: - Onset: Saturday while camping at near [facility]. - [place] a burn and sting through long pants while walking in a field. - Visible bite chandler in the center of the affected area. - Reports increased redness since initial presentation. - Pain described as significant, especially when ascending stairs. - Denies seeing what bit her. She was here on 11/14/2024 for same. Was instructed on supportive measures, but today worsening Bipolar Depression: - Managed with Abilify 20 mg daily and Klonopin 0.5 mg. - Experiences white coat syndrome. DVT: - History of DVT secondary to surgery in 2005. - Previously treated with anticoagulants. Allergies: - Allergic to Flagyl. PAST MEDICAL HISTORY[1] PAST SURGICAL HISTORY Procedure Laterality Date BACK SURGERY HX 2006 L3 AND L4 BLADDER SURGERY HX 2009 bladder distention x4 LIGATE FALLOPIAN TUBE 2004 S BALLOON,UTERINE ABLATION [id number] 2005 VAGINAL HYSTERECTOMY 2012 ovaries remain ALLERGIES Flagyl [Metronidazole], Flagyl [Metronidazole], Ketorolac Tromethamine, and Nalbuphine MEDICATIONS clonazePAM (KLONOPIN) 0.5 mg tablet Take 0.5 mg by mouth once daily as needed. ARIPiprazole (ABILIFY) 15 mg tablet Take 15 mg by mouth once daily. doxycycline hyclate (VIBRAMYCIN) 100 mg capsule Take 1 capsule by mouth two times a day. doxycycline hyclate (VIBRAMYCIN) 100 mg capsule Take 1 capsule by mouth two times a day. QUEtiapine (SEROQUEL) 25 mg tablet Take 25 mg by mouth as needed. (Patient not taking: Reported on 11/14/2024) docusate sodium (COLACE ORAL) Take 1 tablet by mouth once daily. FAMILY HISTORY[2] SOCIAL HISTORY[3] Review of Systems Musculoskeletal: (+) left knee pain, (+) left knee burning sensation Skin: (+) left knee erythema Psychiatric: (+) nervousness Objective BP 100/64 Pulse 100 Temp 37.2 ?C (98.9 ?F) Resp 18 Wt 53.4 kg (117 lb 11.6 oz) SpO2 98% BMI 20.21 kg/m? Physical Exam Vitals and nursing note reviewed. Constitutional: General: She is not in acute distress. Appearance: Normal appearance. She is normal weight. She is not ill-appearing, toxic-appearing or diaphoretic. HENT: Head: Normocephalic and atraumatic. Right Ear: Ear canal and external ear normal. Left Ear: Ear canal and external ear normal. Nose: Nose normal. No congestion or rhinorrhea. Mouth/Throat: Mouth: Mucous membranes are moist. Pharynx: No oropharyngeal exudate or posterior oropharyngeal erythema. Eyes: General: Right eye: No discharge. Left eye: No discharge. Extraocular Movements: Extraocular movements intact. Conjunctiva/sclera: Conjunctivae normal. Pupils: Pupils are equal, round, and reactive to light. Cardiovascular: Rate and Rhythm: Normal rate and regular rhythm. Pulses: Normal pulses. Heart sounds: Normal heart sounds. No murmur heard. No friction rub. Pulmonary: Effort: Pulmonary effort is normal. No respiratory distress. Breath sounds: Normal breath sounds. No stridor. No wheezing, rhonchi or rales. Chest: Chest wall: No tenderness. Abdominal: General: Abdomen is flat. There is no distension. Palpations: Abdomen is soft. There is no mass. Tenderness: There is no abdominal tenderness. There is no right CVA tenderness, left CVA tenderness, guarding or rebound. Hernia: No hernia is present. Musculoskeletal: General: Tenderness present. No swelling, deformity or signs of injury. Normal range of motion. Cervical back: Normal range of motion and neck supple. No rigidity. Right lower leg: No edema. Left lower leg: No edema. Comments: Left anterior knee with 2 cm erythematous circular area (NO BULLS EYE) No abscess No petechia No crepitus No streaking Full active and passive ROM +neuro +sensation Lymphadenopathy: Cervical: No cervical adenopathy. Skin: General: Skin is warm and dry. Coloration: Skin is not jaundiced or pale. Findings: No bruising, erythema, lesion or rash. Neurological: General: No focal deficit present. Mental Status: She is alert and oriented to person, place, and time. Cranial Nerves: No cranial nerve deficit. Sensory: No sensory deficit. Motor: No weakness. Coordination: Coordination normal. Gait: Gait normal. Psychiatric: Mood and Affect: Mood normal. Behavior: Behavior normal. Thought Content: Thought content normal. Judgment: Judgment normal. { 1. Insect bite of left knee, subsequent encounter (P87.156X) - Acute insect bite on left knee with increasing erythema since Saturday; pain worsened with ambulation. - Start doxycycline 1 tablet PO BID for 7 days. - Educated patient on Lvmae (more content not included)... [facility] 11-16-2024 History of Presen t illness Narrative URGENT CARE DINHTHERESA Alvarado is a 49 year old female. Patient presents with: Trauma: Insect bite on left knee, painful Trauma Left Knee Bite: - Onset: Saturday while camping at near [facility]. - [place] a burn and sting through long pants while walking in a field. - Visible bite chandler in the center of the affected area. - Reports increased redness since initial presentation. - Pain described as significant, especially when ascending stairs. - Denies seeing what bit her. She was here on 11/14/2024 for same. Was instructed on supportive measures, but today worsening Bipolar Depression: - Managed with Abilify 20 mg daily and Klonopin 0.5 mg. - Experiences white coat syndrome. DVT: - History of DVT secondary to surgery in 2005. - Previously treated with anticoagulants. Allergies: - Allergic to Flagyl. PAST MEDICAL HISTORY[1] PAST SURGICAL HISTORY Procedure Laterality Date BACK SURGERY HX 2006 L3 & L4 BLADDER SURGERY HX 2009 bladder distention x4 LIGATE FALLOPIAN TUBE 2004 S BALLOON,UTERINE ABLATION [id number] 2005 VAGINAL HYSTERECTOMY 2012 ovaries remain ALLERGIES Flagyl [Metronidazole], Flagyl [Metronidazole], Ketorolac Tromethamine, and Nalbuphine MEDICATIONS clonazePAM (KLONOPIN) 0.5 mg tablet Take 0.5 mg by mouth once daily as needed. ARIPiprazole (ABILIFY) 15 mg tablet Take 15 mg by mouth once daily. doxycycline hyclate (VIBRAMYCIN) 100 mg capsule Take 1 capsule by mouth two times a day. doxycycline hyclate (VIBRAMYCIN) 100 mg capsule Take 1 capsule by mouth two times a day. QUEtiapine (SEROQUEL) 25 mg tablet Take 25 mg by mouth as needed. (Patient not taking: Reported on 11/14/2024) docusate sodium (COLACE ORAL) Take 1 tablet by mouth once daily. FAMILY HISTORY[2] SOCIAL HISTORY[3] Review of Systems Musculoskeletal: (+) left knee pain, (+) left knee burning sensation Skin: (+) left knee erythema Psychiatric: (+) nervousness Objective BP 100/64 Pulse 100 Temp 37.2 C (98.9 F) Resp 18 Wt 53.4 kg (117 lb 11.6 oz) SpO2 98% BMI 20.21 kg/m Physical Exam Vitals and nursing note reviewed. Constitutional: General: She is not in acute distress. Appearance: Normal appearance. She is normal weight. She is not ill-appearing, toxic-appearing or diaphoretic. HENT: Head: Normocephalic and atraumatic. Right Ear: Ear canal and external ear normal. Left Ear: Ear canal and external ear normal. Nose: Nose normal. No congestion or rhinorrhea. Mouth/Throat: Mouth: Mucous membranes are moist. Pharynx: No oropharyngeal exudate or posterior oropharyngeal erythema. Eyes: General: Right eye: No discharge. Left eye: No discharge. Extraocular Movements: Extraocular movements intact. Conjunctiva/sclera: Conjunctivae normal. Pupils: Pupils are equal, round, and reactive to light. Cardiovascular: Rate and Rhythm: Normal rate and regular rhythm. Pulses: Normal pulses. Heart sounds: Normal heart sounds. No murmur heard. No friction rub. Pulmonary: Effort: Pulmonary effort is normal. No respiratory distress. Breath sounds: Normal breath sounds. No stridor. No wheezing, rhonchi or rales. Chest: Chest wall: No tenderness. Abdominal: General: Abdomen is flat. There is no distension. Palpations: Abdomen is soft. There is no mass. Tenderness: There is no abdominal tenderness. There is no right CVA tenderness, left CVA tenderness, guarding or rebound. Hernia: No hernia is present. Musculoskeletal: General: Tenderness present. No swelling, deformity or signs of injury. Normal range of motion. Cervical back: Normal range of motion and neck supple. No rigidity. Right lower leg: No edema. Left lower leg: No edema. Comments: Left anterior knee with 2 cm erythematous circular area (NO BULLS EYE) No abscess No petechia No crepitus No streaking Full active and passive ROM +neuro +sensation Lymphadenopathy: Cervical: No cervical adenopathy. Skin: General: Skin is warm and dry. Coloration: Skin is not jaundiced or pale. Findings: No bruising, erythema, lesion or rash. Neurological: General: No focal deficit present. Mental Status: She is alert and oriented to person, place, and time. Cranial Nerves: No cranial nerve deficit. Sensory: No sensory deficit. Motor: No weakness. Coordination: Coordination normal. Gait: Gait normal. Psychiatric: Mood and Affect: Mood normal. Behavior: Behavior normal. Thought Content: Thought content normal. Judgment: Judgment normal. { 1. Insect bite of left knee, subsequent encounter (S80.695W) - Acute insect bite on left knee with increasing erythema since Saturday; pain worsened with ambulation. - Start doxycycline 1 tablet PO BID for 7 days. - Educated patient on sun avoidance and use of sunscreen while taking doxycycline. Follow up with PCP for continued symptoms. and Recording using YuMe software for draft documentation of the visit was discussed with the patient/authorized operations support representative; all questions welcomed and answered. 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 No date: Constipation No date: Depression No date: Diarrhea No date: Dyspareunia in female No date: Hypotension No date: Interstitial cystitis No date: Migraines No date: Ovarian cyst No date: Pulmonary embolism (HCC) Comment: after back surgery [2] Review of patient's family history indicates: Problem: other (BRCA Negative?) Relation: Mother Age of Onset: (Not Specified) Problem: Ovarian cancer Relation: Maternal Grandmother Age of Onset: 69 Problem: Colon Cancer Relation: Maternal Grandfather Age of Onset: 72 Problem: other (transgender male to female) Relation: Son Age of Onset: (Not Specified) Problem: Breast Cancer Relation: Paternal Aunt Age of Onset: 47 Problem: Brain Cancer Relation: Maternal cousin Age of Onset: 14 Problem: Colon Cancer Relation: Maternal cousin Age of Onset: 34 Problem: Colon Cancer Relation: Maternal cousin Age of Onset: 39 Problem: Colon Cancer Relation: Other Age of Onset: 47 [3] Social History Tobacco Use Smoking status: Every Day Current packs/day: 1.00 Types: Cigarettes Passive exposure: Current Smokeless tobacco: Never Vaping Use Vaping status: Never Used Substance Use Topics Alcohol use: Not Currently Drug use: Never documented in this encounter [facility] 11-14-2024 Note HNO ID: [id number] Author: GIDEON ACE APRN.CUSTOMER QUALITY ENGINEER Service: ? Author Type: Nurse Practitioner Type: Progress Notes Filed: 11/14/2024 10:58 Note Text: URGENT CARE DINH Alvarado is a 49 year old female. Patient presents with: Trauma: Insect bite on left knee x 1 day HPI Insect Bite: - Bitten by an unknown insect while camping last night. - Describes initial sensation as burned really bad, like it was on fire. - Area of the bite has enlarged since last night. - Concerns about potential Lyme disease. - Reports significant anxiety. Review of Systems Skin: (+) burning pain at bite site, (+) expanding erythema Psychiatric: (+) anxiety Objective BP 100/68 Pulse 78 Temp 36.1 ?C (97 ?F) Resp 20 Wt 54.6 kg (120 lb 5.9 oz) SpO2 99% BMI 20.66 kg/m? Physical Exam General: No acute distress. Skin: Erythematous area on the leg, blanchable erythema, no evidence of foreign bodies or black areas. { 1. Insect bite of left knee, initial encounter (S80.693A) - Acute insect bite with localized inflammatory response; no evidence of infection or retained foreign body. - Unlikely to be a tick bite or Lyme disease based on presentation and history. - Advised symptomatic management with Motrin or Tylenol and application of ice for comfort. - Educated on expected course of inflammation, signs of infection (red streaking, non-blanchable warmth, continued expansion), and when to seek further care. and Recording using ambient AI software for draft documentation of the visit was discussed with the patient/authorized operations support representative; all questions welcomed and answered. Patient/authorized operations support representative agreed to proceed MDM Procedures [facility] 11-14-2024 History of Presen t illness Narrative [employer] Isacc Alvarado is a 49 year old female. Patient presents with: Trauma: Insect bite on left knee x 1 day HPI Insect Bite: - Bitten by an unknown insect while camping last night. - Describes initial sensation as burned really bad, like it was on fire. - Area of the bite has enlarged since last night. - Concerns about potential Lyme disease. - Reports significant anxiety. Review of Systems Skin: (+) burning pain at bite site, (+) expanding erythema Psychiatric: (+) anxiety Objective BP 100/68 Pulse 78 Temp 36.1 C (97 F) Resp 20 Wt 54.6 kg (120 lb 5.9 oz) SpO2 99% BMI 20.66 kg/m Physical Exam General: No acute distress. Skin: Erythematous area on the leg, blanchable erythema, no evidence of foreign bodies or black areas. { 1. Insect bite of left knee, initial encounter (S80.262A) - Acute insect bite with localized inflammatory response; no evidence of infection or retained foreign body. - Unlikely to be a tick bite or Lyme disease based on presentation and history. - Advised symptomatic management with Motrin or Tylenol and application of ice for comfort. - Educated on expected course of inflammation, signs of infection (red streaking, non-blanchable warmth, continued expansion), and when to seek further care. and Recording using ambient AI software for draft documentation of the visit was discussed with the patient/authorized operations support representative; all questions welcomed and answered. Patient/authorized operations support representative agreed to proceed MDM Procedures documented in this encounter [facility] 08-30-2024 Radiology Diagnostic study note [facility] Imaging Services [address] [place] [address] Pelvis WITH IV Contrast MR#: [id number] Acct: [id number] Name: LM ALVARADO Rep #: [id number] : 1975 F 49 From: Pet er Peer DO PCP: Care Physician,No Primary Status: REG ER Study:Pelvis WITH IV Contrast Date of Exam: 08/30/24 Exam# [id number] Ordering Dr: Tray Emery DO PROCEDURE: PELVIS WITH IV CONTRAST REASON FOR EXAM: PAIN, ABD WALL HEMATOMA. Postop oophorectomy on 08/2024 history also includes hysterectomy and salpingo oophorectomy ovarian cystectomy but does not say exactly in fall this was done on 08 25 2024 . TECHNIQUE: Pelvis CT with intravenous contrast. CONTRAST: Isovue 370 VOLUME: 87 mL IV One or more dose reduction techniques were used (e.g., Automated exposure control, adjustment of the mA and/or kV according to patient size, use of iterative reconstruction technique). RADIATION DOSE SUMMARY: CTDlvol: 24.64 mGy DLP: 855.31 mGycm COMPARISON: 2024 and others FINDINGS: Limited inclusion of liver, spleen, gallbladder and kidneys. Simple cysts rightkidney requiring no follow-up. Otherwise no significant findings. Bladder: Unremarkable Reproductive Organs: Status post hysterectomy. Pockets of free fluid deep in the pelvis and cul-de-sac and presacral spaces Bowel: Unremarkable. Appendix: A normal appendix is identified. Lymph nodes: No lymph nodes are identified that might be considered pathologic by size criteria Vasculature: Unremarkable. Peritoneum / Retroperitoneum: Postoperative fluid or seroma the pelvis Subcutaneous soft tissue swelling of the lateral right abdomen and right lower abdominal quadrant. Hypodense lesion of the subcutaneous tissues of the anterior right lower abdomen measuring up to 10.3 x 5.6 cm. This could be a seroma related to recent surgery. Evolving abscess cannot be entirelyexcluded due to time of surgery. Pneumoperitoneum, likely postoperative changes. Bones: No aggressive bone lesions CT/Pelvis WITH IV Contrast IMPRESSION: Right lower quadrant skin wound, not significantly changed from August 28. If there is concern for abscess based on pain and redness consider aspiration for culture and sensitivity Postoperative fluid or seroma with pockets of fluid deep in the pelvis [facility] CC: Dr. Love Emery, DO; No Primary Care Physician ~ Senior Technical Support Analyst: Signed [facility] 08-26-2024 Consult note [facility] 08-26-2024 Consult note [facility] 08-26-2024 Consult note [facility] 08-26-2024 Consult note [facility] 08-26-2024 Progress note Note Date/Time August 26, 2024 8:07am [facility] Medical Records Department [address] [place] [address] Progress Note - OBGYN 08/26/24 0805 MR#: [id number] Acct: [id number] Name: LM ALVARADO Rep #:[id number] : 1975 49 From: Treasure madsen MD PCP: Care Physician,No Primary Status :ADM IN Location: [place] [address] Subjective Subjective Patient doing better still having pain- discuswed better oral pain control with nursing staff. Tolerating PO. Ambulating without difficulty. Denies chest pain, shortness of breath, calf pain/swelling, fevers, chills, lightheadedness. Objective Data Objective Data Vital Signs: Vital Signs Temp Pulse Resp BP Pulse Ox O2 Del Method 97.9 F 79 16 101/57 L 98 Room Air 08/26/24 06:00 08/26/24 06:00 08/26/24 06:00 08/26/24 06:00 08/26/24 06:00 08/26/24 06:00 Oxygen Delivery Method Room Air Weight: 127 lb 3.307 oz Body Mass Index (BMI) 21.4 Intake & Output: Intake and Output for Last 24 Hours 08/24/24 08/25/24 08/26/24 23:59 23:59 23:59 Intake Total 1999 1090.75 / 1090.75 Output Total 50 / 50 300 / 300 Balance 1949 / 1949 790.75 / 790.75 Lab / Micro Data 08/26/24 04:46 Labs: Laboratory Results - last 24 hr 08/25/24 17:20: WBC 20.3 H, RBC 4.21, Hgb 13.5, Hct 39.3, MCV 93.3, MCH 32.1 H, MCHC 34.4, RDW Std Deviation 44.2 H, RDW Coeff of Angel 13.0, Plt Count 255, MPV 9.5 08/25/24 17:30: PT 14.8, INR 1.1, APTT 30.8, Fibrinogen 309 08/25/24 18:40: WBC 19.3 H, RBC 4.19 L, Hgb 13.5, Hct 39.0, MCV 93.1, MCH 32.2 H, MCHC 34.6, RDW Std Deviation 44.6 H, RDW Coeff of Angel 13.1, Plt Count 236, MPV9.6, Immature Gran % (Auto) 0.600, Neut % (Auto) 93.2 H, Lymph % (Auto) 5.0 L, Lamb % (Auto) 0.9, Eos % (Auto) 0.0, Baso % (Auto) 0.3, Absolute Neuts (auto) 18.0 H, Absolute Lymphs (auto) 0.97, Nucleated RBC % 0 08/26/24 04:46: WBC 16.9 H, RBC 3.75 L, Hgb 12.0, Hct 34.7 L, MCV 92.5, MCH 32.0, MCHC 34.6, RDW Std Deviation 44.1 H, RDW Coeff of Angel 13.0, Plt Count 254,MPV 9.5 ROS Constitutional Constitutional: Reports systems reviewed and no addt'l complaints, except as documented Cardiovascular Cardiovascular: Reports systems reviewed and no addt'l complaints, except as documented Respiratory/Chest Respiratory/Chest: Reports systems reviewed and no addt'l complaints, except as documented Gastrointestinal Gastrointestinal: Reports systems reviewed and no addt'l complaints, except as documented Physical Exam Const alert, oriented x3 and no apparent distress HEENT Head and Scalp: atraumatic Resp normal respiratory effort GI soft to palpation GI Narrative: tender over right lower but non distended, no mass Assessment & Plan (1) Abdominal wall hematoma: COMMENT: Immediately postop right trocar site, s/p evacuation and management (2) S/P right oophorectomy: (3) History of ovarian cystectomy: COMMENT: Left (4) Status post bilateral salpingectomy: PLAN: Plan pain management today and ambulation, dc home, discussed dc home today and startlovenox tonight. fu in 2 weeks 08/26/24 0807 <Electronically signed by Treasure Cardoso MD> Cosigner Signature (if applicable): CC: ~ Signed [facility] Work Phone: 1(918) 356-716105-21-2025 Progress note [facility] Medical Records Department [address] [place] [address] Progress Note - OBGYN 08/26/24 0805 MR#: [id number] Acct: [id number] Name: LM ALVARADO Rep #:[id number] : 1975 49 From: Treasure madsen MD PCP: Care Physician,No Primary Status :ADM IN Location: [facility] [id number] Subjective Subjective Patient doing better still having pain- discuswed better oral pain control with nursing staff. Tolerating PO. Ambulating without difficulty. Denies chest pain, shortness of breath, calf pain/swelling, fevers, chills, lightheadedness. Objective Data Objective Data Vital Signs: Vital Signs Temp Pulse Resp BP Pulse Ox O2 Del Method 97.9 F 79 16 101/57 L 98 Room Air 08/26/24 06:00 08/26/24 06:00 08/26/24 06:00 08/26/24 06:00 08/26/24 06:00 08/26/24 06:00 Oxygen Delivery Method Room Air Weight: 127 lb 3.307 oz Body Mass Index (BMI) 21.4 Intake & Output: Intake and Output for Last 24 Hours 08/24/24 08/25/24 08/26/24 23:59 23:59 23:59 Intake Total 1999 / 1999 1090.75 / 1090.75 Output Total 50 / 50 300 / 300 Balance 1949 / 1950 790.75 / 790.75 Lab / Micro Data 08/26/24 04:46 Labs: Laboratory Results - last 24 hr 08/25/24 17:20: WBC 20.3 H, RBC 4.21, Hgb 13.5, Hct 39.3, MCV 93.3, MCH 32.1 H, MCHC 34.4, RDW Std Deviation 44.2 H, RDW Coeff of Angel 13.0, Plt Count 255, MPV 9.5 08/25/24 17:30: PT 14.8, INR 1.1, APTT 30.8, Fibrinogen 309 08/25/24 18:40: WBC 19.3 H, RBC 4.19 L, Hgb 13.5, Hct 39.0, MCV 93.1, MCH 32.2 H, MCHC 34.6, RDW Std Deviation 44.6 H, RDW Coeff of Angel 13.1, Plt Count 236, MPV9.6, Immature Gran % (Auto) 0.600, Neut% (Auto) 93.2 H, Lymph % (Auto) 5.0 L, Lamb % (Auto) 0.9, Eos % (Auto) 0.0, Baso % (Auto) 0.3, Absolute Neuts (auto) 18.0 H, Absolute Lymphs (auto) 0.97, Nucleated RBC % 0 08/26/24 04:46: WBC 16.9 H, RBC 3.75 L, Hgb 12.0, Hct 34.7 L, MCV 92.5, MCH 32.0, MCHC 34.6, RDW Std Deviation 44.1 H, RDW Coeff of Angel 13.0, Plt Count 254,MPV 9.5 ROS Constitutional Constitutional: Reports systems reviewed and no addt'l complaints, except as documented Cardiovascular Cardiovascular: Reports systems reviewed and no addt'l complaints, except as documented Respiratory/Chest Respiratory/Chest: Reports systems reviewed and no addt'l complaints, except as documented Gastrointestinal Gastrointestinal: Reports systems reviewed and no addt'l complaints, except as documented Physical Exam Const alert, oriented x3 and no apparent distress HEENT Head and Scalp: atraumatic Resp normal respiratory effort GI soft to palpation GI Narrative: tender over right lower but non distended, no mass Assessment & Plan (1) Abdominal wall hematoma: COMMENT: Immediately postop right trocar site, s/p evacuation and management (2) S/P right oophorectomy: (3) History of ovarian cystectomy: COMMENT: Left (4) Status post bilateral salpingectomy: PLAN: Plan pain management today and ambulation, dc home, discussed dc home today and startlovenox tonight. fuin 2 weeks 08/26/24 0807 Cosigner Signature (if applicable): CC: ~ Signed [facility] [id number] Consult note Author Carmelo Mart [facility] Note Date/Time August 26, 2024 1:33p m [facility] Medical Records Department [address] [place] [address] Anesthesia Postop Eval II 08/25/242029 MR#: [id number] Acct: [id number] Name: LM ALVARADO Rep #:[id number] : 1975 49 From: Carmelo Mart MD PCP: Care Physician,No Primary Status :[facility] Y Race: C Location: [place] [address] Anesthesia Postop Eval I Sum Postop Eval Completion status Anesthesia document: Postop Eval 1 completed: Yes Anesthesia Postop Eval I Summary Anesthesia Postop Eval I Summary: Anesthesia Postop Eval I: Assessment Summary 3 Airway patent Yes 08/25/24 20:29 Spontaneous unlabored Yes 08/25/24 20:29 respirations Mental status Calm,Asleep 08/25/24 20:29 nausea No 08/25/24 20:29 Vomiting No 08/25/24 20:29 Anesthesia Postop Eval I: Fluid Summary Crystalloid volume administer 350 08/25/24 20:29 (ml) Colloids volume administered ( ml) Blood Product volume administered (ml) Total IV fluid infused 350 08/25/24 20:29 Anesthesia Postop Eval I: Summary Notes Anesthesia Complication No 08/25/24 20:29 Anesthesia Complication Comment: Post-operative progress note Anesthesia: Postop Eval II Evaluation Mental status: Awake Pain Level: 1 nausea: No Vomiting: No 08/25/242029 <Electronically signed by Carmelo Mart MD > Date _ Carmelo Mart MD Cosigner Signature: Date CC: ~ Signed [facility] Work Phone: 1(268) 503-468005-20-2025 Consult note Author [facility] Note Date/Time August 25, 2024 8:29p [facility] Medical Records Department [address] [place] [address] Anesthesia Postop Eval I 08/25/242027 MR#: [id number] Acct: [id number] Name: LM ALVARADO Rep #:[id number] : 1975 49 From: Carmelo Mart MD PCP: Care Physician,No Primary Status :REG [facility] Y Race: C Location: [place] [address] Anesthesia: Postop Eval I Current Vital Signs Temperature: 97.7 F Pulse Rate: 100 Blood Pressure: 96/83 Respiratory Rate: 16 Pulse Ox: 95 Oxygen Delivery Method: Room Air Assessment Airway patent: Yes Spontaneous unlabored respirations: Yes Mental status: Calm and Asleep nausea: No Vomiting: No Anesthesia Complication: No Fluid Hydration Crystalloid volume administer (ml): 350 Total IV fluid infused: 350 Progress Note Anesthesia document: Postop Eval 1 completed: Yes 08/25/242028 <Electronically signed by Carmelo Mart MD > Date _ Carmelo Mart MD [facility] Signature: Date CC: ~ Signed [facility] Work Phone: 1([phone]) 788-534205-20-2025 Consult note Author [facility] Note Date/Time August 25, 2024 8:28p [facility] Medical Records Department [address] [place] [address] Pre-Anesthesia Evaluation 08/25/241819 MR#: [id number] Acct: [id number] Name: LM ALVARADO Rep #:[id number] : 1975 49 From: Carmelo Mart MD PCP: Care Physician,No Primary Status :REG [facility] Y Race: C Location: MS3 MS320 -1 ASA Classification* ASA Classification ASA Classification: 2 and E Assessment & Plan Anesthesia* Anesthesia Assessment Anesthesia Assessment: Discussed sedation and/or anesthesia options, risks, benefits, and alternatives with patient/parents/legal guardian/POA. Questions invited. The patient/parents/legal guardian/POA seems to understand and agrees to proceedwith anesthesia plan. Reviewed the physical assessment, medical history, allergy history and patient home medications list prior to surgery/procedure/anesthetic and documented any changes. Performed airway and anesthesia risk assessments. Anesthesia Type Anesthesia Type: General ( Patient back to operating room. Due to apparent hematoma and abdominal wall. Post oophorectomy.) Anesthesia Focused Assessment* Temperature: 97.7 F Pulse Rate: 89 Blood Pressure: 104/57 Respiratory Rate: 16 Pulse Ox: 97 Airway Assessment Mouth opens: >3 cm Mallampati Score: II Focused Labs Anesthesia Preop lab: CBC WBC 20.3 K/mm3 (4.4-11.0) H 08/25/24 17:20 5 RBC 4.21 M/mm3 (4.2-5.4) 08/25/24 17:20 08/25/24 Hgb 13.5 g/dL (12.0-15.0) 08/25/24 17:20 08/25/24 Hct 39.3 % (37-47) 08/25/24 17:20 08/25/24 Plt Count 255 K/mm3 (150-450) 08/25/24 17:20 08/25/24 CHEMISTRY Potassium 3.7 mmol/L (3.3-5.1) 07/08/24 18:50 07/08/24 Sodium 136 mmol/L (133-145) 07/08/24 18:50 07/08/24 BUN 13 mg/dL (4-19) 07/08/24 18:50 07/08/24 Creatinine 0.80 mg/dL (0.70-1.20) 07/08/24 18:50 07/08/24 Glucose 86 mg/dL (70-99) 07/08/24 18:50 07/08/24 COAG PT 14.8 SECONDS (11.7-14.9) 08/25/24 17:30 Pre-Assessment Diagnosis/Proposed Procedure Planned Operative Procedure(s): Exploratory laparotomy. Hematoma evacuation abdominal wall. 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 When Was Last Pacemaker Check QUESTION #4 FULL TEXT: You/Your Family Experience fever (hyperthermia) with Anesthesia Last Oral Intake Last Oral intake: Last Oral Intake NPO since 06:00 08/25/24 12:46 Meds taken in AM with sips of Yes 08/25/24 12:46 water? Meds patient instructed to take am of surgery PONV PONV - wild life photographer: PONV - wild life photographer Female Yes 08/19/24 10:23 HX of Motion Sickness Yes 08/19/24 10:23 HX of N/V After Surgery No 08/19/24 10:23 Non-Smoker No 08/19/24 10:23 Duration of Surgery greater No 08/19/24 10:23 than 60 minutes Number of Risk Factors 2 08/19/24 10:23 PONV Score Moderate Risk 08/19/24 10:23 Height & Weight Height & Weight: Anesthesia: Height & Weight Height 5 ft 4 in 08/25/24 12:46 Weight: 53.977 kg 08/25/24 12:46 Body Mass Index (BMI) 20.4 08/25/24 12:46 Respiratory Assessment Respiratory Assessment - wild life photographer: Respiratory Tract Infection Hx - wild life photographer Hx Respiratory Tract Infection No 08/19/24 10:23 STOP Sleep Apnea STOP Sleep Apnea - wild life photographer: STOP Sleep Apnea - wild life photographer Hx Hypertension No: hypotension 08/19/24 10:23 Hx Sleep Apnea No 08/25/24 16:00 CPAP BIPAP Do you snore loudly (louder No 08/19/24 10:23 than talking or can be heard Do you often feel tired/ No 08/19/24 10:23 fatigued/ sleepy during daytime? Has anyone observed you stop No 08/19/24 10:23 breathing during sleep? STOP Results Negative 08/25/24 20:20 QUESTION #5 FULL TEXT : Do you snore loudly (louder than talking or can be heard through closed doors)? 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 Specify any problems Hx of Preganancy in last 3 N/A 08/19/24 10:23 Months Nurse Filling Out Transfusion NBUCHER 08/19/24 10:23 & Questions: Date: 08/19/24 08/19/24 10:23 Time: 10:25 08/19/24 10:23 Patient unable to answer at this time (ie. confused, unrespo /Reproduction History /Reproductive History - wild life photographer: /Reproductive Hx- wild life photographer Hx Now No 08/19/24 10:23 Gestational Age (in weeks): EDC: Hx Hx Para Hx Section SAB No 08/19/24 10:23 Active Medications Active Medications: Current Medications Generic Name Dose Route Start Last Admin Trade Name Freq PRN Reason Stop Dose Admin Hydrocodone Bitart/Acetaminophen 1 - 2 tablet 08/25/24 15:21 Hydrocodone Bitartrate/Apap 5/325 Tablet PO Q6H PRN PRN Pain Score 1-5 Lactated Ringer's 1,000 mls @ 15 mls/hr 08/25/24 12:30 08/25/24 12:30 IV 15 mls/hr .Q48H KRISTEN Administration Ondansetron HCl 4 mg 08/25/24 15:21 Ondansetron 4 Mg/2 Ml Vial IM X1 PRN NAUSEA PFSH Medical History Wears glasses MRSA infection Bipolar disorder Marijuana use Arthritis Bladder disease Pulmonary embolism Migraine headache Loose, teeth Smoker Interstitial cystitis Irritable bowel syndrome History of pulmonary embolism Anxiety Home Medications ?Medication ?Instructions ?Recorded ?Last Taken ?Type aripiprazole 20 mg tablet 20 mg PO DAILY 06/04/24 05/ 06:00 History clonazepam 0.5 mg tablet 0.5 mg PO QHS PRN anxiety 08/25/24 06:00 History cyclobenzaprine 10 mg tablet 10 mg PO TID PRN muscle s pasm #30 07/15/24 08/09/24 Rx tabs hydrocodone-acetaminophen 5-325mg 1 tab PO Q6H PRN PRN Pain 5 days 08/09/24 Unknown Rx 5mg-325mg #14 TABLETS enoxaparin 40 mg/0.4 mL 40 mg (0.4 mL) SQ DAILY 14 d ays 08/25/24 Unknown Rx subcutaneous syringe (Lovenox) #20 mL naproxen 500 mg tablet 500 mg PO BID PRN PRN Pain # 30 tabs 08/25/24 Unknown Rx Allergy/AdvReac Type Severity Reaction Status Date / Time metronidazole (From Flagyl) Allergy Severe Anaphylaxis Verified 08/25/24 12:35 Family History Grandmother Ovarian cancer, Onset Age: 69 Aunt Breast cancer, Onset Age: 45 Surgical History Status post bilateral salpingectomy History of ovarian cystectomy S/P right oophorectomy History of endometrial ablation Hx of tubal ligation History of back surgery H/O: hysterectomy Social History household members: spouse housing: house number of children: 3 current occupational status: employed current occupation: [employer] Smoking Status: Current every day smoker tobacco type: cigarettes and e- cigarettes do you feel safe at home: Yes additional social history: Boyfriend - Terence Review of Systems (Anesthesia) ROS Narrative System reviewed and no additional complaints, except as documented. 08/25/242027 <Electronically signed by Carmelo Mart MD > Date _ Carmelo Mart MD Cosigner Signature: Date CC: ~ Signed [facility] Work Phone: 1(556) 966-877905-20-2025 Procedure note [facility] Medical Records Department [address] [place] [address] Operative Report 08/25/242036 MR#: [id number] Acct: [id number] Name: LM ALVARADO Rep #:[id number] : 1975 49 From: Treasure madsen MD PCP: Care Physician,No Primary Status :[facility] Location: [place] [address] Problems Associated Problem List Diagnoses (1) Abdominal wall hematoma: Procedures Urinary/Genital 52xxx-59xxx: Other Procedure See Report (attention plant health care technician patient taken back to OR same day and incisional exploration unsure what code to use) Operative Report (Standard) Operative Information Date of Procedure: 08/25/24 Pre-Operative Diagnosis: abdominal wall hematoma Post-Operative Diagnosis: same Surgery/Procedure Performed: incisional abdominal wall exploration of abdominal wall hematoma head trimmer: Yes Fabric Machine Operator: Jak Casas Tasks completed by phlebotomy lab assistant: Opening & closing, Altering tissue, Hemostasis:Clamp, Hemostasis: Tie, Hemostasis: Electrocautery and Retracting Type of Anesthesia: General RN Documented Start/Stop Times: Operation Date: 08/25/24 18:15 Case Time Anesthesia Start 08/25/24 18:44 Into Room 08/25/24 18:44 Procedure Start 08/25/24 19:01 Procedure End 08/25/24 20:07 Anesthesia End 08/25/24 20:16 Out of Room 08/25/24 20:16 Into Recovery 08/25/24 20:20 Procedure Start Time: 19:01 Procedure Stop Time: 20:07 Select all DRAINS/GRAFTS/IMPLANTS that apply: None Estimated Blood Loss: 500 Specimen collected: No Description of surgery: Patient was taken to the operating room after having had laparoscopy earlier today and being found to have an expanding right abdominal wall hematoma where the right trocar was seen. General surgery was consulted and they agreed to take the patient back and agreed to assist in the procedure. Patient was prepped and draped in the normal sterile fashion in the dorsal supine position. Ancef given preoperatively. The right trocar incision was opened and extended to a full 5 cm incision. Hematoma was evacuated approximately 300cc of clot andactive bleeding noted both just underneath the skin and the muscle appeared oozy. Exploration performed in the abdominal wall under the anterior rectus sheath throughout the rectus muscle it was all appearing to be above the posterior rectus sheath no abdominal involvement. No major vessel injury was suspected. [id number] suture of silk tie was placed in the muscle for hemostasis. The Bovie was used to cauterize several areas of raw appearing oozing and a vessel near the skin. Then fibrillar was placed and Floseal over top. Hemostasis was noted. Anterior rectus sheath closed with 0 Vicryl and skin closed with 4-0 Monocryl. Steri-Strips applied.Patient was awoken and taken recovery in stable condition. Surgical Findings: abdominal wall hematoma, rectus muscle bleeding Complications Complications: No 08/25/242046 Cosigner Signature (if applicable): CC: Dr. Treasure Cardoso MD; No Primary Care Physician~ Signed [facility]05-20-2025 Consult note [facility] Medical Records Department [address] [place] [address] Anesthesia Postop Eval I 08/25/242027 MR#: [id number] Acct: [id number] Name: LM ALVARADO Rep #:[id number] : 1975 49 From: Carmelo Mart MD PCP: Care Physician,No Primary Status :REG SDC Y Race: C Location: [place] [address] Anesthesia: Postop Eval I Current Vital Signs Temperature: 97.7 F Pulse Rate: 100 Blood Pressure: 96/83 Respiratory Rate: 16 Pulse Ox: 95 Oxygen Delivery Method: Room Air Assessment Airway patent: Yes Spontaneous unlabored respirations: Yes Mental status: Calm and Asleep nausea: No Vomiting: No Anesthesia Complication: No Fluid Hydration Crystalloid volume administer (ml): 350 Total IV fluid infused: 350 Progress Note Anesthesia document: Postop Eval 1 completed: Yes 08/25/242028 > Date _ Carmelo Mart MD Cosigner Signature: Date CC: ~ Signed [facility]05-20-2025 Consult note [facility] Medical Records Department [address] [place] [id number] Pre-Anesthesia Evaluation 08/25/24 1820 MR#: [id number] Acct: [id number] Name: LM ALVARADO Rep #:[id number] : 1975 49 From: Carmelo Mart MD PCP: Care Physician,No Primary Status :[facility] Y Race: C Location: [place] [address] ASA Classification* ASA Classification ASA Classification: 2 and E Assessment & Plan Anesthesia* Anesthesia Assessment Anesthesia Assessment: Discussed sedation and/or anesthesia options, risks, benefits, and alternatives with patient/parents/legal guardian/POA. Questions invited. The patient/parents/legal guardian/POA seems to understand and agrees to proceedwith anesthesia plan. Reviewed the physical assessment, medical history, allergy history and patient home medications list prior to surgery/procedure/anesthetic and documented any changes. Performed airway and anesthesia risk assessments. Anesthesia Type Anesthesia Type: General ( Patient back to operating room. Due to apparent hematoma and abdominal wall. Post oophorectomy.) Anesthesia Focused Assessment* Temperature: 97.7 F Pulse Rate: 89 Blood Pressure: 104/57 Respiratory Rate: 16 Pulse Ox: 97 Airway Assessment Mouth opens: >3 cm Mallampati Score: II Focused Labs Anesthesia Preop lab: CBC WBC 20.3 K/mm3 (4.4-11.0) H 08/25/24 17:20 5 RBC 4.21 M/mm3 (4.2-5.4) 08/25/24 17:20 08/25/24 Hgb 13.5 g/dL (12.0-15.0) 08/25/24 17:20 08/25/24 Hct 39.3 % (37-47) 08/25/24 17:20 08/25/24 Plt Count 255 K/mm3 (150-450) 08/25/24 17:20 08/25/24 CHEMISTRY Potassium 3.7 mmol/L (3.3-5.1) 07/08/24 18:50 07/08/24 Sodium 136 mmol/L (133-145) 07/08/24 18:50 07/08/24 BUN 13 mg/dL (4-19) 07/08/24 18:50 07/08/24 Creatinine 0.80 mg/dL (0.70-1.20) 07/08/24 18:50 07/08/24 Glucose 86 mg/dL (70-99) 07/08/24 18:50 07/08/24 COAG PT 14.8 SECONDS (11.7-14.9) 08/25/24 17:30 Pre-Assessment Diagnosis/Proposed Procedure Planned Operative Procedure(s): Exploratory laparotomy. Hematoma evacuation abdominal wall. 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 When Was Last Pacemaker Check QUESTION #4 FULL TEXT: You/Your Family Experience fever (hyperthermia) with Anesthesia Last Oral Intake Last Oral intake: Last Oral Intake NPO since 06:00 08/25/24 12:46 Meds taken in AM with sips of Yes 08/25/24 12:46 water? Meds patient instructed to take am of surgery PONV PONV - wild life photographer: PONV - wild life photographer Female Yes 08/19/24 10:23 HX of Motion Sickness Yes 08/19/24 10:23 HX of N/V After Surgery No 08/19/24 10:23 Non-Smoker No 08/19/24 10:23 Duration of Surgery greater No 08/19/24 10:23 than 60 minutes Number of Risk Factors 2 08/19/24 10:23 PONV Score Moderate Risk 08/19/24 10:23 Height & Weight Height & Weight: Anesthesia: Height & Weight Height 5 ft 4 in 08/25/24 12:46 Weight: 53.977 kg 08/25/24 12:46 Body Mass Index (BMI) 20.4 08/25/24 12:46 Respiratory Assessment Respiratory Assessment - wild life photographer: Respiratory Tract Infection Hx - wild life photographer Hx Respiratory Tract Infection No 08/19/24 10:23 STOP Sleep Apnea STOP Sleep Apnea - wild life photographer: STOP Sleep Apnea - wild life photographer Hx Hypertension No: hypotension 08/19/24 10:23 Hx Sleep Apnea No 08/25/24 16:00 CPAP BIPAP Do you snore loudly (louder No 08/19/24 10:23 than talking or can be heard Do you often feel tired/ No 08/19/24 10:23 fatigued/ sleepy during daytime? Has anyone observed you stop No 08/19/24 10:23 breathing during sleep? STOP Results Negative 08/25/24 20:20 QUESTION #5 FULL TEXT : Do you snore loudly (louder than talking or can be heard through closeddoors)? 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 Specify any problems Hx of Preganancy in last 3 N/A 08/19/24 10:23 Months Nurse Filling Out Transfusion NBUCHER 08/19/24 10:23 & Questions: Date: 08/19/24 08/19/24 10:23 Time: 10:08/19/24 10:23 Patient unable to answer at this time (ie. confused, unrespo /Reproduction History /Reproductive History - wild life photographer: /Reproductive Hx- wild life photographer Hx Now No 08/19/24 10:23 Gestational Age (in weeks): EDC: Hx Hx Para Hx Section SAB No 08/19/24 10:23 Active Medications Active Medications: Current Medications Generic Name Dose Route Start Last Admin Trade Name Freq PRN Reason Stop Dose Admin Hydrocodone Bitart/Acetaminophen 1 - 2 tablet 08/25/24 15:21 Hydrocodone Bitartrate/Apap 5/325 Tablet PO Q6H PRN PRN Pain Score 1-5 Lactated Ringer's 1,000 mls @ 15 mls/hr 08/25/24 12:30 08/25/24 12:30 IV 15 mls/hr .Q48H KRISTEN Administration Ondansetron HCl 4 mg 08/25/24 15:21 Ondansetron 4 Mg/2 Ml Vial IM X1 PRN NAUSEA PFSH Medical History Wears glasses MRSA infection Bipolar disorder Marijuana use Arthritis Bladder disease Pulmonary embolism Migraine headache Loose, teeth Smoker Interstitial cystitis Irritable bowel syndrome History of pulmonary embolism Anxiety Home Medications ?Medication ?Instructions ?Recorded ?Last Taken ?Type aripiprazole 20 mg tablet 20 mg PO DAILY 06/04/24 05/2 06:00 History clonazepam 0.5 mg tablet 0.5 mg PO QHS PRN anxiety 08/25/24 06:00 History cyclobenzaprine 10 mg tablet 10 mg PO TID PRN muscle s pasm #30 07/15/24 08/09/24 Rx tabs hydrocodone-acetaminophen 5-325mg 1 tab PO Q6H PRN PRN Pain 5 days 08/09/24 Unknown Rx 5mg-325mg #14 TABLETS enoxaparin 40 mg/0.4 mL 40 mg (0.4 mL) SQ DAILY 14 d ays 08/25/24 Unknown Rx subcutaneous syringe (Lovenox) #20 mL naproxen 500 mg tablet 500 mg PO BID PRN PRN Pain # 30 tabs 08/25/24 Unknown Rx Allergy/AdvReac Type Severity Reaction Status Date / Time metronidazole (From Flagyl) Allergy Severe Anaphylaxis Verified 08/25/24 12:35 Family History Grandmother Ovarian cancer, Onset Age: 69 Aunt Breast cancer, Onset Age: 45 Surgical History Status post bilateral salpingectomy History of ovarian cystectomy S/P right oophorectomy History of endometrial ablation Hx of tubal ligation History of back surgery H/O: hysterectomy Social History household members: spouse housing: house number of children: 3 current occupational status: employed current occupation: [employer] Smoking Status: Current every day smoker tobacco type: cigarettes and e-cigarettes do you feel safe at home: Yes additional social history: Boyfriend - Terence Review of Systems (Anesthesia) ROS Narrative System reviewed and no additional complaints, except as documented. 08/25/242027 > Date _ Carmelo Mart MD Cosigner Signature: Date CC: ~ Signed [facility]05-20-2025 Progress note Author Treasure Cardoso [facility] Note Date/Time August 25, 2024 6:02p [facility] Medical Records Department [address] [place] [address] Progress Note - OBGYN 08/25/24 1758 MR#: [id number] Acct: [id number] Name: LM ALVARADO Rep #:[id number] : 1975 49 From: Treasure madsen MD PCP: Care Physician,No Primary Status :REG [facility] Location: MS3 HV917-0 Subjective Subjective Patient evaluated for increased right lower abdominal pain and increasing swelling in the right abdominal wall. Vital signs stable. Area had a small lump initially postop and now has a 8 x 6 cm area going into the groin abdominalwall hematoma where the right trocar is located. Objective Data Objective Data Vital Signs: Vital Signs Temp Pulse Resp BP Pulse Ox O2 Del Method 99.1 F 82 16 121/64 H 96 Room Air 08/25/24 16:00 08/25/24 17:45 08/25/24 17:45 08/25/24 17:45 08/25/24 17:45 08/25/24 17:45 Oxygen Delivery Method Room Air Weight: 119 lb Body Mass Index (BMI) 20.4 Intake & Output: Intake and Output for Last 24 Hours 08/23/24 08/24/24 08/25/24 23:59 23:59 23:59 Output Total 50 / 50 Balance -50 / -50 Lab / Micro Data 08/25/24 17:20 Labs: Laboratory Results - last 24 hr 08/25/24 17:20: WBC 20.3 H, RBC 4.21, Hgb 13.5, Hct 39.3, MCV 93.3, MCH 32.1 H, MCHC 34.4, RDW Std Deviation 44.2 H, RDW Coeff of Angel 13.0, Plt Count 255, MPV 9.5 Physical Exam GI GI Narrative: 8 x 6 cm abdominal wall hematoma by right trocar site. Tender and uncomfortable. 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 Patient counseled regarding options of bilateral ovarian removal versus right ovary removal due to pelvic pain being primarily onthe right side. Discussed the risk of premature menopause the patient wishes toretain ovarian function if possible. Plan right oophorectomy and left ovarian cystectomy if there is left ovarian pathology present. (2) Hemorrhagic cyst of ovary: COMMENT: right side and then left. possible that the repeat US shows the same side having a cyst. (3) Abdominal wall hematoma: COMMENT: Immediately postop right trocar site (4) S/P right oophorectomy: (5) History of ovarian cystectomy: COMMENT: Left (6) Status post bilateral salpingectomy: PLAN: Plan Called and reviewed case with general surgery, recommend taking back to the operating room for surgical evaluation for evacuation and ligation of vessel. Stat hemoglobin 13.5 08/25/24 1802 <Electronically signed by Treasure Cardoso MD> Cosigner Signature (if applicable): CC: ~ Signed [facility] Work Phone: 1(280) 399-505505-20-2025 Consult note Author Carmelo Mart [facility] Note Date/Time August 26, 2024 1:33p m [facility] Medical Records Department [address] [place] [address] Anesthesia Postop Eval II 08/25/24 1650 MR#: [id number] Acct: [id number] Name: LM ALVARADO Rep #:[id number] : 1975 49 From: Carmelo Mart MD PCP: Care Physician,No Primary Status :REG [facility] Y Race: C Location: [place] [address] Anesthesia Postop Eval I Sum Postop Eval Completion status Anesthesia document: Postop Eval 1 completed: Yes Anesthesia Postop Eval I Summary Anesthesia Postop Eval I Summary: Anesthesia Postop Eval I: Assessment Summary Airway patent Yes 08/25/24 15:41 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 Spontaneous unlabored Yes 08/25/24 15:41 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 respirations Mental status Awake,Calm 08/25/24 15:41 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 nausea No 08/25/24 15:41 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 Vomiting No 08/25/24 15:41 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 Anesthesia Postop Eval I: Fluid Summary Crystalloid volume administer 1,000 08/25/24 15:41 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 (ml) Colloids volume administered ( ml) Blood Product volume administered (ml) Total IV fluid infused 1,000 08/25/24 15:41 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 Anesthesia Postop Eval I: Summary Notes Anesthesia Complication No 08/25/24 15:41 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 Anesthesia Complication Comment: Post-operative progress note Anesthesia: Postop Eval II Evaluation Mental status: Awake Pain Level: 0 nausea: No Vomiting: No 08/25/24 1650 <Electronically signed by Carmelo Mart MD > Date _ Carmelo Mart MD Cosigner Signature: Date CC: ~ Signed [facility] Work Phone: 1(787) 110-784905-20-2025 Discharge summary Author Treasure Cardoso [facility] Note Date/Time August 25, 2024 4:31p m [facility] Medical Records Department [address] [place] [address] Instructions for Home/Discharge Instructions 08/25/24 0747 MR#: [id number] Acct: [id number] Name: LM ALVARADO Rep #:[id number] : 1975 49 From: Treasure madsen MD PCP: Care Physician,No Primary Status :REG SDC Discharge Instructions DC O2, CPAP, BIPAP needs Home O2 Discharge instructions: No Follow Up Care Test Results: Test results from this visit will be discussed in further detail at your follow- up appointment, if applicable. Discharge Plan Admission Attending Provider: Treasure Cardoso Primary Care Provider: Care Physician,No Primary Instructions Print Language: Dutch Discharge Orders/Prescriptions Prescriptions: New naproxen 500 mg tablet 500 mg PO BID PRN PRN (Reason: Pain) Qty: 30 1RF enoxaparin [Lovenox] 40 mg/0.4 mL syringe 40 mg SQ DAILY 14 Days Qty: 20 1RF No Action cyclobenzaprine 10 mg tablet 10 mg PO TID PRN (Reason: muscle spasm) Qty: 30 2RF clonazepam 0.5 mg tablet 0.5 mg PO QHS PRN (Reason: anxiety) Patient Comments: PT TAKES AT BEDTIME AND ROUTINELY aripiprazole 20 mg tablet 20 mg PO DAILY hydrocodone-acetaminophen 5-325 mg tablet 1 tab PO Q6H PRN PRN (Reason: Pain) 5 Days Qty: 14 0RF Other Ambulatory Orders: 12 Lead EKG (Routine) Location: None Selected Ordered By: Dr. Ayad Jones Referrals / Follow Up: Care Physician,No Primary [Primary Care Provider] - Disposition Disposition (needs filled in before D/C Order can be placed): Home, Self Care 08/25/24 1631<Electronically signed by Treasure Cardoso MD>Treasure Cardoso MD CC: No Primary Care Physician ~ Signed [facility] Work Phone: 1(780) 143-849205-20-2025 Progress note [facility] Medical Records Department [address] [place] [address] Progress Note - OBGYN 08/25/24 1758 MR#: [id number] Acct: [id number] Name: LM ALVARADO Rep #:[id number] : 1975 49 From: Treasure madsen MD PCP: Care Physician,No Primary Status :REG [facility] Location: [place]3 [id number] Subjective Subjective Patient evaluated for increased right lower abdominal pain and increasing swelling in the right abdominal wall. Vital signs stable. Area had a small lump initially postop and now has a 8 x 6 cm area going into the groin abdominalwall hematoma where the right trocar is located. Objective Data Objective Data Vital Signs: Vital Signs Temp Pulse Resp BP Pulse Ox O2 Del Method 99.1 F 82 16 121/64 H 96 Room Air 08/25/24 16:00 08/25/24 17:45 08/25/24 17:45 08/25/24 17:45 08/25/24 17:45 08/25/24 17:45 Oxygen Delivery Method Room Air Weight: 119 lb Body Mass Index (BMI) 20.4 Intake & Output: Intake and Output for Last 24 Hours 08/23/24 08/24/24 08/25/24 23:59 23:59 23:59 Output Total 50 / 50 Balance -50 / -50 Lab / Micro Data 08/25/24 17:20 Labs: Laboratory Results - last 24 hr 08/25/24 17:20: WBC 20.3 H, RBC 4.21, Hgb 13.5, Hct 39.3, MCV 93.3, MCH 32.1 H, MCHC 34.4, RDW Std Deviation 44.2 H, RDW Coeff of Angel 13.0, Plt Count 255, MPV 9.5 Physical Exam GI GI Narrative: 8 x 6 cm abdominal wall hematoma by right trocar site. Tender and uncomfortable. 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 Patientcounseled regarding options of bilateral ovarian removal versus right ovary removal due to pelvic pain being primarily onthe right side. Discussed the risk of premature menopause the patient wishes toretain ovarian function if possible. Plan right oophorectomy and left ovarian cystectomy if there is left ovarian pathology present. (2) Hemorrhagic cyst of ovary: COMMENT: right side and then left. possible that the repeat US shows the same side having a cyst. (3) Abdominal wall hematoma: COMMENT: Immediately postop right trocar site (4) S/P right oophorectomy: (5) History of ovarian cystectomy: COMMENT: Left (6) Status post bilateral salpingectomy: PLAN: Plan Called and reviewed case with general surgery, recommend taking back to the operating room for surgical evaluation for evacuation and ligation of vessel. Stat hemoglobin 13.5 08/25/24 1802 Cosigner Signature (if applicable): CC: ~ Signed [facility]05-20-2025 Consult note Author Bisi Sanford [facility] Note Date/Time August 26, 2024 1:33p [facility] Medical Records Department [address] [place] [address] Anesthesia Postop Eval I 08/25/24 1541 MR#: [id number] Acct: [id number] Name: CHRISTIANOVICTORIANOAtilio Rep #:[id number] : 1975 49 From: Bisi Sanford PCP: Care Physician,No Primary Status :REG SDC Y Race: C Location: [address] Anesthesia: Postop Eval I Current Vital Signs Temperature: 97.4 F Pulse Rate: 64 Blood Pressure: 120/72 Respiratory Rate: 16 Pulse Ox: 98 Oxygen Delivery Method: Room Air Assessment Airway patent: Yes Spontaneous unlabored respirations: Yes Mental status: Awake and Calm nausea: No Vomiting: No Anesthesia Complication: No Fluid Hydration Crystalloid volume administer (ml): 1,000 Total IV fluid infused: 1,000 Progress Note Anesthesia document: Postop Eval 1 completed: Yes 08/25/24 1541 <Electronically signed by Bisi Sanford > Date _ Bisi Hunterigner Signature: Date CC: ~ Signed [facility] Work Phone: 1(981) 379-972105-20-2025 Discharge summary [facility] Medical Records Department [address] [place] [address] Instructions for Home/Discharge Instructions 08/25/24 0747 MR#: [id number] Acct: [id number] Name: LM ALVARADO Rep #:[id number] : 1975 49 From: Treasure madsen MD PCP: Care Physician,No Primary Status :REG SDC Discharge Instructions DC O2, CPAP, BIPAP needs Home O2 Discharge instructions: No Follow Up Care Test Results: Test results from this visit will be discussed in further detail at your follow- up appointment, if applicable. Discharge Plan Admission Attending Provider: Treasure Cardoso Primary Care Provider: Care Physician,No Primary Instructions Print Language: Dutch Discharge Orders/Prescriptions Prescriptions: New naproxen 500 mg tablet 500 mg PO BID PRN PRN (Reason: Pain) Qty: 30 1RF enoxaparin [Lovenox] 40 mg/0.4 mL syringe 40 mg SQ DAILY 14 Days Qty: 20 1RF No Action cyclobenzaprine 10 mg tablet 10 mg PO TID PRN (Reason: muscle spasm) Qty: 30 2RF clonazepam 0.5 mg tablet 0.5 mg PO QHS PRN (Reason: anxiety) Patient Comments: PT TAKES AT BEDTIME AND ROUTINELY aripiprazole 20 mg tablet 20 mg PO DAILY hydrocodone-acetaminophen 5-325 mg tablet 1 tab PO Q6H PRN PRN (Reason: Pain) 5 Days Qty: 14 0RF Other Ambulatory Orders: 12 Lead EKG (Routine) Location: None Selected Ordered By: Dr. Ayad Jones Referrals / Follow Up: Care Physician,No Primary [Primary Care Provider] - Disposition Disposition (needs filled in before D/C Order can be placed): Home, Self Care 08/25/24 1631Scee Cardoso MD CC: No Primary Care Physician ~ Signed [facility]05-20-2025 History and physical note Author Treasure Cardoso [facility] Note Date/Time August 25, 2024 2:18p m [facility] Medical Records Department [address] [place] [address] History & Physical Exam 08/25/24 0747 MR#: [id number] Acct: [id number] Name: LM ALVARADO Rep #:[id number] : 1975 49 From: Treasure madsen MD PCP: Care Physician,No Primary Status :REG [facility] Location: [place] [address] History and Physical Date of Admission: 08/25/24 Intake Vital Signs 08/14/2507:22 08/18/2509:02 08/18/2509:02 Height 5 ft 4 in 5 ft 4 in 5 ft 4 in Weight: 119 lb BMI 20.4 BP 111/73 Intake Visit Reasons: Laparoscopic Oophorectomy Inspector Crystal Required: No Is patient in pain?: Yes (pelvic pain) Pain scale (1-10): 6 Allergies metronidazole (From Flagyl) Allergy (Severe, Verified 08/19/24 10:21) Anaphylaxis Medications ?Medication ?Instructions ?Recorded ?Confirmed ?Type aripiprazole 20 mg tablet 20 mg PO DAILY 06/04/24 08/19/24 History clonazepam 0.5 mg tablet 0.5 mg PO QHS PRN anxiety 06/04/2408/19 History cyclobenzaprine 10 mg tablet 10 mg PO TID PRN muscle spasm #30 08/19/24 Rx tabs hydrocodone-acetaminophen 5-325mg 1 tab PO Q6H PRN PRN Pain 5 days 5 08/19/24 Rx 5mg-325mg #14 TABLETS Is last menstrual period known: No Patient : No : No [facility] Medical History (Updated 08/21/24 @ 16:[address] Treasure Cardoso MD) Wears glasses MRSA infection Bipolar disorder Marijuana use Arthritis Bladder disease Pulmonary embolism Migraine headache Loose, teeth Smoker Interstitial cystitis Irritable bowel syndrome History of pulmonary embolism Anxiety Surgical History (Updated 08/19/24 @ 10:37 by Cinthia Monterroso) History of endometrial ablation Hx of tubal ligation History of back surgery H/O: hysterectomy Family History Grandmother Ovarian cancer, Onset Age: 69Aunt Breast cancer, Onset Age: 45 Social History household members: spouse housing: house number of children: 3 current occupational status: employed current occupation: [employer] Smoking Status: Current every day smoker tobacco type: cigarettes and e- cigarettes do you feel safe at home: Yes additional social history: Boyfriend - Terence HPI Laparoscopic Oophorectomy Details: LM ALVARADO is a 49 year old who presents for follow-up and preoperative visit. Patient has had continued intermittent pelvic pain worse on the right side that she has been to the ER multiple times for now. It is interfering withquality of life and daily life and limiting her ability to work. She is living in a [facility] at present. She states she wants to proceed with surgical management she is not a candidate for hormonal suppression due to her history ofa PE. She understands the risks of premature menopause and wants to proceed with some ovarian preservation if possible. Female Reproductive History Menopausal Symptoms: No night sweats History 6 Elective abortions 2 Hx Para 3 Spontaneous abortions 1 Hx # Term Pregnancies Ectopic pregnancies Hx # Pregnancies Multiple births # of living children 3 Past Pregnancies Del. Date Name GA/Weeks Outcome Route Bth Weight Infant Gen Labor Lgth Anesthesia Del Locatn Provider FOB Unknown 1994 Vinod live - full term Unknown 1996 Araceli live - Unknown 2002 Marely live - ROS Const Constitutional: Denies fatigue, night sweats, weight gain or weight loss ENT ENT: Reports system reviewed and no additional complaints, except as documented Cardio Card: Denies chest pain Resp Resp: Denies cough or dyspnea GI GI: Reports as per HPI and abdominal pain; Denies constipation, nausea or vomiting : Denies nipple discharge, urinary frequency, urinary incontinence, urinary hesitancy, urinary urgency, vaginal discharge, vaginal dryness, vaginal odor or vaginal pruritus Musc Musc: Denies arthralgias, back pain or muscle weakness Skin Skin/Breast: Denies alopecia, change in hair, dry skin, breast mass, breast pain, breast skin changes or nipple discharge Neuro Neuro: Reports system reviewed and no additional complaints, except as documented Psych Psych: Reports system reviewed and no additional complaints, except as documented Endo Endo: Reports cold intolerance; Denies excessive sweating, heat intolerance or polydipsia Roger/Lymph Hematologic/Lymphatic: Denies easy bleeding, Denies easy bruising and Denies lymphadenopathy Exam Const General: cooperative, healthy appearing, comfortable and no acute distress Orientation: alert [facility] Head: normal to inspection and normocephalic Ears: hearing grossly normal bilaterally and external ears normal Nose: external nose normal and nares normal Face and sinus: normal facial exam Neck Neck: normal visual inspection and no lymphadenopathy Thyroid: thyroid normal Chest Chest palpation & inspection: normal inspection of the chest Resp Effort & Inspection: normal respiratory effort Auscultation: clear to auscultation bilaterally Cardio Rate: regular rate Rhythm: regular rhythm Heart Sounds: S1 normal and S2 normal GI Inspection: normal to inspection and non-distended Palpation: soft and no hepatosplenomegaly Other: Tender in the right lower abdomen no rebound no masses palpated Musc Other: gross motor intact no deficits, full bilateral strength Skin General: no rashes or lesions noted Neuro General: patient alert, patient awake, moves all extremities and no focal motor deficits Motor: muscle tone normal throughout Extrem General: normal to inspection and no pedal edema Psych Appearance: grossly normal Mental Status: mental status grossly normal Affect: normal affect Speech and Movement: speech and movement normal Coding Level of Care Code No Charge Diagnoses Giselle N94.0 Pelvic pain R10.2 Hemorrhagic cyst of ovary N83.209 Assessment and Plan Assessment and Plan (1) Mittelschmerz: Status: Acute (2) Pelvic pain: Status: Acute Comment: Likely secondary to 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 Patient counseled regarding options of bilateral ovarian removal versus right ovary removal due to pelvic pain being primarily on the right side. Discussed the risk of premature menopause the patient wishes to retain ovarian function if possible. Plan right oophorectomy and left ovarian cystectomy if there is left ovarian pathology present. (3) Hemorrhagic cyst of ovary: Status: Acute Comment: right side and then left. possible that the repeat US shows the same side havinga cyst. Plan Problem list updated and treatment plans were reviewed with the patient and relevant educational handouts given. See problem list details for specific planinformation. After discussing the patient's diagnosis and treatment plan options, patient wishes to proceed with surgical management. I have discussed with the patient the risks, benefits, and alternatives of the procedure which include but are notlimited to risks of anesthesia, bleeding, infection, possible damage to bowel, bladder, or surrounding vasculature which could lead to additional surgery to evaluate any complications. Patient agrees to procedure and wishes to proceed. ACOG/uptodate references given for additional information regarding procedure. plan 2 weeks lovenox postop 08/25/24 0747 <Electronically signed by Treasure Cardoso MD> Cosigner Signature (if applicable): CC: Dr. Treasure Cardoso MD; No Primary Care Physician~ Signed ADDENDUM by Dr. Treasure Cardoso MD on 08/25/24 at 1418 Addendum UPDATE- I have seen the patient and performed any clinically relevant updates to the history and physical exam. Treasure Cardoso MD 08/25/24 1418<Electronically signed by Treasure Cardoso MD> Cosigner Signature (if applicable): cc: Dr. Treasure Cardoso MD; No Primary Care Physician ~* Signed [facility] Work Phone: 1(807) 427-971805-20-2025 Procedure note [facility] Medical Records Department [address] [place] [address] Operative Report 08/25/24 1515 MR#: [id number] Acct: [id number] Name: LM ALVARADO Rep #:[id number] : 1975 49 From: Treasure madsen MD PCP: Care Physician,No Primary Status :[facility] Location: [place] [address] Problems Associated Problem List Diagnoses (1) Pelvic pain: (2) Hemorrhagic cyst of ovary: (3) Mittelschmerz: Operative Report (Standard) Operative Information Date of Procedure: 08/25/24 Pre-Operative Diagnosis: see above Post-Operative Diagnosis: same Surgery/Procedure Performed: laparoscopic right salpingoophorectomy left salpingectomy ovarian cystectomy head trimmer: Yes Fabric Machine Operator: Juan Mendenhall Tasks completed by phlebotomy lab assistant: Opening, Closing, Insert Trochanter and Retracting Type of Anesthesia: General RN Documented Start/Stop Times: Operation Date: 08/25/24 13:55 Case Time Into Pre-Op 08/25/24 12:24 Out of Pre-Op 08/25/24 14:09 Anesthesia Start 08/25/24 14:15 Into Room 08/25/24 14:15 Procedure Start 08/25/24 14:34 Procedure Start Time: 14:15 Procedure Stop Time: 15:21 Select all DRAINS/GRAFTS/IMPLANTS that apply: Drains Drain details: lott Estimated Blood Loss: 50 Specimen collected: Yes Description of specimen(s) removed: tubes ovary ovarian cyst wall Description of surgery: Patient was taken to the operating room and was prepped and draped in normal sterile fashion after being placed under general anesthesia. She was in the dorsolithotomy position and bladder was drained of clear urine a sponge stick placed in the vagina. Umbilicus was injected with lidocaine and a 5 mm incisionwas made at the umbilicus and Veress needle entered into the abdomen confirmed to be intra-abdominal with an opening pressure of 2 mmHg pressure. Abdomen was insufflated with CO2 gas to allow passage of a 5 mm Optiview trocar. Right and left lower quadrant Optiview trocars were placed under direct visualization also. Pelvis was well-visualized and the right ovary was noted to be nodularbut not cystic in appearance and the tube was still present the left ovary was noted to be cystic and enlarged with a tube that was multicystic and abnormal inappearance also in noted to be present. A left ovarian cystectomy was performedthe cyst wall removed the left tube removed the right oophorectomy and tube alsoremoved using the LigaSure device without complication. No other abnormalities were seen within the pelvis. All instruments were removed after the specimens were removed through theumbilicus through a 5 bag and the fascia was closed in the umbilicus with an 0 Vicryl. Abdomen was desufflated of gas patient was awoken and taken recovery in stable condition after the incisions were closed with 3-0 Monocryl. Surgical Findings: left cystic ovary right ovary nodular Complications Complications: No 08/25/24 1521 Cosigner Signature (if applicable): CC: Dr. Treasure Cardoso MD; No Primary Care Physician~ Signed [facility]05-20-2025 Consult note Author Carmelo Mart [facility] Note Date/Time August 25, 2024 12:38 pm [facility] Medical Records Department [address] [place] [address] Pre-Anesthesia Evaluation 08/25/24 1236 MR#: [id number] Acct: [id number] Name: LM ALVARADO Rep #:[id number] : 1975 49 From: Carmelo Mart MD PCP: Care Physician,No Primary Status :[facility] Y Race: C Location: [facility] ASA Classification* ASA Classification ASA Classification: 2 Assessment & Plan Anesthesia* Anesthesia Assessment Anesthesia Assessment: Discussed sedation and/or anesthesia options, risks, benefits, and alternatives with patient/parents/legal guardian/POA. Questions invited. The patient/parents/legal guardian/POA seems to understand and agrees to proceedwith anesthesia plan. Reviewed the physical assessment, medical history, allergy history and patient home medications list prior to surgery/procedure/anesthetic and documented any changes. Performed airway and anesthesia risk assessments. Anesthesia Type Anesthesia Type: General (Multiple loose teeth . patient aware that may need to remove at least one since just dangling in mouth) Anesthesia Focused Assessment* Airway Assessment Mouth opens: >3 cm Mallampati Score: II Focused Labs Anesthesia Preop lab: CBC WBC 7.6 K/mm3 (4.4-11.0) 08/13/24 08:52 08/13/24 RBC 4.85 M/mm3 (4.2-5.4) 08/13/24 08:52 08/13/24 Hgb 15.6 g/dL (12.0-15.0) H 08/13/24 08:52 5 Hct 45.6 % (37-47) 08/13/24 08:52 08/13/24 Plt Count 285 K/mm3 (150-450) 08/13/24 08:52 08/13/24 CHEMISTRY Potassium 3.7 mmol/L (3.3-5.1) 07/08/24 18:50 07/08/24 Sodium 136 mmol/L (133-145) 07/08/24 18:50 07/08/24 BUN 13 mg/dL (4-19) 07/08/24 18:50 07/08/24 Creatinine 0.80 mg/dL (0.70-1.20) 07/08/24 18:50 07/08/24 Glucose 86 mg/dL (70-99) 07/08/24 18:50 07/08/24 COAG Pre-Assessment Diagnosis/Proposed Procedure Planned Operative Procedure(s): (R) Laparoscopic, Right Oopherectomy, possible Left Oophorectomy Anesthesia History Anesthesia History - 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 When Was Last Pacemaker Check QUESTION #4 FULL TEXT: You/Your Family Experience fever (hyperthermia) with Anesthesia Last Oral Intake Last Oral intake: Last Oral Intake NPO since Meds taken in AM with sips of water? Meds patient instructed to take am of surgery PONV PONV - wild life photographer: PONV - wild life photographer Female Yes 08/19/24 10:23 HX of Motion Sickness Yes 08/19/24 10:23 HX of N/V After Surgery No 08/19/24 10:23 Non-Smoker No 08/19/24 10:23 Duration of Surgery greater No 08/19/24 10:23 than 60 minutes Number of Risk Factors 2 08/19/24 10:23 PONV Score Moderate Risk 08/19/24 10:23 Height & Weight Height & Weight: Anesthesia: Height & Weight Height 5 ft 4 in 08/18/24 10:02 Respiratory Assessment Respiratory Assessment - wild life photographer: Respiratory Tract Infection Hx - wild life photographer Hx Respiratory Tract Infection No 08/19/24 10:23 STOP Sleep Apnea STOP Sleep Apnea - wild life photographer: STOP Sleep Apnea - wild life photographer Hx Hypertension No: hypotension 08/19/24 10:23 Hx Sleep Apnea No 08/19/24 10:23 CPAP BIPAP Do you snore loudly (louder No 08/19/24 10:23 than talking or can be heard Do you often feel tired/ No 08/19/24 10:23 fatigued/ sleepy during daytime? Has anyone observed you stop No 08/19/24 10:23 breathing during sleep? STOP Results Negative 08/19/24 10:23 QUESTION #5 FULL TEXT : Do you snore loudly (louder than talking or can be heard through closed doors)? 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 Specify any problems Hx of Preganancy in last 3 N/A 08/19/24 10:23 Months Nurse Filling Out Transfusion NBUCHER 08/19/24 10:23 & Questions: Date: 08/19/24 08/19/24 10:23 Time: 10:08/19/24 10:23 Patient unable to answer at this time (ie. confused, unrespo /Reproduction History /Reproductive History - wild life photographer: /Reproductive Hx- wild life photographer Hx Now No 08/19/24 10:23 Gestational Age (in weeks): EDC: Hx Hx Para Hx Section SAB No 08/19/24 10:23 Active Medications Active Medications: Current Medications Generic Name Dose Route Start Last Admin Trade Name Freq PRN Reason Stop Dose Admin Lactated Ringer's 1,000 mls @ 15 mls/hr 08/25/24 12:30 IV .Q48H KRISTEN PFSH Medical History Wears glasses MRSA infection Bipolar disorder Marijuana use Arthritis Bladder disease Pulmonary embolism Migraine headache Loose, teeth Smoker Interstitial cystitis Irritable bowel syndrome History of pulmonary embolism Anxiety Home Medications ?Medication ?Instructions ?Recorded ?Last Taken ?Type aripiprazole 20 mg tablet 20 mg PO DAILY 06/04/24 05/ 06:00 History clonazepam 0.5 mg tablet 0.5 mg PO QHS PRN anxiety 08/25/24 06:00 History cyclobenzaprine 10 mg tablet 10 mg PO TID PRN muscle s pasm #30 07/15/24 08/09/24 Rx tabs hydrocodone-acetaminophen 5-325mg 1 tab PO Q6H PRN PRN Pain 5 days 08/09/24 Unknown Rx 5mg-325mg #14 TABLETS enoxaparin 40 mg/0.4 mL 40 mg (0.4 mL) SQ DAILY 14 d ays 08/25/24 Unknown Rx subcutaneous syringe (Lovenox) #20 mL naproxen 500 mg tablet 500 mg PO BID PRN PRN Pain # 30 tabs 08/25/24 Unknown Rx Allergy/AdvReac Type Severity Reaction Status Date / Time metronidazole (From Flagyl) Allergy Severe Anaphylaxis Verified 08/25/24 12:35 Family History Grandmother Ovarian cancer, Onset Age: 69 Aunt Breast cancer, Onset Age: 45 Surgical History History of endometrial ablation Hx of tubal ligation History of back surgery H/O: hysterectomy Social History household members: spouse housing: house number of children: 3 current occupational status: employed current occupation: [employer] Smoking Status: Current every day smoker tobacco type: cigarettes and e- cigarettes do you feel safe at home: Yes additional social history: Boyfriend - Terence Review of Systems (Anesthesia) ROS Narrative System reviewed and no additional complaints, except as documented. 08/25/24 8098 <Electronically signed by Carmelo Mart MD > Date _ Carmelo Mart MD Cosigner Signature: Date CC: ~ Signed [facility] Work Phone: [phone] 433-304705-20-2025 History and physical note [facility] Medical Records Department [address] [place] [address] History & Physical Exam 08/25/24 0747 MR#: [id number] Acct: [id number] Name: LM ALVARADO Rep #:[id number] : 1975 49 From: Treasure madsen MD PCP: Care Physician,No Primary Status :[facility] Location: [place] [address] History and Physical Date of Admission: 08/25/24 Intake Vital Signs 08/14/2507:22 08/18/2509:02 08/18/2509:02 Height 5 ft 4 in 5 ft 4 in 5 ft 4 in Weight: 119 lb BMI 20.4 BP 111/73 Intake Visit Reasons: Laparoscopic Oophorectomy Inspector Crystal Required: No Is patient in pain?: Yes (pelvic pain) Pain scale (1-10): 6 Allergies metronidazole (From Flagyl) Allergy (Severe, Verified 08/19/24 10:21) Anaphylaxis Medications ?Medication ?Instructions ?Recorded ?Confirmed ?Type aripiprazole 20 mg tablet 20 mg PO DAILY 06/04/24 08/19/24 History clonazepam 0.5 mg tablet 0.5 mg PO QHS PRN anxiety 06/04/2408/19 History cyclobenzaprine 10 mg tablet 10 mg PO TID PRN muscle spasm #30 08/19/24 Rx tabs hydrocodone-acetaminophen 5-325mg 1 tab PO Q6H PRN PRN Pain 5 days 5 08/19/24 Rx 5mg-325mg #14 TABLETS Is last menstrual period known: No Patient : No : No PFSH Medical History (Updated 08/21/24 @ 16:[address] Treasure Cardoso MD) Wears glasses MRSA infection Bipolar disorder Marijuana use Arthritis Bladder disease Pulmonary embolism Migraine headache Loose, teeth Smoker Interstitial cystitis Irritable bowel syndrome History of pulmonary embolism Anxiety Surgical History (Updated 08/19/24 @ 10:37 by Cinthia Monterroso) History of endometrial ablation Hx of tubal ligation History of back surgery H/O: hysterectomy Family History Grandmother Ovarian cancer, Onset Age: 69Aunt Breast cancer, Onset Age: 45 Social History household members: spouse housing: house number of children: 3 current occupational status: employed current occupation: [employer] Smoking Status: Current every day smoker tobacco type: cigarettes and e-cigarettes do you feel safe at home: Yes additional social history: Boyfriend - Terence HPI Laparoscopic Oophorectomy Details: LM ALVARADO is a 49 year old who presents for follow-up and preoperative visit. Patient has hadcontinued intermittent pelvic pain worse on the right side that she has been to the ER multiple times for now. It is interfering withquality of life and daily life and limiting her ability to work. She is living in a [facility] at present. She states she wants to proceed with surgical management she is not a candidate for hormonal suppression due to her history ofa PE. She understands the risks of premature menopause and wants to proceed with some ovarian preservation if possible. Female Reproductive History Menopausal Symptoms: No night sweats History 6 Elective abortions 2 Hx Para 3 Spontaneous abortions 1 Hx # Term Pregnancies Ectopic pregnancies Hx # Pregnancies Multiple births # of living children 3 Past Pregnancies Del. Date Name GA/Weeks Outcome Route Bth Weight Infant Gen Labor Lgth Anesthesia Del Locatn Provider FOB Unknown 1994 Vinod live - full term Unknown 1996 Araceli live - Unknown 2002 Marely live - ROS Const Constitutional: Denies fatigue, night sweats, weight gain or weight loss ENT ENT: Reports system reviewed and no additional complaints, except as documented Cardio Card: Denies chest pain Resp Resp: Denies cough or dyspnea GI GI: Reports as per HPI and abdominal pain; Denies constipation, nausea or vomiting : Denies nipple discharge, urinary frequency, urinary incontinence, urinary hesitancy, urinary urgency, vaginal discharge, vaginal dryness, vaginal odor or vaginal pruritus Musc Musc: Denies arthralgias, back pain or muscle weakness Skin Skin/Breast: Denies alopecia, change in hair, dry skin, breast mass, breast pain, breast skin changes or nipple discharge Neuro Neuro: Reports system reviewed and no additional complaints, except as documented Psych Psych: Reports system reviewed and no additional complaints, except as documented Endo Endo: Reports cold intolerance; Denies excessive sweating, heat intolerance or polydipsia Roger/Lymph Hematologic/Lymphatic: Denies easy bleeding, Denies easy bruising and Denies lymphadenopathy Exam Const General: cooperative, healthy appearing, comfortable and no acute distress Orientation: alert [facility] Head: normal to inspection and normocephalic Ears: hearing grossly normal bilaterally and external ears normal Nose: external nose normal and nares normal Face and sinus: normal facial exam Neck Neck: normal visual inspection and no lymphadenopathy Thyroid: thyroid normal Chest Chest palpation & inspection: normal inspection of the chest Resp Effort & Inspection: normal respiratory effort Auscultation: clear to auscultation bilaterally Cardio Rate: regular rate Rhythm: regular rhythm Heart Sounds: S1 normal and S2 normal GI Inspection: normal to inspection and non-distended Palpation: soft and no hepatosplenomegaly Other: Tender in the right lower abdomen no rebound no masses palpated Musc Other: gross motor intact no deficits, full bilateral strength Skin General: no rashes or lesions noted Neuro General: patient alert, patient awake, moves all extremities and no focal motor deficits Motor: muscle tone normal throughout Extrem General: normal to inspection and no pedal edema Psych Appearance: grossly normal Mental Status: mental status grossly normal Affect: normal affect Speech and Movement: speech and movement normal Coding Level of Care Code No Charge Diagnoses Giselle N94.0 Pelvic pain R10.2 Hemorrhagic cyst of ovary N83.209 Assessment and Plan Assessment and Plan (1) Mittelschmerz: Status: Acute (2) Pelvic pain: Status: Acute Comment: Likely secondary to 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 Patient counseled regarding options of bilateral ovarian removal versus right ovary removal due to pelvic pain beingprimarily on the right side. Discussed the risk of premature menopause the patient wishes to retainovarian function if possible. Plan right oophorectomy and left ovarian cystectomy if there is left ovarian pathology present. (3) Hemorrhagic cyst of ovary: Status: Acute Comment: right side and then left. possible that the repeat US shows the same side havinga cyst. Plan Problem list updated and treatment plans were reviewed with the patient and relevant educational handouts given. See problem list details for specific planinformation. After discussing the patient's diagnosis and treatment plan options, patient wishes to proceed withsurgical management. I have discussed with the patient the risks, benefits, and alternatives of theprocedure which include but are notlimited to risks of anesthesia, bleeding, infection, possible damage to bowel, bladder, or surrounding vasculature which could lead to additional surgery to evaluate any complications. Patient agrees to procedure and wishes to proceed. ACOG/uptodate references given for additional information regarding procedure. plan 2 weeks lovenox postop 08/25/24 0747 Cosigner Signature (if applicable): CC: Dr. Treasure Cardoso MD; No Primary Care Physician~ Signed ADDENDUM by Dr. Treasure Cardoso MD on 08/25/24 at 1418 Addendum UPDATE- I have seen the patient and performed any clinically relevant updates to the history and physical exam. Treasure Cardoso MD 08/25/24 1418 Cosigner Signature (if applicable): cc: Dr. Treasure Cardoso MD; No Primary Care Physician ~* Signed [facility]05-20-2025 Consult note [facility] Medical Records Department [address] [place] [address] Pre-Anesthesia Evaluation 08/25/24 1236 MR#: [id number] Acct: [id number] Name: LM ALVARADO Rep #:[id number] : 1975 49 From: Carmelo Mart MD PCP: Care Physician,No Primary Status :[facility] Y Race: C Location: [facility] ASA Classification* ASA Classification ASA Classification: 2 Assessment & Plan Anesthesia* Anesthesia Assessment Anesthesia Assessment: Discussed sedation and/or anesthesia options, risks, benefits, and alternatives with patient/parents/legal guardian/POA. Questions invited. The patient/parents/legal guardian/POA seems to understand and agrees to proceedwith anesthesia plan. Reviewed the physical assessment, medical history, allergy history and patient home medications list prior to surgery/procedure/anesthetic and documented any changes. Performed airway and anesthesia risk assessments. Anesthesia Type Anesthesia Type: General (Multiple loose teeth . patient aware that may need to remove at least onesince just dangling in mouth) Anesthesia Focused Assessment* Airway Assessment Mouth opens: >3 cm Mallampati Score: II Focused Labs Anesthesia Preop lab: CBC WBC 7.6 K/mm3 (4.4-11.0) 08/13/24 08:52 08/13/24 RBC 4.85 M/mm3 (4.2-5.4) 08/13/24 08:52 08/13/24 Hgb 15.6 g/dL (12.0-15.0) H 08/13/24 08:52 5 Hct 45.6 % (37-47) 08/13/24 08:52 08/13/24 Plt Count 285 K/mm3 (150-450) 08/13/24 08:52 08/13/24 CHEMISTRY Potassium 3.7 mmol/L (3.3-5.1) 07/08/24 18:50 07/08/24 Sodium 136 mmol/L (133-145) 07/08/24 18:50 07/08/24 BUN 13 mg/dL (4-19) 07/08/24 18:50 07/08/24 Creatinine 0.80 mg/dL (0.70-1.20) 07/08/24 18:50 07/08/24 Glucose 86 mg/dL (70-99) 07/08/24 18:50 07/08/24 COAG Pre-Assessment Diagnosis/Proposed Procedure Planned Operative Procedure(s): (R) Laparoscopic, Right Oopherectomy, possible Left Oophorectomy Anesthesia History Anesthesia History - 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 When Was Last Pacemaker Check QUESTION #4 FULL TEXT: You/Your Family Experience fever (hyperthermia) with Anesthesia Last Oral Intake Last Oral intake: Last Oral Intake NPO since Meds taken in AM with sips of water? Meds patient instructed to take am of surgery PONV PONV - wild life photographer: PONV - wild life photographer Female Yes 08/19/24 10:23 HX of Motion Sickness Yes 08/19/24 10:23 HX of N/V After Surgery No 08/19/24 10:23 Non-Smoker No 08/19/24 10:23 Duration of Surgery greater No 08/19/24 10:23 than 60 minutes Number of Risk Factors 2 08/19/24 10:23 PONV Score Moderate Risk 08/19/24 10:23 Height & Weight Height & Weight: Anesthesia: Height & Weight Height 5 ft 4 in 08/18/24 10:02 Respiratory Assessment Respiratory Assessment - wild life photographer: Respiratory Tract Infection Hx - wild life photographer Hx Respiratory Tract Infection No 08/19/24 10:23 STOP Sleep Apnea STOP Sleep Apnea - wild life photographer: STOP Sleep Apnea - wild life photographer Hx Hypertension No: hypotension 08/19/24 10:23 Hx Sleep Apnea No 08/19/24 10:23 CPAP BIPAP Do you snore loudly (louder No 08/19/24 10:23 than talking or can be heard Do you often feel tired/ No 08/19/24 10:23 fatigued/ sleepy during daytime? Has anyone observed you stop No 08/19/24 10:23 breathing during sleep? STOP Results Negative 08/19/24 10:23 QUESTION #5 FULL TEXT : Do you snore loudly (louder than talking or can be heard through closeddoors)? 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 Specify any problems Hx of Preganancy in last 3 N/A 08/19/24 10:23 Months Nurse Filling Out Transfusion NBUCHER 08/19/24 10:23 & Questions: Date: 08/19/24 08/19/24 10:23 Time: 08/19/24 10:23 Patient unable to answer at this time (ie. confused, unrespo /Reproduction History /Reproductive History - wild life photographer: /Reproductive Hx- wild life photographer Hx Now No 08/19/24 10:23 Gestational Age (in weeks): EDC: Hx Hx Para Hx Section SAB No 08/19/24 10:23 Active Medications Active Medications: Current Medications Generic Name Dose Route Start Last Admin Trade Name Freq PRN Reason Stop Dose Admin Lactated Ringer's 1,000 mls @ 15 mls/hr 08/25/24 12:30 IV .Q48H KRISTEN PFSH Medical History Wears glasses MRSA infection Bipolar disorder Marijuana use Arthritis Bladder disease Pulmonary embolism Migraine headache Loose, teeth Smoker Interstitial cystitis Irritable bowel syndrome History of pulmonary embolism Anxiety Home Medications ?Medication ?Instructions ?Recorded ?Last Taken ?Type aripiprazole 20 mg tablet 20 mg PO DAILY 06/04/2408/07 06:00 History clonazepam 0.5 mg tablet 0.5 mg PO QHS PRN anxiety 08/25/24 06:00 History cyclobenzaprine 10 mg tablet 10 mg PO TID PRN muscle s pasm #30 07/15/24 08/09/24 Rx tabs hydrocodone-acetaminophen 5-325mg 1 tab PO Q6H PRN PRN Pain 5 days 08/09/24 Unknown Rx 5mg-325mg #14 TABLETS enoxaparin 40 mg/0.4 mL 40 mg (0.4 mL) SQ DAILY 14 d ays 08/25/24 Unknown Rx subcutaneous syringe (Lovenox) #20 mL naproxen 500 mg tablet 500 mg PO BID PRN PRN Pain # 30 tabs 08/25/24 Unknown Rx Allergy/AdvReac Type Severity Reaction Status Date / Time metronidazole (From Flagyl) Allergy Severe Anaphylaxis Verified 08/25/24 12:35 Family History Grandmother Ovarian cancer, Onset Age: 69 Aunt Breast cancer, Onset Age: 45 Surgical History History of endometrial ablation Hx of tubal ligation History of back surgery H/O: hysterectomy Social History household members: spouse housing: house number of children: 3 current occupational status: employed current occupation: [employer] Smoking Status: Current every day smoker tobacco type: cigarettes and e-cigarettes do you feel safe at home: Yes additional social history: Boyfriend - Terence Review of Systems (Anesthesia) ROS Narrative System reviewed and no additional complaints, except as documented. 08/25/24 1238 > Date _ Carmelo Mart MD [facility] Signature: Date CC: ~ Signed [facility]05-20-2025 [facility] Medical Records Department [address] [place] [address] History Physical Exam 08/25/24 0747 MR#: [id number] Acct: [id number] Name: LM ALVARADO Rep #: [id number] : 1975 49 From: Treasure Cardoso MD PCP: Care Physician,No Primary Status:[facility] Location: [place] [address] History and Physical Date of Admission: 08/25/24 Intake Vital Signs 08/14/2507:22 08/18/2509:02 08/18/2509:02 Height 5 ft 4 in 5 ft 4 in 5 ft 4 in Weight: 119 lb BMI 20.4 BP 111/73 Intake Visit Reasons: Laparoscopic Oophorectomy Inspector Crystal Required: No Is patient in pain?: Yes (pelvic pain) Pain scale (1-10): 6 Allergies metronidazole (From Flagyl) Allergy (Severe, Verified 08/19/24 10:21) Anaphylaxis Medications ???Medication ???Instructions ???Recorded ???Confirmed ???Type aripiprazole 20 mg tablet 20 mg PO DAILY 06/04/24 08/19/24 History clonazepam 0.5 mg tablet 0.5 mg PO QHS PRN anxiety 06/04/24 08/19/24 Histor y cyclobenzaprine 10 mg tablet 10 mg PO TID PRN muscle spasm #30 07/15/24 5 Rx tabs hydrocodone-acetaminophen 5-325mg 1 tab PO Q6H PRN PRN Pain 5 days 08/09/24 08/19/24 Rx 5mg-325mg #14 TABLETS Is last menstrual period known: No Patient : No : No PFSH Medical History (Updated 08/21/24 @ 16:[address] Treasure Cardoso MD) Wears glasses MRSA infection Bipolar disorder Marijuana use Arthritis Bladder disease Pulmonary embolism Migraine headache Loose, teeth Smoker Interstitial cystitis Irritable bowel syndrome History of pulmonary embolism Anxiety Surgical History (Updated 08/19/24 @ 10:37 by Cinthia Monterroso) History of endometrial ablation Hx of tubal ligation History of back surgery H/O: hysterectomy Family History Grandmother Ovarian cancer, Onset Age: 69Aunt Breast cancer, Onset Age: 45 Social History household members: spouse housing: house number of children: 3 current occupational status: employed current occupation: [employer] Smoking Status: Current every day smoker tobacco type: cigarettes and e-cigarettes do you feel safe at home: Yes additional social history: Boyfriend - Terence [facility] Laparoscopic Oophorectomy Details: LM ALVARADO is a 49 year old who presents for follow-up and preoperative visit. Patient has had continued intermittent pelvic pain worse on the right side that she has been to the ER multiple times for now. It is interfering with quality of life and daily life and limiting her ability to work. She is living in a [facility] at present. She states she wants to proceed with surgical management she is not a candidate for hormonal suppression due to her history of a PE. She understands the risks of premature menopause and wants to proceed with some ovarian preservation if possible. Female Reproductive History Menopausal Symptoms: No night sweats History 6 Elective abortions 2 Hx Para 3 Spontaneous abortions 1 Hx # Term Pregnancies Ectopic pregnancies Hx # Pregnancies Multiple births # of living children 3 Past Pregnancies Del. Date Name GA/Weeks Outcome Route Bth Weight Infant Gen Labor Lgth Anesthesia Del Locatn Provider FOB Unknown 1994 Vinod live - full term Unknown 1996 Araceli live - Unknown 2002 Marely live - ROS Const Constitutional: Denies fatigue, night sweats, weight gain or weight loss ENT ENT: Reports system reviewed and no additional complaints, except as documented Cardio Card: Denies chest pain Resp Resp: Denies cough or dyspnea GI GI: Reports as per HPI and abdominal pain; Denies constipation, nausea or vomiting : Denies nipple discharge, urinary frequency, urinary incontinence, urinary hesitancy, urinary urgency, vaginal discharge, vaginal dryness, vaginal odor or vaginal pruritus Musc Musc: Denies arthralgias, back pain or muscle weakness Skin Skin/Breast: Denies alopecia, change in hair, dry skin, breast mass, breast pain, breast skin changes or nipple discharge Neuro Neuro: Reports system reviewed and no additional complaints, except as documented Psych Psych: Reports system reviewed and no additional complaints, except as documented Endo Endo: Reports cold intolerance; Denies excessive sweating, heat intolerance or polydipsia Roger/Lymph Hematologic/Lymphatic: Denies easy bleeding, Denies easy bruising and Denies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 reduction techniques were used (e.g., Automated exposure control, adjustment of the mA and/or kV according to patient size, use of iterative reconstruction technique. RADIATION DOSE SUMMARY: CTDlvol: 17 mGy DLP: 334 mGycm COMPARISON: CT of the abdomen and pelvis dated 02/20/2024. FINDINGS: Lung bases: Small focal area of opacity involving the right lower lobe, this is similar in appearance to the prior study from February 2024, this may represent focal area of atelectasis/scarring. Heart size is normal. No pericardial effusion. Liver: Normal size. No mass. Gallbladder: Unremarkable Spleen: Normal size. Pancreas: Normal size without evidence of mass surrounding inflammation or ductal dilation. Adrenals: Unremarkable Kidneys: 1.7 cm right renal cyst. No follow-up is recommended. No evidence of hydronephrosis or nephrolithiasis bilaterally. Bladder: Urinary bladder is grossly unremarkable. Reproductive Organs: Status post hysterectomy. 5.3 cm right adnexal cystic lesion with a Hounsfieldunit of 13, likely representing ovarian cysts. Bowel: Evaluation of the bowel loops are limited due to lack of oral contrast. The stomach is grossly unremarkable. No inflammatory changes of the small or large bowel. Fluid-filled portions of the small bowel within the pelvis, no wall thickening or dilatation, may represent ileus. Appendix: Unremarkable. Lymph nodes: No lymphadenopathy. Vasculature: Mild diffuse atherosclerotic calcifications are noted. Peritoneum / Retroperitoneum: No free fluid or free air. Bones: Mild degenerative changes of the lumbar spine. CT/Abdomen/Pelvis W IV Cont ONLY IMPRESSION: No evidence of acute appendicitis. 5.3 cm right ovarian cyst. Recommend pelvic ultrasound for further characterization. Fluid-filled portions of the distal small bowel within the pelvis, may representileus, no wall thickening or distention to suggest obstruction. Please see other nonacute findings as described above. Reading [facility] CC: Dr. Vickie Louie, DO ~ Senior Technical Support Analyst: Signed [facility]04-02-2025 History of Present illness Narrative* Kathleen Beck APRN.RENEE - 07/08/2024 6:27 PM EDT Patient triaged at [facility]. Here today with worsening rlq abd pain over last month, now not able to sleep. Patient in no apparent distress at time of triage. I will [facility] NoteHNO ID: [id number] Author: KATHLEEN BECK APRN.RENEE Service: ? Author Type: Nurse Practitioner Type: Progress Notes Filed: 07/08/2024 18:27 Note Text: Patient triaged at [facility]. Here today with worsening rlq abd pain over last month, now not able to sleep. Patient in no apparent distress at time of triage. I will refer to [facility]01-19-2025 Emergency department Note * Karla Sam PA-C - 04/26/2024 4:28 PM ESTAssociated Order(s): Incision and Drainage [facility] ED eMERGENCY dEPARTMENT eNCOUnter Pt Name: Lm Alvarado Birthdate 1975 Date of evaluation: 04/26/2024 Provider: Karla Sam PA-C CHIEF COMPLAINT Chief Complaint Patient presents with Cyst Pt states she has a cyst on pubic/groin region. States she has been on antibiotics for a week and ahalf but it has become much more painful today. Denies drainage or redness, fever or chills. HISTORY OF PRESENT ILLNESS (Location/Symptom, Timing/Onset,Context/Setting, Quality, Duration, Modifying Factors, Severity) Note limiting factors. JJ Alvarado is a 49 y.o. female who presents to the emergency department complaining of an abscess to the right groin. Patient has been through 2 courses of doxycycline with no relief. She statesit feels fluid-filled. She is now getting pain further into the groin. No documented fevers. Nursing Notes were reviewed. REVIEW OF SYSTEMS (2+ for4; 10+ for level 5) Review of Systems Constitutional: Negative for chills and fever. HENT: Negative for ear pain and sore throat. Eyes: Negative for pain and visual disturbance. Respiratory: Negative for cough and shortness of breath. Cardiovascular: Negative for chest pain and palpitations. Gastrointestinal: Negative for abdominal pain and vomiting. Genitourinary: Negative for dysuria and hematuria. Musculoskeletal: Negative for arthralgias and back pain. Skin: Negative for color change and rash. Abscess right groin Neurological: Negative for seizures and syncope. All other systems reviewed and are negative. PAST MEDICAL HISTORY Past Medical History: Diagnosis Date Bipolar 1 disorder (HCC) Sleep deprivation SURGICALHISTORY Past Surgical History: Procedure Laterality Date BACK SURGERY 2005 HYSTERECTOMY CURRENT MEDICATIONS Discharge Medication List as of 04/26/2024 6:12 PM CONTINUE these medications which have NOT CHANGED Details methocarbamol (Robaxin) 500 MG tablet Take 1 tablet (500 mg) by mouth every 6 hours as needed for muscle spasms for up to 8 days., Starting 04/01/2024, Until Lesley 04/09/2024 at 2359, Normal Flagyl [metronidazole] FAMILY HISTORY No family history on file. SOCIAL HISTORY Social History Socioeconomic History Marital status: Single Tobacco Use Smoking status: Every Day Types: Cigarettes Smokeless tobacco: Never Vaping Use Vaping status: Never Used Substance and Sexual Activity Alcohol use: Not Currently Drug use: Never SCREENINGS PHYSICAL EXAM (5+ for level 4, 8+ for level 5) @EDTRIAGEVSS@ Physical Exam Vitals and nursing note reviewed. Constitutional: General: She is not in acute distress. Appearance: Normal appearance. She is well-developed. HENT: Head: Normocephalic and atraumatic. Eyes: Conjunctiva/sclera: Conjunctivae normal. Cardiovascular: Rate and Rhythm: Normal rate and regular rhythm. Heart sounds: No murmur heard. Pulmonary: Effort: Pulmonary effort is normal. No respiratory distress. Breath sounds: Normal breath sounds. Musculoskeletal: General: No swelling. Skin: General: Skin is warm and dry. Comments: Patient has a tender fluctuant abscess in the right groin measuring approximately 4 cm. No open lesion or drainage. No surrounding cellulitis. Neurological: Mental Status: She is alert and oriented to person, place, and time. Psychiatric: Mood and Affect: Mood normal. Behavior: Behavior normal. DIAGNOSTIC RESULTS EKG (Per Emergency Physician): RADIOLOGY (Per EmergencyPhysician): Interpretation per the Radiologist below, if available at the time of this note: @EDRISRSLT@ : Labs Reviewed - No data to display All other labs were within normal range or not returned as of this dictation. EMERGENCY DEPARTMENT COURSE and DIFFERENTIALDIAGNOSIS/MDM: Vitals: Vitals: 04/26/24 1629 BP: 113/82 Pulse: 95 Resp: 20 Temp: 36.4 C (97.6 F) TempSrc: Temporal SpO2: 98% Medications oxyCODONE-acetaminophen (Percocet) 5-325 MG per tablet 1 tablet (1 tablet Oral Given 04/26/24 1720) Medical Decision Making Patient presents to the emergency department complaining of an abscess to the right groin. She has been through 2 courses of doxycycline. She is concerned it may need I&D. No documented fevers. Differential diagnosis includes abscess right groin, cellulitis Chronic conditions impacting care: Bipolar 1 disorder, ovarian cyst, interstitial cystitis Social determinants affecting health: Nicotine dependence ED diagnostics interpreted by me included physical exam. ED medications included Percocet x 1 p.o. and 1% lidocaine with epinephrine for local infiltration. I&D of the right groin abscess was performed. Patient tolerated the procedure well. Patient was discharged home. She is given home-going instruction on abscesses. She is to apply warmcompresses to the area. I will send a prescription for Keflex and Percocet to her local pharmacy. She can follow-up with for wound check with her primary care physician in 3 days. She can return should signs and symptoms worsen in any way or any other concerns develop. Patient expressed an understanding of verbal instruction and had no further questions at the time of discharge. This patient was seen by myself, within my scope of practice, with the Emergency Department physician available for consultation at all times if needed. CONSULTS: None PROCEDURES: Unless otherwise noted below, none Incision and Drainage Performed by: Karla Sam PA-C Authorized by: Karla Sam PA-C Consent: The indications, risks, benefits, alternatives to the procedure were explained to the patient/surrogate decision maker and their questions answered. Consent was obtained to proceed with the procedure. Timeout: Completed immediately prior to the start of the procedure which included verification of the correct patient, correct site and agreement on the procedure to be done. Indications: Indications: abscess Anesthetic: Local anesthetic used: lidocaine with epinephrine Preparation: Patient was prepped and draped in usual sterile fashion Skin prepped: skin prepped with povidone-iodine Procedure Details: Procedure Type: abscess Location 1: abdomen (Right groin) Complexity: simple Ultrasound guidance: no Needle aspiration: no needle aspiration Incision types: single straight Incision depth: subcutaneous Post-procedure: Wound treatment: dressing applied Specimen(s) sent to lab: no Drainage: bloody and purulent Drainage amount: scant Estimated blood loss: < 5 mL Specify Complication(s): no apparent complications Assistants & Supervision: I personally performed the procedure documented as signed by this procedure note Corrugator Supervisor(s): N/A No supervision required Patients symptoms are consistent with sepsis, severe sepsis, or septic shock (If yes use .sepsiscoremeasure): No FINAL IMPRESSION 1. Abscess of groin, right DISPOSITION/PLAN DISPOSITION Discharge 04/26/2024 06:10:06 PM PATIENT REFERRED TO: Delano Mayen DO [id number] [facility] [id number] Schedule an appointment as soon as possible for a visit in 3 days For wound re-check DISCHARGE MEDICATIONS: Discharge Medication List as of 04/26/2024 6:12 PM START taking these medications Details cephalexin (Keflex) 500 MG capsule Take 2 capsules (1,000 mg) by mouth 2 times daily for 7 days., Starting 04/26/2024, Until 05/03/2024, Normal oxyCODONE-acetaminophen (Percocet) 5-325 MG tablet Take 1 tablet by mouth every 6 hours as needed for moderate pain (4-6) for up to 2 days., Starting 04/26/2024, Until Tu04/28/2024 at 2359, Normal @[facility]([id number]:LAST:1)@ (Please note: Portions of this note were completed with a voice recognition program. Efforts were made to edit thedictations but occasionally words and phrases are mis-transcribed.) Form [id number].[id number] Karla Sam PA-C (electronically signed) Emergency Medicine Provider Karla Sam PA-C 04/27/24 0015 documented in this [facility]01-19-2025 Physician Emergency department Note* Karla Sam PA-C - 04/26/2024 4:28 PM ESTAssociated Order(s): Incision and Drainage [facility] eMERGENCY dEPARTMENT eNCOUnter Pt Name: Lm Alvarado Birthdate 1975 Date of evaluation: 04/26/2024 Provider: Karla Sam PA-C CHIEF COMPLAINT Chief Complaint Patient presents with Cyst Pt states she has a cyst on pubic/groin region. States she has been on antibiotics for a week and ahalf but it has become much more painful today. Denies drainage or redness, fever or chills. HISTORY OF PRESENT ILLNESS (Location/Symptom, Timing/Onset,Context/Setting, Quality, Duration, Modifying Factors, Severity) Note limiting factors. HPI Lm Alvarado is a 49 y.o. female who presents to the emergency department complaining of an abscess to the right groin. Patient has been through 2 courses of doxycycline with no relief. She statesit feels fluid-filled. She is now getting pain further into the groin. No documented fevers. Nursing Notes were reviewed. REVIEW OF SYSTEMS (2+ for4; 10+ for level 5) Review of Systems Constitutional: Negative for chills and fever. HENT: Negative for ear pain and sore throat. Eyes: Negative for pain and visual disturbance. Respiratory: Negative for cough and shortness of breath. Cardiovascular: Negative for chest pain and palpitations. Gastrointestinal: Negative for abdominal pain and vomiting. Genitourinary: Negative for dysuria and hematuria. Musculoskeletal: Negative for arthralgias and back pain. Skin: Negative for color change and rash. Abscess right groin Neurological: Negative for seizures and syncope. All other systems reviewed and are negative. PAST MEDICAL HISTORY Past Medical History: Diagnosis Date Bipolar 1 disorder (HCC) Sleep deprivation SURGICALHISTORY Past Surgical History: Procedure Laterality Date BACK SURGERY 2006 HYSTERECTOMY CURRENT MEDICATIONS Discharge Medication List as of 04/26/2024 6:12 PM CONTINUE these medications which have NOT CHANGED Details methocarbamol (Robaxin) 500 MG tablet Take 1 tablet (500 mg) by mouth every 6 hours as needed for muscle spasms for up to 8 days., Starting 04/01/2024, Until Lesley 04/09/2024 at 2359, Normal Flagyl [metronidazole] FAMILY HISTORY No family history on file. SOCIAL HISTORY Social History Socioeconomic History Marital status: Single Tobacco Use Smoking status: Every Day Types: Cigarettes Smokeless tobacco: Never Vaping Use Vaping status: Never Used Substance and Sexual Activity Alcohol use: Not Currently Drug use: Never SCREENINGS PHYSICAL EXAM (5+ for level 4, 8+ for level 5) @EDTRIAGEVSS@ Physical Exam Vitals and nursing note reviewed. Constitutional: General: She is not in acute distress. Appearance: Normal appearance. She is well-developed. HENT: Head: Normocephalic and atraumatic. Eyes: Conjunctiva/sclera: Conjunctivae normal. Cardiovascular: Rate and Rhythm: Normal rate and regular rhythm. Heart sounds: No murmur heard. Pulmonary: Effort: Pulmonary effort is normal. No respiratory distress. Breath sounds: Normal breath sounds. Musculoskeletal: General: No swelling. Skin: General: Skin is warm and dry. Comments: Patient has a tender fluctuant abscess in the right groin measuring approximately 4 cm. No open lesion or drainage. No surrounding cellulitis. Neurological: Mental Status: She is alert and oriented to person, place, and time. Psychiatric: Mood and Affect: Mood normal. Behavior: Behavior normal. DIAGNOSTIC RESULTS EKG (Per Emergency Physician): RADIOLOGY (Per EmergencyPhysician): Interpretation per the Radiologist below, if available at the time of this note: @EDRISRSLT@ : Labs Reviewed - No data to display All other labs were within normal range or not returned as of this dictation. EMERGENCY DEPARTMENT COURSE and DIFFERENTIALDIAGNOSIS/MDM: Vitals: Vitals: 04/26/24 1629 BP: 113/82 Pulse: 95 Resp: 20 Temp: 36.4 C (97.6 F) TempSrc: Temporal SpO2: 98% Medications oxyCODONE-acetaminophen (Percocet) 5-325 MG per tablet 1 tablet (1 tablet Oral Given 04/26/24 1720) Medical Decision Making Patient presents to the emergency department complaining of an abscess to the right groin. She has been through 2 courses of doxycycline. She is concerned it may need I&D. No documented fevers. Differential diagnosis includes abscess right groin, cellulitis Chronic conditions impacting care: Bipolar 1 disorder, ovarian cyst, interstitial cystitis Social determinants affecting health: Nicotine dependence ED diagnostics interpreted by me included physical exam. ED medications included Percocet x 1 p.o. and 1% lidocaine with epinephrine for local infiltration. I&D of the right groin abscess was performed. Patient tolerated the procedure well. Patient was discharged home. She is given home-going instruction on abscesses. She is to apply warmcompresses to the area. I will send a prescription for Keflex and Percocet to her local pharmacy. She can follow-up with for wound check with her primary care physician in 3 days. She can return should signs and symptoms worsen in any way or any other concerns develop. Patient expressed an understanding of verbal instruction and had no further questions at the time of discharge. This patient was seen by myself, within my scope of practice, with the Emergency Department physician available for consultation at all times if needed. CONSULTS: None PROCEDURES: Unless otherwise noted below, none Incision and Drainage Performed by: Karla Sam PA-C Authorized by: Karla Sam PA-C Consent: The indications, risks, benefits, alternatives to the procedure were explained to the patient/surrogate decision maker and their questions answered. Consent was obtained to proceed with the procedure. Timeout: Completed immediately prior to the start of the procedure which included verification of the correct patient, correct site and agreement on the procedure to be done. Indications: Indications: abscess Anesthetic: Local anesthetic used: lidocaine with epinephrine Preparation: Patient was prepped and draped in usual sterile fashion Skin prepped: skin prepped with povidone-iodine Procedure Details: Procedure Type: abscess Location 1: abdomen (Right groin) Complexity: simple Ultrasound guidance: no Needle aspiration: no needle aspiration Incision types: single straight Incision depth: subcutaneous Post-procedure: Wound treatment: dressing applied Specimen(s) sent to lab: no Drainage: bloody and purulent Drainage amount: scant Estimated blood loss: < 5 mL Specify Complication(s): no apparent complications Assistants & Supervision: I personally performed the procedure documented as signed by this procedure note Corrugator Supervisor(s): N/A No supervision required Patients symptoms are consistent with sepsis, severe sepsis, or septic shock (If yes use .sepsiscoremeasure): No FINAL IMPRESSION 1. Abscess of groin, right DISPOSITION/PLAN DISPOSITION Discharge 04/26/2024 06:10:06 PM PATIENT REFERRED TO: Delano Mayen DO [address] [facility] [address] Schedule an appointment as soon as possible for a visit in 3 days For wound re-check DISCHARGE MEDICATIONS: Discharge Medication List as of 04/26/2024 6:12 PM START taking these medications Details cephalexin (Keflex) 500 MG capsule Take 2 capsules (1,000 mg) by mouth 2 times daily for 7 days., Starting 04/26/2024, Until 05/03/2024, Normal oxyCODONE-acetaminophen (Percocet) 5-325 MG tablet Take 1 tablet by mouth every 6 hours as needed for moderate pain (4-6) for up to 2 days., Starting 04/26/2024, Until 04/28/2024 at 2359, Normal @[facility]([id number]:LAST:1)@ (Please note: Portions of this note were completed with a voice recognition program. Efforts were made to edit thedictations but occasionally words and phrases are mis-transcribed.) Form [id number] Kalra Sam PA-C (electronically signed) Emergency Medicine Provider Karla Sam PA-C 04/27/24 0015 [facility]12-25-2024 Hospital Discharge instructions* Discharge Instructions* Hemal Choe DO - 04/01/2024 5:52 AM EST Return to the ER for any uncontrolled pain, fevers, if you are not urinating, if you stool on yourself, if you have numbness in your groin, or if you have other concerns. Take Tylenol 1000 mg every 6hours and ibuprofen 600 mg every 6 hours as needed for pain. Take ibuprofen on a full stomach. You can use a heating pad or ice, whichever helps your pain. You can apply a lidocaine patch to the area (available via prescription or over the counter, either is fine). I am writing you for a muscle relaxant and a narcotic pain medication for breakthrough pain. These can both make you sleepy and impair your ability to drive or operate heavy machinery. Please be careful taking them and only use as needed. Follow up with your PCP if symptoms do not improve. * Attachments The following attachments cannot be sent through Care Everywhere. * Sciatica (Dutch) documented in this [facility]12-23-2024 Telephone encounter Note* Telephone Encounter - Karla Ray - 03/30/2024 1:40 PM EST Patient returned call and was notified of message below regarding LAB results per provider. Patient acknowledged understanding of instructions and has no further questions. Karla Ray [facility]12-23-2024 Miscellaneous Notes* Telephone Encounter - Karla Ray - 03/30/2024 1:40 PM EST Patient returned call and was notified of message below regarding LAB results per provider. Patient acknowledged understanding of instructions and has no further questions. Karla Ray * Telephone Encounter - Madiha Iyer MA - 03/30/2024 12:22 PM EST Left message for pt to call the office. Madiha Iyer MA * Telephone Encounter - Akilah Balderrama PA-C - 03/30/2024 12:09 PM EST Pt's Devendra genetic testing was all negative (good!). She can have an office visit to go over results in more detail or pick up attendant a copy. Akilah Balderrama PA-C [facility] encounter Note * Telephone Encounter - Madiha Iyer MA - 03/30/2024 12:22 PM EST Left message for pt to call the office. Madiha Iyer MA [facility]12-23-2024 Telephone encounter Note* Telephone Encounter - Akilah Balderrama PA-C - 03/30/2024 12:09 PM EST Pt's Devendra genetic testing was all negative (good!). She can have an office visit to go over results in more detail or pick up attendant a copy. Akilah Balderrama PA-C [facility]12-04-2024 History of Present illness Narrative* Akilah Balderrama PA-C - 03/11/2024 10:23 AM EST SUBJECTIVE Lm Monaco is a 48-year-old new patient who presents for her annual exam. Last pap- 3-4 years ago? States it was abnormal. Discussed cotesting for HPV this year. Last mammo- 4 years ago? No LMP recorded. Patient has had a hysterectomy. Pt was informed that she had a thickening in her vaginal cuff per CT scan. Denies vaginal itching, burning, discharge, or bleeding. Declines STD testing. C/o occasional painful intercourse. Discussed health maintenance, including regular aerobic exercise, lowsugar diet, and periodic exams. Completed depression screening. Discussed genetic testing due to family hx of cancers. Pt states she has IC; has seen urology in the past for bladder instillations and would like to reestablish with urogyn now. Pt also c/o constipation causing pain and a lot of pressure. She has been using Colace for a month with good success but she doesn't think she should use it this long. Encouraged colonoscopy. Offered samples of Trulance to try. HISTORIES FAMILY HISTORY Problem Relation Age of Onset other (BRCA Negative?) Mother Ovarian cancer Maternal Grandmother 69 Colon Cancer Maternal Grandfather 72 other (transgender male to female) Son Breast Cancer Paternal Aunt 47 Brain Cancer Maternal cousin 14 Colon Cancer Maternal cousin 34 Colon Cancer Maternal cousin 39 Colon Cancer Other 47 PAST MEDICAL HISTORY Diagnosis Date Abnormal Pap smear of vagina Anemia Bipolar disorder (HCC) Constipation Depression Diarrhea Dyspareunia in female Hypotension Interstitial cystitis Migraines Ovarian cyst Pulmonary embolism (HCC) after back surgery PAST SURGICAL HISTORY Procedure Laterality Date BACK SURGERY HX 2006 L3 & L4 BLADDER SURGERY HX 2009 bladder distention x4 LIGATE FALLOPIAN TUBE 2004 S BALLOON,UTERINE ABLATION [id number] 2005 VAGINAL HYSTERECTOMY 2013 ovaries remain Social History Tobacco Use Smoking status: Every Day Current packs/day: 1.00 Types: Cigarettes Passive exposure: Current Smokeless tobacco: Never Vaping Use Vaping status: Never Used Substance Use Topics Alcohol use: Not Currently Drug use: Never There is no problem list on file for this patient. ALLERGIES Allergen Reactions Flagyl [Metronidazo* Anaphylaxis Flagyl [Metronidazo* Anaphylaxis Ketorolac Trometham* Other: See Comments Upsets her bladder Nalbuphine Mental Status Change Lost consciousness Current Outpatient Medications Medication Sig ARIPiprazole (ABILIFY) 15 mg tablet Take 15 mg by mouth once daily. QUEtiapine (SEROQUEL) 25 mg tablet Take 25 mg by mouth as needed. docusate sodium (COLACE ORAL) Take 1 tablet by mouth once daily. No current facility-administered medications for this visit. REVIEW OF SYSTEMS GENERAL: No weight loss, malaise or fevers HEENT: No changes in hearing or vision NECK: Negative for lumps, goiter, pain and significant neck swelling RESPIRATORY: Negative for cough, wheezing, dyspnea or shortness of breath CARDIOVASCULAR: Negative for chest pain or palpitations GI: Negative for abdominal discomfort, blood in stools or black stools, change in bowel habit, diarrhea, nausea, vomiting, constipation : No history of dysuria, frequency or incontinence MACHINE OPERATOR: Negative for abnormal vaginal bleeding, abnormal vaginal discharge or Breast symptoms ENDOCRINE: Negative for cold or heat intolerance, polyuria, polydipsia and goiter NEURO: No history of headaches, syncope, paralysis, seizures or tremors OBJECTIVE BP 100/62 Ht 5' 4 (1.63m) Wt 110 lb (49.9kg) BMI 18.87 kg/(m^2). HEENT: Within normal limits NECK: Supple, no thyromegaly BREASTS: No masses, no nipple discharge HEART: Regular rate and rhythm without murmur, rub, or gallop LUNGS: Clear bilaterally to auscultation ABDOMEN: No masses, non tender, no hernias, no hepatosplenomegaly PELVIC: EGBUS: No lesions, normal appearance VAGINA: No discharge, no blood, no lesions CERVIX: absent UTERUS: Absent ADNEXA: Non tender, no masses RECTOVAGINAL: Neg for heme or mass (FIT) EXTREMITIES: No edema, no calf tenderness NEUROLOGICAL: Grossly intact ASSESSMENT/PLAN: 1. Women's annual routine gynecological examination - ICD9: V72.31, ICD10: Z01.419 (primary diagnosis) - Completed pelvic and breast exam - Completed pap exam - Encouraged monthly BSE - Follow up for annual exam in one year. 2. Encounter for screening for malignant neoplasm of vagina - ICD9: V76.47, ICD10: Z12.72 - PAP/HPV MRNA E6/E7 RFX HPV 16,18/45 3. Breast cancer screening by mammogram - ICD9: V76.12, ICD10: Z12.31 - Completed breast exam - Set up for mammogram, yearly mammogram recommended - Encouraged monthly BSE - Follow up for annual exam in one year. - CHARITO SCREENING W MART 4. Encounter for colorectal cancer screening - ICD9: V76.51, V76.41, ICD10: Z12.11, Z12.12 5. Screening for depression - ICD9: V79.0, ICD10: Z13.31 - DEPRESSION SCREENING 6. Family history of breast cancer - ICD9: V16.3, ICD10: Z80.3 7. Family history of colon cancer - ICD9: V16.0, ICD10: Z80.0 Akilah Balderrama PA-C Return in about 1 year (around 03/11/2025) for Annual Exam. [facility] Discharge instructions* Discharge Instructions* Jak Medellin MD - 02/24/2024 8:01 PM EST The indurated area around the right vulva does not show any evidence of fluctuance or fluid to drain. Please continue to apply warm compresses to the area take the medications as prescribed. At some point the area will be ready for incision and drainage. Please come back to the ER for repeat evaluation or follow-up with your family doctor regarding visit here today. * Attachments The following attachments cannot be sent through Care Everywhere. * Cellulitis (Skin Infection), Adult ED (Dutch) documented in this [facility]10-25-2024 Note Attestation signed by Ashley Jose MD at 01/31/2024 11:44 PM .Teaching Physician Note: I saw and evaluated the patient. I personally obtained the matos and critical portions of the history and physical exam. I reviewed the resident's documentation and discussed the patient with the resident. I agree with the resident's medical decision making as documented in the resident's note. Ashley Jose MD ADMISSION INFORMATION - INPATIENT PSYCHIATRY PATIENT NAME: Lm MONACO is a 48 year old White female DATE OF ADMISSION: 01/28/2024 DATE OF DISCHARGE: 01/31/2024 SERVICE: [facility] ATTENDING NAME: Ashley Dobbs MD RESIDENT RESPONSIBLE FOR DISCHARGE SUMMARY: Patel Ng MD DIAGNOSTIC IMPRESSION: Bipolar I disorder, MRE manic , severe, without psychotic features FINAL DIAGNOSIS: Bipolar I disorder Patient Active Problem List: Bipolar 1 disorder, manic, moderate ([facility]) [F31.12] Vitamin D deficiency [E55.9] Vitamin B12 deficiency [E53.8] Migraine with status migrainosus, not intractable [G43.901] Psychosocial and Contextual Factors: Medication non-adherence REASON FOR ADMISSION: Poor sleep HISTORY OF PRESENT ILLNESS: Per triage: Hasn't slept for a year Per chart review: Office Visit yesterday with Brenda Cleary for Anxiety 09/03/22 ED Visit to [facility] 47 y.o. female presenting with concerns for evaluation of Zoloft and Abilify. Patient states that she is between insurances and does not have a primary care provider to refill her medications. Patient states that she takes 30 mg of Abilify and 150 mg of Zoloft. She has been out of medication since yesterday. She is also complaining of right lower gum pain. She has been seen for this and was treated with antibiotics but has not yet been able to see a dentist. Medical Decision Making I saw and evaluated the patient. I have reviewed the chief complaint, triage note, past medical/surgical, family, and social history. As far as intraorally there is no abscess no evidence of Andrea's. There is a mild defect on the gum tissue. I did print a dental clinic list for the patient as she does need close follow-up for this. I will represcribe her her Zoloft and Abilify. She has appropriate discharge. On my interview: Pt seen at bedside shaking and holding her head. Pt stated she has not felt like her self after stopping her abilify and zoloft back in Mar due to issues getting medications as pt was between insurances. Pt states that she has had issues sleeping ever since April and had been only able to get 3-4 hours on average per night of sleep until four days ago which is when she was not able to fall asleep anymore. Pt states normal amount of sleep for her is 8-10 hours. Pt states she has never had this happen before where she went multiple days without sleep. Pt states she has been engaging in acts that are not like her since June for example increased sexual behavior (she describes herself being more promiscuous). Pt states she has had 10 partners since June which is very unlike her. Pt stated her emotions have been out of whack. Pt endorsing distractibility, racing thoughts, increased goal directed behavior. 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 Pt also states as she can't sleep, she might as well work more. Pt endorses strong social support from family and friends. Pt lives with roommate who is 33 years old which she states is a safe environment. Pt denies alcohol, tobacco and other illicit drug use. Pt denies access to guns. Pt denies SI, HI, AH, VH, or paranoia. Pt denies past suicide attempts. Pt endorses one prior psych hospitalization where her psych provider stopped her on depakote as there was a concern for possible seizure and appeared to have toxicity from depakote. Pt states this happened in 2018. Pt having migraine during interview and thus having difficulty further engaging in interview. Pt expresses strong desire and goal to sleep. Pt would like to be admitted and thus signed voluntary. On the inpatient unit: Ms. MONACO was seen bedside, reports poor sleep for the past year, states she is sleeping for about 2-3 hours, since she stopped taking her medication last March. She stopped because she had been on medication all her life and following up with her appointments was getting too stressful for her, so she decided to stop, during Initial interview, patient was in acute distress due to her having a migraine attack. She was given pain meds. Later in the afternoon, patient reports she has a diagnosis of bipolar, brielle and depression, s (more content not included)...[email or web address] [id number] NoteHospital Medicine Progress Note Lm MONACO Age [age] year old female [id number] 306/2 Admitted 01/28/2024 8:43 PM Hospital Day: 3 Subjective HOSPITAL COURSE: No notes on file INTERVAL HPI: Primary team reach out today pt c/o lesion in her groin area. Assessed pt in her room, she said it is small redness area which usually happened after shave and it goes away itself. She said but last time she shaved 3 days ago. I don't like to take antibiotic, b/c get yeast infection. Patient denies itching or discomfort to the area. Objective PHYSICAL EXAM: BP 104/63 (BP Location: right arm) Pulse 79 Temp 96.2 ???F (35.7 ???C) (Temporal) Resp 18 Ht 5' 4 (1.626 m) Wt 113 lb 1.5 oz (51.3 kg) SpO2 100% BMI 19.41 kg/m??? Alert and oriented x3 Afebrile Respiratory unlabored, lung sound CTA Heart rate normal, regular, +2 pulses B/L LE strength and sensation intake, no edema, erythema note. SKIN: small red bump/papule on an erythematous base on left groin. DATA None to review today Assessment AND Plan Bipolar 1 disorder, manic, moderate (HCC) Per primary team Vitamin D deficiency PO supplement Vitamin B12 deficiency PO supplement Migraine with status migrainosus, not intractable - denies ZAMUDIO today -photophobia resolved; ? migraine, - assessed in ED and given compazine and Benadryl. As per pt it helped over night, but start hurting again in the morning - received dose of Imitrex yesterday - continue PRN Motrin q6h fro ZAMUDIO Left Groin folliculitis - apply warm towels to the area for comfort - reach out medical team if it does not get better in 2-3 days. Keep area clean Ronny Morrow APRN-RENEEMary Rut[facility] HospitalAcc[facility] [id number] NoteBEHAVIORAL HEALTH THERAPEUTIC EVALUATION Completed via combination of chart review, clinical observation, nursing report, and patient interview (as able) Patient Name: Lm MONACO Patient Date of : 1975 Patient Age: [age] year old Admission Date: 01/28/2024 Admission Diagnosis: Bipolar 1 disorder, manic, moderate (HCC) [570234] COVID PROTOCOL? [] YES [x] NO PROTOCOL DC DATE: Precautions: ASSAULT and ESCAPE Past Medical History: Diagnosis Date Bipolar disorder (HCC) History of pulmonary embolism 2006 s/p surgery, s/p coumadin tx x6mo IC (interstitial cystitis) Current Admission Reason: Pt admitted due to anxiety and not sleeping for over a year. On my interview: Per report Pt seen at bedside shaking and holding her head. Pt stated she has not felt like her self after stopping her abilify and zoloft back in Mar due to issues getting medications as pt was between insurances. Pt states that she has had issues sleeping ever since April and had been only able to get 3-4 hours on average per night of sleep until four days ago which is when she was not able to fall asleep anymore. Pt states normal amount of sleep for her is 8-10 hours. Pt states she has never had this happen before where she went multiple days without sleep. Pt states she has been engaging in acts that are not like her since June for example increased sexual behavior (she describes herself being more promiscuous). Pt states she has had 10 partners since June which is very unlike her. Pt stated her emotions have been out of whack. Pt endorsing distractibility, racing thoughts, increased goal directed behavior. 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 Pt also states as she can't sleep, she might as well work more. Pt endorses strong social support from family and friends. Pt lives with roommate who is 33 years old which she states is a safe environment. Chemical Dependency: POSITIVE UTOX? [x] YES [] NO POSITIVE FOR: THC POSITIVE ALCOHOL? [] YES [x] NO CIWA PROTOCOL? [] YES [x] NO OCCUPATIONAL PROFILE CONTEXTS Environment (housing, community supports): [employer] pt lived with a friend Trauma History: unknown Legal History: unknown OCCUPATIONS OCCUPATIONAL FUNCTION STATUS PRIOR TO ADMISSION Educational History: High school/GED, some college Employment History (employment interests and pursuits, place of employment, income source): yes Meaningful Occupations (habits, routines, roles, rituals): poorly established or inconsistent habits/routines - due to mental health decompensation Leisure Exploration and Participation (interests, hobbies, healthy/unhealthy coping habits and strategies): poor coping skills due to mental health decompensation Social Participation/Communication/Interpersonal Skills (supportive individuals - community/family/friends/significant others, balanced relationships) : friends Baseline ADL/IADL: independent with basic self care, assist with finances, shopping, and transportation Assessment information gathered through: chart review and patient interview CURRENT STATUS OF OCCUPATIONAL FUNCTION ADLs (bathing, toileting, dressing, feeding, personal hygiene, grooming): impaired or limited due to mental health decompensation IADLs (care of others/animals/dependents, community mobility, financial services professional, home management, meal prep/cleanup, taoist/spiritual expression, safety/emergency maintenance, shopping): impaired or limited due to mental health decompensation/deficits Functional Motor/Praxis/Sensory Perception: (functional mobility, motor planning, balance, ROM, strength, endurance, sensation, pain, vision, hearing, adaptive equipment, activity modification): intact sensory and motor skills, pt ambulating independently around the unit Health Management (socio-emotional health promotion and maintenance, symptom and condition management, health care links, medication management, physical activity, nutrition management, personal care device management): impaired health management, impaired medication management, impaired symptoms and condition management Rest and Sleep (rest, sleep preparation, sleep participation) : impaired sleep due to mental health decompensation CURRENT BEHAVIORAL HEALTH PRESENTATION Self Reported Current Stressors and Mental Health Symptoms: pt reported 10/10 for anxiety and depression, pt very tearful and labile; stating she hasn't slept well in 2 years Physical Appearance: disheveled Alert AND Oriented x 3 Cognition: perseverative on not sleeping Insight: fair Judgment: fair Attitude / Behavior: restless, superficially cooperative, tearful Affect/Mood/Emotion: labile and tearful Memory: unable to assess Attention: limited sustained attention Speech Clarity,Tone, and Fluency:coherent PATIENT DESIRED OUTCOMES (more content not included)...[email or web address] 01-28-2024 NoteEmergency Provider Consult Note REASON FOR CONSULT: medical clearance REQUESTING PHYSICIAN: Dr. Morales HISTORY OF PRESENT ILLNESS: Lm MONACO is a 48 year old female seen in consultation for medical clearance. The patient is presenting for manic symptoms involuntary admission. When I see the patient and asked her about medical complaint she tells me about a headache. She states that the headache is unilateral, pulsatile in nature, no other significant complaints FOCUSED EXAM: Constitutional: Nursing triage notes reviewed, Vital signs reviewed, Alert, and Awake HENT: No rhinorrhea,and No nasal septal hematoma, mucous membranes moist Eyes: Pupils equal round and reactive to light, Extraocular muscles intact, and No discharge Neck: Supple, No nuchal rigidity, and No stridor Lung: Clear to auscultation, No wheezing, and No rales Cardiac: Regular rate and rhythm, No murmurs, and No rubs Abdomen: Soft, Nontender, and No distension, Soft, and Nondistended : No CVAT Back: No midline bony tenderness to thoracic/lumbar/sacral spines Ext: Full ROM all 4 extremities and Normal peripheral perfusion and pulses Neuro: Alert normally oriented, CN 3-12 intact, and Normal speech Skin: No rash or lesion, Warm, and Dry Psych: Normal affect, Good eye contact, and Cooperative MEDICAL DECISION MAKING: Management Decisions: CT head considered but not performed due to story consistent with migraine and no other concerning symptoms. Independent Test Interpretation: Lab studies reviewed, BNP normal, CK normal, ethanol normal, LFTs normal, CBC normal, UA normal, U tox with THC positive ASSESSMENT AND RECOMMENDATIONS: Patient is a 48-year-old female presenting to emergency department for manic symptoms. Psychiatric team recommending psychiatric inpatient admission. I was consulted for medical clearance. I think this patient is having migraine, I recommended administration of 10 of Compazine p.o., 25-50 milligrams of Benadryl p.o. and re-evaluation. I think this patient is suitable for admission and is medically cleared at this time. The patient has had a focused medical assessment as is appropriate for further evaluation and management by psychiatry. These findings have been relayed to the primary team. [facility] Emergency department Note* Lore Smith MD - 12/20/2023 8:28 AM EDT Sign out note: [place] 48 year old female pmh hysterect (no bso), L adnexal mass pf RLQ pain radiating to LLQ. HDS, anxious. Labs, CT wo acute surgical process. HypoNa, hypoCa, hypoK, hypoMg. Repleted. Pelvic US pending. Rpt BMP pending Under my care: Pelvis US came back negative for an acute process. Patient was reassessed, reports that her symptoms are much better. HDS. Has a UTI, was given Rocephin in ED by prior ED team. Will D/C on abx and return precautions. [id number] Emergency department Note* Lore Smith MD - 12/20/2023 8:28 AM EDT Sign out note: [place] 48 year old female pmh hysterect (no bso), L adnexal mass pf RLQ pain radiating to LLQ. HDS, anxious. Labs, CT wo acute surgical process. HypoNa, hypoCa, hypoK, hypoMg. Repleted. Pelvic US pending. Rpt BMP pending Under my care: Pelvis US came back negative for an acute process. Patient was reassessed, reports that her symptoms are much better. HDS. Has a UTI, was given Rocephin in ED by prior ED team. Will D/C on abx and return precautions. * Mirta Posada EMR - 12/20/2023 4:47 AM EDT notified of critical CALCIUM value of 5.7. Hard copy of results given to . documented in this [id number] Hospital Discharge instructions* Discharge Instructions* Lore Smith MD - 12/20/2023 8:24 AM EDT In case of any worsening symptoms, fever/chills, flank pain, intractable nausea, please present back to ED for reassessment Follow up with PCP * Attachments The following attachments cannot be sent through Care Everywhere. * Urinary tract infection Discharge instructions (Dutch) documented in this [id number] Emergency department Note* Mirta Posada EMR - 12/20/2023 4:47 AM EDT notified of critical CALCIUM value of 5.7. Hard copy of results given to . [id number] Instructions* Patient Instructions* Wendy Heaton PA-C - 10/03/2023 8:39 AM EDT ACUTE BRONCHITIS: You have acute bronchitis. This means the airway passages in your lungs are inflamed. Bronchitis may be caused by viruses or bacteria. Inhaling cigarette smoke will always make it worse. Exposure to irritating chemicals or second hand smoke as well as allergies can contribute to bronchitis. Repeat episodes of bronchitis may cause lifelong lung problems. Acute bronchitis is usually treated with rest, fluids, cough medicine, and possibly antibiotics or inhaled medicine to open up the small airways. It is very important that you avoid smoke and drink increased amounts of fluids. A cool air vaporizer can help thin bronchial secretions. This makes it easier to cough and clear your chest. If you are a cigarette smoker, consider using nicotine gum or skin patches to help you withdraw. Recovery from bronchitis is often slow, but you should start feeling better after 2-3 days of treatment. Please call your doctor or return here if you have any of the following symptoms: Increased fever, chills, or chest pain. Severe shortness of breath or bloody sputum. Do not improve after 3 days of proper treatment.g. Increasing pain, severe headache, or toothache. Nausea, vomiting, or unusual drowsiness. Take steroid pack as prescribed OTC Delsym cough syrup Take antibiotic (Doxycycline) as prescribed. Take with food, please. Probiotic or Yogurt daily recommended. Be sure to drink a full glass of water, and remain upright for at least ~1 hour after each dose. Make sure to finish out the entire prescription even if symptoms resolve. Follow up if no better in 3-5 days To ER if any chest pain, troubles breathing, drooling, troubles swallowing, swelling of your throatespecially one side, neck pain/stiffness, rash, abdominal pain, intractable nausea vomiting or diarrhea, bloody or dark urine stool or vomit, pain or swelling behind ear(s), severe headache, dizziness /lightheadedness, fevers/chills, or worsening of symptoms whatsoever. documented in [facility] NoteHNO ID: [id number] Author: WENDY HEATON PA-C Service: ? Author Type: Physician Corrugator Supervisor Type: Progress Notes Filed: 10/03/2023 08:40 Note Text: This note was created using qunbter. Subjective Lm Monaco is a 48 year old female presents with cough, congestion, sore throat, vomiting, diarrhea. This is day 5. She is taking tylenol, motrin, advil PM. No fever, chest pain, SOB. She is an active smoker. No history of asthma or PNA. She has been around coworkers who have been sick with same. Review of Systems Constitutional: Negative for chills and fever. HENT: Positive for congestion, ear pain and sore throat. Negative for trouble swallowing. Respiratory: Positive for cough. Negative for shortness of breath and wheezing. Cardiovascular: Negative for chest pain. Gastrointestinal: Positive for diarrhea and vomiting. Negative for abdominal pain. Musculoskeletal: Positive for myalgias. Negative for neck pain and neck stiffness. Skin: Negative for rash. Neurological: Positive for headaches. Objective BP 122/83 (BP Site: Right Arm) Pulse 86 Temp 36.6 ?C (97.9 ?F) (Oral) Resp 16 SpO2 100% Physical Exam Vitals and nursing note reviewed. Constitutional: General: She is not in acute distress. Appearance: Normal appearance. She is not toxic-appearing. HENT: Head: Normocephalic and atraumatic. Right Ear: Tympanic membrane normal. Left Ear: Tympanic membrane normal. Nose: Congestion and rhinorrhea present. Mouth/Throat: Mouth: Mucous membranes are moist. Pharynx: No oropharyngeal exudate or posterior oropharyngeal erythema. Eyes: Conjunctiva/sclera: Conjunctivae normal. Cardiovascular: Rate and Rhythm: Normal rate and regular rhythm. Pulmonary: Effort: Pulmonary effort is normal. No respiratory distress. Breath sounds: Wheezing present. Musculoskeletal: Cervical back: Normal range of motion. No rigidity. Skin: Findings: No rash. Neurological: Mental Status: She is alert. Assessment and Plan 1. Bronchitis - ICD9: 490, ICD10: J40 - continue OTC cold medicine - tylenol, motrin for fever, aches - medrol dose pack and doxycycline - smoking cessation given - ER for worsening cough, SOB, CP, high fever, etc - METHYLPREDNISOLONE 4 MG TABLETS IN A DOSE PACK - DOXYCYCLINE MONOHYDRATE 100 MG TABLET [facility]06-27-2024 History of Present illness Narrative* Wendy Heaton PA-C - 10/03/2023 8:34 AM EDT This note was created using [email or web address]. Subjective Lm Monaco is a 48 year old female presents with cough, congestion, sore throat, vomiting, diarrhea. This is day 5. She is taking tylenol, motrin, advil PM. No fever, chest pain, SOB. She is an active smoker. No history of asthma or PNA. She has been around coworkers who have been sick with same. Review of Systems Constitutional: Negative for chills and fever. HENT: Positive for congestion, ear pain and sore throat. Negative for trouble swallowing. Respiratory: Positive for cough. Negative for shortness of breath and wheezing. Cardiovascular: Negative for chest pain. Gastrointestinal: Positive for diarrhea and vomiting. Negative for abdominal pain. Musculoskeletal: Positive for myalgias. Negative for neck pain and neck stiffness. Skin: Negative for rash. Neurological: Positive for headaches. Objective BP 122/83 (BP Site: Right Arm) Pulse 86 Temp 36.6 C (97.9 F) (Oral) Resp 16 SpO2 100% Physical Exam Vitals and nursing note reviewed. Constitutional: General: She is not in acute distress. Appearance: Normal appearance. She is not toxic-appearing. HENT: Head: Normocephalic and atraumatic. Right Ear: Tympanic membrane normal. Left Ear: Tympanic membrane normal. Nose: Congestion and rhinorrhea present. Mouth/Throat: Mouth: Mucous membranes are moist. Pharynx: No oropharyngeal exudate or posterior oropharyngeal erythema. Eyes: Conjunctiva/sclera: Conjunctivae normal. Cardiovascular: Rate and Rhythm: Normal rate and regular rhythm. Pulmonary: Effort: Pulmonary effort is normal. No respiratory distress. Breath sounds: Wheezing present. Musculoskeletal: Cervical back: Normal range of motion. No rigidity. Skin: Findings: No rash. Neurological: Mental Status: She is alert. Assessment and Plan 1. Bronchitis - ICD9: 490, ICD10: J40 - continue OTC cold medicine - tylenol, motrin for fever, aches - medrol dose pack and doxycycline - smoking cessation given - ER for worsening cough, SOB, CP, high fever, etc - METHYLPREDNISOLONE 4 MG TABLETS IN A DOSE PACK - DOXYCYCLINE MONOHYDRATE 100 MG TABLET Wendy Heaton PA-C documented in this encounterWestern [facility]06-[facility]24 NoteHNO ID: [id number] Author: DEVANTE GANDHI, DO Service: ? Author Type: Physician Type: Progress Notes Filed: 09/30/2023 15:21 Note Text: Urgent Care Note History of Present Illness: Lm Monaco is a 48 year old female who presents today for chief complaint: Sore Throat Patient states that she got back from [place] on Saturday. Today she woke up and does not have a voice, sore and scratchy throat. Patient presents with complaint of Sore throat that started this morning. Sore throat is 4/10 in severity, and body. - Associated with: abdominal pain and diarrhea x6 yesterday. Laryngitis. chills, headache, nausea, runny nose, congestion, cough, sneezing. - Has tried: NO medications. - Denies: fever,dizziness, vomiting, ear pain, difficulty breathing, abdominal pain, diarrhea, rash, sick contacts Review of Symptoms: Pertinent positives and negatives noted per HPI otherwise review of systems is negative. Past Medical History: No past medical history on file. No past surgical history on file. Current Outpatient Medications Medication Sig ibuprofen (MOTRIN) 600 mg tablet Take 600 mg by mouth as needed for pain. orphenadrine ER (NORFLEX) 100 mg tablet Take 1 tablet by mouth every 12 hours. amoxicillin (AMOXIL) 500 mg capsule TAKE 1 CAPSULE BY MOUTH THREE TIMES DAILY DIRECTED (Patient not taking: Reported on 07/29/2023) pseudoephedrine (SUDAFED) 30 mg tablet Take 1 tablet by mouth every 4 hours as needed for cold/allergy symptoms (ear pressure). (Patient not taking: Reported on 07/04/2023) azelastine 0.1% nasal spray Use 2 Sprays in each nostril two times a day. (Patient not taking: Reported on 07/04/2023) diclofenac, EC, (VOLTAREN) 75 mg EC tablet Take 1 tablet by mouth two times a day as needed (for pain). (Patient not taking: Reported on 07/04/2023) fluconazole (DIFLUCAN) 150 mg tablet Take one tablet by mouth and you can repeat another dose in 72 hours if symptoms persist (Patient not taking: Reported on 07/29/2023) fluticasone (FLONASE) 50 mcg/actuation nasal spray Use 1 Dennison in each nostril daily at bedtime. (Patient not taking: Reported on 07/04/2023) No current facility-administered medications for this visit. ALLERGIES Allergen Reactions Flagyl [Metronidazo* Anaphylaxis Objective: BP 111/74 Pulse 110 Temp (Src) 98 (Temporal) Resp 22 SpO2 97% GENERAL: Appears nourished AND normally developed for age. EYES: Head exam is unremarkable. No scleral icterus or orbital trauma noted. HEENT: Mucous membranes moist. Nasal turbinates are boggy and erythematous consistent with a URI. Not too much rhinorrhea. LTM normal RTM normal, Throat is erythematous with Bilateral tonsillar enlargement, and exudates. Moderate amount of post nasal drip. Neck is supple without prominent lymphadenopathy. LUNGS: Lungs are clear to auscultation. Some cough reported, but no respiratory distress at this time. CARDIAC: Rhythm is regular. No dysrhythmias or murmurs. EXTREMITIES: Nonedematous, with no obvious deformities. SKIN: Good color. No pallor. Warm/dry. No significant rashes. NEURO: No obvious neurological deficits, moves without evidence of cerebellar infarction. Assessment and Plan: ASSESSMENT/PLAN: 1. Sore throat - ICD9: 462, ICD10: J02.9 (primary diagnosis) - suspect viral - Rapid Strep negative in the office today - STREP A MOLECULAR (POC) - COVID NAAT, UPPER RESPIRATORY, ROUTINE 2. Acute viral pharyngitis - ICD9: 462, ICD10: J02.9 - suspect viral - Rapid Strep negative in the office today - Discussed supportive care treatment with fluids, rest and analgesia. patient offered Decadron in office today for viral pharyngitis. At this time. Condition recommendations below for symptom management. Patient encouraged to follow-up with PCP within 10 to 14 days. Symptom management: Increase fluid intake and REST as much as possible Can try a antihistamine (ie: zytrec-cetirizine, Claritin, or Coretta) for allergy symptoms may be helpful daily for 5 days. Saline nasal spray or nasal steroid spray (ie: Flonase -fluticasone propionate) daily for five days. May use a cool mist or humidifier Steamy baths or showers can be helpful to moisten the airways Can take acetaminophen and/or motrin, as directed, for pain or fever, as directed Mucinex (guafenesin) may help manage mucus Frequent hand-washing with soap and water Can drink warm liquids/broth to soothe throat and thin secretions Parent/Guardian verbalized understanding of plan. PLEASE PROCEED TO NEAREST ED IF DEVELOPING: Any abrupt change in illness or concerning symptoms such as: fever greater than 102F which is not responding to Tylenol or Motrin, difficulty swallowing, shortness of breath, unable to tolerate oral intake due to nausea and vomiting, difficulty breathing, chest pain, seizure, or other concerns report to nearest Emergency Department. Advised to return if no improvement. Follow up wi (more content not included)... [facility]06-24-2024 History of Present illness Narrative* Devante Gandhi, - 09/30/2023 2:47 PM EDT Urgent Care Note History of Present Illness: Lm Monaco is a 48 year old female who presents today for chief complaint: Sore Throat Patient states that she got back from [place] on Saturday. Today she woke up and does not have a voice, sore and scratchy throat. Patient presents with complaint of Sore throat that started this morning. Sore throat is 4/10 in severity, and body. - Associated with: abdominal pain and diarrhea x6 yesterday. Laryngitis. chills, headache, nausea, runny nose, congestion, cough, sneezing. - Has tried: NO medications. - Denies: fever,dizziness, vomiting, ear pain, difficulty breathing, abdominal pain, diarrhea, rash, sick contacts Review of Symptoms: Pertinent positives and negatives noted per HPI otherwise review of systems is negative. Past Medical History: No past medical history on file. No past surgical history on file. Current Outpatient Medications Medication Sig ibuprofen (MOTRIN) 600 mg tablet Take 600 mg by mouth as needed for pain. orphenadrine ER (NORFLEX) 100 mg tablet Take 1 tablet by mouth every 12 hours. amoxicillin (AMOXIL) 500 mg capsule TAKE 1 CAPSULE BY MOUTH THREE TIMES DAILY DIRECTED (Patient not taking: Reported on 07/29/2023) pseudoephedrine (SUDAFED) 30 mg tablet Take 1 tablet by mouth every 4 hours as needed for cold/allergy symptoms (ear pressure). (Patient not taking: Reported on 07/04/2023) azelastine 0.1% nasal spray Use 2 Sprays in each nostril two times a day. (Patient not taking: Reported on 07/04/2023) diclofenac, EC, (VOLTAREN) 75 mg EC tablet Take 1 tablet by mouth two times a day as needed (for pain). (Patient not taking: Reported on 07/04/2023) fluconazole (DIFLUCAN) 150 mg tablet Take one tablet by mouth and you can repeat another dose in 72hours if symptoms persist (Patient not taking: Reported on 07/29/2023) fluticasone (FLONASE) 50 mcg/actuation nasal spray Use 1 Dennison in each nostril daily at bedtime. (Patient not taking: Reported on 07/04/2023) No current facility-administered medications for this visit. ALLERGIES Allergen Reactions Flagyl [Metronidazo* Anaphylaxis Objective: BP 111/74 Pulse 110 Temp (Src) 98 (Temporal) Resp 22 SpO2 97% GENERAL: Appears nourished & normally developed for age. EYES: Head exam is unremarkable. No scleral icterus or orbital trauma noted. HEENT: Mucous membranes moist. Nasal turbinates are boggy and erythematous consistent with a URI. Not too much rhinorrhea. LTM normal RTM normal, Throat is erythematous with Bilateral tonsillar enlargement, and exudates. Moderate amount of post nasal drip. Neck is supple without prominent lymphadenopathy. LUNGS: Lungs are clear to auscultation. Some cough reported, but no respiratory distress at this time. CARDIAC: Rhythm is regular. No dysrhythmias or murmurs. EXTREMITIES: Nonedematous, with no obvious deformities. SKIN: Good color. No pallor. Warm/dry. No significant rashes. NEURO: No obvious neurological deficits, moves without evidence of cerebellar infarction. Assessment and Plan: ASSESSMENT/PLAN: 1. Sore throat - ICD9: 462, ICD10: J02.9 (primary diagnosis) - suspect viral - Rapid Strep negative in the office today - STREP A MOLECULAR (POC) - COVID NAAT, UPPER RESPIRATORY, ROUTINE 2. Acute viral pharyngitis - ICD9: 462, ICD10: J02.9 - suspect viral - Rapid Strep negative in the office today - Discussed supportive care treatment with fluids, rest and analgesia. patient offered Decadron in office today for viral pharyngitis. At this time. Condition recommendations below for symptom management. Patient encouraged to follow-up with PCP within 10 to 14 days. Symptom management: Increase fluid intake and REST as much as possible Can try a antihistamine (ie: zytrec-cetirizine, Claritin, or Coretta) for allergy symptoms may be helpful daily for 5 days. Saline nasal spray or nasal steroid spray (ie: Flonase -fluticasone propionate) daily for five days. May use a cool mist or humidifier Steamy baths or showers can be helpful to moisten the airways Can take acetaminophen and/or motrin, as directed, for pain or fever, as directed Mucinex (guafenesin) may help manage mucus Frequent hand-washing with soap and water Can drink warm liquids/broth to soothe throat and thin secretions Parent/Guardian verbalized understanding of plan. PLEASE PROCEED TO NEAREST ED IF DEVELOPING: Any abrupt change in illness or concerning symptoms such as: fever greater than 102F which is not responding to Tylenol or Motrin, difficulty swallowing, shortness of breath, unable to tolerate oral intake due to nausea and vomiting, difficulty breathing, chest pain, seizure, or other concerns report to nearest Emergency Department. Advised to return if no improvement. Follow up with No primary care provider on file.. Discussed risks, benefits, alternatives, and potential side effects of medications. See patient instructions. Devante Gandhi DO documented [facility] Nurse Note* Roma James MA - 09/30/2023 2:36 PM EDT Patient states that she got back from [place] on Saturday. She states yesterday she had some abd pain and diarrhea. Today she woke up and does not have a voice, sore and scratchy throat. NO fevers. NO medications. [facility] Note* Roma James MA - 09/30/2023 2:36 PM EDT Patient states that she got back from [place] on Saturday. She states yesterday she had some abd pain and diarrhea. Today she woke up and does not have a voice, sore and scratchy throat. NO fevers. NO medications. documented in this [facility]Western [facility] Telephone encounter Note * Telephone Encounter - Mere Castro RN - 08/21/2023 9:19 AM EDT Embue message sent to patient informing her of Dr. Marques's message. [facility] Miscellaneous Notes* Telephone Encounter - Mere Castro RN - 08/21/2023 9:19 AM EDT MyChart message sent to patient informing her of Dr. Marques's message. * Telephone Encounter - Kingsley Marques MD - 08/20/2023 5:28 PM EDT Please have her send the radiology report as well for our records to confirm findings I see she has mild arthritis (age related wear and tear of the joints) which is not unusual and there is mild degree of scoliosis. An MRI would be better to assess the spaces where the nerves exit, but if she can send the report I can confirm any findings related to nerve impingement as well. If symptoms persist despite 6 weeks of PT, an MRI would be the next step Thank you * Telephone Encounter - Mere Castro RN - 08/20/2023 8:39 AM EDT Forwarded to provider for review. TOBIAS: 07/29/2023 Future OV: 10/02/2023 CT Lumbar: 06/21/2023 and 07/02/2023 documented in this encounterWestern [facility]05-14-[facility] Telephone encounter Note * Telephone Encounter - Kingsley Marques MD - 08/20/2023 5:28 PM EDT Please have her send the radiology report as well for our records to confirm findings I see she has mild arthritis (age related wear and tear of the joints) which is not unusual and there is mild degree of scoliosis. An MRI would be better to assess the spaces where the nerves exit, but if she can send the report I can confirm any findings related to nerve impingement as well. If symptoms persist despite 6 weeks of PT, an MRI would be the next step Thank you [facility] Work Phone: [phone] Telephone encounter Note* Telephone Encounter - Mere Castro RN - 08/20/2023 8:39 AM EDT Forwarded to provider for review. TOBIAS: 07/29/2023 Future OV: 10/02/2023 CT Lumbar: 06/21/2023 and 07/02/2023 [facility] NoteHNO ID: [id number] Author: KINGSLEY MARQUES MD Service: ? Author Type: Physician Type: Progress Notes Filed: 07/29/2023 13:22 Note Text: Spine Care Path Radicular Leg Pain - Acute (0 - 6 weeks) Initial Exam SUBJECTIVE HISTORY OF PRESENT ILLNESS: Lm Monaco is a 48 year old female with PMH of interstitial cystitis who presents with a chief complaint of leg pain and is seen in consultation requested by Wendy Heaton PA-C for an opinion regarding this. My final recommendations will be communicated back to the requesting physician by way of shared medical record or letter via US mail. Patient presents today for evaluation of left leg pain, posterior aspect of her thigh this has been present for about a month Pain is around 3-4 out of 10 Pain is pulsating and jabbing Can't stand for too long in one place when pain comes on Was in the urgent care 07/04/2023 due to the symptoms Prior Therapy: Flexeril Prednisone - helped but made her feel jittery Ibuprofen - helps Had spine surgery in 2005, states she crushed L3 and L4 from sledding accident Litigation: No Workers' Compensation: No YELLOW AND BLUE FLAGS No-Neg Attitude; Back Pain is Disabling No-Avoiding Activity (for Fear of Pain) No-Depression or Anxiety Disorders No-Social Problems No-Substance Use Disorder No-Job Dissatisfaction No-Financial Disincentives Patient Entered Questionnaires 07/28/2023 Spine Questions Pain Location: Lower back Pain Duration: Less than 1 month Symptoms from neck/cervical spine: No Employment Status: Working now Involved in law suit/legal claim: No 07/28/2023 Spine Red Flags Any type of cancer: No Unexplained fever: No Bowel or bladder disfunction: No Unintentional weight loss: No Osteoporosis: No PROMIS Score Percentiles 07/28/2023 Physical Health Physical Function Percentile 16* Sleep Percentile 10 Fatigue Percentile 21* Pain Interference Percentile 12 07/28/2023 PROMIS SOCIAL ROLE SCORE Social Role Satisfaction Percentile 58 07/28/2023 PROMIS Global Health Scale Physical Health Percentile 31 Mental Health Percentile 73 Percentiles provide an indication of how the patient's score ranks in relation to the general population. Higher percentile rankings indicate better function/quality of life. 50th percentile is the average of the general population and indicates half of respondents had a worse score. Depression Screenin07/28/2023 PHQ-9 Score 1 07/28/2023 PHQ-9 Self-harm Question Question 9 Not at all PHQ-9 Self-Harm (Item 9) response options: 0 Not at all 1 Several days 2 More than half the days 3 Nearly every day PHQ-9 Levels: 0-4 No - mild depression 5-9 Mild depression 10-14 Moderate depression 15-19 Moderately severe depression 20-27 Severe depression There is no problem list on file for this patient. No past medical history on file. No past surgical history on file. Social History Tobacco Use Smoking status: Every Day Types: Cigarettes Passive exposure: Current Smokeless tobacco: Never Vaping Use Vaping Use: Never used No family history on file. ALLERGIES Allergen Reactions Flagyl [Metronidazo* Anaphylaxis CURRENT MEDICATIONS: ibuprofen (MOTRIN) 600 mg tablet Take 600 mg by mouth as needed for pain. orphenadrine ER (NORFLEX) 100 mg tablet Take 1 tablet by mouth every 12 hours. amoxicillin (AMOXIL) 500 mg capsule TAKE 1 CAPSULE BY MOUTH THREE TIMES DAILY DIRECTED (Patient not taking: Reported on 07/29/2023) pseudoephedrine (SUDAFED) 30 mg tablet Take 1 tablet by mouth every 4 hours as needed for cold/allergy symptoms (ear pressure). (Patient not taking: Reported on 07/04/2023) azelastine 0.1% nasal spray Use 2 Sprays in each nostril two times a day. (Patient not taking: Reported on 07/04/2023) diclofenac, EC, (VOLTAREN) 75 mg EC tablet Take 1 tablet by mouth two times a day as needed (for pain). (Patient not taking: Reported on 07/04/2023) fluconazole (DIFLUCAN) 150 mg tablet Take one tablet by mouth and you can repeat another dose in 72 hours if symptoms persist (Patient not taking: Reported on 07/29/2023) fluticasone (FLONASE) 50 mcg/actuation nasal spray Use 1 Dennison in each nostril daily at bedtime. (Patient not taking: Reported on 07/04/2023) REVIEW OF SYSTEMS: As listed in HPI OBJECTIVE: PHYSICAL EXAM BP 115/74 (BP Site: Right Arm, BP Position: Sitting) Pulse 87 Temp 37.1 ?C (98.7 ?F) (Temporal) Ht 164.8 cm (5' 4.88) Wt 51.5 kg (113 lb 10.4 oz) BMI 18.98 kg/m? GENERAL APPEARANCE: Well appearing, well-hydrated, well nourished and alert HEART: Edema: No LUNGS: even and non-labored breathing, normal chest excursion LYMPHATICS: No lymphadema NEURO/PSYCH: oriented to time, place, and person, speech normal, mental status intact GAIT: normal MUSCULOSKELETAL: Leg Exam RIGHT LEFT Leg Raise Straight Leg Raise Negative Negative Contralateral Straigh (more content not included)...[facility] 07-29-2023 History of Present illness Narrative* Kingsley Marques MD - 07/29/2023 12:50 PM EDT Spine Care Path Radicular Leg Pain - Acute (0 - 6 weeks) Initial Exam SUBJECTIVE HISTORY OF PRESENT ILLNESS: Lm Monaco is a 48 year old female with PMH of interstitial cystitis who presents with a chief complaint of leg pain and is seen in consultation requested by Wendy Heaton PA-C for an opinion regarding this. My final recommendations will be communicated back to the requesting physician by way of shared medical record or letter via US mail. Patient presents today for evaluation of left leg pain, posterior aspect of her thigh this has been present for about a month Pain is around 3-4 out of 10 Pain is pulsating and jabbing Can't stand for too long in one place when pain comes on Was in the urgent care 07/04/2023 due to the symptoms Prior Therapy: Flexeril Prednisone - helped but made her feel jittery Ibuprofen - helps Had spine surgery in 2005, states she crushed L3 and L4 from sledding accident Litigation: No Workers' Compensation: No YELLOW & BLUE FLAGS No-Neg Attitude; Back Pain is Disabling No-Avoiding Activity (for Fear of Pain) No-Depression or Anxiety Disorders No-Social Problems No-Substance Use Disorder No-Job Dissatisfaction No-Financial Disincentives Patient Entered Questionnaires 07/28/2023 Spine Questions Pain Location: Lower back Pain Duration: Less than 1 month Symptoms from neck/cervical spine: No Employment Status: Working now Involved in law suit/legal claim: No 07/28/2023 Spine Red Flags Any type of cancer: No Unexplained fever: No Bowel or bladder disfunction: No Unintentional weight loss: No Osteoporosis: No PROMIS Score Percentiles 07/28/2023 Physical Health Physical Function Percentile 16* Sleep Percentile 10 Fatigue Percentile 21* Pain Interference Percentile 12 07/28/2023 PROMIS SOCIAL ROLE SCORE Social Role Satisfaction Percentile 58 07/28/2023 PROMIS Global Health Scale Physical Health Percentile 31 Mental Health Percentile 73 Percentiles provide an indication of how the patient's score ranks in relation to the general population. Higher percentile rankings indicate better function/quality of life. 50th percentile is the average of the general population and indicates half of respondents had a worse score. Depression Screenin07/28/2023 PHQ-9 Score 1 07/28/2023 PHQ-9 Self-harm Question Question 9 Not at all PHQ-9 Self-Harm (Item 9) response options: 0 Not at all 1 Several days 2 More than half the days 3 Nearly every day PHQ-9 Levels: 0-4 No - mild depression 5-9 Mild depression 10-14 Moderate depression 15-19 Moderately severe depression 20-27 Severe depression There is no problem list on file for this patient. No past medical history on file. No past surgical history on file. Social History Tobacco Use Smoking status: Every Day Types: Cigarettes Passive exposure: Current Smokeless tobacco: Never Vaping Use Vaping Use: Never used No family history on file. ALLERGIES Allergen Reactions Flagyl [Metronidazo* Anaphylaxis CURRENT MEDICATIONS: ibuprofen (MOTRIN) 600 mg tablet Take 600 mg by mouth as needed for pain. orphenadrine ER (NORFLEX) 100 mg tablet Take 1 tablet by mouth every 12 hours. amoxicillin (AMOXIL) 500 mg capsule TAKE 1 CAPSULE BY MOUTH THREE TIMES DAILY DIRECTED (Patient not taking: Reported on 07/29/2023) pseudoephedrine (SUDAFED) 30 mg tablet Take 1 tablet by mouth every 4 hours as needed for cold/allergy symptoms (ear pressure). (Patient not taking: Reported on 07/04/2023) azelastine 0.1% nasal spray Use 2 Sprays in each nostril two times a day. (Patient not taking: Reported on 07/04/2023) diclofenac, EC, (VOLTAREN) 75 mg EC tablet Take 1 tablet by mouth two times a day as needed (for pain). (Patient not taking: Reported on 07/04/2023) fluconazole (DIFLUCAN) 150 mg tablet Take one tablet by mouth and you can repeat another dose in 72hours if symptoms persist (Patient not taking: Reported on 07/29/2023) fluticasone (FLONASE) 50 mcg/actuation nasal spray Use 1 Dennison in each nostril daily at bedtime. (Patient not taking: Reported on 07/04/2023) REVIEW OF SYSTEMS: As listed in HPI OBJECTIVE: PHYSICAL EXAM BP 115/74 (BP Site: Right Arm, BP Position: Sitting) Pulse 87 Temp 37.1 C (98.7 F) (Temporal) Ht 164.8 cm (5' 4.88) Wt 51.5 kg (113 lb 10.4 oz) BMI 18.98 kg/m GENERAL APPEARANCE: Well appearing, well-hydrated, well nourished and alert HEART: Edema: No LUNGS: even and non-labored breathing, normal chest excursion LYMPHATICS: No lymphadema NEURO/PSYCH: oriented to time, place, and person, speech normal, mental status intact GAIT: normal MUSCULOSKELETAL: Leg Exam RIGHT LEFT Leg Raise Straight Leg Raise Negative Negative Contralateral Straight Leg Raise Negative Negative DTRs Knee Hypo-reflexive Normal Ankle Normal Normal Medial Hamstring Hypo-reflexive Hypo-reflexive Babinski normal normal Strength of Lower Extremities Extensor Hallux Longus 5/5 5/5 Ankle Dorsiflexion 5/5 5/5 Ankle Plantarflexion 5/5 5/5 Knee Extension 5/5 5/5 Jarek's Exam: Deferred Upper Body Reflex Exam RIGHT LEFT Reflex Status Reflex Status Solis's Sign absent absent Upper Extremity Strength RIGHT LEFT Strength (MMT) Strength (MMT) Shoulder Abduction 5/5 5/5 Biceps 5/5 5/5 Triceps 5/5 5/5 Resisted Suppination 5/5 5/5 Wrist Extension 5/5 5/5 Interossei 5/5 5/5 NEUROSENSORY: Soft touch; Within Normal Limits ASSESSMENT/PLAN Chronic left-sided low back pain with left-sided sciatica (primary encounter diagnosis) Patient presents today with acute left leg pain in the posterolateral distribution that start 1 month ago without inciting event or trauma. She is neurologically intact on today's examination with nored flag signs. PLAN: 1) Imaging Studies: will order XR lumbar spine Patient will request CT lumbar spine [facility] that was done 07/19/23 she states she will request these records for our review 2) Therapy/Rehabilitation: Script provided for physical therapy for stretching, core strengthening,ROM, modalities as needed, and to teach home exercise program 3) Pharmacological Management: she may continue with OTC NSAIDs as needed as this has been providing her with some relief 4) Spine/Surgical Interventions: none 5) Consultations: none 6) Follow -up: 2 months 7) Future treatment considerations: MRI lumbar spine if no improvement in symptoms Imaging Ordered: XR lumbar spine Kingsley Marques MD Medical Decision Making: Problems: Low: Acute, uncomplicated illness or injury Data: Unique source(s) for external note(s) reviewed: 2 Unique test(s) ordered: 1 Risk: Low: Low risk from testing/treatment Medical Decision Making Level: 3 - Low SIGNATURE: Kingsley Marques MD PATIENT NAME: Lm Monaco DATE: July 29, 2023 TIME: 12:50 PM [facility]ED Nursing Discharge Summary Entered On: 07/19/2023 14:08 EDT Performed On: 07/19/2023 14:07 EDT by Mary Caputo RN OR Information [id number] ED IV's : Continue upon transfer ED IV Site Assessment : Yes, Completed in IView ED Vitals Completed : Yes ED Final Assessment Completed : Yes ED Progress Note Completed : Yes Complete all PRN/Pain response forms? : Yes ED Disassociate Patient from Monitor : N/A Updated Depart Time : Yes ED Belongings sent w patient [id number] : Yes Valuables Complete : Not applicable Mary Caputo RN - 07/19/2023 14:07 EDT Education Instructions given to : Patient TeachBack Methodology : TeachBack, Explanation Barriers to Learning : None evident Mary Caputo RN - 07/19/2023 14:07 EDT ED Assistance Summary Assistance Given? : No Mary Caputo RN - 07/19/2023 14:07 EDT [facility]03-28-2024 NoteHNO ID: [id number] Author: WENDY HEATNO PA-C Service: ? Author Type: Physician Corrugator Supervisor Type: Progress Notes Filed: 07/04/2023 09:57 Note Text: This note was created using qunbter. Subjective Lm Monaco is a 48 year old female who presents with low back pain. This has been about a week. She had surgery in 2005 to her back and has flares intermittently. No new fall or trauma but admits to having frequent intercourse. The pain starts in the left low back and radiates down her leg. No red flag symptoms such as numbness,weakness, incontinence, fever. She is currently on a muscle relaxer and ibuprofen which does not help much. She is requesting a work excuse. Review of Systems Constitutional: Negative for chills and fever. Gastrointestinal: Negative for abdominal pain, diarrhea, nausea and vomiting. Genitourinary: Negative for decreased urine volume and difficulty urinating. Musculoskeletal: Positive for back pain. Back pain radiating down left leg Skin: Negative for rash. Neurological: Negative for weakness, light-headedness, numbness and headaches. Objective BP 110/65 (BP Site: Right Arm, BP Position: Sitting, BP Cuff Size: Regular Adult) Pulse 67 Temp 36.5 ?C (97.7 ?F) (Temporal) Resp 16 Wt 53.5 kg (118 lb) BMI 19.85 kg/m? Physical Exam Vitals and nursing note reviewed. Constitutional: General: She is in acute distress (mildly from pain). Appearance: Normal appearance. She is not toxic-appearing. HENT: Head: Normocephalic and atraumatic. Nose: Nose normal. Mouth/Throat: Mouth: Mucous membranes are moist. Cardiovascular: Rate and Rhythm: Normal rate and regular rhythm. Pulmonary: Effort: Pulmonary effort is normal. No respiratory distress. Breath sounds: No wheezing. Abdominal: Palpations: Abdomen is soft. Tenderness: There is no abdominal tenderness. There is no guarding. Musculoskeletal: Cervical back: Normal range of motion. No rigidity. Comments: Patient with tenderness to left paraspinal lumbar muscles, SI region radiating down left leg. No midline tenderness. No pain in her knee, hip or ankle. Able to change positions and ambulate however slowly from pain. Sensation intact. No sign of saddle anesthesia. Pedal pulses intact Skin: Findings: No erythema or rash. Neurological: Mental Status: She is alert. Assessment and Plan 1. Chronic left-sided low back pain with left-sided sciatica - ICD9: 724.2, 724.3, 338.29, ICD10: M54.42, G89.29 - continue motrin and muscle relaxer as previously prescribed - medrol dose pack Rx - ice ad heat alternating - gentle stretching and massage and waling - follow with Spine - work excuse given - ER precautions given and discussed - [facility] - METHYLPREDNISOLONE 4 MG TABLETS IN A DOSE PACK [facility]03-26-2024 NoteED Nursing Discharge Summary Entered On: 07/02/2023 14:00 EDT Performed On: 07/02/2023 13:54 EDT by Cinthia Hilario RN OR Information [id number] ED IV's : No IV ED IV Site Assessment : No IV ED Vitals Completed : Yes ED Final Assessment Completed : Yes ED Progress Note Completed : Yes Complete all PRN/Pain response forms? : Yes ED Disassociate Patient from Monitor : Yes Updated Depart Time : Yes Mode of Discharge : Ambulatory Discharge Transportation : Private vehicle ED Belongings sent w patient [id number] : Yes Valuables Complete : Not applicable Cinthia Hilario RN - 07/02/2023 13:59 EDT Education Instructions given to : Patient TeachBack Methodology : Explanation, Printed Material Barriers to Learning : None evident Cinthia Hilario RN - 07/02/2023 13:59 EDT Post-Hospital Education Adult Grid Diagnostic Results : Verbalizes understanding Disease Process : Verbalizes understanding Importance of Follow-Up Visits : Verbalizes understanding Plan of Care : Verbalizes understanding When to Call Health Care Provider : Verbalizes understanding Cinthia Hilario RN - 07/02/2023 13:59 EDT Medication Education Adult Grid Med Dosage, Route, Scheduling : Verbalizes understanding Med Generic/Brand Name, Purpose, Action : Verbalizes understanding Cinthia Hilario RN - 07/02/2023 13:59 EDT ED Assistance Summary Assistance Given? : No Cinthia Hilario RN - 07/02/2023 13:59 EDT [facility]03-15-2024 NoteED Nursing Discharge Summary Entered On: 06/21/2023 14:18 EDT Performed On: 06/21/2023 14:15 EDT by Keith Fairbanks RN OR Information [id number] ED IV's : No IV ED IV Site Assessment : No IV ED Vitals Completed : Yes ED Final Assessment Completed : Yes ED Progress Note Completed : Yes Complete all PRN/Pain response forms? : Yes ED Disassociate Patient from Monitor : N/A Updated Depart Time : Yes ED Belongings sent w patient [id number] : Not applicable Keith Fairbanks RN - 06/21/2023 14:17 EDT Education Instructions given to : Patient TeachBack Methodology : Explanation, Printed Material Barriers to Learning : None evident Keith Fairbanks RN - 06/21/2023 14:17 EDT Post-Hospital Education Adult Grid Disease Process : Verbalizes understanding Importance of Follow-Up Visits : Verbalizes understanding Pain Management : Verbalizes understanding Plan of Care : Verbalizes understanding When to Call Health Care Provider : Verbalizes understanding Keith Fairbanks RN - 06/21/2023 14:17 EDT ED Assistance Summary Assistance Given? : No Keith Fairbanks RN - 06/21/2023 14:17 EDT [facility]24 NoteHNO ID: [id number] Author: JEREMY WILLARD MD, PhD Service: ? Author Type: Physician Type: Progress Notes Filed: 06/16/2023 12:34 Note Text: [facility] [place] Patient Name: Lm Monaco Today's Date: June 16, 2023 HPI: Lm Monaco is an 48 year old female who presents for: Ear Problem Left ear pain No drainage Diagnosed with acute otitis media on 05/29/2023, prescribed amoxicillin and Flonase Was then again seen in urgent care on 06/07/2023. Prescribed Augmentin for recurrent acute otitis media/unresolved. Reports ear pain started in the end of April, delayed coming in to see provider to see if it would go away on its own Also having some jaw pain Using previously prescribed Flonase and Aleve, minimal relief No sinus pressure or tenderness No nasal congestion or runny nose No sore throat No cough No difficulty breathing REVIEW OF SYSTEMS Denies fever, chills, night sweats, headache, change in vision, chest pain, heart palpitations, shortness of breath/difficulty breathing, cough, nausea, vomiting, diarrhea, constipation, abdominal pain, urinary symptoms, rash/lesions. PHYSICAL EXAM BP 97/57 Pulse 62 Temp 36.8 ?C (98.2 ?F) (Temporal) Resp 20 SpO2 99% Gen: Patient is pleasant, alert, and in no acute distress Head: Normocephalic, atraumatic Eyes: Sclera anicteric ENT: No nasal discharge, no pharyngeal erythema or exudate. Bilateral ears: External ear canal with no signs of infection or inflammation. Bilateral TMs retracted with no evidence of infection, inflammation, or effusion. No mastoid tenderness. Neck: Supple, no lymphadenopathy CV: Regular rate and rhythm Pulm: Clear to auscultation bilaterally, no wheezes, crackles, or rhonchi Neuro: No involuntary movements. Extrem: No cyanosis, clubbing, or edema Skin: Warm, dry, no visible rashes ASSESSMENT AND PLAN 1. Eustachian tube disorder, left - Currently no red flags. -Highly suspect effusion/dysfunction secondary to recent acute otitis media. No signs of infection or inflammation at this time. Patient reports sleeping sensitive to stimulants so prescribed lower dose/immediate release dose pseudoephedrine. Continue previously prescribed Flonase. Discussed proper administration. Patient already with ENT visit in July. Encourage patient to keep appointment. - Discussed conservative measures for symptom relief and treatment, including use of OTC medications. - pseudoephedrine (SUDAFED) 30 mg tablet; Take 1 tablet by mouth every 4 hours as needed for cold/allergy symptoms (ear pressure). Dispense: 30 tablet; Refill: 0 - azelastine 0.1% nasal spray; Use 2 Sprays in each nostril two times a day. Dispense: 30 mL; Refill: 0 - diclofenac, EC, (VOLTAREN) 75 mg EC tablet; Take 1 tablet by mouth two times a day as needed (for pain). Dispense: 14 tablet; Refill: 0 Do not combine diclofenac oral tablets with any other NSAIDs. -Discussed red flags and precautions for immediate medical attention. Patient verbalized understanding and is agreeable to the plan. Jeremy Willard MD, PhD Family Medicine / Urgent Care June 16, 2023 Medical Decision Making: Problems: Moderate: New problem with uncertain prognosis Risk: Moderate: Drug management Medical Decision Making Level: 4 - Moderate This note was partially generated using Xiaohongshu voice recognition system, and there may be some incorrect words, spellings, and punctuation that were not noted in checking the note before saving.[facility]03-[facility] History of Present illness Narrative* Jeremy Willard MD, PhD - 06/16/2023 12:07 PM EDT [facility] [place] Patient Name: Lm Monaco Today's Date: June 16, 2023 HPI: Lm Monaco is an 48 year old female who presents for: Ear Problem Left ear pain No drainage Diagnosed with acute otitis media on 05/29/2023, prescribed amoxicillin and Flonase Was then again seen in urgent care on 06/07/2023. Prescribed Augmentin for recurrent acute otitis media/unresolved. Reports ear pain started in the end of April, delayed coming in to see provider to see if it would go away on its own Also having some jaw pain Using previously prescribed Flonase and Aleve, minimal relief No sinus pressure or tenderness No nasal congestion or runny nose No sore throat No cough No difficulty breathing REVIEW OF SYSTEMS Denies fever, chills, night sweats, headache, change in vision, chest pain, heart palpitations, shortness of breath/difficulty breathing, cough, nausea, vomiting, diarrhea, constipation, abdominal pain, urinary symptoms, rash/lesions. PHYSICAL EXAM BP 97/57 Pulse 62 Temp 36.8 C (98.2 F) (Temporal) Resp 20 SpO2 99% Gen: Patient is pleasant, alert, and in no acute distress Head: Normocephalic, atraumatic Eyes: Sclera anicteric ENT: No nasal discharge, no pharyngeal erythema or exudate. Bilateral ears: External ear canal withno signs of infection or inflammation. Bilateral TMs retracted with no evidence of infection, inflammation, or effusion. No mastoid tenderness. Neck: Supple, no lymphadenopathy CV: Regular rate and rhythm Pulm: Clear to auscultation bilaterally, no wheezes, crackles, or rhonchi Neuro: No involuntary movements. Extrem: No cyanosis, clubbing, or edema Skin: Warm, dry, no visible rashes ASSESSMENT & PLAN 1. Eustachian tube disorder, left - Currently no red flags. -Highly suspect effusion/dysfunction secondary to recent acute otitis media. No signs of infection or inflammation at this time. Patient reports sleeping sensitive to stimulants so prescribed lower dose/immediate release dose pseudoephedrine. Continue previously prescribed Flonase. Discussed proper administration. Patient already with ENT visit in July. Encourage patient to keep appointment. - Discussed conservative measures for symptom relief and treatment, including use of OTC medications. - pseudoephedrine (SUDAFED) 30 mg tablet; Take 1 tablet by mouth every 4 hours as needed for cold/allergy symptoms (ear pressure). Dispense: 30 tablet; Refill: 0 - azelastine 0.1% nasal spray; Use 2 Sprays in each nostril two times a day. Dispense: 30 mL; Refill: 0 - diclofenac, EC, (VOLTAREN) 75 mg EC tablet; Take 1 tablet by mouth two times a day as needed (forpain). Dispense: 14 tablet; Refill: 0 Do not combine diclofenac oral tablets with any other NSAIDs. -Discussed red flags and precautions for immediate medical attention. Patient verbalized understanding and is agreeable to the plan. Jeremy Willard MD, PhD Family Medicine / Urgent Care June 16, 2023 Medical Decision Making: Problems: Moderate: New problem with uncertain prognosis Risk: Moderate: Drug management Medical Decision Making Level: 4 - Moderate This note was partially generated using Xiaohongshu voice recognition system, and there may be some incorrect words, spellings, and punctuation that were not noted in checking the note before saving. [facility] Nurse Note* Roma James MA - 06/16/2023 11:53 AM EDT Patient states that she finished antibiotics yesterday for an ear infection and she states that shedoes not feel any better. Patient states that she has been in a lot of pain especially at night andshe is unable to sleep. She is taking Ibuprofen and flonase. [facility]24 NoteHNO ID: [id number] Author: MORIAH MALIN MD Service: ? Author Type: Physician Type: Progress Notes Filed: 06/07/2023 13:07 Note Text: Urgent Care Note History of Present Illness: Lm Monaco is a 48 year old female who presents today for chief complaint: Ear Pain (Left ear along with jaw pain still is not feeling any better since visit on 05/29/23) - Started: about 10 days ago - Located: left ear - Described as: left ear pain that intermittently radiates to left jaw - Notes she does have hx of grinding her teeth and TMJ o - Was seen for similar symptoms a week ago and diagnosed with left otitis media and started don 7 day course Amoxicillin and advised to start flonase - Has tried: amoxicillin - Denies: fever, chills, headache, dizziness, nausea, vomiting, sore throat, qtips usage, drainage from ear, bleeding from ear, ear trauma, recent swimming, recent flights, runny nose, wheezing, cough, shortness of breath, chest pain, palpitations, abdominal pain, diarrhea, constipation, rash, numbness/tingling, sick contacts Review of Symptoms: Pertinent positives and negatives noted per HPI otherwise review of systems is negative. Past Medical History: No past medical history on file. No past surgical history on file. Current Outpatient Medications Medication Sig fluticasone (FLONASE) 50 mcg/actuation nasal spray Use 1 Dennison in each nostril daily at bedtime. (Patient not taking: Reported on 06/07/2023) ARIPiprazole (ABILIFY) 30 mg tablet TAKE 1 TABLET BY MOUTH ONCE DAILY IN THE MORNING (Patient not taking: Reported on 04/09/2023) sertraline (ZOLOFT) 100 mg tablet Take 150 mg by mouth as directed. (Patient not taking: Reported on 04/09/2023) No current facility-administered medications for this visit. ALLERGIES Allergen Reactions Flagyl [Metronidazo* Anaphylaxis Objective: BP 95/60 Pulse 87 Temp (Src) 98.7 (Temporal) Resp 14 Wt 118 lb (53.5kg) Physical Exam: General: no acute distress, well groomed HEENT: normocephalic, atraumatic. Nonicteral sclera, extraocular motions intact bilaterally. Bilateral tragus without any tenderness to palpation. Bilateral ear canals without any erythema or cerumen impaction. Left TM erythematous and bulging. Right TM visualized and intact. Nose without active drainage. Oropharynx without lesions, moist mucous membranes. Tenderness to palpation of left TMJ. Full ROM of jaw Neck: no palpable lymphadenopathy Cardiovascular: normal peripheral perfusion, regular rate and rhythm Lungs: Non-labored breathing, clear to auscultation bilaterally. No wheezing, rales, or rhonchi Skin: No lesions appreciated on exposed surfaces Psych: Cooperative, answers questions appropriately Assessment and Plan: (H66.002) Acute suppurative otitis media of left ear without spontaneous rupture of tympanic membrane, recurrence not specified (primary encounter diagnosis) (M26.622) TMJ tenderness, left Comment: Patient with hx of teeth grinding and TMJ with recent left otitis media s/p 7 day course amoxicillin presents with 10 day hx of left otalgia and intermittent left TMJ pain, found to have exam for continued left otitis media with left sided TMJ. Discussed etiology of diagnosis with patient. Rx Augmentin ordered to be started today. Advised to start ibuprofen/acetaminophen prn jaw pain or left ear pain and advised to avoid hard or crunchy foods. Discussed risks, benefits, alternatives, and potential side effects of medications. Referral to ENT Department was placed for close follow up. Advised to follow up with PCP if symptoms continue or worsen and advised to go to ED if uncontrolled fever, worsening jaw pain, numbness/tingling, chest pain, shortness of breath, inability to tolerate oral intake, or new concerning symptoms begins. Patient expressed understanding. Plan: amoxicillin-clavulanate potassium (AUGMENTIN) 875-125 mg per tablet, fluconazole (DIFLUCAN) 150 mg tablet, CONSULT TO ENT Moriah Malin [facility]03-01-2024 History of Present illness Narrative* Moriah Malin MD - 06/07/2023 12:50 PM EST Urgent Care Note History of Present Illness: Lm Monaco is a 48 year old female who presents today for chief complaint: Ear Pain (Left ear along with jaw pain still is not feeling any better since visit on 05/29/23) - Started: about 10 days ago - Located: left ear - Described as: left ear pain that intermittently radiates to left jaw - Notes she does have hx of grinding her teeth and TMJ o - Was seen for similar symptoms a week ago and diagnosed with left otitis media and started don 7 day course Amoxicillin and advised to start flonase - Has tried: amoxicillin - Denies: fever, chills, headache, dizziness, nausea, vomiting, sore throat, qtips usage, drainage from ear, bleeding from ear, ear trauma, recent swimming, recent flights, runny nose, wheezing, cough, shortness of breath, chest pain, palpitations, abdominal pain, diarrhea, constipation, rash, numbness/tingling, sick contacts Review of Symptoms: Pertinent positives and negatives noted per HPI otherwise review of systems is negative. Past Medical History: No past medical history on file. No past surgical history on file. Current Outpatient Medications Medication Sig fluticasone (FLONASE) 50 mcg/actuation nasal spray Use 1 Dennison in each nostril daily at bedtime. (Patient not taking: Reported on 06/07/2023) ARIPiprazole (ABILIFY) 30 mg tablet TAKE 1 TABLET BY MOUTH ONCE DAILY IN THE MORNING (Patient not taking: Reported on 04/09/2023) sertraline (ZOLOFT) 100 mg tablet Take 150 mg by mouth as directed. (Patient not taking: Reported on 04/09/2023) No current facility-administered medications for this visit. ALLERGIES Allergen Reactions Flagyl [Metronidazo* Anaphylaxis Objective: BP 95/60 Pulse 87 Temp (Src) 98.7 (Temporal) Resp 14 Wt 118 lb (53.5kg) Physical Exam: General: no acute distress, well groomed HEENT: normocephalic, atraumatic. Nonicteral sclera, extraocular motions intact bilaterally. Bilateral tragus without any tenderness to palpation. Bilateral ear canals without any erythema or cerumenimpaction. Left TM erythematous and bulging. Right TM visualized and intact. Nose without active drainage. Oropharynx without lesions, moist mucous membranes. Tenderness to palpation of left TMJ. Full ROM of jaw Neck: no palpable lymphadenopathy Cardiovascular: normal peripheral perfusion, regular rate and rhythm Lungs: Non-labored breathing, clear to auscultation bilaterally. No wheezing, rales, or rhonchi Skin: No lesions appreciated on exposed surfaces Psych: Cooperative, answers questions appropriately Assessment and Plan: (H66.002) Acute suppurative otitis media of left ear without spontaneous rupture of tympanic membrane, recurrence not specified (primary encounter diagnosis) (M26.622) TMJ tenderness, left Comment: Patient with hx of teeth grinding and TMJ with recent left otitis media s/p 7 day course amoxicillin presents with 10 day hx of left otalgia and intermittent left TMJ pain, found to have exam for continued left otitis media with left sided TMJ. Discussed etiology of diagnosis with patient.Rx Augmentin ordered to be started today. Advised to start ibuprofen/acetaminophen prn jaw pain or left ear pain and advised to avoid hard or crunchy foods. Discussed risks, benefits, alternatives, and potential side effects of medications. Referral to ENT Department was placed for close follow up.Advised to follow up with PCP if symptoms continue or worsen and advised to go to ED if uncontrolled fever, worsening jaw pain, numbness/tingling, chest pain, shortness of breath, inability to tolerate oral intake, or new concerning symptoms begins. Patient expressed understanding. Plan: amoxicillin-clavulanate potassium (AUGMENTIN) 875-125 mg per tablet, fluconazole (DIFLUCAN) 150 mg tablet, CONSULT TO ENT Moriah Malin MD [facility] NoteED Nursing Discharge Summary Entered On: 06/04/2023 21:08 EST Performed On: 06/04/2023 18:38 EST by Sherri To RN OR Information [id number] ED IV's : No IV ED IV Site Assessment : No IV ED Vitals Completed : N/A ED Final Assessment Completed : N/A ED Progress Note Completed : N/A Complete all PRN/Pain response forms? : N/A ED Disassociate Patient from Monitor : N/A Updated Depart Time : Yes ED Belongings sent w patient [id number] : Yes Valuables Complete : Not applicable Sherri To RN - 06/04/2023 21:08 EST Education Instructions given to : Other: lwot TeachBack Methodology : Other: lwot Barriers to Learning : Other: lwot Sherri To RN - 06/04/2023 21:08 EST ED Assistance Summary Assistance Given? : No Sherri To RN - 06/04/2023 21:08 EST [facility]02-21-2024 Instructions* Patient Instructions* Wendy Heaton PA-C - 05/29/2023 9:40 AM EST OTITIS MEDIA GENERAL INFORMATION: Otitis media is an infection of the middle ear. The middle ear sits behind the eardrum. This infection may be caused by a virus or bacteria and often follows a cold. Children often have repeat ear infections. Otitis media is not contagious. INSTRUCTIONS: 1. An antibiotic has been prescribed. It should be taken exactly as prescribed. Do not stop the medicine even if the symptoms go away. 2. [id number] pain medication may be taken or other pain medication as prescribed by the doctor. 3. Nothing should be placed in the ear unless instructed by your doctor. 4. The patient may return to school/daycare or work when the temperature is normal (98.6 F or 37 C). 5. The patient should not swim while the ear is infected. CONTACT YOUR DOCTOR IF YOU OR YOUR CHILD: 1. Does not feel better within 36 hours. 2. Develops a temperature over 102E F (39E C). 3. Starts vomiting or has diarrhea. 4. Develops drainage from the affected ear. 5. Has any new problem that may be related to the medicine prescribed. GO TO THE ED IF: 1. You or your child has a severe headache or pain around the ear. 2. You or your child notice swelling around the ear. 3. You or your child has a seizure (convulsion), twitching of the facial muscles, or passes out. 4. You or your child is dizzy, has a stiff neck, or cannot walk or talk normally. 5. Your child becomes more irritable or listless (not interested in his or her surroundings, does not get soothed by you holding him or her). documented in this encounterWestern [facility]02-[facility]-2024 NoteHNO ID: [id number] Author: WENDY HEATON PA-C Service: ? Author Type: Physician Corrugator Supervisor Type: Progress Notes Filed: 05/29/2023 09:42 Note Text: This note was created using qunbter. Subjective Lm Monaco is a 48 year old female who presents with one month of left ear pain, congestion and post nasal drip. The ear pain is worsening x 2 days. She is taking Aleve with mild relief. No trauma to ear, swimming or airplane travel. Review of Systems Constitutional: Negative for chills and fever. HENT: Positive for congestion and ear pain. Negative for dental problem, ear discharge, sore throat and trouble swallowing. Respiratory: Negative for cough and shortness of breath. Cardiovascular: Negative for chest pain. Gastrointestinal: Negative for diarrhea and vomiting. Musculoskeletal: Negative for neck pain and neck stiffness. Skin: Negative for rash. Neurological: Negative for headaches. Objective BP 97/65 (BP Site: Right Arm, BP Position: Sitting, BP Cuff Size: Regular Adult) Pulse 83 Temp 36.6 ?C (97.8 ?F) (Temporal) Resp 15 Wt 53.5 kg (118 lb) BMI 19.85 kg/m? Physical Exam Vitals and nursing note reviewed. Constitutional: General: She is not in acute distress. Appearance: Normal appearance. She is not toxic-appearing. HENT: Head: Normocephalic and atraumatic. Right Ear: Tympanic membrane normal. Ears: Comments: Left TM with erythema and fluid level No otorrhea or canal swelling Right TM ok Nose: Congestion present. Mouth/Throat: Mouth: Mucous membranes are moist. Pharynx: No oropharyngeal exudate or posterior oropharyngeal erythema. Eyes: Conjunctiva/sclera: Conjunctivae normal. Skin: Findings: No rash. Neurological: Mental Status: She is alert. Assessment and Plan 1. Acute otitis media, left - ICD9: 382.9, ICD10: H66.92 - Will begin treatment with as per antibiotic as written, see orders - The patient should also be given OTC decongestants prn, OTC cough and cold meds as needed, warm salt water gargles, throat lozenges and/or OTC throat spray as needed, and nasal saline gtts and suction prn for the first 5-7 days of treatment. - Supportive care with plenty of fluids, rest, and analgesia prn. - Follow up in 3-5 days if symptoms persist or worsen. - FLUTICASONE PROPIONATE 50 MCG/ACTUATION NASAL SPRAY,SUSPENSION - AMOXICILLIN 875 MG TABLET [facility]02-21-2024 History of Present illness Narrative* Wendy Heaton PA-C - 05/29/2023 9:37 AM EST This note was created using [employer]. Subjective Lm Monaco is a 48 year old female who presents with one month of left ear pain, congestion andpost nasal drip. The ear pain is worsening x 2 days. She is taking Aleve with mild relief. No trauma to ear, swimming or airplane travel. Review of Systems Constitutional: Negative for chills and fever. HENT: Positive for congestion and ear pain. Negative for dental problem, ear discharge, sore throatand trouble swallowing. Respiratory: Negative for cough and shortness of breath. Cardiovascular: Negative for chest pain. Gastrointestinal: Negative for diarrhea and vomiting. Musculoskeletal: Negative for neck pain and neck stiffness. Skin: Negative for rash. Neurological: Negative for headaches. Objective BP 97/65 (BP Site: Right Arm, BP Position: Sitting, BP Cuff Size: Regular Adult) Pulse 83 Temp 36.6 C (97.8 F) (Temporal) Resp 15 Wt 53.5 kg (118 lb) BMI 19.85 kg/m Physical Exam Vitals and nursing note reviewed. Constitutional: General: She is not in acute distress. Appearance: Normal appearance. She is not toxic-appearing. HENT: Head: Normocephalic and atraumatic. Right Ear: Tympanic membrane normal. Ears: Comments: Left TM with erythema and fluid level No otorrhea or canal swelling Right TM ok Nose: Congestion present. Mouth/Throat: Mouth: Mucous membranes are moist. Pharynx: No oropharyngeal exudate or posterior oropharyngeal erythema. Eyes: Conjunctiva/sclera: Conjunctivae normal. Skin: Findings: No rash. Neurological: Mental Status: She is alert. Assessment and Plan 1. Acute otitis media, left - ICD9: 382.9, ICD10: H66.92 - Will begin treatment with as per antibiotic as written, see orders - The patient should also be given OTC decongestants prn, OTC cough and cold meds as needed, warm salt water gargles, throat lozenges and/or OTC throat spray as needed, and nasal saline gtts and suction prn for the first 5-7 days of treatment. - Supportive care with plenty of fluids, rest, and analgesia prn. - Follow up in 3-5 days if symptoms persist or worsen. - FLUTICASONE PROPIONATE 50 MCG/ACTUATION NASAL SPRAY,SUSPENSION - AMOXICILLIN 875 MG TABLET Wendy Heaton PA-C documented in this encounterWestern [facility]02-20-2024 NoteHNO ID: [id number] Author: MORIAH MALIN MD Service: ? Author Type: Physician Type: Progress Notes Filed: 05/28/2023 11:01 Note Text: This encounter was opened in error.[facility]02-20-2024 History of Present illness Narrative* Moriah Malin MD - 05/28/2023 11:01 AM EST This encounter was opened in error. documented in this encounterWestern [facility]01-02-2024 NoteHNO ID: [id number] Author: Devante Gandhi, DO Service: ? Author Type: Physician Type: Progress Notes Filed: 04/09/2023 2:24 PM Note Text: Urgent Care Note History of Present Illness:ddddf Lm Monaco is a 48 year old female who presents today for chief complaint: Cough (Achy feel like he's gonna pass out for 1 day. Stopped taking anti depressants a week ago . Feels dizzy ) Patient presents with complaint of cough that started last night. Dizziness started this morning. Feels like her face goes numb when she moves it. Feels it only when she moves her head. Feels like she will fall over. This has been pretty consistent since awakening. Associated with chills, and headache, mild nausea, and runny nose. Admits to a few episodes of diarrhea that have since resolved. No medications yet. Flu immunized. - Denies: fever, chills, headache, dizziness, nausea, vomiting, ear pain, difficulty breathing, abdominal pain. Review of Symptoms: Pertinent positives and negatives noted per HPI otherwise review of systems is negative. Past Medical History: No past medical history on file. No past surgical history on file. Current Outpatient Medications Medication Sig ARIPiprazole (ABILIFY) 30 mg tablet TAKE 1 TABLET BY MOUTH ONCE DAILY IN THE MORNING (Patient not taking: Reported on 04/09/2023) sertraline (ZOLOFT) 100 mg tablet Take 150 mg by mouth as directed. (Patient not taking: Reported on 04/09/2023) No current facility-administered medications for this visit. ALLERGIES Allergen Reactions Flagyl [Metronidazo* Anaphylaxis Objective: BP 86/58 Pulse 96 Temp (Src) 99.4 (Oral) Resp 18 Ht 5' 4.646 (1.64m) Wt 118 lb 6.2 oz (53.7kg) SpO2 96% BMI 19.92 kg/(m2). GENERAL: Appears nourished AND normally developed for his age. EYES: Head exam is unremarkable. No scleral icterus or orbital trauma noted. HEENT: Mucous membranes moist. Nasal turbinates are boggy and erythematous consistent with a URI. Not too much rhinorrhea. Throat is minimally erythematous without obvious evidence of strep throat. Post nasal drip. Neck is supple without prominent lymphadenopathy. LUNGS: Lungs are clear to auscultation. Some cough reported, but no respiratory distress at this time. CARDIAC: Rhythm is regular. No dysrhythmias or murmurs. ABDOMEN: Nontender with no obvious masses, and no peritoneal signs. EXTREMITIES: Nonedematous, with no obvious deformities. SKIN: Good color. No pallor. Warm/dry. No significant rashes. NEURO: No obvious neurological deficits, moves without evidence of cerebellar infarction. Assessment and Plan: ASSESSMENT/PLAN: 1. Viral illness - ICD9: 079.99, ICD10: B34.9 - Discussed viral etiology and rationale for treatment. - Symptomatic treatment with medication recommendations below - Supportive care with fluids and rest - COVID AND INFLUENZA A/B NAAT, ROUTINE Symptom management: Increase fluid intake and REST as much as possible Can try a antihistamine (ie: zytrec-cetirizine, Claritin, or Coretta) for allergy symptoms may be helpful daily for 5 days. Saline nasal spray or nasal steroid spray (ie: Flonase -fluticasone propionate) daily for five days. May use a cool mist or humidifier Steamy baths or showers can be helpful to moisten the airways Can take acetaminophen and/or motrin, as directed, for pain or fever, as directed Mucinex (guafenesin) may help manage mucus Frequent hand-washing with soap and water Can drink warm liquids/broth to soothe throat and thin secretions Parent/Guardian verbalized understanding of plan. PLEASE PROCEED TO NEAREST ED IF DEVELOPING: Any abrupt change in illness or concerning symptoms such as: fever greater than 102F which is not responding to Tylenol or Motrin, difficulty swallowing, shortness of breath, unable to tolerate oral intake due to nausea and vomiting, difficulty breathing, chest pain, seizure, or other concerns report to nearest Emergency Department. Advised to return if no improvement. Follow up with No primary care provider on file.. Discussed risks, benefits, alternatives, and potential side effects of medications. See patient instructions. Devante Gandhi, TRACYOhioHealth [facility]heastern [facility]12-03-2023 NoteHNO ID: [id number] Author: Svitlana Foster APRN.CUSTOMER QUALITY ENGINEER Service: ? Author Type: Nurse Practitioner Type: Progress Notes Filed: 03/10/2023 11:41 AM Note Text: This note was created using [employer]. Subjective HPI Lm Monaco is a 47 year old female who presents with c/o sore throat that started yesterday. Patient states she thought that she saw some white spots on her tonsils so she wanted to come and get checked for strep. She states it is painful to swallow. She reports associated body aches and overall not feeling well. No congestion, runny nose, cough, or fever. Patient states she has been drinking hot tea but has not taken any medications for symptoms. She reports COVID has been going around her workplace as well. Review of Systems Constitutional: Positive for fatigue. Negative for chills and fever. HENT: Positive for sore throat. Negative for congestion, ear pain, postnasal drip, rhinorrhea, trouble swallowing and voice change. Respiratory: Negative for cough. Gastrointestinal: Negative for diarrhea, nausea and vomiting. Musculoskeletal: Positive for myalgias. Skin: Negative for rash. Neurological: Negative for headaches. No past medical history on file. No past surgical history on file. ALLERGIES Allergen Reactions Flagyl [Metronidazo* Anaphylaxis Objective BP 99/62 (BP Site: Right Arm, BP Position: Sitting, BP Cuff Size: Regular Adult) Pulse 75 Temp 36.6 ?C (97.9 ?F) (Temporal) Resp 16 Ht 162.6 cm (5' 4) Wt 52.2 kg (115 lb) SpO2 99% BMI 19.74 kg/m? Physical Exam Constitutional: General: She is not in acute distress. Appearance: Normal appearance. She is not toxic-appearing. HENT: Head: Normocephalic and atraumatic. Right Ear: Tympanic membrane and ear canal normal. Left Ear: Tympanic membrane and ear canal normal. Nose: Nose normal. Mouth/Throat: Mouth: Mucous membranes are moist. Pharynx: Uvula midline. Posterior oropharyngeal erythema (with cobblestoning) present. No pharyngeal swelling, oropharyngeal exudate or uvula swelling. Tonsils: No tonsillar exudate or tonsillar abscesses. 1+ on the right. 1+ on the left. Comments: No trismus, normal tolerance of secretions Eyes: Extraocular Movements: Extraocular movements intact. Conjunctiva/sclera: Conjunctivae normal. Cardiovascular: Rate and Rhythm: Normal rate and regular rhythm. Heart sounds: Normal heart sounds. Pulmonary: Effort: Pulmonary effort is normal. Breath sounds: Normal breath sounds. Musculoskeletal: General: Normal range of motion. Skin: General: Skin is warm and dry. Neurological: General: No focal deficit present. Mental Status: She is alert and oriented to person, place, and time. Psychiatric: Mood and Affect: Mood normal. Assessment and Plan 1. Sore throat - ICD9: 462, ICD10: J02.9 (primary diagnosis) - Group A strep molecular testing negative - STREP A MOLECULAR (POC) 2. Viral pharyngitis - ICD9: 462, ICD10: J02.9 - Discussed viral etiology and rationale for tx - COVID/FLU/RSV test ordered and performed based on patient's current symptoms and risk - Encouraged use of Mychart for results in 24-48hours - Advised on CDC isolation guidelines - Stay away from other household areas as much as possible - Wear a mask when in the same room as others - Rest/Fluids - OTC tylenol/motrin, cough/cold medications for symptom control - To ER if any chest pain, troubles breathing, drooling, troubles swallowing, swelling of your throat especially one side, neck pain/stiffness, rash, abdominal pain, intractable nausea vomiting or diarrhea, bloody or dark urine stool or vomit, pain or swelling behind ear(s), severe headache, dizziness/lightheadedness, fevers/chills, or worsening of symptoms whatsoever. - Patient verbalizes understanding and is comfortable with plan of care - COVID AND INFLUENZA A/B AND RSV NAAT, ROUTINE Svitlana Foster APRN.CNPUniversity Hospitals Conneaut Medical Center note Author Dot Foreman [facility] Note Date/Time August 26, 2024 12:12 pm [facility] Medical Records Department [address] [place] [address] Counseling Note - Pharmacy 08/26/24 1210 MR#: [id number] Acct: [id number] Name: VICTORIANO ALVARADOAtilio Rep #:[id number] : 1975 49 From: Dot Foreman PCP: Care Physician,No Primary Status :ADM IN Y Location: [place] [address] Pharmacy [facility] Service has performed discharge medication reconciliation and counseling for this patient. 1. ENOXAPARIN 40MG SC DAILY X 14 DAYS 2. OXYCODONE/ACETAMINOPHEN 5/325MG 1T PO Q4H PRN PAIN - DO NOT TAKE AT THE SAME TIME NORCO 3. NAPROXEN 500MG PO BID PRN PAIN The patient's discharge medication list was reviewed for discrepancies and discrepancies were resolved. The patient was counseled on the following discharge medications and changes in medications for homegoing were reviewed. The Reason for Use, instructions for use, and potential side effects were reviewed for all new medications. The patient's questions regarding all of their medications were answered. The patient was able to verbally demonstrate an understanding of their dischargemedications. Medications at Discharge Home Medications aripiprazole 20 mg tablet 20 mg PO DAILY 06/04/24 clonazepam 0.5 mg tablet 0.5 mg PO QHS PRN anxiety 06/04/24 cyclobenzaprine 10 mg tablet 10 mg PO TID PRN muscle spasm #30 tabs 07/15/24 hydrocodone-acetaminophen 5-325mg 5mg-325mg 1 tab PO Q6H PRN PRN Pain 5 days #14TABLETS 08/09/24 enoxaparin 40 mg/0.4 mL subcutaneous syringe (Lovenox) 40 mg (0.4 mL) SQ DAILY 14 days #20 mL 08/25/24 naproxen 500 mg tablet 500 mg PO BID PRN PRN Pain #30 tabs 08/25/24 oxycodone-acetaminophen 5 mg-325 mg tablet (Percocet) 1 tab PO Q4H PRN pain 7 days #20 tabs 08/25/24 08/26/24 1212 <Electronically signed by Dot Foreman> Date _ Dot Foreman Cosigner Signature (if applicable): Date CC: ~ Signed [facility] Work Phone: Evaluation note* Diagnosis OPENED IN ERROR- Primary To allow closing an encounter opened in error (used in SmartSet) [facility] Acute otitis media, left- Primary Unspecified otitis media [facility] Diagnosis Acute suppurative otitis media of left ear without spontaneous rupture of tympanic membrane, recurrence not specified- Primary TMJ tenderness, left [facility] Diagnosis Eustachian tube disorder, left- Primary [facility] Diagnosis Chronic left-sided low back pain with left-sided sciatica- Primary History of lumbar surgery [facility] Diagnosis Viral upper respiratory tract infection- Primary Acute upper respiratory infections of unspecified site Acute viral pharyngitis Acute pharyngitis [facility] Diagnosis Bronchitis- Primary Bronchitis, not specified as acute or chronic [facility] Diagnosis Chronic interstitial cystitis- Primary Right lower quadrant abdominal pain UTI (urinary tract infection), uncomplicated Urinary tract infection, site not specified Cyst of ovary, unspecified laterality documented in this encounter [facility] note* Diagnosis Skin infection- Primary Unspecified local infection of skin and subcutaneous tissue documented in this encounter [facility] note* Diagnosis Women's annual routine gynecological examination- Primary Encounter for screening for malignant neoplasm of vagina Special screening for malignant neoplasms, vagina Breast cancer screening by mammogram Encounter for colorectal cancer screening Special screening for malignant neoplasms, colon Screening for depression Family history of breast cancer Family history of malignant neoplasm of breast Family history of colon cancer Family history of malignant neoplasm of gastrointestinal tract documented in this encounter [facility] note* Diagnosis Acute left-sided low back pain with left-sided sciatica- Primary documented in this encounter [facility] note* Diagnosis Abscess of groin, right- Primary documented in this encounter [facility] noteNo assessment information availableWooBarn[facility] Work Phone: Evaluation note* Diagnosis Right lower quadrant abdominal pain- Primary Abdominal pain, right lower quadrant documented in this encounter [facility] note* Diagnosis Insect bite of left knee, initial encounter- Primary documented in this encounter [facility] note* Diagnosis Insect bite of left knee, subsequent encounter- Primary documented in this encounter [facility] note* Diagnosis Facial swelling- Primary Swelling, mass, or lump in head and neck [facility] Attachments The following attachments cannot be sent through Care Everywhere. * Abscess Incision and Drainage Discharge Instructions (Dutch) [facility] Additional Instructions Plenty of fluids and rest. Follow-up with your doctor if not improving. You may want to consider following up with one of the concussion clinics in [place] if not improving. Motrin Tylenol for pain. Benadryl also for headaches.[facility] Work Phone: Hospital Discharge instructionsAmbulatory Orders* 12 Lead EKG [[facility]] Location: None Selected [facility] Work Phone: Hospital Discharge instructions Additional Instructions Your lab work is stable. You have been given another prescription for further pain medication for further control. Please continue to follow-up with your [facility] OPERATOR as scheduled. Your CT also appears stable with no progression of fluid collection/hematoma. No signs of any other complication. Wear abdominal binder and splint your abdomen as we discussed in the ER.Take senna as needed for constipation if you are not starting to have bowel movements despite being on MiraLAX.[facility] Work Phone: Hospital Discharge instructions Additional Instructions Your physical exam is normal today. It is unlikely that there is any complication associated with your recent surgery.[facility] Work Phone: Reason for referral (narrative)* Diagnostic Procedure Only (Routine) - New Request Specialty Diagnoses / Procedures Referred By Contac t Referred To Contact [facility] Diagnoses Breast cancer screening by mammogram Procedures CHARITO SCREENING W MART SCREENING DIGITAL BREAST TOMOSYNTHESIS BI SCREENING MAMMOGRAPHY BI 2-VIEW BREAST INC Akilah Leigh PA-C [address] [facility] [address] [place] [address] [facility] [address] [place] [address] Referral ID Status Reason Start Date Expiration Date Visits Requested Visits Authorized [id number] New Request Auto-Generat ed Referral 03/11/2024 04/10/2025 1 1 Y [facility] for referral (narrative)No reason for referral information availableWooBarnesville Hospital Work Phone: Summary Purpose Family History Relationship Condition Age at Onset Recorded Date/T franco grandmother Malignant neoplasm of ovary 69 aunt Malignant neoplasm of breast 45 Advance Directives Advance Directive Response Recorded Date/ Time Living Will No June 04 1:16am Do you have a Healthcare Power of Atomic Spectroscopist? No June 04, 2024 1:16am Living Will No June 04 6:54pm Do you have a Healthcare Power of Atomic Spectroscopist? No June 04, 2024 6:54pm Living Will No June 07, 2024 11:30am Do you have a Healthcare Power of Atomic Spectroscopist? No June 07, 2024 11:30am Living Will No July 08, 2024 6:56pm Do you have a Healthcare Power of Atomic Spectroscopist? No July 08, 2024 6:56pm Advance Directive Response Recorded Date/ Time Living Will No June 04 025 1:16am Do you have a Healthcare Power of Atomic Spectroscopist? No June 04, 2024 1:16am Living Will No June 04 025 6:54pm Do you have a Healthcare Power of Atomic Spectroscopist? No June 04, 2024 6:54pm Living Will No June 07, 2024 11:30am Do you have a Healthcare Power of Atomic Spectroscopist? No June 07, 2024 11:30am Living Will No July 08, 2024 6:56pm Do you have a Healthcare Power of Atomic Spectroscopist? No July 08, 2024 6:56pm Do you have a Healthcare Power of Atomic Spectroscopist? No July 28, 2024 4:05pm Advance Directive Response Recorded Date/ Time Living Will No June 04 025 1:16am Do you have a Healthcare Power of Atomic Spectroscopist? No June 04, 2024 1:16am Living Will No June 04 025 6:54pm Do you have a Healthcare Power of Atomic Spectroscopist? No June 04, 2024 6:54pm Living Will No June 07, 2024 11:30am Do you have a Healthcare Power of Atomic Spectroscopist? No June 07, 2024 11:30am Living Will No July 08, 2024 6:56pm Do you have a Healthcare Power of Atomic Spectroscopist? No July 08, 2024 6:56pm Do you have a Healthcare Power of Atomic Spectroscopist? No July 28, 2024 4:05pm Do you have a Healthcare Power of Atomic Spectroscopist? No August 09, 2024 11:36am Do you have a Healthcare Power of Atomic Spectroscopist? No August 11, 2024 10:44am Advance Directive Response Recorded Date/ Time Living Will No June 04 025 1:16am Do you have a Healthcare Power of Atomic Spectroscopist? No June 04, 2024 1:16am Living Will No June 04 6:54pm Do you have a Healthcare Power of Atomic Spectroscopist? No June 04, 2024 6:54pm Living Will No June 07, 2024 11:30am Do you have a Healthcare Power of Atomic Spectroscopist? No June 07, 2024 11:30am Living Will No July 08, 2024 6:56pm Do you have a Healthcare Power of Atomic Spectroscopist? No July 08, 2024 6:56pm Do you have a Healthcare Power of Atomic Spectroscopist? No July 28, 2024 4:05pm Do you have a Healthcare Power of Atomic Spectroscopist? No August 09, 2024 11:36am Do you have a Healthcare Power of Atomic Spectroscopist? No August 11, 2024 10:44am Do you have a Healthcare Power of Atomic Spectroscopist? No August 25, 2024 9:02pm Advance Directive Response Recorded Date/ Time Living Will No June 04 1:16am Do you have a Healthcare Power of Atomic Spectroscopist? No June 04, 2024 1:16am Living Will No June 04 6:54pm Do you have a Healthcare Power of Atomic Spectroscopist? No June 04, 2024 6:54pm Living Will No June 07, 2024 11:30am Do you have a Healthcare Power of Atomic Spectroscopist? No June 07, 2024 11:30am Living Will No July 08, 2024 6:56pm Do you have a Healthcare Power of Atomic Spectroscopist? No July 08, 2024 6:56pm Do you have a Healthcare Power of Atomic Spectroscopist? No July 28, 2024 4:05pm Do you have a Healthcare Power of Atomic Spectroscopist? No August 09, 2024 11:36am Do you have a Healthcare Power of Atomic Spectroscopist? No August 28, 2024 12:06pm Do you have a Healthcare Power of Atomic Spectroscopist? No August 30, 2024 11:49am Do you have a Healthcare Power of Atomic Spectroscopist? No August 11, 2024 10:44am Do you have a Healthcare Power of Atomic Spectroscopist? No August 25, 2024 9:02pm Advance Directive Response Recorded Date/ Time Living Will No June 04 025 1:16am Do you have a Healthcare Power of Atomic Spectroscopist? No June 04, 2024 1:16am Living Will No June 04 6:54pm Do you have a Healthcare Power of Atomic Spectroscopist? No June 04, 2024 6:54pm Living Will No June 07, 2024 11:30am Do you have a Healthcare Power of Atomic Spectroscopist? No June 07, 2024 11:30am Living Will No July 08, 2024 6:56pm Do you have a Healthcare Power of Atomic Spectroscopist? No July 08, 2024 6:56pm Do you have a Healthcare Power of Atomic Spectroscopist? No July 28, 2024 4:05pm Do you have a Healthcare Power of Atomic Spectroscopist? No August 09, 2024 11:36am Do you have a Healthcare Power of Atomic Spectroscopist? No August 28, 2024 12:06pm Do you have a Healthcare Power of Atomic Spectroscopist? No August 30, 2024 11:49am Do you have a Healthcare Power of Atomic Spectroscopist? No September 18, 2024 1:18pm Do you have a Healthcare Power of Atomic Spectroscopist? No August 11, 2024 10:44am Do you have a Healthcare Power of Atomic Spectroscopist? No August 25, 2024 9:02pm Date Activated Date Inactivated Comments 01/29/2024 2:07 AM 01/31/2024 5:08 PM Question Answer Comments Documentation of decision pr ocess for this code status: Discussed with patient or surrogate. This is the code status chosen by the patient/surrogate. Reason for Referral Specialty Diagnoses / Procedures Referred By Cristofer ellsworth Referred To Contact Ent - Otolaryngology Diagnoses Acute suppurative otitis media of left ear without spontaneous rupture of tympanic membrane, recurrence not specified Procedures CONSULT TO ENT OFFICE/OUTPATIENT [facility] [address] [place] [address] [place] [address] Referral ID Status Reason Start Date Expiration Date Visits Requested Visits Authorized [id number] Authorized PCP Requested Referral 06/07/2023 06/06/2024 1 1 Specialty Diagnoses / Procedures Referred By Cristofer t Referred To Contact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 Drug Abuse Patient Records regulations: The Federal rules restrict any use of the information to criminally investigate or prosecute any alcohol or drug abuse patient.[facility] the event this information is protected by the Federal Confidentiality of Alcohol and Drug Abuse Patient Records regulations: The Federal rules restrict any use of the information to criminally investigate or prosecute any alcohol or drug abuse patient.[facility] the event this information is protected by the Federal Confidentiality of Alcohol and Drug Abuse Patient Records regulations: The Federal rules restrict any use of the information to criminally investigate or prosecute any alcohol or drug abuse patient.[facility] the event this information is protected by the Federal Confidentiality of Alcohol and Drug Abuse Patient Records regulations: The Federal rules restrict any use of the information to criminally investigate or prosecute any alcohol or drug abuse patient.[facility] the event this information is protected by the Federal Confidentiality of Alcohol and Drug Abuse Patient Records regulations: The Federal rules restrict any use of the information to criminally investigate or prosecute any alcohol or drug abuse patient.[facility] the event this information is protected by the Federal Confidentiality of Alcohol and Drug Abuse Patient Records regulations: The Federal rules restrict any use of the information to criminally investigate or prosecute any alcohol or drug abuse patient.[facility] Reason for Visit (unrecogniz ed section and content) Reason Onset Date Comments Ear Problem Earache Opened In Error 05/28/2023 Reason Comments Ear Problem Left ear pain for ab out a month but the pain woke her up last night Reason Comments Ear Pain Left ear along with jaw pain still is not feeling any better since visit on 05/29/23 Reason Comments Ear Problem Specialty Diagnoses / Procedures Referred By Cristofer ellsworth Referred To Contact [facility] Diagnoses ear pain Procedures [facility] [address] [place] [address] Referral ID Status Reason Start Date Expiration Date Visits Requested Visits Authorized [id number] Authorized Patient Cleared - Qualified 100% FAS 06/16/2023 08/15/2023 99 99 Reason Comments New PT NEW INSURANCE Specialty Diagnoses / Procedures Referred By Cristofer ellsworth Referred To Contact [facility] Diagnoses Chronic left-sided low back pain with left-sided sciatica Procedures [facility]SULT [facility] OFFICE/OUTPATIENT [facility] 60 MINUTES Wendy Heaton PA-C [address] [place] [address] Referral ID Status Reason Start Date Expiration Date V isits Requested Visits Authorized [id number] Closed PCP Requested Referral 07/04/2023 07/03/2024 1 1 Reason Comments Sore Throat Reason Comments Cough Cough is getting wor se . Exhausted ,body aches, anxiety. Was here on Saturday . Chest hurts a little bit-said I think I'm having anxiety because she is getting tingles and not used to being this sick. Been taking Advil PM . Reason Comments Abdominal pain Pt c/o RUQ pain x 1 hr, x1 emesis and dizziness x 2 days Reason Comments Cyst Pt c/o pain at cyst like raised area on R side of inner thigh. Pt states she first noticed it 2 days ago, believes she may cut her leg while shaving. Reason Comments Outbound Telemarketer Exam Reason Comments Results Reason Comments Back Pain Patient arrived to [facility] c/o back pain that radiates down left leg. States it is her sciatica. Pain 01/15 Reason Comments Cyst Pt states she has a cyst on pubic/groin region. States she has been on antibiotics for a week and a half but it has become much more painful today. Denies drainage or redness, fever or chills. Reason Comments Trauma Insect bite on left knee x 1 day Reason Comments Trauma Insect bite on left knee, painful Reason Onset Date Comments Refill Request 11/16/2024 Reason Comments Edema Right side of face s welling, pressure in area, no pain x this am Scheduled Active and Recently Administ ered Medications (unrecognized section and content) Medication Order 12/18/2023 12/19/2023 12/20/2023 calcium gluconate 10 % injection (COMPLETED) 2,000 mg, Intravenous Push, ONCE, 1 dose, On Sat12/20/23 at 0506 0524 (Given - Provid er: Ann Jacobo, DEBRA) cefTRIAXone (ROCEPHIN) 1,000 mg in dextrose 50 mL ivpb 1,000 mg, Intravenous, EVERY 24 HOURS ANTIBIOTIC, First dose on Sat12/20/23 at 0559, Until Discontinued 0600 (IV New Bag - P rovider: Ann Jacobo, DEBRA)0710 (IV Stop - Provider: Nancy Avila RN) iohexol (OMNIPAQUE) 350 MG/ML injection (COMPLETED) 100 mL, Intravenous Push, Once at Radiology exam, 1 dose, Starting on Sat12/20/23 at 0457, Until Sat12/20/23 at 0447, Imaging Protocol Orders 0447 (Bolus given - Provider: Marge Otoole) ketorolac (TORADOL) 15 MG/ML injection (COMPLETED) 15 mg, Intravenous Push, ONCE, 1 dose, On Sat12/20/23 at 0342 0350 (Given - Provid er: Ann Jacobo, DEBRA) lactated ringers iv bolus (COMPLETED) 1,000 mL, at 999 mL/hr, Intravenous, FLUID BOLUS, 1 dose, On Sat12/20/23 at 0342 0350 (IV New Bag - P rovider: Ann Jacobo RN)0701 (IV Stop - Provider: Nancy Avila RN) LORazepam (ATIVAN) 2 MG/ML injection (COMPLETED) 0.5 mg, Intravenous Push, ONCE, 1 dose, On Sat12/20/23 at 0342 0350 (Given - Provid er: Ann Jacobo RN) LORazepam (ATIVAN) tablet (COMPLETED) 0.5 mg, Oral, STAT, 1 dose, On Sat12/20/23 at 0904 0841 (Given - Provid er: Nancy Avila RN) magnesium sulfate in dextrose 5 % 1,000 mg in 100 mL ivpb (COMPLETED) 1,000 mg, Intravenous, ONCE, 1 dose, On Sat12/20/23 at 0559 0600 (IV New Bag - P rovider: Ann Jacobo RN)0827 (IV Stop - Provider: Nancy Avila RN) Continuous Medication Order 12/18/2023 12/19/2023 12/20/2023 dextrose 5 % and NaCl 0.9 % with KCl 20 mEq 1000 mL iv infusion Intravenous, at 500 mL/hr, CONTINUOUS, Starting on Sat12/20/23 at 0506, Until Discontinued 0506 (Hold/Not Given - Provider: Ann Jacobo RN - Reason: Not indicated) Scheduled Medication Order 02/22/2024 02/23/2024 02/24/2024 clindamycin (Cleocin) capsule 300 mg (COMPLETED) 300 mg, Oral, Once, On Sat02/24/24 at 2000, For 1 dose, Suspected Indication (Select all that apply): Skin and Soft Tissue Infection 2002 (Given - Provid er: Lacy Ortiz, DEBRA) traMADol (Ultram) tablet 50 mg (COMPLETED) 50 mg, Oral, Once, On Sat02/24/24 at 2000, For 1 dose 2003 (Given - Provid er: Lacy Ortiz, DEBRA) Scheduled Medication Order 03/30/2024 03/31/2024 04/01/2024 Lidocaine 4 % patch 1 patch 1 patch, TransDERmal, Administer over 12 Hours, Once, On Sat04/01/24 at 0550, For 1 dose, Apply to left low back. 0557 (Medication Kalyan lied - Provider: Staci Davis LPN - Comment: applied to lower back.)0612 (Due: Medication Removed - Provider: Automatic Discharge Provider - Comment: Time automatically adjusted from order being discontinued) orphenadrine (Norflex) injection 60 mg (COMPLETED) 60 mg, IntraMUSCular, Once, On Sat04/01/24 at 0550, For 1 dose 0556 (Given - Provid er: Staci Davis LPN) oxyCODONE (Roxicodone) immediate release tablet 5 mg (COMPLETED) 5 mg, Oral, Once, On Sat04/01/24 at 0550, For 1 dose 0556 (Given - Provid er: Staci Davis LPN) Scheduled Medication Order 04/24/2024 04/25/2024 04/26/2024 lidocaine-EPINEPHrine (Xylocaine W/EPI) 1 %-[id number] injection 5 mL 5 mL, Infiltration, Once, On 04/26/24 at 1720, For 1 dose 1720 (Canceled Entry - Provider: Automatic Discharge Provider - Comment: Automatically canceled at discontinue of medication order) oxyCODONE-acetaminophen (Percocet) 5-325 MG per tablet 1 tablet (COMPLETED) 1 tablet, Oral, Once, On 04/26/24 at 1720, For 1 dose, Maximum dose of acetaminophen is 4000 mg from all sources in 24 hours. 1720 (Given - Provid er: Christen Spivey RN) Goals (unrecognized section and content) Goals may be documented in a n alternate sectionGoals may be documented in an alternate sectionGoals may be documented in an alternate sectionGoals may be documented in an alternate section FOR RECORDS PERTAINING TO PATIENTS WHO ARE OR HAVE BEEN ENROLLED IN A CHEMICAL DEPENDENCY/SUBSTANCEABUSE PROGRAM, SOME INFORMATION MAY BE OMITTED. This clinical summary was aggregated from multiple sources. Caution should be exercised in using it in the provision of clinical care. This summary normalizes information from multiple sources, and as a consequence, information in this document may materially change the coding, format and clinical context of patient data. In addition, data may be omitted in some cases. CLINICAL DECISIONS SHOULD BE BASED ON THE PRIMARY CLINICAL RECORDS. [facility]. provides no warranty or guarantee of the accuracy or completeness of information in this document.
== END 2025-01-23 00:23 | disposition home or self-care (01) ==
PROVIDERS: Emergency Provider Emergency Medicine; Visit Provider Emergency Medicine
DX: K04.7 Periapical abscess without sinus (principal); F31.9 Bipolar disorder, unspecified; F17.210 Nicotine dependence, cigarettes, uncomplicated; F41.9 Anxiety disorder, unspecified; Z79.899 Other long term (current) drug therapy; Z90.6 Acquired absence of other parts of urinary tract; Z90.721 Acquired absence of ovaries, unilateral; Z98.51 Tubal ligation status; Z90.710 Acquired absence of both cervix and uterus; F17.290 Nicotine dependence, other tobacco product, uncomplicated
CPT/HCPCS: 99283

== ENCOUNTER 2025-01-24 11:21 | Emergency (ER) | payer MEDICAID, SELFPAY ==
[2025-01-24 11:21] VITALS: BP 96/70; PULSE 93; RESP 18; TEMP 36.9; O2SAT 97; BMI 20.3
--- OUTSIDE RECORDS SUMMARY | 2025-01-24 17:15 | XMS RPT_ITS | CCD ---
Author Organization [facility] Care Team Providers [employer] Consultant Name Role Phone Blaire Almaraz MD Unavailable [phone] Marge Cunningham Unavailable NO, PHYSICIAN Primary Care Unavailable STEWART BOURNE [...] Primary Care Unavailable IRAJ DOWNING Attending Unavailabl JAK Pack Attending Unavaila ble NO, PHYSICIAN Primary Care Unavailable DUNIA SANTANA Attending Unavailab le NO, PHYSICIAN Primary Care Unavailable NO, PHYSICIAN Primary Care Unavailable STEFANY GONZALEZ Attending Unavailable Blaire Almaraz MD Unavailable Marge Cunningham Unavailable Unavailable Primary Care Provider Unavailabl e Unavailable Primary Care Provider Unavailabl REX Zamudio MD Attending Unavailable BERNIE NUR, SHASHA Primary Care Unavailable NO FAMILY PHYSICIAN, 837 Primary Care Unavail able REX QUEZADA MD Attending Unavailable ALARAFI DO, SARAH Attending Unavailable BERNIE NUR, SHASHA Primary Care Unavailable NO FAMILY PHYSICIAN, 837 Primary Care Unavail able PHILL VAZQUEZ DO Attending Unavailable NO FAMILY PHYSICIAN, 837 Primary Care Unavail able PHILL VAZQUEZ DO Attending Unavailable KINGSLEY MARQUES Attending Unavailable LENWENDIE, WENDY E Referring Unavailable HARRY CROSS Attending Unavailable DARYN DORANTES Attending Unavailable PROVIDER, UNKNOWN Admitting Unavailable PROVIDER, UNKNOWN Attending Unavailable PROVIDER, UNKNOWN Admitting Unavailable HAXHIU-ERHARDT, LENDITA Attending Unavaila ble HAXHIU-ERHARDT, LENDITA Admitting Unavaila ble Unavailable Primary Care Provider Unavailabl e Unavailable Primary Care Provider Unavailabl e Agnes CASTAÑEDA, Akilah López Unavailable [phone] Delano Mayen DO Primary Care Provider Delano Mayen DO Primary Care Provider [phone] JAK MEDELLIN Attending Unavailable HEMAL CHOE Attending Unavailable DELANO MAYEN Primary Care Unavailable DELANO MAYEN Primary Care Unavailable Dr. Rik Marshall DO Attending Provider Dr. Rik Marshall DO Emergency Provider Dr. Richard Burgos MD Attending Provider Dr. Richard Burgos MD Emergency Provider [facility] Doctor, Out of Primary Care Provider Milton Solo MD, Mo Attending Provider [phone] Mo Solo MD Emergency Provider Dr. Vickie Louie DO Emergency Provider UngDr. Vickie crump DO Attending Provider [facility] Doctor, Out of Referring Provider Unavailab Dr. Treasure Goins MD Attending Provider Dr. Juan Lovell MD Emergency Provider Care Physician, No Primary Primary Care Provider Unavailable Dr. Juan Lovell MD Attending Provider [phone] Care Physician, No Primary Referring Provider Un available Dr. Moriah Mcdonough DO Attending Provider Dr. Moriah Mcdonough DO Referring Provider Nanda NUR, Dr. Rivas Attending Provider [phone] Triston NUR, Dr. Amanda Referring Provider Triston NUR, Dr. Amanda Other Provider [phone] Triston NUR, Dr. Amanda Admit Provider [phone] Dr. Love Emery DO Emergency Provider Dr. Love Emery DO Attending Provider Augusto NUR, Dr. Kevin Attending Provider [facility] Primary Care Pro vider Care Physician, No Primary Referring Unava ilable Treasure Cardoso Attending [facility], [facility] Primary Care Unavailable Care Physician, No Primary Referring Unava ilable Jak Casas Attending [facility], [facility] Primary Care Unavailable Treasure Cardoso Attending Unavailable [...] Rik Marshall Attending Unavailable Love Emery Attending [facility], [facility] Primary Care Unavailable Mo Solo Attending Unavailable [...] Care Unava ilable Rob Vee Attending Unavailable Treasure Cardoso Referring Unavailable Care Physician, No Primary Primary Care Unava ilable Treasure Cardoso Attending Unavailable Treasure Cardoso Consulting Unavailable Treasure Cardoso Referring Unavailable Care Physician, No Primary Primary Care Unava ilable Marcnicony, Treasure Attending Unavailable Marcanthony, Treasure Consulting Unavailable Marcanthony, Treasure Admitting Unavailable Town Doctor, Out of Primary Care Unavailable Vickie Louie Attending Unavailable Care Physician, No Primary Primary Care Unava ilable Juan Lovell Attending Unavailable Burgos, Richard Attending Unavailable Town Doctor, Out of Primary Care Unavailable Rik Marshall Attending Unavailable Care Physician, No Primary Primary Care Unava ilable Love Emery Attending Unavailable Care Physician, No Primary Primary Care Unava ilable Care Physician, No Primary Primary Care Unava ilable Marcanthony, Treasure Attending Unavailable Marcanthony, Treasure Admitting Unavailable Marcanthony, Treasure Referring Unavailable Care Physician, No Primary Primary Care Unava ilable Juan Lovell Attending Unavailable Provider, Ed Physician Attending Unavailab le Care Physician, No Primary Primary Care Unava ilable Care Physician, No Primary Primary Care Unava ilable Marcreddy, Treasure Attending Unavailable Care Physician, No Primary Referring Unava ilable [facility], [facility] Provider BLAKE FALCON Attending Unavailable JEFFRY GERONIMO Attending Unavailable DELANO MAYEN Primary Care Unavailable DELANO MAYEN Primary Care Unavailable GIDEON ACE Attending Unavailable DELANO MAYEN Primary Care Unavailable DELANO MAYEN Primary Care Unavailable JO-ANN PARK Attending Unavailable Allergies Allergy Classification Reported Allergen(s) [...] Ketorolac Drug Allergy 12-26-19 Other: See Comments [facility] (2 sources) Naproxen Drug Allergy 09-11-19 Nausea [facility] (1 source) metroNIDAZOLE Drug Allergy 09-19-19 [facility] Repository (1 source) Naproxen Drug Allergy 09-19-19 [facility] Repository Medications Current Medications Medication Drug Class(es) [...] July 08, 2024 7:57pm polyethylene glycol 3350 07347 mg powder for oral solution (5 sources) [...] mg by mouth as needed. Active sennosides, retirement 8.6 mg oral tablet (4 sources) Start: [...] 6 HOURS NEEDED as needed for Pain 14 August 09, 2024 August 28, 2024 1:03pm Start: [...] PO Q4H as needed for pain 28 7 September 03, 2024 Start: 04-26-2024 End: 04-26-2024 [...] Comment on above: [facility] 1 [facility] a day for 7 days. [...] on above: Take 1 tablet by yash two times a day as needed (for [...] Indications: Acute otitis media, left Use 1 [place] in each nostril daily at bedtime. 9.9 mL 05/29/2023 03/11/2024 Discontinued Comment on above: Use 1 [place] in each nostril daily at bedtime. 1000 [...] Discontinued 5 mg PO EVERY 6 HOURS 03 10August 30, 2024 September 09, 2024 8:42am Start: [...] above: Take 1 tablet by yash th every 4 hours as needed for cold/allergy [...] visit but she is already scheduled with FLATBED PRESS OPERATOR for future wound care visit. Delirium, dementia, and amnestic and other cognitive disorders (19 sources) Postconcussion syndrome; Translations: [Postconcussional syndrome] 06-12-2024 Chronic Diseases of mouth; excluding dental (2 sources) Unspecified lesions of oral mucosa; Translations: [Unspecified lesions of oral mucosa] Onset: 3 Episodic Disorders of teeth and jaw (7 sources) Periapical abscess without sinus; Translations: [Other specified disorders of teeth and supporting structures] Onset: 3 Episodic E Codes: Natural/environment (2 [...] reasons; Translations: [Left against medical advice] Onset: 4 Episodic Residual codes; unclassified (1 source) Family [...] Classification Problem Date Documented Da te Episodic/Chronic Nutritional deficiencies (1 source) Cobalamin deficiency; Translations: [...] Test Name Value Interpretation Reference Range Facility [facility] 01-21-2025 CNOV Office Visit ([facility]) ----- LM ALVARADO ([id number]) 1975 F CHT Date Time Provider Department 01/21/25 11:30 AM JEFFRY GERONIMO WOISA During your visit today, we recorded the following information about you: Temperature Pulse Respiration Blood pressure 97.6 degrees 69/minute 18/minute 96/61 Weight 54.2 kg Jeffry Geronimo APRN.[employer]OCIATE 01/21/2025 11:54 AM Signed [facility] Subjective Lm Alvarado is a 49 year old female. Patient presents with: Dental Problem: R upper front x2 days Dental Problem The patient is a 49-year-old female presenting for evaluation of dental pain. Dental Pain: - Pain localized to the lower teeth, radiating to the face. - Pain began after partial tooth extraction in August. - Taking ibuprofen with minimal relief; helps with swelling. - Has not seen a dentist in 2 years. - Allergies: Flagyl. - Recent history of smoking cessation. Review of Systems Ears/Nose/Mouth/Throat: (+) tooth pain, (+) facial swelling (-) fever PAST MEDICAL HISTORY Diagnosis Date - Abnormal Pap smear of vagina - Anemia - Bipolar disorder (HCC) - BRCA negative 03/2024 Negative Dev[facility] Empower Panel - Constipation - Depression - Diarrhea - Dyspareunia in female - Hypotension - Interstitial cystitis - Migraines - Ovarian cyst - Pulmonary embolism (HCC) after back surgery PAST SURGICAL HISTORY Procedure Laterality Date - BACK SURGERY HX 2005 L3 AND L4 - BLADDER SURGERY HX 2008 bladder distention x4 - LIGATE FALLOPIAN TUBE 2004 - S BALLOON,UTERINE ABLATION 37074 2005 - VAGINAL HYSTERECTOMY 2013 ovaries remain ALLERGIES Flagyl [Metronidazole], Ketorolac Tromethamine, and Nalbuphine MEDICATIONS - clonazePAM (KLONOPIN) 0.5 mg tablet Take 0.5 mg by mouth once daily as needed. - ARIPiprazole (ABILIFY) 15 mg tablet Take 20 mg by mouth once daily. - amoxicillin (AMOXIL) 875 mg tablet Take 1 tablet by mouth two times a day for 7 days. - doxycycline hyclate (VIBRAMYCIN) 100 mg capsule Take 1 capsule by mouth two times a day. (Patient not taking: Reported on 01/21/2025) - doxycycline hyclate (VIBRAMYCIN) 100 mg capsule Take 1 capsule by mouth two times a day. (Patient not taking: Reported on 01/21/2025) - QUEtiapine (SEROQUEL) 25 mg tablet Take [...] - Colon Cancer Other 47 SOCIAL HISTORY[1] Objective BP 96/61 Pulse 69 Temp 36.4 ?C (97.6 ?F) Resp 18 Wt 54.2 kg (119 lb 7.8 oz) SpO2 96% BMI 20.51 kg/m? Physical Exam Constitutional: General: She is not in acute distress. Appearance: Normal appearance. She is normal weight. She is not ill-appearing or toxic-appearing. HENT: Head: Normocephalic and atraumatic. Jaw: No trismus. Right Ear: Tympanic membrane, ear canal and external ear normal. Left Ear: Tympanic membrane, ear canal and external ear normal. Nose: Congestion and rhinorrhea present. Right Sinus: Maxillary sinus tenderness and frontal sinus tenderness present. Left Sinus: No maxillary sinus tenderness or frontal sinus tenderness. Mouth/Throat: Dentition: Abnormal dentition. Dental tenderness and gingival swelling present. No dental abscesses or gum lesions. Tongue: No lesions. Tongue does not deviate from midline. Palate: No mass and lesions. Pharynx: Oropharynx is clear. Uvula midline. Eyes: Conjunctiva/sclera: Conjunctivae normal. Pupils: Pupils are equal, round, and reactive to light. Cardiovascular: Rate and Rhythm: Normal rate and regular rhythm. Pulses: Normal pulses. Pulmonary: Effort: Pulmonary effort is normal. Breath sounds: Normal breath sounds. Lymphadenopathy: Cervical: Cervical adenopathy present. Neurological: Mental Status: She is alert. { 1. Tooth infection (K04.7) - Ongoing pain and swelling since partial tooth extraction in August; lymphadenopathy noted on exam. - Start penicillin-based antibiotic. - Advised use of naproxen with food for pain management; explained that antibiotics will address infection-related pain. - Provided list of dental clinics for follow-up care. No signs of ludwigs angina, deep neck tissue infection or mastoiditis. and Recording using [employer] software for draft documentation of the visit was discussed with the patient/authorized access representative; all questions welcomed and answered. Patient/authorized access representative agreed to proceed History and Record Review External record(s) reviewed: (more content not included)... Normal [facility] CNOVon 12-11-2024 CNOV Office Visit ([facility]) ----- LM ALVARADO ([id number]) 1975 F T Date Time Provider Department 12/11/24 2:00 PM BLAKE FALCON During your visit today, we recorded the following information about you: Temperature Pulse Respiration Blood pressure 97.7 degrees 97/minute 20/minute 94/62 Weight 54 kg Blake Falcon APRN.[employer] RESEARCH ASSOCIATE 12/11/2024 2:09 PM Signed [facility] Isacc Lm Alvarado is a 49 year old [...] FALLOPIAN TUBE 2004 - S BALLOON,UTERINE ABLATION 22213 2005 - VAGINAL HYSTERECTOMY 2012 ovaries remain [...] any occur. (more content not included)... Normal [facility] CNOVon 11-16-2024 CNOV Office Visit ([facility]) ----- LM ALVARADO ([id number]) 1975 F T Date Time Provider Department 11/16/24 1:00 PM JO-ANN PARK During your visit today, we recorded the following information about you: Temperature Pulse Respiration Blood pressure 98.9 degrees 100/minute 18/minute 100/64 Weight 53.4 kg Jo-Ann Park, CARDIOTHORACIC ICU RN.[employer] RESEARCH ASSOCIATE 11/16/2024 1:23 PM Signed [facility]ARE [facility] Subjective Lm Alvarado is a 49 year old female. Patient presents with: Trauma: Insect bite on left knee, painful Trauma Left Knee Bite: - Onset: Saturday while camping at near [facility]. - [place] a burn and sting through long pants [...] LIGATE FALLOPIAN TUBE 2004 S BALLOON,UTERINE ABLATION 16651 2005 VAGINAL HYSTERECTOMY 2013 ovaries remain ALLERGIES Flagyl [...] Thought quang (more content not included)... Normal [facility] CNOVon 11-14-2024 CNOV Office Visit ([facility]) ----- LM ALVARADO ([id number]) 1975 F CHT Date Time Provider Department 11/14/24 10:45 AM GIDEON ACE During your visit today, we recorded the following information about you: Temperature Pulse Respiration Blood pressure 97 degrees 78/minute 20/minute 100/68 Weight 54.6 kg Gideon Ace APRN.[facility] 11/14/2024 10:58 AM Signed [facility]ARE [facility] Subjective Lm Alvarado [...] to seek further care. and Recording using [employer] software for draft documentation of the visit was discussed with the patient/authorized access representative; all questions welcomed and answered. Patient/authorized access representative agreed to proceed MDM Procedures Allergies [...] Status:Closed by GIDEON ACE on 11/14/24 Normal [facility] Emergency Department Summary on 09-18-2024 Emergency Department Summary [facility] Medical Records Department [address] [place] [address] [place] [address] Emergency Department Summary 09/18/24 MR#: [id number] Acct: [id number] Name: LM ALVARADO Rep #: [id number] : 1975 49 From: Love Emery DO PCP: [facility] Status:DEP ER Location: ED HPI HPI - Female [...] or urination. Came in for further evaluation. [facility] Medical History Wears glasses MRSA infection Bipolar [...] metronidazole (From Flagyl) Allergy Severe Anaphylaxis Verified 09/18/24 13:09 naproxen [...] 3 current occupational status: employed current occupation: [employer] Smoking Status: Current every day smoker tobacco [...] Orders C (more content not included)... Normal [facility] Casing Flusher Office Visit Reporton 09-10-2024 Casing Flusher Office Visit Report [facility] [address], [address] [place] [address] OFFICE VISIT Date of Service: 09/10/24 MR#: [id number] Acct: [id number] Name: LM ALVARADO Rep #: [id number] : 1975 Provider: Dr. Treasure viera MD Age/Sex: 49/F [place] [facility] [place]: Signed Intake Vital Signs 08/30/24 11:07 09/03/24 09:32 09/08/24 10:47 09/10/24 08:30 09/10/24 08:30 Height 5 ft 4 in 5 ft 4 in 5 ft 4 in 5 ft 4 in 5 ft 4 in Weight: 117 lb 8 oz BMI 20.1 BP 107/72 Intake Visit Reasons: 2 week post-op Supervisor Metalizing Required: No Is patient in pain?: No [...] 3 current occupational status: employed current occupation: [employer] Smoking Status: Current every day smoker tobacco type: cigarettes and e-cigarettes do you feel safe at home: Yes additional social history: Boyfriend - Terence [facility] 2 week post-op Details: LM ALVARADO is [...] Weight [facility]ant [facility] FOB Unknown 1994 Vniod live - full term Unknown 1996 Araceli [...] with pa (more content not included)... Normal [facility] Surgery Visit Reporton 09-08 Surgery Visit Report [facility] [address] [place] [address] OFFICE VISIT Date of Service: 09/08/24 MR#: [id number] Acct: [id number] Name: LM ALVARADO Rep #: [id number] : 1975 Provider: Dr. Jak guillen MD Age/Sex: 49/F Location: [facility] Status: Signed Intake Vital Signs 09/03/24 [...] visits as well as scheduled visits with FLATBED PRESS OPERATOR. However, patient is somewhat relieved to [...] Care Code Global Post Op Diagnoses Seroma PFSH Medical History Wears glasses MRSA infection [...] 3 current occupational status: employed current occupation: [employer] Smoking Status: Current every day smoker tobacco [...] insertion. P (more content not included)... Normal [facility] Casing Flusher Office Visit Reporton 09-03-2024 Casing Flusher Office Visit Report [facility] [address], [address] [place] [address] OFFICE VISIT Date of Service: 09/03/24 MR#: [id number] Acct: [id number] Name: LM ALVARADO Rep #: [id number] : 1975 Provider: Dr. Treasure viera MD Age/Sex: 49/F [place] [facility] [place]: Signed Intake Vital Signs 08/30/24 11:07 09/03/24 09:26 09/03/24 09:32 Height 5 ft 4 in 5 ft 4 in 5 ft 4 in Weight: 120 lb 8 oz BMI 20.7 BP 113/70 Intake Visit Reasons: Significant post-op pain still Supervisor Metalizing Required: No Is patient in pain?: Yes [...] 3 current occupational status: employed current occupation: [employer] Smoking Status: Current every day smoker tobacco type: cigarettes and e-cigarettes do you feel safe at home: Yes additional social history: Boyfriend - Terence HPI Significant post-op pain still Details: LM ALVARADO [...] Weight [facility] FOB Unknown 1994 Vinod live - [...] encounter Plan (more content not included)... Normal [facility] Absolute lymphocyte countOrd ered By: Love Emery on 08-30-2024 Lymphocytes Auto (Unsp spec) [#/Vol] 1.30 10*3/uL 0.83-4.51 [facility] Absolute neutrophil countOrd ered By: Love Emery on 08-30-2024 Neutrophils (Bld) [#/Vol] 5.5 10*3/uL 2.0-7.7 [facility] Anion gap in Serum or Plasma Ordered By: Love Emery on 08-30-2024 Anion gap [Moles/Vol] 9 mmol/L 5- [facility] Automated lymphocyte count a s percentage of total leukocytesOrdered By: Love Emery on 08-30-2024 Lymphocytes/100 WBC Auto (Unsp spec) 17.4 % Low 19-41 [facility] BUN/creatinine ratioOrdered By: Lovekatiana Emery on 08-30-2024 Urea nitrogen/Creatinine [Mass ratio] 12.6 mg/mg - [facility] Basic Metabolic Profile (BMP )on 08-30-2024 BUN/CRE 12.6 RATIO Normal - [facility] Comment on above: Performed By: #### L 500.2500, L100.0100 #### [facility] [address] [place], [address] Calcium [Mass/Vol] 8.9 mg/dL Normal 7.6-11.0 [facility] Comment on above: Performed By: #### L 500.2500, L100.0100 #### [facility] [address] [place], [address] Chloride [Moles/Vol] 105 mmol/L Normal 98-108 [facility] Comment on above: Performed By: #### L 500.2500, L100.0100 #### [facility] [address] [place], [address] CO2 [Moles/Vol] 25.8 mmol/L Normal 21.0-32.0 [facility] Comment on above: Performed By: #### L 500.2500, L100.0100 #### [facility] [address] [place], [address] Creatinine [Mass/Vol] 0.76 mg/dL Normal 0.70-1.20 [facility] Comment on above: Performed By: #### L 500.2500, L100.0100 #### [facility] [address] [place], [address] ECRCL 77.32 ml/min Normal 50-250 [facility] Comment on above: Performed By: #### L 500.2500, L100.0100 #### [facility] [address] [place], [address] GAP 9 Normal 5-15 [facility] Comment on above: Performed By: #### L 500.2500, L100.0100 #### [facility] [address] [place], [address] GFR/1.73 sq M.predicted among non-blacks MDRD (S/P/Bld) [Vol rate/Area] 96 mL/min/{1.73_m2} Normal >60 [facility] Comment on above: Result Comment: mL/m in/1.73m2 CKD-EPI Creatinine Equation (2020) Performed By: #### L 500.2500, L100.0100 #### [facility] [address] [place], [address] Glucose [Mass/Vol] 87 mg/dL Normal 70-99 [facility] Comment on above: Performed By: #### L 500.2500, L100.0100 #### [facility] [address] [place], [address] Potassium [Moles/Vol] 4.3 mmol/L Normal 3.3-5.1 [facility] Comment on above: Result Comment: Hemo lysis present, Results??could be affected. ?? Performed By: #### L 500.2500, L100.0100 #### [facility] [address] [place], [address] Sodium [Moles/Vol] 140 mmol/L Normal 133-145 [facility] Comment on above: Performed By: #### L 500.2500, L100.0100 #### [facility] [address] [place], [address] Urea nitrogen [Mass/Vol] 10 mg/dL Normal 4-19 [facility] Comment on above: Performed By: #### L 500.2500, L100.0100 #### [facility] [address] [place], [address] Basophil percentageOrdered B y: Love Emery on 08-30-2024 Basophils/100 WBC (Bld) 0.3 % 0-1 [facility] Bilirubin Test strip Ql (U)O rdered By: Love Emery on 08-30-2024 Bilirubin Ql (U) Negative Negative [facility] CBC W/Diff, Automatedon 08-07 Absolute Lymph 1.30 X10 3/uL Normal 0.83-4.51 [facility] Comment on above: Performed By: #### L 500.2500, L100.0100 #### [facility] [address] [place], [address] Absolute Neut 5.5 X10 3/uL Normal 2.0-7.7 [facility] Comment on above: Performed By: #### L 500.2500, L100.0100 #### [facility] [address] [place], [address] Basophils/100 WBC (Bld) 0.3 % Normal 0-1 [facility] Comment on above: Performed By: #### L 500.2500, L100.0100 #### [facility] [address] [place], [address] Eosinophils/100 WBC (Bld) 1.9 % Normal 0-5 [facility] Comment on above: Performed By: #### L 500.2500, L100.0100 #### [facility] [address] [place], [address] Erythrocyte distribution width (RBC) [Ratio] 13.0 % Normal 11.6-14.6 [facility] Comment on above: Performed By: #### L 500.2500, L100.0100 #### [facility] [address] [place], [address] Hematocrit (Bld) [Volume fraction] 33.5 % Low 37-47 [facility] Comment on above: Performed By: #### L 500.2500, L100.0100 #### [facility] [address] [place], [address] Hemoglobin (Bld) [Mass/Vol] 11.8 g/dL Low 12.0-15.0 [facility] Comment on above: Performed By: #### L 500.2500, L100.0100 #### [facility] [address] [place], [address] IG% 0.300 Normal 0.0-0.9 [facility] Comment on above: Result Comment: IG% - Immature Granulocytes (promyelocytes, myelocytes and metamyelocytes) > 1% indicates that a LEFT SHIFT is Present. Performed By: #### L 500.2500, L100.0100 #### [facility] [address] [place], [address] Lymphocytes/100 WBC (Bld) 17.4 % Low 19-41 [facility] Comment on above: Performed By: #### L 500.2500, L100.0100 #### [facility] [address] [place], [place], [address] MCH (RBC) [Entitic mass] 32.8 pg High 27.0-32.0 [facility] Comment on above: Performed By: #### L 500.2500, L100.0100 #### [facility] [address] [place], [address] MCHC (RBC) [Mass/Vol] 35.2 g/dL Normal 32-36 [facility] Comment on above: Performed By: #### L 500.2500, L100.0100 #### [facility] [address] [place], [address] MCV (RBC) [Entitic vol] 93.1 fL Normal 81-99 [facility] Comment on above: Performed By: #### L 500.2500, L100.0100 #### [facility] [address] [place], [address] Monocytes/100 WBC (Bld) 6.7 % Normal 0-10 [facility] Comment on above: Performed By: #### L 500.2500, L100.0100 #### [facility] [address] [place], [address] Neutrophils/100 WBC (Bld) 73.4 % High 47-70 [facility] Comment on above: Performed By: #### L 500.2500, L100.0100 #### [facility] [address] [place], [address] Nucleated RBC (Bld) [#/Vol] 0 10*3/uL Normal 0-5 [facility] Comment on above: Performed By: #### L 500.2500, L100.0100 #### [facility] [address] [place], [address] Platelet mean volume (Bld) [Entitic vol] 10.0 fL Normal 6.2-12.0 [facility] Comment on above: Performed By: #### L 500.2500, L100.0100 #### [facility] [address] [place], [address] Platelets (Bld) [#/Vol] 249 10*3/uL Normal 150-450 [facility] Comment on above: Performed By: #### L 500.2500, L100.0100 #### [facility] [address] [place], [address] RBC (Bld) [#/Vol] 3.60 10*6/uL Low 4.2-5.4 [facility] Comment on above: Performed By: #### L 500.2500, L100.0100 #### [facility] [address] [place], [address] RDW SD 44.6 fl High 35.1-43.9 [facility] Comment on above: Performed By: #### L 500.2500, L100.0100 #### [facility] [address] [place], [address] WBC (Bld) [#/Vol] 7.5 10*3/uL Normal 4.4-11.0 [facility] Comment on above: Performed By: #### L 500.2500, L100.0100 #### [facility] [address] [place], [address] Carbon dioxide, total [Moles /volume] in Central venous bloodOrdered By: Love Emery on 08-30-2024 CO2 [Moles/Vol] 25.8 mmol/L 21.0-32.0 [facility] Chloride assayOrdered By: Carlos Emery on 08-30-2024 Chloride [Moles/Vol] 105 mmol/L 98-108 [facility] Emergency Department Summary on 08-30-2024 Emergency Department Summary [facility] Medical Records Department [address] [place] [address] Emergency Department Summary 08/30/24 MR#: [id number] Acct: [id number] Name: LM ALVARADO Rep #: [id number] : 1975 49 From: Love Emery DO [...] stable. No leukocytosis. Case was discussed with [employer]. Plan for outpatient follow-up this coming Saturday. Discharged home. [facility] Medical History Wears glasses MRSA infection Bipolar [...] 3 current occupational status: employed current occupation: [employer] Smoking Status: Current every day smoker tobacco type: cigarettes and e-cigarettes do you feel safe at home: Yes additional social history: Boyfriend - Terence EAMON ROS ED Constitutional Constitutional ED: Denies chills [...] Psychiatric Psychiatric (more content not included)... Normal [facility] Eosinophil percentageOrdered By: Love Emery on 08-30-2024 Eosinophils/100 WBC (Bld) 1.9 % 0-5 [facility] Erythrocyte distribution wid th ratioOrdered By: Lovekatiana Emery on 08-30-2024 Erythrocyte distribution width (RBC) [Ratio] 13.0 % 11.6-14.6 [facility] Erythrocyte distribution wid th standard deviationOrdered By: Love Emery on 08-30-2024 Erythrocyte distribution width (RBC) [Ratio] 44.6 fl High 35.1-43.9 [facility] Glomerular filtration rate ( GFR) estimation/1.73 sq m using serum, plasma, or whole bOrdered By: Love Emery on 08-30-2024 GFR/1.73 sq M.predicted among non-blacks MDRD (S/P/Bld) [Vol rate/Area] 96 mL/min/{1.73_m2} >60 [facility] Comment on above: mL/min/1.73m2 CKD-EP I Creatinine Equation (2020) Hematocrit Auto (Bld) [Volum e fraction]Ordered By: Love Emery on 08-30-2024 Hematocrit (Bld) [Volume fraction] 33.5 % Low 37-47 [facility] Hemoglobin measurementOrdere d By: Love Emery on 08-30-2024 Hemoglobin (Bld) [Mass/Vol] 11.8 g/dL Low 12.0-15.0 [facility] Immature granulocytes/100 WB C Auto (Bld)Ordered By: Love Emery on 08-30-2024 Immature granulocytes/100 WBC (Bld) 0.300 % 0.0-0.9 [facility] Comment on above: IG% - Immature Granu locytes (promyelocytes, myelocytes and metamyelocytes) > 1% indicates that a LEFT SHIFT is Present. Ketones Test strip Ql (U)Ord ered By: Love Emery on 08-30-2024 Ketones Ql (U) Negative Negative [facility] MCV (mean corpuscular volume ) determinationOrdered By: Love Emery on 08-30-2024 MCV (RBC) [Entitic vol] 93.1 fL 81-99 [facility] Mean corpuscular hemoglobin (MCH) determinationOrdered By: Love Emery on 08-30-2024 MCH (RBC) [Entitic mass] 32.8 pg High 27.0-32.0 [facility] Mean corpuscular hemoglobin concentration (MCHC) determinationOrdered By: Love Emery on 08-30-2024 MCHC (RBC) [Mass/Vol] 35.2 g/dL 32-36 [facility] Comment on above: Delta: 33.4 on 08/28-1157 Mean platelet volume determi nationOrdered By: Love Emery on 08-30-2024 Platelet mean volume (Bld) [Entitic vol] 10.0 fL 6.2-12.0 [facility] Microscopic analysis of urin e for red blood cells (RBC)Ordered By: Love Emery on 08-30-2024 Microscopic analysis of urine for red blood cells (RBC) 0 SEEN /hpf 0-5 [facility] Monocyte percentageOrdered B y: Love Emery on 08-30-2024 Monocytes/100 WBC (Bld) 6.7 % 0-10 [facility] Mucus LM Ql (Urine sed)Order ed By: Love Emery on 08-30-2024 Mucus Ql (Urine sed) 0 SEEN /hpf [facility] Neutrophil percentageOrdered By: Love Emery on 08-30-2024 Neutrophils/100 WBC (Bld) 73.4 % High 47-70 [facility] Nitrite Test strip Ql (U)Ord ered By: Love Emery on 08-30-2024 Nitrite Ql (U) Negative Negative [facility] Nucleated red blood cell per centageOrdered By: Love Emery on 08-30-2024 Nucleated RBC/100 WBC (Bld) [Ratio] 0 % 0-5 [facility] Pelvis WITH IV Contraston Pelvis WITH IV Contrast [facility] Imaging Services [address] [place], [place] [address] Pelvis WITH IV Contrast MR#: [id number] Acct: [id number] Name: LM ALVARADO Rep #: [id number] : 1975 F 49 From: Carlos Berumen DO PCP: Care Physician,No Primary Status: REG ER Study: Pelvis WITH IV Contrast Date of Exam: 08/30/24 Exam# [id number] Ordering Dr: Love Emery DO PROCEDURE: PELVIS WITH IV CONTRAST [...] fluid deep in the pelvis [facility] CC: Dr. Love Emery, DO; No Primary Care Physician Transportation Program Director: Signed Normal [facility] Platelet countOrdered By: Carlos Emery on 08-30-2024 Platelets (Bld) [#/Vol] 249 10*3/uL 150-450 [facility] Potassium measurement (mass/ volume)Ordered By: Love Emery on 08-30-2024 Potassium (Unsp spec) [Mass/Vol] 4.3 mmol/L 3.3-5.1 [facility] Comment on above: Hemolysis present, R esults could be affected. Protein Test strip Ql (U)Ord ered By: Love Emery on 08-30-2024 Protein Ql (U) 15 mg/dl High Negative [facility] RBC Auto (Bld) [#/Vol]Ordere d By: Love Emery on 08-30-2024 RBC (Bld) [#/Vol] 3.60 10*6/uL Low 4.2-5.4 [facility] Serum creatinine measurement (mass/volume)Ordered By: Love Emery on 08-30-2024 Creatinine [Mass/Vol] 0.76 mg/dL 0.70-1.20 [facility] Serum glucose measurement (m ass/volume)Ordered By: Love Emery on 08-30-2024 Glucose [Mass/Vol] 87 mg/dL 70-99 [facility] Serum or plasma calcium dev urement (mass/volume)Ordered By: Love Emery on 08-30-2024 Calcium [Mass/Vol] 8.9 mg/dL 7.6-11.0 [facility] Serum or plasma urea nitroge n measurement (mass/volume)Ordered By: Love Emery on 08-30-2024 Urea nitrogen [Mass/Vol] 10 mg/dL 4-19 [facility] Sodium levelOrdered By: Adam Emery on 08-30-2024 Sodium [Moles/Vol] 140 mmol/L 133-145 [facility] Squamous epithelial cells de tection in urine sediment by light microscopyOrdered By: Love Emery on 08-30-2024 Epithelial cells.squamous LM Ql (Urine sed) 5-10 SEEN /hpf 5-10 [facility] Urinalysis, Completeon 08-30 TRICHOMONAS 0-5 SEEN Normal None Seen [facility] Comment on above: Order Comment: CLEAN CATCH Performed By: #### L 400.0001 #### [facility] [address] [place], [address] BACTERIA 1+ /hpf Normal None Seen [facility] Comment on above: Order Comment: CLEAN CATCH Performed By: #### L 400.0001 #### [facility] [address] [place], [address] EPI,SQUAMOUS 5-10 SEEN Normal 5-10 [facility] Comment on above: Order Comment: CLEAN CATCH Performed By: #### L 400.0001 #### [facility] [address] [place], [address] WBC 0-5 SEEN Normal 0-5 [facility] Comment on above: Order Comment: CLEAN CATCH Performed By: #### L 400.0001 #### [facility] [address] [place], [address] Mucus Ql (Urine sed) 0 SEEN Normal [facility] Comment on above: Order Comment: CLEAN CATCH Performed By: #### L 400.0001 #### [facility] [address] [place], [address] RBC 0 SEEN Normal 0-5 [facility] Comment on above: Order Comment: CLEAN CATCH Performed By: #### L 400.0001 #### [facility] [address] [place], [address] Urine clarityOrdered By: Kajal Emery on 08-30-2024 Clarity (U) Sl. Cloudy Clear [facility] Urine color determinationOrd ered By: Love Emery on 08-30-2024 Color (U) Yellow Yellow [facility] Urine glucose detectionOrder ed By: Love Emery on 08-30-2024 Glucose Ql (U) Normal mg/dl Normal [facility] Urine leukocyte esterase det ection by dipstickOrdered By: Love Emery on 08-30-2024 Leukocyte esterase Test strip Ql (U) 25 /ul High Negative [facility] Urine pHOrdered By: Love reid on 08-30-2024 pH (U) 8.0 [pH] 5.0 - 8.0 [facility] Urine sediment Trichomonas s pecies count by microscopy (number/low power field)Ordered By: Love Emery on 08-30-2024 Trichomonas sp LM.LPF (Urine sed) [#/Area] 0-5 SEEN /hpf None Seen [facility] Urine sediment bacteria coun t by microscopy (number/high power field)Ordered By: Love Emery on 08-30-2024 Bacteria LM.HPF (Urine sed) [#/Area] 1 /[HPF] None Seen [facility] Urine specific gravity measu rementOrdered By: Love Emery on 08-30-2024 Specific gravity (U) [Rel density] 1.010 1.002-1.030 [facility] Urine urobilinogen measureme ntOrdered By: Love Emery on 08-30-2024 Urobilinogen Ql (U) Normal mg/dl Normal [facility] White blood cell (WBC) count Ordered By: Love Emery on 08-30-2024 WBC (Bld) [#/Vol] 7.5 10*3/uL 4.4-11.0 [facility] White blood cell countOrdere d By: Love Emery on 08-30-2024 White blood cell count 0-5 SEEN /hpf 0-5 [facility] Abdomen/Pelvis W IV Cont ONL Yon 08-28-2024 Abdomen/Pelvis W IV Cont ONLY [facility] Imaging Services [address] [place] [address] Abdomen/Pelvis W IV Cont ONLY MR#: [id number] Acct: [id number] Name: MARIA TCHELSEAROSANNA Rep #: [id number] : 1975 F 49 From: Chandler Marshall MD PCP: Care Physician,No Primary Status: REG ER Study: Abdomen/Pelvis W IV Cont ONLY Date of Exam: Exam# [id number] Ordering Dr: Rik Marshall DO EXAM: CT [...] consistent with constipation. Reading Location: [facility] CC: Dr. Rik Marshall, DO; No Primary Care Physician Transportation Program Director: Signed Normal [facility] Absolute lymphocyte countOrd ered By: Rik Marshall on 08-28-2024 Lymphocytes Auto (Unsp spec) [#/Vol] 2.00 10*3/uL 0.83-4.51 [facility] Absolute neutrophil countOrd ered By: Rik Marshall on 08-28-2024 Neutrophils (Bld) [#/Vol] 3.4 10*3/uL 2.0-7.7 [facility] Anion gap in Serum or Plasma Ordered By: Rik Marshall on 08-28-2024 Anion gap [Moles/Vol] 9 mmol/L 5- [facility] Automated lymphocyte count a s percentage of total leukocytesOrdered By: Rik Marshall on 08-28-2024 Lymphocytes/100 WBC Auto (Unsp spec) 33.3 % 19-41 [facility] BUN/creatinine ratioOrdered By: Rik Marshall on 08-28-2024 Urea nitrogen/Creatinine [Mass ratio] 12.7 mg/mg 10- [facility] Basic Metabolic Profile (BMP )on 08-28-2024 BUN/CRE 12.7 RATIO Normal - [facility] Comment on above: Performed By: #### L 100.0100, L500.2500 #### [facility] [address] [place], [address] Calcium [Mass/Vol] 9.0 mg/dL Normal 7.6-11.0 [facility] Comment on above: Performed By: #### L 100.0100, L500.2500 #### [facility] [address] [place], [address] Chloride [Moles/Vol] 103 mmol/L Normal 98-108 [facility] Comment on above: Performed By: #### L 100.0100, L500.2500 #### [facility] [address] [place], [address] CO2 [Moles/Vol] 27.8 mmol/L Normal 21.0-32.0 [facility] Comment on above: Performed By: #### L 100.0100, L500.2500 #### [facility] [address] [place], [address] Creatinine [Mass/Vol] 0.74 mg/dL Normal 0.70-1.20 [facility] Comment on above: Performed By: #### L 100.0100, L500.2500 #### [facility] [address] [place], [address] ECRCL 79.41 ml/min Normal 50-250 [facility] Comment on above: Performed By: #### L 100.0100, L500.2500 #### [facility] [address] [place], [address] GAP 9 Normal 5-15 [facility] Comment on above: Performed By: #### L 100.0100, L500.2500 #### [facility] [address] [place], [address] GFR/1.73 sq M.predicted among non-blacks MDRD (S/P/Bld) [Vol rate/Area] 99 mL/min/{1.73_m2} Normal >60 [facility] Comment on above: Result Comment: mL/m in/1.73m2 CKD-EPI Creatinine Equation (2020) Performed By: #### L 100.0100, L500.2500 #### [facility] [address] [place], [address] Glucose [Mass/Vol] 86 mg/dL Normal 70-99 [facility] Comment on above: Performed By: #### L 100.0100, L500.2500 #### [facility] [address] [place], [address] Potassium [Moles/Vol] 3.6 mmol/L Normal 3.3-5.1 [facility] Comment on above: Performed By: #### L 100.0100, L500.2500 #### [facility] [address] [place], [address] Sodium [Moles/Vol] 140 mmol/L Normal 133-145 [facility] Comment on above: Performed By: #### L 100.0100, L500.2500 #### [facility] [address] [place], [address] Urea nitrogen [Mass/Vol] 9 mg/dL Normal 4-19 [facility] Comment on above: Performed By: #### L 100.0100, L500.2500 #### [facility] [address] [place], [address] Basophil percentageOrdered B y: Rik Joanna on 08-28-2024 Basophils/100 WBC (Bld) 0.2 % 0-1 [facility] CBC W/Diff, Automatedon 08-07 Absolute Lymph 2.00 X10 3/uL Normal 0.83-4.51 [facility] Comment on above: Performed By: #### L 100.0100, L500.2500 #### [facility] [address] [place], [address] Absolute Neut 3.4 X10 3/uL Normal 2.0-7.7 [facility] Comment on above: Performed By: #### L 100.0100, L500.2500 #### [facility] [address] [place], [address] Basophils/100 WBC (Bld) 0.2 % Normal 0-1 [facility] Comment on above: Performed By: #### L 100.0100, L500.2500 #### [facility] [address] [place], [address] Eosinophils/100 WBC (Bld) 1.2 % Normal 0-5 [facility] Comment on above: Performed By: #### L 100.0100, L500.2500 #### [facility] [address] [place], [address] Erythrocyte distribution width (RBC) [Ratio] 13.1 % Normal 11.6-14.6 [facility] Comment on above: Performed By: #### L 100.0100, L500.2500 #### [facility] [address] [place], [address] Hematocrit (Bld) [Volume fraction] 34.4 % Low 37-47 [facility] Comment on above: Performed By: #### L 100.0100, L500.2500 #### [facility] [address] [place], [address] Hemoglobin (Bld) [Mass/Vol] 11.5 g/dL Low 12.0-15.0 [facility] Comment on above: Performed By: #### L 100.0100, L500.2500 #### [facility] [address] [place], [address] IG% 0.300 Normal 0.0-0.9 [facility] Comment on above: Result Comment: IG% - Immature Granulocytes (promyelocytes, myelocytes and metamyelocytes) > 1% indicates that a LEFT SHIFT is Present. Performed By: #### L 100.0100, L500.2500 #### [facility] [address] [place], [address] Lymphocytes/100 WBC (Bld) 33.3 % Normal 19-41 [facility] Comment on above: Performed By: #### L 100.0100, L500.2500 #### [facility] [address] [place], [address] MCH (RBC) [Entitic mass] 31.8 pg Normal 27.0-32.0 [facility] Comment on above: Performed By: #### L 100.0100, L500.2500 #### [facility] [address] [place], [address] MCHC (RBC) [Mass/Vol] 33.4 g/dL Normal 32-36 [facility] Comment on above: Performed By: #### L 100.0100, L500.2500 #### [facility] [address] [place], [address] MCV (RBC) [Entitic vol] 95.0 fL Normal 81-99 [facility] Comment on above: Performed By: #### L 100.0100, L500.2500 #### [facility] [address] [place], [address] Monocytes/100 WBC (Bld) 7.8 % Normal 0-10 [facility] Comment on above: Performed By: #### L 100.0100, L500.2500 #### [facility] [address] [place], [address] Neutrophils/100 WBC (Bld) 57.2 % Normal 47-70 [facility] Comment on above: Performed By: #### L 100.0100, L500.2500 #### [facility] [address] [place], [address] Nucleated RBC (Bld) [#/Vol] 0 10*3/uL Normal 0-5 [facility] Comment on above: Performed By: #### L 100.0100, L500.2500 #### [facility] [address] [place], [address] Platelet mean volume (Bld) [Entitic vol] 9.8 fL Normal 6.2-12.0 [facility] Comment on above: Performed By: #### L 100.0100, L500.2500 #### [facility] [address] [place], [address] Platelets (Bld) [#/Vol] 219 10*3/uL Normal 150-450 [facility] Comment on above: Performed By: #### L 100.0100, L500.2500 #### [facility] [address] [place], [address] RBC (Bld) [#/Vol] 3.62 10*6/uL Low 4.2-5.4 [facility] Comment on above: Performed By: #### L 100.0100, L500.2500 #### [facility] [address] [place], [address] RDW SD 46.3 fl High 35.1-43.9 [facility] Comment on above: Performed By: #### L 100.0100, L500.2500 #### [facility] [address] [place], [address] WBC (Bld) [#/Vol] 6.0 10*3/uL Normal 4.4-11.0 [facility] Comment on above: Performed By: #### L 100.0100, L500.2500 #### [facility] [address] [place], [address] Carbon dioxide, total [Moles /volume] in Central venous bloodOrdered By: Rik Marshall on 08-28-2024 CO2 [Moles/Vol] 27.8 mmol/L 21.0-32.0 [facility] Chloride assayOrdered By: Julian Marshall on 08-28-2024 Chloride [Moles/Vol] 103 mmol/L 98-108 [facility] Emergency Department Summary on 08-28-2024 Emergency Department Summary [facility] Medical Records Department [address] [place] [address] Emergency Department Summary 08/28/24 MR#: [id number] Acct: [id number] Name: LM ALVARADO Rep #: [id number] : 1975 49 From: Rik Abdalla PCP: [...] taken 3 hours ago. 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 Reports the area of postop surgery has not worsened. [facility] Medical History Wears glasses MRSA infection Bipolar [...] 3 current occupational status: employed current occupation: [employer] Smoking Status: Current every day smoker tobacco type: cigarettes and e-cigarettes do you feel safe at home: Yes additional social history: Boyfriend - Terence KNUTSON ROS ED Constitutional Constitutional ED: Denies fever(s) [...] narrative: Interventio (more content not included)... Normal [facility] Eosinophil percentageOrdered By: Rik Marshall on 08-28-2024 Eosinophils/100 WBC (Bld) 1.2 % 0-5 [facility] Erythrocyte distribution wid th ratioOrdered By: Rik Marshall on 08-28-2024 Erythrocyte distribution width (RBC) [Ratio] 13.1 % 11.6-14.6 [facility] Erythrocyte distribution wid th standard deviationOrdered By: Rik Marshall on 08-28-2024 Erythrocyte distribution width (RBC) [Ratio] 46.3 fl High 35.1-43.9 [facility] Glomerular filtration rate ( GFR) estimation/1.73 sq m using serum, plasma, or whole bOrdered By: Rik Marshall on 08-28-2024 GFR/1.73 sq M.predicted among non-blacks MDRD (S/P/Bld) [Vol rate/Area] 99 mL/min/{1.73_m2} >60 [facility] Comment on above: mL/min/1.73m2 CKD-EP I Creatinine Equation (2020) Hematocrit Auto (Bld) [Volum e fraction]Ordered By: Rik Marshall on 08-28-2024 Hematocrit (Bld) [Volume fraction] 34.4 % Low 37-47 [facility] Hemoglobin measurementOrdere d By: Rik Marshall on 08-28-2024 Hemoglobin (Bld) [Mass/Vol] 11.5 g/dL Low 12.0-15.0 [facility] Immature granulocytes/100 WB C Auto (Bld)Ordered By: Rik Marshall on 08-28-2024 Immature granulocytes/100 WBC (Bld) 0.300 % 0.0-0.9 [facility] Comment on above: IG% - Immature Granu locytes (promyelocytes, myelocytes and metamyelocytes) > 1% indicates that a LEFT SHIFT is Present. MCV (mean corpuscular volume ) determinationOrdered By: Rik Marshall on 08-28-2024 MCV (RBC) [Entitic vol] 95.0 fL 81-99 [facility] Mean corpuscular hemoglobin (MCH) determinationOrdered By: Rik Marshall on 08-28-2024 MCH (RBC) [Entitic mass] 31.8 pg 27.0-32.0 [facility] Mean corpuscular hemoglobin concentration (MCHC) determinationOrdered By: Rik Marshall on 08-28-2024 MCHC (RBC) [Mass/Vol] 33.4 g/dL 32-36 [facility] Mean platelet volume determi nationOrdered By: Rik Marshall on 08-28-2024 Platelet mean volume (Bld) [Entitic vol] 9.8 fL 6.2-12.0 [facility] Monocyte percentageOrdered B y: Rik Marshall on 08-28-2024 Monocytes/100 WBC (Bld) 7.8 % 0-10 [facility] Neutrophil percentageOrdered By: Rik Marshall on 08-28-2024 Neutrophils/100 WBC (Bld) 57.2 % 47-70 [facility] Nucleated red blood cell per centageOrdered By: Rik Marshall on 08-28-2024 Nucleated RBC/100 WBC (Bld) [Ratio] 0 % 0-5 [facility] Platelet countOrdered By: Julian Marshall on 08-28-2024 Platelets (Bld) [#/Vol] 219 10*3/uL 150-450 [facility] Potassium measurement (mass/ volume)Ordered By: Rik Marshall on 08-28-2024 Potassium (Unsp spec) [Mass/Vol] 3.6 mmol/L 3.3-5.1 [facility] RBC Auto (Bld) [#/Vol]Ordere d By: Rik Marshall on 08-28-2024 RBC (Bld) [#/Vol] 3.62 10*6/uL Low 4.2-5.4 [facility] Serum creatinine measurement (mass/volume)Ordered By: Rik Marshall on 08-28-2024 Creatinine [Mass/Vol] 0.74 mg/dL 0.70-1.20 [facility] Serum glucose measurement (m ass/volume)Ordered By: Rik Marshall on 08-28-2024 Glucose [Mass/Vol] 86 mg/dL 70-99 [facility] Serum or plasma calcium dev urement (mass/volume)Ordered By: Rik Marshall on 08-28-2024 Calcium [Mass/Vol] 9.0 mg/dL 7.6-11.0 [facility] Serum or plasma urea nitroge n measurement (mass/volume)Ordered By: Rik Marshall on 08-28-2024 Urea nitrogen [Mass/Vol] 9 mg/dL 4-19 [facility] Sodium levelOrdered By: Rik Marshall on 08-28-2024 Sodium [Moles/Vol] 140 mmol/L 133-145 [facility] White blood cell (WBC) count Ordered By: Rik Marshall on 08-28-2024 WBC (Bld) [#/Vol] 6.0 10*3/uL 4.4-11.0 [facility] CBC-Complete Blood Cnt No Di ffon 08-26-2024 Erythrocyte distribution width (RBC) [Ratio] 13.0 % Normal 11.6-14.6 [facility] Comment on above: Performed By: #### L 100.0500 #### [facility] [address] [place], [address] Hematocrit (Bld) [Volume fraction] 34.7 % Low 37-47 [facility] Comment on above: Performed By: #### L 100.0500 #### [facility] [address] [place], [address] Hemoglobin (Bld) [Mass/Vol] 12.0 g/dL Normal 12.0-15.0 [facility] Comment on above: Performed By: #### L 100.0500 #### [facility] [address] [place], [address] MCH (RBC) [Entitic mass] 32.0 pg Normal 27.0-32.0 [facility] Comment on above: Performed By: #### L 100.0500 #### [facility] [address] [place], [address] MCHC (RBC) [Mass/Vol] 34.6 g/dL Normal 32-36 [facility] Comment on above: Performed By: #### L 100.0500 #### [facility] [address] [place], [address] MCV (RBC) [Entitic vol] 92.5 fL Normal 81-99 [facility] Comment on above: Performed By: #### L 100.0500 #### [facility] [address] [place], [address] Platelet mean volume (Bld) [Entitic vol] 9.5 fL Normal 6.2-12.0 [facility] Comment on above: Performed By: #### L 100.0500 #### [facility] [address] [place], [address] Platelets (Bld) [#/Vol] 254 10*3/uL Normal 150-450 [facility] Comment on above: Performed By: #### L 100.0500 #### [facility] [address] [place], [address] RBC (Bld) [#/Vol] 3.75 10*6/uL Low 4.2-5.4 [facility] Comment on above: Performed By: #### L 100.0500 #### [facility] [address] [place], [address] RDW SD 44.1 fl High 35.1-43.9 [facility] Comment on above: Performed By: #### L 100.0500 #### [facility] [address] [place], [address] WBC (Bld) [#/Vol] 16.9 10*3/uL High 4.4-11.0 [facility] Comment on above: Performed By: #### L 100.0500 #### [facility] [address] [place], [address] Erythrocyte distribution wid th ratioOrdered By: Treasure Cardoso on 08-26-2024 Erythrocyte distribution width (RBC) [Ratio] 13.0 % 11.6-14.6 [facility] Erythrocyte distribution wid th standard deviationOrdered By: Treasure Cardoso on 08-26-2024 Erythrocyte distribution width (RBC) [Ratio] 44.1 fl High 35.1-43.9 [facility] Hematocrit Auto (Bld) [Volum e fraction]Ordered By: Treasure Cardoso on 08-26-2024 Hematocrit (Bld) [Volume fraction] 34.7 % Low 37-47 [facility] Hemoglobin measurementOrdere d By: Treasure Cardoso on 08-26-2024 Hemoglobin (Bld) [Mass/Vol] 12.0 g/dL 12.0-15.0 [facility] MCV (mean corpuscular volume ) determinationOrdered By: Treasure Cardoso on 08-26-2024 MCV (RBC) [Entitic vol] 92.5 fL 81-99 [facility] Mean corpuscular hemoglobin (MCH) determinationOrdered By: Treasure Cardoso on 08-26-2024 MCH (RBC) [Entitic mass] 32.0 pg 27.0-32.0 [facility] Mean corpuscular hemoglobin concentration (MCHC) determinationOrdered By: Treasure Cardoso on 08-26-2024 MCHC (RBC) [Mass/Vol] 34.6 g/dL 32-36 [facility] Mean platelet volume determi nationOrdered By: Treasure Cardoso on 08-26-2024 Platelet mean volume (Bld) [Entitic vol] 9.5 fL 6.2-12.0 [facility] Platelet countOrdered By: Rowan Cardoso on 08-26-2024 Platelets (Bld) [#/Vol] 254 10*3/uL 150-450 [facility] RBC Auto (Bld) [#/Vol]Ordere d By: Treasure Cardoso on 08-26-2024 RBC (Bld) [#/Vol] 3.75 10*6/uL Low 4.2-5.4 [facility] White blood cell (WBC) count Ordered By: Treasure Cardoso on 08-26-2024 WBC (Bld) [#/Vol] 16.9 10*3/uL High 4.4-11.0 [facility] Absolute lymphocyte countOrd ered By: Treasure Cardoso on 08-25-2024 Lymphocytes Auto (Unsp spec) [#/Vol] 0.97 10*3/uL 0.83-4.51 [facility] Absolute neutrophil countOrd ered By: Treasure Cardoso on 08-25-2024 Neutrophils (Bld) [#/Vol] 18.0 10*3/uL High 2.0-7.7 [facility] Activated partial thrombopla stin time (aPTT) in platelet poor plasma by coagulation aOrdered By: Treasure Cardoso on 08-25-2024 aPTT Coag (PPP) [Time] 30.8 s 24.1-36.2 [facility] Automated lymphocyte count a s percentage of total leukocytesOrdered By: Treasure Cardoso on 08-25-2024 Lymphocytes/100 WBC Auto (Unsp spec) 5.0 % Low 19-41 [facility] Basophil percentageOrdered B y: Treasure Cardoso on 08-25-2024 Basophils/100 WBC (Bld) 0.3 % 0-1 [facility] CBC W/Diff, Automatedon 08-07-2024 Absolute Lymph 0.97 X10 3/uL Normal 0.83-4.51 [facility] Comment on above: Performed By: #### L 500.2500, L100.0100 #### [facility] [address] [facility] [place], [address] Absolute Neut 18.0 X10 3/uL High 2.0-7.7 [facility] Comment on above: Performed By: #### L 500.2500, L100.0100 #### [facility] [address] [place], [address] Basophils/100 WBC (Bld) 0.3 % Normal 0-1 [facility] Comment on above: Performed By: #### L 500.2500, L100.0100 #### [facility] [address] [facility] [place], [address] Eosinophils/100 WBC (Bld) 0.0 % Normal 0-5 [facility] Comment on above: Performed By: #### L 500.2500, L100.0100 #### [facility] [address] [facility] [place], [address] Erythrocyte distribution width (RBC) [Ratio] 13.1 % Normal 11.6-14.6 [facility] Comment on above: Performed By: #### L 500.2500, L100.0100 #### [facility] [address] [place], [address] Hematocrit (Bld) [Volume fraction] 39.0 % Normal 37-47 [facility] Comment on above: Performed By: #### L 500.2500, L100.0100 #### [facility] [address] [place], [address] Hemoglobin (Bld) [Mass/Vol] 13.5 g/dL Normal 12.0-15.0 [facility] Comment on above: Performed By: #### L 500.2500, L100.0100 #### [facility] [address] [place], [address] IG% 0.600 Normal 0.0-0.9 [facility] Comment on above: Result Comment: IG% - Immature Granulocytes (promyelocytes, myelocytes and metamyelocytes) > 1% indicates that a LEFT SHIFT is Present. Performed By: #### L 500.2500, L100.0100 #### [facility] [address] [place], [address] Lymphocytes/100 WBC (Bld) 5.0 % Low 19-41 [facility] Comment on above: Performed By: #### L 500.2500, L100.0100 #### [facility] [address] [place], [address] MCH (RBC) [Entitic mass] 32.2 pg High 27.0-32.0 [facility] Comment on above: Performed By: #### L 500.2500, L100.0100 #### [facility] [address] [place], [address] MCHC (RBC) [Mass/Vol] 34.6 g/dL Normal 32-36 [facility] Comment on above: Performed By: #### L 500.2500, L100.0100 #### [facility] [address] [place], [address] MCV (RBC) [Entitic vol] 93.1 fL Normal 81-99 [facility] Comment on above: Performed By: #### L 500.2500, L100.0100 #### [facility] [address] [place], [address] Monocytes/100 WBC (Bld) 0.9 % Normal 0-10 [facility] Comment on above: Performed By: #### L 500.2500, L100.0100 #### [facility] [address] [place], [address] Neutrophils/100 WBC (Bld) 93.2 % High 47-70 [facility] Comment on above: Performed By: #### L 500.2500, L100.0100 #### [facility] [address] [place], [address] Nucleated RBC (Bld) [#/Vol] 0 10*3/uL Normal 0-5 [facility] Comment on above: Performed By: #### L 500.2500, L100.0100 #### [facility] [address] [place], [address] Platelet mean volume (Bld) [Entitic vol] 9.6 fL Normal 6.2-12.0 [facility] Comment on above: Performed By: #### L 500.2500, L100.0100 #### [facility] [address] [place], [address] Platelets (Bld) [#/Vol] 236 10*3/uL Normal 150-450 [facility] Comment on above: Performed By: #### L 500.2500, L100.0100 #### [facility] [address] [place], [address] RBC (Bld) [#/Vol] 4.19 10*6/uL Low 4.2-5.4 [facility] Comment on above: Performed By: #### L 500.2500, L100.0100 #### [facility] [address] [place], [address] RDW SD 44.6 fl High 35.1-43.9 [facility] Comment on above: Performed By: #### L 500.2500, L100.0100 #### [facility] [address] [place], [address] WBC (Bld) [#/Vol] 19.3 10*3/uL High 4.4-11.0 [facility] Comment on above: Performed By: #### L 500.2500, L100.0100 #### [facility] [address] [place], [address] CBC-Complete Blood Cnt No Di ffon 08-25-2024 Erythrocyte distribution width (RBC) [Ratio] 13.0 % Normal 11.6-14.6 [facility] Comment on above: Performed By: #### L 500.2500, L100.0100 #### [facility] [address] [place], [address] Hematocrit (Bld) [Volume fraction] 39.3 % Normal 37-47 [facility] Comment on above: Performed By: #### L 500.2500, L100.0100 #### [facility] [address] [place], [address] Hemoglobin (Bld) [Mass/Vol] 13.5 g/dL Normal 12.0-15.0 [facility] Comment on above: Performed By: #### L 500.2500, L100.0100 #### [facility] [address] [place], [address] MCH (RBC) [Entitic mass] 32.1 pg High 27.0-32.0 [facility] Comment on above: Performed By: #### L 500.2500, L100.0100 #### [facility] [address] [place], [address] MCHC (RBC) [Mass/Vol] 34.4 g/dL Normal 32-36 [facility] Comment on above: Performed By: #### L 500.2500, L100.0100 #### [facility] [address] [place], [address] MCV (RBC) [Entitic vol] 93.3 fL Normal 81-99 [facility] Comment on above: Performed By: #### L 500.2500, L100.0100 #### [facility] [address] [place], [address] Platelet mean volume (Bld) [Entitic vol] 9.5 fL Normal 6.2-12.0 [facility] Comment on above: Performed By: #### L 500.2500, L100.0100 #### [facility] [address] [place], [address] Platelets (Bld) [#/Vol] 255 10*3/uL Normal 150-450 [facility] Comment on above: Performed By: #### L 500.2500, L100.0100 #### [facility] [address] [place], [address] RBC (Bld) [#/Vol] 4.21 10*6/uL Normal 4.2-5.4 [facility] Comment on above: Performed By: #### L 500.2500, L100.0100 #### [facility] [address] [place], [address] RDW SD 44.2 fl High 35.1-43.9 [facility] Comment on above: Performed By: #### L 500.2500, L100.0100 #### [facility] [address] [place], [address] WBC (Bld) [#/Vol] 20.3 10*3/uL High 4.4-11.0 [facility] Comment on above: Performed By: #### L 500.2500, L100.0100 #### [facility] [address] [place], [address] Discharge Instructionon 08-07 Discharge Instruction [facility] Medical Records Department [address] [place] [address] Instructions for Home/Discharge Instructions 08/25/24 0747 MR#: [id number] Acct: [id number] Name: LM ALVARADO Rep #: [id number] : 1975 49 From: Treasure Cardoso MD PCP: Jenaro Physician,No Primary Status:REG SDC Discharge Instructions DC O2, CPAP, BIPAP needs Home O2 Discharge instructions: No Follow Up Care Test Results: Test results from this visit will be discussed in further detail at your follow-up appointment, if applicable. Discharge Plan Admission Attending Provider: Treasure Cardoso Primary Care Provider: Care Physician,No Primary Instructions Print Language: Azerbaijani Discharge Orders/Prescriptions Prescriptions: New naproxen 500 mg [...] CC: No Primary Care Physician Signed Normal [facility] Eosinophil percentageOrdered By: Treasure Cardoso on 08-25-2024 Eosinophils/100 WBC (Bld) 0.0 % 0-5 [facility] Fibrinogenon 08-25-2024 FIBRINOGEN 309 mg/dl Normal 203-444 [facility] Comment on above: Order Comment: Comme nts: STAT Performed By: #### L 300.4310, L300.4700, L300.3900 ####[facility] [id number] [place], [address] Immature granulocytes/100 WB C Auto (Bld)Ordered By: Treasure Cardoso on 08-25-2024 Immature granulocytes/100 WBC (Bld) 0.600 % 0.0-0.9 [facility] Comment on above: IG% - Immature Granu locytes (promyelocytes, myelocytes and metamyelocytes) > 1% indicates that a LEFT SHIFT is Present. International normalized rat io (INR) calculationOrdered By: Treausre Cardoso on 08-25-2024 INR Coag (Bld) [Relative time] 1.1 {INR} [facility] MR/POSTOP.ANEon 08-25-2024 MR/POSTOP.ANE [facility] Medical Records Department [address] [place] [address] Anesthesia Postop Eval I 08/25/242027 MR#: [id number] Acct: [id number] Name: LM ALVARADO Rep #: [id number] : 1975 49 From: Carmelo Mart MD PCP: Care Physician,No Primary Status:REG [facility] Y Race: C Location: [place] [address] Anesthesia: Postop Eval I Current Vital Signs [...] Eval 1 completed: Yes 08/25/242028 Date Carmelo Diez Signature: Date CC: Signed Normal [facility] MR/POSTOP.ANE [facility] Medical Records Department [address] [place] [address] Anesthesia Postop Eval I 08/25/241540 MR#: [id number] Acct: [id number] Name: LM ALVARADO Rep #: [id number] : 1975 49 From: Bisi Sanford PCP: Care Physician,No Primary Status:REG [facility] Y Race: C Location: [place] [address] Anesthesia: Postop Eval I Current Vital Signs [...] Anesthesia document: Postop Eval 1 completed: Yes 08/25/241540 Date Bisi Diez Signature: Date CC: Signed Normal [facility] MR/[id number] 08-25-2024 MR/POSTOPAN2 [facility] Medical Records Department [address] [place] [address] Anesthesia Postop Eval II 08/25/242029 MR#: [id number] Acct: [id number] Name: LM ALVARADO Rep #: [id number] : 1975 49 From: Carmelo Mart MD PCP: Care Physician,No Primary Status:REG SDC Y Race: C Location: [place] [address] Anesthesia Postop Eval I Sum Postop Eval [...] Vomiting: No 08/25/242029 Date [facility] Signature: Date CC: Signed Normal [facility] MR/POSTOPAN2 [facility] Medical Records Department [address] [place] [address] Anesthesia Postop Eval II 08/25/24 1650 MR#: [id number] Acct: [id number] Name: LM ALVARADO Rep #: [id number] : 1975 49 From: Carmelo Mart MD PCP: Care Physician,No Primary Status:REG SDC Y Race: C Location: [place] [address]-1 Anesthesia Postop Eval I Sum Postop Eval Completion status Anesthesia document: Postop Eval 1 completed: Yes Anesthesia Postop Eval I Summary Anesthesia Postop Eval I Summary: Anesthesia Postop Eval I: Assessment Summary Airway patent Yes 08/25/24 15:41 MOLDER PUNCH.GDOTT Spontaneous unlabored Yes 08/25/24 15:41 MOLDER PUNCH.GDOTT respirations Mental status Awake,Calm 08/25/24 15:41 MOLDER PUNCH.GDOTT nausea No 08/25/24 15:41 MOLDER PUNCH.GDOTT Vomiting No 08/25/24 15:41 MOLDER PUNCH.GDOTT Anesthesia Postop Eval I: Fluid Summary Crystalloid volume administer 1,000 08/25/24 15:41 MOLDER PUNCH.GDOTT (ml) Colloids volume administered ( ml) Blood Product volume administered (ml) Total IV fluid infused 1,000 08/25/24 15:41 MOLDER PUNCH.GDOTT Anesthesia Postop Eval I: Summary Notes Anesthesia Complication No 08/25/24 15:41 MOLDER PUNCH.GDOTT Anesthesia Complication Comment: Post-operative progress note Anesthesia: Postop Eval II Evaluation Mental status: Awake Pain Level: 0 nausea: No Vomiting: No 08/25/24 1650 Date Carmleo Mart MD Cosigner Signature: Date CC: Signed Normal [facility] Monocyte percentageOrdered B y: Treasure Cardoso on 08-25-2024 Monocytes/100 WBC (Bld) 0.9 % 0-10 [facility] Neutrophil percentageOrdered By: Treasure Cardoso on 08-25-2024 Neutrophils/100 WBC (Bld) 93.2 % High 47-70 [facility] Nucleated red blood cell per centageOrdered By: Treasure Cardoso on 08-25-2024 Nucleated RBC/100 WBC (Bld) [Ratio] 0 % 0-5 [facility] Operative Reporton 5 Operative Report [facility] Medical Records Department [address] [place] [address] Operative Report 08/25/242036 MR#: [id number] Acct: [id number] Name: LM ALVARADO Rep #: [id number] : 1975 49 From: Treasure Cardoso MD PCP: Care Physician,No Primary Status:REG [facility] Location: [place] [address] Problems Associated Problem List Diagnoses (1) Abdominal wall hematoma: Procedures Urinary/Genital 52xxx-59xxx: Other Procedure See Report (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 No major vessel injury was suspected. [id number] suture of silk tie was placed in [...] MD; No Primary Care Physician Signed Normal [facility] Operative Report [facility] Medical Records Department [address] [place] [address] Operative Report 08/25/24 1515 MR#: [id number] Acct: [id number] Name: LM ALVARADO Rep #: [id number] : 1975 49 From: Treasure Cardoso MD PCP: Care Physician,No Primary Status:[facility] Location: [place] [address] Problems Associated Problem List Diagnoses (1) Pelvic pain: (2) Hemorrhagic cyst of ovary: (3) Datejovitaz: Operative Report (Standard) Operative Information Date of Procedure: 08/25/24 Pre-Operative Diagnosis: see above Post-Operative Diagnosis: same Surgery/Procedure Performed: laparoscopic right salpingoophorectomy left salpingectomy ovarian cystectomy sales negotiator: Yes Industrial Roofer: Juan Mendenhall Tasks completed by school office assistant: Opening, Closing, Insert Trochanter and Retracting [...] MD; No Primary Care Physician Signed Normal [facility] Partial Thromboplast Timeon 08-25-2024 aPTT Coag (Bld) [Time] 30.8 s Normal 24.1-36.2 [facility] Comment on above: Order Comment: Comme nts: STAT Performed By: #### L 300.1670, L300.4700, L300.3900 ####[facility] [id number] [place], [address] Prothrombin Time w/INRon INR Coag (PPP) [Relative time] 1.1 {INR} Normal [facility] Comment on above: Order Comment: Comme nts: STAT Performed By: #### L 300.4310, L300.4700, L300.3900 #### [facility] [address] [place], [place], [address] PT Coag (PPP) [Time] 14.8 s Normal 11.7-14.9 [facility] Comment on above: Order Comment: Comme nts: STAT Performed By: #### L 300.4310, L300.4700, L300.3900 #### [facility] [address] [facility] [place], [address] Prothrombin timeOrdered By: Treasure Cardoso on 08-25-2024 PT Coag (PPP) [Time] 14.8 s 11.7-14.9 [facility] Surgery Specimen Level IIon 08-25-2024 Surgery Specimen Level II Patient Age/Sex Location Account Attending Physician LM ALVARADO/F MS3 [id number] Dr. Treasure Cardoso MD Specimen: [id number] Received: 08/25/24 Status: FLORENTIN Seymour Num: [id number] Spec Type: FALL TUBES Subm Dr: Dr. Treasure Cardoso MD HEADER OPERATION: Laparoscopic, right oophorectomy, possible left oopherectomy PRE-OP DIAGNOSIS: Mittelschmerz, pelvic pain, hemorrhagic cyst of ovary TISSUE [...] pinpoint lumen. No fimbriated end is discovered. Heel Shaper sections:A1. Possible fimbriated fallopian tube with paratubal cystA2. Possible cyst wallA3. Possible fallopian tube attached to ovaryA4-5. Ovary B 08-26-2024 Patient Age/Sex Location Account Attending Physician LM ALVARADO/Lizette MS3 [id number] Dr. Treasure Cardoso MD CPT:[id number] Patient Age/Sex Location Account Attending Physician LM ALVARADO 49/F MS3 [id number] Dr. Treasure Cardoso MD Signed (signature on file) Dr. Beth Barajas DO 09/07/24 1457 Normal [facility] Comment on above: Performed By: #### Dung AIKEN ####[facility] [id number] [place], [address] Electrocardiogram reportOrde red By: Rob Vee on 08-24-2024 EKG study [facility] Cardiovascular Services [address] [place] [address] 12 Lead EKG 08/20/24 1023 MR#: [id number] Acct: [id number] Name: LM ALVARADO Rep #:[id number] : 1975 49 From: Rob Vee MD Attending Dr: Dr. Treasure Cardoso MD Status: PRE SDC Ordering Dr: Treasure Cardoso MD Marco Antonio e: 08/20/24 Location: [facility] Sex: F C Admitted: Test Reason : [...] Abnormal ECG Confirmed by NANDA NUR, ROB ([id number]), design editor HUGO MÁRQUEZ ([id number]) on 08/24/2024 9:15:07 AM Referred By: Treasure Cardoso Confirmed By: ROB VEE MD 08/24/24 0915 Date _ Rob Vee MD CC: Dr. Treasure Cardoso MD; No Primary Care Physician ~ Signed [facility] Work Phone: 12 Lead EKGon 08-20-2024 12 Lead EKG [facility] Cardiovascular Services [address] [place] [address] 12 Lead EKG 08/20/24 1023 MR#: [id number] Acct: [id number] Name: LM ALVARADO Rep #: [id number] : 1975 49 From: Rob Vee MD Attending Dr: Dr. Tresaure Cardoso MD Status: PRE SDC Ordering Dr: Treasure Cardoso MD Date: 08/20/24 Location: [facility] Sex: F C Admitted: Test Reason : [...] Abnormal ECG Confirmed by NANDA NUR, ROB ([id number]), design editor HUGO MÁRQUEZ ([id number]) on 08/24/2024 9:15:07 AM Referred By: Treasure Cardoso Confirmed By: ROB VEE MD 08/24/2415 Date Rob Vee MD CC: Dr. Treasure Cardoso MD; No Primary Care Physician Signed Normal [facility] Type AND Screen - PAT ONLYon 08-20-2024 Ab SCREEN GEL Negative Normal [facility] Comment on above: Order Comment: Reaso n for Laboratory Test [id number] Performed By: #### B TSPAT ####[facility] [id number] [facility] [place], [address] MR/PAT.ANEon 08-19-2024 MR/PAT.[facility] Medical Records Department [address] [place] [address] PAT - Anesthesia 08/19/24 1217 MR#: [id number] Acct: [id number] Name: LM ALVARADO Rep #: [id number] : 1975 49 From: Carmelo Mart MD PCP: Care Physician,No Primary Status:PRE [facility] Y Race: C [place] [facility] Pre-Assessment Diagnosis/Proposed Procedure Planned Operative Procedure(s): (R) Laparoscopic, Right Oopherectomy, possible Left Oophorectomy Anesthesia History Anesthesia History - hardness tester: Anesthesia History - hardness tester Hx Hospitalization No 08/19/24 10:23 Any Problems [...] take am of surgery PONV PONV - hardness tester: PONV - hardness tester Female Yes 08/19/24 10:23 HX of Motion [...] 08/13/24 08:22 Respiratory Assessment Respiratory Assessment - hardness tester: Respiratory Tract Infection Hx - hardness tester Hx Respiratory Tract Infection No 08/19/24 10:23 STOP Sleep Apnea STOP Sleep Apnea - hardness tester: STOP Sleep Apnea - hardness tester Hx Hypertension No: hypotension 08/19/24 10:23 Hx [...] Tobacco Use History Tobacco Use History - hardness tester: Tobacco Use History - hardness tester Tobacco Use Smoking Status Current every day smoker 08/19/24 10:23 Hx Tobacco Use Yes 08/19/24 10:23 Years Smoking Packs Smoked per Day 1 08/19/24 10:23 Smoking Cessation Date was within the last 15 years Hx Smoking Cessation Date Hx Smoking Cessation Counseling Hematologic Medial History Hematologic Hx - hardness tester: 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 Specify any problems Hx of Preganancy in last 3 N/A 08/19/24 10:23 Months Nurse Filling Out Transfusion NBUCHER 08/19/24 10:23 Questions: Date: 08/19/24 08/19/24 10:23 Time: 08/19/24 10:23 Patient unable to answer at this time (ie. confused, unrespo /Reproduction History /Reproductive History - hardness tester: /Reproductive Hx- hardness tester Hx Now No 08/19/24 10:23 Gestational Age (in weeks): EDC: Hx Hx Para Hx Section SAB No 08/19/24 10:23 [facility] Medical History (Updated 08/19/24 @ 10:37 by [...] Anaphylaxis Verified (more content not included)... Normal [facility] Casing Flusher Office Visit Reporton 08-18-2024 Casing Flusher Office Visit Report [facility] [address], [address] [place] [address] OFFICE VISIT Date of Service: 08/18/24 MR#: [id number] Acct: [id number] Name: LM ALVARADO Rep #: [id number] : 1975 Provider: Dr. 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 Smoking Status: Current every day smoker tobacco [...] to work. She is living in a correction at present. She states she wants to [...] [facility]th [facility] FOB Unknown 1994 Vin[address] live - [...] comfortable and no acute distress Orientation: alert [facility] Head: normal to inspection and normocephalic Ears: hearing grossly normal bilaterally and external ears normal Nose: external nose normal and (more content not included)... Normal [facility] Cancer Antigen 125on 025 CA 125 4.0 U/mL Normal 0.0-38.1 [facility] Comment on above: Result Comment: [facility] Electrochemiluminescence Immunoassay (ECLIA) Values obtained with different assay methods or kits cannot be used interchangeably. Results cannot be interpreted as absolute evidence of the presence or absence of malignant disease. Performed at: [address] [id number] Digital Strategy Director: Brandon Kulkarni PhD, Phone: [phone] Performed By: #### L 500.2500, L100.0100 #### [facility] [address] [place], [place], [id number] Carcinoembryonic Antigenon 0 08-14-2024 CEA 2.9 ng/mL Normal 0.0-4.7 [facility] Comment on above: Result Comment: Nons mokers <3.9 Smokers <5.6 [facility] Electrochemiluminescence Immunoassay (ECLIA) Values obtained with different assay methods or kits cannot be used interchangeably. Results cannot be interpreted as absolute evidence of the presence or absence of malignant disease. Performed By: #### L 500.2500, L100.0100 #### [facility] [address] [place], [place], [id number] Absolute lymphocyte countOrd ered By: Moriah Davidson on 08-13-2024 Lymphocytes Auto (Unsp spec) [#/Vol] 2.36 10*3/uL 0.83-4.51 [facility] Absolute neutrophil countOrd ered By: Moriah Davidson on 08-13-2024 Neutrophils (Bld) [#/Vol] 4.5 10*3/uL 2.0-7.7 [facility] Automated lymphocyte count a s percentage of total leukocytesOrdered By: Moriah Davidson on 08-13-2024 Lymphocytes/100 WBC Auto (Unsp spec) 31.1 % 19-41 [facility] Basophil percentageOrdered B y: Moriah Davidson on 08-13-2024 Basophils/100 WBC (Bld) 0.5 % 0-1 [facility] CBC W/Diff, Automatedon Absolute Lymph 2.36 X10 3/uL Normal 0.83-4.51 [facility] Comment on above: Performed By: #### L 500.2500, L100.0100 #### [facility] [address] [place], [address] Absolute Neut 4.5 X10 3/uL Normal 2.0-7.7 [facility] Comment on above: Performed By: #### L 500.2500, L100.0100 #### [facility] [address] [place], [address] Basophils/100 WBC (Bld) 0.5 % Normal 0-1 [facility] Comment on above: Performed By: #### L 500.2500, L100.0100 #### [facility] [address] [place], [address] Eosinophils/100 WBC (Bld) 1.6 % Normal 0-5 [facility] Comment on above: Performed By: #### L 500.2500, L100.0100 #### [facility] [address] [place], [address] Erythrocyte distribution width (RBC) [Ratio] 13.0 % Normal 11.6-14.6 [facility] Comment on above: Performed By: #### L 500.2500, L100.0100 #### [facility] [address] [place], [address] Hematocrit (Bld) [Volume fraction] 45.6 % Normal 37-47 [facility] Comment on above: Performed By: #### L 500.2500, L100.0100 #### [facility] [address] [place], [address] Hemoglobin (Bld) [Mass/Vol] 15.6 g/dL High 12.0-15.0 [facility] Comment on above: Performed By: #### L 500.2500, L100.0100 #### [facility] [address] [place], [address] IG% 0.300 Normal 0.0-0.9 [facility] Comment on above: Result Comment: IG% - Immature Granulocytes (promyelocytes, myelocytes and metamyelocytes) > 1% indicates that a LEFT SHIFT is Present. Performed By: #### L 500.2500, L100.0100 #### [facility] [address] [place], [address] Lymphocytes/100 WBC (Bld) 31.1 % Normal 19-41 [facility] Comment on above: Performed By: #### L 500.2500, L100.0100 #### [facility] [address] [place], [address] MCH (RBC) [Entitic mass] 32.2 pg High 27.0-32.0 [facility] Comment on above: Performed By: #### L 500.2500, L100.0100 #### [facility] [address] [place], [address] MCHC (RBC) [Mass/Vol] 34.2 g/dL Normal 32-36 [facility] Comment on above: Performed By: #### L 500.2500, L100.0100 #### [facility] [address] [place], [address] MCV (RBC) [Entitic vol] 94.0 fL Normal 81-99 [facility] Comment on above: Performed By: #### L 500.2500, L100.0100 #### [facility] [address] [place], [address] Monocytes/100 WBC (Bld) 7.0 % Normal 0-10 [facility] Comment on above: Performed By: #### L 500.2500, L100.0100 #### [facility] [address] [place], [address] Neutrophils/100 WBC (Bld) 59.5 % Normal 47-70 [facility] Comment on above: Performed By: #### L 500.2500, L100.0100 #### [facility] [address] [place], [address] Nucleated RBC (Bld) [#/Vol] 0 10*3/uL Normal 0-5 [facility] Comment on above: Performed By: #### L 500.2500, L100.0100 #### [facility] [address] [place], [address] Platelet mean volume (Bld) [Entitic vol] 10.4 fL Normal 6.2-12.0 [facility] Comment on above: Performed By: #### L 500.2500, L100.0100 #### [facility] [address] [place], [address] Platelets (Bld) [#/Vol] 285 10*3/uL Normal 150-450 [facility] Comment on above: Performed By: #### L 500.2500, L100.0100 #### [facility] [address] [place], [address] RBC (Bld) [#/Vol] 4.85 10*6/uL Normal 4.2-5.4 [facility] Comment on above: Performed By: #### L 500.2500, L100.0100 #### [facility] [address] [place], [address] RDW SD 45.0 fl High 35.1-43.9 [facility] Comment on above: Performed By: #### L 500.2500, L100.0100 #### [facility] [address] [place], [address] WBC (Bld) [#/Vol] 7.6 10*3/uL Normal 4.4-11.0 [facility] Comment on above: Performed By: #### L 500.2500, L100.0100 #### [facility] [address] [place], [address] Cancer antigen 125 (CA-125) measurementOrdered By: Moriah Davidson on 08-13-2024 Cancer antigen 125 (CA-125) measurement 4.0 U/mL 0.0-38.1 [facility] Comment on above: [facility] El ectrochemiluminescence Immunoassay(ECLIA)Values obtained with different assay methods or kits cannotbe used interchangeably. Results cannot be interpreted asabsolute evidence of the presence or absence of malignantdisease.Performed at: [facility] [employer] [id number] Director: Brandon Kulkarni PhD, Phone: [phone] Eosinophil percentageOrdered By: Moriah Davidson on 08-13-2024 Eosinophils/100 WBC (Bld) 1.6 % 0-5 [facility] Erythrocyte distribution wid th ratioOrdered By: Moriah Davidson on 08-13-2024 Erythrocyte distribution width (RBC) [Ratio] 13.0 % 11.6-14.6 [facility] Erythrocyte distribution wid th standard deviationOrdered By: Moriah Davidson on 08-13-2024 Erythrocyte distribution width (RBC) [Ratio] 45.0 fl High 35.1-43.9 [facility] Hematocrit Auto (Bld) [Volum e fraction]Ordered By: Moriah Davidson on 08-13-2024 Hematocrit (Bld) [Volume fraction] 45.6 % 37-47 [facility] Hemoglobin measurementOrdere d By: Moriah Davidson on 08-13-2024 Hemoglobin (Bld) [Mass/Vol] 15.6 g/dL High 12.0-15.0 [facility] Immature granulocytes/100 WB C Auto (Bld)Ordered By: Moriah Davidson on 08-13-2024 Immature granulocytes/100 WBC (Bld) 0.300 % 0.0-0.9 [facility] Comment on above: IG% - Immature Granu locytes (promyelocytes, myelocytes and metamyelocytes) > 1% indicates that a LEFT SHIFT is Present. MCV (mean corpuscular volume ) determinationOrdered By: Moriah Davidson on 08-13-2024 MCV (RBC) [Entitic vol] 94.0 fL 81-99 [facility] Mean corpuscular hemoglobin (MCH) determinationOrdered By: Moriah Davidson on 08-13-2024 MCH (RBC) [Entitic mass] 32.2 pg High 27.0-32.0 [facility] Mean corpuscular hemoglobin concentration (MCHC) determinationOrdered By: Moriah Davidson on 08-13-2024 MCHC (RBC) [Mass/Vol] 34.2 g/dL 32-36 [facility] Mean platelet volume determi nationOrdered By: Moriah Davidson on 08-13-2024 Platelet mean volume (Bld) [Entitic vol] 10.4 fL 6.2-12.0 [facility] Monocyte percentageOrdered B y: Moriah Davidson on 08-13-2024 Monocytes/100 WBC (Bld) 7.0 % 0-10 [facility] Neutrophil percentageOrdered By: Moriah Davidson on 08-13-2024 Neutrophils/100 WBC (Bld) 59.5 % 47-70 [facility] Nucleated red blood cell per centageOrdered By: Moriah Davidson on 08-13-2024 Nucleated RBC/100 WBC (Bld) [Ratio] 0 % 0-5 [facility] Casing Flusher Office Visit Reporton 08-13-2024 Casing Flusher Office Visit Report [facility] [address], [address] [place] [address] OFFICE VISIT Date of Service: 08/13/24 MR#: [id number] Acct: [id number] Name: MARIA TLM Rep #: [id number] : 1975 Provider: Dr. Moriah Kaplan DO Age/Sex: 49/F [place] [facility]: Signed Intake Vital Signs 08/11/24 10:27 08/13/24 08:22 08/13/24 08:22 Height 5 ft 4 in 5 ft 4 in 5 ft 4 in Weight: 119 lb BMI 20.4 BP 100/58 L Intake Visit Reasons: ER follow up right sided pain Supervisor Metalizing Required: No Is patient in pain?: No [...] 3 current occupational status: employed current occupation: [employer] Smoking Status: Current every day smoker tobacco type: cigarettes and e-cigarettes do you feel safe at home: Yes additional social history: Boyfriend - Terence JJ ER follow up right sided pain Details: [...] paused to repeat ultrasound. tumor markers today. 08/13/24 0855 Date (more content not included)... Normal [facility] Platelet countOrdered By: Wiley Reyesismael on 08-13-2024 Platelets (Bld) [#/Vol] 285 10*3/uL 150-450 [facility] RBC Auto (Bld) [#/Vol]Ordere d By: Moriah Stuart on 08-13-2024 RBC (Bld) [#/Vol] 4.85 10*6/uL 4.2-5.4 [facility] Serum or plasma carcinoembry onic antigen measurement (mass/volume)Ordered By: Moriah Davidson on 08-13-2024 Carcinoembryonic Ag [Mass/Vol] 2.9 ng/mL 0.0-4.7 [facility] Comment on above: Nonsmokers <3.9 Smok ers <5.6[facility] Electrochemiluminescence Immunoassay(ECLIA)Values obtained with different assay methods or kitscannot be used interchangeably. Results cannot beinterpreted as absolute evidence of the presence orabsence of malignant disease. White blood cell (WBC) count Ordered By: Moriahta Davidson on 08-13-2024 WBC (Bld) [#/Vol] 7.6 10*3/uL 4.4-11.0 [facility] Absolute lymphocyte countOrd ered By: Richard Burgos on 08-11-2024 Lymphocytes Auto (Unsp spec) [#/Vol] 2.18 10*3/uL 0.83-4.51 [facility] Absolute neutrophil countOrd ered By: Richard Burgos on 08-11-2024 Neutrophils (Bld) [#/Vol] 3.4 10*3/uL 2.0-7.7 [facility] Automated lymphocyte count a s percentage of total leukocytesOrdered By: Richard Burgos on 08-11-2024 Lymphocytes/100 WBC Auto (Unsp spec) 34.8 % 19-41 [facility] Basophil percentageOrdered B y: Richard Burgos on 08-11-2024 Basophils/100 WBC (Bld) 0.3 % 0-1 [facility] Bilirubin Test strip Ql (U)O rdered By: Richard Burgos on 08-11-2024 Bilirubin Ql (U) Negative Negative [facility] CBC W/Diff, Automatedon 05-0 6-2025 Absolute Lymph 2.18 X10 3/uL Normal 0.83-4.51 [facility] Comment on above: Performed By: #### L 100.0100 ####[facility] [address] [place], [address] Absolute Neut 3.4 X10 3/uL Normal 2.0-7.7 [facility] Comment on above: Performed By: #### L 100.0100 ####[facility] [address] [place], [address] Basophils/100 WBC (Bld) 0.3 % Normal 0-1 [facility] Comment on above: Performed By: #### L 100.0100 ####[facility] [address] [place], [address] Eosinophils/100 WBC (Bld) 2.2 % Normal 0-5 [facility] Comment on above: Performed By: #### L 100.0100 ####[facility] [address] [place], [address] Erythrocyte distribution width (RBC) [Ratio] 13.1 % Normal 11.6-14.6 [facility] Comment on above: Performed By: #### L 100.0100 ####[facility] [address] [place], [address] Hematocrit (Bld) [Volume fraction] 45.8 % Normal 37-47 [facility] Comment on above: Performed By: #### L 100.0100 ####[facility] [address] [place], [address] Hemoglobin (Bld) [Mass/Vol] 15.6 g/dL High 12.0-15.0 [facility] Comment on above: Performed By: #### L 100.0100 ####[facility] [address] [place], [address] IG% 0.300 Normal 0.0-0.9 [facility] Comment on above: Result Comment: IG% - Immature Granulocytes (promyelocytes, myelocytes and metamyelocytes) > 1% indicates that a LEFT SHIFT is Present. Performed By: #### L 100.0100 ####[facility] [address] [place], [address] Lymphocytes/100 WBC (Bld) 34.8 % Normal 19-41 [facility] Comment on above: Performed By: #### L 100.0100 ####[facility] [address] [place], [address] MCH (RBC) [Entitic mass] 31.6 pg Normal 27.0-32.0 [facility] Comment on above: Performed By: #### L 100.0100 ####[facility] [address] [place], [address] MCHC (RBC) [Mass/Vol] 34.1 g/dL Normal 32-36 [facility] Comment on above: Performed By: #### L 100.0100 ####[facility] [address] [place], [address] MCV (RBC) [Entitic vol] 92.7 fL Normal 81-99 [facility] Comment on above: Performed By: #### L 100.0100 ####[facility] [address] [place], [address] Monocytes/100 WBC (Bld) 7.7 % Normal 0-10 [facility] Comment on above: Performed By: #### L 100.0100 ####[facility] [address] [place], [address] Neutrophils/100 WBC (Bld) 54.7 % Normal 47-70 [facility] Comment on above: Performed By: #### L 100.0100 ####[facility] [address] [place], [address] Nucleated RBC (Bld) [#/Vol] 0 10*3/uL Normal 0-5 [facility] Comment on above: Performed By: #### L 100.0100 ####[facility] [address] [place], [address] Platelet mean volume (Bld) [Entitic vol] 9.3 fL Normal 6.2-12.0 [facility] Comment on above: Performed By: #### L 100.0100 ####[facility] [address] [place], [address] Platelets (Bld) [#/Vol] 273 10*3/uL Normal 150-450 [facility] Comment on above: Performed By: #### L 100.0100 ####[facility] [address] [place], [address] RBC (Bld) [#/Vol] 4.94 10*6/uL Normal 4.2-5.4 [facility] Comment on above: Performed By: #### L 100.0100 ####[facility] [address] [place], [address] RDW SD 44.8 fl High 35.1-43.9 [facility] Comment on above: Performed By: #### L 100.0100 ####[facility] [address] [place], [address] WBC (Bld) [#/Vol] 6.3 10*3/uL Normal 4.4-11.0 [facility] Comment on above: Performed By: #### L 100.0100 ####[facility] [address] [place], [address] Emergency Department Summary on 08-11-2024 Emergency Department Summary [facility] Medical Records Department [address] [place] [address] Emergency Department Summary 08/11/24 MR#: [id number] Acct: [id number] Name: LM ALVARADO Rep #: [id number] : 1975 49 From: Richard Burgos MD [...] an ultrasound on July 08, 2024 at [facility] and was found to have a hemorrhagic [...] Prior similar symptoms: Yes Recent Illness/Hospitalization: Yes [facility] Medical History Interstitial cystitis Irritable bowel syndrome [...] 3 current occupational status: employed current occupation: [employer] Smoking Status: Current every day smoker tobacco type: cigarettes and e-cigarettes do you feel safe at home: Yes additional social history: Boyfriend - Terence KNUTSON EAMON ED Constitutional Constitutional ED: Denies chills, fever(s), [...] pale conj (more content not included)... Normal [facility] Eosinophil percentageOrdered By: Richard Burgos on 08-11-2024 Eosinophils/100 WBC (Bld) 2.2 % 0-5 [facility] Erythrocyte distribution wid th ratioOrdered By: Richardbrett Burgos on 08-11-2024 Erythrocyte distribution width (RBC) [Ratio] 13.1 % 11.6-14.6 [facility] Erythrocyte distribution wid th standard deviationOrdered By: Richardbrett Burgos on 08-11-2024 Erythrocyte distribution width (RBC) [Ratio] 44.8 fl High 35.1-43.9 [facility] Hematocrit Auto (Bld) [Volum e fraction]Ordered By: Richardbrett Burgos on 08-11-2024 Hematocrit (Bld) [Volume fraction] 45.8 % 37-47 [facility] Hemoglobin measurementOrdere d By: Richardbrett Burgos on 08-11-2024 Hemoglobin (Bld) [Mass/Vol] 15.6 g/dL High 12.0-15.0 [facility] Immature granulocytes/100 WB C Auto (Bld)Ordered By: Richardbrett Burgos 08-11-2024 Immature granulocytes/100 WBC (Bld) 0.300 % 0.0-0.9 [facility] Comment on above: IG% - Immature Granu locytes (promyelocytes, myelocytes and metamyelocytes) > 1% indicates that a LEFT SHIFT is Present. Ketones Test strip Ql (U)Ord ered By: Richard Burgos on 08-11-2024 Ketones Ql (U) Negative Negative [facility] MCV (mean corpuscular volume ) determinationOrdered By: Richardbrett Burgos on 08-11-2024 MCV (RBC) [Entitic vol] 92.7 fL 81-99 [facility] Mean corpuscular hemoglobin (MCH) determinationOrdered By: Richardbrett Burgos on 08-11-2024 MCH (RBC) [Entitic mass] 31.6 pg 27.0-32.0 [facility] Mean corpuscular hemoglobin concentration (MCHC) determinationOrdered By: Richardbrett Burgos on 08-11-2024 MCHC (RBC) [Mass/Vol] 34.1 g/dL 32-36 [facility] Mean platelet volume determi nationOrdered By: Richard Burgos on 08-11-2024 Platelet mean volume (Bld) [Entitic vol] 9.3 fL 6.2-12.0 [facility] Microscopic analysis of urin e for red blood cells (RBC)Ordered By: Richard Burgos on 08-11-2024 Microscopic analysis of urine for red blood cells (RBC) 0 SEEN /hpf 0-5 [facility] Monocyte percentageOrdered B y: Richard Burgos on 08-11-2024 Monocytes/100 WBC (Bld) 7.7 % 0-10 [facility] Mucus LM Ql (Urine sed)Order ed By: Richard Burgos on 08-11-2024 Mucus Ql (Urine sed) 0 SEEN /hpf [facility] Neutrophil percentageOrdered By: Richard Burgos on 08-11-2024 Neutrophils/100 WBC (Bld) 54.7 % 47-70 [facility] Nitrite Test strip Ql (U)Ord ered By: Richard Burgos on 08-11-2024 Nitrite Ql (U) Negative Negative [facility] Nucleated red blood cell per centageOrdered By: Richard Burgos on 08-11-2024 Nucleated RBC/100 WBC (Bld) [Ratio] 0 % 0-5 [facility] Platelet countOrdered By: Ezequiel Burgos on 08-11-2024 Platelets (Bld) [#/Vol] 273 10*3/uL 150-450 [facility] Protein Test strip Ql (U)Ord ered By: Richard Burgos on 08-11-2024 Protein Ql (U) 15 mg/dl High Negative [facility] RBC Auto (Bld) [#/Vol]Ordere d By: Richard Burgos on 08-11-2024 RBC (Bld) [#/Vol] 4.94 10*6/uL 4.2-5.4 [facility] Squamous epithelial cells de tection in urine sediment by light microscopyOrdered By: Richard Burgos on 08-11-2024 Epithelial cells.squamous LM Ql (Urine sed) 0 SEEN /hpf 5-10 [facility] Transvaginal Non-on 08-11-2024 Transvaginal Non- [facility] Imaging Services [address] [place] [address] Transvaginal Non- MR#: [id number] Acct: [id number] Name: LM ALVARADO Rep #: [id number] : 1975 F 49 From: Chandler Smyth MD PCP: Care Physician,No Primary Status: REG ER Study: Transvaginal Non- Date of Exam: Exam# [id number] Ordering Dr: Richard Burgos MD PROCEDURE: TRANSVAGINAL [...] 4. Additional description as above. Reading Location: [id number] CC: Dr. Richard Burgos MD; No Primary Care Physician Transportation Program Director: Signed Normal [facility] Urinalysis, Completeon 08-11 BACTERIA 0 SEEN Normal None Seen [facility] Comment on above: Order Comment: CLEAN CATCH Performed By: #### L 400.0001 ####[facility] [address] [place], [place], [id number] EPI,SQUAMOUS 0 SEEN Normal 5-10 [facility] Comment on above: Order Comment: CLEAN CATCH Performed By: #### L 400.0001 ####[facility] [id number] [place], [place], [id number]) Mucus Ql (Urine sed) 0 SEEN Normal [facility] Comment on above: Order Comment: CLEAN CATCH Performed By: #### L 400.0001 ####[facility] [id number] [place], [address] RBC 0 SEEN Normal 0-5 [facility] Comment on above: Order Comment: CLEAN CATCH Performed By: #### L 400.0001 ####[facility] [id number] [place], [address] WBC 0 SEEN Normal 0-5 [facility] Comment on above: Order Comment: CLEAN CATCH Performed By: #### L 400.0001 ####[facility] [id number] [place], [place], [id number] Urine clarityOrdered By: Richard Burgos on 08-11-2024 Clarity (U) Clear Clear [facility] Urine color determinationOrd ered By: Richard Burgos on 08-11-2024 Color (U) Yellow Yellow [facility] Urine glucose detectionOrder ed By: Richard Burgos on 08-11-2024 Glucose Ql (U) Normal mg/dl Normal [facility] Urine leukocyte esterase det ection by dipstickOrdered By: Richard Burgos on 08-11-2024 Leukocyte esterase Test strip Ql (U) Negative Negative [facility] Urine pHOrdered By: Richard west on 08-11-2024 pH (U) 6.0 [pH] 5.0 - 8.0 [facility] Urine sediment bacteria coun t by microscopy (number/high power field)Ordered By: Richard Burgos on 08-11-2024 Bacteria LM.HPF (Urine sed) [#/Area] 0 /[HPF] None Seen [facility] Urine specific gravity measu rementOrdered By: Richard Burgos on 08-11-2024 Specific gravity (U) [Rel density] 1.010 1.002-1.030 [facility] Urine urobilinogen measureme ntOrdered By: Richard Burgos on 08-11-2024 Urobilinogen Ql (U) Normal mg/dl Normal [facility] White blood cell (WBC) count Ordered By: Richard Burgos on 08-11-2024 WBC (Bld) [#/Vol] 6.3 10*3/uL 4.4-11.0 [facility] White blood cell countOrdere d By: Richard Burgos on 08-11-2024 White blood cell count 0 SEEN /hpf 0-5 [facility] Emergency Department Summary on 08-09-2024 Emergency Department Summary [facility] Medical Records Department [address] [place] [address] Emergency Department Summary 08/09/24 MR#: [id number] Acct: [id number] Name: LM ALVARADO Rep #: [id number] : 1975 49 From: Juan Lovell MD [...] back surgery. 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 Treasure Cardoso who instructed her [...] 3 current occupational status: employed current occupation: [employer] Smoking Status: Current every day smoker tobacco [...] Temperature Source (more content not included)... Normal [facility] Emergency Department Summary on 07-28-2024 Emergency Department Summary [facility] Medical Records Department [address] [place] [address] Emergency Department Summary 07/28/24 MR#: [id number] Acct: [id number] Name: LM ALVARADO Rep #: [id number] : 1975 49 From: Juan Lovell MD [...] 3 current occupational status: employed current occupation: [employer] Smoking Status: Current every day smoker tobacco [...] soft nontender. Moving all 4 extremities. 5-5 vp compliance strength. Dorsi plantarflexion intact. Fingertip to nose [id number] well within normal limits. No drift. NIH is 0. Neurologic exam normal. Const Vital Signs: 07/28/24 15:56 Temperature 97.2 F L Temperature Source Temporal Pulse Rate 84 Respiratory Rate 15 Blood Pressure 108/67 Blood Pressure Mean 80 Pulse Ox 100 Oxygen Delivery Method Room Air Positive well nourished and well developed; Negative for obese, cachectic, c (more content not included)... Normal [facility] Casing Flusher Office Visit Reporton 07-15-2024 Casing Flusher Office Visit Report [facility] [address], [address] [place] [address] OFFICE VISIT Date of Service: 07/15/24 MR#: [id number] Acct: [id number] Name: LM ALVARADO Rep #: [id number] : 1975 Provider: Dr. Treasure viera MD Age/Sex: 49/F [place] [facility] [place]: Signed Intake Vital Signs 07/08/24 18:26 07/15/24 10:45 Height 5 ft 4 in 5 ft 4 in Weight: 117 lb BMI 20.0 BP 101/66 Intake Visit Reasons: Cysts on Ovaries *from ER Supervisor Metalizing Required: No Is patient in pain?: Yes [...] No : No PFSH Medical History (Updated 07/16/24 @ 06:15 by [...] 3 current occupational status: employed current occupation: [employer] Smoking Status: Current every day smoker tobacco [...] comfortable and no acute distress Orientation: alert HENNY Head: normal to inspection and normocephalic Ears: [...] auscultation bilat (more content not included)... Normal [facility] Abdomen/Pelvis W IV Cont ONL Yon 07-08-2024 Abdomen/Pelvis W IV Cont ONLY [facility] Imaging Services [address] [place], [place] [address] Abdomen/Pelvis W IV Cont ONLY MR#: [id number] Acct: [id number] Name: LM ALVARADO Rep #: [id number] : 1975 F 49 From: Gretel Cintron DO PCP: OUT OF TOWN DOCTOR Status: REG ER Study: Abdomen/Pelvis W IV Cont ONLY Date of Exam: Exam# [id number] Ordering Dr: Vickie Louie DO PROCEDURE: ABDOMEN/PELVIS [...] nonacute findings as described above. [facility] CC: Dr. Vickie Louie, Transportation Program Director: Signed Normal [facility] Absolute lymphocyte countOrd ered By: Vickie Louie on 07-08-2024 Lymphocytes Auto (Unsp spec) [#/Vol] 2.99 10*3/uL 0.83-4.51 [facility] Absolute neutrophil countOrd ered By: Vickie Louie on 07-08-2024 Neutrophils (Bld) [#/Vol] 5.7 10*3/uL 2.0-7.7 [facility] Anion gap in Serum or Plasma Ordered By: Vickie Louie on 07-08-2024 Anion gap [Moles/Vol] 13 mmol/L 5-15 [facility] Automated lymphocyte count a s percentage of total leukocytesOrdered By: Vickie Louie on 07-08-2024 Lymphocytes/100 WBC Auto (Unsp spec) 31.2 % 19-41 [facility] BUN/creatinine ratioOrdered By: [facility] on 07-08-2024 Urea nitrogen/Creatinine [Mass ratio] 16.7 mg/mg 10-20 [facility] Basophil percentageOrdered B y: [place] Jacy on 07-08-2024 Basophils/100 WBC (Bld) 0.5 % 0-1 [facility] Bilirubin Test strip Ql (U)O rdered By: Vickie Louie on 07-08-2024 Bilirubin Ql (U) Negative Negative [facility] Bilirubin, totalOrdered By: Vickie Louie on 07-08-2024 Bilirubin [Mass/Vol] 0.51 mg/dL 0.00-1.30 [facility] CBC W/Diff, Automatedon 04-0 -2024 Absolute Lymph 2.99 X10 3/uL Normal 0.83-4.51 [facility] Comment on above: Performed By: #### L 500.2500, L100.0100 #### [facility] Laboratory [address] [place], [address] Absolute Neut 5.7 X10 3/uL Normal 2.0-7.7 [facility] Comment on above: Performed By: #### L 500.2500, L100.0100 #### [facility] [address] [place], [address] Basophils/100 WBC (Bld) 0.5 % Normal 0-1 [facility] Comment on above: Performed By: #### L 500.2500, L100.0100 #### [facility] [address] [place], [address] Eosinophils/100 WBC (Bld) 1.4 % Normal 0-5 [facility] Comment on above: Performed By: #### L 500.2500, L100.0100 #### [facility] [address] [place], [address] Erythrocyte distribution width (RBC) [Ratio] 13.3 % Normal 11.6-14.6 [facility] Comment on above: Performed By: #### L 500.2500, L100.0100 #### [facility] [address] [place], [address] Hematocrit (Bld) [Volume fraction] 44.1 % Normal 37-47 [facility] Comment on above: Performed By: #### L 500.2500, L100.0100 #### [facility] [address] [place], [address] Hemoglobin (Bld) [Mass/Vol] 15.7 g/dL High 12.0-15.0 [facility] Comment on above: Performed By: #### L 500.2500, L100.0100 #### [facility] [address] [place], [address] IG% 0.400 Normal 0.0-0.9 [facility] Comment on above: Result Comment: IG% - Immature Granulocytes (promyelocytes, myelocytes and metamyelocytes) > 1% indicates that a LEFT SHIFT is Present. Performed By: #### L 500.2500, L100.0100 #### [facility] [address] [place], [address] Lymphocytes/100 WBC (Bld) 31.2 % Normal 19-41 [facility] Comment on above: Performed By: #### L 500.2500, L100.0100 #### [facility] [address] [place], [address] MCH (RBC) [Entitic mass] 32.2 pg High 27.0-32.0 [facility] Comment on above: Performed By: #### L 500.2500, L100.0100 #### [facility] [address] [place], [address] MCHC (RBC) [Mass/Vol] 35.6 g/dL Normal 32-36 [facility] Comment on above: Performed By: #### L 500.2500, L100.0100 #### [facility] [address] [place], [address] MCV (RBC) [Entitic vol] 90.4 fL Normal 81-99 [facility] Comment on above: Performed By: #### L 500.2500, L100.0100 #### [facility] [address] [place], [address] Monocytes/100 WBC (Bld) 7.5 % Normal 0-10 [facility] Comment on above: Performed By: #### L 500.2500, L100.0100 #### [facility] [address] [place], [address] Neutrophils/100 WBC (Bld) 59.0 % Normal 47-70 [facility] Comment on above: Performed By: #### L 500.2500, L100.0100 #### [facility] [address] [place], [address] Nucleated RBC (Bld) [#/Vol] 0 10*3/uL Normal 0-5 [facility] Comment on above: Performed By: #### L 500.2500, L100.0100 #### [facility] [address] [place], [address] Platelet mean volume (Bld) [Entitic vol] 9.3 fL Normal 6.2-12.0 [facility] Comment on above: Performed By: #### L 500.2500, L100.0100 #### [facility] [address] [place], [address] Platelets (Bld) [#/Vol] 283 10*3/uL Normal 150-450 [facility] Comment on above: Performed By: #### L 500.2500, L100.0100 #### [facility] [address] [place], [address] RBC (Bld) [#/Vol] 4.88 10*6/uL Normal 4.2-5.4 [facility] Comment on above: Performed By: #### L 500.2500, L100.0100 #### [facility] [address] [place], [address] RDW SD 43.9 fl Normal 35.1-43.9 [facility] Comment on above: Performed By: #### L 500.2500, L100.0100 #### [facility] [address] [place], [address] WBC (Bld) [#/Vol] 9.6 10*3/uL Normal 4.4-11.0 [facility] Comment on above: Performed By: #### L 500.2500, L100.0100 #### [facility] [place], [address] CNOVon 07-08-2024 CNOV Office Visit (UCWSTR ) ----- LM ALVARADO ([id number]) 1975 F CHT Date Time Provider Department 07/08/24 6:15 PM KATHLEEN BECK [facility] During your visit today, we recorded the following information about you: Kathleen Beck APRN.CNP 07/08/2024 6:27 PM Signed Patient triaged at [facility]. Here today with worsening rlq abd pain [...] Lost consciousness Date Reviewed: 03/11/2024 Reviewed by: kAilah Balderrama PA-C - Fully Assessed Primary Visit [...] (None) Encounter Status:Closed by KATHLEEN BECK on 4/2/25 Normal [facility] Carbon dioxide, total [Moles /volume] in Central venous bloodOrdered By: Vickie Louie on 07-08-2024 CO2 [Moles/Vol] 20.9 mmol/L Low 21.0-32.0 [facility] Chloride assayOrdered By: Magda Louie on 07-08-2024 Chloride [Moles/Vol] 103 mmol/L 98-108 [facility] Comprehensive Metabolic Prof ilon 07-08-2024 Albumin [Mass/Vol] 4.5 g/dL Normal 3.5-5.0 [facility] Comment on above: Performed By: #### L 500.2500, L100.0100 #### [facility] [address] [place], [address] Albumin/Globulin [Mass ratio] 1.5 {ratio} Normal 0.9-2.4 [facility] Comment on above: Performed By: #### L 500.2500, L100.0100 #### [facility] [address] [place], [address] ALK PHOS 56 U/L Normal 35-104 [facility] Comment on above: Performed By: #### L 500.2500, L100.0100 #### [facility] [address] [place], [address] ALT [Catalytic activity/Vol] 10 U/L Normal <=34 [facility] Comment on above: Performed By: #### L 500.2500, L100.0100 #### [facility] [address] [place], [address] AST [Catalytic activity/Vol] 17 U/L Normal <=31 [facility] Comment on above: Performed By: #### L 500.2500, L100.0100 #### [facility] [address] [place], [address] Bilirubin [Mass/Vol] 0.51 mg/dL Normal 0.00-1.30 [facility] Comment on above: Performed By: #### L 500.2500, L100.0100 #### [facility] [address] [place], [address] BUN/CRE 16.7 RATIO Normal 10-20 [facility] Comment on above: Performed By: #### L 500.2500, L100.0100 #### [facility] [address] [place], [address] Calcium [Mass/Vol] 9.4 mg/dL Normal 7.6-11.0 [facility] Comment on above: Performed By: #### L 500.2500, L100.0100 #### [facility] [address] [place], [address] Chloride [Moles/Vol] 103 mmol/L Normal 98-108 [facility] Comment on above: Performed By: #### L 500.2500, L100.0100 #### [facility] [address] [place], [address] CO2 [Moles/Vol] 20.9 mmol/L Low 21.0-32.0 [facility] Comment on above: Performed By: #### L 500.2500, L100.0100 #### [facility] [address] [place], [address] Creatinine [Mass/Vol] 0.80 mg/dL Normal 0.70-1.20 [facility] Comment on above: Performed By: #### L 500.2500, L100.0100 #### [facility] [address] [place], [address] ECRCL 70.23 ml/min Normal 50-250 [facility] Comment on above: Performed By: #### L 500.2500, L100.0100 #### [facility] [address] [place], [address] GAP 13 Normal 5-15 [facility] Comment on above: Performed By: #### L 500.2500, L100.0100 #### [facility] [address] [place], [address] GFR/1.73 sq M.predicted among non-blacks MDRD (S/P/Bld) [Vol rate/Area] 90 mL/min/{1.73_m2} Normal >60 [facility] Comment on above: Result Comment: mL/m in/1.73m2 CKD-EPI Creatinine Equation (2020) Performed By: #### L 500.2500, L100.0100 #### [facility] [address] [place], [address] Globulin (S) [Mass/Vol] 3.0 g/dL Normal 2.2-4.2 [facility] Comment on above: Performed By: #### L 500.2500, L100.0100 #### [facility] [address] [place], [address] Glucose [Mass/Vol] 86 mg/dL Normal 70-99 [facility] Comment on above: Performed By: #### L 500.2500, L100.0100 #### [facility] [address] [place], [address] Potassium [Moles/Vol] 3.7 mmol/L Normal 3.3-5.1 [facility] Comment on above: Performed By: #### L 500.2500, L100.0100 #### [facility] [address] [place], [address] Sodium [Moles/Vol] 136 mmol/L Normal 133-145 [facility] Comment on above: Performed By: #### L 500.2500, L100.0100 #### [facility] [address] [place], [address] T PROT 7.5 g/dL Normal 5.9-8.4 [facility] Comment on above: Performed By: #### L 500.2500, L100.0100 #### [facility] [address] [place], [address] Urea nitrogen [Mass/Vol] 13 mg/dL Normal 4-19 [facility] Comment on above: Performed By: #### L 500.2500, L100.0100 #### [facility] [address] [place], [address] Emergency Department Summary on 07-08-2024 Emergency Department Summary [facility] Medical Records Department [address] [place] [address] Emergency Department Summary 07/08/24 MR#: [id number] Acct: [id number] Name: LM ALVARADO Rep #: [id number] : 1975 49 From: Vickie Louie DO [...] prior hysterectomy but still has her ovaries PFSH PFS Medical History (Updated 07/08/24 @ 21:13 by [...] to p (more content not included)... Normal [facility] Eosinophil percentageOrdered By: Vickie Louie on 07-08-2024 Eosinophils/100 WBC (Bld) 1.4 % 0-5 [facility] Epithelial cells.squamous LM Ql (Urine sed)Ordered By: Vickie Louie on 07-08-2024 Epithelial cells.squamous LM.HPF (Urine sed) [#/Area] 10 /[HPF] 5-10 [facility] Erythrocyte distribution wid th (RBC) [Ratio]Ordered By: Vickie Louie on 07-08-2024 Erythrocyte distribution width (RBC) [Entitic vol] 43.9 fL 35.1-43.9 [facility] Erythrocyte distribution wid th ratioOrdered By: [facility] on 07-08-2024 Erythrocyte distribution width (RBC) [Ratio] 13.3 % 11.6-14.6 [facility] Erythrocyte distribution wid th standard deviationOrdered By: [facility] on 07-08-2024 Erythrocyte distribution width (RBC) [Ratio] 43.9 fl 35.1-43.9 [facility] Estimation of creatinine everardo aranceOrdered By: Vickie Louie on 07-08-2024 Estimated Creatinine Clearance Calc 70.23 ml/min 50-250 [facility] GFR/1.73 sq M.predicted annaele g non-blacks MDRD (S/P/Bld) [Vol rate/Area]Ordered By: Vickie Louie on 07-08-2024 Estimated GFR (MDRD) Non-Af Amer 90 >60 [facility] Comment on above: mL/min/1.73m2 CKD-EP I Creatinine Equation (2020) Glomerular filtration rate ( GFR) estimation/1.73 sq m using serum, plasma, or whole bOrdered By: Vickie Louie on 07-08-2024 GFR/1.73 sq M.predicted among non-blacks MDRD (S/P/Bld) [Vol rate/Area] 90 mL/min/{1.73_m2} >60 [facility] Comment on above: mL/min/1.73m2 CKD-EP I Creatinine Equation (2020) Glucose Ql (U)Ordered By: Magda Louie on 07-08-2024 Urine Glucose (UA) Normal mg/dl Normal [facility] Hematocrit Auto (Bld) [Volum e fraction]Ordered By: Vickie Louie on 07-08-2024 Hematocrit (Bld) [Volume fraction] 44.1 % 37-47 [facility] Hemoglobin measurementOrdere d By: Vickie Louie on 07-08-2024 Hemoglobin (Bld) [Mass/Vol] 15.7 g/dL High 12.0-15.0 [facility] Immature granulocytes/100 WB C Auto (Bld)Ordered By: Vickie Louie on 07-08-2024 Immature granulocytes/100 WBC (Bld) 0.400 % 0.0-0.9 [facility] Comment on above: IG% - Immature Granu locytes (promyelocytes, myelocytes and metamyelocytes) > 1% indicates that a LEFT SHIFT is Present. Ketones Test strip Ql (U)Ord ered By: Vickie Louie on 07-08-2024 Ketones Ql (U) 5 mg/dl High Negative [facility] Laboratory - Chemistry and C hemistry - challengeOrdered By: Vickie Louie on 07-08-2024 AST [Catalytic activity/Vol] 17 U/L <32 [facility] Lactic Acidon 07-08-2024 Lactate [Moles/Vol] 1.1 mmol/L Normal 0.0-2.0 [facility] Comment on above: Order Comment: Y Performed By: #### L 500.2500, L100.0100 #### [facility] [address] [place], [address] Lactic acid measurementOrder ed By: Vickie Louie on 07-08-2024 Lactate [Moles/Vol] 1.1 mmol/L 0.0-2.0 [facility] Lymphocytes Auto (Unsp spec) [#/Vol]Ordered By: Vickie Louie on 07-08-2024 Lymphocytes (Bld) [#/Vol] 2.99 10*3/uL 0.83-4.51 [facility] Lymphocytes/100 WBC Auto (Un sp spec)Ordered By: Vickie Louie on 07-08-2024 Lymphocytes/100 WBC (Bld) 31.2 % 19-41 [facility] MCV (mean corpuscular volume ) determinationOrdered By: Vickie Louie on 07-08-2024 MCV (RBC) [Entitic vol] 90.4 fL 81-99 [facility] Mean corpuscular hemoglobin (MCH) determinationOrdered By: Vickie Louie on 07-08-2024 MCH (RBC) [Entitic mass] 32.2 pg High 27.0-32.0 [facility] Mean corpuscular hemoglobin concentration (MCHC) determinationOrdered By: Vickie Louie on 07-08-2024 MCHC (RBC) [Mass/Vol] 35.6 g/dL 32-36 [facility] Mean platelet volume determi nationOrdered By: Vickie Louie on 07-08-2024 Platelet mean volume (Bld) [Entitic vol] 9.3 fL 6.2-12.0 [facility] Microscopic analysis of urin e for red blood cells (RBC)Ordered By: Vickie Louie on 07-08-2024 Microscopic analysis of urine for red blood cells (RBC) 5-10 SEEN /hpf 0-5 [facility] Urine RBC 5-10 SEEN /hpf 0-5 [facility] Monocyte percentageOrdered B y: Vickie Louie on 07-08-2024 Monocytes/100 WBC (Bld) 7.5 % 0-10 [facility] Mucus LM Ql (Urine sed)Order ed By: Vickie Louie on 07-08-2024 Mucus Ql (Urine sed) 1+ /hpf [facility] Neutrophil percentageOrdered By: Vickie Louie on 07-08-2024 Neutrophils/100 WBC (Bld) 59.0 % 47-70 [facility] Nitrite Test strip Ql (U)Ord ered By: Vickie Louie on 07-08-2024 Nitrite Ql (U) Negative Negative [facility] Nucleated red blood cell per centageOrdered By: Vickie Louie on 07-08-2024 Nucleated RBC/100 WBC (Bld) [Ratio] 0 % 0-5 [facility] Pelvic w/ Transvaginalon Pelvic w/ Transvaginal [facility] Imaging Services [address] [place] [address] Pelvic w/ Transvaginal MR#: [id number] Acct: [id number] Name: LM ALVARADO Rep #: [id number] : 1975 F 49 From: Joan Cary nd, MD PCP: 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 Reading Location: [facility] CC: Dr. Vickie Louie DO Transportation Program Director: Signed Normal [facility] Platelet countOrdered By: Magda Louie on 07-08-2024 Platelets (Bld) [#/Vol] 283 10*3/uL 150-450 [facility] Potassium (Unsp spec) [Mass/ Vol]Ordered By: Vickie Louie on 07-08-2024 Potassium [Moles/Vol] 3.7 mmol/L 3.3-5.1 [facility] Potassium measurement (mass/ volume)Ordered By: Vickie Louie on 07-08-2024 Potassium (Unsp spec) [Mass/Vol] 3.7 mmol/L 3.3-5.1 [facility] Protein Test strip Ql (U)Ord ered By: Vickie Louie on 07-08-2024 Protein Ql (U) 15 mg/dl High Negative [facility] RBC Auto (Bld) [#/Vol]Ordere d By: Vickie Louie on 07-08-2024 RBC (Bld) [#/Vol] 4.88 10*6/uL 4.2-5.4 [facility] Serum creatinine measurement (mass/volume)Ordered By: Vickie Louie on 07-08-2024 Creatinine [Mass/Vol] 0.80 mg/dL 0.70-1.20 [facility] Serum globulin measurementOr dered By: Vickie Louie on 07-08-2024 Globulin (S) [Mass/Vol] 3.0 g/dL 2.2-4.2 [facility] Serum glucose measurement (m ass/volume)Ordered By: Vickie Louie on 07-08-2024 Glucose [Mass/Vol] 86 mg/dL 70-99 [facility] Serum or plasma alanine carter otransferase (ALT) measurementOrdered By: Vickie Louie on 07-08-2024 ALT [Catalytic activity/Vol] 10 U/L <35 [facility] Serum or plasma albumin dev urement (mass/volume)Ordered By: Vickie Louie on 07-08-2024 Albumin [Mass/Vol] 4.5 g/dL 3.5-5.0 [facility] Serum or plasma albumin/glob ulin mass ratioOrdered By: Vickie Louie on 07-08-2024 Albumin/Globulin [Mass ratio] 1.5 {ratio} 0.9-2.4 [facility] Serum or plasma alkaline [place] sphatase measurementOrdered By: Vickie Comeralisia on 07-08-2024 ALP [Catalytic activity/Vol] 56 U/L 35-104 [facility] Serum or plasma calcium dev urement (mass/volume)Ordered By: Rem Ungalisia on 07-08-2024 Calcium [Mass/Vol] 9.4 mg/dL 7.6-11.0 [facility] Serum or plasma urea nitroge n measurement (mass/volume)Ordered By: Remus Ungalisia on 07-08-2024 Urea nitrogen [Mass/Vol] 13 mg/dL 4-19 [facility] Sodium levelOrdered By: Fatumaclifton shahzad Jacy on 07-08-2024 Sodium [Moles/Vol] 136 mmol/L 133-145 [facility] Squamous epithelial cells de tection in urine sediment by light microscopyOrdered By: Vickie Comeralisia on 07-08-2024 Epithelial cells.squamous LM Ql (Urine sed) 10-25 SEEN /hpf 5-10 [facility] Total proteinOrdered By: Fatuma us Jacy on 07-08-2024 Protein [Mass/Vol] 7.5 g/dL 5.9-8.4 [facility] Transitional cells LM Ql (Ur ine sed)Ordered By: Remus Comeralisia on 07-08-2024 Urine Transitional Epithelial Cells 0-5 SEEN /hpf 0-5 [facility] Transitional cells detection in urine sediment by light microscopyOrdered By: Vickie Comeralisia on 07-08-2024 Transitional cells LM Ql (Urine sed) 0-5 SEEN /hpf 0-5 [facility] Urinalysis, Completeon 07-08 Mucus Ql (Urine sed) 1+ /hpf Normal [facility] Comment on above: Order Comment: CLEAN CATCH Performed By: #### L 500.2500, L100.0100 #### [facility] [address] [place], [address] RBC 5-10 SEEN Normal 0-5 [facility] Comment on above: Order Comment: CLEAN CATCH Performed By: #### L 500.2500, L100.0100 #### [facility] [address] [place], [address] WBC 0-5 SEEN Normal 0-5 [facility] Comment on above: Order Comment: CLEAN CATCH Performed By: #### L 500.2500, L100.0100 #### [facility] [address] [place], [address] BACTERIA 1+ /hpf Normal None Seen [facility] Comment on above: Order Comment: CLEAN CATCH Performed By: #### L 500.2500, L100.0100 #### [facility] [address] [place], [address] EPI,SQUAMOUS 10-25 SEEN Normal 5-10 [facility] Comment on above: Order Comment: CLEAN CATCH Performed By: #### L 500.2500, L100.0100 #### [facility] [address] [place], [address] EPI,TRANSITION 0-5 SEEN Normal 0-5 [facility] Comment on above: Order Comment: CLEAN CATCH Performed By: #### L 500.2500, L100.0100 #### [facility] [address] [place], [address] Urine blood detectionOrdered By: Vickie Louie on 07-08-2024 Urine Occult Blood 10 /ul High Negative [facility] Urine clarityOrdered By: Fatuma Louie on 07-08-2024 Clarity (U) Sl. Cloudy Clear [facility] Urine color determinationOrd ered By: Vickie Louie on 07-08-2024 Color (U) Yellow Yellow [facility] Urine glucose detectionOrder ed By: Vickie Louie on 07-08-2024 Glucose Ql (U) Normal mg/dl Normal [facility] Urine leukocyte esterase det ection by dipstickOrdered By: Vickie Louie on 07-08-2024 Leukocyte esterase Test strip Ql (U) 25 /ul High Negative [facility] Urine pHOrdered By: Vickie peguero on 07-08-2024 pH (U) 6.5 [pH] 5.0 - 8.0 [facility] Urine sediment bacteria coun t by microscopy (number/high power field)Ordered By: Vickie Louie on 07-08-2024 Bacteria LM.HPF (Urine sed) [#/Area] 1 /[HPF] None Seen [facility] Urine specific gravity measu rementOrdered By: Vickie Louie on 07-08-2024 Specific gravity (U) [Rel density] 1.015 1.002-1.030 [facility] Urine urobilinogen measureme ntOrdered By: Vickie Louie on 07-08-2024 Urobilinogen Ql (U) 1 mg/dl High Normal [facility] Urobilinogen Ql (U)Ordered B y: Remus Jacy on 07-08-2024 Urobilinogen (U) [Mass/Vol] 1 mg/dL High Normal [facility] White blood cell (WBC) count Ordered By: Vickie Louie on 07-08-2024 WBC (Bld) [#/Vol] 9.6 10*3/uL 4.4-11.0 [facility] White blood cell countOrdere d By: Vickie Louie on 07-08-2024 Urine WBC 0-5 SEEN /hpf 0-5 [facility] White blood cell count 0-5 SEEN /hpf 0-5 [facility] Absolute lymphocyte countOrd ered By: Mo Solo on 06-07-2024 Lymphocytes Auto (Unsp spec) [#/Vol] 2.09 10*3/uL 0.83-4.51 [facility] Absolute neutrophil countOrd ered By: Mo Solo on 06-07-2024 Neutrophils (Bld) [#/Vol] 5.6 10*3/uL 2.0-7.7 [facility] Automated lymphocyte count a s percentage of total leukocytesOrdered By: Mo Solo on 06-07-2024 Lymphocytes/100 WBC Auto (Unsp spec) 24.7 % 19-41 [facility] BUN/creatinine ratioOrdered By: Mo Solo on 06-07-2024 Urea nitrogen/Creatinine [Mass ratio] 17.9 mg/mg 10-20 [facility] Basic Metabolic Profile (BMP )on 06-07-2024 Anion gap [Moles/Vol] 9 mmol/L Normal 5-15 [facility] Comment on above: Performed By: #### L 500.2500, L100.0100 #### [facility] [address] [place], [address] BUN/CRE 17.9 RATIO Normal 10-20 [facility] Comment on above: Performed By: #### L 500.2500, L100.0100 #### [facility] [address] [place], [address] Calcium [Mass/Vol] 9.0 mg/dL Normal 7.6-11.0 [facility] Comment on above: Performed By: #### L 500.2500, L100.0100 #### [facility] [address] [place], [address] Chloride [Moles/Vol] 105 mmol/L Normal 96-108 [facility] Comment on above: Performed By: #### L 500.2500, L100.0100 #### [facility] [address] [place], [address] CO2 [Moles/Vol] 26.2 mmol/L Normal 22.0-29.0 [facility] Comment on above: Performed By: #### L 500.2500, L100.0100 #### [facility] [address] [place], [address] Creatinine [Mass/Vol] 0.68 mg/dL Low 0.70-1.20 [facility] Comment on above: Performed By: #### L 500.2500, L100.0100 #### [facility] [address] [place], [address] ECRCL 80.98 ml/min Normal 50-250 [facility] Comment on above: Performed By: #### L 500.2500, L100.0100 #### [facility] [address] [place], [address] GFR/1.73 sq M.predicted among non-blacks MDRD (S/P/Bld) [Vol rate/Area] 107 mL/min/{1.73_m2} Normal >60 [facility] Comment on above: Result Comment: mL/m in/1.73m2 CKD-EPI Creatinine Equation (2020) Performed By: #### L 500.2500, L100.0100 #### [facility] [address] [place], [address] Glucose [Mass/Vol] 95 mg/dL Normal 70-99 [facility] Comment on above: Performed By: #### L 500.2500, L100.0100 #### [facility] [address] [place], [address] Potassium [Moles/Vol] 4.0 mmol/L Normal 3.3-5.1 [facility] Comment on above: Performed By: #### L 500.2500, L100.0100 #### [facility] [address] [place], [address] Sodium [Moles/Vol] 141 mmol/L Normal 133-145 [facility] Comment on above: Performed By: #### L 500.2500, L100.0100 #### [facility] [address] [place], [address] Urea nitrogen [Mass/Vol] 12 mg/dL Normal 4-19 [facility] Comment on above: Performed By: #### L 500.2500, L100.0100 #### [facility] [address] [place], [address] Basophil percentageOrdered B y: Mo Solo on 06-07-2024 Basophils/100 WBC (Bld) 0.4 % 0-1 [facility] CBC W/Diff, Automatedon 03-0 Absolute Lymph 2.09 X10 3/uL Normal 0.83-4.51 [facility] Comment on above: Performed By: #### L 500.2500, L100.0100 #### [facility] [address] [place], [address] Absolute Neut 5.6 X10 3/uL Normal 2.0-7.7 [facility] Comment on above: Performed By: #### L 500.2500, L100.0100 #### [facility] [address] [place], [address] Basophils/100 WBC (Bld) 0.4 % Normal 0-1 [facility] Comment on above: Performed By: #### L 500.2500, L100.0100 #### [facility] [address] [place], [address] Eosinophils/100 WBC (Bld) 1.5 % Normal 0-5 [facility] Comment on above: Performed By: #### L 500.2500, L100.0100 #### [facility] [address] [place], [address] Erythrocyte distribution width (RBC) [Ratio] 12.7 % Normal 11.6-14.6 [facility] Comment on above: Performed By: #### L 500.2500, L100.0100 #### [facility] [address] [place], [address] Hematocrit (Bld) [Volume fraction] 40.1 % Normal 37-47 [facility] Comment on above: Performed By: #### L 500.2500, L100.0100 #### [facility] [address] [place], [address] Hemoglobin (Bld) [Mass/Vol] 13.9 g/dL Normal 12.0-15.0 [facility] Comment on above: Performed By: #### L 500.2500, L100.0100 #### [facility] [address] [place], [address] IG% 0.200 Normal 0.0-0.9 [facility] Comment on above: Result Comment: IG% - Immature Granulocytes (promyelocytes, myelocytes and metamyelocytes) > 1% indicates that a LEFT SHIFT is Present. Performed By: #### L 500.2500, L100.0100 #### [facility] [address] [place], [address] Lymphocytes/100 WBC (Bld) 24.7 % Normal 19-41 [facility] Comment on above: Performed By: #### L 500.2500, L100.0100 #### [facility] [address] [place], [address] MCH (RBC) [Entitic mass] 32.2 pg High 27.0-32.0 [facility] Comment on above: Performed By: #### L 500.2500, L100.0100 #### [facility] [address] [place], [address] MCHC (RBC) [Mass/Vol] 34.7 g/dL Normal 32-36 [facility] Comment on above: Performed By: #### L 500.2500, L100.0100 #### [facility] [address] [place], [address] MCV (RBC) [Entitic vol] 92.8 fL Normal 81-99 [facility] Comment on above: Performed By: #### L 500.2500, L100.0100 #### [facility] [address] [place], [address] Monocytes/100 WBC (Bld) 6.9 % Normal 0-10 [facility] Comment on above: Performed By: #### L 500.2500, L100.0100 #### [facility] [address] [place], [address] Neutrophils/100 WBC (Bld) 66.3 % Normal 47-70 [facility] Comment on above: Performed By: #### L 500.2500, L100.0100 #### [facility] [address] [place], [address] Nucleated RBC (Bld) [#/Vol] 0 10*3/uL Normal 0-5 [facility] Comment on above: Performed By: #### L 500.2500, L100.0100 #### [facility] [address] [place], [address] Platelet mean volume (Bld) [Entitic vol] 9.8 fL Normal 6.2-12.0 [facility] Comment on above: Performed By: #### L 500.2500, L100.0100 #### [facility] [address] [place], [address] Platelets (Bld) [#/Vol] 233 10*3/uL Normal 150-450 [facility] Comment on above: Performed By: #### L 500.2500, L100.0100 #### [facility] [address] [place], [address] RBC (Bld) [#/Vol] 4.32 10*6/uL Normal 4.2-5.4 [facility] Comment on above: Performed By: #### L 500.2500, L100.0100 #### [facility] [address] [place], [address] RDW SD 43.6 fl Normal 35.1-43.9 [facility] Comment on above: Performed By: #### L 500.2500, L100.0100 #### [facility] [address] [place], [address] WBC (Bld) [#/Vol] 8.5 10*3/uL Normal 4.4-11.0 [facility] Comment on above: Performed By: #### L 500.2500, L100.0100 #### [facility] [address] [place], [address] Carbon dioxide measurementOr dered By: Mo Solo on 06-07-2024 CO2 [Moles/Vol] 26.2 mmol/L 22.0-29.0 [facility] Chloride measurementOrdered By: Mo Solo on 06-07-2024 Chloride [Moles/Vol] 105 mmol/L 96-108 [facility] Emergency Department Summary on 06-07-2024 Emergency Department Summary [facility] Medical Records Department [address] [place] [address] Emergency Department Summary 06/07/24 MR#: [id number] Acct: [id number] Name: LM ALVARADO Rep #: [id number] : 1975 49 From: Mo Solo MD [...] that she has had since her injury. [facility] Medical History Irritable bowel syndrome History of [...] states that [facility] the [facility]. Of note, RN did notice her tearful, and contacted social work to speak with her regarding anxiety as well. In discussion with the case management social worker, patient has multiple available resources at the [facility] she [facility] staying and has close follow-up with 180 as well. This point in ti (more content not included)... Normal [facility] Eosinophil percentageOrdered By: Mo Solo on 06-07-2024 Eosinophils/100 WBC (Bld) 1.5 % 0-5 [facility] Erythrocyte distribution wid th (RBC) [Ratio]Ordered By: Mo Solo on 06-07-2024 Erythrocyte distribution width (RBC) [Entitic vol] 43.6 fL 35.1-43.9 [facility] Erythrocyte distribution wid th ratioOrdered By: oM Solo on 06-07-2024 Erythrocyte distribution width (RBC) [Ratio] 12.7 % 11.6-14.6 [facility] Erythrocyte distribution wid th standard deviationOrdered By: Mo Solo on 06-07-2024 Erythrocyte distribution width (RBC) [Ratio] 43.6 fl 35.1-43.9 [facility] Estimation of creatinine everardo aranceOrdered By: Mo Solo on 06-07-2024 Estimated Creatinine Clearance Calc 80.98 ml/min 50-250 [facility] GFR/1.73 sq M.predicted annalee g non-blacks MDRD (S/P/Bld) [Vol rate/Area]Ordered By: Mo Solo on 06-07-2024 Estimated GFR (MDRD) Non-Af Amer 107 >60 [facility] Comment on above: mL/min/1.73m2 CKD-EP I Creatinine Equation (2020) Glomerular filtration rate ( GFR) estimation/1.73 sq m using serum, plasma, or whole bOrdered By: Mo Solo on 06-07-2024 GFR/1.73 sq M.predicted among non-blacks MDRD (S/P/Bld) [Vol rate/Area] 107 mL/min/{1.73_m2} >60 [facility] Comment on above: mL/min/1.73m2 CKD-EP I Creatinine Equation (2020) Hematocrit Auto (Bld) [Volum e fraction]Ordered By: Mo Solo on 06-07-2024 Hematocrit (Bld) [Volume fraction] 40.1 % 37-47 [facility] Hemoglobin measurementOrdere d By: Mo Solo on 06-07-2024 Hemoglobin (Bld) [Mass/Vol] 13.9 g/dL 12.0-15.0 [facility] Immature granulocytes/100 WB C Auto (Bld)Ordered By: Mo Solo on 06-07-2024 Immature granulocytes/100 WBC (Bld) 0.200 % 0.0-0.9 [facility] Comment on above: IG% - Immature Granu locytes (promyelocytes, myelocytes and metamyelocytes) > 1% indicates that a LEFT SHIFT is Present. Lymphocytes Auto (Unsp spec) [#/Vol]Ordered By: Mo Solo on 06-07-2024 Lymphocytes (Bld) [#/Vol] 2.09 10*3/uL 0.83-4.51 [facility] Lymphocytes/100 WBC Auto (Un sp spec)Ordered By: Mo Solo on 06-07-2024 Lymphocytes/100 WBC (Bld) 24.7 % 19-41 [facility] MCV (mean corpuscular volume ) determinationOrdered By: Mo Solo on 06-07-2024 MCV (RBC) [Entitic vol] 92.8 fL 81-99 [facility] Mean corpuscular hemoglobin (MCH) determinationOrdered By: Mo Solo on 06-07-2024 MCH (RBC) [Entitic mass] 32.2 pg High 27.0-32.0 [facility] Mean corpuscular hemoglobin concentration (MCHC) determinationOrdered By: Mo Solo on 06-07-2024 MCHC (RBC) [Mass/Vol] 34.7 g/dL 32-36 [facility] Mean platelet volume determi nationOrdered By: Mo Solo on 06-07-2024 Platelet mean volume (Bld) [Entitic vol] 9.8 fL 6.2-12.0 [facility] Monocyte percentageOrdered B y: Mo Solo on 06-07-2024 Monocytes/100 WBC (Bld) 6.9 % 0-10 [facility] Neutrophil percentageOrdered By: Mo Solo on 06-07-2024 Neutrophils/100 WBC (Bld) 66.3 % 47-70 [facility] Nucleated red blood cell per centageOrdered By: Mo Solo on 06-07-2024 Nucleated RBC/100 WBC (Bld) [Ratio] 0 % 0-5 [facility] Platelet countOrdered By: Eliseo Solo on 06-07-2024 Platelets (Bld) [#/Vol] 233 10*3/uL 150-450 [facility] RBC Auto (Bld) [#/Vol]Ordere d By: Mo Solo on 06-07-2024 RBC (Bld) [#/Vol] 4.32 10*6/uL 4.2-5.4 [facility] Serum creatinine measurement (mass/volume)Ordered By: Mo Solo on 06-07-2024 Creatinine [Mass/Vol] 0.68 mg/dL Low 0.70-1.20 [facility] Serum glucose measurement (m ass/volume)Ordered By: Mo Solo on 06-07-2024 Glucose [Mass/Vol] 95 mg/dL 70-99 [facility] Serum or plasma anion gap de termination (moles/volume)Ordered By: Mo Solo on 06-07-2024 Anion gap [Moles/Vol] 9 mmol/L 5-15 [facility] Serum or plasma calcium dev urement (mass/volume)Ordered By: Mo Solo on 06-07-2024 Calcium [Mass/Vol] 9.0 mg/dL 7.6-11.0 [facility] Serum or plasma potassium me asurementOrdered By: Mo Solo on 06-07-2024 Potassium [Moles/Vol] 4.0 mmol/L 3.3-5.1 [facility] Serum or plasma sodium measu rement (moles/volume)Ordered By: Mo Solo on 06-07-2024 Sodium [Moles/Vol] 141 mmol/L 133-145 [facility] Serum or plasma urea nitroge n measurement (mass/volume)Ordered By: Mo Solo on 06-07-2024 Urea nitrogen [Mass/Vol] 12 mg/dL 4-19 [facility] White blood cell (WBC) count Ordered By: Mo Solo on 06-07-2024 WBC (Bld) [#/Vol] 8.5 10*3/uL 4.4-11.0 [facility] Brain/Head without Contrasto n 06-04-2024 Brain/Head without Contrast [facility] Imaging Services [address] [place], [place] [address] Brain/Head without Contrast MR#: [id number] Acct: [id number] Name: LM ALVARADO Rep #: [id number] : 1975 F 49 From: Corie Castro MD PCP: Status: REG ER Study: Brain/Head without Contrast Date of Exam: 05/10 10/30 Exam# [id number] Ordering Dr: Rik Marshall DO EXAM: Noncontrast [...] ethmoid sinus disease as above. Reading Location: [facility] CC: Dr. Rik Marshall DO Transportation Program Director: Signed Normal [facility] Emergency Department Summary on 06-04-2024 Emergency Department Summary [facility] Medical Records Department [address] [place] [address] Emergency Department Summary 06/04/24 MR#: [id number] Acct: [id number] Name: LM ALVARADO Rep #: [id number] : 1975 49 From: Richard Burgos MD [...] explanation. [facility] She complains of headache, photophobia, sonophobia. She reports nausea. She reports intermittent dizziness. She denies paresthesia, anesthesia or motor weakness. Prior similar symptoms: Yes Recent Illness/Hospitalization: Yes [facility] Medical History Irritable bowel syndrome History of [...] metronidazole (From Flagyl) Allergy Severe Anaphylaxis Verified 06/04/24 16:11 Surgical [...] MDM MDM (more content not included)... Normal [facility] Emergency Department Summary [facility] Medical Records Department [address] [place] [address] Emergency Department Summary 06/04/24 MR#: [id number] Acct: [id number] Name: LM ALVARADO Rep #: [id number] : 1975 49 From: Rik Abdalla PCP: [...] pains. She is on medications for bipolar. [facility] Medical History Irritable bowel syndrome History of [...] metronidazole (From Flagyl) Allergy Severe Anaphylaxis Verified 06/04/24 00:10 Surgical [...] further evaluati (more content not included)... Normal [facility] Spine Cervical without Contr ason 06-04-2024 Spine Cervical without Contras [facility] Imaging Services [address] [place] [address] Spine Cervical without Contras MR#: [id number] Acct: [id number] Name: LM ALVARADO Rep #: [id number] : 1975 F 49 From: Corie Castro MD PCP: Status: REG ER Study: Spine Cervical without Contras Date of Exam: 0 06/04/24 Exam# [id number] Ordering Dr: Rik Marshall DO PROCEDURE: SPINE [...] use of iterative reconstruction technique). Reading Location: [facility] CC: Dr. Rik Marshall DO Transportation Program Director: Signed Normal [facility] ED Provider Noteon ED Provider Note [facility] ED eMERGENCY dEPARTMENT eNCOUnter Pt Name: Lm [...] pharmacy. She (more content not included)... Normal [facility] No Panel Informationon 04-26 Karla Sam PA-C [...] documented as signed by this procedure note Fagoter(s): N/A No supervision required [facility] ED Provider Noteon ED Provider Note EMERGENCY DEPARTMENT ENCOUNTER Pt Name: Lm Alvarado Birthdate 1975 Date of evaluation: 04/01/2024 ED Provider: Hemal Choe DO CHIEF COMPLAINT Chief Complaint Patient presents with Back Pain Patient arrived to ED c/o back pain that radiates down left leg. States it is her sciatica. Pain 10/10 HISTORY OF PRESENT ILLNESS (Location/Symptom, Timing/Onset, Context/Setting, [...] Systems Pertinent positives and negatives as per [facility] PAST MEDICAL HISTORY Past Medical History: Diagnosis [...] injection 60 mg (60 mg IntraMUSCular Given 04/01/24 05) oxyCODONE (Roxicodone) immediate release tablet 5 mg [...] 5 mg (5 mg Oral Given 04/01/24555) Prescription drugs considered: PROCEDURES: Unless otherwise noted below, none Procedures CRITICAL CARE TIME FINAL IMPRESSION 1. Acute left-sided low back pain with left-sided sciatica DISPOSITION Discharge 04/01/2024 05:48:15 AM PATIENT REFERRED TO: Delano Mayen DO [address] [facility] [id number] if symptoms do not resolve DISCHARGE MEDICATIONS: Discharge Medication List as of 04/01/2024 5:52 AM START taking these medications Details lidocaine (Lidoderm) 5 % patch Apply 1 patch topically d (more content not included)... [facility] ED Provider Noteon ED Provider Note EMERGENCY [...] has increased pain. Patient has been taking lptu-apc-tnnjptl medications without significant improvement of symptoms Lm [...] Discharge 02/24/2024 07:58:37 PM PATIENT REFERRED TO: [address] [id number] DISCHARGE MEDICATIONS: Discharge Medication List as of 02/24/2024 8:02 PM START taking these medications (more content not included)... Normal [facility] Abdomen/Pelvis W IV Cont ONL Yon 02-20-2024 Abdomen/Pelvis W IV Cont ONLY [facility] Imaging Services [address] [place], [place] [address] Abdomen/Pelvis W IV Cont ONLY MR#: [id number] Acct: [id number] Name: LM MONACO Rep #: [id number] : 1975 F 48 From: Hossein Day MD PCP: Care Physician,No Primary Status: REG ER Study: Abdomen/Pelvis W IV Cont ONLY Date of Exam: Exam# [id number] Ordering Dr: Juan Lovell MD [id number] STUDY: CT ABDOMEN AND PELVIS WITH CONTRAST [...] at 19:57 EST , CC: Dr. Juan Lovell MD; No Primary Care Physician Transportation Program Director: Signed Normal [facility] CBC W/Diff, Automatedon 02-06 Absolute Lymph 3.30 X10 3/uL Normal 0.83-4.51 [facility] Comment on above: Performed By: #### L 500.2500, L100.0100 #### [facility] [address] [place], [address] Absolute Neut 5.9 X10 3/uL Normal 2.0-7.7 [facility] Comment on above: Performed By: #### L 500.2500, L100.0100 #### [facility] [address] [place], [address] Basophils/100 WBC (Bld) 0.4 % Normal 0-1 [facility] Comment on above: Performed By: #### L 500.2500, L100.0100 #### [facility] [address] [place], [address] Eosinophils/100 WBC (Bld) 1.6 % Normal 0-5 [facility] Comment on above: Performed By: #### L 500.2500, L100.0100 #### [facility] [address] [place], [address] Erythrocyte distribution width (RBC) [Ratio] 13.7 % Normal 11.6-14.6 [facility] Comment on above: Performed By: #### L 500.2500, L100.0100 #### [facility] [address] [place], [address] Hematocrit (Bld) [Volume fraction] 42.0 % Normal 37-47 [facility] Comment on above: Performed By: #### L 500.2500, L100.0100 #### [facility] [address] [place], [address] Hemoglobin (Bld) [Mass/Vol] 14.7 g/dL Normal 12.0-15.0 [facility] Comment on above: Performed By: #### L 500.2500, L100.0100 #### [facility] [address] [place], [address] IG% 0.300 Normal 0.0-0.9 [facility] Comment on above: Result Comment: IG% - Immature Granulocytes (promyelocytes, myelocytes and metamyelocytes) > 1% indicates that a LEFT SHIFT is Present. Performed By: #### L 500.2500, L100.0100 #### [facility] [address] [place], [address] Lymphocytes/100 WBC (Bld) 32.2 % Normal 19-41 [facility] Comment on above: Performed By: #### L 500.2500, L100.0100 #### [facility] [address] [place], [address] MCH (RBC) [Entitic mass] 32.2 pg High 27.0-32.0 [facility] Comment on above: Performed By: #### L 500.2500, L100.0100 #### [facility] [address] [place], [address] MCHC (RBC) [Mass/Vol] 35.0 g/dL Normal 32-36 [facility] Comment on above: Performed By: #### L 500.2500, L100.0100 #### [facility] [address] [place], [address] MCV (RBC) [Entitic vol] 92.1 fL Normal 81-99 [facility] Comment on above: Performed By: #### L 500.2500, L100.0100 #### [facility] [address] [place], [address] Monocytes/100 WBC (Bld) 7.9 % Normal 0-10 [facility] Comment on above: Performed By: #### L 500.2500, L100.0100 #### [facility] [address] [place], [address] Neutrophils/100 WBC (Bld) 57.6 % Normal 47-70 [facility] Comment on above: Performed By: #### L 500.2500, L100.0100 #### [facility] [address] [place], [address] Nucleated RBC (Bld) [#/Vol] 0 10*3/uL Normal 0-5 [facility] Comment on above: Performed By: #### L 500.2500, L100.0100 #### [facility] [address] [place], [address] Platelet mean volume (Bld) [Entitic vol] 9.1 fL Normal 6.2-12.0 [facility] Comment on above: Performed By: #### L 500.2500, L100.0100 #### [facility] [address] [place], [address] Platelets (Bld) [#/Vol] 307 10*3/uL Normal 150-450 [facility] Comment on above: Performed By: #### L 500.2500, L100.0100 #### [facility] [address] [place], [address] RBC (Bld) [#/Vol] 4.56 10*6/uL Normal 4.2-5.4 [facility] Comment on above: Performed By: #### L 500.2500, L100.0100 #### [facility] [address] [place], [address] RDW SD 46.8 fl High 35.1-43.9 [facility] Comment on above: Performed By: #### L 500.2500, L100.0100 #### [facility] [address] [place], [address] WBC (Bld) [#/Vol] 10.3 10*3/uL Normal 4.4-11.0 [facility] Comment on above: Performed By: #### L 500.2500, L100.0100 #### [facility] [address] [place], [address] Comprehensive Metabolic Prof ilon 02-20-2024 Albumin [Mass/Vol] 3.8 g/dL Normal 3.2-5.0 [facility] Comment on above: Performed By: #### L 500.2500, L100.0100 #### [facility] [address] [place], [address] Albumin/Globulin [Mass ratio] 1.2 {ratio} Normal 0.9-2.4 [facility] Comment on above: Performed By: #### L 500.2500, L100.0100 #### [facility] [address] [place], [address] ALK P 57 U/L Normal 45-117 [facility] Comment on above: Performed By: #### L 500.2500, L100.0100 #### [facility] [address] [place], [address] ALT [Catalytic activity/Vol] 19 U/L Normal 13-56 [facility] Comment on above: Performed By: #### L 500.2500, L100.0100 #### [facility] [address] [place], [address] AST [Catalytic activity/Vol] 10 U/L Low 15-37 [facility] Comment on above: Performed By: #### L 500.2500, L100.0100 #### [facility] [address] [place], [address] Bilirubin [Mass/Vol] 0.30 mg/dL Normal 0.20-1.00 [facility] Comment on above: Result Comment: For patients on eltrombopag therapy, use of Dimension [place] TBIL is not recommended. Performed By: #### L 500.2500, L100.0100 #### [facility] [address] [place], [address] BUN/CRE 12.9 RATIO Normal 10-20 [facility] Comment on above: Performed By: #### L 500.2500, L100.0100 #### [facility] [address] [place], [address] CA,Total 9.3 mg/dL Normal 8.5-10.1 [facility] Comment on above: Performed By: #### L 500.2500, L100.0100 #### [facility] [address] [place], [address] Chloride [Moles/Vol] 110 mmol/L High 98-107 [facility] Comment on above: Performed By: #### L 500.2500, L100.0100 #### [facility] [address] [place], [address] CO2 [Moles/Vol] 27.0 mmol/L Normal 21.0-32.0 [facility] Comment on above: Performed By: #### L 500.2500, L100.0100 #### [facility] [address] [place], [address] Creatinine [Mass/Vol] 0.85 mg/dL Normal 0.55-1.02 [facility] Comment on above: Result Comment: The validity of the calculated GFR GFRAA in patients over 70 years has not been determined. Clinical correlation is essential. Performed By: #### L 500.2500, L100.0100 #### [facility] [address] [place], [address] ECRCL 65.81 ml/min Normal [facility] Comment on above: Performed By: #### L 500.2500, L100.0100 #### [facility] [address] [place], [address] EST GFR - AA 91 mL/min Normal >60 [facility] Comment on above: Result Comment: Afri can Citizen [place] GFR Calc Performed By: #### L 500.2500, L100.0100 #### [facility] [address] [place], [address] GAP 5 Normal 5-15 [facility] Comment on above: Performed By: #### L 500.2500, L100.0100 #### [facility] [address] [place], [address] GFR/1.73 sq M.predicted among non-blacks MDRD (S/P/Bld) [Vol rate/Area] 75 mL/min/{1.73_m2} Normal >60 [facility] Comment on above: Result Comment: Non- GFR Calc Performed By: #### L 500.2500, L100.0100 #### [facility] [address] [place], [address] Globulin (S) [Mass/Vol] 3.2 g/dL Normal 2.2-4.2 [facility] Comment on above: Performed By: #### L 500.2500, L100.0100 #### [facility] [address] [place], [address] Glucose [Mass/Vol] 98 mg/dL Normal 74-106 [facility] Comment on above: Performed By: #### L 500.2500, L100.0100 #### [facility] [address] [place], [address] Potassium [Moles/Vol] 3.6 mmol/L Normal 3.5-5.1 [facility] Comment on above: Performed By: #### L 500.2500, L100.0100 #### [facility] [address] [place], [address] Sodium [Moles/Vol] 142 mmol/L Normal 136-145 [facility] Comment on above: Performed By: #### L 500.2500, L100.0100 #### [facility] [address] [place], [address] T PROT 7.0 g/dL Normal 6.4-8.2 [facility] Comment on above: Performed By: #### L 500.2500, L100.0100 #### [facility] [address] [place], [address] Urea nitrogen [Mass/Vol] 11 mg/dL Normal 7-18 [facility] Comment on above: Performed By: #### L 500.2500, L100.0100 #### [facility] [address] [place], [address] Emergency Department Summary on 02-20-2024 Emergency Department Summary [facility] Medical Records Department [address] [place] [address] Emergency Department Summary 02/20/24 MR#: [id number] Acct: [id number] Name: LM MONACO Rep #: [id number] : 1975 48 From: Juan Lovell MD PCP: Care Physician,No Primary Status:REG ER Location: ED HPI History of Present Illness Chief Complaint: General Illness Informant: patient Onset/Context/Timing Onset: Month(s) Context: Gradual Onset Timing: Continuous Current Severity: Mild Maximum Severity: Mild Narrative Narrative: 48-year-old female history of prior hysterectomy years ago. Was seen in the [facility] facilities about a month [...] Recent Illness/Hospitalization: No PFSH PFS Medical History History of pulmonary embolism Anxiety [...] Palpation: soft; (more content not included)... Normal [facility] Care Plan Noteon 01-31-2024 [employer] Authentication Interface Message Text Problem: Safety: Goal: Patient will remain free of falls during hospital stay Outcome: Adequate for Discharge Goal: Free from injury during hospitalization Outcome: Adequate for Discharge Problem: Ineffective Coping Strategies Goal: Victorianoa will be able to identify their triggers. Outcome: Adequate for Discharge Goal: Lalena will be able to identify their negative coping mechanisms. Outcome: Adequate for Discharge Goal: Lalena will be able to identify positive coping mechanisms. Outcome: Adequate for Discharge Goal: Lalena will enhance positive coping mechanisms. Outcome: Adequate for Discharge Goal: Laeditha will be able to verbalize their safety plan. Outcome: Adequate for Discharge Problem: Bipolar Disorder: Goal: Ability to stabilize mood will be demonstrated Outcome: Adequate for Discharge Problem: Psychiatric Follow Up Goal: Schedule psychiatric follow-up Outcome: Adequate for Discharge Normal [employer]iple Industrial Hygienist Authentication Interface Message Text Assumed care of [...] identify positive coping mechanisms. Outcome: Progressing Goal: Lm will enhance positive coping mechanisms. Outcome: Progressing Goal: Lm will be able to verbalize their safety plan. Outcome: Progressing Problem: Bipolar Disorder: Goal: Ability to stabilize mood will be demonstrated Outcome: Progressing Normal [employer] Noteon 01-31-2024 [employer]iple Industrial Hygienist Authentication Interface Message Text Self-Care Mental Health [...] Stefany Eller Behavioral Health Specialist Normal [employer] Hygienist Authentication Interface Message Text Therapeutic Discussions Group [...] Ophelia Lewis, Behavioral Health Specialist Normal [employer] Hygienist Authentication Interface Message Text Therapeutic Discussions Group [...] Ophelia Lewis, Behavioral Health Specialist Normal [employer] Authentication Interface Message Text Recreation AND Socialization [...] group participation. Danyell Jackson, RT Normal [employer] Assessment AND Plan Noteon 1 [employer]ist Authentication Interface Message Text PO supplement Normal [employer] Authentication Interface Message Text Per primary team Normal [employer] Interface Message Text - denies ZAMUDIO today -photophobia resolved; ? migraine, - assessed in ED and given compazine and Benadryl. As per pt it helped over night, but start hurting again in the morning - received dose of Imitrex yesterday - continue PRN Motrin q6h fro ZAMUDIO Normal [employer] Care Plan Noteon 01-30-2024 [employer] Hy[employer]ienist Authentication Interface Message Text Pt interview conducted [...] will be demonstrated Outcome: Progressing Normal [employer] Group Noteon 01-30-2024 [employer]iple Industrial Hygienist Authentication Interface Message Text Recreation AND Socialization [...] social with peers and completed group activity. BOOGIE Davis Normal [employer] Authentication Interface Message Text Recreation AND Socialization Group Session Group Date: 01/30/2024 Group Ratio: 1:3 Activity: Recreation Activity: Train Scot Goal: Increased Activity and Improved Physical Wellbeing Start time: 1230 End time: 1335 Lalena [place] Patient fully engaged in the activity for the time that she was in the group. Excellent effort toward group participation. She left the group early to talk with staff. RT Uriah Ryan [facility] Progress Noteson 01-30-2024 [employer]gienist Authentication Interface Message Text ----- Attestation signed [...] the resident's note. Cheryle Shanks MD ----- [facility] Inpatient - Progress Note Lm MONACO 48 year old White female Admission date: 01/28/2024 Length of stay: 1 day(s) Reason for Admission: Bipolar disorder, Off medication since March 2023 Interval Summary: 01/28: Abilify 10 mg, D/c Zoloft 50 01/29: Increase Abilify 15 mg, Add seroquel 25 mg bedtime SUBJECTIVE [facility] [place] [facility] [place] [facility], states poor sleep, she has been intermittently [...] DATE OF EXAM: Jan 20 2024 3:10PM [facility] 0530 - CT ABD/PEL W IVCON / [...] n (more content not included)... Normal [employer]iple Industrial Hygienist Authentication Interface Message Text Assumed care of [...] per ordered staff safety checks. Normal [employer] C-REACTIVE PROTEINon 024 CRP [Mass/Vol] mg/L Normal <0.5 [employer] Comment on above: Performed By: #### C RP, TSH HS, HEPATIC #### [facility] [address] [place] [address], [address] Care Plan Noteon 01-29-2024 [employer] Hygienist Authentication Interface Message Text Problem: Bipolar Disorder: [...] Yes READMISSION LESS THAN 30 DAYS: No @[id number]@ INTERVIEWED: Patient COGNITIVE STATUS: Oriented to person, place, time and location History of Mental Illness: Bipolar;Anxiety (PTSD) Psychosocial: Social Stressors : Mental health Past Psych Admissions: Yes How Many: 1 Most Recent Date: 04/08/18 (precise date unknown) Where: [facility] History of Self Harming Behaviors: No Patient [...] Coursework 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: [employer] / Plan: [employer] / Product Type: Indemnity History: No History of Abuse: No Legal History: Yes Current Probation [place] Contact: N/A Current Police Hold and Floor Aware: No Past Legal History: Patient endorses arrest in 2016, nothing noted on [facility] PATIENT TREATMENT PREFERENCES: Get back on meds, stablilize [employer]: Jain Family History: None that is diagnosed Child Safety Concerns: No TENTATIVE DISCHARGE PLAN: Home - Own READMISSION RISK SCORE SHOULD BE: Remain Unchanged REASON READMISSION SCORE NEEDS ADJUSTED: n/a Social Work Treatment Plan LIVING SITUATION: Home - Own Verified Able to Return: Yes Lapel Baster: Contact Name: Juan Relationship: Roommate Phone Number: Unknown at this time HOME HEALTH CARE PRIOR TO ADMISSION: No TRANSPORTATION TO AND/OR FROM APPOINTMENTS: Drives Self Current Providers: Other (comment) (None) Postmaster Relief Already Have a Postmaster Relief: No Support Person Do You Have a [...] sleep Strengths: Insight;Income;Housing Limitations: History of trauma;Non-adherence Saddle [employer] Harness Maker Impression: Lm Monaco presents as a 48 [...] be discharged to home, [address], [place], [place]. DANE verified address and phone number on file. Patient indicated a willingness to sign CORIE for Juan (roommate) and Sh (more content not included)... Normal [employer]iple Industrial Hygienist Authentication Interface Message Text Assumed care for [...] checks maintained. Problem: Ineffective Coping Strategies Goal: Lalena will be able to identify their triggers. Outcome: Not Progressing Goal: Lalena will be able to identify their negative coping mechanisms. Outcome: Not Progressing Goal: Lalena will be able to identify positive coping mechanisms. Outcome: Not Progressing Goal: Lalena will enhance positive coping mechanisms. Outcome: Not Progressing Note: Patient encouraged to attend mental health groups to learn and utilize coping skills to control behaviors. Goal: Lalena will be able to verbalize their safety plan. Outcome: Not Progressing Normal [employer]iple Industrial Hygienist Authentication Interface Message Text Patient did not attend group due to physical pain. Normal [employer] FULL LIPID PROFILEon 10-23-2 024 Cholesterol [Mass/Vol] 241 mg/dL High <200 [facility] Comment on above: Result Comment: Deanne chaidez: < 200 mg/dL Borderline High: 200-239 mg/dL High: > = 240 mg/dL Performed By: #### L IP, HEPATIC, CH8, HCG #### [facility] [address] [place] [address], Cholesterol in LDL [Mass/Vol] 176 mg/dL High <100 [facility] Comment on above: Performed By: #### L IP, HEPATIC, CH8, HCG #### [facility] [address] [place] [address], Cholesterol.total/Cho lesterol in HDL [Mass ratio] 4.73 {ratio} Normal <5.00 [facility] Comment on above: Performed By: #### L IP, HEPATIC, CH8, HCG #### [facility] [address] [place] [address], HDL CHOL 51 mg/dL Normal >50 [facility] Comment on above: Performed By: #### L IP, HEPATIC, CH8, HCG #### [facility] [address] [place] [address], LDL/HDL 3.45 Normal <3.57 [facility] Comment on above: Performed By: #### L IP, HEPATIC, CH8, HCG #### [facility] [address] [place] [address], NON-HDL CHOLESTEROL 190 mg/dL High <130 [facility] Comment on above: Performed By: #### L IP, HEPATIC, CH8, HCG #### [facility] [address] [place] [address], Triglyceride [Mass/Vol] 111 mg/dL Normal <150 [facility] Comment on above: Result Comment: Norm al: < 150 mg/dL Borderline High: 150-199 mg/dL High: 200-499 mg/dL Very High: > = 500 mg/dL Performed By: #### L IP, HEPATIC, CH8, HCG #### [facility] [address] [place] [address], Paresh 01-29-2024 [employer]iple Industrial Hygienist Authentication Interface Message Text PATIENT ADMISSION MENTAL HEALTH ASSESSMENT - ADULT PSYCHIATRY IDENTIFICATION: Lm MONACO is a single 48 year old White female. Occupation: employed. Patient seen alone. HISTORY OF PRESENT ILLNESS: Per triage: Hasn't slept for a year Per chart review: Office Visit yesterday with Brenda Cleary for Anxiety 09/03/22 ED Visit to [facility] 47 y.o. female presenting with concerns [...] got off her Depakote and was at [facility] for 11 days, at that she was discharged on Abilify and Zoloft, reports doing well on medications. No history of suicide ideations, attributes that to her jewish upbringing, currently reports being spiritual. Denied any current hallucinations or in the past. History of cigarette smoking, reports smoking 20 cigarettes daily, THC use, states THC helps her with her pain. Alcohol use occasionally. Mushroom use about 4- (more content not included)... Normal [facility] Principle Industrial Hygienist Authentication Interface Message Text ----- Attestation signed [...] a 48 year old female admitted to [facility]. I am performing the medical H AND [...] ac (more content not included)... Normal [facility] HEPATIC FUNCTION PANELon Albumin [Mass/Vol] 4.3 g/dL Normal 3.5-5.7 [facility] Comment on above: Performed By: #### C RP, TSH HS, HEPATIC #### [facility] [address] [place], [address] ALK 41 IU/L Normal 34-104 [facility] Comment on above: Performed By: #### C RP, TSH HS, HEPATIC #### [facility] [address] [place], [address] ALT [Catalytic activity/Vol] 9 U/L Normal 7-52 [facility] Comment on above: Performed By: #### C RP, TSH HS, HEPATIC #### [facility] [address] [place], [address] AST [Catalytic activity/Vol] 12 U/L Low 13-39 [facility] Comment on above: Performed By: #### C RP, TSH HS, HEPATIC #### [facility] [address] [place], [address] Bilirubin [Mass/Vol] 0.7 mg/dL Normal 0.3-1.0 [facility] Comment on above: Performed By: #### C RP, TSH HS, HEPATIC #### [facility] [address] [place], [address] Bilirubin.direct [Mass/Vol] 0.11 mg/dL Normal 0.03-0.18 [facility] Comment on above: Performed By: #### C RP, TSH HS, HEPATIC #### [facility] [address] [place], [address] Protein [Mass/Vol] 6.8 g/dL Normal 6.0-8.3 [facility] Comment on above: Performed By: #### C RP, TSH HS, HEPATIC #### [facility] [address] [place], [address] HEPATITIS B CORE ANTIBODYon 01-29-2024 CORE Non-Reactive Normal Nonreactive [facility] Comment on above: Performed By: #### L IP, HEPATIC, CH8, HCG #### [facility] [address] [place] [address], HEPATITIS B SURFACE ANTIBODY on 01-29-2024 ANTI-HBS < 3.1 Normal [facility] Comment on above: Order Comment: Nonre active: Samples < 7.5 mIU/mLReactive: Samples >/= 10.0 mIU/mLThe accepted criteria for immunity to HBV is anti-HBs activity >/= 10 mIU/mL, as defined by the WHO International Reference Preparation. Performed By: #### L IP, HEPATIC, CH8, HCG #### [facility] [address] [place] [address], HEPATITIS C ANTIBODYon 01-28 HCV Non-Reactive Normal Nonreactive [facility] Comment on above: Performed By: #### L IP, HEPATIC, CH8, HCG #### [facility] [address] [place], [place], HIV1 HIV2 AGAB SCRNon 2023 HIV AG-AB SCREEN Non-Reactive Normal Non-Reactive [employer] Comment on above: Order Comment: HIV Information: ???[place] Rev. code 3701.243(E): This information has been [...] #### h iv1 hiv2 agab scrn #### [facility] [address] [place], [place], Progress Noteson 01-29-2024 Principle Industrial Hygienist Authentication Interface Message Text Assumed care of patient and received report at 1930. PRN Trazodone given. Patient report ZAMUDIO/migraine, no intervention requested. Patient denies SI, HI, SIB, AV hallucinations. Assault AND elopement fall precautions maintained.6 minute safety checks maintained. Patient encouraged to make needs known. Normal [employer] Principle Industrial Hygienist Authentication Interface Message Text Patient did not attend Supports group today. Will continue to prompt for future groups. Stefany Eller Behavioral Health Specialist Normal [employer]iple Industrial Hygienist Authentication Interface Message Text Pt did not participate in community despite encouragement. Will continue to prompt for future groups. Normal [employer] Principle Industrial Hygienist Authentication Interface Message Text Patient admitted VOLUNTARY [...] encouraging pt to express needs. Normal [employer]iple Industrial Hygienist Authentication Interface Message Text Patient presently resting in room asleep. Medications for sleep, pain, and anxiety given with good results. Patient presently sleeping in room. Normal [employer] SYPHILIS WITH CONFIRMATIONon 01-29-2024 SYPHILIS TOTAL (IGG/IGM) Non-Reactive Normal Non-Reactive [employer] Comment on above: Order Comment: No re sults found for: TPPANo components found for: FTANo serologic evidence of syphilis.If recent exposure/early infection is suspected, repeat testing in 2-4 weeks. Performed By: #### L IP, HEPATIC, CH8, HCG #### [facility] [address] [place] [address], TPPA Normal [employer] Comment on above: Order Comment: No re sults found for: TPPANo components found for: FTANo serologic evidence of syphilis.If recent exposure/early infection is suspected, repeat testing in 2-4 weeks. Performed By: #### L IP, HEPATIC, CH8, HCG #### [facility] [address], [place], TSHon 01-29-2024 TSH 3.307 uIU/mL Normal 0.450-5.330 [facility] [employer] [facility] Comment on above: Result Comment: Refe alistair range for women as applicable: First Trimester: 0. 050 to 3.700 uIU/mL Second Trimester: 0. 310 to 4.350 uIU/mL Third Trimester: 0. 410 to 5.180 uIU/mL Performed By: #### C RP, TSH HS, HEPATIC ####[facility] [address] [place], [address] VITAMIN B12 (CYANOCOBALAMIN) on 01-29-2024 Cobalamin (Vitamin B12) [Mass/Vol] 337 pg/mL Normal 180-914 [facility] Comment on above: Order Comment: Defic ient: <= 145 pg/mLInsufficient: 145 - 180 pg/mLSufficient: 180 - 914 pg/mL Performed By: #### L IP, HEPATIC, CH8, HCG #### [facility] [address], [place], VITAMIN D, 25-HYDROXYon 01-07 VITD25 32.8 ng/mL Normal 30-100 [facility] Comment on above: Order Comment: Defic ient : <20.0 ng/mLInsufficient : 20.0-29.9 ng/mLSufficient : 30.0 - 100.0 ng/mLPotential Toxicity : >100.0 ng/mL Performed By: #### L IP, HEPATIC, CH8, HCG #### [facility] [address], [place], BASIC METABOLIC PANELon 01-07 Anion gap [Moles/Vol] 10 mmol/L Normal 10-20 [facility] Comment on above: Performed By: #### H EPATIC, ETOH, CH8, CK ####[facility] [address] [place], [address] Calcium [Mass/Vol] 9.4 mg/dL Normal 8.6-10.3 [facility] Comment on above: Performed By: #### H EPATIC, ETOH, CH8, CK ####[facility] [address] [place], [address] Chloride [Moles/Vol] 103 mmol/L Normal 98-107 [facility] Comment on above: Performed By: #### H EPATIC, ETOH, CH8, CK ####[facility] [address] [place], [address] CO2 [Moles/Vol] 29 mmol/L Normal 21-31 [facility] Comment on above: Performed By: #### H EPATIC, ETOH, CH8, CK ####[facility] [address] [place], [address] Creatinine [Mass/Vol] 0.97 mg/dL Normal 0.60-1.20 [facility] Comment on above: Performed By: #### H EPATIC, ETOH, CH8, CK ####[facility] [address] [place], [address] ESTIMATED GFR (CKD-EPI) 72 mL/min/1.73sqm Normal >=60 [...] Inclusion of Race in Diagnosing Kidney Disease. Citizen Of [place] Journal of Kidney Diseases 2021;79(2):268-88.e1. 2. N Engl J Med 1 Vol. 385 Issue 19 Pages 7253-4303 Performed By: #### H EPATIC, ETOH, CH8, CK ####[facility] [address] [place], [address] Glucose [Mass/Vol] 89 mg/dL Normal 74-109 [facility] Comment on above: Performed By: #### H EPATIC, ETOH, CH8, CK ####[facility] [address] [place], [address] Potassium [Moles/Vol] 3.7 mmol/L Normal 3.5-5.0 [facility] Comment on above: Performed By: #### Liss EPATIC, ETOH, CH8, CK ####[facility] [address] [place], [address] Sodium [Moles/Vol] 138 mmol/L Normal 136-145 [facility] Comment on above: Performed By: #### H EPATIC, ETOH, CH8, CK ####[facility] [address] [place], [address] Urea nitrogen [Mass/Vol] 15 mg/dL Normal 7-25 [facility] Comment on above: Performed By: #### H EPATIC, ETOH, CH8, CK ####[facility] [address] [place], [address] CBC WITH DIFFERENTIALon 01-07 Basophils (Bld) [#/Vol] 0.10 10*3/uL Normal 0.00-0.20 [facility] Comment on above: Performed By: #### C BCDSAT ####[facility] [address] [place], [address] Basophils/100 WBC (Bld) 0.8 % Normal <=1.9 [facility] Comment on above: Performed By: #### C BCDSAT ####[facility] [address] [place], [address] Eosinophils (Bld) [#/Vol] 0.20 10*3/uL Normal 0.00-0.70 [facility] Comment on above: Performed By: #### C BCDSAT ####[facility] [address] [place], [address] Eosinophils/100 WBC (Bld) 2.1 % Normal 0.1-4.0 [facility] Comment on above: Performed By: #### C BCDSAT ####[facility] [address] [place], [address] Erythrocyte distribution width (RBC) [Ratio] 13.8 % Normal 11.5-14.5 [facility] Comment on above: Performed By: #### C BCDSAT ####[facility] [address] [place], [address] Hematocrit (Bld) [Volume fraction] 44.2 % Normal 36.0-46.0 [facility] Comment on above: Performed By: #### C BCDSAT ####[facility] [address] [place], [address] Hemoglobin (Bld) [Mass/Vol] 15.4 g/dL High 12.0-15.0 [facility] Comment on above: Performed By: #### C BCDSAT ####[facility] [address] [place], [address] Lymphocytes (Bld) [#/Vol] 4.10 10*3/uL Normal 1.00-4.80 [facility] Comment on above: Performed By: #### C BCDSAT ####[facility] [address] [place], [address] Lymphocytes/100 WBC (Bld) 40.0 % Normal 24.0-44.0 [facility] Comment on above: Performed By: #### C BCDSAT ####[facility] [address] [place], [address] MCH (RBC) [Entitic mass] 32.8 pg Normal 26.0-34.0 [facility] Comment on above: Performed By: #### C BCDSAT ####[facility] [address] [place], [address] MCHC (RBC) [Mass/Vol] 34.8 g/dL Normal 32.0-35.9 [facility] Comment on above: Performed By: #### C BCDSAT ####[facility] [address] [place], [address] MCV (RBC) [Entitic vol] 94 fL Normal 80-100 [facility] Comment on above: Performed By: #### C BCDSAT ####[facility] [address] [place], [address] Monocytes (Bld) [#/Vol] 1.10 10*3/uL High 0.20-1.00 [facility] Comment on above: Performed By: #### C BCDSAT ####[facility] [address] [place], [address] Monocytes/100 WBC (Bld) 10.3 % Normal 2.0-11.0 [facility] Comment on above: Performed By: #### C BCDSAT ####[facility] [address] [place], [address] Neutrophils (Bld) [#/Vol] 4.80 10*3/uL Normal 1.50-8.00 [facility] Comment on above: Performed By: #### C BCDSAT ####[facility] [address] [place], [address] Neutrophils/100 WBC (Bld) 46.8 % Normal 31.0-76.0 [facility] Comment on above: Performed By: #### C BCDSAT ####[facility] [address] [place], [address] Nucleated RBC (Bld) [#/Vol] 10*3/uL Normal [facility] Comment on above: Performed By: #### C BCDSAT ####[facility] [address] [place], [address] Nucleated RBC (Bld) [#/Vol] 0.00 10*3/uL Normal [facility] Comment on above: Performed By: #### C BCDSAT ####[facility] [address] [place], [address] Platelet mean volume (Bld) [Entitic vol] 7.9 fL Normal 7.5-11.2 [facility] Comment on above: Performed By: #### C BCDSAT ####[facility] [address] [place], [address] Platelets (Bld) [#/Vol] 304 10*3/uL Normal 150-400 [facility] Comment on above: Performed By: #### C BCRETAAT ####[facility] [address] [place], [address] RBC (Bld) [#/Vol] 4.69 10*6/uL Normal 4.00-5.20 [facility] Comment on above: Performed By: #### C BCDSAT ####[facility] [address] [place], [address] WBC (Bld) [#/Vol] 10.2 10*3/uL Normal 4.5-11.5 [facility] Comment on above: Performed By: #### C BCDSAT ####[facility] [address] [place], [address] CREATINE KINASEon 01-28-2024 CK [Catalytic activity/Vol] 101 U/L Normal 30-233 [facility] Comment on above: Performed By: #### H EPATIC, ETOH, CH8, CK ####[facility] [address] [place], [address] ED Provider Maddie 01-27-20 24 [employer]ist Authentication Interface Message Text PSYCHIATRIC ED MENTAL [...] Cleary for Anxiety 09/03/22 ED Visit to [place] [address] y.o. female presenting with concerns for evaluation [...] be admitted and thus signed voluntary. Per [employer]: Filled Written ID Drug QTY Days Prescriber RX # Dispenser Refill Daily Dose* Pymt Type SOLID PROPELLANT PROCESSOR 01/14/2024 09/03/2023 2 Clonazepam 0.5 Mg Tablet 6.00 30 Ca Pop [id number] [facility] (4485) 0 0.20 LME Private [place] 07/19/2023 07/19/2023 1 Oxycodone-Acetaminophen 5-325 12.00 3 Ke Dim [id number] [facility] (0956) 0 30.00 M[place] Comm Ins [place] 07/01/2023 07/01/2023 1 Oxycodone-Acetaminophen 5-325 5.00 4 Marjorie Naw [id number] [facility] (7936) 0 9.38 M[place] Private [place] PSYCH PRNS RECEIVED in the ED: compazine 10 mg, benadryl 50 mg, trazodone 50 mg, tylenol III. REVIEW OF PAST AND PRESENT SYMPTOMS: Per HPI SUICIDE RISK ASSESSMENT C-SSRS [place]-Suicide Severity Rating Scale Able to complete [place]-Suicide Severity Rating Scale with Patient?: Yes 1) [...] conditio (more content not included)... Normal [facility] ETHANOL, SERUMon 01-28-2024 Ethanol [Mass/Vol] mg/dL Normal None Detected [facility] Comment on above: Performed By: #### H EPATIC, ETOH, CH8, CK ####[facility] [address] [place], [address] HEPATIC FUNCTION PANELon Albumin [Mass/Vol] 4.6 g/dL Normal 3.5-5.7 [facility] Comment on above: Performed By: #### H EPATIC, ETOH, CH8, CK ####[facility] [address] [place], [address] ALK 45 IU/L Normal 34-104 [facility] Comment on above: Performed By: #### H EPATIC, ETOH, CH8, CK ####[facility] [address] [place], [address] ALT [Catalytic activity/Vol] 9 U/L Normal 7-52 [facility] Comment on above: Performed By: #### H EPATIC, ETOH, CH8, CK ####[facility] [address] [place], [address] AST [Catalytic activity/Vol] 13 U/L Normal 13-39 [facility] Comment on above: Performed By: #### H EPATIC, ETOH, CH8, CK ####[facility] [address] [place], [address] Bilirubin [Mass/Vol] 0.5 mg/dL Normal 0.3-1.0 [facility] Comment on above: Performed By: #### H EPATIC, ETOH, CH8, CK ####[facility] [address] [place], [address] Bilirubin.direct [Mass/Vol] 0.07 mg/dL Normal 0.03-0.18 [facility] Comment on above: Performed By: #### H EPATIC, ETOH, CH8, CK ####[facility] [address] [place], [address] Protein [Mass/Vol] 7.1 g/dL Normal 6.0-8.3 [facility] Comment on above: Performed By: #### H EPATIC, ETOH, CH8, CK ####[facility] [address] [place], [address] TOXICOLOGY SCREEN, UNCONFIRM EDon 01-28-2024 AMPH Negative Normal Negative [facility] Comment on above: Order Comment: This toxicology [...] #### L IP, HEPATIC, CH8, HCG #### [facility] [address] [place] [address], [id number] BARBIT Negative Normal Negative [facility] Comment on above: Order Comment: This toxicology [...] HEPATIC, CH8, HCG #### [facility] [address] [place] [address], BENZO Negative Normal Negative [facility] Comment on above: Order Comment: This [...] HEPATIC, CH8, HCG #### [facility] [address] [place] [address], BUPRENORPHINE Negative Normal Cutoff: 5 [facility] [employer] [facility] Comment on above: Order Comment: This [...] HEPATIC, CH8, HCG #### [facility] [address] [place] [address], COCAINE CL Negative Normal Negative [facility] Comment on above: Order Comment: This [...] HEPATIC, CH8, HCG #### [facility] [address] [place] [address], Ethanol [Mass/Vol] Negative Normal Cutoff: 1 0 mg/dL [facility] [employer] [facility] Comment on above: Order Comment: This [...] HEPATIC, CH8, HCG #### [facility] [address] [place] [address], FENTANYL Negative Normal Negative [facility] [employer] [facility] Comment on above: Order Comment: This [...] HEPATIC, CH8, HCG #### [facility] [address] [place] [address], HYDROCODONE (PM) Negative Normal Negative [facility] [employer] [facility] Comment on above: Order Comment: This [...] HEPATIC, CH8, HCG #### [facility] [address] [place] [address], Methadone Ql (U) Negative Normal Negative [facility] [employer] [facility] Comment on above: Order Comment: This [...] HEPATIC, CH8, HCG #### [facility] [address] [place] [address], OPIATE Negative Normal Negative [facility] [employer] [facility] Comment on above: Order Comment: This [...] HEPATIC, CH8, HCG #### [facility] [address] [place] [address], OXYCODONE Negative Normal Cutoff: 100 [facility] [employer] [facility] Comment on above: Order Comment: This [...] HEPATIC, CH8, HCG #### [facility] [address] [place] [address], PHENCYCL Negative Normal Negative [facility] Comment on above: [...] HEPATIC, CH8, HCG #### [facility] [address] [place] [address], THC CL Positive Abnormal Negative [facility] [employer] [facility] Comment on above: Order Comment: This [...] HEPATIC, CH8, HCG #### [facility] [address] [place] [address], URINALYSISon 01-28-2024 Glucose Ql (U) Negative Normal Negative [facility] Comment on above: [...] HEPATIC, CH8, HCG #### [facility] [address] [place] [address], U APPEAR Slightly Cloudy Normal Clear [facility] Comment on above: Order [...] HEPATIC, CH8, HCG #### [facility] [address] [place] [address], U BILI Negative Normal Negative [facility] Comment on above: Order Comment: A [...] CH8, HCG #### [facility] [address] [place], [place], [place] BLOOD Negative Normal Negative [facility] Comment on above: [...] HEPATIC, CH8, HCG #### [facility] [address] [place] [address], U COLOR Yellow Normal Yellow [facility] Comment on above: Order Comment: A [...] HEPATIC, CH8, HCG #### [facility] [address] [place] [address], U KETONE Negative Normal Negative [facility] [employer] [facility] Comment on above: Order Comment: A [...] CH8, HCG #### [facility] [address] [place], [place], U LEUK Negative Normal Negative [facility] Comment on above: Order Comment: A [...] HEPATIC, CH8, HCG #### [facility] [address] [place] [address], U NITRITE Negative Normal Negative [facility] Comment on above: [...] CH8, HCG #### [facility] [address] [place], [place], [place] PH 7.0 Normal 5.0-8.0 [facility] Comment on above: Order Comment: A [...] CH8, HCG #### [facility] [address], [place], [place] PROTEIN Negative Normal Negative [facility] Comment on above: Order Comment: A [...] HEPATIC, CH8, HCG #### [facility] [address] [place] [address], U SG 1.020 Normal 1.005-1.030 [facility] Comment on above: Order Comment: A [...] HEPATIC, CH8, HCG #### [facility] [address] [place] [address], U UROBILI 0.2 mg/dL Normal 0.2 - 1.0 [facility] Comment on above: Order Comment: A [...] HEPATIC, CH8, HCG #### [facility] [address] [place] [address], ED NOTEon 01-23-2024 ED NOTE HNO ID: [id number] Author: MAT COLIN RN Service: ? Author Type: Registered Nurse Type: ED Notes Filed: 01/23/2024 00:34 Note Text: Patient given verbal and written instructions as pt is leaving AMA. Medications and follow up care discussed. Instructed to return to ED if conditions and symptoms persist or worsen. All questions addressed and answered pt verbalized understanding. NAD noted. [facility] ED NOTE HNO ID: [id number] Author: MAT COLIN RN Service: ? Author Type: Registered Nurse Type: ED Notes Filed: 01/23/2024 00:33 Note Text: Pt requesting to leave AMA. LIP aware. [facility] ALLIED HEALTHon 01-22-2024 ALLIED HEALTH HNO ID: [id number] Author: MARLENE ARELLANO RT(R) Service: Radiology Author [...] PATIENT PRESENTS WITH AN IMPLANTABLE OR ATTACHED RIP/MOULD OPERATOR: No ALLERGIES: Reviewed and unchanged CONTRAST [...] PERIPHERAL IV DATA: Inpatient - refer to LDA documentation RADIOLOGY DEPARTMENT: CT; Exam(s) Completed: Abdomen/Pelvis SIGNATURE: RT Quan(R) PATIENT NAME: Lm Monaco DATE: January 22, 2024 TIME: 10:14 PM [facility] CBC W Auto Differential pane l (Bld)on 01-22-2024 Basophils (Bld) [#/Vol] 0.05 10*3/uL Normal <0.11 [facility] Comment on above: Order Comment: Roberto mcpherson Type: BLOOD SPECIMEN Ordering Facility: [facility] Address: [address] [place] [address] Performed By: #### 5 7021-8 #### [facility] CLIA [id number] [address] [place] [address] [place] Basophils/100 WBC (Bld) 0.6 % Normal [facility] Comment on above: Order Comment: Roberto mcpherson Type: BLOOD SPECIMEN Ordering Facility: [facility] Address: [address] [place] [address] Performed By: #### 5 7021-8 #### [facility] CLIA [id number] [address] [place] [address] [place] Differential cell count method Nom (Bld) Auto Normal [facility] Comment on above: Order Comment: Speci men Type: BLOOD SPECIMEN Ordering Facility: [facility] Address: [address] [place] [address] Performed By: #### 5 7021-8 #### [facility] CLIA [id number] [address] [place] [address] [place] Eosinophils (Bld) [#/Vol] 0.14 10*3/uL Normal <0.46 [facility] Comment on above: Order Comment: Speci men Type: BLOOD SPECIMEN Ordering Facility: [facility] Address: [address] [place] [address] Performed By: #### 5 7021-8 #### [facility] CLIA [id number] [address] [place] [address] [place] Eosinophils/100 WBC (Bld) 1.6 % [facility] Comment on above: Order Comment: Speci men Type: BLOOD SPECIMEN Ordering Facility: [facility] Address: [address] [place] [address] Performed By: #### 5 7021-8 #### [facility] CLIA [id number] [address] [place] [address] [place] Erythrocyte distribution width (RBC) [Ratio] 13.3 % Normal 11.5-15.0 [facility] Comment on above: Order Comment: Speci men Type: BLOOD SPECIMEN Ordering Facility: [facility] Address: [address] [place] [address] Performed By: #### 5 7021-8 #### [facility] CLIA [id number] [address] [place] [address] [place] Hematocrit (Bld) [Volume fraction] 46.6 % High 36.0-46.0 [facility] Comment on above: Order Comment: Speci men Type: BLOOD SPECIMEN Ordering Facility: [facility] Address: [address] [place] [address] Performed By: #### 5 7021-8 #### [facility] CLIA [id number] [address] [place] [address] [place] Hemoglobin (Bld) [Mass/Vol] 16.1 g/dL High 11.5-15.5 [facility] Comment on above: Order Comment: Speci men Type: BLOOD SPECIMEN Ordering Facility: [facility] Address: [address] [place] [address] Performed By: #### 5 7021-8 #### [facility] CLIA [id number] [address] [place] [address] [place] Immature granulocytes (Bld) [#/Vol] 10*3/uL Normal <0.10 [facility] Comment on above: Order Comment: Speci men Type: BLOOD SPECIMEN Ordering Facility: [facility] Address: [address] [place] [address] Performed By: #### 5 7021-8 #### [facility] CLIA [id number] [address] [place] [address] [place] Immature granulocytes/100 WBC (Bld) 0.2 % Normal [facility] Comment on above: Order Comment: Speci men Type: BLOOD SPECIMEN Ordering Facility: [facility] Address: [address] [place] [address] Performed By: #### 5 7021-8 #### [facility] CLIA [id number] [address] [place] [address] [place] Lymphocytes (Bld) [#/Vol] 3.33 10*3/uL Normal 1.00-4.00 [facility] Comment on above: Order Comment: Speci men Type: BLOOD SPECIMEN Ordering Facility: [facility] Address: [address] [place] [address] Performed By: #### 5 7021-8 #### [facility] CLIA [id number] [address] [place] [address] [place] Lymphocytes/100 WBC (Bld) 38.7 % Normal [facility] Comment on above: Order Comment: Speci men Type: BLOOD SPECIMEN Ordering Facility: [facility] Address: [address] [place] [address] Performed By: #### 5 7021-8 #### [facility] CLIA [id number] [address] [place] [address] [place] [facility] MCH (RBC) [Entitic mass] 32.6 pg Normal 26.0-34.0 [facility] Comment on above: Order Comment: Speci men Type: BLOOD SPECIMEN Ordering Facility: [facility] Address: [address] [place] [address] Performed By: #### 5 7021-8 #### [facility] [place] [id number] [address] [place] [address] [place] MCHC (RBC) [Mass/Vol] 34.5 g/dL Normal 30.5-36.0 [facility] Comment on above: Order Comment: Speci men Type: BLOOD SPECIMEN Ordering Facility: [facility] Address: [address] [place] [address] Performed By: #### 5 7021-8 #### [facility] IA [id number] [address] [place] [address] [place] MCV (RBC) [Entitic vol] 94.3 fL Normal 80.0-100.0 [facility] Comment on above: Order Comment: Speci men Type: BLOOD SPECIMEN Ordering Facility: [facility] Address: [address] [place] [address] Performed By: #### 5 7021-8 #### [facility] [place] [id number] [address] [place] [address] [place] Monocytes (Bld) [#/Vol] 0.74 10*3/uL Normal <0.87 [facility] Comment on above: Order Comment: Speci men Type: BLOOD SPECIMEN Ordering Facility: [facility] Address: [address] [place] [address] Performed By: #### 5 7021-8 #### [facility] CLIA [id number] [address] [place] [address] [place] Monocytes/100 WBC (Bld) 8.6 % Normal [facility] Comment on above: Order Comment: Speci men Type: BLOOD SPECIMEN Ordering Facility: [facility] Address: [facility] [place] [address] Performed By: #### 5 7021-8 #### [facility] CLIA [id number] [address] [place] [address] [place] Neutrophils (Bld) [#/Vol] 4.33 10*3/uL Normal 1.45-7.50 [facility] Comment on above: Order Comment: Speci men Type: BLOOD SPECIMEN Ordering Facility: [facility] Address: [address] [place] [address] Performed By: #### 5 7021-8 #### [facility] CLIA [id number] [address] [place] [address] [place] Neutrophils/100 WBC (Bld) 50.3 % Normal [facility] Comment on above: Order Comment: Speci men Type: BLOOD SPECIMEN Ordering Facility: [facility] Address: [address] [place] [address] Performed By: #### 5 7021-8 #### [facility] CLIA [id number] [address] [place] [address] [place] Nucleated RBC (Bld) [#/Vol] 10*3/uL Normal <0.01 [facility] Comment on above: Order Comment: Speci men Type: BLOOD SPECIMEN Ordering Facility: [facility] Address: [address] [place] [address] Performed By: #### 5 7021-8 #### [facility] CLIA [id number] [address] [place] [address] [place] Nucleated RBC/100 WBC (Bld) [Ratio] 0.0 /100 WBC Normal [facility] Comment on above: Order Comment: Speci men Type: BLOOD SPECIMEN Ordering Facility: [facility] Address: [address] [place] [address] Performed By: #### 5 7021-8 #### [facility] CLIA [id number] [address] [place] [address] [place] Platelet mean volume (Bld) [Entitic vol] 9.2 fL Normal 9.0-12.7 [facility] Comment on above: Order Comment: Speci men Type: BLOOD SPECIMEN Ordering Facility: [facility] Address: [address] [place] [address] Performed By: #### 5 7021-8 #### [facility] CLIA [id number] [address] [place] [address] [place] Platelets (Bld) [#/Vol] 331 10*3/uL Normal 150-400 [facility] Comment on above: Order Comment: Speci men Type: BLOOD SPECIMEN Ordering Facility: [facility] Address: [address] [place] [address] Performed By: #### 5 7021-8 #### [facility] IA [id number] [address] [place] [address] [place] RBC (Bld) [#/Vol] 4.94 10*6/uL Normal 3.90-5.20 [facility] Comment on above: Order Comment: Speci men Type: BLOOD SPECIMEN Ordering Facility: [facility] Address: [address] [place] [address] Performed By: #### 5 7021-8 #### [facility] CLIA [id number] [address] [place] [address] [place] WBC (Bld) [#/Vol] 8.61 10*3/uL Normal 3.70-11.00 [facility] Comment on above: Order Comment: Speci men Type: BLOOD SPECIMEN Ordering Facility: [facility] Address: [address] [place] [address] Performed By: #### 5 7021-8 #### [facility] CLIA [id number] [address] [place] [address] [place] [address] ABD/PEL W IVCONon 10-16-[address] ABD/PEL W IVCON * * [...] Additional nonacute and incidental findings as described. Transportation Program Director: MARIAH Transcribe Date/Time: Jan 23 2024 2:16A Dictated by : EMA ASHFORD MD This examination was interpreted and the report reviewed and electronically signed by: EMA ASHFORD MD on Jan 23 2024 12:08AM EST This document has been addended by: EMA ASHFORD MD on Jan 23 2024 2:19AM EST [id number] [facility] Comprehensive metabolic 2000 panelon 01-22-2024 Albumin [Mass/Vol] 4.3 g/dL Normal 3.9-4.9 [facility] Comment on above: Order Comment: Speci men Type: BLOOD SPECIMEN Ordering Facility: [facility] Address: [address] [id number] Performed By: #### 2 4323-8, 3040-3, 13530-5 #### [facility] CLIA [id number] [address] [place], [place] [address] [place] ALP [Catalytic activity/Vol] 62 U/L Normal 34-123 [facility] Comment on above: Order Comment: Speci men Type: BLOOD SPECIMEN Ordering Facility: [facility] Address: [address] [place] [address] Performed By: #### 2 4323-8, 3040-3, 69067-0 #### [facility] CLIA [id number] [address] [place], [place] [address] [place] ALT [Catalytic activity/Vol] 10 U/L Normal 7-38 [facility] Comment on above: Order Comment: Speci men Type: BLOOD SPECIMEN Ordering Facility: [facility] Address: [address] [place] [address] Performed By: #### 2 4323-8, 3040-3, 31563-7 #### [facility] CLIA [id number] [address] [place] [address] [place] Anion gap [Moles/Vol] 9 mmol/L Normal 8-15 [facility] Comment on above: Order Comment: Speci men Type: BLOOD SPECIMEN Ordering Facility: [facility] Address: [address] [place] [address] Performed By: #### 2 4323-8, 3040-3, 96642-3 #### [facility] CLIA [id number] [address] [place], [place] [address] [place] AST [Catalytic activity/Vol] 17 U/L Normal 13-35 [facility] Comment on above: Order Comment: Speci men Type: BLOOD SPECIMEN Ordering Facility: [facility] Address: [address] [place] [address] Performed By: #### 2 4323-8, 3040-3, 69441-9 #### [facility] CLIA [id number] [address] [place] [address] [place] Bilirubin [Mass/Vol] 0.3 mg/dL Normal 0.2-1.3 [facility] Comment on above: Order Comment: Speci men Type: BLOOD SPECIMEN Ordering Facility: [facility] Address: [address] [place] [address] Performed By: #### 2 4323-8, 3040-3, #### [facility] CLIA [id number] [address] [place], [place] [address] [place] Calcium [Mass/Vol] 9.6 mg/dL Normal 8.5-10.2 [facility] Comment on above: Order Comment: Speci men Type: BLOOD SPECIMEN Ordering Facility: [facility] Address: [address] [place] [address] Performed By: #### 2 4323-8, 0-3, #### [facility] CLIA [id number] [address] [place] [address] [place] Chloride [Moles/Vol] 102 mmol/L Normal 98-107 [facility] Comment on above: Order Comment: Speci men Type: BLOOD SPECIMEN Ordering Facility: [facility] Address: [address] [place] [address] Performed By: #### 2 4323-8, 0-3, #### [facility] CLIA [id number] [address] [place], [place] [address] [place] CO2 [Moles/Vol] 30 mmol/L Normal 22-30 [facility] Comment on above: Order Comment: Speci men Type: BLOOD SPECIMEN Ordering Facility: [facility] Address: [address] [place] [address] Performed By: #### 2 4323-8, 3040-3, #### [facility] CLIA [id number] [address] [place], [place] [address] [place] Creatinine [Mass/Vol] 0.80 mg/dL Normal 0.58-0.96 [facility] Comment on above: Order Comment: Speci men Type: BLOOD SPECIMEN Ordering Facility: [facility] Address: [address] [place] [address] Performed By: #### 2 4323-8, 3040-3, 22652-7 #### [facility] CLIA [id number] [address] [place], [place] [address] [place] Creatinine and Glomerular filtration rate.predicted panel (S/P/Bld) 91 mL/min/1.73m??? Normal >=60 [facility] Comment on above: Order Comment: Roberto mcpherson Type: BLOOD SPECIMEN Ordering Facility: [facility] Address: [address] [place] [address] Result Comment: Ludy mated Glomerular Filtration Rate [...] GFR. Performed By: #### 2 4323-8, 3040-3, 84799-5 #### [facility] CLIA [id number] [address] [place], [place] [address] [place] Glucose [Mass/Vol] 92 mg/dL Normal 74-99 [facility] Comment on above: Order Comment: Roberto mcpherson Type: BLOOD SPECIMEN Ordering Facility: [facility] Address: [address] [place] [address] Result Comment: The [place] Diabetes Association (ADA) provides guidance for cutoff [...] Standards of Medical Care in Diabetes 2016, [place] Diabetes Association. Diabetes Care. 2016.39(Suppl 1). Performed By: #### 2 4323-8, 3040-3, 65591-9 #### [facility] CLIA [id number] [address] [place], [place] [address] [place] Potassium [Moles/Vol] 4.5 mmol/L Normal 3.7-5.1 [facility] Comment on above: Order Comment: Speci men Type: BLOOD SPECIMEN Ordering Facility: [facility] Address: [address] [place] [address] Performed By: #### 2 4323-8, 3040-3, 85459-6 #### [facility] CLIA [id number] [address] [place], [place] [address] [place] Protein [Mass/Vol] 7.5 g/dL Normal 6.3-8.0 [facility] Comment on above: Order Comment: Speci men Type: BLOOD SPECIMEN Ordering Facility: [facility] Address: [address] [place] [address] Performed By: #### 2 4323-8, 0-3, #### [facility] CLIA [id number] [address] [place], [place] [address] [place] Sodium [Moles/Vol] 141 mmol/L Normal 136-144 [facility] Comment on above: Order Comment: Speci men Type: BLOOD SPECIMEN Ordering Facility: [facility] Address: [address] [place] [address] Performed By: #### 2 4323-8, 0-3, #### [facility] CLIA [id number] [address] [place], [place] [address] [place] Urea nitrogen [Mass/Vol] 14 mg/dL Normal 7-21 [facility] Comment on above: Order Comment: Speci men Type: BLOOD SPECIMEN Ordering Facility: [facility] Address: [address] [place] [address] Performed By: #### 2 4323-8, 3040-3, 33963-9 #### [facility] CLIA [id number] [address] [place], [place] [address] [place] ED NOTEon 01-22-2024 ED NOTE HNO ID: [id number] Author: SPRING HALL RN Service: ? Author Type: Registered Nurse Type: ED Notes Filed: 01/22/2024 22:32 Note Text: Assumed pt care from previous RN. [facility] ED NOTE HNO ID: [id number] Author: NARESH HUNT RN Service: ? Author Type: Registered Nurse Type: ED Notes Filed: 01/22/2024 22:02 Note Text: Patient resting in bed in no acute distress. Bed in low, locked position and call light with in reach. Patient has no needs or complaints at this time. Plan of care ongoing. [facility] ED NOTE HNO ID: [id number] Author: NARESH HUNT RN Service: ? Author Type: Registered Nurse Type: ED Notes Filed: 01/22/2024 20:12 Note Text: Pt resting in bed in no acute distress. No needs or complaints at this time. Safety maintained with bed in low, locked position. [facility] ED NOTE HNO ID: [id number] Author: GORAN MILTON RN Service: ? Author Type: Registered Nurse Type: ED Notes Filed: 01/22/2024 18:30 Note Text: Pt has blood in stool x 2 day with nausea, [facility] wanted to admit for colonoscopy but pt was unable to. Pt states nausea is getting worse. [facility] ED PROV NOTEon 01-22-2024 ED PROV NOTE HNO ID: [id number] Author: HARRY CROSS MD Service: Emergency Medicine [...] in the presence of a female nurse lodge attendant. There were nonthrombosed external hemorrhoids noted. There [...] 01/23/24 0031 Others' Documentation Wed Jan 22, 20246 There was not enough stool for the lab to run the Hemoccult test. There was no gross blood on the test. [JS] 2327 Patient with persistent pain, Levsin ordered. [JS] ED Course User Index [JS] Lucius Morel, MADDY Clinical Impressions as of 01/23/24 0031 Right [...] Review External re (more content not included)... Normal [facility] ED Triage Noteon 01-22-2024 ED Triage Note HNO ID: [id number] Author: OLINDA MERCADO JR, MD Service: Emergency Medicine Author Type: Physician Type: ED Triage Notes Filed: 01/22/2024 18:35 Note Text: ED INTAKE NOTE Patient Name: Lm Monaco Service Date: 01/22/24 BRIEF HPI: This is a 48 year old female who presents to the ED with: Blood in stool for the past 2 days with nausea and abdominal pain. She was seen at [facility] and admission was recommended for colonoscopy but she was unable to. He states the nausea is getting worse. CT was done at [facility] on January 19 BRIEF EXAM: Unable to [...] HnP and MDM SIGNATURE: Olinda Mercado MD [facility] Lipase SerPl-cCncon 01-22-20 Lipase [Catalytic activity/Vol] 61 U/L Normal [facility] Comment on above: Order Comment: Speci men Type: BLOOD SPECIMEN Ordering Facility: [facility] Address: [address] [place] [address] Performed By: #### 2 4323-8, 3040-3, 63822-7 #### [facility] CLIA [id number] [address] [place], [place] [address] [place] Magnesium SerPl-mCncon 01-21 Magnesium [Mass/Vol] 2.2 mg/dL Normal 1.7-2.3 [facility] Comment on above: Order Comment: Speci men Type: BLOOD SPECIMEN Ordering Facility: [facility] Address: [address] [place] [address] Performed By: #### 2 4323-8, 3040-3, 95470-6 #### [facility] CLIA [id number] [address] [place], [place] [address] [place] Urinalysis complete panel (U )on 01-22-2024 Bilirubin Ql (U) Negative Normal Negative [facility] Comment on above: Order Comment: Speci men Type: URINE SPECIMEN Ordering Facility: [facility] Address: [address] [place] [address] Performed By: #### 2 4356-8 #### [facility] CLIA [id number] [address] [place] [address] [place] Clarity (Unsp spec) Clear Normal Clear [facility] Comment on above: Order Comment: Speci men Type: URINE SPECIMEN Ordering Facility: [facility] Address: [address] [place] [address] Performed By: #### 2 4356-8 #### [facility] CLIA [id number] [address] [place] [address] [place] Color (U) Yellow Normal Yellow [facility] Comment on above: Order Comment: Speci men Type: URINE SPECIMEN Ordering Facility: [facility] Address: [address] [place] [address] Performed By: #### 2 4356-8 #### [facility] CLIA [id number] [address] [place] [address] [place] Glucose Test strip (U) [Mass/Vol] Negative Normal Negative [facility] Comment on above: Order Comment: Speci men Type: URINE SPECIMEN Ordering Facility: [facility] Address: [address] [place] [address] Performed By: #### 2 4356-8 #### [facility] CLIA [id number] [address] [place] [address] [place] Hemoglobin Ql (U) Negative Normal Negative [facility] Comment on above: Order Comment: Speci men Type: URINE SPECIMEN Ordering Facility: [facility] Address: [address] [place] [address] Performed By: #### 2 4356-8 #### [facility] CLIA [id number] [address] [place] [address] [place] Ketones Ql (U) Negative Normal Negative [facility] Comment on above: Order Comment: Speci men Type: URINE SPECIMEN Ordering Facility: [facility] Address: [address] [place] [address] Performed By: #### 2 4356-8 #### [facility] CLIA [id number] [address] [place] [address] [place] Leukocyte esterase Test strip Ql (U) Negative Normal Negative [facility] Comment on above: Order Comment: Speci men Type: URINE SPECIMEN Ordering Facility: [facility] Address: [address] [place] [address] Performed By: #### 2 4356-8 #### [facility] CLIA [id number] [address] [place] [address] [place] Nitrite Ql (U) Negative Normal Negative [facility] Comment on above: Order Comment: Speci men Type: URINE SPECIMEN Ordering Facility: [facility] Address: [address] [place] [address] Performed By: #### 2 4356-8 #### [facility] CLIA [id number] [address] [place] [address] [place] pH (U) 6.0 [pH] Normal 5.0-8.0 [facility] Comment on above: Order Comment: Speci men Type: URINE SPECIMEN Ordering Facility: [facility] Address: [address] [place] [address] Performed By: #### 2 4356-8 #### [facility] CLIA [id number] [address] [place] [address] [place] Protein (U) [Mass/Vol] Negative Normal Negative [facility] Comment on above: Order Comment: Speci men Type: URINE SPECIMEN Ordering Facility: [facility] Address: [address] [place] [address] Performed By: #### 2 4356-8 #### [facility] CLIA [id number] [address] [place] [address] [place] RBC LM.HPF (Urine sed) [#/Area] 0-3 /HPF Normal 0-3 /HPF [facility] Comment on above: Order Comment: Speci men Type: URINE SPECIMEN Ordering Facility: [facility] Address: [address] [place] [address] Performed By: #### 2 4356-8 #### [facility] CLIA [id number] [address] [place], [place] [address] [place] Specific gravity (U) [Rel density] 1.025 Normal 1.005-1.030 [facility] Comment on above: Order Comment: Speci men Type: URINE SPECIMEN Ordering Facility: [facility] Address: [address] [place] [address] Performed By: #### 2 4356-8 #### [facility] CLIA [id number] [address] [place], [place] [address] [place] Urobilinogen Ql (U) 0.2 EU/dL Normal 0.2-1.0 EU/dL [facility] Comment on above: Order Comment: Speci men Type: URINE SPECIMEN Ordering Facility: [facility] Address: [address] [place] [address] Performed By: #### 2 4356-8 #### [facility] IA [id number] [address] [place] [address] [place] WBC LM.HPF (Urine sed) [#/Area] 0-5 /HPF Normal 0-5 /HPF [facility] Comment on above: Order Comment: Speci men Type: URINE SPECIMEN Ordering Facility: [facility] Address: [address] [place] [address] Performed By: #### 2 4356-8 #### [facility] IA [id number] [address] [place], [place] [address] [place] ALLIED HEALTHon 01-20-2024 ALLIED HEALTH HNO ID: [id number] Author: DRAKE WALDROP RT(Radhika) Service: ? Author Type: Technologist Type: Allied [...] PATIENT PRESENTS WITH AN IMPLANTABLE OR ATTACHED RIP/MOULD OPERATOR: No RADIOLOGY DEPARTMENT: CT; Exam(s) Completed: Abdomen/Pelvis PERIPHERAL IV DATA: Site assessment: Clean,Dry and Intact, Site disposition Left in for next appointment SIGNED BY: RT Anisa(R) January 20, 2024 3:08 PM [facility] CBC W Auto Differential pane l (Bld)on 01-20-2024 Basophils (Bld) [#/Vol] 0.03 10*3/uL Normal <0.11 [facility] Comment on above: Order Comment: Speci men Type: BLOOD SPECIMEN Ordering Facility[facility] Address: [address] [place] [address] Performed By: #### 5 7021-8 #### [facility] CLIA [id number] [address] [place] [address] [place] Basophils/100 WBC (Bld) 0.4 % Normal [facility] Comment on above: Order Comment: Speci men Type: BLOOD SPECIMEN Ordering Facility: [facility] Address: [address] [place] [address] Performed By: #### 5 7021-8 #### [facility] CLIA [id number] [address] [place] [address] [place] Differential cell count method Nom (Bld) Auto Normal [facility] Comment on above: Order Comment: Speci men Type: BLOOD SPECIMEN Ordering Facility: [facility] Address: [address] [place] [address] Performed By: #### 5 7021-8 #### [facility] CLIA [id number] [place] [address] [place] Eosinophils (Bld) [#/Vol] 0.14 10*3/uL Normal <0.46 [facility] Comment on above: Order Comment: Speci men Type: BLOOD SPECIMEN Ordering Facility: [facility] Address: [address] [place] [address] Performed By: #### 5 7021-8 #### [facility] CLIA [id number] [place] [address] [place] Eosinophils/100 WBC (Bld) 1.8 % Normal [facility] Comment on above: Order Comment: Speci men Type: BLOOD SPECIMEN Ordering Facility: [facility] Address: [address] [place] [address] Performed By: #### 5 7021-8 #### [facility] CLIA [id number] [place] [address] [place] Erythrocyte distribution width (RBC) [Ratio] 13.6 % Normal 11.5-15.0 [facility] Comment on above: Order Comment: Speci men Type: BLOOD SPECIMEN Ordering Facility: [facility] Address: [address] [place] [address] Performed By: #### 5 7021-8 #### [facility] CLIA [id number] [place] [address] [place] Hematocrit (Bld) [Volume fraction] 42.4 % Normal 36.0-46.0 [facility] Comment on above: Order Comment: Speci men Type: BLOOD SPECIMEN Ordering Facility: [facility] Address: [address] [place] [address] Performed By: #### 5 7021-8 #### [facility] CLIA [id number] [place] [address] [place] Hemoglobin (Bld) [Mass/Vol] 14.7 g/dL Normal 11.5-15.5 [facility] Comment on above: Order Comment: Speci men Type: BLOOD SPECIMEN Ordering Facility: [facility] Address: [address] [place] [address] Performed By: #### 5 7021-8 #### [facility] CLIA [id number] [place] [address] [place] Immature granulocytes (Bld) [#/Vol] 10*3/uL Normal <0.10 [facility] Comment on above: Order Comment: Speci men Type: BLOOD SPECIMEN Ordering Facility: [facility] Address: [address] [place] [address] Performed By: #### 5 7021-8 #### [facility] CLIA [id number] [place] [address] [place] Immature granulocytes/100 WBC (Bld) 0.3 % Normal [facility] Comment on above: Order Comment: Speci men Type: BLOOD SPECIMEN Ordering Facility: [facility] Address: [address] [place] [address] Performed By: #### 5 7021-8 #### [facility] CLIA [id number] [place] [address] [place] Lymphocytes (Bld) [#/Vol] 2.61 10*3/uL Normal 1.00-4.00 [facility] Comment on above: Order Comment: Speci men Type: BLOOD SPECIMEN Ordering Facility: [facility] Address: [address] [place] [address] Performed By: #### 5 7021-8 #### [facility] CLIA [id number] [place] [address] [place] Lymphocytes/100 WBC (Bld) 33.8 % Normal [facility] Comment on above: Order Comment: Speci men Type: BLOOD SPECIMEN Ordering Facility: [facility] Address: [address] [place] [address] Performed By: #### 5 7021-8 #### [facility] CLIA [id number] [place] [address] [place] MCH (RBC) [Entitic mass] 32.2 pg Normal 26.0-34.0 [facility] Comment on above: Order Comment: Speci men Type: BLOOD SPECIMEN Ordering Facility: [facility] Address: [address] [place] [address] Performed By: #### 5 7021-8 #### [facility] CLIA [id number] [place] [address] [place] MCHC (RBC) [Mass/Vol] 34.7 g/dL Normal 30.5-36.0 [facility] Comment on above: Order Comment: Speci men Type: BLOOD SPECIMEN Ordering Facility: [facility] Address: [address] [place] [address] Performed By: #### 5 7021-8 #### [facility] CLIA [id number] [place] [address] [place] MCV (RBC) [Entitic vol] 92.8 fL Normal 80.0-100.0 [facility] Comment on above: Order Comment: Speci men Type: BLOOD SPECIMEN Ordering Facility: [facility] Address: [address] [place] [address] Performed By: #### 5 7021-8 #### [facility] CLIA [id number] [place] [address] [place] Monocytes (Bld) [#/Vol] 0.63 10*3/uL Normal <0.87 [facility] Comment on above: Order Comment: Speci men Type: BLOOD SPECIMEN Ordering Facility: [facility] Address: [address] [place] [address] Performed By: #### 5 7021-8 #### [facility] CLIA [id number] [place] [address] [place] Monocytes/100 WBC (Bld) 8.2 % Normal [facility] Comment on above: Order Comment: Speci men Type: BLOOD SPECIMEN Ordering Facility[facility] Address: [address] [place] [address] Performed By: #### 5 7021-8 #### [facility] CLIA [id number] [place] [address] [place] Neutrophils (Bld) [#/Vol] 4.30 10*3/uL Normal 1.45-7.50 [facility] Comment on above: Order Comment: Speci men Type: BLOOD SPECIMEN Ordering Facility: [facility] Address: [address] [place] [address] Performed By: #### 5 7021-8 #### [facility] CLIA [id number] [place] [address] [place] Neutrophils/100 WBC (Bld) 55.5 % Normal [facility] Comment on above: Order Comment: Speci men Type: BLOOD SPECIMEN Ordering Facility: [facility] Address: [address] [place] [address] Performed By: #### 5 7021-8 #### [facility] CLIA [id number] [place] [address] [place] Nucleated RBC (Bld) [#/Vol] 10*3/uL Normal <0.01 [facility] Comment on above: Order Comment: Speci men Type: BLOOD SPECIMEN Ordering Facility: [facility] Address: [address] [place] [address] Performed By: #### 5 7021-8 #### [facility] CLIA [id number] [place] [address] [place] Nucleated RBC/100 WBC (Bld) [Ratio] 0.0 /100 WBC Normal [facility] Comment on above: Order Comment: Speci men Type: BLOOD SPECIMEN Ordering Facility: [facility] Address: [address] [place] [address] Performed By: #### 5 7021-8 #### [facility] CLIA [id number] [place] [address] [place] Platelet mean volume (Bld) [Entitic vol] 9.4 fL Normal 9.0-12.7 [facility] Comment on above: Order Comment: Speci men Type: BLOOD SPECIMEN Ordering Facility: [facility] Address: [address] [place] [address] Performed By: #### 5 7021-8 #### [facility] CLIA [id number] [place] [address] [place] Platelets (Bld) [#/Vol] 305 10*3/uL Normal 150-400 [facility] Comment on above: Order Comment: Speci men Type: BLOOD SPECIMEN Ordering Facility: [facility] Address: [address] [place] [address] Performed By: #### 5 7021-8 #### [facility] CLIA [id number] [place] [address] [place] RBC (Bld) [#/Vol] 4.57 10*6/uL Normal 3.90-5.20 [facility] Comment on above: Order Comment: Speci men Type: BLOOD SPECIMEN Ordering Facility: [facility] Address: [address] [place] [address] Performed By: #### 5 7021-8 #### [facility] CLIA [id number] [address] [place] [address] [place] WBC (Bld) [#/Vol] 7.73 10*3/uL Normal 3.70-11.00 [facility] Comment on above: Order Comment: Speci men Type: BLOOD SPECIMEN Ordering Facility: [facility] Address: [address] [place] [address] Performed By: #### 5 7021-8 #### [facility] CLIA [id number] [address] [place] [address] [place] [address] ABD/PEL W IVCONon -14-[address] ABD/PEL W IVCON * * *Final Report* * * DATE OF EXAM: Jan 20 2024 3:10PM [facility] 0530 - CT ABD/PEL W IVCON / [...] Jan 20 2024 3:25PM EST [id number] Normal [facility] Comprehensive metabolic 2000 panelon 01-20-2024 Albumin [Mass/Vol] 4.4 g/dL Normal 3.9-4.9 [facility] Comment on above: Order Comment: Speci men Type: BLOOD SPECIMEN Ordering Facility: [facility] Address: [address] [place] [address] Performed By: #### 2 4323-8, 32503-4, 3040-3 #### [facility] CLIA [id number] [address] [place] [address] [place] ALP [Catalytic activity/Vol] 57 U/L Normal 34-123 [facility] Comment on above: Order Comment: Speci men Type: BLOOD SPECIMEN Ordering Facility: [facility] Address: [address] [place] [address] Performed By: #### 2 4323-8, 10328-3, 0-3 #### [facility] CLIA [id number] [place] [id number] [place] ALT [Catalytic activity/Vol] 11 U/L Normal 7-38 [facility] Comment on above: Order Comment: Speci men Type: BLOOD SPECIMEN Ordering Facility: [facility] Address: [address] [place] [address] Performed By: #### 2 4323-8, , 0-3 #### [facility] CLIA [id number] [place] [address] [place] Anion gap [Moles/Vol] 12 mmol/L Normal 8-15 [facility] Comment on above: Order Comment: Speci men Type: BLOOD SPECIMEN Ordering Facility: [facility] Address: [address] [place] [address] Performed By: #### 2 4323-8, , 3 #### [facility] CLIA [id number] [place] [address] [place] AST [Catalytic activity/Vol] 13 U/L Normal 13-35 [facility] Comment on above: Order Comment: Speci men Type: BLOOD SPECIMEN Ordering Facility: [facility] Address: [address] [place] [address] Performed By: #### 2 4323-8, 62814-7, 0-3 #### [facility] CLIA [id number] [place] [id number] [place] Bilirubin [Mass/Vol] 0.4 mg/dL Normal 0.2-1.3 [facility] Comment on above: Order Comment: Speci men Type: BLOOD SPECIMEN Ordering Facility: [facility] Address: [address] [place], [place] [address] Performed By: #### 2 4323-8, 34805-0, 0-3 #### [facility] CLIA [id number] [place] [id number] [place] Calcium [Mass/Vol] 9.1 mg/dL Normal 8.5-10.2 [facility] Comment on above: Order Comment: Speci men Type: BLOOD SPECIMEN Ordering Facility: [facility] Address: [address] [place] [address] Performed By: #### 2 4323-8, , 0-3 #### [facility] CLIA [id number] [place] [id number] [place] Chloride [Moles/Vol] 102 mmol/L Normal 98-107 [facility] Comment on above: Order Comment: Speci men Type: BLOOD SPECIMEN Ordering Facility: [facility] Address: [address] [place] [address] Performed By: #### 2 4323-8, , 3039-3 #### [facility] CLIA [id number] [place] [id number] [place] CO2 [Moles/Vol] 24 mmol/L Normal 22-30 [facility] Comment on above: Order Comment: Speci men Type: BLOOD SPECIMEN Ordering Facility: [facility] Address: [address] [place] [address] Performed By: #### 2 4323-8, , 0-3 #### [facility] CLIA [id number] [place] [id number] [place] Creatinine [Mass/Vol] 0.75 mg/dL Normal 0.58-0.96 [facility] Comment on above: Order Comment: Speci men Type: BLOOD SPECIMEN Ordering Facility: [facility] Address: [address] [place] [address] Performed By: #### 2 4323-8, 39129-6, 0-3 #### [facility] CLIA [id number] [address] [place] [address] [place] Creatinine and Glomerular filtration rate.predicted panel (S/P/Bld) 98 mL/min/1.73m??? Normal >=60 [facility] Comment on above: Order Comment: Roberto mcpherson Type: BLOOD SPECIMEN Ordering Facility: [facility] Address: [address] [place] [address] Result Comment: Ludy mated Glomerular Filtration Rate [...] actual GFR. Performed By: #### 2 4323-8, 40441-6, 0-3 #### [facility] CLIA [id number] [address] [place] [address] [place] Glucose [Mass/Vol] 100 mg/dL High 74-99 [facility] Comment on above: Order Comment: Roberto mcpherson Type: BLOOD SPECIMEN Ordering Facility: [facility] Address: [address] [place] [address] Result Comment: The [place] Diabetes Association (ADA) provides guidance for cutoff [...] Standards of Medical Care in Diabetes 2016, [place] Diabetes Association. Diabetes Care. 2016.39(Suppl 1). Performed By: #### 2 4323-8, 45125-1, 0-3 #### [facility] CLIA [id number] [place], [place] [address] [place] Potassium [Moles/Vol] 4.0 mmol/L Normal 3.7-5.1 [facility] Comment on above: Order Comment: Speci men Type: BLOOD SPECIMEN Ordering Facility: [facility] Address: [address] [place] [address] Performed By: #### 2 4323-8, 96252-3, 0-3 #### [facility] CLIA [id number] [place] [id number] [place] Protein [Mass/Vol] 7.1 g/dL Normal 6.3-8.0 [facility] Comment on above: Order Comment: Speci men Type: BLOOD SPECIMEN Ordering Facility: [facility] Address: [address] [place] [address] Performed By: #### 2 4323-8, , 0-3 #### [facility] CLIA [id number] [place] [address] [place] Sodium [Moles/Vol] 138 mmol/L Normal 136-144 [facility] Comment on above: Order Comment: Speci men Type: BLOOD SPECIMEN Ordering Facility: [facility] Address: [address] [place] [address] Performed By: #### 2 4323-8, , 0-3 #### [facility] CLIA [id number] [place] [address] [place] Urea nitrogen [Mass/Vol] 10 mg/dL Normal 7-21 [facility] Comment on above: Order Comment: Speci men Type: BLOOD SPECIMEN Ordering Facility: [facility] Address: [address] [place] [address] Performed By: #### 2 4323-8, 76276-6, 0-3 #### [facility] CLIA [id number] [place] [address] [place] ED NOTEon 01-20-2024 ED NOTE HNO ID: [id number] Author: MAN GALVEZ RN Service: Emergency Medicine Author Type: Registered Nurse Type: ED Notes Filed: 01/20/2024 15:46 Note Text: IV removed, pt paperwork provided. Pt is ambulatory and not in distress at time of d/c [facility] ED NOTE HNO ID: [id number] Author: MAN GALVEZ, DEBRA Service: Emergency Medicine Author Type: Registered Nurse Type: ED Notes Filed: 01/20/2024 15:46 Note Text: Schedulers not available, pt instructed to call f/u for apt with gastro. [facility] ED NOTE HNO ID: [id number] Author: DANYELL CHRISTIE RN Service: ? Author [...] Pt sts blood clot r/t back surgery. [facility] ED PROV NOTEon 01-20-2024 ED PROV NOTE HNO ID: [id number] Author: SEFERINO PUGA DO Service: Emergency Medicine [...] abdominal surgical history. History provided by: Patient clinical education specialist used: No No past medical history on [...] nursing note reviewed. Exam conducted with a lodge attendant present (DEBRA Galvez present). Constitutional: General: She [...] No a (more content not included)... Normal [facility] Lipase SerPl-cCncon 01-20-20 24 Lipase [Catalytic activity/Vol] 83 U/L High 16-61 [facility] Comment on above: Order Comment: Roberto mcpherson Type: BLOOD SPECIMEN Ordering Facility[facility] Address: [address] [place] [address] Performed By: #### 2 4323-8, 48686-5, 3040-3 #### [facility] CLIA [id number] [place] [address] [place] Magnesium SerPl-mCncon 01-19 Magnesium [Mass/Vol] 2.3 mg/dL Normal 1.7-2.3 [facility] Comment on above: Order Comment: Roberto mcpherson Type: BLOOD SPECIMEN Ordering Facility: [facility] Address: [address] [place] [address] Performed By: #### 2 4323-8, 09952-7, 3040-3 #### [facility] CLIA [id number] [place] [address] [place] PT panel Coag (PPP)on 2023 INR Coag (PPP) [Relative time] 0.9 {INR} Normal 0.9-1.3 [facility] Comment on above: Order Comment: Roberto mcpherson Type: BLOOD SPECIMEN Ordering Facility[facility] Address: [address] [place] [address] Result Comment: Promise min K Antagonist (VKA) Therapeutic Range: INR 2 to 3 (Target INR of 2.5) Note: For patients treated with VKA drugs, such as warfarin, the [place] College of Chest Physicians 2012 Guideline recommends [...] 3.5 (target INR of 3). Pedro Pablo GH, et al. Chest 2012, 141:7S-47S Vikki RA et al. [facility] 2017, 70: 252-289 Performed By: #### 3 4528-0 #### [facility] CLIA [id number] [place], [place] [address] [place] PT Coag (PPP) [Time] 10.9 s Normal 9.7-13.0 [facility] Comment on above: Order Comment: Roberto mcpherson Type: BLOOD SPECIMEN Ordering Facility[facility] Address: [address] [place] [address] Performed By: #### 3 4528-0 #### [facility] CLIA [id number] [place] [address] [place] Urinalysis complete panel (U )on 01-20-2024 Bilirubin Ql (U) Negative Normal Negative [facility] Comment on above: Order Comment: Speci men Type: URINE SPECIMEN Ordering Facility: [facility] Address: [address] [place] [address] Performed By: #### 2 4356-8 #### [facility] CLIA [id number] [place] [address] [place] Clarity (Unsp spec) Clear Normal Clear [facility] Comment on above: Order Comment: Speci men Type: URINE SPECIMEN Ordering Facility[facility] Address: [address] [place] [address] Performed By: #### 2 4356-8 #### [facility] CLIA [id number] [place] [address] [place] Color (U) Yellow Normal Yellow [facility] Comment on above: Order Comment: Speci men Type: URINE SPECIMEN Order[facility] Facility[facility] Address: [address] [place] [address] Performed By: #### 2 4356-8 #### [facility] CLIA [id number] [address] [place] Glucose Test strip (U) [Mass/Vol] Negative Normal Negative [facility] Comment on above: Order Comment: Speci men Type: URINE SPECIMEN Order[facility] Facility[facility] Address: [address] [place] [address] Performed By: #### 2 4356-8 #### [facility] CLIA [id number] [place] [address] [place] Hemoglobin Ql (U) Negative Normal Negative [facility] Comment on above: Order Comment: Speci men Type: URINE SPECIMEN Order[facility] Address: [address] [place] [address] Performed By: #### 2 4356-8 #### [facility] CLIA [id number] [place] [address] [place] Ketones Ql (U) Negative Normal Negative [facility] Comment on above: Order Comment: Speci men Type: URINE SPECIMEN Order[facility] Address: [address] [place] [address] Performed By: #### 2 4356-8 #### [facility] CLIA [id number] [place] [address] [place] Leukocyte esterase Test strip Ql (U) Negative Normal Negative [facility] Comment on above: Order Comment: Speci men Type: URINE SPECIMEN Order[facility] Facility[facility] Address: [address] [place] [address] Performed By: #### 2 4356-8 #### [facility] CLIA [id number] [place] [address] [place] Nitrite Ql (U) Negative Normal Negative [facility] Comment on above: Order Comment: Speci men Type: URINE SPECIMEN Order[facility] Facility[facility] Address: [address] [place] [address] Performed By: #### 2 4356-8 #### [facility] CLIA [id number] [place] [address] [place] pH (U) 8.0 [pH] Normal 5.0-8.0 [facility] Comment on above: Order Comment: Speci men Type: URINE SPECIMEN Order[facility] Facility[facility] Address: [address] [place] [address] Performed By: #### 2 4356-8 #### [facility] CLIA [id number] [place] [address] [place] Protein (U) [Mass/Vol] Negative Normal Negative [facility] Comment on above: Order Comment: Speci men Type: URINE SPECIMEN Order[facility] Facility[facility] Address: [address] [place] [address] Performed By: #### 2 4356-8 #### [facility] CLIA [id number] [place] [address] [place] RBC LM.HPF (Urine sed) [#/Area] 0-3 /HPF Normal 0-3 /HPF [facility] Comment on above: Order Comment: Speci men Type: URINE SPECIMEN Order[facility] Facility[facility] Address: [address] [place] [address] Performed By: #### 2 4356-8 #### [facility] CLIA [id number] [place] [address] [place] Specific gravity (U) [Rel density] 1.010 Normal 1.005-1.030 [facility] Comment on above: Order Comment: Speci men Type: URINE SPECIMEN Ordering Facility[facility] Address: [address] [place] [address] Performed By: #### 2 4356-8 #### [facility] CLIA [id number] [address] [place] Urobilinogen Ql (U) 0.2 EU/dL Normal 0.2-1.0 EU/dL [facility] Comment on above: Order Comment: Speci men Type: URINE SPECIMEN Order[facility] Address: [address] [place] [address] Performed By: #### 2 4356-8 #### [facility] CLIA [id number] [address] [place] WBC LM.HPF (Urine sed) [#/Area] 0-5 /HPF Normal 0-5 /HPF [facility] Comment on above: Order Comment: Speci men Type: URINE SPECIMEN Order[facility] Facility[facility] Address: [address] [place] [address] Performed By: #### 2 4356-8 #### [facility] CLIA [id number] [place] [address] [place] BASIC METABOLIC PANELon 09- Anion gap [Moles/Vol] 12 mmol/L Normal 10-20 [facility] Comment on above: Performed By: #### C H8 ####[facility] [id number] [place] [address], Calcium [Mass/Vol] 8.5 mg/dL Low 8.6-10.3 [facility] Comment on above: Performed By: #### C H8 ####S PATHOLOG[facility] [id number] [place], [place], Chloride [Moles/Vol] 104 mmol/L Normal 98-107 [facility] Comment on above: Performed By: #### C H8 ####S PATHOLOG[facility] [id number] [place], CO2 [Moles/Vol] 25 mmol/L Normal 21-31 [facility] Comment on above: Performed By: #### C H8 ####S PATHOLOGY [id number] [place], [place], Creatinine [Mass/Vol] 0.72 mg/dL Normal 0.60-1.20 [facility] [employer] [facility] Comment on above: Performed By: #### C H8 ####S PATHOLOGY [id number] [place], ESTIMATED GFR (CKD-EPI) 103 mL/min/1.73sqm Normal >=60 [facility] Comment on above: Result Comment: 2020 [...] Inclusion of Race in Diagnosing Kidney Disease. [place] Journal of Kidney Diseases 2021;79(2):268-88.e1. 2. N Engl J Med 2020 Vol. 385 Issue 19 Pages 6046-1455 Performed By: #### C H8 ####[facility] [id number] [place], [place], Glucose [Mass/Vol] 101 mg/dL Normal 74-109 [facility] Comment on above: Performed By: #### C H8 ####[facility] [id number] [place], [place], Potassium [Moles/Vol] 4.0 mmol/L Normal 3.5-5.0 [facility] Comment on above: Performed By: #### C H8 ####S PATHOLOGY [id number] [place], [place], Sodium [Moles/Vol] 137 mmol/L Normal 136-145 [facility] Comment on above: Performed By: #### C H8 ####S PATHOLOGY [id number] [place], Urea nitrogen [Mass/Vol] 8 mg/dL Normal 7-25 [facility] Comment on above: Performed By: #### C H8 ####S PATHOLOGY [id number] [place], Anion gap [Moles/Vol] 8 mmol/L Low 10-20 [facility] Comment on above: Performed By: #### C R ICA #### [facility] [address] [place] [address], Calcium [Mass/Vol] 8.0 mg/dL Low 8.6-10.3 [facility] Comment on above: Performed By: #### C R ICA #### S [facility] LABORATORY [address] [place] [address], Chloride [Moles/Vol] 97 mmol/L Low 98-107 [facility] Comment on above: Performed By: #### C R ICA #### S [facility] LABORATORY [address] [place] [address], CO2 [Moles/Vol] 27 mmol/L Normal 21-31 [facility] Comment on above: Performed By: #### C R ICA #### [facility] [address] [place] [address], Creatinine [Mass/Vol] 0.70 mg/dL Normal 0.60-1.20 [facility] Comment on above: Performed By: #### C R ICA #### [facility]ORATORY [address] [place] [address], ESTIMATED GFR (CKD-EPI) 107 mL/min/1.73sqm Normal >=60 [facility] Comment on above: Result Comment: 2020 [...] Inclusion of Race in Diagnosing Kidney Disease. [place] Journal of Kidney Diseases 2021;79(2):268-88.e1. 2. N Engl J Med 1 Vol. 385 Issue 19 Pages 2975-5489 Performed By: #### C R ICA #### [facility] [address] [place] [address], Glucose [Mass/Vol] 85 mg/dL Normal 74-109 [facility] Comment on above: Performed By: #### C R ICA #### [facility] [address] [place] [address], Potassium [Moles/Vol] 3.9 mmol/L Normal 3.5-5.0 [facility] Comment on above: Performed By: #### C R ICA #### [facility] [address] [place] [address], Sodium [Moles/Vol] 128 mmol/L Low 136-145 [facility] Comment on above: Performed By: #### C R ICA #### [facility] [address] [place] [address], Urea nitrogen [Mass/Vol] 8 mg/dL Normal 7-25 [facility] Comment on above: Performed By: #### C R ICA #### [facility] [address] [place], [place], Anion gap [Moles/Vol] 9 mmol/L Low 10-20 [facility] Comment on above: Performed By: #### L IP, HEPATIC, CH8, HCG #### [facility] [address] [place], [place], Calcium [Mass/Vol] 5.7 mg/dL Critically low 8.6-10.3 [facility] Comment on above: Performed By: #### L IP, HEPATIC, CH8, HCG #### [facility] [address] [place], [place], Chloride [Moles/Vol] 118 mmol/L High 98-107 [facility] [employer] [facility] Comment on above: Performed By: #### L IP, HEPATIC, CH8, HCG #### [facility] [address] [place], CO2 [Moles/Vol] 20 mmol/L Low 21-31 [facility] Comment on above: Performed By: #### L IP, HEPATIC, CH8, HCG #### [facility] [address] [place], Creatinine [Mass/Vol] 0.41 mg/dL Low 0.60-1.20 [facility] Comment on above: Performed By: #### L IP, HEPATIC, CH8, HCG #### [facility] [address] [place], [place], ESTIMATED GFR (CKD-EPI) 121 mL/min/1.73sqm Normal >=60 [facility] [employer] [facility] Comment on above: Result Comment: 2020 [...] Inclusion of Race in Diagnosing Kidney Disease. [place] Journal of Kidney Diseases 2021;79(2):268-88.e1. 2. N Engl J Med 2020 Vol. 385 Issue 19 Pages 1359-3163 Performed By: #### L IP, HEPATIC, CH8, HCG #### [facility] [address] [place], [place], Glucose [Mass/Vol] 68 mg/dL Low 74-109 [facility] [employer] [facility] Comment on above: Performed By: #### L IP, HEPATIC, CH8, HCG #### [facility] [address] [place], [place], Potassium [Moles/Vol] 3.1 mmol/L Low 3.5-5.0 [facility] [employer] [facility] Comment on above: Result Comment: Hemo lysis present Performed By: #### L IP, HEPATIC, CH8, HCG #### [facility] [address] [place] [address], Sodium [Moles/Vol] 144 mmol/L Normal 136-145 [facility] Comment on above: Performed By: #### L IP, HEPATIC, CH8, HCG #### [facility] [address] [place] [address], Urea nitrogen [Mass/Vol] 7 mg/dL Normal 7-25 [facility] [employer] [facility] Comment on above: Performed By: #### L IP, HEPATIC, CH8, HCG #### [facility] [address] [place] [address], Basic metabolic 2000 panelOr dered By: Yohannes Dillon on 12-20-2023 Anion gap [Moles/Vol] 12 mmol/L 10 - 20 Met [facility] Calcium [Mass/Vol] 8.5 mg/dL Low 8.6 - [...] Inclusion of Race in Diagnosing Kidney Disease. Citizen [place] Journal of Kidney Diseases 202;79(2):268-88.e1. 2. N Engl J Med 2020 Vol. 385 Issue 19 Pages [phone] Glucose [Mass/Vol] 101 mg/dL 74 - 109 [...] Inclusion of Race in Diagnosing Kidney Disease. Citizen [place] Journal of Kidney Diseases 2021;79(2):268-88.e1. 2. N Engl J Med 2020 Vol. 385 Issue 19 Pages [phone] Glucose [Mass/Vol] 85 mg/dL 74 - 109 mg/dL [facility] Interpretation and review of laboratory results Abnormal [facility] Potassium [Moles/Vol] 3.9 mmol/L 3.5 - 5.0 mmol/L [facility] Sodium [Moles/Vol] 128 mmol/L Low 136 - 145 mmol/L [facility] Urea nitrogen [Mass/Vol] 8 mg/dL 7 - 25 mg/dL [facility] Basic metabolic 1999 panelOr dered By: Nereyda Soto on 12-20-2023 Anion gap [Moles/Vol] 9 mmol/L Low 10 - 20 Met [facility] Calcium [Mass/Vol] 5.7 mg/dL Critically low 8.6 - 1 0.3 mg/dL [facility] Chloride [Moles/Vol] 118 mmol/L High 98 - 10 7 mmol/L [facility] CO2 [Moles/Vol] 20 mmol/L Low 21 - 31 mmol/L [facility] Creatinine [Mass/Vol] 0.41 mg/dL Low 0.60 - 1.20 mg/dL [facility] GFR/1.73 sq M.predicted CKD-EPI (S/P/Bld) [Vol rate/Area] 121 - PINF [facility] Comment on above: 2020 CKD EPI Equatio [...] Inclusion of Race in Diagnosing Kidney Disease. Citizen [place] Journal of Kidney Diseases 202;79(2):268-88.e1. 2. N Engl J Med 1 Vol. 385 Issue 19 Pages 5282-0351 Glucose [Mass/Vol] 68 mg/dL Low 74 - [...] 1.08 mmol/L Low 1.15 - 1.33 mmol/L [facility] Comment on above: This test was develo ped, and its performance characteristics determined by the Department of Pathology of [facility]. It has not been cleared or approved by the FDA. This test is used for clinical purposes only. Interpretation and review of laboratory results Abnormal [facility] CALCIUM, IONIZEDon CR ICA 1.08 mmol/L Low 1.15-1.33 [facility] Comment on above: Result Comment: This test was developed, and its performance characteristics determined by the Department of Pathology of The [facility]. It has not been cleared or approved by the FDA. This test is used for clinical purposes only. Performed By: #### C R ICA #### [facility] [address] [place] [address], [id number] CBC WITH DIFFERENTIALon 12-07 Basophils (Bld) [#/Vol] [...] [Mass/Vol] 14.5 g/dL 12.0 - 15.0 g/dL [facility] Interpretation and review of laboratory results Abnormal [...] (Bld) [#/Vol] 0.09 10*3/uL Normal 0.00-0.20 [facility] Comment on above: Performed By: #### L IP, HEPATIC, CH8, HCG #### [facility] [address] [place] [address], Basophils/100 WBC (Bld) 1.0 % Normal <=1.9 [facility] Comment on above: Performed By: #### L IP, HEPATIC, CH8, HCG #### S [facility] [address] [place] [address], Eosinophils (Bld) [#/Vol] 0.12 10*3/uL Normal 0.00-0.70 [facility] Comment on above: Performed By: #### L IP, HEPATIC, CH8, HCG #### S [facility] [address] [place] [address], Eosinophils/100 WBC (Bld) 1.2 % Normal 0.1-4.0 [facility] Comment on above: Performed By: #### L IP, HEPATIC, CH8, HCG #### S [facility] [address] [place] [address], Erythrocyte distribution width (RBC) [Ratio] 14.0 % Normal 11.5-14.5 [facility] Comment on above: Performed By: #### L IP, HEPATIC, CH8, HCG #### S [facility] [address] [place] [address], Hematocrit (Bld) [Volume fraction] 42.6 % Normal 36.0-46.0 [facility] Comment on above: Performed By: #### L IP, HEPATIC, CH8, HCG #### [facility] [address] [place] [address], Hemoglobin (Bld) [Mass/Vol] 14.5 g/dL Normal 12.0-15.0 [facility] Comment on above: Performed By: #### L IP, HEPATIC, CH8, HCG #### [facility] [address] [place] [address], Lymphocytes (Bld) [#/Vol] 2.77 10*3/uL Normal 1.00-4.80 [facility] Comment on above: Performed By: #### L IP, HEPATIC, CH8, HCG #### S [facility] [address] [place] [address], Lymphocytes/100 WBC (Bld) 28.7 % Normal 24.0-44.0 [facility] Comment on above: Performed By: #### L IP, HEPATIC, CH8, HCG #### [facility] [address] [place] [address], MCH (RBC) [Entitic mass] 32.2 pg Normal 26.0-34.0 [facility] Comment on above: Performed By: #### L IP, HEPATIC, CH8, HCG #### S [facility] [address] [place] [address], MCHC (RBC) [Mass/Vol] 34.0 g/dL Normal 32.0-35.9 [facility] Comment on above: Performed By: #### L IP, HEPATIC, CH8, HCG #### S [facility] [address] [place] [address], MCV (RBC) [Entitic vol] 95 fL Normal 80-100 [facility] Comment on above: Performed By: #### L IP, HEPATIC, CH8, HCG #### S [facility] [address] [place] [address], MONOCYTE DISTRIBUTION WIDTH 23 High <=20 [facility] Comment on above: Performed By: #### L IP, HEPATIC, CH8, HCG #### [facility] [address] [place] [address], Monocytes (Bld) [#/Vol] 0.75 10*3/uL Normal 0.20-1.00 [facility] Comment on above: Performed By: #### L IP, HEPATIC, CH8, HCG #### [facility] [address] [place], [place], Monocytes/100 WBC (Bld) 7.8 % Normal 2.0-11.0 [facility] Comment on above: Performed By: #### L IP, HEPATIC, CH8, HCG #### [facility] [address] [place] [address], Neutrophils (Bld) [#/Vol] 5.91 10*3/uL Normal 1.50-8.00 [facility] Comment on above: Performed By: #### L IP, HEPATIC, CH8, HCG #### [facility] [address] [place], [place], Neutrophils/100 WBC (Bld) 61.3 % Normal 31.0-76.0 [facility] Comment on above: Performed By: #### L IP, HEPATIC, CH8, HCG #### [facility] [address] [place], [place], Platelet mean volume (Bld) [Entitic vol] 7.8 fL Normal 7.5-11.2 [facility] Comment on above: Performed By: #### L IP, HEPATIC, CH8, HCG #### [facility] [address] [place], [place], Platelets (Bld) [#/Vol] 269 10*3/uL Normal 150-400 [facility] Comment on above: Performed By: #### L IP, HEPATIC, CH8, HCG #### [facility] [address] [place], [place], RBC (Bld) [#/Vol] 4.50 10*6/uL Normal 4.00-5.20 [facility] [employer] [facility] Comment on above: Performed By: #### L IP, HEPATIC, CH8, HCG #### [facility] [address], [place], WBC (Bld) [#/Vol] 9.6 10*3/uL Normal 4.5-11.5 [facility] [employer] [facility] Comment on above: Performed By: #### L IP, HEPATIC, CH8, HCG #### [facility] [address] [place], [place], CT ABD/PELVIS ED I/V EUGENIA W [...] versus soft tissue mass. Left ovarian hypodensities access representative of ovarian cysts/follicles measuring up to [...] suggestive of cysts/follicles. MACRO: None Normal [facility] [employer] [facility] CT Abdomen and Pelvis W cont rast IVOrdered By: Davide Cerda on 12-20-2023 CT DLP 315.3 (mGy.cm) bttn h Work Phone: CT Series Abdomen [employer] Work Phone: CTDI VOL 6.8 (mGy) [employer] Work Phone: PHANTOM TYPE IEC Body Dosimetry Phantom [employer] Work Phone: [employer] Work Phone: CT Abdomen and Pelvis W [...] versus soft tissue mass. Left ovarian hypodensities access representative of ovarian cysts/follicles measuring up to [...] versus soft tissue mass. Left ovarian hypodensities access representative of ovarian cysts/follicles measuring up to [...] cystic lesions suggestive of cysts/follicles. MACRO: None [employer] ED Noteson 12-20-2023 [employer] Authentication Interface Message Text notified of critical CALCIUM value of 5.7. Hard copy of results given to . Normal [facility] [employer] [facility] ED Provider Noteson 12-20-19 [employer] Authentication Interface Message Text Sign out note: [...] on abx and return precautions. Normal [facility] [employer] [facility] [employer] Authentication Interface Message Text EMERGENCY DEPARTMENT - [...] m (more content not included)... Normal [facility] HCG, QUANTITATIVEon 12-20-19 24 HCG Qn NINF [facility] Interpretation and review of laboratory results Normal [facility] HCG < 0.6 Normal <5.0 [facility] Comment on above: Performed By: #### L IP, HEPATIC, CH8, HCG #### [facility] [address] [place] [address], HEPATIC FUNCTION PANELon Albumin [Mass/Vol] 2.5 g/dL Low 3.5 - 5.7 g/dL [facility] ALP [Catalytic activity/Vol] 24 U/L Low [facility] ALT [Catalytic activity/Vol] 4 U/L Low [facility] AST [Catalytic activity/Vol] 12 U/L Low [facility] Comment on above: Hemolysis present Bilirubin [Mass/Vol] 0.3 mg/dL 0.3 - 1 .0 mg/dL [facility] Bilirubin.direct [Mass/Vol] 0.05 mg/dL 0.03 - 0.18 mg/dL [facility] Interpretation and review of laboratory results Abnormal [facility] Protein [Mass/Vol] 4.1 g/dL Low 6.0 - 8.3 g/dL [facility] Albumin [Mass/Vol] 2.5 g/dL Low 3.5-5.7 [facility] Comment on above: Performed By: #### L IP, HEPATIC, CH8, HCG #### [facility] [address] [place] [address], ALK 24 IU/L Low 34-104 [facility] Comment on above: Performed By: #### L IP, HEPATIC, CH8, HCG #### [facility] [address] [place] [address], ALT [Catalytic activity/Vol] 4 U/L Low 7-52 [facility] Comment on above: Performed By: #### L IP, HEPATIC, CH8, HCG #### [facility] [address] [place] [address], AST [Catalytic activity/Vol] 12 U/L Low 13-39 [facility] Comment on above: Result Comment: Hemo lysis present Performed By: #### L IP, HEPATIC, CH8, HCG #### [facility] [address] [place] [address], Bilirubin [Mass/Vol] 0.3 mg/dL Normal 0.3-1.0 [facility] Comment on above: Performed By: #### L IP, HEPATIC, CH8, HCG #### [facility] [address] [place] [address], Bilirubin.direct [Mass/Vol] 0.05 mg/dL Normal 0.03-0.18 [facility] Comment on above: Performed By: #### L IP, HEPATIC, CH8, HCG #### S [facility] [address] [place] [address], Protein [Mass/Vol] 4.1 g/dL Low 6.0-8.3 [facility] Comment on above: Performed By: #### L IP, HEPATIC, CH8, HCG #### [facility] [address] [place] [address], LIPASEon 12-20-2023 Interpretation and review of laboratory results Normal [facility] Lipase [Catalytic activity/Vol] 47 U/L [facility] LIP 47 IU/L Normal 11-82 [facility] Comment on above: Performed By: #### L IP, HEPATIC, CH8, HCG #### S [facility] [address] [place] [address], MAGNESIUMon 12-20-2023 Interpretation and review of laboratory results Abnormal [facility] Magnesium [Mass/Vol] 1.8 mg/dL Low 1.9 - 2 .7 mg/dL [facility] Magnesium [Mass/Vol] 1.8 mg/dL Low 1.9-2.7 [facility] Comment on above: Performed By: #### M G, CH8 ####[facility] [id number] [place], [id number] No Panel Informationon 12-19 Radiology Study observation (narrative) [facility] URINALYSIS WITH REFLEX CULTU RE PERFORMABLEon 12-20-2023 Appearance (U) Clear Clear [facility] Bilirubin Ql (U) Small Abnormal Negative [facility] Color (U) Dark Yellow Colorless [facility] Epithelial cells.squamous LM.HPF (Urine sed) [#/Area] 3-5 [facility] Glucose Auto test strip (U) [Mass/Vol] Negative Negative mg/dL [facility] Hemoglobin Ql (U) Negative Negative [facility] Interpretation and review of laboratory results [...] pyuria. Mucus Ql (Urine sed) Present [facility] Nitrite Ql (U) Positive Abnormal Negative [facility] pH (U) 6.0 [pH] 5.0 - 8.0 [facility] Protein (U) [Mass/Vol] 20 mg/dL Negative [facility] Specific gravity (U) [Rel density] 1.032 High NINF - 1.030 [facility] Urobilinogen Qn (U) 3.0 mg/dL Abnormal Negative [facility] WBC (U) [#/Vol] 0-2 [facility] WBC [...] predictive value for UTI around 50%) [facility] Glucose Ql (U) Negative Normal Negative [facility] Comment on above: Order Comment: A [...] HEPATIC, CH8, HCG #### S [facility] [address] [place] [address], Protein (U) [Mass/Vol] 20 mg/dL Normal Negative [facility] [employer] [facility] Comment on above: Order Comment: A [...] HEPATIC, CH8, HCG #### [facility] [address] [place] [address], SQUAMOUS EPITHELIAL 3-5 Normal 0-10 [facility] [employer] [facility] Comment on above: Order Comment: A [...] HEPATIC, CH8, HCG #### [facility] [address] [place] [address], U APPEAR Clear Normal Clear [facility] Comment on above: Order Comment: A [...] HEPATIC, CH8, HCG #### [facility] [address] [place] [address], U BILI Small Abnormal Negative [facility] Comment on [...] HEPATIC, CH8, HCG #### [facility] [address] [place] [address], U BLOOD Negative Normal Negative [facility] [employer] [facility] Comment on above: Order Comment: A [...] CH8, HCG #### [facility] [address], [place], U COLOR Dark Yellow Normal Colorless [facility] Comment on above: Order [...] HEPATIC, CH8, HCG #### S [facility] [address] [place] [address], U KETONE Negative Normal Negative [facility] Comment on above: [...] HEPATIC, CH8, HCG #### S [facility] [address] [place] [address], U LEUK Positive Abnormal Negative [facility] Comment on above: Order Comment: A [...] HEPATIC, CH8, HCG #### S [facility] [address] [place] [address], U MUCOUS Present Normal [facility] Comment on above: Order Comment: A [...] HEPATIC, CH8, HCG #### S [facility] [address] [place] [address], U NITRITE Positive Abnormal Negative [facility] [employer] [facility] Comment on above: Order Comment: A [...] HEPATIC, CH8, HCG #### S [facility] [address] [place] [address], U PH 6.0 Normal 5.0-8.0 [facility] Comment on above: Order Comment: A [...] CH8, HCG #### S [facility] [address], [place], U RBC 0-2 Normal 0-2 [facility] Comment on above: Order Comment: A [...] CH8, HCG #### [facility] [address], [place], U SG 1.032 High <=1.030 [facility] [employer] [facility] Comment on above: Order Comment: A [...] CH8, HCG #### [facility] [address] [place], [place], U UROBILI 3.0 mg/dL Abnormal Negative [facility] [employer] [facility] Comment on above: Order Comment: A [...] CH8, HCG #### [facility] [address] [place], [place], U WBC 11-30 Abnormal 0-2 [facility] [employer] [facility] Comment on above: Order Comment: A [...] CH8, HCG #### [facility] [address], [place], URINE CULTUREon 12-20-2023 Bacteria identified Cx Nom (U) C URINE: No growth of greater than 1,000 CFU/ml Normal [facility] [employer] [facility] Comment on above: Performed By: #### L IP, HEPATIC, CH8, HCG #### [facility] [address], [place], US PELVIS/TRANSVAG (ROBIN)on 0 12-20-2023 US PELVIS/TRANSVAG [...] the left ovary. MACRO: None Normal [facility] [employer] [facility] US Pelvis transabdominal and transvaginalon 12-20-2023 [...] follicle in the left ovary. MACRO: None [facility] Pelvis transabdominal and transvaginalOrdered By: Erin Banerjee on 12-20-2023 [employer] Work Phone: CNOVon 10-03-2023 CNOV Office Visit ([facility] ) ----- LM MONACO ([id number]) 1975 F Date Time Provider Department 10/03/23 8:20 AM WENDY HEATON [facility] During your visit today, we recorded the following information about you: Temperature Pulse Respiration Blood pressure 97.9 degrees 86/minute 16/minute 122/83 Wendy Heaton PA-C 10/03/2023 8:40 AM Signed This note was created using [employer]. Subjective Lm Monaco is a 48 year [...] Cough i (more content not included)... Normal [facility] ED Emergency Severity Index Adult-Texton 10-02-2023 ED Emergency Severity Index Adult-Text DEMETRIO - Adult Entered On: 10/02/2023 21:05 EDT Performed On: 10/02/2023 21:04 EDT by Marilyn Joseph RN DEMETRIO DCP GENERIC CODE Visit Reason : COUGH/CHEST PRESSURE Tracking Triage Date/Time : 10/02/2023 21:04 EDT Tracking Reg Status : Requested Tracking Acuity : 3V-Urgent Tracking Group : [facility] Tracking Marilyn Joseph RN - 10/02/2023 21:04 EDT Normal [facility] ED Triage HAIR SPECIALIST - Texton 10-01 ED Triage HAIR SPECIALIST - Text ED Triage HAIR SPECIALIST Enter ed On: 10/02/2023 20:39 EDT Performed [...] EDT) Problems(Active) Pulmonary embolus RESOLVED (SNOMED CT :93244678 ) Name of Problem: Pulmonary embolus RESOLVED ; Recorder: Katiana Love RN; Confirmation: Confirmed ; Classification: Medical ; Code: [id number] ; Contributor System: [employer] ; Last Updated: 07/02/2023 10:13 EDT ; Life Cycle Date: 07/02/2023 ; Life Cycle Status: Active ; Vocabulary: SNOMED CT Diagnoses(Active) Chest pressure - Adult Date: 10/02/2023 ; Diagnosis Type: Reason For Visit ; Confirmation: Confirmed ; Clinical Dx: Chest pressure - Adult ; Classification: Medical ; Clinical Service: Emergency medicine ; Code: PNED ; Probability: 0 ; Diagnosis Code: [id number] Cough Date: 10/02/2023 ; Diagnosis Type: Reason For Visit ; Confirmation: Confirmed ; Clinical Dx: Cough ; Classification: Medical ; Clinical Service: Emergency medicine ; Code: PNED ; Probability: 0 ; Diagnosis Code: [id number] Reason for Visit (As Of: 10/02/2023 20:39:34 EDT) Problems(Active) Pulmonary embolus RESOLVED (SNOMED CT :91653090 ) Name of Problem: Pulmonary embolus RESOLVED ; Recorder: Katiana Love RN; Confirmation: Confirmed ; Classification: Medical ; Code: [id number] ; Contributor System: PowerChart ; Last Updated: [...] PNED ; Probability: 0 ; Diagnosis Code: [id number] Cough Date: 10/02/2023 ; Diagnosis Type: Reason For Visit ; Confirmation: Confirmed ; Clinical Dx: Cough ; Classification: Medical ; Clinical Service: Emergency medicine ; Code: PNED ; Probability: 0 ; Diagnosis Code: [id number] Sepsis Screening Sepsis Vitals Screening ED : None/ NA(Peds) Berta RICHARDSON, Mat - 10/02/2023 20:38 EDT Normal [facility] 09-30-2023 CNOV Office Visit ([facility] ) ----- LM MONACO ([id number]) 1975 F Date Time Provider Department 09/30/23 2:35 PM DEVANTE GANDHI [facility] During your visit today, we recorded the following information about you: Temperature Pulse Respiration Blood pressure 98 degrees 110/minute 22/minute 111/74 Roma James MA 09/30/2023 2:40 PM Signed Patient states that she got back from [place] on Saturday. She states yesterday she had [...] Patient states that she got back from [place] on Saturday. Today she woke up and [...] (FLONASE) 50 mcg/actuation nasal spray Use 1 [place] in each nostril daily at bedtime. (Patient [...] Can dr (more content not included)... Normal [facility] STREP A MOLECULAR (POC)on Procedural Control Valid [facility] Strep A (POCT) Negative Negative [facility] CNOVon 07-29-2023 CNOV Office Visit ([facility] ) ----- LM MONACO ([id number]) 1975 F Date Time Provider Department 07/29/23 12:40 PM KINGSLEY MARQUES [facility] During your visit today, we recorded the [...] (FLONASE) 50 mcg/actuation nasal spray Use 1 [place] in each nostril daily at bedtime. (Patient [...] and non-l (more content not included)... Normal [facility] AUTO DIFFon 07-19-2023 Baso Count 0.05 x1000 Normal 0.00-0.20 [facility] Comment on above: Performed By: #### 1 68519, [id number], [id number], [id number] #### [facility] [address] [place] [address] Web Support Engineer: Jose Manuel Nj MD Basos % 0.6 % Normal [facility] Comment on above: Performed By: #### 1 55038, [id number], [id number], [id number] #### [facility] [address] [place] [address] Web Support Engineer: Jose Manuel Nj MD Eos Count 0.18 x1000 Normal 0.00-0.50 [facility] Comment on above: Performed By: #### 1 49209, [id number], [id number], [id number] #### [facility] [address] [place] [address] Web Support Engineer: Jose Manuel Nj MD Eosinophils/100 WBC (Bld) 2.1 % Normal [facility] Comment on above: Performed By: #### 1 53617, [id number], [id number], [id number] #### [facility] [address] [place] [address] Web Support Engineer: Jose Manuel Nj MD Lymph Count 2.39 x1000 Normal 1.20-4.80 [facility] Comment on above: Performed By: #### 1 03323, CD:[id number], [id number], [id number] #### [facility] [address] [place] [address] Web Support Engineer: Jose Manuel Nj MD Lymphocytes/100 WBC (Bld) 28.2 % Normal [facility] Comment on above: Performed By: #### 1 30494, [id number], [id number], [id number] #### [facility] [address] [place] [address] Web Support Engineer: Jose Manuel Nj MD Cascade Count 0.55 x1000 Normal 0.10-1.00 [facility] Comment on above: Performed By: #### 1 26791, [id number], [id number], [id number] #### [facility] [address] [place] [address] Web Support Engineer: Jose Manuel Nj MD Monocytes/100 WBC (Bld) 6.5 % Normal [facility] Comment on above: Performed By: #### 1 77005, [id number], [id number], [id number] #### [facility] [address] [place] [address]605 Web Support Engineer: Jose Manuel Nj MD Neutrophil Count (ANC) 5.29 x1000 Normal 1.40-8.80 [facility] Comment on above: Performed By: #### 1 67216, CD:[id number], [id number], [id number] #### [facility] [address] [place] [address] Web Support Engineer: Jose Manuel Nj MD Neutrophils/100 WBC (Bld) 62.5 % Normal [facility] Comment on above: Performed By: #### 1 46036, [id number], [id number], [id number] #### [facility] [address] [place] [address] Web Support Engineer: MD EMILIANO [employer] 07-19-2023 Albumin [Mass/Vol] 3.9 g/dL Normal 3.4-5.0 [facility] Comment on above: Performed By: #### 1 00728, [id number], [id number], [id number] ####[facility] [id number] [place] [address] Medical Director: Jose Manuel Nj MD Albumin/Globulin [Mass ratio] 1.4 {ratio} Normal [facility] Comment on above: Performed By: #### 1 59029, [id number], [id number], [id number] ####[facility] [address] [place] [address] Medical Director: Jose Manuel Nj MD Alk Phos 51 unit/L Normal 45-117 [facility] Comment on above: Performed By: #### 1 05343, CD:[id number], [id number], 053604 ####[facility] F[address]ymzfx63916 [place], [place] [id number]) [phone] Director: Jose Manuel Nj MD Bilirubin [Mass/Vol] 0.40 mg/dL Normal 0.30-1.20 [facility] Comment on above: Result Comment: Use of this assay is not recommended for patients undergoing treatment with eltrombopag due to the potential for falsely elevated results. Performed By: #### 1 78411, CD:[id number], [id number], 674676 ####[facility] [address] [place], [place] [id number]) [phone] Director: Jose Manuel Nj MD Calcium [Mass/Vol] 9.2 mg/dL Normal 8.7-10.4 [facility] Comment on above: Performed By: #### 1 05429, CD:[id number], 6887951, 218948 ####[facility] Xmmsoapi35[address] [place] [address] Medical Director: Jose Manuel Nj MD Chloride [Moles/Vol] 111 mmol/L High 98-107 [facility] Comment on above: Performed By: #### 1 34874, CD:[id number], 9754614, 856632 ####[facility] [address]pngs[address] [place] [address] Medical Director: Jose Manuel Nj MD CO2 [Moles/Vol] 26.0 mmol/L Normal 20.0-31.0 [facility] Comment on above: Performed By: #### 1 53827, CD:[id number], 2262065, 373368 ####[facility] [address] [place] [address] Medical Director: Jose Manuel Nj MD Creatinine [Mass/Vol] 0.8 mg/dL Normal 0.5-0.8 [facility] Comment on above: Performed By: #### 1 70390, CD:[id number], 9988569, 811527 ####[facility] [address]gyfxwub[address] [place] [address] Medical Director: Jose Manuel Nj MD GFR AA >60 Normal [facility] Comment on above: Result Comment: Afri can Citizen Of [place] GFR Calc Medical judgement is necessary to [...] for drug dosing. Performed By: #### 1 05211, CD:[id number], 2548024, 470939 ####[facility] [address]ixbhn[address] [place] [address] Medical Director: Jose Manuel Nj MD Globulin (S) [Mass/Vol] 2.8 g/dL Normal [facility] Comment on above: Performed By: #### 1 84569, CD:[id number], 1516284, 327604 ####[facility] [address]es[address] [place] [address] Medical Director: Jose Manuel Nj MD Glomerular Filtration Rate >60 Normal [facility] Comment on above: Result Comment: Non- GFR [...] for drug dosing. Performed By: #### 1 44105, CD:[id number], 8955484, 011088 ####[facility] [address]azltwt[address] [place] [address] Medical Director: Jose Manuel Nj MD Glucose [Mass/Vol] 92 mg/dL Normal 74-106 [facility] Comment on above: Performed By: #### 1 11949, CD:[id number], 7398853, 410537 ####[facility] [address]fc[address] [place] [address] Medical Director: Jose Manuel Nj MD GOT 13 unit/L Low 15-37 [facility] Comment on above: Performed By: #### 1 00228, CD:[id number], 7749180, 080966 ####[facility] [address] [place] [address] Medical Director: Jose Manuel Nj MD GPT 8 unit/L Low 10-49 [facility] Comment on above: Performed By: #### 1 52793, CD:[id number], 2013732, 705204 ####[facility] [address] [place] [address] Medical Director: Jose Manuel Nj MD Osmolality [Osmolality] 279 mosm/kg Normal 275-295 [facility] Comment on above: Performed By: #### 1 29061, CD:[id number], 7054618, 375223 ####[facility] [address]xsovu[address] [place] [address] Medical Director: Jose Manuel Nj MD Potassium [Moles/Vol] 4.4 mmol/L Normal 3.5-5.1 [facility] Comment on above: Performed By: #### 1 21652, CD:[id number], 0207718, 595570 ####[facility] [address] [place] [id number] [facility]: Jose Manuel Nj MD Protein [Mass/Vol] 6.7 g/dL Normal 5.7-8.2 [facility] Comment on above: Result Comment: Tota l Protein results may be increased in patients receiving dextran as a blood volume community organization worker Performed By: #### 1 82203, CD:[id number], 5123049, 432705 ####[facility] [address] [place], [place] [address] [facility] Director: Jose Manuel Nj MD Sodium [Moles/Vol] 140 mmol/L Normal 135-145 [facility] Comment on above: Performed By: #### 1 65066, CD:754542503, 1820839, 024581 ####[facility] [address] [place] [address] Medical Director: Jose Manuel Nj MD Urea nitrogen [Mass/Vol] 12 mg/dL Normal 9-23 [facility] Comment on above: Result Comment: - Ve nipuncture should occur prior to N-Acetyl Cysteine (NAC) or Metamizole (Sulpyrine) administration due to the potential for falsely depressed results. - Blood samples from some patients with monoclonal gammopathies may produce falsely elevated results Performed By: #### 1 99536, CD:[id number], 7273377, 730373 ####[facility] [address]mmk[address] [place] [address] Medical Director: Jose Manuel Nj MD Urea nitrogen/Creatinine [Mass ratio] 15.0 mg/mg Normal [facility] Comment on above: Performed By: #### 1 87422, CD:[id number], 3702676, 083206 ####[facility] [address] [place] [address] Medical Director: Jose Manuel Nj MD COVID-19 Molecular SWEDon SARS-CoV-2 (COVID-19) RNA DEEPA+probe Ql (Unsp spec) Negative Normal Negative [facility] Comment on above: Result Comment: This assay [...] diagnosis. This testing was performed in the [facility] laboratory located at [[place] [address]] Performed By: #### C D:[id number] #### [facility] [address] [place] [phone] Web Support Engineer: Jose Manuel Nj MD CT ANGIO CHESTon [...] Abdalla MD 07/19/2023 12:46 PM EDT Technologist: SHAZIA,ELISEO,WCL Dictated By: ROBERT ABDALLA MD Signed By: ROBERT ABDALLA MD Signed Out: 07/19/23 12:46:11 Normal [facility] SAHIL Progress Note-ED Nurseon 07-19-2023 SAHIL Progress [...] OF SYMPTOMS AND WHEN TO RETURN. Normal [facility] ED Adult Data - Texton 07-18 ED [...] Breathing : Normal Circulation : Normal Casandra Villasneor RN - 07/19/2023 9:09 EDT Screening-General Meds [...] List Problem List obtained from : Patient Casandra Villasenor RN - 07/19/2023 9:09 EDT (As Of: 07/19/2023 09:09:50 EDT) Problems(Active) Pulmonary embolus RESOLVED (SNOMED CT :83836915 ) Name of Problem: Pulmonary embolus RESOLVED ; Recorder: Katiana Love RN; Confirmation: Confirmed ; Classification: Medical ; Code: [id number] ; Contributor System: Mobilligy ; Last Updated: 07/02/2023 10:13 EDT ; Life Cycle Date: 07/02/2023 ; Life Cycle Status: Active ; Vocabulary: SNOMED CT Diagnoses(Active) Chest pain with deep breathing Date: 07/19/2023 ; Diagnosis Type: Reason For Visit ; Confirmation: Confirmed ; Clinical Dx: Chest pain with deep breathing ; Classification: Medical ; Clinical Service: Non-Specified ; Code: PNED ; Probability: 0 ; Diagnosis Code: [id number] Procedure History ED Devices Present on Arrival To ED : None Urinary Catheter Present on Admit to ED : No Casandra Villasenor RN - 07/19/2023 9:09 EDT - Procedure History (As Of: 07/19/2023 09:09:50 EDT) Anesthesia Minutes: 0 ; Procedure Name: BACK SURGERY ; Procedure Minutes: 0 ; Comments: 07/02/2023 10:13 EDT - Katiana Love RN 2006 Social History Does pt have any alcohol,drugs or tobacco : No Do you consume Alcohol : No Social History obtained from : Patient Casandra Villasenor RN - 07/19/2023 9:09 EDT Social History (As [...] Coronavirus New Symptoms w/o Cause : No Casandra Villasenor RN - 07/19/2023 9:09 EDT Normal [facility] ED Discharge Educationon ED Discharge Education Orthopedics [...] your doctor if you can take an bowt-jyl-ootucxf medicine. ? Take short walks several times [...] Where can you learn more? Go to https://www.Arledia.2threads t/patientEd Enter I594 in the search box to learn more about Back Pain: Care Instructions. Current as of: June 14, 2021 Content Version: 13.3 ? [employer]. Care instructions adapted under license by your healthcare professional. If you have questions about a medical condition or this instruction, always ask your healthcare professional. [employer] disclaims any warranty or liability for your use of this information. Normal [facility] ED Emergency Severity Index Adult-Texton 07-19-2023 ED Emergency Severity Index Adult-Text DEMETRIO - Adult Entered On: 07/19/2023 9:06 EDT Performed On: 07/19/2023 9:05 EDT by Casandra Villasenor RN DEMETRIO DCP GENERIC CODE Visit Reason : chest pain with breathing Tracking Triage Date/Time : 07/19/2023 09:05 EDT Tracking Reg Status : Requested Tracking Acuity : 3V-Urgent Tracking Group : SGEN Tracking Casandra Villasenor RN - 07/19/2023 9:05 EDT Normal [facility] ED Nrsing Adlt Triage Sep Sc rning - Texton 07-19-2023 ED Nrsing Adlt Triage Sep Scrning - Text ED Nursing Adult Triage Sepsis Screening Tool Entered On: 07/19/2023 9:09 EDT Performed On: 07/19/2023 9:08 EDT by Casandra Villasenor RN Adult Sepsis Screening Sepsis Infection Screening ED : No Casandra Villasenor RN - 07/19/2023 9:08 EDT Normal [facility] ED Patient Summaryon 024 ED Patient Summary [facility] Emergency Department Discharge Instructions [address] [place] [address] (Patient Copy) Name: LM MONACO : 1975 Allergies: Flagyl Diagnosis: 1:Thoracic back pain; 2:Nodule of right lung Visit Date: 07/19/2023 08:59:52 [facility]#: [id number] Current Date Time: 07/19/2023 14:28:04 Address: [address] [place] [id number] Primary Care Provider: Name: SHASHA GIBBS MD Emergency Department Care Providers: Primary Physician: REX QUEZADA MD Thank you for choosing [facility] for your emergency care. You are very important to us. Our goal is to demonstrate our high quality medical care, and provide you with a very good patient experience. You may receive a survey about our service. Please take the time to complete the survey and return it so we can continue to enhance our service. Thank you again for allowing the [facility] Emergency Department to care for your medical needs. If you have questions about your care or follow up information please contact us at [phone]. Follow-Up Instructions LM MONACO has been given these follow-up instructions: With: Address: When: DAVID PEREZ, Pulmonary Medicine [address] [facility], [address] [place] [id number] [phone] Business (1) Within 3 to 5 days With: Address: When: SHASHA GIBBS, Family Practice [address], [address] [place] [phone] Business (1) Within 3 to 5 days [...] your doctor if you can take an ebgu-lok-elivjuj medicine. ? Take short walks several times [...] lose weight, (more content not included)... Normal [facility] ED Physician Reporton 2023 ED Physician Report [...] 5/5, distal LLE 5/5 Medical Decision Making MDM Data Pertinent history elements: Patient is a [...] infiltrative process final read per the radiologist [facility] Treatment ED course: Patient receives morphine [...] She is reassured with the negative angio. [facility] Disposition Disposition: Discharge Discussed with: _ _ _Pati (more content not included)... Normal [facility] ED Triage Adult-Texton 07-18 ED Triage Adult-Text ED Triage Entered O n: 07/19/2023 9:08 EDT Performed On: 07/19/2023 9:07 EDT by Casandra Villasenor RN Triage (As Of: 07/19/2023 09:08:55 EDT) Problems(Active) Pulmonary embolus RESOLVED (SNOMED CT :34806529 ) Name of Problem: Pulmonary embolus RESOLVED ; Recorder: Katiana Love RN; Confirmation: Confirmed ; Classification: Medical ; Code: [id number] ; Contributor System: PowerChart ; Last Updated: [...] PNED ; Probability: 0 ; Diagnosis Code: [id number] (As Of: 07/19/2023 09:08:55 EDT) Allergies (Active) [...] Villasenor RN - 07/19/2023 9:07 EDT Normal [facility] HEMOon 07-19-2023 DIFF? No Normal [facility] Comment on above: Performed By: #### 1 23290, CD:[id number], 6060366, 215871 #### [facility] [address] [place], [place] [address] Web Support Engineer: Jose Manuel Nj MD Erythrocyte distribution width (RBC) [Ratio] 13.5 % Normal 11.5-14.5 [facility] Comment on above: Performed By: #### 1 34781, CD:[id number], 1404706, 330165 #### [facility] [address] [place] [address] Web Support Engineer: Jose Manuel Nj MD Hematocrit (Bld) [Volume fraction] 43.5 % Normal 36.0-46.0 [facility] Comment on above: Performed By: #### 1 85871, CD:[id number], 2186229, 141099 #### [facility] [address] [place] [address] Web Support Engineer: Jose Manuel Nj MD Hemoglobin (Bld) [Mass/Vol] 15.3 g/dL Normal 12.0-16.0 [facility] Comment on above: Performed By: #### 1 47090, CD:[id number], 8361299, 986132 #### [facility] [address] [place] [address] Web Support Engineer: Jose Manuel Nj MD Instr WBC 8.5 Normal [facility] Comment on above: Performed By: #### 1 , CD:[id number], 1479432, 184445 #### [facility] [address] [place], [place] [address] Web Support Engineer: Jose Manuel Nj MD MCH (RBC) [Entitic mass] 32.4 pg Normal 27.0-34.0 [facility] Comment on above: Performed By: #### 1 87062, CD:[id number], 7636753, 028016 #### [facility] [address] [place], [place] [address] Web Support Engineer: Jose Manuel Nj MD MCHC (RBC) [Mass/Vol] 35.1 g/dL Normal 32.0-37.0 [facility] Comment on above: Performed By: #### 1 33776, CD:580249879, 6635750, 290912 #### [facility] [address] [place] [address] Web Support Engineer: Jose Manuel Nj MD MCV (RBC) [Entitic vol] 92.4 fL Normal 80.0-100.0 [facility] Comment on above: Performed By: #### 1 45703, CD:697954386, 2197150, 105887 #### [facility] [address] [place] [address] Web Support Engineer: Jose Manuel Nj MD MDW 18.35 Normal 13.98-20.00 [facility] Comment on above: Result Comment: MDW Interpretation: [...] risk of Sepsis. Performed By: #### 1 90134, CD:[id number], 7991874, 723654 #### [facility] [address] [place] [address] Web Support Engineer: Jose Manuel Nj MD Nucleated RBC 0 /100WBC Normal [facility] Comment on above: Performed By: #### 1 27233, CD:[id number], 0313418, 332420 #### [facility] [address] [place] [address] Web Support Engineer: Jose Manuel Nj MD Platelet 307 x10 Normal 150-450 [facility] Comment on above: Performed By: #### 1 38090, CD:[id number], 5253384, 603687 #### [facility] [address] [place] [address] Web Support Engineer: Jose Manuel Nj MD Platelet mean volume (Bld) [Entitic vol] 7.9 fL Normal 7.4-10.4 [facility] Comment on above: Performed By: #### 1 22113, CD:[id number], 8494823, 497228 #### [facility] [address] [place] [address] Web Support Engineer: Jose Manuel Nj MD RBC 4.71 x10 Normal 4.20-5.40 [facility] Comment on above: Result Comment: Note : RBC morphology is normal unless otherwise stated. Evaluation performed only if differential is requested. Performed By: #### 1 69875, CD:[id number], 5180855, 607011 #### [facility] [address] [place], [place] [address] Web Support Engineer: Jose Manuel Nj MD WBC 8.5 x10 Normal 4.5-11.0 [facility] Comment on above: Performed By: #### 1 14217, CD:[id number], 7664958, 960805 #### [facility] [address] [place] [address] Web Support Engineer: Jose Manuel Nj MD MorPHINE 2MG/1ML INJon [...] Caputo RN - 07/19/2023 11:21 EDT Normal [facility] Comment on above: Order Comment: O2 sa t prior to administrationpotential SOUND ALIKE/LOOK ALIKE-verify med;potential SOUND ALIKE/LOOK ALIKE-verify med; Pharmacy Clinical Interventi ons-Texton 07-19-2023 Pharmacy Clinical Interventions-Text Pharmacy Clinical Interventions Entered On: 07/19/2023 11:57 EDT Performed On: 07/19/2023 11:56 EDT by Moriah Turk CPhT Interventions Intervention Type Pharmacy : Medication history Pharmacy Order Initiated By : Java Developer Consultant Clinical Importance Pharmacy : Potentially major Prescriber [...] a few days ago Allergies updated : yl Patient pharmacy : Moriah Jean Baptiste CPhT - 07/19/2023 11:56 EDT [facility] RAP FLU A AND Bon 07-19-2023 Rapid Influenza A Antigen Test Negative [facility] Comment on above: Result Comment: A po sitive Rapid Influenza A Antigen Test indicates the presence of Influenza A. This is a screening test only and should be correlated with the patient's clinical symptoms. Performed By: #### 5 [id number] ####[facility] [address] [place] [address] Medical Director: Jose Manuel Nj MD Rapid Influenza B Antigen Test Negative [facility] Comment on above: Result Comment: A po sitive Rapid Influenza B Antigen Test indicates the presence of Influenza B. This is a screening test only and should be correlated with the patients's clinical symptoms. Performed By: #### 5 [id number] ####[facility] [address] [place] [address] Medical Director: Jose Manuel Nj MD RFAB INT QC Present [facility] Comment on above: Performed By: #### 5 191561 ####[facility] [address] [place] [address] Medical Director: Jose Manuel Nj MD TROPONIN HS 0HRon 07-19-2023 Troponin HS 0 Hr <3 Low 3-34 [facility] Comment on above: Result Comment: Spec imens from some individuals with pathologically high gamma globulin levels may demonstrate depressed troponin values Performed By: #### 1 16822, CD:[id number], 2278208, 002585 #### [facility] [address] [place] [address] Web Support Engineer: Jose Manuel Nj MD TROPONIN HS 2HRon 07-19-2023 Delta Troponin 2 Hr 0 pg/mL Normal 0-14 [facility] Comment on above: Result Comment: The term acute myocardial infarction should be used when there is acute myocardial injury with clinical evidence of acute myocardial ischemia and the rise or fall of serial Troponin HS values (delta troponin) greater than or equal to 15 pg/mL with at least one Troponin HS value above the 99th percentile reference range Performed By: #### C D:[id number] ####[facility] [address] [place] [address] Medical Director: Jose Manuel Nj MD Troponin HS 2 Hr <3 Low 3-34 [facility] Comment on above: Result Comment: Spec imens from some individuals with pathologically high gamma globulin levels may demonstrate depressed troponin values Performed By: #### C D:[id number] ####[facility] [address] [place] [address] Medical Director: Jose Manuel Nj MD XR [...] ROWLEY MD Signed Out: 07/19/23 10:39:23 Normal [facility] ED Physician Reporton 2023 ED Physician Report [...] her job. 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 Normal [facility] CNOVon 07-04-2023 CNOV Office Visit ([facility] ) ----- LM MONACO ([id number]) 1975 F Date Time Provider Department 07/04/23 9:35 AM WENDY HEATON During your visit today, we recorded the [...] AM Signed This note was created using Arctrieval. Subjective Lm Monaco is a 48 year [...] TABLETS IN (more content not included)... Normal [facility] APAP 325MG/OXYCODONE 5MG TAB on 07-02-2023 APAP 325MG/OXYCODONE 5MG TAB PRN Response Entered On: 07/02/2023 13:58 EDT Performed On: 07/02/2023 11:55 EDT by Cinthia Hilario RN Intervention Information: acetaminophen-oxycodone Performed by Katiana Love RN on 07/02/2023 10:55:00 EDT acetaminophen-oxycodone,1 tabs [...] Hilario RN - 07/02/2023 13:57 EDT Normal [facility] Comment on above: Order Comment: Check for other orders containing acetaminophen before administering. Max total daily amount is [address] LUMBAR WO CONTRASTon 06-07 CT LUMBAR WO CONTRAST CT lumbar spine INDICATION: 48 xyzeh-wpfu-bzp with RADICULOPATHY COMPARISON: 06/21/2023. TECHNIQUE: Contiguous axial [...] VALDES MD Signed Out: 07/02/23 12:44:52 Normal [facility] ED Adult Data - Texton 07-01 ED [...] Currently or : Unknown Preferred Verbal : Azerbaijani Katiana Love RN - 07/02/2023 10:12 EDT [...] a medically restricted extremity? : No Katiana Love RN - 07/02/2023 10:12 EDT Problem List Problem List obtained from : Patient Katiana Love RN - 07/02/2023 10:12 EDT (As Of: 07/02/2023 10:13:44 EDT) Problems(Active) Pulmonary embolus RESOLVED (SNOMED CT :32549694 ) Name of Problem: Pulmonary embolus RESOLVED ; Recorder: Katiana Love RN; Confirmation: Confirmed ; Classification: Medical ; Code: [id number] ; Contributor System: Mobilligy ; Last Updated: 07/02/2023 10:13 EDT ; Life Cycle Date: 07/02/2023 ; Life Cycle Status: Active ; Vocabulary: SNOMED CT Diagnoses(Active) Back pain Date: 07/02/2023 ; Diagnosis Type: Reason For Visit ; Confirmation: Confirmed ; Clinical Dx: Back pain ; Classification: Medical ; Clinical Service: Emergency medicine ; Code: PNED ; Probability: 0 ; Diagnosis Code: [id number] Procedure History ED Devices Present on Arrival [...] No Social History obtained from : Patient Viv Love RNy - 07/02/2023 10:12 EDT Social History (As [...] History Family History obtained from : Patient Ivan RICHARDSON Katiana - 07/02/2023 10:12 EDT Family History (As Of: 07/02/2023 10:13:45 EDT) Infection Screening Travel outside of [place] within past 21 days? : No Positive COVID test in the last 10 days? : No Exposure to and/or close contact with a person who has a laboratory-confirmed COVID test within the last 48 hours. : No Coronavirus New Symptoms w/o Cause : No Ivan DEBRA Katiana - 07/02/2023 10:12 EDT Normal [facility] ED Discharge Educationon ED Discharge Education Neurology Sciatica: Care Instructions Overview Sciatica (say deo-JR-le-kuh) is an irritation of one of the [...] your doctor if you can take an pyme-mno-roahwtq medicine. ? Use heat or ice to [...] Where can you learn more? Go to https://www.Arledia.ne t/patientEd Enter Z239 in the search box to learn more about Sciatica: Care Instructions. Current as of: June 14, 2021 Content Version: 13.3 ? [employer]. Care instructions adapted under license by your healthcare professional. If you have questions about a medical condition or this instruction, always ask your healthcare professional. [employer] disclaims any warranty or liability for your [...] Where can you learn more? Go to https://www.Arledia.ne t/patientEd Enter L998 in the search box to learn more about Sciatica: Exercises. Current as of: June 14, 2021 Content Version: 13.3 ? [employer]. Care instructions adapted under license by your healthcare professional. If you have questions about a medical condition or this instruction, always ask your healthcare professional. [employer] disclaims any warranty or liability for your use of this information. Orthopedics and Rheumatology Back Pain: (more content not included)... Normal [facility] ED Emergency Severity Index Adult-Texton 07-02-2023 ED [...] Reg Status : Requested Tracking Acuity : [id number] Tracking Group : SGEN Tracking Katiana Love RN - 07/02/2023 8:40 EDT Recommended DEMETRIO Level : 4 Katiana Love RN - 07/02/2023 8:40 EDT Normal [facility] ED Nrsing Adlt Triage Sep Sc rning - Texton 07-02-2023 ED Nrsing Adlt Triage Sep Scrning - Text ED Nursing Adult Triage Sepsis Screening Tool Entered On: 07/02/2023 10:10 EDT Performed On: 07/02/2023 10:10 EDT by Katiana Love RN Adult Sepsis Screening Sepsis Infection Screening ED : No Katiana Love RN - 07/02/2023 10:10 EDT Normal [facility] ED Patient Summaryon 024 ED Patient Summary [facility] Emergency Department Discharge Instructions [id number] [id number] (Patient Copy) Name: LM MONACO : 1975 Allergies: Flagyl Diagnosis: 1:Acute lumbar radiculopathy with left-sided sciatica; 2:Pulmonary nodule, incidental finding Visit Date: 07/02/2023 08:20:27 Current Date Time: 07/02/2023 14:00:45 Address: [address] [facility] [address] Primary Care Provider: Name: ANCELMO FAMILY PHYSICIAN, [facility] Phone: Emergency Department Care Providers: Primary Physician: PHILL VAZQUEZ DO Thank you for choosing [facility] for your emergency care. You are very important to us. Our goal is to demonstrate our high quality medical care, and provide you with a very good patient experience. You may receive a survey about our service. Please take the time to complete the survey and return it so we can continue to enhance our service. Thank you again for allowing the [facility] Emergency Department to care for your medical needs. If you have questions about your care or follow up information please contact us at [phone]. Follow-Up Instructions LM MONACO has been given these follow-up instructions: With: Address: When: [facility] [address], [address] [place], [place] [id number] Business (1) Within 3 to 5 days With: Address: When: AGNES NUR, SETH, Neurosurgery [address], [address] [place] [address] Within 3 to 5 days With: Address: When: PARDEEP CLAIRE, FAITH Feliz, Family Practice [address] [place] [phone] Within 3 to 5 days Comments: Please [...] Where can you learn more? Go to https://www.Arledia.ne t/patientEd Enter E678 in the search box to learn more about Learning About Lung Nodules. Current as of: December 14, 2020 Content Version: 13.3 ? [employer]. Care instructions adapted under license by your healthcare professional. If you have questions about a medical condition or this instruction, always ask your healthcare professional. [employer] disclaims any warranty or liability for your use of this information. Sciatica: Exercises Introduction Here are some examples of typical rehabilitation exercises (more content not included)... Normal [facility] ED Progress Noteon ED Progress Note PT [...] out of unit with all belongings. Normal [facility] ED Triage Adult-Texton 07-01 ED Triage Adult-Text [...] PNED ; Probability: 0 ; Diagnosis Code: [id number] (As Of: 07/02/2023 08:41:43 EDT) Allergies (Active) [...] Love RN - 07/02/2023 8:41 EDT Normal [facility] KETOROLAC 60MG/2ML INJon KETOROLAC 60MG/2ML INJ PRN [...] Cinthia Hilario RN - 07/02/2023 13:58 EDT Normal [facility] Comment on above: Order Comment: do no t exceed 60mg/24hrs for patients over 65, 120mg/24hr for patients 65 or younger; ED Physician Reporton 2023 ED Physician Report INDIAVICTORIANOAtilio CLAIREB:1975 Registration Date:06/21/2023 Basic Information Time Seen: PHILL [...] deficits. She is stable [facility] instructions for continued outpatient f/u. I [...] Family Practice Within 1 to 2 days [address] [facility] [address] [place] [address] [facility] (1) Additional Instructions: Assessment This Visit Diagnosis Acute lumbar radiculopathy M54.16 Ordered: traMADol(traMADol (more content not included)... Normal [facility] APAP 325MG/OXYCODONE 5MG TAB on 06-21-2023 APAP [...] Fairbanks RN - 06/21/2023 14:06 EDT Normal [facility] Comment on above: Order Comment: Check for [...] DURAN MD Signed Out: 06/21/23 13:16:53 Normal [facility] ED Adult Data - Texton 06-20 ED Adult Data - Text ED Adult Data Enter ed On: 06/21/2023 11:00 EDT Performed On: 06/21/2023 10:56 EDT by Karla Finney RN Arrival Information Information Given by : Patient Referral Source ED : Home [facility] Mode of Arrival : Car / Walk-In Airway : Normal Breathing : Normal Circulation : Normal Karla Finney RN 06/21/2023 10:56 EDT Screening-General Meds Triage : Other Accept Blood Products if Necessary : Yes Immunizations Current : Unknown Last Tetanus : Unknown Currently or : Not Applicable Karla Finney RN 06/21/2023 10:56 EDT Depression Screening Patient able to verbalize? : Yes Feeling Down, Depressed, Hopeless : Not at all Little Interest - Pleasure in Activities : Not at all Initial Depression Screen Score : 0 Depression Screening Score 0 : No IP Pt being evaluated or treated for BH conditions : No Karla Finney RN 06/21/2023 10:56 EDT Screening-Safety Abuse/Violence Concerns? : Patient denies Does the patient have a medically restricted extremity? : No Karla Finney RN - 06/21/2023 10:56 EDT Problem List Problem List obtained from : Patient Karla Finney RN 06/21/2023 10:56 EDT (As Of: 06/21/2023 11:00:40 EDT) Diagnoses(Active) Back pain Date: 06/21/2023 ; Diagnosis Type: Reason For Visit ; Confirmation: Confirmed ; Clinical Dx: Back pain ; Classification: Medical ; Clinical Service: Non-Specified ; Code: PNED ; Probability: 0 ; Diagnosis Code: [id number] Procedure History ED Devices Present on Arrival To ED : None Urinary Catheter Present on Admit to ED : No Karla Finney RN 06/21/2023 10:56 EDT - Procedure History (As Of: 06/21/2023 11:00:40 EDT) Social History Does pt have any alcohol,drugs or tobacco : No Do you consume Alcohol : No Social History obtained from : Patient Karla Finney RN 06/21/2023 10:56 EDT Social History (As Of: [...] Finney RN) Infection Screening Travel outside of [facility] within past 21 days? : No Positive COVID test in the last 10 days? : No Exposure to and/or close contact with a person who has a laboratory-confirmed COVID test within the last 48 hours. : No Coronavirus New Symptoms w/o Cause : No Karla Finney RN - 06/21/2023 10:56 EDT Normal [facility] ED Discharge Educationon ED Discharge Education Neurology Sciatica: Care Instructions Overview Sciatica (say bns-UQ-vg-kuh) is an irritation of one of the [...] your doctor if you can take an xris-bvg-yhfefzr medicine. ? Use heat or ice to [...] Where can you learn more? Go to https://www.[employer] t/patientEd Enter Z239 in the search box to learn more about Sciatica: Care Instructions. Current as of: June 14, 2021 Content Version: 13.3 ? [employer]. Care instructions adapted under license by your healthcare professional. If you have questions about a medical condition or this instruction, always ask your healthcare professional. [employer] disclaims any warranty or liability for your [...] an over-th (more content not included)... Normal [facility] ED Emergency Severity Index Adult-Texton 06-21-2023 ED Emergency Severity Index Adult-Text DEMETRIO - Adult Entered On: 06/21/2023 13:00 EDT Performed On: 06/21/2023 13:00 EDT by Joan Spivey RN DCP GENERIC CODE Visit Reason : lowe back pain/spasms Tracking Triage Date/Time : 06/21/2023 10:55 EDT Tracking Reg Status : Complete Tracking Acuity : 3V-Urgent Tracking Group : SGRAEGAN Tracking Joan Spivey RN - 06/21/2023 13:00 EDT Normal [facility] ED Emergency Severity Index Adult-Text DEMETRIO - Adult Entered On: 06/21/2023 10:55 EDT Performed On: 06/21/2023 10:55 EDT by Reg RN, Karla DEMETRIO DCP GENERIC CODE Visit Reason : lowe back pain/spasms Tracking Triage Date/Time : 06/21/2023 10:55 EDT Tracking Reg Status : Requested Tracking Acuity : [id number] Tracking Group : DEVIN Elder Karla Finney RN - 06/21/2023 10:55 EDT Normal [facility] ED Nrsing Adlt Triage Sep Sc rning - Texton 06-21-2023 ED Nrsing Adlt Triage Sep Scrning - Text ED Nursing Adult Triage Sepsis Screening Tool Entered On: 06/21/2023 10:55 EDT Performed On: 06/21/2023 10:55 EDT by Karla Finney RN Adult Sepsis Screening Sepsis Infection Screening ED : No Karla Finney RN - 06/21/2023 10:55 EDT Normal [facility] ED Patient Summaryon 024 ED Patient Summary [facility] Emergency Department Discharge Instructions [address] [place] [address] (Patient Copy) Name: LM MONACO : 1975 Allergies: Flagyl Diagnosis: Acute lumbar radiculopathy; Lumbar strain; Pulmonary nodule Visit Date: 06/21/2023 10:45:25 Current Date Time: 06/21/2023 14:18:32 Address: [address] [facility] [address] Primary Care Provider: Name: ANCELMO FAMILY PHYSICIAN, 837 Phone: Emergency Department Care Providers: Primary Physician: PHILL VAZQUEZ DO Thank you for choosing [facility] for your emergency care. You are very important to us. Our goal is to demonstrate our high quality medical care, and provide you with a very good patient experience. You may receive a survey about our service. Please take the time to complete the survey and return it so we can continue to enhance our service. Thank you again for allowing the [facility] Emergency Department to care for your medical needs. If you have questions about your care or follow up information please contact us at [phone]. Follow-Up Instructions LM MONACO has been given these follow-up instructions: With: Address: When: Please seek immediate medical attention if you develop worsening pain, fever, difficulty urinating, numbness or tingling, weakness, or you have any new concerns. Within n/a With: Address: When: MICKIE CHAN, Family Practice [address] [facility] [address] [address], [address] [place] [address] [employer] (4) Within 1 to 2 days Patient Education [...] Where can you learn more? Go to https://www.Arledia.2threads t/patientEd Enter E678 in the search box to learn more about Learning About Lung Nodules. Current as of: December 14, 2020 Content Version: 13.3 ? [employer]. Care instructions adapted under license by your healthcare professional. If you have questions about a medical condition or this instruction, always ask your healthcare professional. [employer] disclaims any warranty or liability for your [...] usually improv (more content not included)... Normal [facility] ED Progress Noteon 4 ED Progress Note Pt arrives to the [...] instructions. Pt walked to ED exit. Normal [facility] ED Triage Adult-Texton 06-20 ED Triage Adult-Text [...] PNED ; Probability: 0 ; Diagnosis Code: [id number] (As Of: 06/21/2023 10:56:36 EDT) Allergies (Active) [...] Finney RN - 06/21/2023 10:56 EDT Normal [facility] KETOROLAC 60MG/2ML INJon KETOROLAC 60MG/2ML INJ PRN [...] Keith Fairbanks RN - 06/21/2023 14:06 EDT [facility] Comment on above: Order Comment: do no t exceed 60mg/24hrs for patients over 65, 120mg/24hr for patients 65 or younger; CNOVon 06-16-2023 CNOV Office Visit ([facility] ) ----- LM MONACO ([id number]) 1975 F Date Time Provider Department 06/16/23 11:50 AM JEREMY WILLARD [facility] During your visit today, we recorded the [...] Willard MD, PhD 06/16/2023 12:34 PM Signed [facility] Patient Name: Lm Monaco Today's Date: June [...] Moderate This note was partially generated using Attero voice recognition system, and there may be [...] tablet Take (more content not included)... Normal [facility] CNOVon 06-07-2023 CNOV Office Visit ([facility] ) ----- LM MONACO ([id number]) 1975 F Date Time Provider Department 06/07/23 12:20 PM MORIAH MALIN [facility] During your visit today, we recorded the [...] (FLONASE) 50 mcg/actuation nasal spray Use 1 [place] in each nostril daily at bedtime. (Patient [...] 14 table (more content not included)... Normal [facility] ED Discharge Educationon ED Discharge Education Normal [facility] ED Patient Summaryon 024 ED Patient Summary [facility] Emergency Department Discharge Instructions [address] [place] [address] (Patient Copy) Name: LM MONACO : 1975 Allergies: Diagnosis: Visit Date: 06/04/2023 19:32:15 Current Date Time: 06/04/2023 21:14:27 Address: [id number] [facility] [id number] Primary Care Provider: Name: NO FAMILY PHYSICIAN, 837 Phone: Emergency Department Care Providers: Primary Physician: REX QUEZADA MD Thank you for choosing [facility] for your emergency care. You are very important to us. Our goal is to demonstrate our high quality medical care, and provide you with a very good patient experience. You may receive a survey about our service. Please take the time to complete the survey and return it so we can continue to enhance our service. Thank you again for allowing the [facility] Emergency Department to care for your medical needs. If you have questions about your care or follow up information please contact us at [phone]. Follow-Up Instructions LM MONACO has been given these follow-up instructions: Patient Education Materials LM MONACO has been given the following patient education materials: BEFORE YOU LEAVE Set up your [facility] [employer] account! [employer] is a secure, online health management tool that connects you to portions of your hospital-based electronic medical record, allowing you to see test results, manage appointments, access discharge care instructions and much more. You can access [employer] from a computer, tablet or smartphone. Enrollment/registration is required. If you do not have a [employer] account, please provide us with an email address before you leave so that we may set up an account for you. New to [employer]! You may now securely connect some of the health management apps you use (e.g., fitness trackers, dietary trackers, etc.) to your health record in [facility] [employer]. This new feature provides expanded access to your health and wellness data, which will help you and your care team make informed decisions about your health care. If you are interested in using a health management kalyan not currently connected to [employer], contact a Cash On Delivery Clerk at [phone] or [email or web address] . We will determine if the kalyan meets the technical requirements to connect to [facility] [employer] and assure the security of your private [...] health or substance abuse issue, please call [facility] at [phone] or the National Suicide Prevention Lifeline at . INDIA Moore LALENA, have received the follow-up provider(s) list, medication information and patient education materials/instructions and have verbalized understanding. Patient Signature Date Time Provider Signature Date Time Normal [facility] ED Progress Noteon ED Progress Note lwot [id number] Normal [facility] ED Triage Adult-Texton 06-04 ED Triage Adult-Text ED Triage Entered O n: 06/04/2023 19:36 EST Performed On: 06/04/2023 19:35 EST by Moriah Cramer Triage (As Of: 06/04/2023 19:36:23 EST) Diagnoses(Active) Neck pain Date: 06/04/2023 ; Diagnosis Type: Reason For Visit ; Confirmation: Confirmed ; Clinical Dx: Neck pain ; Classification: Medical ; Clinical Service: Emergency medicine ; Code: PNED ; Probability: 0 ; Diagnosis Code: [id number] (As Of: 06/04/2023 19:36:23 EST) Vitals/Ht/Wt Temperature [...] Moriah Cramer - 06/04/2023 19:35 EST Normal [facility] CNOVon 05-29-2023 CN Office Visit ([facility] ) ----- LM MONACO ([id number]) 1975 F Date Time Provider Department 05/29/23 9:20 AM WENDY HEATON [facility] During your visit today, we recorded the following information about you: Temperature Pulse Respiration Blood pressure 97.8 degrees 83/minute 15/minute 97/65 Weight 53.5 kg Wendy Heaton PA-C 05/29/2023 9:42 AM Signed This note was created using Arctrieval. Subjective Lm Monaco is a 48 year [...] even if the symptoms go away. 2. Qinm-zhy-xujbkpm pain medication may be taken or other [...] fluticasone (FLONASE) 50 mcg/actuation nasal sprayUse 1 [place] in each nostril daily at bedtime.Disp: 9.9 mLRfl: 0 Prescriptions as of 05/29/2023 - amoxicillin (AMOXIL) 875 (more content not included)... Normal [facility] CNOVon 04-09-2023 CNOV Office Visit ([facility] ) ----- LM MONACO ([id number]) 1975 F Date Time Provider Department 04/09/23 9:30 AM DEVANTE GANDHI [facility] During your visit today, we recorded the [...] to m (more content not included)... Normal [facility] FLUABV + SARS-CoV-2 Pnl Resp DEEPA+prbon 04-09-2023 Influenza virus A and B RNA and SARS-CoV-2 (COVID-19) N gene panel DEEPA+probe (Resp) COVID 19 RESULT: Not detected The method used is RT-PCR or an equivalent NAAT method. Reference Range (the expected result in uninfected individuals): Not detected INFLUENZA A PCR: Detected INFLUENZA B PCR: Not detected Abnormal [facility] Comment on above: Performed By: #### 9 [id number] ####[facility] LABCLIA [id number] [address] [place] CNOVon 03-10-2023 CNOV Office Visit ([facility] ) ----- LM MONACO ([id number]) 1975 F Date Time Provider Department 03/10/23 10:45 AM SVITLANA FOSTER [facility] During your visit today, we recorded the following information about you: Temperature Pulse Respiration Blood pressure 97.9 degrees 75/minute 16/minute 99/62 Weight Height 52.2 kg 1.626 m Svitlana Foster APRN.FIELD RESEARCH ASSOCIATE 03/10/2023 11:41 AM Signed This note was created using Easel Learnriter. Subjective HPI Lm Monaco is a 47 [...] performed and I recommend signing up for [facility] mychart to get results KEVIN To ER if any chest pain, troubles breathing, drooling, troubles swallowing, swelling of your throat especially one side, neck pain/stiffness, rash, abdominal pain, intractable nausea vomiting or diarrhea, bloody or dark urine stool or vomit, pain or swelling behind (more content not included)... Normal [facility] COVID AND INFLUENZA A/B AND RSV NAAT, ROUTINEon 03-10-2023 SARS-CoV-2 (COVID-19) RNA DEEPA+probe Ql (Unsp spec) COVID 19 RESULT: Not detected The method used is RT-PCR or an equivalent NAAT method. Reference Range (the expected result in uninfected individuals): Not detected INFLUENZA A PCR: Not detected INFLUENZA B PCR: Not detected RSV PCR: Not detected Normal [facility] Comment on above: Performed By: #### C VFLRS ####[facility] LABCLIA [id number] [place] [address] [place] XR FEMUR RIGHT [...] IMPRESSION: No acute osseous abnormality. Workstation ID: [id number] Dictated by: JAK FELICIANO on SatApr 18, 2022 4:37:20 PM EST Transcribed by: AJK FELICIANO on SatApr 18, 2022 4:37:20 PM EST Finalized by: JAK FELICIANO on SatApr 18, 2022 4:37:20 PM EST [facility] Comment on above: Order Comment: Injur y/Trauma [...] IMPRESSION: No acute osseous abnormality. Workstation ID: [id number] Dictated by: JAK FELICIANO on SatApr 18, 2022 4:37:20 PM EST Transcribed by: JAK FELICIANO on SatApr 18, 2022 4:37:20 PM EST Finalized by: JAK FELICIANO on SatApr 18, 2022 4:37:20 PM EST [facility] Comment on above: Order Comment: Injur y/Trauma or Illness?:Illness/Other How long have you had these symptoms (acute/chronic)?:Acute Reason for exam?:nki History of cancer?: Surgeries, chemotherapy, or radiation?: Type of Exam?:Initial Additional signs and symptoms?: Final Surgical Pathology Rep david 06-02-2020 Final Surgical Pathology Report . Pathology Reports Accession: Collected Date/Time: Received Date/Time: Pathologist: [id number] 05/31/2020 17:00 EST 06/01/2020 08:58 MD TAWNYA BARRETT Final Surgical Pathology Report DIAGNOSIS: VAGINAL BIOPSY - SQUAMOUS PAPILLOMA. CLINICAL INFORMATION: SKIN TAG SPECIMEN: A VAGINAL BIOPSY GROSS DESCRIPTION: A. Received in formalin, labeled with the patients name, Case #[id number], and vaginal biopsy is 1 pedunculated skin excision measuring 0.7 x 0.3 x 0.2 cm. Excision margin inked black. TS -1. Dictated by CORIE IWLEY MICROSCOPIC DESCRIPTION: Slides reviewed. Electronically Signed by Pathology Report verified by [facility] Electronically signed by TAWNYA YOUNG MD Sign out Date: 06/02/2020 13:14 Performing Lab: [facility], [address] [place] [address] ([place]) Comment on above: Performed By: #### S PFR #### [place] [address] HPVon 05-25-2020 HPV Interp Normal See Interp HPVN [facility] ([place]) Comment on above: Order Comment: Order placed by AP_HPV_ORDER rule from [id number] Result Comment: High Risk HPV Typing: NEGATIVE [...] and sufficient DNA to be detected. See Interp HPVN Performed By: #### H PV #### [place] [address] HPV Source Cervix Normal [facility] ([place]) Comment on above: Order Comment: Order placed by AP_HPV_ORDER rule from [id number] Performed By: #### H PV #### [place] [address] Marketing Outreach Coordinator Cytology Reporton 2020 Marketing Outreach Coordinator Cytology Report . Pathology Reports Accession: Collected Date/Time: Received Date/Time: Pathologist: [id number] 05/17/2020 14:14 EST 05/17/2020 18:00 EST Marketing Outreach Coordinator Cytology Report SPECIMEN: Specimen Description: Liquid Prep [...] This Pap Test was analyzed by the Build[employer] ThinPrep Test Imaging System. Due to technical imaging issues or the physical propertied of the specimen slide, a manual screen was indicated. Electronically Signed by Pathology report verified by [facility] Screened by: GL Electronically signed by Gabi Reynaga Sign-Out Date: 05/20/2020 09:17 Performing Lab: [address] States Disclaimer The Pap test is a screening test for cervical cancer. As evidenced by published data, it is subject to both inherent false negative and false positive results. Your patient's results should be interpreted in context with pertinent clinical history including gynecological examination. Normal [facility] ([place]) Comment on above: Performed By: #### G YCR #### [place] [address] Robert 03-05-2020 EMERGENCY PHYSICIAN REPORT This is a preliminary report only, as the practitioner review and authentication has not occurred. 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 [employer] Patient: LM KAM Sex: F : 1975 Age: 44 yr Account No: [id number] Registration Date: 20:12 03/04/2020 Address: [address] [place] [address] Address: [place] [address] REGISTRATION ED Number: [id number] Marital Status: S Financial Class: [facility] Priority: 3 - Urgent Complaint: Pelvic Pain Stated Complaint: pelvic pain starting 1930, hx of ovarian cysts Arrival Date: 03/04/2020 20:12 Triage Date: 03/04/2020 20:17 Mode of Arrival: Walk-In Transfer From: * Home WC: N Language: Azerbaijani Transport: Ambulatory/Walk in BED B24 In: 03/04/2020 20:25:53 03/04/2020 20:25:53 [facility] PATIENT NAME: LM KAM [address] [facility] MED[facility] REC #: [id number] [place] [address] EMERGENCY DEPARTMENT REPORT EMERGENCY DEPARTMENT PHYSICIAN B24 [...] 20:24 CELESTINO Illness: Arthritis 03/04/2020 20:24 [facility] PATIENT NAME: NEGINLM [address] [facility] [facility] Dr. Domingo MEDICAL REC #: [id number] [place] [address] EMERGENCY DEPARTMENT REPORT EMERGENCY DEPARTMENT PHYSICIAN Illness: [...] of self harm. 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 Domingo MEDICAL REC #: [id number] [place] [address] EMERGENCY DEPARTMENT REPORT EMERGENCY DEPARTMENT PHYSICIAN Immunization: [...] baseline BP per pt 03/04/2020 20:24 CELESTINO [facility] PATIENT NAME: LM KAM [address] Domingo MEDICAL REC #: [id number] ROXANN Patel [address] EMERGENCY DEPARTMENT REPORT EMERGENCY DEPARTMENT PHYSICIAN ORDERS LBE 03/04/2020 22:31 N/A Ordered: 03/04/2020 22:31 By ANH JIMENEZ Reviewed: 03/04/2020 22: By ANH JIMENEZ DISCHARGE Diagnosis: LWT 0 03/04/2020 22:31 Disposition: Time: 03/04/2020 22:30 By: ANH JIMENEZ Discharge Time: 03/04/2020 22:30 Type: LBE Condition: LBE Concurred: 03/04/2020 22:31 By: MMWB no answer 2137 and 2227 Referral: 03/04/2020 22:31 MMWB PRESCRIPTIONS CHARGES SIGNATURE JO-ANN JIMENEZ MEDIC MMWB [facility] PATIENT NAME: LM KAM [address] [facility] [address] Domingo MEDICAL REC #: [id number] [place] [address] EMERGENCY DEPARTMENT REPORT EMERGENCY DEPARTMENT PHYSICIAN Normal [facility] VAG SCREEN DNA PROBEon 12-26 KATHERIN DIRECT PROBE Normal [facility] Comment on above: Result Comment: NEGA TIVE Performed at [facility], [address], [address], [place] [address] Performed By: #### B VAG #### [facility] [employer] [facility] [address] [facility], [address] [place] [address] GARDNERELLA VAG. Positive Abnormal NEG [facility] Comment on above: Performed By: #### B VAG #### [facility] [address], [address] [place] [address] TRICHOMONAS VAG. Negative Normal NEG [facility] Comment on above: Performed By: #### B VAG #### [facility] [employer] [address], [address] [place] [address] UA-REFLEX TO CULTUREon 12-24 BACT Negative [facility] Comment on above: Performed By: #### U ACUL #### [facility] [address] [place] [address] CRYSTAL [facility] Comment on above: Result Comment: CA O XAL MODERATE Performed By: #### U ACUL #### [facility] [address] [place] [address] MICROSCOPIC AUTOMATIC MICROSCOPI C URINES [facility] Comment on above: Performed By: #### U ACUL #### [facility] [address] [place] [address] RBC 2 /HPF Normal 0-3 [facility] Comment on above: Performed By: #### U ACUL #### [facility] [address] [place] [address] URINE HYALINE CAST 6 /LPF [facility] Comment on above: Performed By: #### U ACUL #### [facility] [address] [place] [address] URINE SQUAMOUS EPI MODERATE Normal [facility] Comment on above: Performed By: #### U ACUL #### [facility] [address] [place] [address] WBC 1 /HPF Normal 0-3 [facility] Comment on above: Performed By: #### U ACUL #### [facility] [address] [place] [address] Bacteria identified Cx Nom (U) [facility] Comment on above: Result Comment: CULT URE NOT INDICATED Performed at [place] [address] [place] [address] Performed By: #### U ACUL #### [facility] [address] [place] [address] BILI Negative Normal NEG [facility] Comment on above: Performed By: #### U ACUL #### [facility] [address] [place] [address] BLOOD Negative Normal NEG [facility] Comment on above: Performed By: #### U ACUL #### [facility] [address] [place] [address] Clarity (U) CLOUDY [facility] Comment on above: Performed By: #### U ACUL #### [facility] [address] [place] [address] Color (U) ORANGE [facility] Comment on above: Performed By: #### U ACUL #### [facility] [address] [place] [address] GLUC Negative Normal NEG [facility] Comment on above: Performed By: #### U ACUL #### Main Laboratory [facility] [address] [place] [address] KET SMALL Abnormal NEG [facility] Comment on above: Performed By: #### U ACUL #### [facility] [address] [place] [address] LEUK Negative Normal NEG [facility] Comment on above: Performed By: #### U ACUL #### Main Laboratory [facility] [address] [place] [address] NIT Negative Normal NEG [facility] Comment on above: Performed By: #### U ACUL #### Main Laboratory [place] [address] [place] [address] pH (U) 5.5 [pH] Normal 4.6-8.0 [facility] Comment on above: Performed By: #### U ACUL #### [facility] [place] [address] [place] [address] PROT Negative Normal NEG [facility] Comment on above: Performed By: #### U ACUL #### [facility] [place] [address] [place] [address] SP GRAV,URINE 1.023 Normal 1.005-1.030 [facility] Comment on above: Performed By: #### U ACUL #### [facility] [place] [address] [place] [address] URO NORMAL Normal 0-1.0 [facility] Comment on above: Performed By: #### U ACUL #### [facility] [place] [address] [place] [address] CBC with Diffon 05-13-2019 AB IMMATURE NEUT 0.03 K/UL Normal 0.0-0.1 [facility] Comment on above: Performed By: #### C BCD #### [facility] [address] [place] [address] ABS BASO 0.03 K/UL Normal 0.00-0.22 [facility] Comment on above: Performed By: #### C BCD #### [facility] [address] [place] [address] ABS EOS 0.14 K/UL Normal 0-0.45 [facility] Comment on above: Performed By: #### C BCD #### [facility] [address] [place] [address] ABS NEUTROPHILS 3.60 K/UL Normal 1.8-7.7 [facility] Comment on above: Performed By: #### C BCD #### [facility] [address] [place] [address] ABS.NEUT.CALCULATED 3.60 K/UL Normal [facility] Comment on above: Result Comment: Perf ormed at [facility],[address] [place] [address],[place] [address] Performed By: #### C BCD #### [place] [address] [place] [address] Basophils/100 WBC (Bld) 0.40 % Normal 0-1 [facility] Comment on above: Performed By: #### C BCD #### [place] [address] [place] [address] DIFF TYPE AUTO DIFF Normal [facility] Comment on above: Performed By: #### C BCD #### [place] [address] [place] [address] Eosinophils/100 WBC (Bld) 2.00 % Normal 0-3 [facility] Comment on above: Performed By: #### C BCD #### [place] [address] [place] [address] Erythrocyte distribution width (RBC) [Ratio] 13.7 % Normal 11.7-15.0 [facility] Comment on above: Performed By: #### C BCD #### [place] [address] [place] [address] Hematocrit (Bld) [Volume fraction] 43.9 % Normal 36-44 [facility] Comment on above: Performed By: #### C BCD #### [place] [address] [place] [address] Hemoglobin (Bld) [Mass/Vol] 15.2 g/dL High 12.0-15.0 [facility] Comment on above: Performed By: #### C BCD #### [place] [address] [place] [address] Lymphocytes (Bld) [#/Vol] 2.72 10*3/uL Normal 1.2-3.2 [facility] Comment on above: Performed By: #### C BCD #### [place] [address] [place] [address] Lymphocytes/100 WBC (Bld) 38.60 % Normal 20-40 [facility] Comment on above: Performed By: #### C BCD #### [place] [address] [place] [address] MCH (RBC) [Entitic mass] 30.6 pg Normal 26-34 [facility] Comment on above: Performed By: #### C BCD #### [place] [address] [place] [address] MCHC (RBC) [Mass/Vol] 34.6 % Normal 31-37 [facility] Comment on above: Performed By: #### C BCD #### [place] [address] [place] [address] MCV (RBC) [Entitic vol] 88.5 fL Normal 80-100 [facility] Comment on above: Performed By: #### C BCD #### [place] [address] [place] [address] MEAN PLT VOL 9.7 CU Normal 7.0-12.6 [facility] Comment on above: Performed By: #### C BCD #### [place] [address] [place] [address] Monocytes (Bld) [#/Vol] 0.53 10*3/uL Normal 0-0.8 [facility] Comment on above: Performed By: #### C BCD #### [place] [address] [place] [address] Monocytes/100 WBC (Bld) 7.50 % Normal 0-8 [facility] Comment on above: Performed By: #### C BCD #### [place] [address] [place] [address] Neutrophils/100 WBC (Bld) 0.40 % Normal 0.0-1.0 [facility] Comment on above: Performed By: #### C BCD #### [place] [address] [place] [address] Neutrophils/100 WBC (Bld) 51.10 % Normal 50-70 [facility] Comment on above: Performed By: #### C BCD #### [place] [address] [place] [address] NRBC'S 0 /100 WBC Normal 0 [facility] Comment on above: Performed By: #### C BCD #### [place] [address] [place] [address] Platelets (Bld) [#/Vol] 204 10*3/uL Normal 150-450 [facility] Comment on above: Performed By: #### C BCD #### [place] [address] [place] [address] RBC (Bld) [#/Vol] 4.96 M/UL High 4.0-4.9 [facility] Comment on above: Performed By: #### C BCD #### [place] [address] [place] [address] RDW-SD 44.1 FL Normal 37.0-54.0 [facility] Comment on above: Performed By: #### C BCD #### [place] [address] [place] [address] WBC (Bld) [#/Vol] 7.1 10*3/uL Normal 4.5-11.0 [facility] Comment on above: Performed By: #### C BCD #### [place] [address] [place] [address] COMPREHENSIVE METABOLIC PANE [facility] 05-13-2019 Albumin [Mass/Vol] 4.8 g/dL Normal 3.5-5.0 [facility] Comment on above: Performed By: #### C SOLID PROPELLANT PROCESSOR #### [place] [address] [place] [address] Albumin/Globulin [Mass ratio] 2.1 {ratio} Normal 1.5-3.0 [facility] Comment on above: Performed By: #### C SOLID PROPELLANT PROCESSOR #### [place] [address] [place] [address] ALP [Catalytic activity/Vol] 64 U/L Normal 35-125 [facility] Comment on above: Performed By: #### C SOLID PROPELLANT PROCESSOR #### [place] [address] [place] [address] ALT [Catalytic activity/Vol] 8 U/L Normal 5-40 [facility] Comment on above: Performed By: #### C SOLID PROPELLANT PROCESSOR #### [place] [address] [place] [address] Anion gap [Moles/Vol] 8 mmol/L Normal 0-19 [facility] Comment on above: Performed By: #### C SOLID PROPELLANT PROCESSOR #### [place] [address] [place] [address] AST [Catalytic activity/Vol] 13 U/L Normal 5-40 [facility] Comment on above: Performed By: #### C SOLID PROPELLANT PROCESSOR #### [facility] [address] [place] [address] Bilirubin [Mass/Vol] 0.3 mg/dL Normal 0.1-1.2 [facility] Comment on above: Performed By: #### C SOLID PROPELLANT PROCESSOR #### [facility] [address] [place] [address] Calcium [Mass/Vol] 9.7 mg/dL Normal 8.5-10.4 [facility] Comment on above: Performed By: #### C SOLID PROPELLANT PROCESSOR #### [facility] [address] [place] [address] Chloride [Moles/Vol] 102 mmol/L Normal 97-107 [facility] Comment on above: Performed By: #### C SOLID PROPELLANT PROCESSOR #### [facility] [address] [place] [address] CO2 [Moles/Vol] 26 mmol/L Normal 24-31 [facility] Comment on above: Performed By: #### C SOLID PROPELLANT PROCESSOR #### [facility] [address] [place] [address] Creatinine [Mass/Vol] 0.8 mg/dL Normal 0.4-1.6 [facility] Comment on above: Performed By: #### C SOLID PROPELLANT PROCESSOR #### [facility] [address] [place] [address] GFR/1.73 sq M.predicted MDRD (S/P/Bld) [Vol rate/Area] 83 mL/min/1.73 m2 Normal [facility] Comment on above: Result Comment: GFR ml/min/1.73m2 Stage ----- 90 1 60-89 2 30-59 3 15-29 4 <15 5 For -Americans, multiply EGFR result by 1.210 Calculation not validated for patients under 18 years of age. Performed at [facility],[address] [place] [address],[place] [address] Performed By: #### C SOLID PROPELLANT PROCESSOR #### [facility] [address] [place] [address] Globulin (S) [Mass/Vol] 2.3 g/dL Normal 1.9-3.7 [facility] Comment on above: Performed By: #### C SOLID PROPELLANT PROCESSOR #### [facility] [address] [place] [address] Glucose [Mass/Vol] 89 mg/dL Normal 65-99 [facility] Comment on above: Performed By: #### C SOLID PROPELLANT PROCESSOR #### [place] [address] [place] [address] Potassium [Moles/Vol] 4.0 mmol/L Normal 3.4-5.1 [facility] Comment on above: Performed By: #### C SOLID PROPELLANT PROCESSOR #### [place] [address] [place] [address] Protein [Mass/Vol] 7.1 g/dL Normal 5.9-7.9 [facility] Comment on above: Performed By: #### C SOLID PROPELLANT PROCESSOR #### [place] [address] [place] [address] Sodium [Moles/Vol] 136 mmol/L Normal 133-145 [facility] Comment on above: Performed By: #### C SOLID PROPELLANT PROCESSOR #### [place] [address] [place] [address] Urea nitrogen [Mass/Vol] 11 mg/dL Normal 8-25 [facility] Comment on above: Performed By: #### C SOLID PROPELLANT PROCESSOR #### [facility] [address] [place] [address] Urea nitrogen/Creatinine [Mass ratio] 13.8 RATIO Normal 8-21 [facility] Comment on above: Performed By: #### C SOLID PROPELLANT PROCESSOR #### [place] [address] [place] [address] THROAT STREP CULTUREon 04-16 THROAT STREP CULTURE Specimen source XXX : THROAT Service Cmnt XXX-Imp: NONE Bacteria identified: NEGATIVE FOR GROUP A BETA STREP Performed at [address] [address] : FINAL 04/16/2019 [facility] Comment on above: Performed By: #### S TRP #### Main Laboratory [address] [place] [address] HIP BI MIN 2 VIEW EACH W PEL VISon 03-24-2019 HIP BI MIN 2 VIEW EACH W PELVIS *FINAL Date of Service: 03/24/2019 14:11 Adm #: [id number] Reading Dr:REDDY VALDEZ Signoff Dr: REDDY VALDEZ [...] hips without evidence of fracture or dislocation. [id number] This report has been produced using speech recognition. Original Interpreting Physician: REDDY VALDEZ MD Original Transcribed by/Date: [facility] Mar 24 2019 4:11P Original Electronically Signed by/Date: REDDY VALDEZ MD Mar 24 2019 4:11P Addendum Interpreting Physician: Addendum Transcribed by/Date: NO ADDENDUM Addendum Electronically Signed by/Date: [facility] SPINE LUMBOSACRAL 2 VIEWon 1 05-25-2018 SPINE LUMBOSACRAL 2 VIEW *FINAL Date of Service: 03/24/2019 14:11 Adm #: [id number] Reading Dr:REDDY Li Dr: REDDY VALDEZ PROCEDURE: [...] in the lumbar spine, as detailed above. [id number] This report has been produced using speech recognition. Original Interpreting Physician: REDDY VALDEZ MD Original Transcribed by/Date: [facility] Mar 24 2019 4:12P Original Electronically Signed by/Date: REDDY VALDEZ MD Mar 24 2019 4:12P Addendum Interpreting Physician: Addendum Transcribed by/Date: NO ADDENDUM Addendum Electronically Signed by/Date: [facility] SPINE CERVICAL 4 OR 5 VIEWon 03-17-2019 SPINE CERVICAL 4 OR 5 VIEW *FINAL Date of Service: 03/17/2019 11:07 Adm #: [id number] Reading Dr:REDDY VALDEZ Signoff Dr: REDDY VALDEZ PROCEDURE: SPINE CERVICAL 4 [...] in the cervical spine, as detailed above. [id number] This report has been produced using speech recognition. Original Interpreting Physician: REDDY VALDEZ MD Original Transcribed by/Date: [facility] Mar 17 2019 11:21A Original Electronically Signed by/Date: REDDY VALDEZ MD Mar 17 2019 11:21A Addendum Interpreting Physician: Addendum Transcribed by/Date: NO ADDENDUM Addendum Electronically Signed by/Date: [facility] EMERGENCY DEPARTMENT REPORTo n 05-04-2018 EMERGENCY DEPARTMENT REPORT [facility] [place] [address] HEALTH INFORMATION MANAGEMENT EMERGENCY DEPARTMENT REPORT Patient: LM KAM CHANDLER ROELLANA M.D. [id number] F Status: [facility] ER ED Date of Service: 05/03/18 ADDENDUM [...] By: CHANDLER ORELLANA M.D. Tests performed at: [address] [address] Normal [facility] EMERGENCY DEPARTMENT REPORT [facility] [place] [address] HEALTH INFORMATION MANAGEMENT EMERGENCY DEPARTMENT REPORT Patient: LM KAM CHANDLER ORELLANA M.D. [id number] [age] F Status: [facility] ER ED Date of Service: 05/03/18 CHIEF [...] By: CHANDLER ORELLANA M.D. Tests performed at: [address] [address] Normal [facility] BMPon 05-03-2018 Anion gap [Moles/Vol] 19.9 mmol/L Normal 15-22 [facility] Comment on above: Performed By: #### L 100.0010 #### [facility] [address] [place] [address] Calcium [Mass/Vol] 9.1 mg/dL Normal 8.6-10.0 [facility] Comment on above: Performed By: #### L 100.0010 #### [facility] [address] [place] [address] Chloride [Moles/Vol] 102 mmol/L Normal 98-107 [facility] Comment on above: Performed By: #### L 100.0010 #### [facility] [address] [place] [address] CO2 [Moles/Vol] 23 mmol/L Normal 22-29 [facility] Comment on above: Performed By: #### L 100.0010 #### [facility] [address] [place] [address] Creatinine [Mass/Vol] 0.66 mg/dL Normal 0.50-0.90 [facility] Comment on above: Performed By: #### L 100.0010 #### [facility] [address] [place] [address] eGFR if AFR ANT > 60 ml/min/1.73m2 Normal [facility] Comment on above: Result Comment: eGFR >= [...] (www.nkdep.nih.gov). Performed By: #### L 100.0010 #### [facility] [address] [place] [address] eGFR nonAFR Ant > 60 ml/Min/1.73m2 Normal [facility] Comment on above: Performed By: #### L 100.0010 #### [facility] [address] [place] [address] Glucose [Mass/Vol] 90 mg/dL Normal 74-106 [facility] Comment on above: Performed By: #### L 100.0010 #### [facility] [address] [place] [address] Potassium [Moles/Vol] 3.9 mmol/L Normal 3.5-5.0 [facility] Comment on above: Performed By: #### L 100.0010 #### [facility] [address] [place] [address] Sodium [Moles/Vol] 141 mmol/L Normal 135-145 [facility] Comment on above: Performed By: #### L 100.0010 #### [facility] [address] [place] [address] Urea nitrogen [Mass/Vol] 7 mg/dL Normal 6-20 [facility] Comment on above: Performed By: #### L 100.0010 #### [facility] [address] [place] [address] ED PROV NOTEon 01-01-2018 Protein mass conc HNO ID: [id number] thor: Chavo Ruelas: (none)Author Type: PhysicianType: ED Provider NotesFiled: 02/06/2018 9:11 PMNote Text:[place], [place] [address] INFORMATION MANAGEMENTEMERGENCY DEPARTMENT REPORTPatient: JOSH KAM CONNOR B D.O.[id number] FStatus: DEP ER EDDate of Service: [...] D.O. Signed By: CHAVO LAIRD D.O.Tests performed at:[address] [phone] Normal [facility] Vital Signs Date Time Vital Sign Value Performing Clinician Facility 12-11-2024 13:56-0400 Body mass index (BMI) [Ratio] 20.43 kg/m2 Blake Falcon APRN.[employer] Work Phone: [facility] 12-11-2024 13:56-0400 Body temperature 97.7 [degF] Blake Falcon APRN.[facility] Work Phone: [facility] 12-11-2024 13:56-0400 Body weight 54 kg Blake Falcon APRN.[employer] Work Phone: [facility] 12-11-2024 13:56-0400 Diastolic blood pressure 62 mm[Hg] Blake Falcon APRN.[employer] Work Phone: [facility] 12-11-2024 13:56-0400 Heart rate 97 /min Blake Falcon APRN.[employer] Work Phone: [facility] 12-11-2024 13:56-0400 Respiratory rate 20 /min Blake Falcon APRN.[employer] Work Phone: [facility] 12-11-2024 13:56-0400 SaO2% (BldA) [Mass fraction] 98 % Blake Falcon APRN.[employer] Work Phone: [facility] 12-11-2024 13:56-0400 Systolic blood pressure 94 mm[Hg] Blake Falcon CARDIOTHORACIC ICU RN.[employer] ASSOCIATE Work Phone: [facility] 11-16-2024 13:02-0400 Body mass index (BMI) [Ratio] 20.21 kg/m2 [facility] Park CARDIOTHORACIC ICU RN.[employer] RESEARCH ASSOCIATE Work Phone: [facility] 11-16-2024 13:02-0400 Body temperature 98.91 [degF] [facility] CARDIOTHORACIC ICU RN.[employer] RESEARCH ASSOCIATE Work Phone: [facility] 11-16-2024 13:02-0400 Body weight 53.4 kg Jo[facility] CARDIOTHORACIC ICU RN.FIELD RESEARCH ASSOCIATE Work Phone: [facility] 11-16-2024 13:02-0400 Diastolic blood pressure 64 mm[Hg] [facility] CARDIOTHORACIC ICU RN.[employer] RESEARCH ASSOCIATE Work Phone: [facility] 11-16-2024 13:02-0400 Heart rate 100 /min [facility] CARDIOTHORACIC ICU RN.[employer] RESEARCH ASSOCIATE Work Phone: [facility] 11-16-2024 13:02-0400 Respiratory rate 18 /min [facility] CARDIOTHORACIC ICU RN.[employer] RESEARCH ASSOCIATE Work Phone: [facility] 11-16-2024 13:02-0400 SaO2% (BldA) [Mass fraction] 98 % [facility] CARDIOTHORACIC ICU RN.FIELD RESEARCH ASSOCIATE Work Phone: [facility] 11-16-2024 13:02-0400 Systolic blood pressure 100 mm[Hg] Jo-[facility] Park CARDIOTHORACIC ICU RN.[employer] RESEARCH ASSOCIATE Work Phone: [facility] 11-14-2024 10:46-0400 Body mass index (BMI) [Ratio] 20.66 kg/m2 Gideon Ace CARDIOTHORACIC ICU RN.[employer] ASSOCIATE Work Phone: [facility] 11-14-2024 10:46-0400 Body temperature 97 [degF] Gideon Ace CARDIOTHORACIC ICU RN.[employer] RESEARCH ASSOCIATE Work Phone: [facility] 11-14-2024 10:46-0400 Body weight 54.6 kg Gideon Ace APRN.[employer] RESE[employer] ASSOCIATE Work Phone: [facility] 11-14-2024 10:46-0400 Diastolic blood pressure 68 mm[Hg] Gideon Ace APRN.[employer] RESE[employer] ASSOCIATE Work Phone: [facility] 11-14-2024 10:46-0400 Heart rate 78 /min Gideon Ace APRN.[employer] RESE[employer] ASSOCIATE Work Phone: [facility] 11-14-2024 10:46-0400 Respiratory rate 20 /min Gideon Ace APRN.[employer] RESEARCH ASSOCIATE Work Phone: [facility] 11-14-2024 10:46-0400 SaO2% (BldA) [Mass fraction] 99 % Gideon Ace APRN.[employer] RESE[employer] ASSOCIATE Work Phone: [facility] 11-14-2024 10:46-0400 Systolic blood pressure 100 mm[Hg] Gideon Ace APRN.[employer] RESEARCH ASSOCIATE Work Phone: [facility] 09-18-2024 16:10-0400 Body temperature 97.5 [degF] Dr. Rik Marshall DO Work Phone: [facility] 09-18-2024 16:10-0400 Diastolic blood pressure 65 mm[Hg] Dr. Rik Abdalla Work Phone: [facility] 09-18-2024 16:10-0400 Heart rate 98 /min Dr. iRk Abdalla Work Phone: [facility] 09-18-2024 16:10-0400 Respiratory rate 14 /min Dr. Rik Abdalla Work Phone: [facility] 09-18-2024 16:10-0400 SaO2% (BldA) [Mass fraction] 99 % Dr. Rik Abdalla Work Phone: [facility] 09-18-2024 16:10-0400 Systolic blood pressure 100 mm[Hg] Dr. Rik Abdalla Work Phone: [facility] 09-18-2024 13:07-0400 Body height 162.[address] Rik Abdalla Work Phone: 4(356)513-179356 [place] [address] 09-18-2024 13:07-0400 Body mass index (BMI) [Ratio] 19.9 kg/m2 Dr. Rik Abdalla Work Phone: 0(160)029-860156 [place] [address] 09-18-2024 13:07-0400 Body weight 52.[address] Rik Abdalla Work Phone: 2(369)650-438973 [place] [address] 09-10-2024 08:30-0400 Body height 162.[address] Rik Abdalla Work Phone: 1(731)215-738273 [place] [address] 09-10-2024 08:30-0400 Body mass index (BMI) [Ratio] 20.1 kg/m2 Dr. Rik Abdalla Work Phone: 4(098)779-176573 [place] [address] 09-10-2024 08:30-0400 Body weight 53.[address] Rik Abdalla Work Phone: 1(166)915-185773 [place] [address] 09-10-2024 08:30-0400 Diastolic blood pressure 72 mm[Hg] Dr. Rik Abdalla Work Phone: 2(640)173-676673 [place] [address] 09-10-2024 08:30-0400 Systolic blood pressure 107 mm[Hg] Dr. Rik Abdalla Work Phone: 8(976)894-054573 [place] [address] 09-08-2024 10:47-0400 Body height 162.[address] Rik Abdalla Work Phone: 8(074)838-524573 [place] [address] 09-08-2024 10:47-0400 Body mass index (BMI) [Ratio] 20.2 kg/m2 Dr. Rik Abdalla Work Phone: 9(268)579-180556 [place] [address] 09-08-2024 10:47-0400 Body weight 53.[address] Rik Abdalla Work Phone: 8(938)813-107473 [place] [address] 09-08-2024 10:47-0400 Diastolic blood pressure 76 mm[Hg] Dr. Rik Abdalla Work Phone: 4(699)466-930473 [place] [address] 09-08-2024 10:47-0400 Heart rate 108 /min Dr. Rik Abdalla Work Phone: 1(206)261-907556 [place] [address] 09-08-2024 10:47-0400 Respiratory rate 19 /min Dr. Rik Marshall DO Work Phone: 5(781)318-996673 [place] [address] 09-08-2024 10:47-0400 SaO2% (BldA) [Mass fraction] 98 % Dr. Rik Abdalla Work Phone: 3(350)202-416173 [place] [address] 09-08-2024 10:47-0400 Systolic blood pressure 128 mm[Hg] Dr. Rik Abdalla Work Phone: 9(836)228-938473 [place] [address] 09-03-2024 09:32-0400 Body height 162.[address] Rik Abdalla Work Phone: 5(669)337-308173 [place] [address] 09-03-2024 09:26-0400 Body mass index (BMI) [Ratio] 20.7 kg/m2 Dr. Rik Abdalla Work Phone: 2(097)601-597473 [place] [address] 09-03-2024 09:26-0400 Body weight 54.[address] Rik Abdalla Work Phone: 4(465)637-831773 [place] [address] 09-03-2024 09:26-0400 Diastolic blood pressure 70 mm[Hg] Dr. Rik Abdalla Work Phone: 0(450)117-122573 [place] [address] 09-03-2024 09:26-0400 Systolic blood pressure 113 mm[Hg] Dr. Rik Abdalla Work Phone: 2(973)104-240273 [place] [address] 08-30-2024 17:52-0400 Body temperature 98.1 [degF] Dr. Rik Abdalla Work Phone: 1(987)821-675956 [place] [address] 08-30-2024 17:52-0400 Diastolic blood pressure 59 mm[Hg] Dr. Rik Abdalla Work Phone: 1(370)418-173856 [place] [address] 08-30-2024 17:52-0400 Heart rate 78 /min Dr. Rik Abdalla Work Phone: 7(415)309-229656 [place] [address] 08-30-2024 17:52-0400 Respiratory rate 16 /min Dr. Rik Le DO Work Phone: [facility] 08-30-2024 17:52-0400 SaO2% (BldA) [Mass fraction] 99 % Dr. Rik Abdalla Work Phone: 7(025)850-848956 [place] [address] 08-30-2024 17:52-0400 Systolic blood pressure 118 mm[Hg] Dr. Rik Abdalla Work Phone: 8(657)036-795173 [place] [address] 08-30-2024 11:07-0400 Body height 162.[address] Rik Abdalla Work Phone: 3(080)545-203873 [place] [address] 08-30-2024 11:07-0400 Body mass index (BMI) [Ratio] 22.6 kg/m2 Dr. Rik Abdalla Work Phone: 3(357)857-706373 [place] [address] 08-30-2024 11:07-0400 Body weight 59.[address] Rik Abdalla Work Phone: 8(128)909-381473 [place] [address] 08-28-2024 14:58-0400 Body temperature 98 [degF] Dr. Rik Abdalla Work Phone: 7(789)090-504773 [place] [address] 08-28-2024 14:58-0400 Diastolic blood pressure 78 mm[Hg] Dr. Rik Abdalla Work Phone: 0(126)176-970473 [place] [address] 08-28-2024 14:58-0400 Heart rate 78 /min Dr. Rik Abdalla Work Phone: 6(966)321-439556 [place] [address] 08-28-2024 14:58-0400 Respiratory rate 18 /min Dr. Rik Abdalla Work Phone: 5(266)955-838673 [place] [address] 08-28-2024 14:58-0400 SaO2% (BldA) [Mass fraction] 100 % Dr. Rik Abdalla Work Phone: 9(891)164-610856 [place] [address] 08-28-2024 14:58-0400 Systolic blood pressure 112 mm[Hg] Dr. Rik Abdalla Work Phone: 5(764)004-537256 [place] [address] 08-28-2024 11:36-0400 Body mass index (BMI) [Ratio] 21.4 kg/m2 Dr. Rik Abdalla Work Phone: 9(846)266-688556 [place] [address] 08-28-2024 11:36-0400 Body weight 56.[address] Rik Abdalla Work Phone: 1(265)927-505456 [place] [address] 08-26-2024 08:00-0400 Body temperature 97.8 [degF] Dr. Rik Abdalla Work Phone: 2(989)551-082056 [place] [address] 08-26-2024 08:00-0400 Diastolic blood pressure 54 mm[Hg] Dr. Rik Abdalla Work Phone: 6(663)629-174356 [place] [address] 08-26-2024 08:00-0400 Heart rate 80 /min Dr. Rik Abdalla Work Phone: 9(802)649-651756 [place] [address] 08-26-2024 08:00-0400 Respiratory rate 16 /min Dr. Rik Abdalla Work Phone: 8(125)193-454573 [place] [address] 08-26-2024 08:00-0400 SaO2% (BldA) [Mass fraction] 97 % Dr. Rik Abdalla Work Phone: 7(341)777-190256 [place] [address] 08-26-2024 08:00-0400 Systolic blood pressure 101 mm[Hg] Dr. Rik Abdalla Work Phone: 4(955)400-989756 [place] [address] 08-25-2024 21:02-0400 Body height 163.[address] Rik Abdalla Work Phone: 7(971)268-515156 [place] [address] 08-25-2024 21:02-0400 Body mass index (BMI) [Ratio] 21.4 kg/m2 Dr. Rik Abdalla Work Phone: 7(537)624-875456 [place] [address] 08-25-2024 21:02-0400 Body weight 57.[address] Rik Abdalla Work Phone: 5(720)913-802256 [place] [address] 08-18-2024 10:02-0400 Body height 162.[address] Rik Abdalla Work Phone: 3(865)005-174856 [place] [address] 08-18-2024 10:02-0400 Body mass index (BMI) [Ratio] 20.4 kg/m2 Dr. Rik Abdalla Work Phone: [facility] 08-18-2024 10:02-0400 Body weight 53.[address] Rik Abdalla Work Phone: 8(921)893-143356 [place] [address] 08-18-2024 10:02-0400 Diastolic blood pressure 73 mm[Hg] Dr. Rik Abdalla Work Phone: 2(151)527-029056 [place] [address] 08-18-2024 10:02-0400 Systolic blood pressure 111 mm[Hg] Dr. Rik Abdalla Work Phone: 1(429)405-608856 [place] [address] 08-13-2024 08:22-0400 Body mass index (BMI) [Ratio] 20.4 kg/m2 Dr. Rik Abdalla Work Phone: 6(734)008-465156 [place] [address] 08-13-2024 08:22-0400 Body weight 53.[address] Rik Abdalla Work Phone: 4(557)848-789156 [place] [address] 08-13-2024 08:22-0400 Diastolic blood pressure 58 mm[Hg] Dr. Rik Abdalla Work Phone: 9(260)452-001056 [place] [address] 08-13-2024 08:22-0400 Systolic blood pressure 100 mm[Hg] Dr. Rik Abdalla Work Phone: 7(602)026-297456 [place] [address] 08-11-2024 14:28-0400 Body temperature 98.6 [degF] Dr. Rik Abdalla Work Phone: 1(084)659-108756 [place] [address] 08-11-2024 14:28-0400 Diastolic blood pressure 78 mm[Hg] Dr. Rik Abdalla Work Phone: 9(689)020-908256 [place] [address] 08-11-2024 14:28-0400 Heart rate 78 /min Dr. Rik Abdalla Work Phone: 8(095)442-802256 [place] [address] 08-11-2024 14:28-0400 Respiratory rate 18 /min Dr. Rik Abdalla Work Phone: [facility] 08-11-2024 14:28-0400 SaO2% (BldA) [Mass fraction] 98 % Dr. Rik Le DO Work Phone: [facility] 08-11-2024 14:28-0400 Systolic blood pressure 128 mm[Hg] Dr. Rik Marshall DO Work Phone: 4(071)136-347756 [place] [address] 08-11-2024 10:27-0400 Body mass index (BMI) [Ratio] 20.2 kg/m2 Dr. Rik Marshall DO Work Phone: 0(784)420-484656 [place] [address] 08-11-2024 10:27-0400 Body weight 53.[address] Rik Marshall DO Work Phone: 0(860)832-932256 [place] [address] 08-09-2024 11:49-0400 Body temperature 97.7 [degF] Dr. Rik Abdalla Work Phone: 1(994)302-826056 [place] [address] 08-09-2024 11:49-0400 Diastolic blood pressure 74 mm[Hg] Dr. Rik Abdalla Work Phone: 9(789)311-257673 [place] [address] 08-09-2024 11:49-0400 Heart rate 68 /min Dr. Rik Abdalla Work Phone: 1(451)614-220556 [place] [address] 08-09-2024 11:49-0400 Respiratory rate 18 /min Dr. Rik Abdalla Work Phone: 7(418)150-425656 [place] [address] 08-09-2024 11:49-0400 SaO2% (BldA) [Mass fraction] 99 % Dr. Rik Abdalla Work Phone: 9(218)559-435756 [place] [address] 08-09-2024 11:49-0400 Systolic blood pressure 104 mm[Hg] Dr. Rik Abdalla Work Phone: 2(241)557-876856 [place] [address] 08-09-2024 11:28-0400 Body mass index (BMI) [Ratio] 20.4 kg/m2 Dr. Rik Abdalla Work Phone: 4(351)315-371856 [place] [address] 08-09-2024 11:28-0400 Body weight [address] Rik Marshall DO Work Phone: 0(991)714-086156 [place] [address] 07-28-2024 17:40-0400 Body temperature 98.1 [degF] Dr. Rik Marshall DO Work Phone: 9(163)793-387456 [place] [address] 07-28-2024 17:40-0400 Diastolic blood pressure 78 mm[Hg] Dr. Rik Abdalla Work Phone: 9(736)007-115056 [place] [address] 07-28-2024 17:40-0400 Heart rate 98 /min Dr. Rik Marshall DO Work Phone: 8(499)543-044173 [place] [address] 07-28-2024 17:40-0400 Respiratory rate 19 /min Dr. Rik Marshall DO Work Phone: 8(151)160-118773 [place] [address] 07-28-2024 17:40-0400 SaO2% (BldA) [Mass fraction] 98 % Dr. Rik Abdalla Work Phone: 2(631)428-882373 [place] [address] 07-28-2024 17:40-0400 Systolic blood pressure 117 mm[Hg] Dr. Rik Abdalla Work Phone: 9(015)742-652373 [place] [address] 07-28-2024 15:56-0400 Body height 162.[address] Rik Abdalla Work Phone: 6(375)343-062673 [place] [address] 07-28-2024 15:56-0400 Body mass index (BMI) [Ratio] 20.2 kg/m2 Dr. Rik Abdalla Work Phone: 6(058)456-444573 [place] [address] 07-28-2024 15:56-0400 Body weight 53.[address] Rik Abdalla Work Phone: 0(622)566-510373 [place] [address] 07-15-2024 10:45-0400 Body mass index (BMI) [Ratio] 20 kg/m2 Dr. Rik Abdalla Work Phone: 0(981)605-841573 [place] [address] 07-15-2024 10:45-0400 Body weight 53.[address] Rik Abdalla Work Phone: 3(002)722-323873 [place] [address] 07-15-2024 10:45-0400 Diastolic blood pressure 66 mm[Hg] Dr. Rik Abdalla Work Phone: 1(509)109-102356 [place] [address] 07-15-2024 10:45-0400 Systolic blood pressure 101 mm[Hg] Dr. Rik Abdalla Work Phone: 8(007)095-696456 [place] [address] 07-08-2024 21:19-0400 Body temperature 98 [degF] Dr. Rik Marshall DO Work Phone: 5(022)958-244556 [place] [address] 07-08-2024 21:19-0400 Diastolic blood pressure 62 mm[Hg] Dr. Rik Marshall DO Work Phone: 0(860)893-020956 [place] [address] 07-08-2024 21:19-0400 Heart rate 80 /min Dr. Rik Marshall DO Work Phone: 7(153)026-845456 [place] [address] 07-08-2024 21:19-0400 Respiratory rate 18 /min Dr. Rik Marshall DO Work Phone: 8(295)677-921573 [place] [address] 07-08-2024 21:19-0400 SaO2% (BldA) [Mass fraction] 96 % Dr. Rik Marshall DO Work Phone: 7(640)616-427456 [place] [address] 07-08-2024 21:19-0400 Systolic blood pressure 107 mm[Hg] Dr. Rik Abdalla Work Phone: 7(462)518-825956 [place] [address] 07-08-2024 18:26-0400 Body height 162.[address] Rik Abdalla Work Phone: 3(131)798-480356 [place] [address] 07-08-2024 18:26-0400 Body mass index (BMI) [Ratio] 19.8 kg/m2 Dr. Rik Abdalla Work Phone: 6(289)077-602456 [place] [address] 07-08-2024 18:26-0400 Body weight 52.[address] Rik Abdalla Work Phone: 3(150)608-237556 [place] [address] 06-07-2024 13:21-0500 Body temperature 98.2 [degF] Dr. Rik Abdalla Work Phone: 2(912)673-236056 [place] [address] 06-07-2024 13:21-0500 Diastolic blood pressure 73 mm[Hg] Dr. Rik Abdalla Work Phone: 1(591)511-610556 [place] [address] 06-07-2024 13:21-0500 Heart rate 60 /min Dr. Rik Abdalla Work Phone: 7(825)322-530756 [place] [address] 06-07-2024 13:21-0500 Respiratory rate 16 /min Dr. Rik Abdalla Work Phone: 8(036)692-329456 [place] [address] 06-07-2024 13:21-0500 SaO2% (BldA) [Mass fraction] 99 % Dr. Rik Abdalla Work Phone: 0(877)868-301156 [place] [address] 06-07-2024 13:21-0500 Systolic blood pressure 95 mm[Hg] Dr. Rik Abdalla Work Phone: 2(232)042-086356 [place] [address] 06-07-2024 09:51-0500 Body mass index (BMI) [Ratio] 19.3 kg/m2 Dr. Rik Abdalla Work Phone: 6(546)291-945856 [place] [address] 06-07-2024 09:51-0500 Body weight 51.[address] Rik Abdalla Work Phone: 7(632)895-672256 [place] [address] 06-04-2024 16:09-0500 Body mass index (BMI) [Ratio] 19.3 kg/m2 Dr. Rik Abdalla Work Phone: 9(891)992-672856 [place] [address] 06-04-2024 16:09-0500 Body temperature 97.6 [degF] Dr. Rik Abdalla Work Phone: 7(432)444-939856 [place] [address] 06-04-2024 16:09-0500 Body weight 51.[address] Rik Abdalla Work Phone: 4(555)258-397956 [place] [address] 06-04-2024 16:09-0500 Diastolic blood pressure 70 mm[Hg] Dr. Rik Abdalla Work Phone: 7(859)690-608356 [place] [address] 06-04-2024 16:09-0500 Heart rate 73 /min Dr. Rik Abdalla Work Phone: 3(295)791-033856 [place] [address] 06-04-2024 16:09-0500 Respiratory rate 15 /min Dr. Rik Abdalla Work Phone: 9(147)613-804556 [place] [address] 06-04-2024 16:09-0500 SaO2% (BldA) [Mass fraction] 98 % Dr. Rik Abdalla Work Phone: 8(633)423-077656 [place] [address] 06-04-2024 16:09-0500 Systolic blood pressure 111 mm[Hg] Dr. Rik Marshall DO Work Phone: 4(067)892-585573 [place] [address] 06-04-2024 02:18-0500 Body temperature 98 [degF] Dr. Rik Marshall DO Work Phone: 0(291)306-580356 [place] [address] 06-04-2024 02:18-0500 Diastolic blood pressure 56 mm[Hg] Dr. Rik Marshall DO Work Phone: 3(919)132-480273 [place] [address] 06-04-2024 02:18-0500 Heart rate 67 /min Dr. Rik Marshall DO Work Phone: 4(393)055-466473 [place] [address] 06-04-2024 02:18-0500 Respiratory rate 14 /min Dr. Rik Abdalla Work Phone: 5(279)343-301173 [place] [address] 06-04-2024 02:18-0500 SaO2% (BldA) [Mass fraction] 98 % Dr. Rik Marshall DO Work Phone: 1(429)108-789673 [place] [address] 06-04-2024 02:18-0500 Systolic blood pressure 104 mm[Hg] Dr. Rik Abdalla Work Phone: 1(195)920-149873 [place] [address] 06-04-2024 00:10-0500 Body mass index (BMI) [Ratio] 19.5 kg/m2 Dr. Rik Abdalla Work Phone: 2(990)368-058656 [place] [address] 06-04-2024 00:10-0500 Body weight 51.[address] Rik Abdalla Work Phone: [facility] 04-26-2024 16:29-0500 Body temperature 97.59 [degF] Delano Mayen DO Work Phone: [facility] 04-26-2024 16:29-0500 Diastolic blood pressure 82 mm[Hg] Delano Mayen DO Work Phone: [facility] 04-26-2024 16:29-0500 Heart rate 95 /min Delano Mayen DO Work Phone: [facility] 04-26-2024 16:29-0500 Respiratory rate 20 /min Delano Mayen DO Work Phone: [facility] [employer] 04-26-2024 16:29-0500 SaO2% (BldA) [Mass fraction] 98 % Delano Mayen DO Work Phone: [facility] [employer] 04-26-2024 16:29-0500 Systolic blood pressure 113 mm[Hg] Delano Mayen DO Work Phone: [facility] [employer] 04-01-2024 05:07-0500 Body temperature 98.1 [degF] Hemal Choe DO Work Phone: [facility] [employer] 04-01-2024 05:07-0500 Diastolic blood pressure 67 mm[Hg] Hemal Choe DO Work Phone: [facility] [employer] 04-01-2024 05:07-0500 Heart rate 88 /min Hemal Choe DO Work Phone: [facility] [employer] 04-01-2024 05:07-0500 Respiratory rate 18 /min Hemal Choe DO Work Phone: [facility] [employer] 04-01-2024 05:07-0500 SaO2% (BldA) [Mass fraction] 96 % Hemal Choe DO Work Phone: [facility] [employer] 04-01-2024 05:07-0500 Systolic blood pressure 97 mm[Hg] Hemal Choe DO Work Phone: [facility] 03-11-2024 10:27-0500 Body height 162.6 cm Akilah Balderrama PA-C Work Phone: [facility] 03-11-2024 10:27-0500 Body mass index (BMI) [Ratio] 18.88 kg/m2 Akilah Balderrama PA-C Work Phone: [facility] 03-11-2024 10:27-0500 Body weight 49.9 kg Akilah Balderrama PA-C Work Phone: [facility] 03-11-2024 10:27-0500 Diastolic blood pressure 62 mm[Hg] Akilah Balderrama PA-C Work Phone: [facility] 03-11-2024 10:27-0500 Systolic blood pressure 100 mm[Hg] Akilah Balderrama PA-C Work Phone: [facility] 02-24-2024 19:44-0500 Body temperature 97.11 [degF] Jak Medellin MD Work Phone: [facility] 02-24-2024 19:44-0500 Diastolic blood pressure 68 mm[Hg] Jak Medellin MD Work Phone: [facility] 02-24-2024 19:44-0500 Heart rate 77 /min Jak Medellin MD Work Phone: [facility] 02-24-2024 19:44-0500 Respiratory rate 16 /min Jak Medellin MD Work Phone: [facility] 02-24-2024 19:44-0500 SaO2% (BldA) [Mass fraction] 98 % Jak Medellin MD Work Phone: [facility] 02-24-2024 19:44-0500 Systolic blood pressure 106 mm[Hg] Jak Medellin MD Work Phone: [facility] 02-24-2024 19:44-0500 Body height 162.6 cm Jak Medellin MD Work Phone: [facility] 02-24-2024 19:44-0500 Body mass index (BMI) [Ratio] 19.4 kg/m2 Jak Medellin MD Work Phone: [facility] 02-24-2024 19:44-0500 Body weight 51.26 kg Jak Medellin MD Work Phone: [facility] [employer] 12-20-2023 08:23-0400 Diastolic blood pressure 66 mm[Hg] Karolina Yoder MD Work Phone: [facility] 12-20-2023 08:23-0400 Heart rate 66 /min Karolina Yoder MD Work Phone: [facility] 12-20-2023 08:23-0400 Respiratory rate 18 /min Karolina Yoder MD Work Phone: [facility] 12-20-2023 08:23-0400 SaO2% (BldA) [Mass fraction] 99 % Karolina Yoder MD Work Phone: [facility] 12-20-2023 08:23-0400 Systolic blood pressure 104 mm[Hg] Karolina Yoder MD Work Phone: [facility] 12-20-2023 03:03-0400 Body temperature 98.2 [degF] Karolina Yoder MD Work Phone: [facility] 10-03-2023 08:27-0400 Body temperature 97.9 [degF] Wendy Lenaway PA-C Work Phone: [facility] 10-03-2023 08:27-0400 Diastolic blood pressure 83 mm[Hg] Wendy Lenaway PA-C Work Phone: [facility] 10-03-2023 08:27-0400 Heart rate 86 /min Wendy Lenaway PA-C Work Phone: [facility] 10-03-2023 08:27-0400 Respiratory rate 16 /min Wendy Lenaway PA-C Work Phone: [facility] 10-03-2023 08:27-0400 SaO2% (BldA) [Mass fraction] 100 % Wendy Lenaway PA-C Work Phone: [facility] 10-03-2023 08:27-0400 Systolic blood pressure 122 mm[Hg] Wendy Lenaway PA-C Work Phone: [facility] 09-30-2023 14:37-0400 Body temperature 98.01 [degF] Devante Hiram DO Work Phone: [facility] 09-30-2023 14:37-0400 Diastolic blood pressure 74 mm[Hg] Devante Hiram DO Work Phone: [facility] 09-30-2023 14:37-0400 Heart rate 110 /min Devante Hiram DO Work Phone: [facility] 09-30-2023 14:37-0400 Respiratory rate 22 /min Devanteraegan Gandhi DO Work Phone: [facility] 09-30-2023 14:37-0400 SaO2% (BldA) [Mass fraction] 97 % Devanteraegan Gandhi DO Work Phone: [facility] 09-30-2023 14:37-0400 Systolic blood pressure 111 mm[Hg] Devanteraegan Gandhi DO Work Phone: [facility] 07-29-2023 12:31-0400 Body height 164.8 cm Kingsley Marques MD Work Phone: [facility] 07-29-2023 12:31-0400 Body mass index (BMI) [Ratio] 18.98 kg/m2 Kingsley Marques MD Work Phone: [facility] 07-29-2023 12:31-0400 Body temperature 98.71 [degF] Kingsley Marques MD Work Phone: [facility] 07-29-2023 12:31-0400 Body weight 51.55 kg Kingsley Marques MD Work Phone: [facility] 07-29-2023 12:31-0400 Diastolic blood pressure 74 mm[Hg] Kingsley Marques MD Work Phone: [facility] 07-29-2023 12:31-0400 Heart rate 87 /min Kingsley Marques MD Work Phone: [facility] 07-29-2023 12:31-0400 Systolic blood pressure 115 mm[Hg] Kingsley Marques MD Work Phone: [facility] 06-16-2023 11:54-0400 Body temperature 98.2 [degF] Jeremy Willard MD, PhD Work Phone: [facility] 06-16-2023 11:54-0400 Diastolic blood pressure 57 mm[Hg] Jeremy Willard MD, PhD Work Phone: [facility] 06-16-2023 11:54-0400 Heart rate 62 /min Jeremy Willard MD, PhD Work Phone: [facility] 06-16-2023 11:54-0400 Respiratory rate 20 /min Jeremy Willard MD, PhD Work Phone: [facility] 06-16-2023 11:54-0400 SaO2% (BldA) [Mass fraction] 99 % Jeremy Willard MD, PhD Work Phone: [facility] 06-16-2023 11:54-0400 Systolic blood pressure 97 mm[Hg] Jeremy Willard MD, PhD Work Phone: [facility] 06-07-2023 12:47-0500 Body temperature 98.71 [degF] Moriah Malin MD Work Phone: [facility] 06-07-2023 12:47-0500 Body weight 53.52 kg Moriah Malin MD Work Phone: [facility] 06-07-2023 12:47-0500 Diastolic blood pressure 60 mm[Hg] Moriah Malin MD Work Phone: [facility] 06-07-2023 12:47-0500 Heart rate 87 /min Moriah Malin MD Work Phone: [facility] 06-07-2023 12:47-0500 Respiratory rate 14 /min Moriah Malin MD Work Phone: [facility] 06-07-2023 12:47-0500 Systolic blood pressure 95 mm[Hg] Moriah Malin MD Work Phone: [facility] 05-29-2023 09:33-0500 Body temperature 97.81 [degF] Wendy Lenaway PA-C Work Phone: [facility] 05-29-2023 09:33-0500 Body weight 53.52 kg Wendy Lenaway PA-C Work Phone: [facility] 05-29-2023 09:33-0500 Diastolic blood pressure 65 mm[Hg] Wendy Lenaway PA-C Work Phone: [facility] 05-29-2023 09:33-0500 Heart rate 83 /min Wendy Heaton PA-C Work Phone: [facility] 05-29-2023 09:33-0500 Respiratory rate 15 /min Wendy Heaton PA-C Work Phone: [facility] 05-29-2023 09:33-0500 Systolic blood pressure 97 mm[Hg] Wendy Heaton PA-C Work Phone: [facility] Encounters Encounter Date Encounter Type Care Provider Facility Start: 01-21-2025 End: 01-21-2025 ambulatory JEFFRY GERONIMO Facility:[facility] Start: 12-19-2024 End: 12-19-2024 Letter encounter Marge Mora INFORMATION TECHNOLOGY SECURITY ANALYST Work Phone: [facility] Start: 12-11-2024 End: 12-11-2024 Patient encounter procedure Blake Falcon CARDIOTHORACIC ICU RN.[employer] ASSOCIATE Work Phone: [facility] Comment on above: Facial swelling (Halley shasha Dx) Start: 12-11-2024 End: 12-11-2024 ambulatory BLAKE FALCON Facility:[facility] Start: 11-16-2024 End: 11-16-2024 Patient encounter procedure Jo-[place] CARDIOTHORACIC ICU RN.FIELD RESEARCH ASSOCIATE Work Phone: [facility] Comment on above: Insect bite of left knee, subsequent encounter (Primary Dx) Refill Request Start: 11-16-2024 End: 11-16-2024 ambulatory DELANO MAYEN Facility:[facility] Start: 11-14-2024 End: 11-14-2024 Patient encounter procedure Gideon Ace CARDIOTHORACIC ICU RN.FIELD RESEARCH ASSOCIATE Work Phone: [facility] Comment on above: Insect bite of left knee, initial encounter (Primary Dx) Start: 11-14-2024 End: 11-14-2024 ambulatory GIDEON ACE Facility:[facility] Start: 09-18-2024 End: 09-18-2024 Emergency department patient visit Dr. Rik Abdalla Work Phone: -Emergency Department Work Phone: Start: 09-10-2024 End: 09-10-[address] Treasure Cardoso MD -[facility] Work Phone: Start: 09-10-2024 End: 09-10-[address] Rik Abdalla Work Phone: [facility] Work Phone: Start: 09-08-2024 End: 09-08-[address] Jak Casas MD -[facility] Work Phone: Start: 09-08-2024 End: 09-08-[address] Rik Abdalla Work Phone: [facility] Work Phone: Start: 09-03-2024 End: 09-03-[address] Treasure Cardoso MD -[facility] Work Phone: Start: 09-03-2024 End: 09-03-[address] Rik Abdalla Work Phone: [facility] Work Phone: Start: 08-30-2024 End: 08-30-2024 Emergency department patient visit Dr. Rik Abdalla Work Phone: -Emergency Department Work Phone: Start: 08-28-2024 End: 08-28-2024 Emergency department patient visit Dr. Rik Abdalla Work Phone: -Emergency Department Work Phone: Start: 08-26-2024 Non-patient / Non-visit Dr. Rowan Cardoso MD -[facility] Start: 08-25-2024 ambulatory Treasure jain:LUIS Start: 08-25-2024 End: 08-26-2024 Evaluation and management of inpatient Dr. Treasure Cardoso MD -[facility] Work Phone: Start: 08-25-2024 ambulatory Treasure Cardoso Faci lity:[facility] Start: 08-25-2024 Non-patient / Non-visit Dr. Rowan Cardoso MD -[facility] Start: 08-20-2024 End: 08-20-2024 ambulatory Treasure Cardoso Facility:[facility] Start: 08-20-2024 End: 08-20-2024 Non-patient / Non-visit Dr. Rob Vee MD -[facility] Work Phone: Start: 08-18-2024 End: 08-18-[address] Treasure Cardoso MD -[facility] Work Phone: Start: 08-18-2024 End: 08-18-[address] Rik Abdalla Work Phone: [facility] Work Phone: Start: 08-13-2024 End: 08-13-[address] Moriah Mcdonough DO -[facility] Work Phone: Start: 08-13-2024 End: 08-13-[address] Rik Abdalla Work Phone: [facility] Work Phone: Start: 08-13-2024 End: 08-13-2024 ambulatory Moriah Mcdonough Facility:[facility] Start: 08-11-2024 End: 08-11-2024 Emergency department patient visit Dr. Richard Burgos MD -Emergency Department Work Phone: Start: 08-09-2024 End: 08-09-2024 Emergency department patient visit Dr. Juan Lovell MD -Emergency Department Work Phone: Start: 07-28-2024 End: 07-28-2024 Emergency department patient visit Dr. Rik Abdalla Work Phone: -Emergency Department Work Phone: Start: 07-15-2024 End: 07-15-[address] Treasure Cardoso MD -[facility] Work Phone: Start: 07-15-2024 End: 07-15-2024 ambulatory Treasure Cardoso [facility] Start: 07-08-2024 End: 07-08-2024 Emergency department patient visit Dr. Rik Abdalla Work Phone: -Emergency Department Work Phone: Start: 07-08-2024 End: 07-09-2024 ambulatory DELANO MAYEN Facility:[facility] Start: 07-08-2024 End: 07-08-2024 Patient encounter procedure Kathleen Beck FIELD RESEARCH ASSOCIATE Work Phone: [facility] Comment on above: Right lower quadrant [...] 04-26-2024 Emergency department patient visit DELANO MAYEN [facility] Comment on above: Abscess of groin, ri ght (Primary Dx) Start: 04-01-2024 End: 04-01-2024 Emergency department patient visit Hemal Choe DO Work Phone: [facility] Comment on above: Acute left-sided low back pain with left-sided sciatica (Primary Dx) Start: 03-24-2024 End: 03-30-2024 Telephone encounter Akilah Balderrama PA-C Work Phone: [facility] Comment on above: Results Start: 03-16-2024 End: 03-16-2024 ambulatory DELANO MAYEN Facility:[facility] Start: 03-11-2024 End: 03-11-2024 Patient encounter procedure Akilah Balderrama PA-C Work Phone: [facility] [employer] Comment on above: Women's annual routi ne gynecological examination (Primary Dx); Encounter for screening for malignant neoplasm of vagina; Breast cancer screening by mammogram; Encounter for colorectal cancer screening; Screening for depression; Family history of breast cancer; Family history of colon cancer Start: 02-24-2024 End: 02-24-2024 Emergency department patient visit Jak Medellin MD Work Phone: [facility] Comment on above: Skin infection (Prim francis Dx) Start: 02-20-2024 End: 02-20-2024 Emergency department patient visit No Primary Care Physician Facility:[facility] Start: 01-29-2024 End: 01-31-2024 Evaluation and management of inpatient ASHLEY ZAMUDIOYOBANIDAYSIVielka Facility:[facility] Start: 01-22-2024 End: 01-23-2024 Emergency department patient visit [facility] Facility:[facility] Start: 01-20-2024 Emergency department patient visit Facility:[facility] Start: 01-03-2024 End: 01-03-2024 Emergency department patient visit Ed Physician Provider Facility:[facility] Start: 12-20-2023 End: 12-20-2023 Emergency department patient visit Karolina Yoder MD Work Phone: [facility] Comment on above: Abdominal pain (Pt c /o RUQ pain x 1 hr, x1 emesis and dizziness x 2 days) Start: 12-20-2023 Emergency department patient visit UNKNOWN PROVIDER Facility:[facility] Start: 10-03-2023 End: 10-03-2023 ambulatory [facility] Facility:[facility] Start: 10-03-2023 End: 10-03-2023 Patient encounter procedure Wendy Heaton PA-C Work Phone: [facility] Comment on above: Bronchitis (Primary Dx) Start: 10-02-2023 End: 10-02-2023 Emergency department patient visit SARAH PACHECO DO Facility:[id number] Start: 09-30-2023 End: 09-30-2023 ambulatory [facility] Facility:[facility] Start: 09-30-2023 End: 09-30-2023 Office outpatient visit 15 minutes Devante Gandhi DO Work Phone: [facility] Comment on above: Viral upper respirat ory tract infection (Primary Dx); Acute viral pharyngitis Start: 08-19-2023 ambulatory Kingsley Marques MD Work Phone: [facility] Comment on above: Cat scan with dye Start: 07-29-2023 End: 07-29-2023 [facility] Facility:[facility] Start: 07-29-2023 End: 07-29-2023 Office consultation new/estab patient 40 min Kingsley Marques MD Work Phone: Spine [facility] Comment on above: 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); History of lumbar surgery Start: 07-19-2023 End: 07-19-2023 Emergency department patient visit REX QUEZADA MD Facility:[id number] Start: 07-04-2023 End: 07-04-2023 [facility] Facility:[facility] Start: 07-02-2023 End: 07-02-2023 Emergency department patient visit 837 NO [facility] PHYSIC[facility] Facility:[id number] Start: 06-30-2023 Letter encounter [facility] Work Phone: Start: 06-21-2023 End: 06-21-2023 Emergency department patient visit 837 NO FAMILY PHYSICIAN Facility:[id number] Start: 06-16-2023 End: 06-16-2023 [facility] Facility:[facility] Start: 06-16-2023 End: 06-16-2023 Patient encounter procedure Jeremy Willard MD, PhD Work Phone: [facility] Comment on above: Eustachian tube diso rder, left (Primary Dx) Start: 06-07-2023 End: 06-07-2023 ambulatory [facility] Facility:[facility] Start: 06-07-2023 End: 06-07-2023 Office outpatient visit 15 minutes Moriah Malin MD Work Phone: [facility] Comment on above: Acute suppurative ot itis media of left ear without spontaneous rupture of tympanic membrane, recurrence not specified (Primary Dx); TMJ tenderness, left Start: 06-04-2023 End: 06-04-2023 Emergency department patient visit 837 ANCELMO [facility]ILY PHYSICIAN Facility:[id number] Start: 05-29-2023 End: 05-29-2023 ambulatory [facility] Facility:[facility] Start: 05-29-2023 End: 05-29-2023 Patient encounter procedure Wendy Heaton PA-C Work Phone: [facility] Comment on above: Acute otitis media, left (Primary Dx) Start: 05-28-2023 End: 05-28-2023 Unlisted evaluation and management service Moriah Malin MD Work Phone: [facility] Comment on above: OPENED IN ERROR (Halley shasha Dx) Start: 05-28-2023 ambulatory [facility] Facility:[facility] Start: 04-09-2023 End: 04-09-2023 [facility] Facility:[facility] Start: 03-24-2023 Letter encounter Blaire mahoney MD Work Phone: [facility] Start: 03-10-2023 End: 03-10-2023 [facility] Facility:[facility] Start: 11-22-2022 End: 11-22-2022 Emergency department patient visit PHYSICIAN ANCELMO [facility] Start: 10-31-2022 End: 10-31-2022 Emergency department patient visit JIMMIE KAUFMAN [facility] Start: 10-18-2022 End: 10-18-2022 Emergency department patient visit ALEXANDR RODRIGUEZ [facility] Start: 10-11-2022 End: 10-11-2022 Emergency department patient visit PHYSICIAN ANCELMO [facility] Start: 09-16-2022 End: 09-16-2022 Emergency department patient visit PHYSICIAN ANCELMO [facility] Start: 09-03-2022 End: 09-03-2022 Emergency department patient visit JAK KNAPP [facility] Start: 08-26-2022 End: 08-26-2022 Emergency department patient visit PHYSICIAN ANCELMO [facility] Start: 08-09-2022 End: 08-09-2022 Emergency department patient visit DENISA BUENROSTRO [facility] Start: 07-14-2022 End: 07-14-2022 Emergency department patient visit STEFANY GONZALEZ [facility] Start: 06-21-2022 Letter encounter Blaire mahoney MD Work Phone: [facility] Start: 05-28-2022 End: 05-28-2022 Emergency department patient visit STEWART BOURNE [facility] Start: 04-26-2022 End: 04-26-2022 Emergency department patient visit IRAJ DOWNING [facility] Start: 04-18-2022 End: 04-18-2022 Emergency department patient visit DUNIA SANTANA [facility] Start: 03-27-2022 Letter encounter Blaire mahoney MD Work Phone: [facility] Procedures Date Procedure Procedure Detail Performing Clinician Start: 08-30-2024 CT of pelvis with contrast Dr. Rik Marshall DO Work Phone: Start: 08-30-[address] Rik Abdalla Work Phone: Start: 08-30-2024 Urnls dip stick/tabl et reagent auto microscopy Dr. Rik Abdalla Work Phone: Start: 08-28-[address] Rik Abdalla Work Phone: Start: 08-28-2024 Computed tomography of abdomen and pelvis with intravenous contrast Dr. Rik Abdalla Work Phone: Start: 08-25-[address] Rik arroyo DO Work Phone: Start: 08-25-2024 Fibrinogen assay, quantitative Dr. Rik Marshall DO Work Phone: Start: 08-25-2024 Laparoscopic, Salpingo-oopherectomy (Bilateral) Dr. Rik Abdalla Work Phone: Start: 08-11-[address] [...] 06-04-2024 CT cervical spine without contrast Dr. iRk Marshall DO Work Phone: Start: 06-04-2024 CT of head without contrast Dr. Rik Marshall DO Work Phone: Start: 04-26-2024 Incision & drainage abscess simple/single Karla L Cecy CASTAÑEDA Work Phone: Start: 03-11-2024 Adult depression screening [...] Phone: Start: 12-20-2023 Assay of lipase Анна Hernán tic DO Work Phone: Start: 12-20-2023 Hepatic function panel Анна Tutic DO Work Phone: Start: 09-30-2023 STREP A MOLECULAR (POC) Devanteraegan Gandhi DO Work Phone: Start: 12-03-2018 Lipid [...] for Adults (1 - 1-dose 75+ series) [facility] Start: 03-11-2029 Screening for malignant neoplasm of cervix Cervical Cancer Screening [facility] Start: 01-28-2029 Lipid panel [facility] Start: 07-08-2028 Lipid panel Cholesterol [facility] Start: 01-27-2027 Diabetes Screening Diabetes Screening [facility] Start: 2025 Shingles (RZV) Vaccine (1 of 2) Shingles (RZV) Vaccine (1 of 2) [facility] Start: 2025 Zoster Vaccines (1 of 2) Zoster Vaccines (1 of 2) [facility] Start: 03-12-2025 End: 03-12-2025 Patient encounter procedure [facility] Comment on above: Annual Start: 03-11-2025 Depression Screening Depression Screening [facility] Start: 03-11-2025 HIV screening HIV Screening [facility] Comment on above: Postponed from 1993 (Declined at t his time) Start: 03-11-2025 Screening for malignant neoplasm of colon [facility] Start: 12-07-2024 COVID-19 Vaccine ( season) COVID-19 Vaccine () [facility] Start: 12-07-2024 Influenza vaccination Influenza Vaccine (#1) [facility] Start: 09-18-2024 [facility] Start: 08-30-2024 [facility] Start: 08-28-2024 [facility] Start: 08-26-2024 Following clinical pathway protocol [facility] Start: 08-26-2024 Patient discharge [facility] Start: 08-25-2024 Ambulation therapy management [facility] Start: 08-25-2024 Application of intermittent pneumatic compression device [facility] Start: 08-25-2024 Elevation of head of bed [facility] Start: 08-25-2024 Following clinical pathway protocol [facility] Start: 08-25-2024 Incentive spirometry [facility] Start: 08-25-2024 Measuring intake and output [facility] Start: 08-25-2024 Notification of physician [facility] Start: 08-25-2024 Oxygen therapy [facility] Start: 08-25-2024 Procedures relating to eating and drinking [facility] Start: 08-25-2024 Taking patient vital signs [facility] Start: 08-25-2024 [facility] Start: 08-25-2024 Introduction of urinary catheter [facility] Start: 08-25-2024 Admission procedure [facility] Start: 08-25-2024 Consultation [facility] Start: 08-19-2024 Electrocardiographic procedure [facility] Start: 08-11-2024 [facility] Start: 08-09-2024 [facility] Start: 07-28-2024 [facility] Start: 07-08-2024 [facility] Start: 06-07-2024 [facility] Start: 06-07-2024 Consultation [facility] Start: 06-04-2024 [facility] Start: 06-04-2024 [facility] Start: 01-07-2024 Influenza vaccination Influenza Vaccine (#1) [facility] Start: 12-08-2023 COVID-19 Vaccine ( season) COVID-19 Vaccine () [facility] Start: 12-08-2023 COVID-19 Vaccine ( season) COVID-19 Vaccine () [facility] Start: 12-08-2023 Covid-19 Vaccine ( season) Covid-19 Vaccine () [facility] Start: 12-08-2023 Influenza vaccination [facility] Start: 12-04-2023 Lipid panel Lipid Panel [facility] Start: 10-02-2023 End: 10-02-2023 Patient encounter procedure 10/02/2023 1:50 PM EDT Office Visit Spine [facility] [id number] [place] [address] Kingsley Marques MD [address] [place] [address] F/U [facility] Comment on above: F/U Start: 09-30-2023 End: 10-14-2023 SARS-CoV-2 (COVID-19) RNA [Presence] in Respiratory specimen by DEEPA with probe detection COVID NAAT, UPPER RESPIRATORY, ROUTINE Microbiology Routine Viral upper respiratory tract infection Expected: 09/30/2023, Expires: 10/14/2023 [facility] Work Phone: Comment on above: Expected: 09/30/2023, Expires: Start: 04-08-2023 Behavioral Health Screening Behavioral Health Screening [facility] Start: 04-08-2023 Depression Assessment Depression Assessment [facility] Start: 12-07-2022 Covid-19 Vaccine ( season) Covid-19 Vaccine () [facility] Start: 12-07-2022 Influenza vaccination Influenza Vaccine (#1) [facility] Start: 01-06-2022 Influenza vaccination Influenza Vaccine (#1) [facility] Start: 2020 Cholesterol [Mass/volume] in Serum or Plasma Cholesterol [facility] Start: 2020 Diabetes Screening Diabetes Screening [facility] Start: 2020 Lipid panel Lipid Screening [facility] Start: 2020 Screening for malignant neoplasm of colon [facility] Start: 2015 Screening for malignant neoplasm of breast [facility] Start: 2005 Screening for malignant neoplasm of cervix [facility] Start: 1996 Screening for malignant neoplasm of cervix [facility] Start: 1994 DTaP/Tdap/Td Vaccines (1 - Tdap) DTaP/Tdap/Td Vaccines (1 - Tdap) [facility] Start: 1994 Hepatitis A (HAV) Vaccine (optional start 19+ years) Hepatitis A (HAV) Vaccine (optional start 19+ years) [facility] Start: 1994 Hepatitis B vaccination Hepatitis B (HBV) Vaccine (1 of 3 - 19+ 3-dose series) [facility] Start: 1994 Hepatitis B Vaccine (1 of 3 - 19+ 3-dose series) Hepatitis B Vaccine (1 of 3 - 19+ 3-dose series) [facility] Start: 1994 Hepatitis B Vaccines (1 of 3 - 19+ 3-dose series) Hepatitis B Vaccines (1 of 3 - 19+ 3-dose series) [facility] Start: 1994 Pneumococcal vaccination [facility] Start: 1994 Pneumococcal Vaccine: Pediatrics (0 to 5 Years) and At-Risk Patients (6 to 49 Years) (1 of 2 - PCV) Pneumococcal Vaccine: Pediatrics (0 to 5 Years) and At-Risk Patients (6 to 49 Years) (1 of 2 - PCV) [facility] Start: 1994 Urine microalbumin profile DTaP,Tdap,Td Vaccine (1 - Tdap) [facility] Start: 1993 Anxiety Screening Anxiety Screening [facility] Start: 1993 Hepatitis C screening [facility] Start: 1993 HIV screening HIV Screening [facility] Start: 1993 Tetanus + diphtheria + acellular pertussis vaccine (product) Tdap Booster [facility] Start: 1990 HIV screening HIV Test [facility] Start: 1987 Depression Screening Depression Screening [facility] Start: 1981 Pneumococcal vaccination [facility] Start: 1981 Pneumococcal Vaccine: Pediatrics (0 to 5 Years) and At-Risk Patients (6 to 64 Years) (1 of 2 - PCV) Pneumococcal Vaccine: Pediatrics (0 to 5 Years) and At-Risk Patients (6 to 64 Years) (1 of 2 - PCV) [facility]: 1976 MMR Vaccines (1 of 1 - Standard series) MMR Vaccines (1 of 1 - Standard series) [facility] Start: 1975 COVID-19 Vaccine (#1) COVID-19 Vaccine (#1) [facility] Start: 1975 Hepatitis B vaccination Hepatitis B (HBV) Vaccine (1 of 3 - 3-dose series) [facility] Start: 1975 Hepatitis B Vaccine (1 of 3 - 3-dose series) Hepatitis B Vaccine (1 of 3 - 3-dose series) [facility] Start: 1975 HIV screening HIV Screening [facility] Start: 1975 Lipid panel Lipid Panel [facility] Start: 1975 Screening for malignant neoplasm of colon [facility] Bacteria identified in Urine by Culture [facility] Work Phone: Comment on above: When Specimen Available/Needed for 1 Occ urrences starting 12/20/2023 DBT Breast - bilater al screening [facility] Radiology Routine Breast cancer screening by mammogram 1 Occurrences starting 03/11/2024 [facility] Comment on above: 1 Occurrences starting 03/11/2024 PAP/HPV MRNA E6/E7 R FX HPV 16,18/45 PAP/HPV MRNA E6/E7 RFX HPV 16,18/45 Lab Routine Encounter for screening for malignant neoplasm of vagina Ordered: 03/11/2024 [facility] Work Phone: Comment on above: Ordered: 03/11/2024 Patient Education [facility] Work Phone: Patient referral [facility] Work Phone: US Pelvis [facility] End: 08-27-2024 XR Lumbar spine AP and Lateral XR LUMBAR LIMITED 2V AP/LAT Radiology Routine Chronic left-sided low back pain with left-sided sciatica 1 Occurrences starting 07/29/2023 until 08/27/2024 [facility] Work Phone: Comment on above: 1 Occurrences starting 07/29/2023 until 08/27/2024 [facility] Immunizations Immunization Date Immunization Notes Care Provider Tati huang 07-18-2021 COVID-19 original vaccine, full dose, monovalent (MODERNA) Moriah Malin MD Work Phone: [facility] 09-23-2020 COVID-19 original vaccine, full dose, monovalent (MODERNA) Moriah Malin MD Work Phone: [facility] Payers Date Payer Category Payer Unknown [id number] 2024 Self-pay 2023 [facility] [id number] 2023 Commercial [facility] [id number] 2023 Medicaid [id number] 2023 Private Health Insurance [id number] .[id number] 2023 Unknown [id number] 2021 Unknown [id number] 2019 Unknown [id number]. 1.13.56.2. [id number] 1975 Unknown [id number] 2.16.840.1.386242.3.579.2 .902 1975 Unknown [id number] 2.16.840.1.649057.3.579.2 .902 1975 Unknown [id number] 2.16.840.1.636957.3.579.2 .159 1975 Unknown [id number] 2.16.840.1.135402.3.579.2 .159 1975 Unknown [id number] 2.16.840.1.356482.3.579.2 .159 1975 Unknown [id number] 2.16.840.1.285734.3.579.2 .159 1975 Unknown [id number] 2.16.840.1.886126.3.579.2 .159 1975 Unknown [id number] 2.16.840.1.612188.3.579.2 .732 1975 Unknown [id number] 2.16.840.1.285593.3.579.2 .732 1975 Unknown [id number] 2.16.840.1.107149.3.579.2 .732 1975 Unknown [id number] 2.16.840.1.926879.3.579.2 .732 Unknown [id number] 2.16.840.1.240717.3.579.2 .462 Unknown [id number] 2.16.840.1.722477.3.579.2 .462 Unknown [id number] 2.16.840.1.894877.3.579.2 .462 Unknown [id number] 2.16.840.1.294480.3.579.2 .462 Unknown [id number] 2.16.840.1.317925.3.579.2 .462 Unknown [id number] 2.16.840.1.066649.3.579.2 .462 Unknown [id number] 2.16.840.1.395223.3.579.2 .462 Unknown [id number] 2.16840.1.688664.3.579.2 .462 Unknown [id number] 2.840.1.447492.3.579.2 .462 Unknown [id number] 2.840.1.387175.3.579.2 .462 Unknown [id number] 2.840.1.359880.3.579.2 .462 Unknown [id number] 2.840.1.023563.3.579.2 .462 Unknown [id number] 2.840.1.065420.3.579.2 .462 Unknown [id number] 2.840.1.366532.3.579.2 .462 Unknown [id number] 2.840.1.193372.3.579.2 .462 Unknown [id number] 2.840.1.922154.3.579.2 .462 Unknown [id number] 2.840.1.533515.3.579.2 .462 Unknown [id number] 2.840.1.560229.3.579.2 .462 Unknown [id number] 2.840.1.010254.3.579.2 .462 Unknown [id number] 2.16840.1.238273.3.579.2 .462 Unknown [id number] 2.16840.1.179552.3.579.2 .462 Unknown [id number] 2.840.1.530650.3.579.2 .462 Social History Date Type Detail Facility Start: 01-01-2020 End: 01-29-2024 Tobacco smoking status NHIS Smokes tobacco [facility] Start: 01-01-2020 End: 01-29-2024 Tobacco use and exposure Smokeless [facility] Start: 1975 [facility] Start: 01-06-2020 Gender identity Identifies as female gender (finding) [facility] Start: 01-06-2020 Sexual orientation Heterosexual (fin ding) [facility] History of tobacco use Cigarette Smoker [facility] Start: 04-09-2023 End: 01-29-2024 History of Social function [facility] Start: 04-09-2023 End: 01-29-2024 Tobacco use panel [facility] Start: 1975 Sex Assigned At Not on file C [facility] History of tobacco use Passive smoker [facility] Start: 10-23-2014 Adult Depression Screening Assessment 0 [facility] Start: 02-24-2024 End: 12-11-2024 Alcoholic beverage intake Ex-drinker (finding) [facility] Start: 12-26-2019 End: 11-06-2021 Sex Female (finding) [facility] How often to you hav e a drink containing alcohol? Never [facility] NEGATED: Highlighted row Not [facility] Medical Equipment Procedure Code Equipment Code Equipment Origin al Text Equipment Identifier Dates Laparoscopy, diagnostic DRESSING,FIBRILLAR 1X2 1960 FDA Start: [...] Facility 08-26-2024 Functional status [facility] Work Phone: Mental Status Date Assessment Result Facility 08-28-2024 Cognitive function Level Of Cons ciousness Awake;Alert;Appropriate;Follow s Commands [facility] Work Phone: 08-26-2024 Cognitive function Level Of Cons ciousness Awake;Alert;Appropriate;Follow s Commands [facility] Work Phone: 08-25-2024 Cognitive function Voice/Name [facility] Work Phone: 07-28-2024 Cognitive function Level Of Cons ciousness Awake;Alert;Appropriate;Follow s Commands [facility] Work Phone: 06-04-2024 Cognitive function Level Of Cons ciousness Awake;Alert;Appropriate [facility] Work Phone: Clinical Notes 03-10-2023 to 01-21-2025 Patient InstructionsPraisler-Blake Spicer APRN.FIELD RESEARCH ASSOCIATE - 12/11/2024 2:07 PM EDTTelephone Encounter - Jo-Ann Park APRN.CNP - 11/16/2024 2:21 PM EDTPatient Instructions Note Date & Type Note Facility 01-21-2025 Note HNO ID: [id number] Author: JEFFRY GERONIMO APRN.CNP Service: ? Author Type: Nurse Practitioner Type: Progress Notes Filed: 01/21/2025 11:54 Note Text: URGENT CARE DINH Alvarado is a 49 year old female. Patient presents with: Dental Problem: R upper front x2 days Dental Problem The patient is a 49-year-old female presenting for evaluation of dental pain. Dental Pain: - Pain localized to the lower teeth, radiating to the face. - Pain began after partial tooth extraction in August. - Taking ibuprofen with minimal relief; helps with swelling. - Has not seen a dentist in 2 years. - Allergies: Flagyl. - Recent history of smoking cessation. Review of Systems Ears/Nose/Mouth/Throat: (+) tooth pain, (+) facial swelling (-) fever PAST MEDICAL HISTORY Diagnosis Date - Abnormal [...] FALLOPIAN TUBE 2004 - S BALLOON,UTERINE ABLATION 69075 2005 - VAGINAL HYSTERECTOMY 2013 ovaries remain ALLERGIES Flagyl [Metronidazole], Ketorolac Tromethamine, and Nalbuphine MEDICATIONS - clonazePAM (KLONOPIN) 0.5 mg tablet Take 0.5 mg by mouth once daily as needed. - ARIPiprazole (ABILIFY) 15 mg tablet Take 20 mg by mouth once daily. - amoxicillin (AMOXIL) 875 mg tablet Take 1 tablet by mouth two times a day for 7 days. - doxycycline hyclate (VIBRAMYCIN) 100 mg capsule Take 1 capsule by mouth two times a day. (Patient not taking: Reported on 01/21/2025) - doxycycline hyclate (VIBRAMYCIN) 100 mg capsule Take 1 capsule by mouth two times a day. (Patient not taking: Reported on 01/21/2025) - QUEtiapine (SEROQUEL) 25 mg tablet Take [...] - Colon Cancer Other 47 SOCIAL HISTORY[1] Objective BP 96/61 Pulse 69 Temp 36.4 ?C (97.6 ?F) Resp 18 Wt 54.2 kg (119 lb 7.8 oz) SpO2 96% BMI 20.51 kg/m? Physical Exam Constitutional: General: She is not in acute distress. Appearance: Normal appearance. She is normal weight. She is not ill-appearing or toxic-appearing. HENT: Head: Normocephalic and atraumatic. Jaw: No trismus. Right Ear: Tympanic membrane, ear canal and external ear normal. Left Ear: Tympanic membrane, ear canal and external ear normal. Nose: Congestion and rhinorrhea present. Right Sinus: Maxillary sinus tenderness and frontal sinus tenderness present. Left Sinus: No maxillary sinus tenderness or frontal sinus tenderness. Mouth/Throat: Dentition: Abnormal dentition. Dental tenderness and gingival swelling present. No dental abscesses or gum lesions. Tongue: No lesions. Tongue does not deviate from midline. Palate: No mass and lesions. Pharynx: Oropharynx is clear. Uvula midline. Eyes: Conjunctiva/sclera: Conjunctivae normal. Pupils: Pupils are equal, round, and reactive to light. Cardiovascular: Rate and Rhythm: Normal rate and regular rhythm. Pulses: Normal pulses. Pulmonary: Effort: Pulmonary effort is normal. Breath sounds: Normal breath sounds. Lymphadenopathy: Cervical: Cervical adenopathy present. Neurological: Mental Status: She is alert. { 1. Tooth infection (K04.7) - Ongoing pain and swelling since partial tooth extraction in August; lymphadenopathy noted on exam. - Start penicillin-based antibiotic. - Advised use of naproxen with food for pain management; explained that antibiotics will address infection-related pain. - Provided list of dental clinics for follow-up care. No signs of ludwigs angina, deep neck tissue infection or mastoiditis. and Recording using [employer] software for draft documentation of the visit was discussed with the patient/authorized access representative; all questions welcomed and answered. Patient/authorized access representative agreed to proceed History and Record Review External record(s) reviewed: prior outpatient record. Findings from review of outpatient records: Previous medical history [1] Social History Tobacco Use - Smoking status: Every Day Current packs/day: 1.00 Types: Cigarettes Passive exposure: Current - Smokeless tobacco: Never Vaping Use - Vaping status: (more content not included)... [facility] 12-11-2024 Instructions Blake Falcon APRN.RENEE - 12/11/2024 2:08 PM EDT 1. Facial [...] the prescription has been sent to [facility]. You may continue your usual dairy intake [...] contact the office. documented in this encounter [facility] 12-11-2024 Note HNO ID: [id number] Author: BLAKE FALCON APRN.RENEE Service: ? Author Type: Nurse Practitioner [...] FALLOPIAN TUBE 2004 - S BALLOON,UTERINE ABLATION 05262 2005 - VAGINAL HYSTERECTOMY 2013 ovaries remain [...] Discussed expected course of illness Blake Falcon APRN.FIELD RESEARCH ASSOCIATE and Recording using [employer] software for draft documentation of the visit was discussed with the patient/authorized access representative; all questi (more content not included)... [facility] 12-11-2024 History of Presen t illness [...] LIGATE FALLOPIAN TUBE 2004 S BALLOON,UTERINE ABLATION 58378 2005 VAGINAL HYSTERECTOMY 2012 ovaries remain ALLERGIES [...] Discussed expected course of illness Blake Falcon APRN.FIELD RESEARCH ASSOCIATE and Recording using [employer] software for draft documentation of the visit was discussed with the patient/authorized access representative; all questions welcomed and answered. Patient/authorized access representative agreed to proceed Disposition The patient was discharged. Procedures [1] Social History Tobacco Use Smoking status: Every Day Current packs/day: 1.00 Types: Cigarettes Passive exposure: Current Smokeless tobacco: Never Vaping Use Vaping status: Never Used Substance Use Topics Alcohol use: Not Currently Drug use: Never documented in this encounter [facility] 11-16-2024 Telephone encounter Note Medicine sent to [facility] Patient notified [facility] 11-16-2024 Miscellaneous Notes Medicine sent to [facility] Patient notified Patient calls to request doxycycline be sent to [facility]. Per patient, Sent to the wrong pharmacy previously. Pended. Please review and advise, Zeina Eller RN documented in this encounter [facility] 11-16-2024 Telephone encounter Note Patient calls to request doxycycline be sent to [facility]. Per patient, Sent to the wrong pharmacy previously. Pended. Please review and adviseZeina RN [facility] 11-16-2024 Instructions Jo-Ann Park APRN.CNP - 11/16/2024 1:22 PM EDT - Take doxycycline as prescribed: one tablet by mouth twice daily for 7 days. Start tonight after you eat. The prescription has been sent to [facility] on . - While taking doxycycline, avoid direct sun exposure and wear sunscreen; regular use of sunscreen is recommended. - You may still go for your walk today and then begin the antibiotic afterward. - A work-note documenting your absence on Saturday has been provided for your employer. documented in this encounter [facility] 11-16-2024 Note HNO ID: [id number] Author: JO-ANN PARK APRN.CNP Service: ? Author Type: Nurse Practitioner Type: Progress Notes Filed: 11/16/2024 13:23 Note Text: URGENT CARE DINH Alvarado is a 49 year old female. Patient presents with: Trauma: Insect bite on left knee, painful Trauma Left Knee Bite: - Onset: Saturday while camping at near [facility]. - [place] a burn and sting through long pants [...] LIGATE FALLOPIAN TUBE 2004 S BALLOON,UTERINE ABLATION 29585 2005 VAGINAL HYSTERECTOMY 2013 ovaries remain ALLERGIES Flagyl [...] Insect bite of left knee, subsequent encounter (S83.400I) - Acute insect bite on left knee with increasing erythema since Saturday; pain worsened with ambulation. - Start doxycycline 1 tablet PO BID for 7 days. - Educated patient on [employer] (more content not included)... [facility] 11-16-2024 History of Presen t illness Narrative URGENT CARE DINH Isacc Alvarado is a 49 year old female. Patient presents with: Trauma: Insect bite on left knee, painful Trauma Left Knee Bite: - Onset: Saturday while camping at near [facility]. - [place] a burn and sting through long pants [...] LIGATE FALLOPIAN TUBE 2004 S BALLOON,UTERINE ABLATION 20218 2005 VAGINAL HYSTERECTOMY 2013 ovaries remain ALLERGIES Flagyl [...] Insect bite of left knee, subsequent encounter (C72.762F) - Acute insect bite on left knee with increasing erythema since Saturday; pain worsened with ambulation. - Start doxycycline 1 tablet PO BID for 7 days. - Educated patient on sun avoidance and use of sunscreen while taking doxycycline. Follow up with PCP for continued symptoms. and Recording using [employer] software for draft documentation of the visit was discussed with the patient/authorized access representative; all questions welcomed and answered. Patient/authorized access representative agreed to proceed MDM Procedures [1] [...] date: Ovarian cyst No date: Pulmonary embolism ([facility]) Comment: after back surgery [2] Review of [...] Drug use: Never documented in this encounter [facility] 11-14-2024 Note HNO ID: [id number] Author: GIDEON ACE APRN.FIELD RESEARCH ASSOCIATE Service: ? Author Type: Nurse Practitioner Type: [...] Insect bite of left knee, initial encounter (S80.781A) - Acute insect bite with localized inflammatory [...] to seek further care. and Recording using [employer] software for draft documentation of the visit was discussed with the patient/authorized access representative; all questions welcomed and answered. Patient/authorized access representative agreed to proceed MDM Procedures [facility] 11-14-2024 History of Presen t illness Narrative URGENT CARE DINH Isacc Lm Alvarado is a 49 year old [...] Insect bite of left knee, initial encounter (S80.987A) - Acute insect bite with localized inflammatory [...] to seek further care. and Recording using [employer] software for draft documentation of the visit was discussed with the patient/authorized access representative; all questions welcomed and answered. Patient/authorized access representative agreed to proceed MDM Procedures documented in this encounter [facility] 08-30-2024 Radiology Diagnostic study note [facility] Imaging Services [address] [place] [address] Pelvis WITH IV Contrast MR#: [id number] Acct: [id number] Name: LM ALVARADO Rep #: [id number] : 1975 F 49 From: Pet er Peer DO PCP: Care Physician,No Primary Status: REG ER Study:Pelvis WITH IV Contrast Date of Exam: 08/30/24 Exam# [id number] Ordering Dr: Tray Emery DO PROCEDURE: PELVIS [...] fluid deep in the pelvis [facility] CC: Dr. Love Emery DO; No Primary Care Physician ~ Transportation Program Director: Signed [facility] 08-26-2024 Consult note [facility] 08-26-2024 Consult note [facility] 08-26-2024 Consult note [facility] 08-26-2024 Consult note [facility] 08-26-2024 Progress note Note Date/Time August 26, 2024 8:07am [facility] Medical Records Department [address] [place] [address] Progress Note - OBGYN 08/26/24804 MR#: [id number] Acct: [id number] Name: LM ALVARADO Rep #:[id number] : 1975 49 From: Treasure madsen MD PCP: Care Physician,No Primary Status :ADM IN [place] [facility] DG859-0 Subjective Subjective Patient doing better still having [...] 93.2 H, Lymph % (Auto) 5.0 L, Cascade % (Auto) 0.9, Eos % (Auto) 0.0, [...] Cosigner Signature (if applicable): CC: ~ Signed [facility] Work Phone: 1(962) 119-705105-21-2025 Progress note [facility] Medical Records Department [address] [place] [address] Progress Note - OBGYN 08/26/24 0805 MR#: [id number] Acct: [id number] Name: LM ALVARADO Rep #:[id number] : 1975 49 From: Treasure madsen MD PCP: Care Physician,No Primary Status :ADM IN Location: MS3 GQ211-9 Subjective Subjective Patient doing better still having [...] 93.2 H, Lymph % (Auto) 5.0 L, Cascade % (Auto) 0.9, Eos % (Auto) 0.0, [...] Cosigner Signature (if applicable): CC: ~ Signed [facility]05-20-2025 Consult note Author Carmelo Mart [facility] Note Date/Time August 26, 2024 1:33p m [facility] Medical Records Department [address] [place] [address] Anesthesia Postop Eval II 08/25/242029 MR#: [id number] Acct: [id number] Name: LM ALVARADO Rep #:[id number] : 1975 49 From: Carmelo Mart MD PCP: Care Physician,No Primary Status :REG SDC Y Race: C Location: [place] [address] Anesthesia Postop Eval I Sum Postop Eval [...] MD Cosigner Signature: Date CC: ~ Signed [facility] Work Phone: 1(357) 400-119505-20-2025 Consult note Author Carmelo Mart [facility] Note Date/Time August 25, 2024 8:29p [facility] Medical Records Department [address] [place] [address] Anesthesia Postop Eval I 08/25/242027 MR#: [id number] Acct: [id number] Name: LM ALVARADO Rep #:[id number] : 1975 49 From: Carmelo Mart MD PCP: Care Physician,No Primary Status :REG SD Y Race: C Location: [place] [address] Anesthesia: Postop Eval I Current Vital Signs [...] MD > Date _ Carmelo Mart MD Cosign Signature: Date CC: ~ Signed [facility] Work Phone: 1(118) 840-565505-20-2025 Consult note Author Carmelo [facility] Note Date/Time August 25, 2024 8:28p [facility] Medical Records Department [address] [place] [address] Pre-Anesthesia Evaluation 08/25/24 1820 MR#: [id number] Acct: [id number] Name: LM ALVARADO Rep #:[id number] : 1975 49 From: Carmelo Mart MD PCP: Care Physician,No Primary Status :[facility] Y Race: C Location: [place] [address] ASA Classification* ASA Classification ASA Classification: 2 [...] CBC WBC 20.3 K/mm3 (4.4-11.0) H 08/25/24 17: 5 RBC 4.21 M/mm3 (4.2-5.4) 08/25/24 17:20 [...] abdominal wall. Anesthesia History Anesthesia History - hardness tester: Anesthesia History - hardness tester Hx Hospitalization No 08/19/24 10:23 Any Problems [...] take am of surgery PONV PONV - hardness tester: PONV - hardness tester Female Yes 08/19/24 10:23 HX of Motion [...] 08/25/24 12:46 Respiratory Assessment Respiratory Assessment - hardness tester: Respiratory Tract Infection Hx - hardness tester Hx Respiratory Tract Infection No 08/19/24 10:23 STOP Sleep Apnea STOP Sleep Apnea - hardness tester: STOP Sleep Apnea - hardness tester Hx Hypertension No: hypotension 08/19/24 10:23 Hx [...] Tobacco Use History Tobacco Use History - hardness tester: Tobacco Use History - hardness tester Tobacco Use Smoking Status Current every day smoker 08/19/24 10:23 Hx Tobacco Use Yes 08/19/24 10:23 Years Smoking Packs Smoked per Day 1 08/19/24 10:23 Smoking Cessation Date was within the last 15 years Hx Smoking Cessation Date Hx Smoking Cessation Counseling Hematologic Medial History Hematologic Hx - hardness tester: 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 Smoking Status: Current every day smoker tobacco type: cigarettes and e- cigarettes do you feel safe at home: Yes additional social history: Boyfriend - Terence Review of Systems (Anesthesia) ROS Narrative System reviewed and no additional complaints, except as documented. 08/25/242027 <Electronically signed by Carmelo Mart MD > Date _ Carmelo Diez Signature: Date CC: ~ Signed [facility] Work Phone: 1(615) 797-286105-20-2025 Procedure note [facility] Medical Records Department [address] [place] [address] Operative Report 08/25/242036 MR#: [id number] Acct: [id number] Name: LM ALVARADO Rep #:[id number] : 1975 49 From: Treasure madsen MD PCP: Care Physician,No Primary Status :[facility] Location: [place] [address] Problems Associated Problem List Diagnoses (1) Abdominal wall hematoma: Procedures Urinary/Genital 52xxx-59xxx: Other Procedure See Report (attention hoang patient taken back to OR same day and incisional exploration unsure what code to use) Operative Report (Standard) Operative Information Date of Procedure: 08/25/24 Pre-Operative Diagnosis: abdominal wall hematoma Post-Operative Diagnosis: same Surgery/Procedure Performed: incisional abdominal wall exploration of abdominal wall hematoma sales negotiator: Yes Industrial Roofer: Jak Casas Tasks completed by school office assistant: Opening & closing, Altering tissue, Hemostasis:Clamp, [...] involvement. No major vessel injury was suspected. [id number] suture of silk tie was placed in [...] Cardoso MD; No Primary Care Physician~ Signed [facility]05-20-2025 Consult note [facility] Medical Records Department [address] [place] [address] Anesthesia Postop Eval I 08/25/242027 MR#: [id number] Acct: [id number] Name: LM ALVARADO Rep #:[id number] : 1975 49 From: Carmelo Mart MD PCP: Care Physician,No Primary Status :REG [facility] Y Race: C Location: [place] [address] Anesthesia: Postop Eval I Current Vital Signs [...] 08/25/242028 > Date _ Carmelo Mart MD [facility] Signature: Date CC: ~ Signed [facility]05-20-2025 Consult note [facility] Medical Records Department [address] [place] [address] Pre-Anesthesia Evaluation 08/25/24 1820 MR#: [id number] Acct: [id number] Name: LM ALVARADO Rep #:[id number] : 1975 49 From: Carmelo Mart MD PCP: Care Physician,No Primary Status :[facility] Y Race: C Location: [place] [address] ASA Classification* ASA Classification ASA Classification: 2 [...] CBC WBC 20.3 K/mm3 (4.4-11.0) H 08/25/24 17: 5 RBC 4.21 M/mm3 (4.2-5.4) 08/25/24 17:20 [...] abdominal wall. Anesthesia History Anesthesia History - hardness tester: Anesthesia History - hardness tester Hx Hospitalization No 08/19/24 10:23 Any Problems [...] take am of surgery PONV PONV - hardness tester: PONV - hardness tester Female Yes 08/19/24 10:23 HX of Motion [...] 08/25/24 12:46 Respiratory Assessment Respiratory Assessment - hardness tester: Respiratory Tract Infection Hx - hardness tester Hx Respiratory Tract Infection No 08/19/24 10:23 STOP Sleep Apnea STOP Sleep Apnea - hardness tester: STOP Sleep Apnea - hardness tester Hx Hypertension No: hypotension 08/19/24 10:23 Hx [...] Tobacco Use History Tobacco Use History - hardness tester: Tobacco Use History - hardness tester Tobacco Use Smoking Status Current every day smoker 08/19/24 10:23 Hx Tobacco Use Yes 08/19/24 10:23 Years Smoking Packs Smoked per Day 1 08/19/24 10:23 Smoking Cessation Date was within the last 15 years Hx Smoking Cessation Date Hx Smoking Cessation Counseling Hematologic Medial History Hematologic Hx - hardness tester: 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 Smoking Status: Current every day smoker tobacco type: cigarettes and e-cigarettes do you feel safe at home: Yes additional social history: Boyfriend - Terence Review of Systems (Anesthesia) ROS Narrative System reviewed and no additional complaints, except as documented. 08/25/242027 > Date _ Carmelo Mart MD Cosigner Signature: Date CC: ~ Signed [facility]05-20-2025 Progress note Author Treasure Cardoso [facility] Note Date/Time August 25, 2024 6:02p [facility] Medical Records Department [address] [place] [address] Progress Note - OBGYN 08/25/24 1758 MR#: [id number] Acct: [id number] Name: LM ALVARADO Rep #:[id number] : 1975 49 From: Treasure madsen MD PCP: Care Physician,No Primary Status :REG [facility] Location: [place]3 [id number] Subjective Subjective Patient evaluated for increased right [...] Cosigner Signature (if applicable): CC: ~ Signed [facility] Work Phone: 1(362) 258-382905-20-2025 Consult note Author Carmelo Mart [facility] Note Date/Time August 26, 2024 1:33p m [facility] Medical Records Department [address] [place] [address] Anesthesia Postop Eval II 08/25/241649 MR#: [id number] Acct: [id number] Name: LM ALVARADO Rep #:[id number] : 1975 49 From: Carmelo Mart MD PCP: Care Physician,No Primary Status :REG SDC Y Race: C Location: [place] [address] Anesthesia Postop Eval I Sum Postop Eval Completion status Anesthesia document: Postop Eval 1 completed: Yes Anesthesia Postop Eval I Summary Anesthesia Postop Eval I Summary: Anesthesia Postop Eval I: Assessment Summary Airway patent Yes 08/25/24 15:41 MOLDER PUNCH.GDOTT Spontaneous unlabored Yes 08/25/24 15:41 MOLDER PUNCH.GDOTT respirations Mental status Awake,Calm 08/25/24 15:41 MOLDER PUNCH.GDOTT nausea No 08/25/24 15:41 MOLDER PUNCH.GDOTT Vomiting No 08/25/24 15:41 MOLDER PUNCH.GDOTT Anesthesia Postop Eval I: Fluid Summary Crystalloid volume administer 1,000 08/25/24 15:41 MOLDER PUNCH.GDOTT (ml) Colloids volume administered ( ml) Blood Product volume administered (ml) Total IV fluid infused 1,000 08/25/24 15:41 MOLDER PUNCH.GDOTT Anesthesia Postop Eval I: Summary Notes Anesthesia Complication No 08/25/24 15:41 MOLDER PUNCH.GDOTT Anesthesia Complication Comment: Post-operative progress note Anesthesia: Postop Eval II Evaluation Mental status: Awake Pain Level: 0 nausea: No Vomiting: No 08/25/241649 <Electronically signed by Carmelo Mart MD > Date _ Carmelo Mart MD Cosigner Signature: Date CC: ~ Signed [facility] Work Phone: 1(211) 433-657805-20-2025 Discharge summary Author Treasure Cardoso [facility] Note Date/Time August 25, 2024 4:31p m [facility] Medical Records Department [address] [place] [address] Instructions for Home/Discharge Instructions 08/25/24 0747 MR#: [id number] Acct: [id number] Name: LM ALVARADO Rep #:[id number] : 1975 49 From: Treasure madsen MD [...] Provider: Care Physician,No Primary Instructions Print Language: Azerbaijani Discharge Orders/Prescriptions Prescriptions: New naproxen 500 mg [...] CC: No Primary Care Physician ~ Signed [facility] Work Phone: 1(887) 509-254305-20-2025 Progress note [facility] Medical Records Department [address] [place] [address] Progress Note - OBGYN 08/25/24 1758 MR#: [id number] Acct: [id number] Name: LM ALVARADO Rep #:[id number] : 1975 49 From: Treasure madsen MD PCP: Care Physician,No Primary Status :[facility] Location: CT3 UD900-1 Subjective Subjective Patient evaluated for increased right [...] Cosigner Signature (if applicable): CC: ~ Signed [facility]05-20-2025 Consult note Author Bisi Sanford [facility] Note Date/Time August 26, 2024 1:33p [facility] Medical Records Department [address] [place] [address] Anesthesia Postop Eval I 08/25/24 154 MR#: [id number] Acct: [id number] Name: LM ALVARADO Rep #:[id number] : 1975 49 From: Bisi Sanford PCP: Care Physician,No Primary Status :[facility] Y Race: C Location: [place] [address] Anesthesia: Postop Eval I Current Vital Signs [...] Anesthesia document: Postop Eval 1 completed: Yes 08/25/241540 <Electronically signed by Bisi Sanford > Date _ Bisi Sanford Cosigner Signature: Date CC: ~ Signed [facility] Work Phone: 1(103) 516-724405-20-2025 Discharge summary [facility] Medical Records Department [address] [place] [address] Instructions for Home/Discharge Instructions 08/25/24 0747 MR#: [id number] Acct: [id number] Name: LM ALVARADO Rep #:[id number] : 1975 49 From: Treasure madsen MD [...] Provider: Care Physician,No Primary Instructions Print Language: Azerbaijani Discharge Orders/Prescriptions Prescriptions: New naproxen 500 mg [...] CC: No Primary Care Physician ~ Signed [facility]05-20-2025 History and physical note Author Treasure Cardoso [facility] Note Date/Time August 25, 2024 2:18p [facility] Medical Records Department [address] [place] [address] History & Physical Exam 08/25/24 0747 MR#: [id number] Acct: [id number] Name: LM ALVARADO Rep #:[id number] : 1975 49 From: Treasure madsen MD PCP: Care Physician,No Primary Status :[facility] Location: [place] [address] History and Physical Date of Admission: 08/25/24 Intake Vital Signs 08/14/2507:22 08/18/2509:02 08/18/2509:02 Height 5 ft 4 in 5 ft 4 in 5 ft 4 in Weight: 119 lb BMI 20.4 BP 111/73 Intake Visit Reasons: Laparoscopic Oophorectomy Supervisor Metalizing Required: No Is patient in pain?: Yes [...] 3 current occupational status: employed current occupation: [employer] Smoking Status: Current every day smoker tobacco [...] to work. She is living in a correction at present. She states she wants to [...] comfortable and no acute distress Orientation: alert HENNY Head: normal to inspection and normocephalic Ears: [...] Level of Care Code No Charge Diagnoses Mitteporshachmerz N94.0 Pelvic pain R10.2 Hemorrhagic cyst of [...] MD; No Primary Care Physician ~* Signed [facility] Work Phone: 1(305) 301-109205-20-2025 Procedure note [facility] Medical Records Department [address] [place] [address] Operative Report 08/25/24 1515 MR#: [id number] Acct: [id number] Name: LM ALVARADO Rep #:[id number] : 1975 49 From: Treasure madsen MD PCP: Care Physician,No Primary Status :[facility] Location: [place] [address] Problems Associated Problem List Diagnoses (1) Pelvic pain: (2) Hemorrhagic cyst of ovary: (3) Datemarii: Operative Report (Standard) Operative Information Date of Procedure: 08/25/24 Pre-Operative Diagnosis: see above Post-Operative Diagnosis: same Surgery/Procedure Performed: laparoscopic right salpingoophorectomy left salpingectomy ovarian cystectomy sales negotiator: Yes Industrial Roofer: Juan Mendenhall Tasks completed by school office assistant: Opening, Closing, Insert Trochanter and Retracting [...] Cardoso MD; No Primary Care Physician~ Signed [facility]05-20-2025 Consult note Author Carmelo Mart [facility] Note Date/Time August 25, 2024 12:38 pm [facility] Medical Records Department [address] [place] [address] Pre-Anesthesia Evaluation 08/25/24 1236 MR#: [id number] Acct: [id number] Name: LM ALVARADO Rep #:[id number] : 1975 49 From: Carmelo Mart MD PCP: Care Physician,No Primary Status :[facility] Y Race: C Location: [facility] ASA Classification* ASA Classification ASA Classification: 2 [...] Left Oophorectomy Anesthesia History Anesthesia History - hardness tester: Anesthesia History - hardness tester Hx Hospitalization No 08/19/24 10:23 Any Problems [...] take am of surgery PONV PONV - hardness tester: PONV - hardness tester Female Yes 08/19/24 10:23 HX of Motion [...] 08/18/24 10:02 Respiratory Assessment Respiratory Assessment - hardness tester: Respiratory Tract Infection Hx - hardness tester Hx Respiratory Tract Infection No 08/19/24 10:23 STOP Sleep Apnea STOP Sleep Apnea - hardness tester: STOP Sleep Apnea - hardness tester Hx Hypertension No: hypotension 08/19/24 10:23 Hx [...] Tobacco Use History Tobacco Use History - hardness tester: Tobacco Use History - hardness tester Tobacco Use Smoking Status Current every day smoker 08/19/24 10:23 Hx Tobacco Use Yes 08/19/24 10:23 Years Smoking Packs Smoked per Day 1 08/19/24 10:23 Smoking Cessation Date was within the last 15 years Hx Smoking Cessation Date Hx Smoking Cessation Counseling Hematologic Medial History Hematologic Hx - hardness tester: 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 Smoking Status: Current every day smoker tobacco type: cigarettes and e- cigarettes do you feel safe at home: Yes additional social history: Boyfriend - Terence Review of Systems (Anesthesia) ROS Narrative System reviewed and no additional complaints, except as documented. 08/25/24 1238 <Electronically signed by Carmelo Mart MD > Date _ Carmelo Mart MD Cosigner Signature: Date CC: ~ Signed [facility] Work Phone: 1(610) 449-559605-20-2025 History and physical note [facility] Medical Records Department [facility] [place] [address] History & Physical Exam 08/25/24 9163 MR#: [id number] Acct: [id number] Name: LM ALVARADO Rep #:[id number] : 1975 49 From: Treasure madsen MD PCP: Care Physician,No Primary Status :[facility] Location: [place] [address] History and Physical Date of Admission: 08/25/24 Intake Vital Signs 08/14/2507:22 08/18/2509:02 08/18/2509:02 Height 5 ft 4 in 5 ft 4 in 5 ft 4 in Weight: 119 lb BMI 20.4 BP 111/73 Intake Visit Reasons: Laparoscopic Oophorectomy Supervisor Metalizing Required: No Is patient in pain?: Yes [...] 3 current occupational status: employed current occupation: [employer] Smoking Status: Current every day smoker tobacco [...] to work. She is living in a correction at present. She states she wants to [...] comfortable and no acute distress Orientation: alert [facility] Head: normal to inspection and normocephalic Ears: [...] Level of Care Code No Charge Diagnoses Mittelschmerz N94.0 Pelvic pain R10.2 Hemorrhagic cyst of [...] MD; No Primary Care Physician ~* Signed [facility]05-20-2025 Consult note [facility] Medical Records Department [address] [place] [address] Pre-Anesthesia Evaluation 08/25/24 1236 MR#: [id number] Acct: [id number] Name: LM ALVARADO Rep #:[id number] : 1975 49 From: Carmelo Mart MD PCP: Care Physician,No Primary Status :[facility] Y Race: C Location: [facility] ASA Classification* ASA Classification ASA Classification: 2 [...] Left Oophorectomy Anesthesia History Anesthesia History - hardness tester: Anesthesia History - hardness tester Hx Hospitalization No 08/19/24 10:23 Any Problems [...] take am of surgery PONV PONV - hardness tester: PONV - hardness tester Female Yes 08/19/24 10:23 HX of Motion [...] 08/18/24 10:02 Respiratory Assessment Respiratory Assessment - hardness tester: Respiratory Tract Infection Hx - hardness tester Hx Respiratory Tract Infection No 08/19/24 10:23 STOP Sleep Apnea STOP Sleep Apnea - hardness tester: STOP Sleep Apnea - hardness tester Hx Hypertension No: hypotension 08/19/24 10:23 Hx [...] Tobacco Use History Tobacco Use History - hardness tester: Tobacco Use History - hardness tester Tobacco Use Smoking Status Current every day smoker 08/19/24 10:23 Hx Tobacco Use Yes 08/19/24 10:23 Years Smoking Packs Smoked per Day 1 08/19/24 10:23 Smoking Cessation Date was within the last 15 years Hx Smoking Cessation Date Hx Smoking Cessation Counseling Hematologic Medial History Hematologic Hx - hardness tester: 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 Specify any problems Hx of Preganancy in last 3 N/A 08/19/24 10:23 Months Nurse Filling Out Transfusion NBUCHER 08/19/24 10:23 & Questions: Date: 08/19/24 08/19/24 10:23 Time: :08/19/24 10:23 Patient unable to answer at this time (ie. confused, unrespo /Reproduction History /Reproductive History - hardness tester: /Reproductive Hx- hardness tester Hx Now No 08/19/24 10:23 Gestational Age [...] 20 mg tablet 20 mg PO DAILY 06/04/24/ 06:00 History clonazepam 0.5 mg tablet 0.5 [...] 3 current occupational status: employed current occupation: [employer] Smoking Status: Current every day smoker tobacco type: cigarettes and e-cigarettes do you feel safe at home: Yes additional social history: Boyfriend - Terence Review of Systems (Anesthesia) ROS Narrative System reviewed and no additional complaints, except as documented. 08/25/24 1238 > Date _ Carmelo Diez Signature: Date CC: ~ Signed [facility]05-20-2025 [facility] Medical Records Department [address] [place] [address] History Physical Exam 08/25/24 0747 MR#: [id number] Acct: [id number] Name: LM ALVARADO Rep #: [id number] : 1975 49 From: Treasure Cardoso MD PCP: Care Physician,No Primary Status:[facility] Location: [place] [address] History and Physical Date of Admission: 08/25/24 Intake Vital Signs 08/14/2507:22 08/18/2509:02 08/18/2509:02 Height 5 ft 4 in 5 ft 4 in 5 ft 4 in Weight: 119 lb BMI 20.4 BP 111/73 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 Smoking Status: Current every day smoker tobacco type: cigarettes and e-cigarettes do you feel safe at home: Yes additional social history: Boyfriend - Terence [facility] Laparoscopic Oophorectomy Details: LM ALVARADO is a 49 year old who presents for follow-up and preoperative visit. Patient has had continued intermittent pelvic pain worse on the right side that she has been to the ER multiple times for now. It is interfering with quality of life and daily life and limiting her ability to work. She is living in a correction at present. She states she wants to [...] external ears normal N (more content not included)...[facility]04-22-2025 Discharge summary [facility] Medical Records Department [address] [place] [address] Emergency Department Summary 07/28/24 MR#: [id number] Acct: [id number] Name: LM ALVARADO Rep #:[id number] : 1975 49 From: Juan Lovell MD [...] 3 current occupational status: employed current occupation: [employer] Smoking Status: Current every day smoker tobacco [...] Abdomen soft nontender. Movingall 4 extremities. 5-5 vp compliance strength. Dorsi plantarflexion intact. Fingertip to nose ckqd-xl-pywu well within normal limits. No drift. NIH [...] place andoriented to time Coordination / Balance: sbdjka-tf-jywx test normal and jvmp-tu-jbgs test normal Speech: speech normal Motor Exam: [...] Primary Care Provider: Care Physician,No Primary Referrals: [facility] Doctor,Out of [Non-Staff] - Activity Restrictions/Additional Instructions: Plenty of fluids and rest. Follow-up with your doctor if not improving. You may want to consider followingup with one of the concussion clinics in [place] if not improving. Motrin Tylenol for pain. Benadryl also for headaches. Print Language: Azerbaijani Disposition Disposition: Home, Self Care What to do if you have Problems For any increased pain, shortness of breath, bleeding, nausea or vomiting, chestpain, or any unexpected problems, contact your Primary Care Provider. Call [facility] ([phone]) or report tothe closest Emergency Room. Call 911 if necessary. 07/28/24 9173 Cosigner Signature (if applicable): CC: No Primary Care Physician ~ Signed [facility]04-22-2025 Discharge summary Author Juan Lovell [facility] Note Date/Time July 28, 2024 5:3 9pm [facility] Medical Records Department [address] [place] [address] Emergency Department Summary 07/28/24 MR#: [id number] Acct: [id number] Name: LM ALVARADO Rep #:[id number] : 1975 49 From: Juan Lovell MD [...] metronidazole (From Flag) Allergy Severe Anaphylaxis Verified 07/28/24 15:56 Family History Grandmother Ovarian cancer, Onset Age: 69 Aunt Breast cancer, Onset Age: 45 Surgical History History of endometrial ablation Hx of tubal ligation History of back surgery H/O: hysterectomy Social History number of children: 3 current occupational status: employed current occupation: [employer] Smoking Status: Current every day smoker tobacco type: cigarettes and e- cigarettes do you feel safe at home: Yes additional social history: Boyfriend - Terence EAMON ROS ED ROS Narrative Headache. Nausea. Photophobia. [...] Abdomen soft nontender. Movingall 4 extremities. 5-5 vp compliance strength. Dorsi plantarflexion intact. Fingertip to nose ferq-qm-mdmx well within normal limits. No drift. NIH [...] place andoriented to time Coordination / Balance: qjvbqu-fw-yorx test normal and uvyp-af-hvuz test normal Speech: speech normal Motor Exam: [...] Primary Care Provider: Care Physician,No Primary Referrals: [facility] Doctor,Out of [Non-Staff] - Activity Restrictions/Additional Instructions: Plenty of fluids and rest. Follow-up with your doctor if not improving. You may want to consider followingup with one of the concussion clinics in [place] if not improving. Motrin Tylenol for pain. Benadryl also for headaches. Print Language: Azerbaijani Disposition Disposition: Home, Self Care What to do if you have Problems For any increased pain, shortness of breath, bleeding, nausea or vomiting, chestpain, or any unexpected problems, contact your Primary Care Provider. Call [facility] ([phone]) or report to the closest Emergency Room. Call 911 if necessary. 07/28/24 8905 <Electronically signed by Juan Lovell MD> [place] Signature (if applicable): CC: No Primary Care Physician ~ Signed [facility] Work Phone: 1(557) 868-507804-09-2025 Evaluation note* Diagnosis Onset Date Resolution Status Admit Date Hemorrhagic cyst of ovary acute July 15, 2024 10:43am [facility] Work Phone: 1(766) 858-288704-09-2025 Evaluation note* Diagnosis Onset Date Resolution Status Admit Date Hemorrhagic cyst of ovary acute July 15, 2024 10:43am Hemorrhagic cyst of left ovary acute August 13, 2024 8:11am Hemorrhagic cyst of ovary acute August 13, 2024 8:11am Pelvic pain acute August 13, 2024 8:11am [facility] Work Phone: 1(138) 719-677604-09-2025 Evaluation note* Diagnosis Onset Date Resolution Status [...] salpingectomy acute August 25, 2024 8 :47pm [facility] Work Phone: 1([phone]) 477-858604-09-2025 Evaluation note* Diagnosis Onset Date Resolution Status [...] 9:14am Seroma acute September 08, 2024 10:29am [facility] Work Phone: 1([phone]) 315-432904-09-2025 Evaluation note* Diagnosis Onset Date Resolution Status [...] 10:29am Seroma acute September 10, 2024 8:27am [facility] Work Phone: 1(232) 425-789804-09-2025 Evaluation note* Diagnosis Onset Date Resolution Status Admit Date Hemorrhagic cyst of ovary acute July 15, 2024 10:43am Hemorrhagic cyst of ovary acute August 13, 2024 8:11am Pelvic pain acute August 13, 2024 8:11am Hemorrhagic cyst of left ovary inact lacey August 13, 2024 8:11am Hemorrhagic cyst of ovary acute August 18, 2024 9:57am Mittelschmerz acute August 18, 025 9:57am Pelvic pain acute August 18 [...] sheath hematoma inactive Ma y 2024 9:14am [facility] Work Phone: 1(690) 105-866004-02-2025 Radiology Diagnostic study note [facility] Imaging Services [address] [place] [id number] Pelvic w/ Transvaginal MR#: [id number] Acct: [id number] Name: LM ALVARADO Rep #: [id number] : 1975 F 49 From: Jerilyn Khan MD PCP: OUT OF TOWN DOCTOR Status: REG ER Study:Pelvic w/ Transvaginal Date of Exam: 07/08/24 Exam# [id number] Ordering Dr: Magda Louie DO PROCEDURE: PELVIC [...] not require further dedicated follow-up. Reading Location: [place] CC: Dr. Vickie Louie DO ~ Transportation Program Director: Signed [facility]04-02-2025 Radiology Diagnostic study note [facility] Imaging Services [address] [place] [id number] Abdomen/Pelvis W IV Cont ONLY MR#: [id number] Acct: [id number] Name: LM ALVARADO Rep #: [id number] : 1975 F 49 From: Hak ivone Afuwape DO PCP: OUT OF TOWN DOCTOR Status: REG ER Study:Abdomen/Pelvis W IV Cont ONLY Date of E xam: 07/08/24 Exam# [id number] Ordering Dr: Magda Louie DO PROCEDURE: ABDOMEN/PELVIS [...] above. Reading Location: [place] CC: Dr. Vickie Louie, DO ~ Transportation Program Director: Signed [facility]04-02-2025 History of Present illness Narrative* Kathleen Beck APRN.CNP - 07/08/2024 6:27 PM EDT Patient triaged at [facility]. Here today with worsening rlq abd pain over last month, now not able to sleep. Patient in no apparent distress at time of triage. I will refer to ER [facility] NoteHNO ID: [id number] Author: KATHLEEN BECK APRN.RENEE Service: ? Author Type: Nurse Practitioner Type: Progress Notes Filed: 07/08/2024 18:27 Note Text: Patient triaged at [facility]. Here today with worsening rlq abd pain over last month, now not able to sleep. Patient in no apparent distress at time of triage. I will refer to [facility]01-19-2025 Emergency department Note * Karla Sam PA-C - 04/26/2024 4:28 PM ESTAssociated Order(s): Incision and Drainage [facility] ED eMERGENCY dEPARTMENT eNCOUnter Pt Name: Lm [...] documented as signed by this procedure note Fagoter(s): N/A No supervision required Patients symptoms are consistent with sepsis, severe sepsis, or septic shock (If yes use .sepsiscoremeasure): No FINAL IMPRESSION 1. Abscess of groin, right DISPOSITION/PLAN DISPOSITION Discharge 04/26/2024 06:10:06 PM PATIENT REFERRED TO: Delano Mayen, [address] [facility] [address] Schedule an appointment as soon as possible [...] up to 2 days., Starting 04/26/2024, Until Sat04/28/2024 at 2359, Normal @[facility]([id number]:LAST:1)@ (Please note: Portions of this note were completed with a voice recognition program. Efforts were made to edit thedictations but occasionally words and phrases are mis-transcribed.) Form v2016.J.5-cn Karla Sam PA-C (electronically signed) Emergency Medicine Provider Karla Sam PA-C 04/27/24 0015 documented in this [facility]01-19-2025 Physician Emergency department Note* Karla Sam PA-C - 04/26/2024 4:28 PM ESTAssociated Order(s): Incision and Drainage [facility] ED eMERGENCY dEPARTMENT eNCOUnter Pt Name: Lm [...] tablet 1 tablet (1 tablet Oral Given 1/19/25 1720) Medical Decision Making Patient presents to [...] documented as signed by this procedure note Fagoter(s): N/A No supervision required Patients symptoms are consistent with sepsis, severe sepsis, or septic shock (If yes use .sepsiscoremeasure): No FINAL IMPRESSION 1. Abscess of groin, right DISPOSITION/PLAN DISPOSITION Discharge 04/26/2024 06:10:06 PM PATIENT REFERRED TO: Delano Mayen DO [address] [facility] [place] [address] Schedule an appointment as soon as possible [...] Starting 04/26/2024, Until 04/28/2024 at 2359, Normal [facility]([id number]:LAST:1)@ (Please note: Portions of this note were completed with a voice recognition program. Efforts were made to edit thedictations but occasionally words and phrases are mis-transcribed.) Form v2016.J.5-cn Karla Sam PA-C (electronically signed) Emergency Medicine Provider Karla Sam PA-C [facility]2414 [id number] Discharge instructions* Discharge Instructions* Hemal Choe [...] be sent through Care Everywhere. * Sciatica (Azerbaijani) documented in this [facility]12-23-2024 Telephone encounter Note* Telephone Encounter - Karla Ray - 03/30/2024 1:40 PM EST Patient returned call and was notified of message below regarding LAB results per provider. Patient acknowledged understanding of instructions and has no further questions. Karla Ray [facility]12-23-2024 Miscellaneous Notes* Telephone Encounter - Karla [...] go over results in more detail or sweet pickle maker a copy. Akilah Balderrama PA-C [facility] Telephone encounter Note * Telephone Encounter - Madiha Iyer MA - 03/30/2024 12:22 PM EST Left message for pt to call the office. Madiha Iyer MA [facility]12-23-2024 Telephone encounter Note* Telephone Encounter - Akilah Balderrama PA-C - 03/30/2024 12:09 PM EST Pt's Devendra genetic testing was all negative (good!). She can have an office visit to go over results in more detail or sweet pickle maker a copy. 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 [facility] Hospital Discharge instructions* Discharge Instructions* Jak [...] Everywhere. * Cellulitis (Skin Infection), Adult ED (Azerbaijani) documented in this [facility]10-25-2024 Note Attestation signed by Ashley Walton MD at 01/31/2024 11:44 PM .Teaching Physician Note: I saw and evaluated the patient. I personally obtained the matos and critical portions of the history and physical exam. I reviewed the resident's documentation and discussed the patient with the resident. I agree with the resident's medical decision making as documented in the resident's note. Ashley Walton MD ADMISSION INFORMATION - INPATIENT PSYCHIATRY PATIENT NAME: Lm MONACO is a 48 year old White female DATE OF ADMISSION: 01/28/2024 DATE OF DISCHARGE: 01/31/2024 SERVICE: [facility] ATTENDING NAME: Ashley Dobbs MD RESIDENT RESPONSIBLE FOR DISCHARGE SUMMARY: Patel Ng MD DIAGNOSTIC IMPRESSION: Bipolar I disorder, MRE manic , severe, without psychotic features FINAL DIAGNOSIS: Bipolar I disorder Patient Active Problem List: Bipolar 1 disorder, manic, moderate ([facility]) [F31.12] Vitamin D deficiency [E55.9] Vitamin B12 deficiency [E53.8] Migraine with status migrainosus, not intractable [G43.901] Psychosocial and Contextual Factors: Medication non-adherence REASON FOR ADMISSION: Poor sleep HISTORY OF PRESENT ILLNESS: Per triage: Hasn't slept for a year Per chart review: Office Visit yesterday with Brenda Cleary for Anxiety 09/03/22 ED Visit to [facility] 47 y.o. female presenting with concerns [...] and depression, s (more content not included)...[facility] WomenResourceKraft [id number] NoteHospital Medicine Progress Note Lm MONACO Age [age] year old female [id number] Admitted 01/28/2024 8:43 PM Hospital Day: [...] 2-3 days. Keep area clean Ronny Morrow APRN-[facility] [id number] NoteBEHAVIORAL HEALTH THERAPEUTIC EVALUATION Completed via combination of chart review, clinical observation, nursing report, and patient interview (as able) Patient Name: Lm MONACO Patient Date of : 1975 Patient Age: [age] year old Admission Date: 01/28/2024 Admission Diagnosis: Bipolar 1 disorder, manic, moderate (HCC) [586386] COVID PROTOCOL? 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 Drake Richards MDThe [facility] Physician Emergency department Note* Lore Smith [...] Will D/C on abx and return precautions. [id number] Emergency department Note* Lore Smith MD - [...] results given to . documented in this [id number] Hospital Discharge instructions* Discharge Instructions* Lore Smith MD - 12/20/2023 8:24 AM EDT In case of any worsening symptoms, fever/chills, flank pain, intractable nausea, please present back to ED for reassessment Follow up with PCP * Attachments The following attachments cannot be sent through Care Everywhere. * Urinary tract infection Discharge instructions (Azerbaijani) documented in this [id number] Emergency department Note* Mirta Posada EMR - 12/20/2023 4:47 AM EDT notified of critical CALCIUM value of 5.7. Hard copy of results given to . [id number] Instructions* Patient Instructions* Wendy Heaton PA-C - [...] worsening of symptoms whatsoever. [facility]The [facility] NoteHNO ID: [id number] Author: WENDY HEATON PA-C Service: ? Author Type: Physician Fagoter Type: Progress Notes Filed: 10/03/2023 08:40 Note Text: This note was created using Easel Learnriter. Subjective Lm Monaco is a 48 year [...] - DOXYCYCLINE MONOHYDRATE 100 MG TABLET [facility]06-27-2024 History of Present illness Narrative* Wendy Heaton PA-C - 10/03/2023 8:34 AM EDT This note was created using Easel Learnriter. Subjective Lm Monaco is a 48 year [...] TABLET Wendy Heaton PA-C documented in this encounterThe [facility]06-24-2024 NoteHNO ID: [id number] Author: DEVANTE GANDHI, DO Service: ? Author Type: Physician Type: Progress Notes Filed: 09/30/2023 15:21 Note Text: Urgent Care Note History of Present Illness: Lm Monaco is a 48 year old female who presents today for chief complaint: Sore Throat Patient states that she got back from [place] on Saturday. Today she woke up and [...] (FLONASE) 50 mcg/actuation nasal spray Use 1 [place] in each nostril daily at bedtime. (Patient [...] Follow up wi (more content not included)... [facility]06-24-2024 History of Present illness Narrative* Devante Gandhi, - 09/30/2023 2:47 PM EDT Urgent Care Note History of Present Illness: Lm Monaco is a 48 year old female who presents today for chief complaint: Sore Throat Patient states that she got back from [place] on Saturday. Today she woke up and [...] (FLONASE) 50 mcg/actuation nasal spray Use 1 [place] in each nostril daily at bedtime. (Patient [...] instructions. Devante Gandhi DO documented in this encounterThe [facility]06-24-2024 Nurse Note* Roma James MA - 09/30/2023 2:36 PM EDT Patient states that she got back from [place] on Saturday. She states yesterday she had some abd pain and diarrhea. Today she woke up and does not have a voice, sore and scratchy throat. NO fevers. NO medications. [facility] Nurse Note* Roma James MA - 09/30/2023 2:36 PM EDT Patient states that she got back from [place] on Saturday. She states yesterday she had some abd pain and diarrhea. Today she woke up and does not have a voice, sore and scratchy throat. NO fevers. NO medications. documented in this encounterThe [facility]05-15-2024 Telephone encounter Note * Telephone Encounter - Mere Castro RN - 08/21/2023 9:19 AM EDT [employer] message sent to patient informing her of Dr. Marques's message. [facility]05-15-2024 Miscellaneous Notes* Telephone Encounter - Mere Castro RN - 08/21/2023 9:19 AM EDT [employer] message sent to patient informing her of [...] Lumbar: 06/21/2023 and 07/02/2023 documented in this encounterThe [facility] Hospital05-14-2024 Telephone encounter Note * Telephone Encounter [...] would be the next step Thank you [facility] Work Phone: [phone]) 279-776205-14-2024 Telephone encounter Note* Telephone Encounter - Mree Castro RN - 08/20/2023 8:39 AM EDT Forwarded to provider for review. TOBIAS: 07/29/2023 Future OV: 10/02/2023 CT Lumbar: 06/21/2023 and 07/02/2023 [facility]04-22-2024 NoteHNO ID: [id number] Author: KINGSLEY MARQUES MD Service: ? Author [...] (FLONASE) 50 mcg/actuation nasal spray Use 1 [place] in each nostril daily at bedtime. (Patient [...] Negative Negative Contralateral Straigh (more content not included)...[facility] 07-29-2023 History of Present illness Narrative* [...] (FLONASE) 50 mcg/actuation nasal spray Use 1 [place] in each nostril daily at bedtime. (Patient [...] Patient will request CT lumbar spine from [facility] that was done 07/19/23 she states she [...] 2023 TIME: 12:50 PM documented in this encounterThe [facility] Hospital04-12-2024 NoteED Nursing Discharge Summary Entered On: 07/19/2023 14:08 EDT Performed On: 07/19/2023 14:07 EDT by Mary Caputo RN OR Information [id number] ED IV's : Continue upon transfer ED IV Site Assessment : Yes, Completed in IView ED Vitals Completed : Yes ED Final Assessment Completed : Yes ED Progress Note Completed : Yes Complete all PRN/Pain response forms? : Yes ED Disassociate Patient from Monitor : N/A Updated Depart Time : Yes ED Belongings sent w patient [id number] : Yes Valuables Complete : Not applicable Mary Caputo RN - 07/19/2023 14:07 EDT Education Instructions given to : Patient TeachBack Methodology : TeachBack, Explanation Barriers to Learning : None evident Mary Caputo RN - 07/19/2023 14:07 EDT ED Assistance Summary Assistance Given? : No Mary Caputo RN - 07/19/2023 14:07 EDT [facility]03-28-2024 NoteHNO ID: [id number] Author: WENDY HAETON PA-C Service: ? Author Type: Physician Fagoter Type: Progress Notes Filed: 07/04/2023 09:57 Note Text: This note was created using NoteWriter. Subjective Lm Monaco is a 48 year [...] MG TABLETS IN A DOSE PACK [facility]03-26-2024 NoteED Nursing Discharge Summary Entered On: 07/02/2023 14:00 EDT Performed On: 07/02/2023 13:54 EDT by Cinthia Hilario RN, DC Information [id number] ED IV's : No IV ED IV Site Assessment : No IV ED Vitals Completed : Yes ED Final Assessment Completed : Yes ED Progress Note Completed : Yes Complete all PRN/Pain response forms? : Yes ED Disassociate Patient from Monitor : Yes Updated Depart Time : Yes Mode of Discharge : Ambulatory Discharge Transportation : Private vehicle ED Belongings sent w patient [id number] : Yes Valuables Complete : Not applicable Cinthia Hilario RN - 07/02/2023 13:59 EDT Education Instructions given to : Patient TeachBack Methodology : Explanation, Printed Material Barriers to Learning : None evident Cinthia Hilario RN - 07/02/2023 13:59 EDT Post-Hospital Education Adult Gautam Diagnostic Results : Verbalizes understanding Disease Process : Verbalizes understanding Importance of Follow-Up Visits : Verbalizes understanding Plan of Care : Verbalizes understanding When to Call Health Care Provider : Verbalizes understanding Cinthia Hilario RN - 07/02/2023 13:59 EDT Medication Education Adult Gautam Med Dosage, Route, Scheduling : Verbalizes understanding Med Generic/Brand Name, Purpose, Action : Verbalizes understanding Cinthia Hilario RN - 07/02/2023 13:59 EDT ED Assistance Summary Assistance Given? : No Cinthia Hilario RN - 07/02/2023 13:59 EDT [facility]03-15-2024 NoteED Nursing Discharge Summary Entered On: 06/21/2023 14:18 EDT Performed On: 06/21/2023 14:15 EDT by Keith Fairbanks RN, DC Information [id number] ED IV's : No IV ED IV Site Assessment : No IV ED Vitals Completed : Yes ED Final Assessment Completed : Yes ED Progress Note Completed : Yes Complete all PRN/Pain response forms? : Yes ED Disassociate Patient from Monitor : N/A Updated Depart Time : Yes ED Belongings sent w patient [id number] : Not applicable Keith Fairbanks RN - [...] Keith Fairbanks RN - 06/21/2023 14:17 EDT [facility]03-10-2024 NoteHNO ID: [id number] Author: JEREMY WILLARD MD, PhD Service: ? Author Type: Physician Type: Progress Notes Filed: 06/16/2023 12:34 Note Text: [facility] [place] Patient Name: Lm Monaco Today's Date: June [...] Moderate This note was partially generated using [employer] recognition system, and there may be some incorrect words, spellings, and punctuation that were not noted in checking the note before saving.[facility]03-10-2024 History of Present illness Narrative* Jeremy Willard MD, PhD - 06/16/2023 12:07 PM EDT [facility] [place] Patient Name: Lm Monaco Today's Date: June [...] Moderate This note was partially generated using Attero voice recognition system, and there may be some incorrect words, spellings, and punctuation that were not noted in checking the note before saving. documented in this encounterThe [facility] Hospital03-10-2024 Nurse Note* Roma James MA - 06/16/2023 11:53 AM EDT Patient states that she finished antibiotics yesterday for an ear infection and she states that shedoes not feel any better. Patient states that she has been in a lot of pain especially at night andshe is unable to sleep. She is taking Ibuprofen and flonase. documented in this encounterThe [facility] Hospital03-01-2024 NoteHNO ID: [id number] Author: MORIAH MALIN MD Service: ? Author [...] (FLONASE) 50 mcg/actuation nasal spray Use 1 [place] in each nostril daily at bedtime. (Patient [...] mg tablet, CONSULT TO ENT Moriah Malin [facility]03-01-2024 History of Present illness Narrative* Moriah Malin [...] (FLONASE) 50 mcg/actuation nasal spray Use 1 [place] in each nostril daily at bedtime. (Patient [...] ENT Moriah Malin MD documented in this encounterThe [facility] Hospital02-27-2024 NoteED Nursing Discharge Summary Entered On: 06/04/2023 21:08 EST Performed On: 06/04/2023 18:38 EST by Sherri To RN OR Information [id number] ED IV's : No IV ED IV Site Assessment : No IV ED Vitals Completed : N/A ED Final Assessment Completed : N/A ED Progress Note Completed : N/A Complete all PRN/Pain response forms? : N/A ED Disassociate Patient from Monitor : N/A Updated Depart Time : Yes ED Belongings sent w patient [id number] : Yes Valuables Complete : Not applicable Sherri To RN - 06/04/2023 21:08 EST Education Instructions given to : Other: lwot TeachBack Methodology : Other: lwot Barriers to Learning : Other: lwot Sherri To RN - 06/04/2023 21:08 EST ED Assistance Summary Assistance Given? : No Sherri To RN - 06/04/2023 21:08 EST [facility]02-21-2024 Instructions* Patient Instructions* Wendy Heaton PA-C [...] even if the symptoms go away. 2. Obdg-myq-ctvnvdu pain medication may be taken or other [...] holding him or her). documented in this encounterThe [facility] Hospital02-21-2024 NoteHNO ID: [id number] Author: WENDY HEATON PA-C Service: ? Author Type: Physician Fagoter Type: Progress Notes Filed: 05/29/2023 09:42 Note Text: This note was created using Ventrus Biosciencester. Isacc Monaco is a 48 year old female [...] SPRAY,SUSPENSION - AMOXICILLIN 875 MG TABLET [facility]02-21-2024 History of Present illness Narrative* Wendy Heaton PA-C - 05/29/2023 9:37 AM EST This note was created using [employer] Biosciencester. Subjective Lm Monaco is a 48 year [...] TABLET Wendy Heaton PA-C documented in this encounterThe [facility] Hospital02-20-2024 NoteHNO ID: [id number] Author: MORIAH MALIN MD Service: ? Author Type: Physician Type: Progress Notes Filed: 05/28/2023 11:01 Note Text: This encounter was opened in error.[facility]02-20-2024 History of Present illness Narrative* Moriah Malin MD - 05/28/2023 11:01 AM EST This encounter was opened in error. documented in this encounterThe [facility] Hospital01-02-2024 NoteHNO ID: [id number] Author: Devante Gandhi, Service: ? Author Type: Physician Type: Progress [...] of medications. See patient instructions. Devante Gandhi, [facility]12-[facility]-2023 NoteHNO ID: [id number] Author: Svitlana Foster APRN.FIELD RESEARCH ASSOCIATE Service: ? Author Type: Nurse Practitioner Type: Progress Notes Filed: 03/10/2023 11:41 AM Note Text: This note was created using Easel Learnriter. Subjective HPI Lm Monaco is a 47 [...] A/B AND RSV NAAT, ROUTINE Svitlana Foster APRN.CNPBerger Hospital note Author Dot Foreman [facility] Note Date/Time August 26, 2024 12:12 pm [facility] Medical Records Department [address] [place] [address] Counseling Note - Pharmacy 08/26/24 1210 MR#: [id number] Acct: [id number] Name: LM ALVARADO Rep #:[id number] : 1975 49 From: Dot Foreman PCP: Care Physician,No Primary Status :AD[place] [facility] [place] [place] [facility] has performed discharge [...] Signature (if applicable): Date CC: ~ Signed [facility] Work Phone: Evaluation note* Diagnosis OPENED IN ERROR- Primary To allow closing an encounter opened in error (used in SmartSet) documented [facility] this encounter [facility]* Diagnosis Acute otitis media, left- Primary Unspecified otitis media documented in this encounter [facility]* Diagnosis Acute suppurative otitis media of left ear without spontaneous rupture of tympanic membrane, recurrence not specified- Primary TMJ tenderness, left documented in this encounter [facility]* Diagnosis Eustachian tube disorder, left- Primary documented in this encounter [facility]* Diagnosis Chronic left-sided low back pain with left-sided sciatica- Primary History of lumbar surgery documented in this encounter [facility]* Diagnosis Viral upper respiratory tract infection- Primary Acute upper respiratory infections of unspecified site Acute viral pharyngitis Acute pharyngitis documented in this encounter [facility]* Diagnosis Bronchitis- Primary Bronchitis, not specified as acute or chronic documented in this encounter [facility]* Diagnosis Chronic interstitial cystitis- Primary Right lower quadrant abdominal pain UTI (urinary tract infection), uncomplicated Urinary tract infection, site not specified Cyst of ovary, unspecified laterality [facility]* Diagnosis Skin infection- Primary Unspecified local infection of skin and subcutaneous tissue [facility]* Diagnosis Women's annual routine gynecological examination- [...] of gastrointestinal tract [facility]* Diagnosis Acute left-sided low back pain with left-sided sciatica- Primary documented in this encounter [facility] note* Diagnosis Abscess of groin, right- Primary documented in this encounter [facility] noteNo assessment information availableWLicking Memorial Hospital Work Phone: Evaluation note* Diagnosis Right lower quadrant abdominal pain- Primary Abdominal pain, right lower quadrant documented in this encounter [facility] note* Diagnosis Insect bite of left knee, initial encounter- Primary documented in this encounter [facility] note* Diagnosis Insect bite of left knee, subsequent encounter- Primary documented in this encounter [facility] note* Diagnosis Facial swelling- Primary Swelling, mass, or lump in head and neck [facility]* Attachments The following attachments cannot be sent through Care Everywhere. * Abscess Incision and Drainage Discharge Instructions (Azerbaijani) documented in this encounterSMarietta [facility] Hospitalsp[facility] Discharge instructions Additional Instructions Plenty of fluids and rest. Follow-up with your doctor if not improving. You may want to consider following up with one of the concussion clinics in [place] if not improving. Motrin Tylenol for pain. Benadryl also for headaches.[facility] Work Phone: Hospital Discharge instructionsAmbulatory Orders* 12 Lead EKG [[facility]] Location: None Selected [facility] Work Phone: Hospital Discharge instructions Additional Instructions Your lab work is stable. You have been given another prescription for further pain medication for further control. 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 Your CT also appears stable with no progression of fluid collection/hematoma. No signs of any other complication. Wear abdominal binder and splint your abdomen as we discussed in the ER.Take senna as needed for constipation if you are not starting to have bowel movements despite being on MiraLAX.[facility] Work Phone: Hospital Discharge instructions Additional Instructions Your physical exam is normal today. It is unlikely that there is any complication associated with your recent surgery.[facility] Work Phone: Reason for referral (narrative)* Diagnostic Procedure Only (Routine) - New Request Specialty Diagnoses / Procedures Referred By Contaniya t Referred To Contact [facility] Diagnoses Breast cancer screening by mammogram Procedures CHARITO SCREENING W MART SCREENING DIGITAL BREAST TOMOSYNTHESIS BI SCREENING MAMMOGRAPHY BI 2-VIEW BREAST INC Akilah Leigh PA-C [address] [facility] [facility] [address] [place] [address] [facility] [address] [place] [address] Referral ID Status Reason Start Date Expiration Date Visits Requested Visits Authorized [id number] New Request Auto-Generat ed Referral 03/11/2024 04/10/2025 1 [facility]No reason for referral information availableWLicking Memorial Hospital Work Phone: Summary Purpose Family History No Family History Records Found Relationship Condition Age at Onset Recorded Date/T franco grandmother Malignant neoplasm of ovary 69 aunt Malignant neoplasm of breast 45 Advance Directives No Advanced Directives Records Found Advance Directive Response Recorded Date/ Time Living Will No June 04 1:16am Do you have a Healthcare Power of Steel Fitter? No June 04, 2024 1:16am Living Will No June 04 6:54pm Do you have a Healthcare Power of Steel Fitter? No June 04, 2024 6:54pm Living Will No June 07, 2024 11:30am Do you have a Healthcare Power of Steel Fitter? No June 07, 2024 11:30am Living Will No July 08, 2024 6:56pm Do you have a Healthcare Power of Steel Fitter? No July 08, 2024 6:56pm Advance Directive Response Recorded Date/ Time Living Will No June 04 1:16am Do you have a Healthcare Power of Steel Fitter? No June 04, 2024 1:16am Living Will No June 04 6:54pm Do you have a Healthcare Power of Steel Fitter? No June 04, 2024 6:54pm Living Will No June 07, 2024 11:30am Do you have a Healthcare Power of Steel Fitter? No June 07, 2024 11:30am Living Will No July 08, 2024 6:56pm Do you have a Healthcare Power of Steel Fitter? No July 08, 2024 6:56pm Do you have a Healthcare Power of Steel Fitter? No July 28, 2024 4:05pm Advance Directive Response Recorded Date/ Time Living Will No June 04 025 1:16am Do you have a Healthcare Power of Steel Fitter? No June 04, 2024 1:16am Living Will No June 04 6:54pm Do you have a Healthcare Power of Steel Fitter? No June 04, 2024 6:54pm Living Will No June 07, 2024 11:30am Do you have a Healthcare Power of Steel Fitter? No June 07, 2024 11:30am Living Will No July 08, 2024 6:56pm Do you have a Healthcare Power of Steel Fitter? No July 08, 2024 6:56pm Do you have a Healthcare Power of Steel Fitter? No July 28, 2024 4:05pm Do you have a Healthcare Power of Steel Fitter? No August 09, 2024 11:36am Do you have a Healthcare Power of Steel Fitter? No August 11, 2024 10:44am Advance Directive Response Recorded Date/ Time Living Will No June 04 025 1:16am Do you have a Healthcare Power of Steel Fitter? No June 04, 2024 1:16am Living Will No June 04 6:54pm Do you have a Healthcare Power of Steel Fitter? No June 04, 2024 6:54pm Living Will No June 07, 2024 11:30am Do you have a Healthcare Power of Steel Fitter? No June 07, 2024 11:30am Living Will No July 08, 2024 6:56pm Do you have a Healthcare Power of Steel Fitter? No July 08, 2024 6:56pm Do you have a Healthcare Power of Steel Fitter? No July 28, 2024 4:05pm Do you have a Healthcare Power of Steel Fitter? No August 09, 2024 11:36am Do you have a Healthcare Power of Steel Fitter? No August 11, 2024 10:44am Do you have a Healthcare Power of Steel Fitter? No August 25, 2024 9:02pm Advance Directive Response Recorded Date/ Time Living Will No June 04 1:16am Do you have a Healthcare Power of Steel Fitter? No June 04, 2024 1:16am Living Will No June 04 6:54pm Do you have a Healthcare Power of Steel Fitter? No June 04, 2024 6:54pm Living Will No June 07, 2024 11:30am Do you have a Healthcare Power of Steel Fitter? No June 07, 2024 11:30am Living Will No July 08, 2024 6:56pm Do you have a Healthcare Power of Steel Fitter? No July 08, 2024 6:56pm Do you have a Healthcare Power of Steel Fitter? No July 28, 2024 4:05pm Do you have a Healthcare Power of Steel Fitter? No August 09, 2024 11:36am Do you have a Healthcare Power of Steel Fitter? No August 28, 2024 12:06pm Do you have a Healthcare Power of Steel Fitter? No August 30, 2024 11:49am Do you have a Healthcare Power of Steel Fitter? No August 11, 2024 10:44am Do you have a Healthcare Power of Steel Fitter? No August 25, 2024 9:02pm Advance Directive Response Recorded Date/ Time Living Will No June 04 1:16am Do you have a Healthcare Power of Steel Fitter? No June 04, 2024 1:16am Living Will No June 04 6:54pm Do you have a Healthcare Power of Steel Fitter? No June 04, 2024 6:54pm Living Will No June 07, 2024 11:30am Do you have a Healthcare Power of Steel Fitter? No June 07, 2024 11:30am Living Will No July 08, 2024 6:56pm Do you have a Healthcare Power of Steel Fitter? No July 08, 2024 6:56pm Do you have a Healthcare Power of Steel Fitter? No July 28, 2024 4:05pm Do you have a Healthcare Power of Steel Fitter? No August 09, 2024 11:36am Do you have a Healthcare Power of Steel Fitter? No August 28, 2024 12:06pm Do you have a Healthcare Power of Steel Fitter? No August 30, 2024 11:49am Do you have a Healthcare Power of Steel Fitter? No September 18, 2024 1:18pm Do you have a Healthcare Power of Steel Fitter? No August 11, 2024 10:44am Do you have a Healthcare Power of Steel Fitter? No August 25, 2024 9:02pm Date Activated [...] not specified Procedures CONSULT TO ENT OFFICE/OUTPATIENT [facility] 60 [place] [address] [place] [address] Referral ID Status Reason Start Date Expiration Date Visits Requested Visits Authorized [id number] Authorized PCP Requested Referral 06/07/2023 06/06/2024 1 1 Specialty Diagnoses / Procedures Referred By Cristofer ellsworth Referred To Contact [facility] Diagnoses Chronic left-sided low back pain with left-sided sciatica Procedures CONSULT TO PHYSICAL THERAPY PHYSICAL THERAPY EVALUATION HIGH COMPLEX 45 MINS Kingsley Marques MD [address] [place] [address] [facility] [address] [address] Referral ID Status Reason Start Date Expiration Date Visits Requested Visits Authorized [id number] Pending Review Auto-Generat ed Referral 07/29/2023 07/28/2024 1 1 Specialty Diagnoses / Procedures Referred By Cristofer ellsworth Referred To Contact XR IMAGING Diagnoses Chronic left-sided low back pain with left-sided sciatica Procedures XR LUMBAR LIMITED 2V AP/LAT RADEX SPINE LUMBOSACRAL 2/3 VIEWS Kingsley Marques MD [address] [place] [address] [place] [address] Referral ID Status Reason Start Date Expiration Date Visits Requested Visits Authorized [id number] Pending Review Auto-Generat ed Referral 07/29/2023 08/27/2024 [...] ER follow up right sided pain August 13 025 8:11am Laparoscopic Oophorectomy August 18, 2024 [...] ER follow up right sided pain August 13 025 8:11am Laparoscopic Oophorectomy August 18, 2024 [...] section and content) DATE CREATED AUTHOR 03/16/2018 [facility] DATE CREATED AUTHOR AUTHOR'S ORGANIZ ATION 01/18/2019 [facility] DATE CREATED AUTHOR AUTHOR'S ORGANIZ ATION 01/01/2020 [facility] DATE CREATED AUTHOR AUTHOR'S ORGANIZ ATION 03/09/2020 [facility] [place] DATE CREATED AUTHOR AUTHOR'S ORGANIZ ATION 06/18/2020 [facility] ([place]) DATE CREATED AUTHOR AUTHOR'S ORGANIZ ATION 11/29/2022 [facility] DATE CREATED AUTHOR AUTHOR'S ORGANIZ ATION 10/09/2023 [facility] DATE CREATED AUTHOR AUTHOR'S ORGANIZ ATION 10/09/2023 [facility] DATE CREATED AUTHOR AUTHOR'S ORGANIZ ATION 01/22/2024 [facility] DATE CREATED AUTHOR AUTHOR'S ORGANIZ ATION 01/25/2024 [facility] DATE CREATED AUTHOR AUTHOR'S ORGANIZ ATION 02/01/2024 [facility] DATE CREATED AUTHOR AUTHOR'S ORGANIZ ATION 04/28/2024 [facility] DATE CREATED AUTHOR AUTHOR'S ORGANIZ ATION 10/07/2024 [facility] DATE CREATED AUTHOR AUTHOR'S ORGANIZ ATION 01/23/2025 [facility] Care Teams (unrecognized sec tion and content) [employer] Consultant Relationship Specialty Start Date End Date Blaire Almaraz MD [address] [place] [id number] Resident Obstetrics/Gynecology 01/12/20 Marge Mora MSW [address] [place] [id number] S[employer] And Har[employer] Maker Social Work 01/12/20 [employer] Consultant Relationship Specialty Start Date End Date Blaire Almaraz MD [address] [place] [id number] Resident Obstetrics/Gynecology 01/12/20 Marge Mora MSW [address] [place] [id number] S[employer] And Harness Maker Social Work 01/12/20 [employer] Consultant Relationship Specialty Start Date End Date Blaire Almaraz MD [address] [place] [address] Resident Obstetrics/Gynecology 01/12/20 Marge Mora, ARNALDO [address] [place] [id number] S[employer] And Harness Maker Social Work 01/12/20 [employer] Consultant Relationship Specialty Start Date End Date Marge Mora MSW [address] [place] [phone] S[employer] And Harness Maker Social Work 01/12/20 [employer] Consultant Relationship Specialty Start Date End Date Delano Mayen DO [address] [place] [phone] PCP - General Family Medicine 03/11/24 Akilah Balderrama PA-C [address] [address] Women's Health Specialist 03/11/24 [employer] Consultant Relationship Specialty Start Date End Date Delano Mayen DO [address] [place] [id number] PCP - General Family Medicine 03/11/24 Akilah Balderrama PA-C [address] [address] Women's Health Specialist 03/11/24 [employer] Consultant Relationship Specialty Start Date End Date Delano Mayen DO [address] [place], [place] [id number] PCP - General Family Medicine 04/01/24 [employer] Consultant Relationship Specialty Start Date End Date Delano Mayen DO [address] [place], [place] [address] PCP - General Family Medicine 04/01/24 Team Status: Active Member Role Status Dates Out of [facility] Doctor Primary Care Provider Active Team Status: Inactive Member Role Status Dates Dr. Rik Marshall DO Attending Provider Active Start : June 04, 2024 End: June 04, 2024 Dr. Rik Marshall DO Emergency Provider Active Start : June 04, 2024 End: June 04, 2024 Team Status: Inactive Member Role Status Dates Dr. Richrad Burgos MD Attending Provider Active Sta rt: June 04, 2024 End: June 04, 2024 Dr. Richard Burgos MD Emergency Provider Active Sta rt: June 04, 2024 End: June 04, 2024 Out of [facility] Doctor Primary Care Provider Active Start: June 04, 2024 End: June 04, 2024 Team Status: Inactive Member Role Status Dates Out of [facility] Doctor Primary Care Provider Active Start: June 07, 2024 End: June 07, 2024 Mo Solo MD Attending Provider Active Star t: June 07, 2024 End: June 07, 2024 Mo Solo MD Emergency Provider Active Star t: June 07, 2024 End: June 07, 2024 Team Status: Inactive Member Role Status Dates Out of [facility] Doctor Primary Care Provider Active Start: July 08, 2024 End: July 08, 2024 Dr. Vickie Louie DO Emergency Provider Active S tart: July 08, 2024 End: July 08, 2024 [employer] Consultant Relationship Specialty Start Date End Date Delano Mayen DO [address] [place] [id number] PCP - General Family Medicine 03/11/24 Akilah Balderrama PA-C [facility] [address] Women's Health Specialist 03/11/24 Team Status: Active Member Role Status Dates No Primary Care Physician Primary Care Provider Active Team Status: Inactive Member Role Status Dates Out of [facility] Doctor Primary Care Provider Active Start: July 08, 2024 End: July 08, 2024 Dr. Vickie Louie DO Attending Provider Active S tart: July 08, 2024 End: July 08, 2024 Dr. Vickie Louie DO Emergency Provider Active S tart: July 08, 2024 End: July 08, 2024 Team Status: Inactive Member Role Status Dates Out of [facility] Doctor Primary Care Provider Active Start: July 15, 2024 End: July 15, 2024 Out of [facility] Doctor Referring Provider Active Sta rt: July [...] August 13, 2024 Dr. Moriah Mcdonough , Attending Provider Activ e Start: August 13, 2024 End: August 13, 2024 Team Status: Active Member Role Status Dates No Primary Care Physician Primary Care Provider Active Start: August 13, 2024 Dr. Moriah Mcdonough , Attending Provider Activ e Start: August 13, 2024 Dr. Moriah Mcdonough , Referring Provider Activ e Start: August 13, [...] Team Status: Active Member Role Status Dates [facility] Primary Care Provider A ctive Team Status: [...] September 08, 2024 End: September 08, 2024 [facility] Primary Care Provider A ctive Start: September 08, 2024 End: September 08, 2024 Team Status: Inactive Member Role Status Dates No Primary Care Physician Referring Provider Active Start: September 10, 2024 End: September 10, 2024 Dr. Treasure Cardoso MD Attending Provider Active Start: September 10, 2024 End: September 10, 2024 [facility] Primary Care Provider A ctive Start: September 10, 2024 End: September 10, 2024 Team Status: Inactive Member Role Status Dates [facility] Primary Care Provider A ctive Start: September 18, 2024 End: September 18, 2024 Dr. Love Emery DO Emergency Provider Active Start: September 18, 2024 End: September 18, 2024 [employer] Consultant Relationship Specialty Start Date End Date Delano Mayen DO [address] [place] [phone] PCP - General Family Medicine 03/11/24 Akilah Balderrama PA-C [address] [place] [id number] Women's Health Specialist 03/11/24 [employer] Consultant Relationship Specialty Start Date End Date Delano Mayen DO [address] [place] [phone] PCP - General Family Medicine 03/11/24 Akilah Balderrama PA-C [address] [place] [phone] Women's Health Specialist 03/11/24 [employer] Consultant Relationship Specialty Start Date End Date [facility] [address] [place] [address] PCP - General 12/11/24 Akilah Balderrama PA-C [address] [place] [phone] Women's Health Specialist 03/11/24 [employer] Consultant Relationship Specialty Start Date End Date Marge Mora, INFORMATION TECHNOLOGY SECURITY ANALYST [address] [place] [address] Saddle And Harness Maker Social Work 01/12/20 Source Comments (unrecognize d section and content) In the event this informatio n is protected by the Federal Confidentiality of Alcohol and Drug Abuse Patient Records regulations: The Federal rules restrict any use of the information to criminally investigate or prosecute any alcohol or drug abuse patient.[facility] the event this information is protected by the Federal Confidentiality of Alcohol and Drug Abuse Patient Records regulations: The Federal rules restrict any use of the information to criminally investigate or prosecute any alcohol or drug abuse patient.[facility] the event this information is protected by the Federal Confidentiality of Alcohol and Drug Abuse Patient Records regulations: The Federal rules restrict any use of the information to criminally investigate or prosecute any alcohol or drug abuse patient.[facility] the event this information is protected by the Federal Confidentiality of Alcohol and Drug Abuse Patient Records regulations: The Federal rules restrict any use of the information to criminally investigate or prosecute any alcohol or drug abuse patient.[facility] the event this information is protected by the Federal Confidentiality of Alcohol and Drug Abuse Patient Records regulations: The Federal rules restrict any use of the information to criminally investigate or prosecute any alcohol or drug abuse patient.[facility] the event this information is protected by the Federal Confidentiality of Alcohol and Drug Abuse Patient Records regulations: The Federal rules restrict any use of the information to criminally investigate or prosecute any alcohol or drug abuse patient.[facility] the event this information is protected by the Federal Confidentiality of Alcohol and Drug Abuse Patient Records regulations: The Federal rules restrict any use of the information to criminally investigate or prosecute any alcohol or drug abuse patient.[facility] the event this information is protected by the Federal Confidentiality of Alcohol and Drug Abuse Patient Records regulations: The Federal rules restrict any use of the information to criminally investigate or prosecute any alcohol or drug abuse patient.[facility] the event this information is protected by the Federal Confidentiality of Alcohol and Drug Abuse Patient Records regulations: The Federal rules restrict any use of the information to criminally investigate or prosecute any alcohol or drug abuse patient.[facility] the event this information is protected by the Federal Confidentiality of Alcohol and Drug Abuse Patient Records regulations: The Federal rules restrict any use of the information to criminally investigate or prosecute any alcohol or drug abuse patient.[facility] the event this information is protected by the Federal Confidentiality of Alcohol and Drug Abuse Patient Records regulations: The Federal rules restrict any use of the information to criminally investigate or prosecute any alcohol or drug abuse patient.[facility] the event this information is protected by the Federal Confidentiality of Alcohol and Drug Abuse Patient Records regulations: The Federal rules restrict any use of the information to criminally investigate or prosecute any alcohol or drug abuse patient.[facility] the event this information is protected by the Federal Confidentiality of Alcohol and Drug Abuse Patient Records regulations: The Federal rules restrict any use of the information to criminally investigate or prosecute any alcohol or drug abuse patient.[facility] HospitalIn the event this information is protected by the Federal Confidentiality of Alcohol and Drug Abuse Patient Records regulations: The Federal rules restrict any use of the information to criminally investigate or prosecute any alcohol or drug abuse patient.[facility] the event this information is protected by the Federal Confidentiality of Alcohol and Drug Abuse Patient Records regulations: The Federal rules restrict any use of the information to criminally investigate or prosecute any alcohol or drug abuse patient.[facility] Reason for Visit (unrecogniz ed section [...] Problem Specialty Diagnoses / Procedures Referred By Contac t Referred To Contact URGENT [facility]ARE CLINIC Diagnoses ear pain Procedures URGENT CARE Self [place], [facility] [address] [place] [address] Referral ID Status Reason Start Date Expiration Date Visits Requested Visits Authorized [id number] Authorized Patient Cleared - Qualified 100% FAS 06/16/2023 08/15/2023 99 99 Reason Comments New PT NEW INSURANCE Specialty Diagnoses / Procedures Referred By Cristofer ellsworth Referred To Contact [facility] [place] Diagnoses Chronic left-sided low back pain with left-sided sciatica Procedures CONSULT TO [facility] OFFICE/OUTPATIENT [facility] 60 MINUTES Wendy Heaton PA-C [address] [place] [address] Referral ID Status Reason Start Date Expiration Date V isits Requested Visits Authorized [id number] Closed PCP Requested Referral 07/04/2023 07/03/2024 1 [...] cut her leg while shaving. 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 Comments Results Reason Comments Back [...] 0506 0524 (Given - Provid er: Ann Jacobo RN) cefTRIAXone (ROCEPHIN) 1,000 mg in dextrose 50 mL ivpb 1,000 mg, Intravenous, EVERY 24 HOURS ANTIBIOTIC, First dose on Sat12/20/23 at 0559, Until Discontinued 0600 (IV New Bag - P rovider: Ann Jacobo RN)0710 (IV Stop - Provider: Nancy Avila, DEBRA) iohexol (OMNIPAQUE) 350 MG/ML injection (COMPLETED) 100 mL, Intravenous Push, Once at Radiology exam, 1 dose, Starting on Sat12/20/23 at 0457, Until Sat12/20/23 at 0447, Imaging Protocol Orders [id number] (Bolus given - Provider: Marge Otoole) ketorolac (TORADOL) 15 MG/ML injection (COMPLETED) 15 mg, Intravenous Push, ONCE, 1 dose, On Sat12/20/23 at 0342 0350 (Given - Provid er: Ann Jacobo RN) lactated ringers iv bolus (COMPLETED) 1,000 mL, at 999 mL/hr, Intravenous, FLUID BOLUS, 1 dose, On Sat12/20/23 at 0342 0350 (IV New Bag - P rovider: Ann Jacobo RN)0701 (IV Stop - Provider: Nancy Avila, DEBRA) LORazepam (ATIVAN) 2 MG/ML injection (COMPLETED) 0.5 mg, Intravenous Push, ONCE, 1 dose, On Sat12/20/23 at 0342 0350 (Given - Provid er: Ann Jacobo RN) LORazepam (ATIVAN) tablet (COMPLETED) 0.5 mg, Oral, STAT, 1 dose, On Sat12/20/23 at 0904 0841 (Given - Provid er: Nancy Avila, DEBRA) magnesium sulfate in dextrose 5 % 1,000 [...] 04/24/2024 04/25/2024 04/26/2024 lidocaine-EPINEPHrine (Xylocaine W/EPI) 1 %-1:[id number] injection 5 mL 5 mL, Infiltration, Once, [...] BE BASED ON THE PRIMARY CLINICAL RECORDS. [employer] [facility]. provides no warranty or guarantee of the accuracy or completeness of information in this document.
== END 2025-01-24 17:00 | disposition left against medical advice (07) ==
LOC: ED 17:09
DX: K08.89 Other specified disorders of teeth and supporting structures (principal)